=== PATIENT | female | born 1955 | race Caucasian/White ===

== ENCOUNTER 2020-07-11 10:33 | Emergency (ER) | payer MEDICARE, OTHER, SELFPAY ==
--- NOTE | ~2020-07-11 | XR_ITS ---
EXAMINATION: XR KNEE, LEFT CLINICAL INFORMATION: Pain COMPARISON: None TECHNIQUE: Four views of the left knee. FINDINGS: There is no acute fracture or subluxation. There is generalized osteopenia. There is a small peripherally corticated structure superimposing over the lateral femoral condyle. This may represent a small erosion. No significant joint fluid or opaque loose body. Trace proliferative changes. Extensive arterial calcification XR/XR knee LT 3V IMPRESSION: No acute fracture or subluxation. Minimal degenerative changes. No definite joint fluid
[2020-07-11 11:39] VITALS: BP 125/69; PULSE 61; RESP 18; TEMP 37.8; O2SAT 98; BMI 33.7
--- NOTE | 2020-07-11 13:31 | ED.LOWEXIN ---
HPI - Extremity Injury (Lower) General Chief Complaint: Extremity Injury, Lower Stated Complaint: knee pain Time Seen by Provider: 07/11/20 12:15 Source: patient Mode of arrival: ambulatory Limitations: no limitations History of Present Illness HPI Narrative: Left knee pain states was playing around grandson and and has pain to the medial aspect of the left knee. This occurred yesterday. No fall/ swelling or redness MD complaint: knee injury Onset (ago): day(s) Injury: Left: knee Place: home Severity: mild Relieving factors: immobilization Exacerbating factors: weight bearing Other symptoms: none Related Data Allergies Allergy/AdvReac Type Severity Reaction Status Date / Time No Known Allergies Allergy Verified 07/11/20 12:15 Review of Systems Review of Systems: Constitutional: No Weight loss, No Fever, No Chills, No Night Sweats, No Fatigue, No Malaise ENT/Mouth: No Hearing loss, No Ear Pain, No Nasal Congestion, No Sinus Pain, No Hoarseness, No sore throat, No Rhinorrhea, No Swallowing Difficulty Eyes: No Eye Pain, No Swelling, No Redness, No Foreign Body, No Discharge, No Vision Changes Cardiovascular: Negative Respiratory: Negative Gastrointestinal: Negative Genitourinary: Negative Musculoskeletal: No joint pain, No Myalgias, No Joint Swelling, knee pain as noted per HPI Skin: No Skin Lesions, No rash Neuro: No Weakness, No Numbness, No Paresthesias, No Loss of Consciousness, No Dizziness, No Headache Psych: No Anxiety/Panic, No Depression, No SI/HI/AH/VH, No Social Issues Heme/Lymph: Negative Endocrine: No Polyuria, No Polydipsia, No Temperature Intolerance Yes all other systems are reviewed and are negative [facility] Past Medical History Medical History Breast cancer Surgical History (Updated 07/11/20 @ 11:43 by Stacy Graves RN) H/O: hysterectomy Liver transplant recipient S/P hip replacement Social History Social History Advance Directives: No Advance Directives Information Provided: Yes Physical Exam Vital Signs: Vital Signs: Last Vital Signs Temp 100.0 F 07/11/20 11:39 Pulse 61 07/11/20 11:39 Resp 18 07/11/20 11:39 BP 125/69 07/11/20 11:39 Pulse Ox 98 07/11/20 11:39 Body Mass Index 33.7 Reviewed Initial attempt temporal overdressed Oral 98.5 Const: General: cooperative and healthy appearing; No acute distress or intoxicated appearing Nutritional Appearance: average body habitus Orientation/consciousness: patient oriented x3 HENMT: Head: Yes normal to inspection Ears: hearing grossly normal bilaterally Neck: Neck: Yes normal visual inspection, No positive Brudzinski's sign, No positive Kernig's sign and No tender Thyroid: Thyroid normal Resp: Effort & Inspection: normal respiratory effort Auscultation: clear to auscultation bilaterally Cardio: Jugular venous distension: no JVD Rhythm: regular rhythm Heart sounds: S1 normal heart sound present and S2 normal heart sound present : General: Yes no CVA tenderness Back/Spine/Pelvis: Back: no CVA tenderness Skin: General skin exam: no rashes or lesions noted Neuro: General: patient oriented x3 Extrem: General: Yes normal to inspection Upper/lower leg/hip images: 1. Of pain over the medial aspect of the knee with slight ecchymosis otherwise no evidence of effusion, erythema, swelling. Negative Homans. Neurovascular intact. Course Course Course Narrative: X-ray without acute findings, knee mobilizer and outpatient follow-up with orthopedics. MDM - Extremity Injury (Lower) Medical Records Attestation: I reviewed the patient's medical records. Lab Data Attestation: I reviewed the patient's lab results. Imaging Data Left knee x-ray: Radiologist's impression: [address] [id number] ReportSigned Patient: Praveena Douglass TMR#: [id number]: 5Acct:[id number]/Sex: 64 / FADM Date: 07/11/20Loc: HO.EDAttending Dr: Ordering Physician: Johann Champion NP Date of Service: 07/11/20 Procedure(s): XR knee LT 3V Accession Number(s): [id number] cc: Johann Champion SR VICE PRESIDENT~ EXAMINATION: XR KNEE, LEFT CLINICAL INFORMATION: Pain COMPARISON: None TECHNIQUE: Four views of the left knee. FINDINGS: There is no acute fracture or subluxation. There is generalized osteopenia. There is a small peripherally corticated structure superimposing over the lateral femoral condyle. This may represent a small erosion. No significant joint fluid or opaque loose body. Trace proliferative changes. Extensive arterial calcification XR/XR knee LT 3V IMPRESSION: No acute fracture or subluxation. Minimal degenerative changes. No definite joint fluid Dictated By:TANI CASAS MDSigned By:<Electronically signed by TANI CASAS MD in OV>07/11/20 1255 DD/ 1215TD/TT: Manager Graphic: Discharge Plan Discharge Clinical Impression: Knee sprain Qualifiers: Encounter type: initial encounter Involved ligament of knee: medial collateral ligament Laterality: left Qualified Code(s): S83.412A - Sprain of medial collateral ligament of left knee, initial encounter Patient Disposition: Home, Self-Care Instructions: Knee Immobilizer (ED), Knee Sprain (ED) Additional Instructions: Ice, elevate, compress Knee immobilizer for comfort Tylenol for pain discomfort Follow-up with orthopedics as needed Return if any concerns or symptoms Thank you Referrals: Brielle Jaimes MD [Physician] - 1 week
== END 2020-07-11 14:30 | disposition home or self-care (01) ==
PROVIDERS: Emergency Provider Emergency Medicine Emergency Medical Services; PCP Internal Medicine
DX: S83.412A Sprain of medial collateral ligament of left knee, initial encounter (principal); X50.1XXA Overexertion from prolonged static or awkward postures, initial encounter; Y93.83 Activity, rough housing and horseplay; Y92.019 Unspecified place in single-family (private) house as the place of occurrence of the external cause; Y99.9 Unspecified external cause status
CPT/HCPCS: 73562; 99283

== ENCOUNTER → 2021-10-25 12:57 | Outpatient (BNVA) | payer MEDICARE, OTHER, SELFPAY | PROVIDERS: PCP Internal Medicine; Visit Provider Physician Assistant | DX: K74.3 Primary biliary cirrhosis (principal); K52.9 Noninfective gastroenteritis and colitis, unspecified; K59.09 Other constipation | CPT/HCPCS: 99202 ==

== ENCOUNTER 2021-10-27 09:58 | Outpatient (REF) | payer MEDICARE, OTHER, SELFPAY ==
[2021-10-27 10:16] LABS: MANUAL DIFF FLAG NO
[2021-10-27 10:52] LABS: Basophils Percent Auto 0.7 % (0-2); Eosinophils Absolute Auto 0.1 X10*3/uL (0.0-0.4); Eosinophils Percent Auto 2.8 % (0-4); Hematocrit 39.8 % (37.0-47.0); Hemoglobin 12.9 g/dl (12.0-16.0); Imm Gran Abs Auto 0.02 X10*3/uL (0.00-0.03); Imm Gran Pct Auto 0.5 % (0.0-0.4); Lymphocytes Absolute Auto 0.9 X10*3/uL (1.2-4.9); Lymphocytes Percent Auto 19.9 % (20-40); Mean Corpuscular HGB Conc 32.4 g/dl (31.0-35.0); Mean Corpuscular Hemoglobin 29.4 pg (27.0-33.0); Mean Corpuscular Volume 90.7 fL (80.0-98.0); Mean Platelet Volume 10.2 fL (9.4-12.3); Monocytes Absolute Auto 0.4 X10*3/uL (0.1-1.2); Monocytes Percent Auto 9.5 % (2-11); Neutrophils Absolute Auto 2.9 x10*3/uL (2.0-8.3); Neutrophils Percent Auto 66.6 % (45-73); Platelet Count 129 X10*3/uL (160-400); Red Blood Count 4.39 X10*6/uL (4.20-5.50); Red Cell Distribution Width 14.2 % (11.0-16.0); White Blood Count 4.3 X10*3/uL (4.8-10.8)
[2021-10-27 11:29] LABS: Erythrocyte Sedimentation Rate 5 MM/HR (0-20)
[2021-10-27 11:38] LABS: Alanine Aminotransferase 21 U/L (0-31); Albumin Level 4.1 g/dL (3.5-5.0); Alkaline Phosphatase 146 U/L (39-117); Anion Gap 13 (12-20); Aspartate Amino Transferase 27 U/L (5-31); Bilirubin Total 1.3 mg/dL (0.0-1.0); Blood Urea Nitrogen 12 mg/dL (9-16); C Reactive Protein 2.99 mg/dL (< or = 0.50); Carbon Dioxide 24 mmol/L (22-29); Chloride 107 mmol/L (96-108); Estimated Glomerular Filt Rate > 60; Glucose Random 95 mg/dL (60-115); Potassium 4.2 mmol/L (3.3-5.1); Sodium 140 mmol/L (135-145)
[2021-10-27 11:48] LABS: Thyroid Stimulating Hormone 1.15 uIU/mL (0.32-4.0)
[2021-10-27 17:46] LABS: CDiff Gene PCR NEGATIVE (Negative)
[2021-11-01 07:32] LABS: Transglutaminase IgA <1.0 U/mL
[2021-11-03 14:32] LABS: Endomysial IgA Antibody Negative (Negative)
== END 2021-10-27 09:59 | disposition home or self-care (01) ==
LOC: HO.LAB 09:58
PROVIDERS: PCP Internal Medicine; Visit Provider Physician Assistant
DX: K59.09 Other constipation (principal); K52.9 Noninfective gastroenteritis and colitis, unspecified; K74.3 Primary biliary cirrhosis
CPT/HCPCS: 36415; 80053; 84443; 85025; 85652; 86140; 86231; 86364; 87493

== ENCOUNTER 2021-11-02 07:23 | Day surgery (SDC) | payer MEDICARE, OTHER, SELFPAY ==
--- NOTE | 2021-11-01 10:30 | P.CONAN_ITS ---
Documented by User: Shyann Griffin NP 11/01/21 10:34 HPI - Anesthesia Eval Consult details Narrative: 66yo F for Upper Endoscopy and Colonoscopy s/p liver transplant 2015 d/t primary biliary cirrhosis. ? recurrence based on biopsy PMFSH Active Problems Active Problems: All Active Problems (Updated 10/27/21 @ 13:27 by Melissa Ordaz PA-C) Chronic diarrhea (Acute) Primary biliary cholangitis (Acute) Past Medical History Medical History (Updated 11/01/21 @ 10:31 by Shyann Griffin NP) Breast cancer Primary biliary cholangitis Surgical History Surgical History H/O: hysterectomy Liver transplant recipient S/P hip replacement Social History Social History (Updated 10/27/21 @ 13:24 by Melissa Ordaz PA-C) Household Members: Spouse Household Members Other:: , children Alcohol intake: never Patient Tobacco Use Status: Former Tobacco user Use of substances other than those prescribed or required for medical reasons: No Advance Directives: No Advance Directives Information Provided: Yes Recently lost weight without trying: Yes How much weight loss: 14-23 pounds Eating poorly because of decreased appetite: Yes Nutrition screen score: 5 Current occupational status: retired Meds Allergies Allergy/AdvReac Type Severity Reaction Status Date / Time hydromorphone [From Dilaudid] Allergy Severe Hallucinati Verified 10/25/21 13:11 ons Sulfa (Sulfonamide AdvReac Severe Rash Verified 10/25/21 13:11 Antibiotics) Home Medications Medication Instructions Recorded Confirmed Last Taken Type cholecalciferol (vitamin D3) 1,250 1,250 mcg PO QWEEK 10/25/21 10/25/21 Unknown History mcg (50,000 unit) capsule citalopram 40 mg tablet (Celexa) 40 mg PO DAILY 10/25/21 10/25/21 11/02/21 History 40 mg gabapentin 300 mg tablet,extended 300 mg PO TID 10/25/21 10/25/21 Unknown History release 24 hr lisinopril 10 mg tablet 10 mg PO DAILY 10/25/21 10/25/21 11/02/21 History 10 mg tacrolimus 1 mg capsule, 1 mg PO Q12H 10/25/21 10/25/21 11/02/21 History immediate-release 1 mg ursodiol 300 mg capsule 300 mg PO TID 10/25/21 10/25/21 11/02/21 History 300 mg Exam Exam Date and Time: November 01, 2021 1030 Pertinent Lab Results Pertinent Lab Results: Laboratory Tests 10/27/21 10/27/21 10:14 10:14 WBC 4.3 L Hgb 12.9 Hct 39.8 Plt Count 129 L Sodium 140 Potassium 4.2 Chloride 107 Carbon Dioxide 24 BUN 12 Creatinine 0.81 Total Bilirubin 1.3 H AST 27 ALT 21 Alkaline Phosphatase 146 H C-Reactive Protein 2.99 H Total Protein 7.0 Albumin 4.1 TSH 1.15 INR 1.2 on 07/2021 Assessment and Plan Assessment Anesthesia Assessment: Chart Reviewed Documented by User: Kamar Domínguez MD 11/02/21 08:25 [facility] Past Medical History Medical History (Updated 11/01/21 @ 10:31 by Shyann Griffin NP) Breast cancer Primary biliary cholangitis Family History Family history of problems with anesthesia: No Surgical History Surgical History H/O: hysterectomy Liver transplant recipient S/P hip replacement History of Problems with Anesthesia: No Social History Social History (Updated 10/27/21 @ 13:24 by Melissa Ordaz PA-C) Household Members: Spouse Household Members Other:: , children Alcohol intake: never Patient Tobacco Use Status: Former Tobacco user Use of substances other than those prescribed or required for medical reasons: No Advance Directives: No Advance Directives Information Provided: Yes Recently lost weight without trying: Yes How much weight loss: 14-23 pounds Eating poorly because of decreased appetite: Yes Nutrition screen score: 5 Current occupational status: retired Meds Allergies Allergy/AdvReac Type Severity Reaction Status Date / Time hydromorphone [From Dilaudid] Allergy Severe Hallucinati Verified 10/25/21 13:11 ons Sulfa (Sulfonamide AdvReac Severe Rash Verified 10/25/21 13:11 Antibiotics) Home Medications Medication Instructions Recorded Confirmed Last Taken Type cholecalciferol (vitamin D3) 1,250 1,250 mcg PO QWEEK 10/25/21 10/25/21 Unknown History mcg (50,000 unit) capsule citalopram 40 mg tablet (Celexa) 40 mg PO DAILY 10/25/21 10/25/21 11/02/21 History 40 mg gabapentin 300 mg tablet,extended 300 mg PO TID 10/25/21 10/25/21 Unknown History release 24 hr lisinopril 10 mg tablet 10 mg PO DAILY 10/25/21 10/25/21 11/02/21 History 10 mg tacrolimus 1 mg capsule, 1 mg PO Q12H 10/25/21 10/25/21 11/02/21 History immediate-release 1 mg ursodiol 300 mg capsule 300 mg PO TID 10/25/21 10/25/21 11/02/21 History 300 mg Exam Airway Mallampati Class: II TM Dist: >3cm Neck ROM: Full Loose/Missing/Broken Teeth: No Heart: rrr+[id number] Lungs: cta b/l Assessment and Plan Assessment Anesthesia Assessment: Anesthesia Plan Discussed Final Anesthetic Review Family History of Problems with Anesthesia: No History of Problems with Anesthesia: No NPO: Yes ASA Class: III Final Preanesthetic Review: No Changes in Pt Med Stat, Meds/Allgs Chart Reviewed, Consent Obtained/Reviewed and Anes Risks/Benef Reviewed Patient Risk: Intermediate Procedure Risk: Low Assessment/Block/Sedation in SS: Assess/Block/Sedation-SS Anesthetic Plan Anesthetic Plan: MAC: and Agree w/ Assess. and Plan Disposition: Standard PACU
[2021-11-02] VITALS (7 sets, daily range): BP systolic 111–125; BP diastolic 61–79; PULSE 85–107; RESP 16–20; TEMP 36.6–36.8; O2SAT 91–98; BMI 29.2
--- NOTE | ~2021-11-02 | XR_ITS ---
EXAMINATION: XR CHEST CLINICAL INFORMATION: Shortness of breath and cough. Postoperative. COMPARISON: None TECHNIQUE: Frontal view of the chest was obtained. FINDINGS: The patient is slightly rotated into a left posterior oblique position. Lungs are adequately expanded and grossly clear. No evidence of airspace disease or pleural effusion. Cardiac silhouette has normal size and contour. Pulmonary vascular pattern is normal. Multilevel degenerative arthropathy of the spine and shoulders. Cholecystectomy clips in right upper quadrant of the abdomen. XR/XR chest 1V IMPRESSION: No evidence of pneumonia. No acute pulmonary findings.
[2021-11-02] MEDS: Lactated Ringers 1,000 ML 100 ML IVCONT (07:54)
--- NOTE | 2021-11-02 08:38 | MHC.SHP ---
Pre-Procedural Eval Section A Date of Service: 11/02/21 The patient is an INPATIENT: No The History & Physical has been completed within 30 days and I have reviewed it.: Yes Section B Chief Complaint: Noninfective gastroenteritis and colitis,cirrhosis Allergies: Allergies Allergy/AdvReac Type Severity Reaction Status Date / Time hydromorphone [From Dilaudid] Allergy Severe Hallucinati Verified 10/25/21 13:11 ons Sulfa (Sulfonamide AdvReac Severe Rash Verified 10/25/21 13:11 Antibiotics) Plan Diagnosis/Plan: Unchanged I have reviewed the history and physical and performed a pertinent physical examination on my patient. No changes have occurred unless specified.EGD and colonsocopy for eval for diarrhea
--- NOTE | 2021-11-02 08:38 | W.PM.OPN ---
Operative Note Operative Note Date of Service: 11/02/21 Narrative: Operative Information Procedure Description: EGD, Colonoscopy Indication: diarrhea Anesthesia: MAC FLEXIBLE TRANSORAL UPPER GASTROINTESTINAL ENDOSCOPY AND COLONOSCOPY PROCEDURE NOTE UPPER ENDOSCOPY Consent: Indications for the procedure and potential complications of bleeding, perforation, reaction to medications and missed diagnosis were discussed with the patient and informed consent was obtained. Instrument: Olympus GIF H 190 J mid size upper endoscope Monitoring: Vital signs and clinical assessment, continuous EKG monitoring, Pulse oximetry, Carbon Dioxide monitoring and blood pressure monitoring were done throughout the procedure. Procedure: The patient was placed in the left lateral decubitis position and pre-procedure medications were administered and a bite block was placed. The endoscope was inserted into the mouth and advanced under direct vision to the third part of duodenum. A careful inspection was made as the upper endoscope was withdrawn including a retroflexed examination of the proximal stomach; Findings and interventions are described below. Findings: Larynx:normal Esophagus: GE junction at 35 cm, diaphragm hiatus at 35 cm, bogginess and erythema at GEJ Stomach: Streaky gastritis and erythema at antrum with erosion noted. Biopsies were obtained. Grade 2 flap valve on retroflexed examination of the cardia. Duodenum: Normal bulb and descending duodenum, bx taken Intervention: Biopsies as noted above COLONOSCOPY Instrument: Olympus variable stiffness pediatric scope 190L Colonoscopy Monitoring: Vital signs and clinical assessment, continuous EKG monitoring, Pulse oximetry, Carbon Dioxide monitoring and blood pressure monitoring were done throughout the procedure. Colon withdrawal time was 10 minutes. Procedure: The patient was placed in the left lateral decubitis position and pre-procedure medications were administered. After a digital rectal examination of the ano-rectum, the video colonoscope was inserted into the rectum and advanced through the colon to the cecum/TI. The colonoscope was slowly withdrawn in a retrograde panoramic fashion and the colon mucosa was carefully examined including a retroflexed view of the rectum. Findings and interventions are described below. Procedure Difficulty: easy Findings: Terminal Ileum-normal, bx taken some bilious colored noted in colon random colon bx taken Cecum:normal Ascending Colon: normal Transverse Colon -normal Descending Colon:normal Sigmoid Colon: 8 mm sessile polyp removed with cold snare and then 1 clip applied for hemostasis Rectum: Retroflexion with small internal hemorrhoids, grade I Anorectum - normal Colon preparation: [place] Bowel Preparation Scale Right colon; 3 Transverse colon: 3 Left colon; 3 (0 = Unprepared colon segment with mucosa not seen due to solid stool that cannot be cleared. 1 = Portion of mucosa of the colon segment seen, but other areas of the colon segment not well seen due to staining, residual stool and/or opaque liquid. 2 = Minor amount of residual staining, small fragments of stool and/or opaque liquid, but mucosa of colon segment seen well. 3 = Entire mucosa of colon segment seen well with no residual staining, small fragments of stool or opaque liquid) Impression and Post Procedure Diagnosis: Endoscopy Findings: erosive gastritis esophagitis Colonoscopy Findings: polyp internal hemorrhoids Plan: Await Pathology results Repeat Colonoscopy in 5 years if adenomatous polyp, 10 yrs if hyperplastic or earlier if clinically indicated High fiber diet leaflet avoid straining at stool, epsom salts and sitz bath, anusol supps or cream if bx neg can consider trial of cholestyramine or welchol Above findings were reviewed with the patient and relevant handouts were provided if indicated.
--- NOTE | 2021-11-02 09:26 | PC.NURSE ---
patient awake coughing/ vomiting sao2 88% RA 3lt N/C applied patient c/o of left sided chest pain Dr. Galloway aware at bedside Dr. Domínguez notified.
[2021-11-02] MEDS: Albuterol/Iprat 2.5/0.5MG 3 ML AMPUL.NEB INHALE (09:39)
[2021-11-02] MEDS: Ampicillin Sodium/Sulbactam Na 1.5 GM in 0.9 % Sodium Chloride 100 ML IV (10:10)
== END 2021-11-02 09:20 | disposition home or self-care (01) ==
PROVIDERS: PCP Internal Medicine; Visit Provider Internal Medicine Gastroenterology
PROC: (CPT 45385; principal; 2021-11-02 08:30)
DX: K52.9 Noninfective gastroenteritis and colitis, unspecified (principal); D12.5 Benign neoplasm of sigmoid colon; K64.0 First degree hemorrhoids; K29.50 Unspecified chronic gastritis without bleeding; K20.80 Other esophagitis without bleeding; Z94.4 Liver transplant status; R06.02 Shortness of breath; R07.81 Pleurodynia; K44.9 Diaphragmatic hernia without obstruction or gangrene; Z79.899 Other long term (current) drug therapy; Z88.0 Allergy status to penicillin; Z88.8 Allergy status to other drugs, medicaments and biological substances
CPT/HCPCS: 45385; 45380; 43239; 71045; 88305; 88342; 94640; J0295

== ENCOUNTER 2021-11-02 10:16 | Inpatient (IN) | payer MEDICARE, OTHER, SELFPAY ==
--- NOTE | 2021-11-02 | ECG_ITS ---
Test Reason : sob Blood Pressure : / mmHG Vent. Rate : 089 BPM Atrial Rate : 089 BPM P-R Int : 148 ms QRS Dur : 074 ms QT Int : 378 ms P-R-T Axes : 041 -16 -22 degrees QTc Int : 459 ms Normal sinus rhythm Nonspecific ST and T wave abnormality Abnormal ECG No previous ECGs available Referred By: Generic ED Physician Electronically Signed By:JESSICA KEMP MD
--- NOTE | ~2021-11-02 | CT_ITS ---
EXAMINATION: CT ANGIOGRAM OF THE CHEST WITH AND WITHOUT CONTRAST (CT PULMONARY ANGIOGRAM FOR PE) CLINICAL INFORMATION: Reason for Exam hypoxia, left sided chest pain COMPARISON: None TECHNIQUE: Prior to contrast administration, noncontrast localization images were obtained. Subsequently, multidetector volumetric imaging was performed from the thoracic inlet to below the diaphragms following the administration of 80 mL Omnipaque 350 intravenous contrast. No contrast reaction reported Sagittal, coronal, and MIP oblique sagittal reformatted images were obtained on the CT workstation, uploaded to PACS, and reviewed. This CT examination was performed using dose optimization techniques as appropriate, variously including the following: *Automated exposure control *Adjustment of mA and/or kV according to patient size (this includes techniques or standardized protocols for targeted exams where dose is matched to indication/reason for exam; i.e. extremities or head) *Use of iterative reconstruction technique Total exam dose-length product 184 mGy-cm FINDINGS: QUALITY OF STUDY/CONTRAST BOLUS: Satisfactory. PULMONARY ARTERIES: No central or segmental pulmonary emboli. THORACIC AORTA: No aneurysm or dissection. LUNG: There is a patchy alveolar infiltrate, in the posterior left upper lung, left mid lung, extending down to the left mid to lower lung. This likely reflects pneumonia. Right lung grossly clear. PLEURA: No pleural effusion or pneumothorax. MEDIASTINUM: Normal heart size. No pericardial effusion. No hilar or mediastinal lymphadenopathy. No evidence of septal bowing or right heart strain. Coronary artery calcifications are observed. CHEST WALL/AXILLA: No axillary or internal mammary lymphadenopathy. OSSEOUS STRUCTURES: No acute or suspicious osseous abnormality. UPPER ABDOMEN: There is a moderate amount of perisplenic ascites. The spleen is prominent. Stomach is diffusely thick walled fluid-filled. There are surgical clips in the gallbladder fossa distention of the pancreatic duct. These findings can all be correlated with a follow-up CT of the abdomen and pelvis to be performed with oral and IV contrast. No reflux of contrast into the hepatic veins to suggest elevated right heart pressures. CT/CT angio chest PE protocol IMPRESSION: Splenomegaly. Perisplenic ascites. Left mid and lower lung pneumonia. No evidence for PE. VTE: negative
[2021-11-02 10:35] VITALS: BP 119/66; PULSE 88; RESP 18; TEMP 36.7; O2SAT 98; BMI 30.4
--- NOTE | 2021-11-02 10:36 | ED_ITS ---
HPI - Chest Pain General Chief Complaint: Dyspnea Stated Complaint: Chest pain Time Seen by Provider: 11/02/21 10:36 Source: patient, RN notes reviewed and old records reviewed Mode of arrival: ambulatory Limitations: no limitations History of Present Illness HPI narrative: 66 yo female with history of primary biliary cholangitis 6 years ago at [facility], chronic diarrhea, hx breast cancer in 2000 s/p lumpectomy and XRT, poor appetite with 30 lb weight loss since July who presents to the ER for evaluation of left sided chest pain, hypoxia, vomiting, shortness of breath while in recovery from a EGD/colonoscopy suite today. Patient reports waking up feeling at her baseline today. She did not eat or drink today. She went to for her EGD/colonoscopy for evaluation of poor appetite, chronic diarrhea and weight loss. She states when she woke up from anesthesia she vomited, was short of breath had left-sided chest pain. She reports the pain is in her uppr left chest, worse with deep breaths, movement and palpation. No radiation. She placed on supplemental O2 and brought to the ER for further evaluation. MD complaint: chest pain Onset (ago): minute(s) Timing of current episode: constant Prior episodes: No Onset: other Pain location: left chest Pain radiation: none Severity: moderate Pain scale (0-10): 7 Quality: aching and sharp Relieving factors: nothing Exacerbating factors: inspiration, palpation and movement Associated symptoms: nausea, vomiting, dyspnea and cough Risk Factors Coronary artery disease risk factors: none Thoracic aortic dissection risk factors: none Related Data Home Medications Medication Instructions Recorded Confirmed citalopram 40 mg tablet (Celexa) 40 mg PO DAILY 10/25/21 11/02/21 lisinopril 10 mg tablet 10 mg PO DAILY 10/25/21 11/02/21 acetaminophen 325 mg tablet 650 mg PO Q4H PRN Pain (Scale 11/02/21 11/02/21 Score 1-3) calcium carbonate 300 mg (750 mg) 300 mg PO QID PRN Indigestion 11/02/21 11/02/21 chewable tablet (Tums) cholecalciferol (vitamin D3) 25 25 mcg PO DAILY 11/02/21 11/02/21 mcg (1,000 unit) tablet (Vitamin D3) gabapentin 300 mg capsule 1 - 3 cap PO BEDTIME 11/02/21 11/02/21 tacrolimus 0.5 mg capsule, 1 cap PO BID 11/02/21 11/02/21 immediate-release ursodiol 500 mg tablet 1 tab PO BID 11/02/21 11/02/21 Previous Rx's Medication Instructions Recorded methylcellulose (laxative) 500 mg 500 mg PO BID #60 tabs 10/25/21 tablet (Citrucel) Allergies Allergy/AdvReac Type Severity Reaction Status Date / Time hydromorphone [From Dilaudid] Allergy Severe Hallucinati Verified 10/25/21 13:11 ons Sulfa (Sulfonamide AdvReac Severe Rash Verified 10/25/21 13:11 Antibiotics) Review of Systems Review of Systems: Constitutional: No Fever, No Chills, +weight loss ENT/Mouth: No sore throat, No Rhinorrhea, No Swallowing Difficulty Eyes: No Eye Pain, No Swelling, No Redness Cardiovascular: + Chest Pain, + SOB, + Orthopnea, No Edema Respiratory: + Cough, No Sputum, No Wheezing, +dyspnea Gastrointestinal: + Nausea, + Vomiting, + Diarrhea, No abdominal Pain, No Hematochezia, No Melena Genitourinary: No Dysuria, No Urinary Frequency, No Hematuria Musculoskeletal: No joint pain, No Myalgias Skin: No Skin Lesions, No rash Neuro: + Weakness, No Numbness, No Dizziness, No Headache Psych: No Anxiety/Panic, + Depression Heme/Lymph: No Bruising, No Lymphadenopathy Endocrine: No Polyuria, No Polydipsia PMFSH Past Medical History Medical History Breast cancer Primary biliary cholangitis Surgical History H/O: hysterectomy Liver transplant recipient S/P hip replacement Family History Family History Mother CAD (coronary artery disease) Sister Ovarian cancer Social History Social History Household Members: Spouse Household Members Other:: , children Alcohol intake: never Patient Tobacco Use Status: Former Tobacco user Use of substances other than those prescribed or required for medical reasons: No Advance Directives: No Current occupational status: retired Physical Exam Vital Signs: Vital Signs: Last Vital Signs Temp 99.6 F 11/02/21 16:00 Pulse 100 11/02/21 16:00 Resp 18 11/02/21 16:00 BP 139/78 11/02/21 16:00 Pulse Ox 96 11/02/21 16:00 O2 Del Method 11/02/21 16:00 O2 Flow Rate 2 11/02/21 16:00 BMI result Body Mass Index 30.4 Appearance: Alert. Oriented X3. No acute distress. Eyes: Pupils equal, round and reactive to light. ENT: Pharynx normal. Neck: Normal inspection. Neck supple. CVS: Normal heart rate and rhythm. Pulses normal. Tenderness of the chest wall on the upper left quadrant and extending into left axilla Respiratory: No respiratory distress. Breath sounds with coarse crackles at the left base. Abdomen: Well-healed surgical scar on the abdomen. Soft and nontender. +BS x4 Skin: Skin warm and dry. Normal skin color. Normal skin turgor. No rashes. Extremities: No lower extremity edema. Neuro: Oriented X 3. No motor deficit. No sensory deficit. Course Course Course Narrative: 66-year-old female with a history of primary biliary cholangitis status post liver transplant 6 years ago who presents to the ER for evaluation of left-sided chest pain, shortness of breath and vomiting after she had a routine and off the being colonoscopy in the GI suite today. Patient reportedly dropped her oxygen saturations into the 80s, with vomiting, very short of breath at the time. A chest x-ray was done in postop and patient was brought to the emergency department. On arrival to the ER patient reports left-sided chest pain, close to her left axillary area that is reproducible. Initial SpO2 98% on room air, however when patient was laid flat she desatted to 81%, was very short of breath and tachypneic. She also spiked a low-grade fever to 100.5. Suspect aspiration pneumonitis. Empiric IV Zosyn ordered. She did get a dose of IV Unasyn in the procedure suite. Case discussed with Dr. Galloway who is recommending CT angio to rule out PE given her breast cancer history, shortness of breath, chest pain. Reevaluation(s) Reevaluation #1: Labs show pancytopenia, her hemoglobin dropped point half in the last week. Will plan to heme check stools when she has a bowel movement. Platelets are also slightly lower at 93,000 from 129,000. Troponin is less than 3.5. Given her pain onset is less than 6 hours ago, will plan to repeat her troponin 3 hours. EKG without STEMI. Pain improved after morphine. Lab analyzer down, unable to get CTA of her chest until her chemistry is back. Reevaluation #2: CTA showing left middle and left lung pneumonia. Remains on O2. Will plan for admission. MDM - Chest Pain Medical Records Data Attestation: I reviewed the patient's medical records. Lab Data Attestation: I reviewed the patient's lab results. Result diagrams: 11/02/21 11:14 11/02/21 11:14 Labs: Lab Results 11/02/21 11/02/21 11/02/21 Range/Units 11:14 11:14 11:14 WBC 4.0 L (4.8-10.8) X10*3/uL RBC 3.85 L (4.20-5.50) X10*6/uL Hgb 11.4 L (12.0-16.0) g/dl Hct 34.9 L (37.0-47.0) % MCV 90.6 (80.0-98.0) fL MCH 29.6 (27.0-33.0) pg MCHC 32.7 (31.0-35.0) g/dl RDW 14.2 (11.0-16.0) % Plt Count 93 L D (160-400) X10*3/uL MPV 10.0 (9.4-12.3) fL Immature Gran % (Auto) 0.5 H (0.0-0.4) % Neut % (Auto) 78.6 H (45-73) % Lymph % (Auto) 11.8 L (20-40) % [place] % (Auto) 7.3 (2-11) % Eos % (Auto) 1.3 (0-4) % Baso % (Auto) 0.5 (0-2) % Lymph # (Auto) 0.5 L (1.2-4.9) X10*3/uL [place] # (Auto) 0.3 (0.1-1.2) X10*3/uL Eos # (Auto) 0.1 (0.0-0.4) X10*3/uL Baso # (Auto) 0.0 (0.0-0.2) X10*3/uL Abs Immat Gran (auto) 0.02 (0.00-0.03) X10*3/uL Absolute Neuts (auto) 3.1 (2.0-8.3) x10*3/uL Absolute Nucleated RBC 0.000 (0.0-0.012) X10*3/uL Nucleated RBC % (auto) 0.0 (0.0-0.2) /100WBC PT (10.0-13.1) SEC INR (0.9-1.1) Sodium 143 (135-145) mmol/L Potassium 3.9 (3.3-5.1) mmol/L Chloride 108 (96-108) mmol/L Carbon Dioxide 24 (22-29) mmol/L Anion Gap 15 (12-20) BUN 9 (9-16) mg/dL Creatinine 0.73 (0.5-1.4) mg/dL Estim Creat Clear Calc 62.9 Estimated GFR > 60 Random Glucose 106 (60-115) mg/dL Lactic Acid (0.5-2.0) mmol/L Calcium 8.6 (8.4-10.2) mg/dL Magnesium 1.6 (1.6-2.6) mg/dL Total Bilirubin 1.4 H (0.0-1.0) mg/dL Direct Bilirubin 0.9 H (0.0-0.5) mg/dL AST 21 (5-31) U/L ALT 13 (0-31) U/L Alkaline Phosphatase 132 H (39-117) U/L Troponin I High Sens < 3.5 (<3.5-17.0) ng/L B-Natriuretic Peptide 63 (<100) pg/mL Total Protein 6.0 L (6.5-8.0) g/dL Albumin 3.5 (3.5-5.0) g/dL COVID-19 (LINDSEY) (Negative) COVID-19 Clin Com 11/02/21 11/02/21 11/02/21 Range/Units 11:57 11:58 11:58 WBC (4.8-10.8) X10*3/uL RBC (4.20-5.50) X10*6/uL Hgb (12.0-16.0) g/dl Hct (37.0-47.0) % MCV (80.0-98.0) fL MCH (27.0-33.0) pg MCHC (31.0-35.0) g/dl RDW (11.0-16.0) % Plt Count (160-400) X10*3/uL MPV (9.4-12.3) fL Immature Gran % (Auto) (0.0-0.4) % Neut % (Auto) (45-73) % Lymph % (Auto) (20-40) % [place] % (Auto) (2-11) % Eos % (Auto) (0-4) % Baso % (Auto) (0-2) % Lymph # (Auto) (1.2-4.9) X10*3/uL [place] # (Auto) (0.1-1.2) X10*3/uL Eos # (Auto) (0.0-0.4) X10*3/uL Baso # (Auto) (0.0-0.2) X10*3/uL Abs Immat Gran (auto) (0.00-0.03) X10*3/uL Absolute Neuts (auto) (2.0-8.3) x10*3/uL Absolute Nucleated RBC (0.0-0.012) X10*3/uL Nucleated RBC % (auto) (0.0-0.2) /100WBC PT 14.6 H (10.0-13.1) SEC INR 1.3 H (0.9-1.1) Sodium (135-145) mmol/L Potassium (3.3-5.1) mmol/L Chloride (96-108) mmol/L Carbon Dioxide (22-29) mmol/L Anion Gap (12-20) BUN (9-16) mg/dL Creatinine (0.5-1.4) mg/dL Estim Creat Clear Calc Estimated GFR Random Glucose (60-115) mg/dL Lactic Acid 1.4 (0.5-2.0) mmol/L Calcium (8.4-10.2) mg/dL Magnesium (1.6-2.6) mg/dL Total Bilirubin (0.0-1.0) mg/dL Direct Bilirubin (0.0-0.5) mg/dL AST (5-31) U/L ALT (0-31) U/L Alkaline Phosphatase (39-117) U/L Troponin I High Sens (<3.5-17.0) ng/L B-Natriuretic Peptide (<100) pg/mL Total Protein (6.5-8.0) g/dL Albumin (3.5-5.0) g/dL COVID-19 (LINDSEY) Negative (Negative) COVID-19 Clin Com See Note ECG Data ECG #1: Attestation: I personally reviewed and interpreted this ECG as follows: ECG interpretation date: 11/02/21 ECG interpretation time: 15:28 Prior ECG tracings: not available for review Interpretation: Normal sinus rhythm, heart rate 89 beats per minute, normal IA interval, normal QTC, no ST segment elevations or depressions. Critical Care Time Critical Care Time Critical Care Time: Yes Total Critical Care Time: 38 Attestation: I have personally provided critical care time exclusive of time spent on separately billable procedures. Time includes review of lab data, radiology results, discussion with consultants, and monitoring for potential decompensation. Intervention performed as documented. Discharge Plan Discharge Clinical Impression: Aspiration pneumonitis, Acute respiratory failure with hypoxia Patient Disposition: Admitted As Inpatient
[2021-11-02 11:17] LABS: MANUAL DIFF FLAG NO
[2021-11-02 11:36] LABS: Basophils Percent Auto 0.5 % (0-2); Eosinophils Absolute Auto 0.1 X10*3/uL (0.0-0.4); Eosinophils Percent Auto 1.3 % (0-4); Hematocrit 34.9 % (37.0-47.0); Hemoglobin 11.4 g/dl (12.0-16.0); Imm Gran Abs Auto 0.02 X10*3/uL (0.00-0.03); Imm Gran Pct Auto 0.5 % (0.0-0.4); Lymphocytes Absolute Auto 0.5 X10*3/uL (1.2-4.9); Lymphocytes Percent Auto 11.8 % (20-40); Mean Corpuscular HGB Conc 32.7 g/dl (31.0-35.0); Mean Corpuscular Hemoglobin 29.6 pg (27.0-33.0); Mean Corpuscular Volume 90.6 fL (80.0-98.0); Monocytes Absolute Auto 0.3 X10*3/uL (0.1-1.2); Monocytes Percent Auto 7.3 % (2-11); Neutrophils Absolute Auto 3.1 x10*3/uL (2.0-8.3); Neutrophils Percent Auto 78.6 % (45-73); Red Blood Count 3.85 X10*6/uL (4.20-5.50); Red Cell Distribution Width 14.2 % (11.0-16.0)
[2021-11-02 11:37] LABS: Troponin-I High Sensitivity < 3.5 ng/L (<3.5-17.0)
[2021-11-02 11:43] LABS: Platelet Count 93 X10*3/uL (160-400)
[2021-11-02 12:00] VITALS: PULSE 110; RESP 22; TEMP 38.1; O2SAT 81
[2021-11-02 12:11] LABS: B Type Natriuretic Peptide 63 pg/mL (<100)
[2021-11-02] MEDS: ondansetron HCL 4 MG/2 ML VIAL IVPUSH (12:17)
[2021-11-02] MEDS: Morphine Sulfate 4 MG/ML CARTRIDGE IVPUSH (12:17)
[2021-11-02 12:26] LABS: COVID-19 Test Negative (Negative)
[2021-11-02] MEDS: Acetaminophen 325 MG TABLET 975 MG PO (12:28)
[2021-11-02 12:31] LABS: INTERNATIONAL NORM RATIO 1.3 (0.9-1.1); Prothrombin Time 14.6 SEC (10.0-13.1)
[2021-11-02 13:23] LABS: Lactic Acid 1.4 mmol/L (0.5-2.0)
[2021-11-02 13:42] LABS: Alanine Aminotransferase 13 U/L (0-31); Albumin Level 3.5 g/dL (3.5-5.0); Alkaline Phosphatase 132 U/L (39-117); Anion Gap 15 (12-20); Aspartate Amino Transferase 21 U/L (5-31); Bilirubin Direct 0.9 mg/dL (0.0-0.5); Bilirubin Total 1.4 mg/dL (0.0-1.0); Blood Urea Nitrogen 9 mg/dL (9-16); Calcium 8.6 mg/dL (8.4-10.2); Carbon Dioxide 24 mmol/L (22-29); Chloride 108 mmol/L (96-108); Creatinine Clr Calc Pharmacy 62.9; Estimated Glomerular Filt Rate > 60; Glucose Random 106 mg/dL (60-115); Magnesium 1.6 mg/dL (1.6-2.6); Potassium 3.9 mmol/L (3.3-5.1); Sodium 143 mmol/L (135-145)
--- NOTE | 2021-11-02 14:00 | PHA.MEDREC ---
Pharmacy Consult ? Medication Reconciliation Pharmacy has completed the medication reconciliation. Tacrolimus dose recently changed from 1 mg bid to 0.5 mg bid and ursodiol changed from 300 mg to 500 mg bid. Pt takes 1-3 capsules of gabapentin at bedtime. Spoke with family member and patient in the ED>
[2021-11-02] MEDS: iohexoL 350 MG/ML 100 ML INFUS..BTL IV (14:56)
[2021-11-02] MEDS: Piperacillin Sodium/Tazobactam 4.5 GM in 0.9 % Sodium Chloride 100 ML IV (15:58)
[2021-11-02 16:00] VITALS: BP 139/78; PULSE 100; RESP 18; TEMP 37.6; O2SAT 96
--- NOTE | 2021-11-02 16:38 | P.HPHOSP_ITS ---
History of Present Illness Date of Service: 11/02/21 Chief Complaint: emesis, sob, hypoxia 66F pmh of PBC s/p liver transplant, breast ca 2000 s/p lumpectomy and XRT, htn, has been having diarrhea and weight loss, so had elective EGD/colonoscopy which showed, erosive gastritis, esophogitis, polyp and internal hemorrhoids. after procedure patient had billous vomitting and aspirated some contents, she became dyspneic and hypoxic. was sent to ED, CTA showed: Splenomegaly. Perisplenic ascites. Left mid and lower lung pneumonia. No evidence for PE. pateint had low grade fever, was 81% on room air, 96% on 2L. sob improved. Review of Systems Review of Systems: Constitutional:weight loss Eyes: denies blurry vision ENT: denies sore throat CVS: denies chest pain Respiratory: dyspnea GI: abdominal pain : denies dysuria MSK: denies neck pain Skin: denies rash Neuro: denies specific motor weakness Psych: denies suicidal ideation Endocrine: denies heat/cold intolerance Hematologic: denies easy bleeding Allergy: denies hives [facility] Medical History Breast cancer Primary biliary cholangitis Family History Mother CAD (coronary artery disease) Sister Ovarian cancer Surgical History H/O: hysterectomy Liver transplant recipient S/P hip replacement Social History Household Members: Spouse Household Members Other:: , children Alcohol intake: never Patient Tobacco Use Status: Former Tobacco user Use of substances other than those prescribed or required for medical reasons: No Advance Directives: No Current occupational status: retired Meds Allergies Allergy/AdvReac Type Severity Reaction Status Date / Time hydromorphone [From Dilaudid] Allergy Severe Hallucinati Verified 10/25/21 13:11 ons Sulfa (Sulfonamide AdvReac Severe Rash Verified 10/25/21 13:11 Antibiotics) Active Medications: Current Medications Escitalopram Oxalate (Escitalopram Oxalate 20 Mg Tablet) 20 mg PO DAILY [facility]MAN Gabapentin (Gabapentin 300 Mg Capsule) 300 mg PO BEDTIME [facility]MAN Lisinopril (Lisinopril 10 Mg Tablet) 10 mg PO DAILY SHERMAN; Protocol Pharmacy Consult (Consult Rx Perform Med Rec) 1 each MISCELLANE ONCE PRN PRN Reason: Consult order Tacrolimus (Tacrolimus 0.5 Mg Capsule) 0.5 mg PO BID [facility] Ursodiol (Ursodiol 300 Mg Capsule) 600 mg PO BID [facility] Home Medications Medication Instructions Recorded Confirmed Last Taken Type citalopram 40 mg tablet (Celexa) 40 mg PO DAILY 10/25/21 11/02/21 11/02/21 History 40 mg lisinopril 10 mg tablet 10 mg PO DAILY 10/25/21 11/02/21 11/02/21 History 10 mg acetaminophen 325 mg tablet 650 mg PO Q4H PRN Pain (Scale 11/02/21 11/02/21 11/02/21 History Score 1-3) calcium carbonate 300 mg (750 mg) 300 mg PO QID PRN Indigestion 11/02/21 11/02/21 11/02/21 History chewable tablet (Tums) cholecalciferol (vitamin D3) 25 25 mcg PO DAILY 11/02/21 11/02/21 11/02/21 History mcg (1,000 unit) tablet (Vitamin D3) gabapentin 300 mg capsule 1 - 3 cap PO BEDTIME 11/02/21 11/02/21 11/02/21 History tacrolimus 0.5 mg capsule, 1 cap PO BID 11/02/21 11/02/21 11/02/21 History immediate-release ursodiol 500 mg tablet 1 tab PO BID 11/02/21 11/02/21 11/02/21 History Physical Exam Vital Signs and Narrative: Vital Signs: Last Vital Signs Temp 99.6 F 11/02/21 16:00 Pulse 100 11/02/21 16:00 Resp 18 11/02/21 16:00 BP 139/78 11/02/21 16:00 Pulse Ox 96 11/02/21 16:00 O2 Del Method 11/02/21 16:00 O2 Flow Rate 2 11/02/21 16:00 BMI result Body Mass Index 30.4 General: frail, ill appearing HEENT: atraumatic Neck: normal to visual inspection CVS: S1, S2, RRR Resp: Crackles bilateral Chest: non tender GI: soft, non tender, distended : no CVA tenderness Skin: no rashes Extremities: no edema Neuro: Oriented X3, grossly intact Psych: cooperative Results Labs CBC and Chem 7: 11/02/21 11:14 11/02/21 11:14 Labs: Laboratory Results - last 24 hr 11/02/21 11/02/21 11/02/21 11:14 11:14 11:14 MCV 90.6 MCH 29.6 MCHC 32.7 RDW 14.2 Plt Count 93 L D MPV 10.0 Immature Gran % (Auto) 0.5 H Neut % (Auto) 78.6 H Lymph % (Auto) 11.8 L [place] % (Auto) 7.3 Eos % (Auto) 1.3 Baso % (Auto) 0.5 Lymph # (Auto) 0.5 L [place] # (Auto) 0.3 Eos # (Auto) 0.1 Baso # (Auto) 0.0 Abs Immat Gran (auto) 0.02 Absolute Neuts (auto) 3.1 Absolute Nucleated RBC 0.000 Nucleated RBC % (auto) 0.0 PT INR Anion Gap 15 Estim Creat Clear Calc 62.9 Estimated GFR > 60 Random Glucose 106 Lactic Acid Calcium 8.6 Magnesium 1.6 Total Bilirubin 1.4 H Direct Bilirubin 0.9 H AST 21 ALT 13 Alkaline Phosphatase 132 H B-Natriuretic Peptide 63 Total Protein 6.0 L Albumin 3.5 COVID-19 ([facility]) COVID-19 Clin Com 11/02/21 11/02/21 11/02/21 11:57 11:58 11:58 MCV MCH MCHC RDW Plt Count MPV Immature Gran % (Auto) Neut % (Auto) Lymph % (Auto) [place] % (Auto) Eos % (Auto) Baso % (Auto) Lymph # (Auto) [place] # (Auto) Eos # (Auto) Baso # (Auto) Abs Immat Gran (auto) Absolute Neuts (auto) Absolute Nucleated RBC Nucleated RBC % (auto) PT 14.6 H INR 1.3 H Anion Gap Estim Creat Clear Calc Estimated GFR Random Glucose Lactic Acid 1.4 Calcium Magnesium Total Bilirubin Direct Bilirubin AST ALT Alkaline Phosphatase B-Natriuretic Peptide Total Protein Albumin COVID-19 ([facility]INDSEY) Negative COVID-19 Clin Com See Note Imaging Radiologist's Impressions: Impressions Chest CTA 11/02/21 14:54 IMPRESSION: Splenomegaly. Perisplenic ascites. Left mid and lower lung pneumonia. No evidence for PE. VTE: negative Assessment and Plan (1) Aspiration pneumonitis: Status: Acute Plan 66F with pbc s/p transplant, htn, presented s/p egd/colonsocpy with hypoxia sepsis and acute hypoxic respiratory failure due to aspiration pneuonia unasyn, follow up cultures, wean o2 as tolerated thrombocytopenia due to splenomegaly from pbc not severe sepsis PBC s/p transplant continue tacrolimus, ursodiol htn lisinopril mood disorder celexa dvt prophylaxis - lovenox full code pateint with sepsis and hypoxia with risk factors of PBC, frailty, immunosupres darin due to transplant status, therefore, will likely require atleast 2 midnights in hospital Quality Stroke Does the patient have a stroke diagnosis?: No VTE Prior VTE?: No VTE Risk Level:: Medical - moderate - high VTE Device Contraindication: Treatment Not Indicated VTE Drug Contraindication: N/A - Med Ordered
[2021-11-02 18:05] LABS: Troponin-I High Sensitivity 5.4 ng/L (<3.5-17.0)
--- NOTE | 2021-11-02 19:06 | PC.NURSE ---
Assumed care of this pt. at 1900 - report from Danielle Martin RN
[2021-11-02 20:31] VITALS: BP 93/48; PULSE 79; RESP 20; TEMP 36.8; O2SAT 97
[2021-11-02] MEDS: UrsodioL 300 MG CAPSULE 600 MG PO (21:18)
[2021-11-02] MEDS: Gabapentin 300 MG CAPSULE PO (21:18)
[2021-11-02] MEDS: Ampicillin Sodium/Sulbactam Na 3 GM in 0.9 % Sodium Chloride 100 ML IV (21:20)
--- NOTE | 2021-11-02 21:24 | MHC.CM.PN ---
IMM 11/02. Met with admitted patient with bed assignment pending. A&Ox4. HCP at home. HCP/ Jose Luis Douglass ([phone]). Pt had liver transplant 2015. Moderna x2/boosted x2. Also received antibodies, that she gets every 6 months. No DME/services. D/C plan: home without services. to provide transportation. CM to follow for d/c needs.
[2021-11-02] MEDS: Tacrolimus 0.5 MG CAPSULE PO (22:14)
[2021-11-02 23:49] VITALS: BP 120/70; PULSE 75; RESP 17; TEMP 37.2; O2SAT 97; BMI 30.2
[2021-11-02] MEDS: 0.9 % Sodium Chloride Flush 3 ML SYRINGE IVFLUSH (23:49)
[2021-11-03] MEDS: Acetaminophen 325 MG TABLET 650 MG PO (00:03)
[2021-11-03 03:16] VITALS: BP 107/62; PULSE 69; RESP 16; TEMP 36.7; O2SAT 96
[2021-11-03 06:00] LABS: Hematocrit 30.9 % (37.0-47.0); Hemoglobin 9.9 g/dl (12.0-16.0); Mean Corpuscular Hemoglobin 29.2 pg (27.0-33.0); Mean Corpuscular Volume 91.2 fL (80.0-98.0); Mean Platelet Volume 10.6 fL (9.4-12.3); Red Blood Count 3.39 X10*6/uL (4.20-5.50); Red Cell Distribution Width 14.2 % (11.0-16.0); White Blood Count 4.6 X10*3/uL (4.8-10.8)
[2021-11-03 06:06] LABS: Platelet Count 83 X10*3/uL (160-400)
[2021-11-03] MEDS: Omeprazole 40 MG CAPSULE.DR PO (06:08)
[2021-11-03] MEDS: Ampicillin Sodium/Sulbactam Na 3 GM in 0.9 % Sodium Chloride 100 ML IV (06:08)
[2021-11-03 06:16] LABS: Anion Gap 14 (12-20); Blood Urea Nitrogen 9 mg/dL (9-16); Carbon Dioxide 25 mmol/L (22-29); Chloride 105 mmol/L (96-108); Creatinine Clr Calc Pharmacy 61.8; Estimated Glomerular Filt Rate > 60; Glucose Fasting 91 mg/dL (60-99); Potassium 3.7 mmol/L (3.3-5.1); Sodium 140 mmol/L (135-145)
[2021-11-03 07:09] VITALS: BP 107/57; PULSE 68; RESP 18; TEMP 36.5; O2SAT 100
[2021-11-03] MEDS: UrsodioL 300 MG CAPSULE 600 MG PO (07:32)
[2021-11-03] MEDS: lisinopriL 10 MG TABLET PO (07:32)
[2021-11-03] MEDS: Enoxaparin Sodium 40 MG/0.4 ML SYRINGE SUBCUT (07:32)
[2021-11-03] MEDS: Escitalopram Oxalate 20 MG TABLET PO (07:33)
[2021-11-03] MEDS: 0.9 % Sodium Chloride Flush 3 ML SYRINGE IVFLUSH (07:33)
--- NOTE | 2021-11-03 08:37 | PM.DS ---
DS: Providers Provider Date of Service: 11/03/21 Date of admission: 11/02/21 16:35 Primary care physician: Taylor Zapata MD DS: Diagnosis Discharge Diagnosis (1) Aspiration pneumonitis: Status: Acute DS: Summary Hospital Course Hospital Course: Chief Complaint: emesis, sob, hypoxia 66F pmh of PBC s/p liver transplant, breast ca 2001 s/p lumpectomy and XRT, htn, has been having diarrhea and weight loss, so had elective EGD/colonoscopy which showed, erosive gastritis, esophogitis, polyp and internal hemorrhoids. after procedure patient had billous vomitting and aspirated some contents, she became dyspneic and hypoxic. was sent to ED, CTA showed: Splenomegaly. Perisplenic ascites. Left mid and lower lung pneumonia. No evidence for PE. pateint had low grade fever, was 81% on room air, 96% on 2L. sob improved. hospital course: Patient was admitted for sepsis and acute hypoxic respiratory failure secondary to aspiration pneumonia versus pneumonitis. She was treated with Unasyn and was able to be weaned off oxygen. Her symptoms improved quicker than expected and she was able to be discharged the next day. She will be given 7 days of p.o. Augmentin. 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 For hypertension she was continued on lisinopril. For her mood disorder she will continue Celexa. For her new diagnosis of soft itis and gastritis she was started on Prilosec. For ongoing weight loss she will follow-up with Gastroenterology. Time Spent with Patient Time attestation: Total time spent providing and/or coordinating discharge services: Discharge coordination time: Greater than 30 minutes Quality: Safe Use of Opioids Does Pt have an Active Cancer Diagnosis on the Problem List?: No Quality: Stroke Does the patient have a stroke diagnosis?: No Physical Exam Vital Signs: Vital Signs: Last Vital Signs Temp 97.7 F 11/03/21 07:09 Pulse 68 11/03/21 07:09 Resp 18 11/03/21 07:09 BP 107/57 L 11/03/21 07:09 Pulse Ox 100 11/03/21 07:09 O2 Del Method 11/03/21 07:09 O2 Flow Rate 0.2 11/03/21 07:09 BMI result Body Mass Index 30.2 General: AO X 3, no acute distress Resp: CTA bilateral, no accessory muscles used CVS: S1,S2,RRR GI: soft, non tender, distended Neuro: motor grossly intact, alert Psych: appropriate affect, appropriate insight DS: Data Data Completed and Pending Labs on day of discharge: Laboratory Results - last 24 hr 11/02/21 11/02/21 11/02/21 11:14 11:14 11:14 WBC 4.0 L RBC 3.85 L Hgb 11.4 L Hct 34.9 L MCV 90.6 MCH 29.6 MCHC 32.7 RDW 14.2 Plt Count 93 L D MPV 10.0 Immature Gran % (Auto) 0.5 H Neut % (Auto) 78.6 H Lymph % (Auto) 11.8 L Hood % (Auto) 7.3 Eos % (Auto) 1.3 Baso % (Auto) 0.5 Lymph # (Auto) 0.5 L Hood # (Auto) 0.3 Eos # (Auto) 0.1 Baso # (Auto) 0.0 Abs Immat Gran (auto) 0.02 Absolute Neuts (auto) 3.1 Absolute Nucleated RBC 0.000 Nucleated RBC % (auto) 0.0 PT INR Sodium 143 Potassium 3.9 Chloride 108 Carbon Dioxide 24 Anion Gap 15 BUN 9 Creatinine 0.73 Estim Creat Clear Calc 62.9 Estimated GFR > 60 Random Glucose 106 Fasting Glucose Lactic Acid Calcium 8.6 Magnesium 1.6 Total Bilirubin 1.4 H Direct Bilirubin 0.9 H AST 21 ALT 13 Alkaline Phosphatase 132 H Troponin I High Sens < 3.5 B-Natriuretic Peptide 63 Total Protein 6.0 L Albumin 3.5 COVID-19 ([facility]) COVID-19 Clin Com 11/02/21 11/02/21 11/02/21 11:57 11:58 11:58 WBC RBC Hgb Hct MCV MCH MCHC RDW Plt Count MPV Immature Gran % (Auto) Neut % (Auto) Lymph % (Auto) Hood % (Auto) Eos % (Auto) Baso % (Auto) Lymph # (Auto) Hood # (Auto) Eos # (Auto) Baso # (Auto) Abs Immat Gran (auto) Absolute Neuts (auto) Absolute Nucleated RBC Nucleated RBC % (auto) PT 14.6 H INR 1.3 H Sodium Potassium Chloride Carbon Dioxide Anion Gap BUN Creatinine Estim Creat Clear Calc Estimated GFR Random Glucose Fasting Glucose Lactic Acid 1.4 Calcium Magnesium Total Bilirubin Direct Bilirubin AST ALT Alkaline Phosphatase Troponin I High Sens B-Natriuretic Peptide Total Protein Albumin COVID-19 ([facility]) Negative COVID-19 Clin Com See Note 11/02/21 11/03/21 11/03/21 15:49 05:08 05:08 WBC 4.6 L RBC 3.39 L Hgb 9.9 L Hct 30.9 L MCV 91.2 MCH 29.2 MCHC 32.0 RDW 14.2 Plt Count 83 L MPV 10.6 Immature Gran % (Auto) Neut % (Auto) Lymph % (Auto) Hood % (Auto) Eos % (Auto) Baso % (Auto) Lymph # (Auto) Hood # (Auto) Eos # (Auto) Baso # (Auto) Abs Immat Gran (auto) Absolute Neuts (auto) Absolute Nucleated RBC 0.000 Nucleated RBC % (auto) 0.0 PT INR Sodium 140 Potassium 3.7 Chloride 105 Carbon Dioxide 25 Anion Gap 14 BUN 9 Creatinine 0.74 Estim Creat Clear Calc 61.8 Estimated GFR > 60 Random Glucose Fasting Glucose 91 Lactic Acid Calcium 8.0 L D Magnesium Total Bilirubin Direct Bilirubin AST ALT Alkaline Phosphatase Troponin I High Sens 5.4 D B-Natriuretic Peptide Total Protein Albumin COVID-19 ([facility]) COVID-19 Clin Com Discharge Plan Discharge Patient Disposition: Home, Self-Care Discharge Diagnosis: acute hypoxic resp failure, aspiration Referrals: Taylor Zapata MD [Primary Care Provider] - 1 Week Discharge Medications: New omeprazole 40 mg Capsule,Delayed Release(Dr/Ec) 40 mg PO DAILY@0630 Qty: 30 0RF amoxicillin-pot clavulanate 875-125 mg tablet 1 tab PO Q12H Qty: 14 0RF Continued acetaminophen 325 mg Tablet 650 mg PO Q4H PRN (Reason: Pain (Scale Score 1-3)) calcium carbonate [Tums] 300 mg (750 mg) Tablet,Chewable 300 mg PO QID PRN (Reason: Indigestion) gabapentin 300 mg capsule 1 - 3 cap PO BEDTIME tacrolimus 0.5 mg capsule 1 cap PO BID ursodiol 500 mg tablet 1 tab PO BID cholecalciferol (vitamin D3) [Vitamin D3] 25 mcg (1,000 unit) Tablet 25 mcg PO DAILY lisinopril 10 mg tablet 10 mg PO DAILY citalopram [Celexa] 40 mg tablet 40 mg PO DAILY Citrucel 500 mg tablet 500 mg PO BID Qty: 60 5RF Discharge Orders: Discharge Order (Routine); Ordered 11/03/21 Ordered By: Salazar Lora Diet: Advance to usual diet Activity on Discharge: As tolerated Stand Alone Forms: Patient Portal Discharge page Care Plan Goals: work up weight loss, manage aspiration Health Concerns: weght loss, aspiratoion Plan of Treatment: augmentin for 1 week, start ppi, follow up with GI Assessment: see above
--- NOTE | 2021-11-03 09:22 | MHC.CM.PN ---
ARABELLA MESSAGE DELIVERED 11/03/21, PT MEDICALLY CLEARED FOR D/C HOME NO SERVICES, PT'S OR SON TO TRANSPORT
[2021-11-03] MEDS: Tacrolimus 0.5 MG CAPSULE PO (09:36)
== END 2021-11-03 10:33 | disposition home or self-care (01) | DRG 205 ==
LOC: HO.ED 15:28 → HO.EDOVER 16:49 → HO.S3 22:47
PROVIDERS: Physician Assistant; Admitting Provider Internal Medicine; Emergency Provider Emergency Medicine Emergency Medical Services; PCP Internal Medicine; Visit Provider Internal Medicine
DX: J95.89 Other postprocedural complications and disorders of respiratory system, not elsewhere classified (principal); A41.9 Sepsis, unspecified organism; J69.0 Pneumonitis due to inhalation of food and vomit; J96.01 Acute respiratory failure with hypoxia; D84.821 Immunodeficiency due to drugs; Z94.4 Liver transplant status; D69.6 Thrombocytopenia, unspecified; Z85.3 Personal history of malignant neoplasm of breast; I10 Essential (primary) hypertension; Z20.822 Contact with and (suspected) exposure to COVID-19; Z88.2 Allergy status to sulfonamides; Z88.5 Allergy status to narcotic agent; Z79.899 Other long term (current) drug therapy
CPT/HCPCS: 36415; 71045; 71275; 80048; 80076; 83605; 83735; 83880; 84484; 85025; 85027; 85610; 87040; 87635; 88305; 88342; 93005; 94640; 96365; 96366; 96375; 99285; J0295; J1650; J2270; J2405; J2543; Q9967

== ENCOUNTER 2021-11-15 11:17 | Outpatient (REF) | payer MEDICARE, OTHER, SELFPAY ==
--- NOTE | ~2021-11-15 | XR_ITS ---
EXAMINATION: XR CHEST CLINICAL INFORMATION: Pneumonitis due to inhalation of fluid in vomit COMPARISON: Chest radiograph and CT chest dated 11/02/2021 TECHNIQUE: 2 views of the chest were obtained. FINDINGS: Patchy consolidation seen at the time of the prior CT and in retrospect at the time of the prior chest radiograph has cleared. The heart and pulmonary vessels appear normal. At this time, there are no infiltrates, effusions or lung masses. XR/XR chest 2V IMPRESSION: No acute intrathoracic disease. Clearing of left lung infiltrates.
== END 2021-11-15 11:18 | disposition home or self-care (01) ==
LOC: HO.HMGCX 11:17
PROVIDERS: PCP Internal Medicine; Visit Provider Internal Medicine
DX: J69.0 Pneumonitis due to inhalation of food and vomit (principal)
CPT/HCPCS: 71046

== ENCOUNTER → 2021-11-22 12:52 | Outpatient (BNVA) | payer MEDICARE, OTHER, SELFPAY | PROVIDERS: PCP Internal Medicine; Visit Provider Physician Assistant | DX: D12.5 Benign neoplasm of sigmoid colon (principal); K29.60 Other gastritis without bleeding; K20.90 Esophagitis, unspecified without bleeding; K64.8 Other hemorrhoids; K52.9 Noninfective gastroenteritis and colitis, unspecified; Z94.4 Liver transplant status; Z98.890 Other specified postprocedural states | CPT/HCPCS: 99212 ==

== ENCOUNTER 2021-11-29 12:50 | Outpatient (REF) | payer MEDICARE, OTHER, SELFPAY ==
[2021-11-29 14:25] LABS: CDiff Gene PCR NEGATIVE (Negative)
[2021-12-07 21:02] LABS: Pancreatic Elastase-1 >500 mcg/g
== END 2021-11-29 12:51 | disposition home or self-care (01) ==
LOC: HO.LNP 12:50
PROVIDERS: Visit Provider Physician Assistant
DX: K52.9 Noninfective gastroenteritis and colitis, unspecified (principal); Z94.89 Other transplanted organ and tissue status
CPT/HCPCS: 82656; 87493

== ENCOUNTER 2022-01-03 08:49 | Outpatient (REF) | payer MEDICARE, OTHER, SELFPAY | END 2022-01-03 08:50 | disposition home or self-care (01) | LOC: HO.MRI 08:49 | PROVIDERS: Visit Provider Physician Assistant | DX: K52.9 Noninfective gastroenteritis and colitis, unspecified (principal); Z94.89 Other transplanted organ and tissue status | CPT/HCPCS: 72197; 74183; A9585 ==

== ENCOUNTER 2022-01-17 09:51 | Emergency (ER) | payer OTHER, SELFPAY ==
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
[2022-01-17 10:02] VITALS: BP 112/92; BP 135/88; PULSE 101; PULSE 107; RESP 18; TEMP 36.9; O2SAT 94; O2SAT 95; BMI 28.5
[2022-01-17 10:35] LABS: MANUAL DIFF FLAG NO
[2022-01-17 10:37] LABS: Basophils Percent Auto 0.7 % (0-2); Eosinophils Absolute Auto 0.2 X10*3/uL (0.0-0.4); Eosinophils Percent Auto 3.6 % (0-4); Hematocrit 36.4 % (37.0-47.0); Hemoglobin 11.6 g/dl (12.0-16.0); Imm Gran Abs Auto 0.01 X10*3/uL (0.00-0.03); Imm Gran Pct Auto 0.2 % (0.0-0.4); Lymphocytes Absolute Auto 0.6 X10*3/uL (1.2-4.9); Lymphocytes Percent Auto 13.5 % (20-40); Mean Corpuscular HGB Conc 31.9 g/dl (31.0-35.0); Mean Corpuscular Hemoglobin 28.7 pg (27.0-33.0); Mean Corpuscular Volume 90.1 fL (80.0-98.0); Mean Platelet Volume 10.3 fL (9.4-12.3); Monocytes Absolute Auto 0.5 X10*3/uL (0.1-1.2); Monocytes Percent Auto 10.9 % (2-11); Neutrophils Percent Auto 71.1 % (45-73); Platelet Count 134 X10*3/uL (160-400); Red Blood Count 4.04 X10*6/uL (4.20-5.50); Red Cell Distribution Width 13.9 % (11.0-16.0); White Blood Count 4.2 X10*3/uL (4.8-10.8)
[2022-01-17 11:04] LABS: Alanine Aminotransferase 23 U/L (0-31); Albumin Level 3.5 g/dL (3.5-5.0); Alkaline Phosphatase 193 U/L (39-117); Anion Gap 16 (12-20); Aspartate Amino Transferase 39 U/L (5-31); Bilirubin Total 1.6 mg/dL (0.0-1.0); Blood Urea Nitrogen 10 mg/dL (9-16); Calcium 8.6 mg/dL (8.4-10.2); Carbon Dioxide 21 mmol/L (22-29); Chloride 104 mmol/L (96-108); Creatinine Clr Calc Pharmacy 65.2; Estimated Glomerular Filt Rate > 60; Glucose Random 121 mg/dL (60-115); Potassium 4.4 mmol/L (3.3-5.1); Sodium 137 mmol/L (135-145); Total Protein 6.8 g/dL (6.5-8.0)
[2022-01-17 11:07] LABS: HCG Quantitative 5 mIU/mL
[2022-01-17] MEDS: iohexoL 350 MG/ML 100 ML INFUS..BTL IV (11:09)
[2022-01-17 11:28] LABS: INTERNATIONAL NORM RATIO 1.2 (0.9-1.1); Prothrombin Time 14.2 SEC (10.0-13.1)
[2022-01-17] MEDS: oxyCODONE HCl Immed Release 5 MG TABLET PO (11:58)
[2022-01-17 12:34] LABS: Troponin-I High Sensitivity < 3.5 ng/L (<3.5-17.0)
--- NOTE | 2022-01-17 15:30 | ECG_ITS ---
Test Reason : trauma Blood Pressure : / mmHG Vent. Rate : 093 BPM Atrial Rate : 093 BPM P-R Int : 142 ms QRS Dur : 070 ms QT Int : 382 ms P-R-T Axes : 053 -13 022 degrees QTc Int : 474 ms Normal sinus rhythm Low voltage QRS Nonspecific T wave abnormality Anterior leads Abnormal ECG When compared with ECG of 02-NOV-2021 10:31, Nonspecific T wave abnormality, improved in Inferior leads Nonspecific T wave abnormality no longer evident in Lateral leads Referred By: Sundar Tilley Electronically Signed By:VINI DIXON MD
== END 2022-01-17 13:08 | disposition home or self-care (01) ==
PROVIDERS: Physician Assistant; Emergency Provider Emergency Medicine Emergency Medical Services
DX: S13.4XXA Sprain of ligaments of cervical spine, initial encounter (principal); S06.0X0A Concussion without loss of consciousness, initial encounter; M54.50 Low back pain, unspecified; R51.9 Headache, unspecified; M54.2 Cervicalgia; M54.6 Pain in thoracic spine; R10.9 Unspecified abdominal pain; V43.52XA Car driver injured in collision with other type car in traffic accident, initial encounter; Y93.9 Activity, unspecified; Y92.410 Unspecified street and highway as the place of occurrence of the external cause; Y99.9 Unspecified external cause status; Z79.899 Other long term (current) drug therapy
CPT/HCPCS: 36415; 70450; 71260; 72125; 74177; 80053; 84484; 84702; 85025; 85610; 93005; 99284; Q9967

== ENCOUNTER 2022-01-18 12:11 | Emergency (ER) | payer OTHER, SELFPAY ==
[2022-01-18 12:24] VITALS: BP 133/85; PULSE 99; RESP 16; TEMP 37.1; O2SAT 98; BMI 28.5
== END 2022-01-18 16:57 | disposition left against medical advice (07) ==
PROVIDERS: Emergency Provider Emergency Medicine; PCP Internal Medicine
DX: T78.40XA Allergy, unspecified, initial encounter (principal); X58.XXXA Exposure to other specified factors, initial encounter
CPT/HCPCS: 99281

== ENCOUNTER 2022-01-20 14:32 | Outpatient (REF) | payer MEDICARE, OTHER, SELFPAY ==
--- NOTE | ~2022-01-20 | XR_ITS ---
EXAMINATION: XR ABDOMEN KUB CLINICAL INDICATION: Liver transplant status COMPARISON: CT 01/17/2022 TECHNIQUE: AP view of the abdomen. FINDINGS: Nonobstructive bowel gas pattern. Right upper quadrant cholecystectomy clips. No suspicious soft tissue calcifications. Bilateral total hip arthroplasties without evidence of complication. XR/XR KUB IMPRESSION: Nonobstructive bowel gas pattern.
== END 2022-01-20 14:33 | disposition home or self-care (01) ==
LOC: HO.XRAY 14:32
PROVIDERS: PCP Internal Medicine; Visit Provider Internal Medicine Gastroenterology
DX: D61.818 Other pancytopenia (principal); R18.8 Other ascites; Z94.4 Liver transplant status
CPT/HCPCS: 74018

== ENCOUNTER 2022-01-27 07:21 | Day surgery (SDC) | payer MEDICARE, OTHER, SELFPAY ==
--- NOTE | ~2022-01-27 | XR_ITS ---
EXAMINATION: XR ABDOMEN KUB CLINICAL INDICATION: Noninfected gastroenteritis, colitis. COMPARISON: KUB dated 01/20/2022, ultrasound paracentesis dated 01/19/2022. TECHNIQUE: AP view of the abdomen. FINDINGS: There is a nonobstructive bowel gas pattern. Several gas-filled loops of small bowel are seen without significant dilatation. Mild gas and stool are seen within the colon distally to the rectum. Bilateral hip hardware is intact. Surgical clips overlie the right upper quadrant. XR/XR KUB IMPRESSION: Nonobstructive bowel gas pattern. Mild colonic stool burden.
--- NOTE | ~2022-01-27 | US_ITS ---
EXAMINATION: US GUIDED PARACENTESIS ABDOMEN WITH IMAGE CLINICAL INFORMATION: Ascites. COMPARISON: Previous CT of the abdomen and pelvis 01/17/2022. TECHNIQUE: Procedure and risks and benefits including bleeding, infection and low blood pressure were discussed with the patient and informed consent was obtained. The right lower quadrant was prepped and draped in the usual sterile fashion. The skin and soft tissues were anesthetized with 1% lidocaine plain. Using ultrasound guidance and a 4-Armenian Yueh needle, access to the ascitic fluid was obtained. 1.4 liters of clear yellow fluid was removed. Diagnostic specimen was sent as requested by the ordering physician. FINDINGS: There is a moderate amount of ascites. US/US paracentesis abd w/image IMPRESSION: Ultrasound-guided paracentesis.
[2022-01-27 08:02] VITALS: BMI 28.7
[2022-01-27 08:09] LABS: MANUAL DIFF FLAG NO
[2022-01-27 08:20] LABS: INTERNATIONAL NORM RATIO 1.2 (0.9-1.1); Prothrombin Time 13.3 SEC (10.0-13.1)
[2022-01-27 08:22] LABS: Basophils Percent Auto 0.6 % (0-2); Eosinophils Absolute Auto 0.2 X10*3/uL (0.0-0.4); Eosinophils Percent Auto 4.5 % (0-4); Hematocrit 38.7 % (37.0-47.0); Hemoglobin 12.1 g/dl (12.0-16.0); Imm Gran Abs Auto 0.01 X10*3/uL (0.00-0.03); Imm Gran Pct Auto 0.2 % (0.0-0.4); Lymphocytes Absolute Auto 0.9 X10*3/uL (1.2-4.9); Lymphocytes Percent Auto 17.3 % (20-40); Mean Corpuscular HGB Conc 31.3 g/dl (31.0-35.0); Mean Corpuscular Hemoglobin 28.5 pg (27.0-33.0); Mean Corpuscular Volume 91.1 fL (80.0-98.0); Mean Platelet Volume 9.7 fL (9.4-12.3); Monocytes Absolute Auto 0.7 X10*3/uL (0.1-1.2); Monocytes Percent Auto 14.5 % (2-11); Neutrophils Absolute Auto 3.1 x10*3/uL (2.0-8.3); Neutrophils Percent Auto 62.9 % (45-73); Platelet Count 119 X10*3/uL (160-400); Red Blood Count 4.25 X10*6/uL (4.20-5.50); Red Cell Distribution Width 14.6 % (11.0-16.0); White Blood Count 4.9 X10*3/uL (4.8-10.8)
[2022-01-27 08:23] LABS: Partial Thromboplastin Time 33.1 SEC (26.0-36.4)
--- NOTE | 2022-01-27 10:00 | HO.RADPN ---
RADIOLOGY Narrative Narrative: RLQ paracentesis performed using Yueh needle. L clear yellow fluid removed. Diagnostic specimen sent.
[2022-01-27 10:10] VITALS: BP 113/65; PULSE 97; RESP 16; TEMP 36.9; O2SAT 98
[2022-01-27 10:25] VITALS: BP 116/77; PULSE 90; RESP 16; O2SAT 99
[2022-01-27 10:39] VITALS: BP 118/75; PULSE 92; RESP 16; O2SAT 98
[2022-01-27] MEDS: Lidocaine HCl 1 % MPF 5 ML VIAL 10 ML SUBCUT (11:04)
[2022-01-27 11:05] VITALS: BP 126/76; PULSE 91; RESP 16; O2SAT 98
[2022-01-27 11:07] VITALS: TEMP 36.9
[2022-01-27 11:17] LABS: MN% 78.6 %; PMN% 21.4 %; WBC Peritoneal Fluid 0.908 X10*3/uL
[2022-01-27 11:20] LABS: RBC Peritoneal Fluid < 0.002 X10*6/uL
[2022-01-27 11:38] LABS: BF Shift QC OK YES; Lymphocyte Peritoneal Fl 26 %; Monocytes Peritoneal Fl 5 %; Neutrophils Peritoneal Fluid 33 %; Other Peritioneal Fl 36 %
[2022-01-27 20:10] LABS: pH Peritoneal Fluid 7.41
[2022-01-27 20:13] LABS: Albumin Peritoneal Fluid 1.7 GM/DL; Total Protein Peritoneal Fluid 2.7 GM/DL
== END 2022-01-27 11:10 | disposition home or self-care (01) ==
PROVIDERS: Internal Medicine Gastroenterology; PCP Internal Medicine; Visit Provider Radiology Diagnostic Radiology
DX: R18.8 Other ascites (principal); D61.818 Other pancytopenia; K52.9 Noninfective gastroenteritis and colitis, unspecified; I10 Essential (primary) hypertension; Z94.4 Liver transplant status; Z85.3 Personal history of malignant neoplasm of breast; Z79.899 Other long term (current) drug therapy; Z88.2 Allergy status to sulfonamides; Z88.8 Allergy status to other drugs, medicaments and biological substances
CPT/HCPCS: 36415; 49083; 74018; 82042; 83986; 84157; 85025; 85610; 85730; 87070; 87073; 87205; 88112; 89051

== ENCOUNTER 2022-01-30 11:10 | Outpatient (REF) | payer MEDICARE, OTHER, SELFPAY ==
[2022-01-30 11:28] LABS: MANUAL DIFF FLAG NO
[2022-01-30 12:08] LABS: Basophils Percent Auto 0.6 % (0-2); Eosinophils Absolute Auto 0.2 X10*3/uL (0.0-0.4); Eosinophils Percent Auto 3.4 % (0-4); Hematocrit 38.8 % (37.0-47.0); Hemoglobin 12.3 g/dl (12.0-16.0); Imm Gran Abs Auto 0.01 X10*3/uL (0.00-0.03); Imm Gran Pct Auto 0.2 % (0.0-0.4); Lymphocytes Absolute Auto 0.8 X10*3/uL (1.2-4.9); Mean Corpuscular HGB Conc 31.7 g/dl (31.0-35.0); Mean Corpuscular Hemoglobin 28.7 pg (27.0-33.0); Mean Corpuscular Volume 90.4 fL (80.0-98.0); Mean Platelet Volume 9.9 fL (9.4-12.3); Monocytes Absolute Auto 0.5 X10*3/uL (0.1-1.2); Monocytes Percent Auto 11.5 % (2-11); Neutrophils Absolute Auto 3.2 x10*3/uL (2.0-8.3); Neutrophils Percent Auto 68.3 % (45-73); Platelet Count 121 X10*3/uL (160-400); Red Blood Count 4.29 X10*6/uL (4.20-5.50); Red Cell Distribution Width 14.6 % (11.0-16.0); White Blood Count 4.7 X10*3/uL (4.8-10.8)
[2022-01-30 12:38] LABS: Alanine Aminotransferase 22 U/L (0-31); Albumin Level 3.7 g/dL (3.5-5.0); Alkaline Phosphatase 201 U/L (39-117); Anion Gap 15 (12-20); Aspartate Amino Transferase 33 U/L (5-31); Bilirubin Total 1.8 mg/dL (0.0-1.0); Blood Urea Nitrogen 13 mg/dL (9-16); C Reactive Protein 4.38 mg/dL (< or = 0.50); Calcium 8.8 mg/dL (8.4-10.2); Carbon Dioxide 22 mmol/L (22-29); Chloride 107 mmol/L (96-108); Estimated Glomerular Filt Rate > 60; Glucose Random 109 mg/dL (60-115); Sodium 140 mmol/L (135-145); Total Protein 6.7 g/dL (6.5-8.0)
[2022-02-01 03:27] LABS: Tacrolimus Prograf 4.2 mcg/L
== END 2022-01-30 11:11 | disposition home or self-care (01) ==
LOC: HO.LAB 11:10
PROVIDERS: PCP Internal Medicine; Visit Provider Internal Medicine Gastroenterology
DX: D61.818 Other pancytopenia (principal); K74.3 Primary biliary cirrhosis; R18.8 Other ascites; K75.81 Nonalcoholic steatohepatitis (NASH); Z94.4 Liver transplant status
CPT/HCPCS: 36415; 80053; 80197; 85025; 86140

== ENCOUNTER 2022-02-03 18:51 | Inpatient (IN) | payer MEDICARE, OTHER, SELFPAY ==
--- NOTE | ~2022-02-03 | XR_ITS ---
EXAMINATION: XR CHEST CLINICAL INFORMATION: Shortness of breath COMPARISON: Chest x-ray 11/15/2021 TECHNIQUE: Frontal portable view of the chest was obtained. 8:29 PM FINDINGS: Lungs are clear. No pulmonary vascular congestion. There is no pleural effusion. The heart size is normal. The cardiac and mediastinal contours are normal. There are calcifications of the thoracic aorta. No acute osseous abnormality. Surgical clips right upper quadrant of abdomen. XR/XR chest 1V IMPRESSION: Unremarkable examination.
--- NOTE | ~2022-02-03 | US_ITS ---
EXAMINATION: ULTRASOUND-GUIDED PARACENTESIS WITH IMAGING CLINICAL INFORMATION: SBP. Recheck cell count and cultures. COMPARISON: Previous CT of the abdomen and pelvis 02/03/2022 TECHNIQUE: Procedure and risks and benefits including bleeding and infection were discussed with the patient and informed consent was obtained. The right lower quadrant was prepped and draped in the usual sterile fashion. The skin and soft tissues were anesthetized with 1% lidocaine plain. Using ultrasound guidance and a 4 Romanian Yueh needle, access to the ascitic fluid was obtained. 60 mL of clear yellow serous fluid was removed. Specimen was sent as requested by the ordering physician. FINDINGS: There is a small amount of ascites in the right lower quadrant. US/US paracentesis abd w/image IMPRESSION: Ultrasound-guided paracentesis.
--- NOTE | ~2022-02-03 | CT_ITS ---
EXAMINATION: CT ENTEROGRAPHY ABDOMEN AND PELVIS WITH CONTRAST CLINICAL INFORMATION: History of abdominal pain. CT enterography examination ordered for ileitis. COMPARISON: 01/17/2022 and 02/03/2022 TECHNIQUE: Study performed with oral VoLumen (1350 mL) and water to distend the gastrointestinal tract. The patient was injected with 85 mL Omnipaque 350 intravenous contrast which was administered without adverse effect. Coronal and sagittal reformatted images were obtained at the technologist's workstation. This CT examination was performed using dose optimization techniques as appropriate, variously including the following: *Automated exposure control *Adjustment of mA and/or kV according to patient size (this includes techniques or standardized protocols for targeted exams where dose is matched to indication/reason for exam; i.e. extremities or head) *Use of iterative reconstruction technique DLP: 682 mGy-cm FINDINGS: LUNG BASES: [id number] right pleural effusion has increased in size compared to 02/03/2022 and is similar compared to chest radiograph from 02/05/2022. The heart size is normal. No pericardial effusion. There is atherosclerotic calcification of the left anterior descending coronary artery. LIVER: The cirrhotic liver has nodular surface contour. No acute findings within the liver. No liver mass or abscess. GALLBLADDER AND BILIARY TREE: Gallbladder is surgically absent. Common bile duct is 0.7 cm transverse diameter. The mild dilatation of central intrahepatic ducts is unchanged compared to 01/17/2022. PANCREAS: Normal. No edema, pancreatic ductal dilatation or mass. SPLEEN: Splenomegaly is present. The spleen measures up to 14.5 cm AP and 17.8 cm craniocaudal. ADRENAL GLANDS: Normal. KIDNEYS AND URETERS: The kidneys have normal size and cortical thickness. No perinephric edema or fluid collection. No urolithiasis or hydroureteronephrosis. BLADDER: Normal. No calculi or wall thickening. BOWEL AND PERITONEUM: Stomach is mildly distended with ingested fluid. There appears to be contraction of the pylorus on the images acquired through the upper abdomen. No pathologic sized bowel loops. The duodenum, jejunum and ileum are unremarkable. No evidence of mucosal hyperenhancement or mural stratification of the bowel campbell. There are no imaging findings of ileitis. There is fluid in the lumen of the nondilated colon and rectum. No colonic or rectal wall thickening. Small volume of free fluid is present in the abdomen and pelvis. No hemoperitoneum. ABDOMINAL WALL: There is edema of subcutaneous tissues of the abdominal wall, flanks, back and left thigh. VASCULATURE: Mild atherosclerosis of the abdominal aorta without aneurysm. Inferior vena cava is normal. The main portal vein measures up to 1.7 cm diameter and splenic vein is prominent; this could be a manifestation of pulmonary venous hypertension. No venous thrombosis. Mildly dilated venous collaterals are present within the abdomen. LYMPH NODES: No pathologic sized lymph nodes in the abdomen or pelvis. No inguinal lymphadenopathy. PELVIC VISCERA: Hysterectomy. No adnexal mass. SKELETAL: Streak artifact is produced by components of bilateral total hip arthroplasties. No acute findings in the degenerated spine. Moderate facet arthropathy of L4-L5 and 0.3 cm of grade 1 anterolisthesis of L4 on L5. Degenerative disc disease at L5-S1. CT/CT enterography IMPRESSION: * No evidence of enteritis or colitis. * Cirrhosis, splenomegaly and small volume ascites. * The right pleural effusion has increased in size compared to 02/03/2022. Anasarca with increased edema of subcutaneous tissues of the abdominal wall, flanks and back compared to 02/03/2022.
--- NOTE | ~2022-02-03 | CT_ITS ---
EXAMINATION: CT ABDOMEN AND PELVIS WITHOUT CONTRAST CLINICAL INFORMATION: Diffuse abdominal pain COMPARISON: CT abdomen pelvis 01/17/2022 TECHNIQUE: Multidetector volumetric imaging was performed from the superior aspect of the liver through the pubic symphysis. Sagittal and coronal reformatted images were obtained on the technologist's workstation. This CT examination was performed using dose optimization techniques as appropriate, variously including the following: *Automated exposure control *Adjustment of mA and/or kV according to patient size (this includes techniques or standardized protocols for targeted exams where dose is matched to indication/reason for exam; i.e. extremities or head) *Use of iterative reconstruction technique DLP: 637 mGy-cm FINDINGS: LUNG BASES: Persistent small right pleural effusion with mild minimal right basilar atelectasis. Coronary calcifications noted. LIVER, GALLBLADDER, AND BILIARY TREE: Normal hepatic attenuation. Cirrhotic liver morphology. No liver lesion identified. Status post cholecystectomy. Mild prominence of central intrahepatic bile ducts. No extrahepatic biliary ductal dilation. PANCREAS: Unremarkable. SPLEEN: Enlarged measuring 16.7 cm in craniocaudal extent, unchanged. No splenic lesion ADRENAL GLANDS: Unremarkable. KIDNEYS AND URETERS: The kidneys are normal in size, shape, and attenuation. No hydronephrosis, hydroureter, or calculi seen. No perinephric stranding. BLADDER: Incompletely distended and grossly unremarkable allowing for streak artifact from the patient's total hip arthroplasties. GASTROINTESTINAL TRACT: No dilated bowel loops. No bowel wall thickening. Appendix is not discretely visualized. No intra-abdominal free air. Moderate volume ascites, not significantly changed. ABDOMINAL WALL: No significant hernia is appreciated. LYMPH NODES: No lymphadenopathy. VASCULAR: Normal caliber abdominal aorta. Mild vascular calcifications. Small collateral veins in the ventral abdominal wall are seen on prior contrast enhanced study. PELVIC VISCERA: Uterus not seen, presumably post hysterectomy. OSSEOUS STRUCTURES: No acute fracture or suspicious osseous lesion. Multilevel degenerative disc disease most advanced at L5-S1. Status post bilateral total hip arthroplasties. CT/CT abdomen pelvis wo IV con IMPRESSION: 1. No acute intra-abdominal process identified. 2. Cirrhosis and evidence of portal hypertension with splenomegaly and moderate volume ascites, unchanged. 3. Persistent small right pleural effusion.
--- NOTE | ~2022-02-03 | XR_ITS ---
EXAMINATION: XR CHEST CLINICAL INFORMATION: Dyspnea. COMPARISON: None TECHNIQUE: 2 views of the chest were obtained. FINDINGS: The lungs are well-expanded and clear. The heart size and pulmonary vascularity is normal. There is elevated right hemidiaphragm. No gross bony abnormality seen. XR/XR chest 2V IMPRESSION: Unremarkable chest exam.
--- NOTE | 2022-02-03 09:13 | ECG_ITS ---
Test Reason : SEPSIS Blood Pressure : / mmHG Vent. Rate : 090 BPM Atrial Rate : 090 BPM P-R Int : 142 ms QRS Dur : 068 ms QT Int : 384 ms P-R-T Axes : 068 -03 027 degrees QTc Int : 469 ms Normal sinus rhythm Low voltage QRS Borderline ECG When compared with ECG of 17-JAN-2022 11:13, No significant change was found Referred By: Kristina Chin Electronically Signed By:VINI DIXON MD
[2022-02-03 19:43] VITALS: BP 149/84; PULSE 94; RESP 18; TEMP 37.1; O2SAT 94; BMI 28.6
--- NOTE | 2022-02-03 20:58 | ED.GENADULT ---
HPI - General Adult General Chief complaint: General Medical Stated complaint: sent down by for Iv and antibiotics Time Seen by Provider: 02/03/22 19:44 Source: patient and family (Daughter) Mode of arrival: ambulatory History of Present Illness HPI narrative: 66-year-old female with history PBC, underwent liver transplant, and has now had recurrence and is presenting for suspected SBP that is not responding to oral antibiotics and states she is having diffuse abdominal discomfort as well as chills and shortness of breath. Related Data Home Medications Medication Instructions Recorded Confirmed acetaminophen 325 mg tablet 650 mg PO Q4H PRN Pain (Scale 11/02/21 02/03/22 Score 1-3) calcium carbonate 300 mg (750 mg) 300 mg PO QID PRN Indigestion 11/02/21 02/03/22 chewable tablet (Tums) cholecalciferol (vitamin D3) 25 25 mcg PO DAILY 11/02/21 02/03/22 mcg (1,000 unit) tablet (Vitamin D3) tacrolimus 0.5 mg capsule, 1 cap PO BID 11/02/21 02/03/22 immediate-release ursodiol 500 mg tablet 1 tab PO BID 11/02/21 02/03/22 Previous Rx's Medication Instructions Recorded pantoprazole 40 mg tablet,delayed 40 mg PO DAILY #90 tabs 11/04/21 release gabapentin 300 mg capsule 300 mg PO BEDTIME #90 caps 11/09/21 rifaximin 550 mg tablet 550 mg PO TID 14 days #42 tabs 11/24/21 colesevelam 625 mg tablet 1,250 mg PO BID diarrhea #360 tabs 12/06/21 citalopram 40 mg tablet (Celexa) 40 mg PO DAILY #90 tabs 12/29/21 lidocaine 5 % topical patch 1 patch topical DAILY #30 ea 01/17/22 (Lidoderm) Allergies Allergy/AdvReac Type Severity Reaction Status Date / Time hydromorphone [From Dilaudid] Allergy Severe Hallucinati Verified 02/03/22 11:15 ons losartan Allergy Intermediate Facial Verified 02/03/22 11:55 Swelling Sulfa (Sulfonamide AdvReac Severe Rash Verified 02/03/22 11:15 Antibiotics) Review of Systems Review of Systems: Pertinent positives and negatives as stated in HPI 10 point review of systems is otherwise negative. [facility]LY [facility] Past Medical History Source: nursing notes reviewed Medical History Breast cancer Primary biliary cholangitis Surgical History H/O: hysterectomy Hx of colonoscopy Hx of esophagogastroduodenoscopy Liver transplant recipient S/P hip replacement Family History Family History Mother CAD (coronary artery disease) Sister Ovarian cancer Mental health disorder Social History Social History Household Members: Spouse Household Members Other:: , children Housing: House Do you presently have visiting nurse or other home services: No Alcohol intake: never Patient Tobacco Use Status: Never used Tobacco e-Cigarette/Vaping Use: Never Used Advance Directives: No Advance Directives Information Provided: No service: No Current occupational status: retired Cognitive needs: No Hearing needs: No Vision needs: Yes Physical Exam ED Vital Signs: Vital Signs - 24 hr 02/03/22 19:43 Temperature 98.8 F Pulse Rate 94 Respiratory Rate 18 Blood Pressure 149/84 H Pulse Oximetry 94 Oxygen Delivery Method Room Air BMI result Body Mass Index 28.6 VITAL SIGNS: Reviewed. GENERAL: Well developed, well nourished, in no acute distress. HEAD: Normocephalic/atraumatic EYES: PERRLA, EOMI EARS: Ext canals without abnormality OROPHARYNX: no oral lesions noted, posterior pharynx clear LUNGS: Normal breath sounds. No adventitious sounds or accessory muscle use. SpO2<94> CARDIOVASCULAR: Tachycardic rate and rhythm without noted murmurs, no JVD or lower extremity edema. ABDOMEN: Soft, diffusely tender without rebound, non-distended with bowel sounds, +fluid wave, Asterixis+ MUSCULOSKELETAL: No tenderness, deformities, or effusions noted on gross inspection. EXTREMITIES: No cyanosis, clubbing or edema. SKIN: Inspection of the skin reveals no rashes, no petechiae/purpura NEUROLOGIC: Alert and oriented x 3. Strength and sensation to light touch were grossly intact x 4. Course Course Course Narrative: 66-year-old female with history and clinical presentation consistent SBP and failed course of p.o. antibiotics in arrives with persistent ascites and abdominal discomfort. Started on IV antibiotics and tomorrow will undergo paracentesis for evaluation of possible fungal or TB etiology given immunocompromised state. She is also noted to be anemic without evidence of hematemesis/melena/hematochezia and this was discussed with Dr. Galloway. The case in its entirety has been discussed with Dr. Henderson son who recommends see above paracentesis as well as 1.5 grams/kilos 0 of albumin (to be divided into 3 doses throughout the day), and IV antibiotics. Patient remains hemodynamically stable, CT imaging is without acute findings other than unchanged moderate ascites. I discussed the case with the inpatient hospitalist who accepts admission. Medical Decision Making Lab Data Result diagrams: 02/03/22 20:48 02/03/22 20:48 Labs: Lab Results 02/03/22 02/03/22 02/03/22 Range/Units 20:48 20:48 20:48 WBC 3.9 L (4.8-10.8) X10*3/uL RBC 3.65 L (4.20-5.50) X10*6/uL Hgb 10.5 L (12.0-16.0) g/dl Hct 32.8 L (37.0-47.0) % MCV 89.9 (80.0-98.0) fL MCH 28.8 (27.0-33.0) pg MCHC 32.0 (31.0-35.0) g/dl RDW 14.6 (11.0-16.0) % Plt Count 96 L (160-400) X10*3/uL MPV 9.9 (9.4-12.3) fL Immature Gran % (Auto) 0.3 (0.0-0.4) % Neut % (Auto) 64.4 (45-73) % Lymph % (Auto) 17.8 L (20-40) % [place] % (Auto) 13.9 H (2-11) % Eos % (Auto) 3.1 (0-4) % Baso % (Auto) 0.5 (0-2) % Lymph # (Auto) 0.7 L (1.2-4.9) X10*3/uL [place] # (Auto) 0.5 (0.1-1.2) X10*3/uL Eos # (Auto) 0.1 (0.0-0.4) X10*3/uL Baso # (Auto) 0.0 (0.0-0.2) X10*3/uL Abs Immat Gran (auto) 0.01 (0.00-0.03) X10*3/uL Absolute Neuts (auto) 2.5 (2.0-8.3) x10*3/uL Absolute Nucleated RBC 0.000 (0.0-0.012) X10*3/uL Nucleated RBC % (auto) 0.0 (0.0-0.2) /100WBC Smear Tech's Comments VERIFIED PT (10.0-13.1) SEC INR (0.9-1.1) APTT 32.8 (26.0-36.4) SEC Sodium (135-145) mmol/L Potassium (3.3-5.1) mmol/L Chloride (96-108) mmol/L Carbon Dioxide (22-29) mmol/L Anion Gap (12-20) BUN (9-16) mg/dL Creatinine (0.5-1.4) mg/dL Estim Creat Clear Calc Estimated GFR Random Glucose (60-115) mg/dL Lactic Acid (0.5-2.0) mmol/L Calcium (8.4-10.2) mg/dL Total Bilirubin (0.0-1.0) mg/dL AST (5-31) U/L ALT (0-31) U/L Alkaline Phosphatase (39-117) U/L Ammonia 23 (13-55) umol/L C-Reactive Protein (< or = 0.50) mg/dL B-Natriuretic Peptide (<100) pg/mL Total Protein (6.5-8.0) g/dL Albumin (3.5-5.0) g/dL Influenza Type A (PCR) (Negative) Influenza Type B (PCR) (Negative) RSV RNA Qual (PCR) (Negative) SARS-CoV-2 RNA (RT-PCR) (Negative) 02/03/22 02/03/22 02/03/22 Range/Units 20:48 20:48 20:48 WBC (4.8-10.8) X10*3/uL RBC (4.20-5.50) X10*6/uL Hgb (12.0-16.0) g/dl Hct (37.0-47.0) % MCV (80.0-98.0) fL MCH (27.0-33.0) pg MCHC (31.0-35.0) g/dl RDW (11.0-16.0) % Plt Count (160-400) X10*3/uL MPV (9.4-12.3) fL Immature Gran % (Auto) (0.0-0.4) % Neut % (Auto) (45-73) % Lymph % (Auto) (20-40) % [place] % (Auto) (2-11) % Eos % (Auto) (0-4) % Baso % (Auto) (0-2) % Lymph # (Auto) (1.2-4.9) X10*3/uL [place] # (Auto) (0.1-1.2) X10*3/uL Eos # (Auto) (0.0-0.4) X10*3/uL Baso # (Auto) (0.0-0.2) X10*3/uL Abs Immat Gran (auto) (0.00-0.03) X10*3/uL Absolute Neuts (auto) (2.0-8.3) x10*3/uL Absolute Nucleated RBC (0.0-0.012) X10*3/uL Nucleated RBC % (auto) (0.0-0.2) /100WBC Smear Tech's Comments PT 14.3 H (10.0-13.1) SEC INR 1.2 H (0.9-1.1) APTT (26.0-36.4) SEC Sodium 140 (135-145) mmol/L Potassium 4.0 (3.3-5.1) mmol/L Chloride 106 (96-108) mmol/L Carbon Dioxide 23 (22-29) mmol/L Anion Gap 15 (12-20) BUN 15 (9-16) mg/dL Creatinine 0.82 (0.5-1.4) mg/dL Estim Creat Clear Calc 54.2 Estimated GFR > 60 Random Glucose 100 (60-115) mg/dL Lactic Acid 0.9 (0.5-2.0) mmol/L Calcium 8.7 (8.4-10.2) mg/dL Total Bilirubin 1.4 H (0.0-1.0) mg/dL AST 40 H (5-31) U/L ALT 27 (0-31) U/L Alkaline Phosphatase 187 H (39-117) U/L Ammonia (13-55) umol/L C-Reactive Protein 5.58 H (< or = 0.50) mg/dL B-Natriuretic Peptide (<100) pg/mL Total Protein 6.2 L (6.5-8.0) g/dL Albumin 3.4 L (3.5-5.0) g/dL Influenza Type A (PCR) (Negative) Influenza Type B (PCR) (Negative) RSV RNA Qual (PCR) (Negative) SARS-CoV-2 RNA (RT-PCR) (Negative) 02/03/22 02/03/22 Range/Units 20:48 20:48 WBC (4.8-10.8) X10*3/uL RBC (4.20-5.50) X10*6/uL Hgb (12.0-16.0) g/dl Hct (37.0-47.0) % MCV (80.0-98.0) fL MCH (27.0-33.0) pg MCHC (31.0-35.0) g/dl RDW (11.0-16.0) % Plt Count (160-400) X10*3/uL MPV (9.4-12.3) fL Immature Gran % (Auto) (0.0-0.4) % Neut % (Auto) (45-73) % Lymph % (Auto) (20-40) % [place] % (Auto) (2-11) % Eos % (Auto) (0-4) % Baso % (Auto) (0-2) % Lymph # (Auto) (1.2-4.9) X10*3/uL [place] # (Auto) (0.1-1.2) X10*3/uL Eos # (Auto) (0.0-0.4) X10*3/uL Baso # (Auto) (0.0-0.2) X10*3/uL Abs Immat Gran (auto) (0.00-0.03) X10*3/uL Absolute Neuts (auto) (2.0-8.3) x10*3/uL Absolute Nucleated RBC (0.0-0.012) X10*3/uL Nucleated RBC % (auto) (0.0-0.2) /100WBC Smear Tech's Comments PT (10.0-13.1) SEC INR (0.9-1.1) APTT (26.0-36.4) SEC Sodium (135-145) mmol/L Potassium (3.3-5.1) mmol/L Chloride (96-108) mmol/L Carbon Dioxide (22-29) mmol/L Anion Gap (12-20) BUN (9-16) mg/dL Creatinine (0.5-1.4) mg/dL Estim Creat Clear Calc Estimated GFR Random Glucose (60-115) mg/dL Lactic Acid (0.5-2.0) mmol/L Calcium (8.4-10.2) mg/dL Total Bilirubin (0.0-1.0) mg/dL AST (5-31) U/L ALT (0-31) U/L Alkaline Phosphatase (39-117) U/L Ammonia (13-55) umol/L C-Reactive Protein (< or = 0.50) mg/dL B-Natriuretic Peptide 18 (<100) pg/mL Total Protein (6.5-8.0) g/dL Albumin (3.5-5.0) g/dL Influenza Type A (PCR) NEGATIVE (Negative) Influenza Type B (PCR) NEGATIVE (Negative) RSV RNA Qual (PCR) NEGATIVE (Negative) SARS-CoV-2 RNA (RT-PCR) NEGATIVE (Negative) ECG Data Interpretation: NSR, HR-90, no STEMI, NV/QRS/QTC are within normal limits. Critical Care Time Critical Care Time Critical Care Time: Yes Total Critical Care Time: 30 Attestation: I personally attest to this time spent taking care of the patient. Discharge Plan Discharge Clinical Impression: Sepsis, Liver transplant recipient, Tremor, Ascites, CHF (congestive heart failure), SBP (spontaneous bacterial peritonitis), Anemia Patient Disposition: Admitted As Inpatient
[2022-02-03 20:59] LABS: Basophils Percent Auto 0.5 % (0-2); Mean Platelet Volume 9.9 fL (9.4-12.3); PLT CLUMP 1; Red Cell Distribution Width 14.6 % (11.0-16.0); SCAN SMEAR FLAG 1
[2022-02-03 21:01] LABS: Eosinophils Absolute Auto 0.1 X10*3/uL (0.0-0.4); Eosinophils Percent Auto 3.1 % (0-4); Hematocrit 32.8 % (37.0-47.0); Hemoglobin 10.5 g/dl (12.0-16.0); Imm Gran Abs Auto 0.01 X10*3/uL (0.00-0.03); Imm Gran Pct Auto 0.3 % (0.0-0.4); Lymphocytes Absolute Auto 0.7 X10*3/uL (1.2-4.9); Lymphocytes Percent Auto 17.8 % (20-40); MANUAL DIFF FLAG SCAN; Mean Corpuscular Hemoglobin 28.8 pg (27.0-33.0); Mean Corpuscular Volume 89.9 fL (80.0-98.0); Monocytes Absolute Auto 0.5 X10*3/uL (0.1-1.2); Monocytes Percent Auto 13.9 % (2-11); Neutrophils Absolute Auto 2.5 x10*3/uL (2.0-8.3); Neutrophils Percent Auto 64.4 % (45-73); Red Blood Count 3.65 X10*6/uL (4.20-5.50)
[2022-02-03 21:05] LABS: INTERNATIONAL NORM RATIO 1.2 (0.9-1.1); Prothrombin Time 14.3 SEC (10.0-13.1)
[2022-02-03 21:08] LABS: Ammonia 23 umol/L (13-55); Partial Thromboplastin Time 32.8 SEC (26.0-36.4)
[2022-02-03 21:10] LABS: White Blood Count 3.9 X10*3/uL (4.8-10.8)
[2022-02-03 21:11] LABS: Platelet Count 96 X10*3/uL (160-400)
[2022-02-03 21:12] LABS: Lactic Acid 0.9 mmol/L (0.5-2.0)
[2022-02-03 21:14] LABS: SLIDE REVIEW VERIFIED
[2022-02-03 21:16] LABS: Alanine Aminotransferase 27 U/L (0-31); Albumin Level 3.4 g/dL (3.5-5.0); Alkaline Phosphatase 187 U/L (39-117); Anion Gap 15 (12-20); Aspartate Amino Transferase 40 U/L (5-31); Bilirubin Total 1.4 mg/dL (0.0-1.0); Blood Urea Nitrogen 15 mg/dL (9-16); C Reactive Protein 5.58 mg/dL (< or = 0.50); Calcium 8.7 mg/dL (8.4-10.2); Carbon Dioxide 23 mmol/L (22-29); Chloride 106 mmol/L (96-108); Creatinine Clr Calc Pharmacy 54.2; Estimated Glomerular Filt Rate > 60; Glucose Random 100 mg/dL (60-115); Sodium 140 mmol/L (135-145); Total Protein 6.2 g/dL (6.5-8.0)
[2022-02-03] MEDS: cefTRIAXone sodium 2 GM in 0.9 % Sodium Chloride 50 ML IV (21:20)
[2022-02-03 21:22] LABS: B Type Natriuretic Peptide 18 pg/mL (<100)
[2022-02-03 21:45] LABS: Influenza A PCR NEGATIVE (Negative); Influenza B PCR NEGATIVE (Negative); Resp Syncy Virus RNA Qual PCR NEGATIVE (Negative); SARS COV2 PCR INHOUSE NEGATIVE (Negative)
--- NOTE | 2022-02-03 22:37 | P.HPHOSP_ITS ---
History of Present Illness Date of Service: 02/03/22 Chief Complaint: abd distention This 6-year-old female with past medical history of primary biliary cholangitis, status post liver transplant 2016, HTN, anxiety, history of breast cancer status post lumpectomy, presents to the hospital for management of SBP. She was sent to the hospital by environmental conservation officer Dr. Galloway for IV antibiotics. Per patient she has been 0 waited for abdominal distension and had abnormal labs, and paracentesis resolved about a week ago, patient was diagnosed with SBP, was treated with p.o. antibiotics, but due to worsening neutral failure on her labs patient was sent to the ED for treatment with IV antibiotics. Patient denies any fever, no chills. She reports diffuse abdominal pain worse in the lower quadrants, reports the pain has been there for months, worse in the past 7-8 months, reports chronic diarrhea, denies any urinary symptoms. On arrival to the ED patient hemodynamically stable no significant abnormal vitals Labs are significant for WBC count of 3.9, hemoglobin of 10.5, hematocrit of 32.8, INR of 1.2, CRP of 5.58, total bili of 1.4, AST of 40, alk-phos of 187, ALT of 27, albumin of 3.4. UA shows leukocyte Estrace Abdomen pelvic CT shows no acute intra-abdominal process, cirrhosis and evidence of portal hypertension with splenomegaly and moderate volume ascites, presents in small right pleural effusion Patient started on IV antibiotics, will be admitted for further management Review of Systems Review of Systems: Yes all other systems are reviewed and are negative [facility] Medical History Anxiety Breast cancer Chronic diarrhea HTN (hypertension) Pancytopenia Primary biliary cholangitis Family History Mother CAD (coronary artery disease) Sister Ovarian cancer Mental health disorder Surgical History H/O: hysterectomy Hx of colonoscopy Hx of esophagogastroduodenoscopy Liver transplant recipient S/P hip replacement Transplant recipient Social History Household Members: Spouse Household Members Other:: , children Housing: House Do you presently have visiting nurse or other home services: No Alcohol intake: never Patient Tobacco Use Status: Never used Tobacco e-Cigarette/Vaping Use: Never Used Advance Directives: No Advance Directives Information Provided: No service: No Current occupational status: retired Cognitive needs: No Hearing needs: No Vision needs: Yes Meds Allergies Allergy/AdvReac Type Severity Reaction Status Date / Time hydromorphone [From Dilaudid] Allergy Severe Hallucinati Verified 02/03/22 11:15 ons losartan Allergy Intermediate Facial Verified 02/03/22 11:55 Swelling Sulfa (Sulfonamide AdvReac Severe Rash Verified 02/03/22 11:15 Antibiotics) Active Medications: Current Medications Pharmacy Consult (Consult Rx Perform Med Rec) 1 each MISCELLANE ONCE PRN PRN Reason: Consult order Home Medications Medication Instructions Recorded Confirmed Last Taken Type acetaminophen 325 mg tablet 650 mg PO Q4H PRN Pain (Scale 11/02/21 02/03/22 0 11/02/21 History Score 1-3) calcium carbonate 300 mg (750 mg) 300 mg PO QID PRN Indigestion 11/02/21 02/03/22 11/02/21 History chewable tablet (Tums) cholecalciferol (vitamin D3) 25 25 mcg PO DAILY 11/02/21 02/03/22 11/02/21 History mcg (1,000 unit) tablet (Vitamin D3) tacrolimus 0.5 mg capsule, 1 cap PO BID 11/02/21 02/03/22 11/02/21 History immediate-release ursodiol 500 mg tablet 1 tab PO BID 11/02/21 02/03/22 11/02/21 History Physical Exam Vital Signs and Narrative: Vital Signs: Last Vital Signs Temp 98.8 F 02/03/22 19:43 Pulse 94 02/03/22 19:43 Resp 18 02/03/22 19:43 BP 149/84 H 02/03/22 19:43 Pulse Ox 94 02/03/22 19:43 O2 Del Method 02/03/22 19:43 BMI result Body Mass Index 28.6 Const: General: cooperative and no acute distress Orientation/consciousness: patient oriented x3 Eyes: General: appearance normal, both eyes and all related structures Resp: Effort & Inspection: normal respiratory effort Auscultation: clear to auscultation bilaterally Cardio: Rate: regular rate Rhythm: regular rhythm GI: Other: Abdomen is distended, tender to palpation, guarding, no rebound Palpation (GI): Soft to palpation Auscultation: normal bowel sounds Skin: General skin exam: no rashes or lesions noted Neuro: General: patient oriented x3 Cognition (Neuro): normal cognition Extrem: General: Yes normal to inspection and Yes no pedal edema Results Labs CBC and Chem 7: 02/03/22 20:48 02/03/22 20:48 Labs: Laboratory Results - last 24 hr 02/03/22 02/03/22 02/03/22 20:48 20:48 20:48 MCV 89.9 MCH 28.8 MCHC 32.0 RDW 14.6 Plt Count 96 L MPV 9.9 Immature Gran % (Auto) 0.3 Neut % (Auto) 64.4 Lymph % (Auto) 17.8 L [place] % (Auto) 13.9 H Eos % (Auto) 3.1 Baso % (Auto) 0.5 Lymph # (Auto) 0.7 L [place] # (Auto) 0.5 Eos # (Auto) 0.1 Baso # (Auto) 0.0 Abs Immat Gran (auto) 0.01 Absolute Neuts (auto) 2.5 Absolute Nucleated RBC 0.000 Nucleated RBC % (auto) 0.0 Smear Tech's Comments VERIFIED PT INR APTT 32.8 Anion Gap Estim Creat Clear Calc Estimated GFR Random Glucose Lactic Acid Calcium Total Bilirubin AST ALT Alkaline Phosphatase Ammonia 23 C-Reactive Protein B-Natriuretic Peptide Total Protein Albumin Influenza Type A (PCR) Influenza Type B (PCR) RSV RNA Qual (PCR) SARS-CoV-2 RNA (RT-PCR) 02/03/22 02/03/22 02/03/22 20:48 20:48 20:48 MCV MCH MCHC RDW Plt Count MPV Immature Gran % (Auto) Neut % (Auto) Lymph % (Auto) [place] % (Auto) Eos % (Auto) Baso % (Auto) Lymph # (Auto) [place] # (Auto) Eos # (Auto) Baso # (Auto) Abs Immat Gran (auto) Absolute Neuts (auto) Absolute Nucleated RBC Nucleated RBC % (auto) Smear Tech's Comments PT 14.3 H INR 1.2 H APTT Anion Gap 15 Estim Creat Clear Calc 54.2 Estimated GFR > 60 Random Glucose 100 Lactic Acid 0.9 Calcium 8.7 Total Bilirubin 1.4 H AST 40 H ALT 27 Alkaline Phosphatase 187 H Ammonia C-Reactive Protein 5.58 H B-Natriuretic Peptide Total Protein 6.2 L Albumin 3.4 L Influenza Type A (PCR) Influenza Type B (PCR) RSV RNA Qual (PCR) SARS-CoV-2 RNA (RT-PCR) 02/03/22 02/03/22 20:48 20:48 MCV MCH MCHC RDW Plt Count MPV Immature Gran % (Auto) Neut % (Auto) Lymph % (Auto) [place] % (Auto) Eos % (Auto) Baso % (Auto) Lymph # (Auto) [place] # (Auto) Eos # (Auto) Baso # (Auto) Abs Immat Gran (auto) Absolute Neuts (auto) Absolute Nucleated RBC Nucleated RBC % (auto) Smear Tech's Comments PT INR APTT Anion Gap Estim Creat Clear Calc Estimated GFR Random Glucose Lactic Acid Calcium Total Bilirubin AST ALT Alkaline Phosphatase Ammonia C-Reactive Protein B-Natriuretic Peptide 18 Total Protein Albumin Influenza Type A (PCR) NEGATIVE Influenza Type B (PCR) NEGATIVE RSV RNA Qual (PCR) NEGATIVE SARS-CoV-2 RNA (RT-PCR) NEGATIVE Imaging Radiologist's Impressions: Impressions Chest X-Ray 02/03/22 20:40 IMPRESSION: Unremarkable examination. Abdomen/Pelvis CT 02/03/22 21:14 IMPRESSION: 1. No acute intra-abdominal process identified. 2. Cirrhosis and evidence of portal hypertension with splenomegaly and moderate volume ascites, unchanged. 3. Persistent small right pleural effusion. Assessment and Plan (1) SBP (spontaneous bacterial peritonitis): Status: Acute Plan 66-year-old female with past medical history of primary biliary cholangitis status post liver transplant, presents to the hospital for management of SBP # SBP - acute - has abdominal distension, pain, afebrile, with leukopenia - sent to the hospital by her environmental conservation officer due to failed outpatient therapy - will treat with IV antibiotics - patient did not undergo paracentesis in the ED, will consult IR for paracentesis in a.m. - gastroenterology consulted - continue rifaximin # liver transplant - secondary to PBC - continue tacrolimus DVT prophylaxis: Heparin subQ Given need for IV antibiotics and further evaluation by GI patient will require minimum 2 night inpatient hospital stay Quality Stroke Does the patient have a stroke diagnosis?: No VTE Prior VTE?: No VTE Risk Level:: Medical - moderate - high VTE Device Contraindication: Treatment Not Indicated VTE Drug Contraindication: N/A - Med Ordered
[2022-02-03] MEDS: Heparin Sodium,Porcine 5,000 UNIT/ML VIAL 5000 UNIT SUBCUT (23:31)
[2022-02-04] VITALS (7 sets, daily range): BP systolic 136–175; BP diastolic 71–91; PULSE 87–100; RESP 17–20; TEMP 36–37; O2SAT 92–97; BMI 28.4
[2022-02-04] MEDS: 0.9 % Sodium Chloride Flush 3 ML SYRINGE IVFLUSH ×4 (01:09→15:29)
[2022-02-04 01:26] LABS: Appearance Urine Clear; Color Urine Dark Yellow; Glucose Urine UA Negative (Negative); Leukocyte Esterase Urine Trace (Negative); Nitrite Urine Negative (Negative); PH 5.5 (5.0-9.0); Specific Gravity - Urine >= 1.030 (1.005-1.025); UMIC TRIGGER UACC YES; Urine Blood Negative (Negative); Urine Ketones Trace mg/dL (Negative); Urine Protein Trace mg/dL (Neg-Trace)
[2022-02-04 01:32] LABS: Bacteria Urine None Seen (None Seen); Hyaline Casts Urine 0-2 /LPF (0-2); RBC Urine 0-2 /HPF (0-2); Squamous Epithelial Cell Urine 0-2 /HPF (0-2); WBC Urine 0-5 /HPF (0-5)
[2022-02-04] MEDS: Albumin Human 25 % 100 ML IV ×4 (04:22→22:05)
[2022-02-04 07:48] LABS: Basophils Percent Auto 0.4 % (0-2); Eosinophils Absolute Auto 0.1 X10*3/uL (0.0-0.4); Eosinophils Percent Auto 3.1 % (0-4); Hematocrit 29.2 % (37.0-47.0); Hemoglobin 9.3 g/dl (12.0-16.0); Lymphocytes Absolute Auto 0.6 X10*3/uL (1.2-4.9); Lymphocytes Percent Auto 27.8 % (20-40); MANUAL DIFF FLAG SCAN; Mean Corpuscular HGB Conc 31.8 g/dl (31.0-35.0); Mean Corpuscular Hemoglobin 28.4 pg (27.0-33.0); Mean Corpuscular Volume 89.3 fL (80.0-98.0); Mean Platelet Volume 10.4 fL (9.4-12.3); Monocytes Absolute Auto 0.3 X10*3/uL (0.1-1.2); Monocytes Percent Auto 13.9 % (2-11); Neutrophils Absolute Auto 1.2 x10*3/uL (2.0-8.3); Neutrophils Percent Auto 54.8 % (45-73); Red Blood Count 3.27 X10*6/uL (4.20-5.50); Red Cell Distribution Width 14.6 % (11.0-16.0); SCAN SMEAR FLAG 1
[2022-02-04 07:50] LABS: Platelet Count 71 X10*3/uL (160-400); White Blood Count 2.2 X10*3/uL (4.8-10.8)
--- NOTE | 2022-02-04 08:08 | MHC.CM.PN ---
CM met with Patient at bedside and addressed IMM with her, providing her with the original and placing a copy on the chart. 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 Home, self care is the goal and CM has initiated and will follow for dc planning. Patient has received Moderna/Covid vax X4 and her PCP is Dr. Taylor Zapata.
[2022-02-04 08:10] LABS: Anion Gap 15 (12-20); Blood Urea Nitrogen 12 mg/dL (9-16); Calcium 8.5 mg/dL (8.4-10.2); Carbon Dioxide 23 mmol/L (22-29); Chloride 108 mmol/L (96-108); Creatinine Clr Calc Pharmacy 65.1; Estimated Glomerular Filt Rate > 60; Glucose Random 84 mg/dL (60-115); Potassium 4.1 mmol/L (3.3-5.1); Sodium 142 mmol/L (135-145)
[2022-02-04 08:34] LABS: SLIDE REVIEW VERIFIED
--- NOTE | 2022-02-04 10:13 | PHA.MEDREC ---
Pharmacy Consult ? Medication Reconciliation Pharmacy has completed the medication reconciliation.
--- NOTE | 2022-02-04 10:55 | P.CNGI_ITS ---
History of Present Illness Data of Consult Service Date: 02/04/22 Requesting physician: Diandra Kam Primary Care Provider: Taylor Zapata MD HPI Reason for consult: SBP 66-year-old female with past medical history of primary biliary cholangitis, s/p liver transplant--on tacrolimus 2015 ([facility]) with recurrence (stage 2-3 per [facility] biopsy), HTN, anxiety, history of breast cancer status post lumpectomy, who I am seeing for assessment for SBP She had been seen In GI clinic for investigation of diarrhea with negative studies thus far including endoscopies and pathology, stool tests, lab work. CTe suggested focal ileitis but capsule endoscopy was negative. Meantime Karen had reduced tacrolimus dose and her diarrhea got much better. In the interim she was noted to have ascites and had been c/o LUQ pain for 1 year which was worse with food and position as well as breathing and coughing. Ascitic tap was arranged with 1.4 L removed. Studies revealed SAAG 1.8 and pos cell count for SBP with culture neg samples. She had no fever so she was given PO cipro but repeat labs revealed rising CRP and she had ongoing sx she was advised to come in for further treatment. Labs: WCC of 3.9, hemoglobin of 10.5, hematocrit of 32.8, INR of 1.2, CRP of 5.58, total bili of 1.4, AST of 40, alk-phos of 187, ALT of 27, albumin of 3.4.? UA shows leukocyte Estrace Abdomen pelvic CT: no acute intra-abdominal process, cirrhosis and evidence of portal hypertension with splenomegaly and moderate volume ascites, small right pleural effusion She has been given albumin and IV rocephin Review of Systems Review of Systems: Constitutional : No Weight loss, No Fever, No Chills ENT/Mouth : No sore throat, No Rhinorrhea Eyes: No Swelling, No Redness Cardiovascular : No Chest Pain, No SOB, No Edema Respiratory : No Cough, No Sputum, No Wheezing Gastrointestinal : see HPI Genitourinary : NO Dysuria, No Urinary Frequency, No Hematuria, No Urgency Musculoskeletal : No joint pain, No Myalgias, No Joint Swelling Skin : No Skin Lesions, No rash Neuro : No Weakness, No Numbness, No Dizziness, No Headache, variable memory Psych : No Anxiety/Panic, No Depression Heme/Lymph: No Bruising, No Lymphadenopathy Endocrine : No Polyuria, No Polydipsia All other systems reviewed and are negative. [facility] Past Medical History Medical History Anxiety Breast cancer Chronic diarrhea HTN (hypertension) Pancytopenia Primary biliary cholangitis Family History Family History Mother CAD (coronary artery disease) Sister Ovarian cancer Mental health disorder Surgical History Surgical History H/O: hysterectomy Hx of colonoscopy Hx of esophagogastroduodenoscopy Liver transplant recipient S/P hip replacement Transplant recipient Social History Social History Household Members: Spouse Household Members Other:: , children Housing: House Do you presently have visiting nurse or other home services: No Alcohol intake: never Patient Tobacco Use Status: Never used Tobacco e-Cigarette/Vaping Use: Never Used Use of substances other than those prescribed or required for medical reasons: No Currently Displaying Signs/Symptoms of Drug Intoxication Withdrawal: No Have you been hit, kicked, punched, or otherwise hurt by someone within the past year? If so, by whom?: No Do you feel safe in your current relationship?: Yes Is there a partner from a previous relationship who is making you feel unsafe now?: No Are you made to feel afraid or neglected: No Advance Directives: No Advance Directives Information Provided: No Do you have thoughts of harming others: None Do you have a plan to hurt others: No Plan Recently lost weight without trying: No How much weight loss: Not applicable Eating poorly because of decreased appetite: No Nutrition screen score: 0 Nutrition Risks: No Nutritional Risk Patient : No : No Poor oral hygiene: No service: No Current occupational status: retired Cognitive needs: No Hearing needs: No Vision needs: Yes Meds Allergies Allergy/AdvReac Type Severity Reaction Status Date / Time hydromorphone [From Dilaudid] Allergy Severe Hallucinati Verified 02/03/22 11:15 ons losartan Allergy Intermediate Facial Verified 02/03/22 11:55 Swelling Sulfa (Sulfonamide AdvReac Severe Rash Verified 02/03/22 11:15 Antibiotics) Active Medications: Current Medications Acetaminophen (Acetaminophen 325 Mg Tablet) 650 mg PO Q12H PRN PRN Reason: Pain, Mild (Pain Scale 1-3) Calcium Carbonate (Calcium Carbonate 750 Mg Tab.Chew) 750 mg PO QID PRN PRN Reason: Indigestion Docusate Sodium (Docusate Sodium 100 Mg Capsule) 100 mg PO DAILY PRN PRN Reason: Constipation Gabapentin (Gabapentin 300 Mg Capsule) 300 mg PO BEDTIME [facility] Heparin Sodium (Porcine) (Heparin Sodium,Porcine 5,000 Unit/Ml Vial) 5,000 unit SUBCUT Q12H [facility] Last Admin: 02/03/22 23:31 Dose: 5,000 unit Ceftriaxone Sodium 1 gm/ (Sodium Chloride) 50 mls @ 100 mls/hr IV Q24H [facility] Albumin Human (Kedbumin 25 %) 100 mls @ 100 mls/hr IV Q6H [facility] Stop: 02/04/22 23:59 Last Infusion: 02/04/22 05:24 Dose: Infused Albumin Human (Kedbumin 25 %) 100 mls @ 100 mls/hr IV Q6H [facility] Stop: 02/06/22 17:59 Morphine Sulfate (Morphine Sulfate 2 Mg/Ml Cartridge) 2 mg IVPUSH Q2H PRN; Protocol PRN Reason: qamar pain Non-Formulary Medication (Colesevelam) 1,250 mg PO BID [facility] Non-Formulary Medication (Lidocaine [Lidoderm]) 1 patch TOPICAL DAILY PRN PRN Reason: Pain Non-Formulary Medication (Pantoprazole) 40 mg PO DAILY@0630 [facility] Non-Formulary Medication (Citalopram [Celexa]) 40 mg PO DAILY [facility] Non-Formulary Medication (Ursodiol) 1 tab PO BID [facility] Ondansetron HCl (Ondansetron Hcl 4 Mg/2 Ml Vial) 4 mg IVPUSH Q8H PRN PRN Reason: Nausea and Vomiting Oxycodone HCl (Oxycodone Hcl Immed Release 5 Mg Tablet) 5 mg PO Q4H PRN PRN Reason: moderato pain Pharmacy Consult (Consult Rx Perform Med Rec) 1 each MISCELLANE ONCE PRN PRN Reason: Consult order Pharmacy Consult (Consult Rx Perform Med Rec) 1 each MISCELLANE STAT STA Stop: 02/04/22 08:46 Sodium Chloride (0.9 % Sodium Chloride Flush 3 Ml Syringe) 3 ml IVFLUSH QSHIFT [facility] Last Admin: 02/04/22 09:25 Dose: 3 ml Tacrolimus (Tacrolimus 0.5 Mg Capsule) 0.5 mg PO BID [facility] Vitamin D (Cholecalciferol (Vitamin D3) 25 Mcg Tablet) 25 mcg PO DAILY [facility] Home Medications Medication Instructions Recorded Confirmed Last Taken Type acetaminophen 325 mg tablet 650 mg PO Q4H PRN Pain (Scale 11/02/21 02/04/22 11/02/21 History Score 1-3) calcium carbonate 300 mg (750 mg) 300 mg PO QID PRN Indigestion 11/02/21 02/04/22 11/02/21 History chewable tablet (Tums) cholecalciferol (vitamin D3) 25 25 mcg PO DAILY 11/02/21 02/04/22 02/03/22 History mcg (1,000 unit) tablet (Vitamin D3) tacrolimus 0.5 mg capsule, 1 cap PO BID 11/02/21 02/04/22 02/03/22 History immediate-release ursodiol 500 mg tablet 1 tab PO BID 11/02/21 02/04/22 02/03/22 History lidocaine 5 % topical patch 1 patch topical DAILY PRN Pain 02/04/22 02/04/22 Unknown History (Lidoderm) pantoprazole 40 mg tablet,delayed 40 mg PO DAILY@0630 02/04/22 02/04/22 02/03/22 History release Physical Exam Vital Signs: Vital Signs: Last Vital Signs Temp 97.7 F 02/04/22 07:43 Pulse 94 02/04/22 07:43 Resp 18 02/04/22 07:43 BP 142/80 H 02/04/22 07:43 Pulse Ox 97 02/04/22 07:43 O2 Del Method 02/04/22 07:43 BMI result Body Mass Index 28.4 EXAM: GENERAL: The patient is well developed and nontoxic. VITAL SIGNS:see workflow HEENT: Nonicteric sclerae, PERRLA, EOMI. Oropharynx clear. Moist mucous membranes. Conjunctivae appear well perfused. No thyroid mass. CHEST: Chest wall is nontender. HEART: Regular rate and rhythm without murmurs. LUNGS: Clear to auscultation bilaterally. ABDOMEN: Soft, positive bowel sounds, tender epigastrium and LUQ, no organomegaly.no flank tenderness SKIN: No rash, no excessive bruising, petechiae, or purpura. NEUROLOGIC: Cranial nerves II-XII intact without motor/sensory deficit. Mild tremor. psych: normal affect MS: normal movement Const: General: cooperative and no acute distress Orientat ion/consciousness: patient oriented x3 Eyes: General: appearance normal, both eyes and all related structures Resp: Effort & Inspection: normal respiratory effort Auscultation: clear to auscultation bilaterally Cardio: Rate: regular rate Rhythm: regular rhythm GI: Other: Abdomen is distended, tender to palpation, guarding, no rebound Palpation (GI): Soft to palpation Auscultation: normal bowel sounds Skin: General skin exam: no rashes or lesions noted Neuro: General: patient oriented x3 Cognition (Neuro): normal cognition Extrem: General: Yes normal to inspection and Yes no pedal edema Results Labs CBC & Chem 7: 02/04/22 06:41 02/04/22 06:41 Labs: Short CBC 02/03/22 02/04/22 Range/Units 20:48 06:41 WBC 3.9 L 2.2 L (4.8-10.8) X10*3/uL Hgb 10.5 L 9.3 L (12.0-16.0) g/dl Hct 32.8 L 29.2 L (37.0-47.0) % Plt Count 96 L 71 L D (160-400) X10*3/uL BMP 02/03/22 02/04/22 20:48 06:41 Sodium 140 142 Potassium 4.0 4.1 Chloride 106 108 Carbon Dioxide 23 23 BUN 15 12 Creatinine 0.82 0.68 Calcium 8.7 8.5 Liver Function 02/03/22 Range/Units 20:48 Total Bilirubin 1.4 H (0.0-1.0) mg/dL AST 40 H (5-31) U/L ALT 27 (0-31) U/L Alkaline Phosphatase 187 H (39-117) U/L Albumin 3.4 L (3.5-5.0) g/dL Urine 02/04/22 Range/Units 01:11 Urine Color Dark Yellow Urine Appearance Clear Urine pH 5.5 (5.0-9.0) Ur Specific Otto >= 1.030 H (1.005-1.025) Urine Protein Trace (Neg-Trace) mg/dL Urine Glucose (UA) Negative (Negative) mg/dL Imaging CT scan - abdomen: Attestation: I personally reviewed and interpreted this imaging study as follows: (ascitic fluid noted with peritoneal stranding, splenomegaly ) Assessment and Plan (1) SBP (spontaneous bacterial peritonitis): Status: Acute Plan 1/ Neutrocytic ascites (ie culture neg ascites with pos cell count for SBP), unc ertain the chroncity of this given she is on tacrolimus which will have attenuated her immune response. May have been causing her abdominal pain. 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
--- NOTE | 2022-02-04 12:17 | PC.NURSE ---
Albumin administered IV. Credentialer [employer] Lot #[id number] expiration 06/01/2024
[2022-02-04 12:24] LABS: C Reactive Protein 4.47 mg/dL (< or = 0.50)
[2022-02-04] MEDS: Lidocaine HCl 1 % 20 ML VIAL SUBCUT (12:33)
[2022-02-04 13:35] LABS: MN% 55.9 %; PMN% 44.1 %; RBC Peritoneal Fluid 0.002 X10*6/uL; WBC Peritoneal Fluid 1.505 X10*3/uL
[2022-02-04] MEDS: Tacrolimus 0.5 MG CAPSULE PO ×2 (14:08→20:13)
[2022-02-04] MEDS: Heparin Sodium,Porcine 5,000 UNIT/ML VIAL 5000 UNIT SUBCUT ×2 (14:09→22:05)
--- NOTE | 2022-02-04 14:19 | P.PNIM_ITS ---
Subjective Subjective Date of Service: 02/04/22 Interval History: no fever abd distension/pain Review of Systems Review of Systems: Yes all other systems are reviewed and are negative Physical Exam Vital Signs: Vital Signs: Last Vital Signs Temp 98.4 F 02/04/22 12:32 Pulse 98 02/04/22 12:32 Resp 18 02/04/22 12:32 BP 175/81 H 02/04/22 12:32 Pulse Ox 97 02/04/22 11:41 O2 Del Method 02/04/22 11:41 BMI result Body Mass Index 28.4 Gen: in no acute distress HEENT: sclera anicteric, moist mucus membranes Neck: supple Lungs: clear to auscultation bilaterally Heart: regular rate and rhythm, no murmurs Abd: distended, fluid wave Ext: no edema Skin: warm/well-perfused Neuro: alert and oriented x3, no focal findings Psych: appropriate affect Objective Data Active Medications Acetaminophen (Acetaminophen 325 Mg Tablet) 650 mg PO Q12H PRN PRN Reason: Pain, Mild (Pain Scale 1-3) Calcium Carbonate (Calcium Carbonate 750 Mg Tab.Chew) 750 mg PO QID PRN PRN Reason: Indigestion Docusate Sodium (Docusate Sodium 100 Mg Capsule) 100 mg PO DAILY PRN PRN Reason: Constipation Escitalopram Oxalate (Escitalopram Oxalate 20 Mg Tablet) 20 mg PO DAILY [facility] Gabapentin (Gabapentin 300 Mg Capsule) 300 mg PO BEDTIME [facility] Heparin Sodium (Porcine) (Heparin Sodium,Porcine 5,000 Unit/Ml Vial) 5,000 unit SUBCUT Q12H [facility] Last Admin: 02/04/22 14:09 Dose: 5,000 unit Documented By: ELISABETH Ceftriaxone Sodium 1 gm/ (Sodium Chloride) 50 mls @ 100 mls/hr IV Q24H [facility] Albumin Human (Kedbumin 25 %) 100 mls @ 100 mls/hr IV Q6H [facility] Stop: 02/04/22 23:59 Last Infusion: 02/04/22 14:02 Dose: 0 mls/hr Documented By: ELISABETH Albumin Human (Kedbumin 25 %) 100 mls @ 100 mls/hr IV Q6H [facility] Stop: 02/06/22 17:59 Lidocaine (Lidocaine 4 % Patch Adh..Patch) 1 patch TRANSDERMA DAILY PRN PRN Reason: Pain Morphine Sulfate (Morphine Sulfate 2 Mg/Ml Cartridge) 2 mg IVPUSH Q2H PRN; Protocol PRN Reason: qamar pain Non-Formulary Medication (Colesevelam) 1,250 mg PO BID [facility] Non-Formulary Medication (Ursodiol) 1 tab PO BID [facility] Omeprazole (Omeprazole 20 Mg Capsule.Dr) 20 mg PO DAILY@0630 [facility] Ondansetron HCl (Ondansetron Hcl 4 Mg/2 Ml Vial) 4 mg IVPUSH Q8H PRN PRN Reason: Nausea and Vomiting Oxycodone HCl (Oxycodone Hcl Immed Release 5 Mg Tablet) 5 mg PO Q4H PRN PRN Reason: moderato pain Pharmacy Consult (Consult Rx Perform Med Rec) 1 each MISCELLANE ONCE PRN PRN Reason: Consult order Sodium Chloride (0.9 % Sodium Chloride Flush 3 Ml Syringe) 3 ml IVFLUSH QSHIFT [facility] Last Admin: 02/04/22 09:25 Dose: 3 ml Documented By: ELISABETH Tacrolimus (Tacrolimus 0.5 Mg Capsule) 0.5 mg PO BID [facility] Last Admin: 02/04/22 14:08 Dose: 0.5 mg Documented By: ELISABETH Vitamin D (Cholecalciferol (Vitamin D3) 25 Mcg Tablet) 25 mcg PO DAILY [facility] Labs CBC & Chem 7: 02/04/22 06:41 02/04/22 06:41 Labs: Laboratory Results - last 24 hr 02/03/22 02/03/22 02/03/22 20:48 20:48 20:48 MCV 89.9 MCH 28.8 MCHC 32.0 RDW 14.6 Plt Count 96 L MPV 9.9 Immature Gran % (Auto) 0.3 Neut % (Auto) 64.4 Lymph % (Auto) 17.8 L [place] % (Auto) 13.9 H Eos % (Auto) 3.1 Baso % (Auto) 0.5 Lymph # (Auto) 0.7 L [place] # (Auto) 0.5 Eos # (Auto) 0.1 Baso # (Auto) 0.0 Abs Immat Gran (auto) 0.01 Absolute Neuts (auto) 2.5 Absolute Nucleated RBC 0.000 Nucleated RBC % (auto) 0.0 Smear Tech's Comments VERIFIED PT INR APTT 32.8 Anion Gap Estim Creat Clear Calc Estimated GFR Random Glucose Lactic Acid Calcium Total Bilirubin AST ALT Alkaline Phosphatase Ammonia 23 C-Reactive Protein B-Natriuretic Peptide Total Protein Albumin Urine Color Urine Appearance Urine pH Ur Specific [place] Urine Protein Urine Glucose (UA) Urine Ketones Urine Blood Urine Nitrite Ur Leukocyte Esterase Urine RBC Urine WBC Ur Squamous Epith Cells Urine Bacteria Hyaline Casts Peritoneal WBC Peritoneal RBC Influenza Type A (PCR) Influenza Type B (PCR) RSV RNA Qual (PCR) SARS-CoV-2 RNA (RT-PCR) 02/03/22 02/03/22 02/03/22 20:48 20:48 20:48 MCV MCH MCHC RDW Plt Count MPV Immature Gran % (Auto) Neut % (Auto) Lymph % (Auto) Gilliam % (Auto) Eos % (Auto) Baso % (Auto) Lymph # (Auto) [place]illi[place] # (Auto) Eos # (Auto) Baso # (Auto) Abs Immat Gran (auto) Absolute Neuts (auto) Absolute Nucleated RBC Nucleated RBC % (auto) Smear Tech's Comments PT 14.3 H INR 1.2 H APTT Anion Gap 15 Estim Creat Clear Calc 54.2 Estimated GFR > 60 Random Glucose 100 Lactic Acid 0.9 Calcium 8.7 Total Bilirubin 1.4 H AST 40 H ALT 27 Alkaline Phosphatase 187 H Ammonia C-Reactive Protein 5.58 H B-Natriuretic Peptide Total Protein 6.2 L Albumin 3.4 L Urine Color Urine Appearance Urine pH Ur Specific [place] Urine Protein Urine Glucose (UA) Urine Ketones Urine Blood Urine Nitrite Ur Leukocyte Esterase Urine RBC Urine WBC Ur Squamous Epith Cells Urine Bacteria Hyaline Casts Peritoneal WBC Peritoneal RBC Influenza Type A (PCR) Influenza Type B (PCR) RSV RNA Qual (PCR) SARS-CoV-2 RNA (RT-PCR) 02/03/22 02/03/22 02/04/22 20:48 20:48 01:11 MCV MCH MCHC RDW Plt Count MPV Immature Gran % (Auto) Neut % (Auto) Lymph % (Auto) Gilliam % (Auto) Eos % (Auto) Baso % (Auto) Lymph # (Auto) Gilliam # (Auto) Eos # (Auto) Baso # (Auto) Abs Immat Gran (auto) Absolute Neuts (auto) Absolute Nucleated RBC Nucleated RBC % (auto) Smear Tech's Comments PT INR APTT Anion Gap Estim Creat Clear Calc Estimated GFR Random Glucose Lactic Acid Calcium Total Bilirubin AST ALT Alkaline Phosphatase Ammonia C-Reactive Protein B-Natriuretic Peptide 18 Total Protein Albumin Urine Color Dark Yellow Urine Appearance Clear Urine pH 5.5 Ur Specific [place] >= 1.030 H Urine Protein Trace Urine Glucose (UA) Negative Urine Ketones Trace Urine Blood Negative Urine Nitrite Negative Ur Leukocyte Esterase Trace H Urine RBC 0-2 Urine WBC 0-5 Ur Squamous Epith Cells 0-2 Urine Bacteria None Seen Hyaline Casts 0-2 Peritoneal WBC Peritoneal RBC Influenza Type A (PCR) NEGATIVE Influenza Type B (PCR) NEGATIVE RSV RNA Qual (PCR) NEGATIVE SARS-CoV-2 RNA (RT-PCR) NEGATIVE 02/04/22 02/04/22 02/04/22 06:41 06:41 12:59 MCV 89.3 MCH 28.4 MCHC 31.8 RDW 14.6 Plt Count 71 L D MPV 10.4 Immature Gran % (Auto) 0.0 Neut % (Auto) 54.8 Lymph % (Auto) 27.8 Gilliam % (Auto) 13.9 H Eos % (Auto) 3.1 Baso % (Auto) 0.4 Lymph # (Auto) 0.6 L Gilliam # (Auto) 0.3 Eos # (Auto) 0.1 Baso # (Auto) 0.0 Abs Immat Gran (auto) 0.00 Absolute Neuts (auto) 1.2 L Absolute Nucleated RBC 0.000 Nucleated RBC % (auto) 0.0 Smear Tech's Comments VERIFIED PT INR APTT Anion Gap 15 Estim Creat Clear Calc 65.1 Estimated GFR > 60 Random Glucose 84 Lactic Acid Calcium 8.5 Total Bilirubin AST ALT Alkaline Phosphatase Ammonia C-Reactive Protein 4.47 H B-Natriuretic Peptide Total Protein Albumin Urine Color Urine Appearance Urine pH Ur Specific [place] Urine Protein Urine Glucose (UA) Urine Ketones Urine Blood Urine Nitrite Ur Leukocyte Esterase Urine RBC Urine WBC Ur Squamous Epith Cells Urine Bacteria Hyaline Casts Peritoneal WBC 1.505 Peritoneal RBC 0.002 Influenza Type A (PCR) Influenza Type B (PCR) RSV RNA Qual (PCR) SARS-CoV-2 RNA (RT-PCR) Assessment and Plan (1) SBP (spontaneous bacterial peritonitis): Status: Acute Plan d#2 66yo F with PBC s/p liver transplant in 2016, sent in to hospital by her GI for management of SBP # SBP/CNNA - bedside paracentesis today; will send peritoneal fluid for cell count, chemistries, Gram stain/routine culture, fungal culture, AFB culture, ADA - continue ceftriaxone d#2 - albumin 1.5 g/kg today then 1 g/kg on 02/06 # liver transplant - continue tacrolimus # PBC - bring in ursodiol and colesevelam from home # mood disorder - continue escitalopram # VTE ppx: UFH In my clinical judgment, the patient requires continued inpatient hospitaliz ation for the following reasons: IV ABX + IV albumin Quality Stroke Does the patient have a stroke diagnosis?: No VTE Prior VTE?: No VTE Risk Level:: Medical - moderate - high VTE Device Contraindication: Treatment Not Indicated VTE Drug Contraindication: N/A - Med Ordered
[2022-02-04 14:20] LABS: Neutrophils Peritoneal Fluid 43 %
[2022-02-04 14:21] LABS: BF Shift QC OK YES; Lymphocyte Peritoneal Fl 17 %; Monocytes Peritoneal Fl 3 %; Other Peritioneal Fl 37 %
[2022-02-04 15:07] LABS: pH Peritoneal Fluid 7.44
--- NOTE | 2022-02-04 15:07 | PM.GIPN ---
Subjective Subjective Date of Service: 02/04/22 Critical Care Time (minutes): 0 Physical Exam Vital Signs: Vital Signs: Last Vital Signs Temp 98.4 F 02/04/22 12:32 Pulse 98 02/04/22 12:32 Resp 18 02/04/22 12:32 BP 175/81 H 02/04/22 12:32 Pulse Ox 97 02/04/22 11:41 O2 Del Method 02/04/22 11:41 BMI result Body Mass Index 28.4 Objective Data Labs CBC & Chem 7: 02/04/22 06:41 02/04/22 06:41 Labs: Laboratory Results - last 24 hr 02/03/22 02/03/22 02/03/22 20:48 20:48 20:48 WBC 3.9 L RBC 3.65 L Hgb 10.5 L Hct 32.8 L MCV 89.9 MCH 28.8 MCHC 32.0 RDW 14.6 Plt Count 96 L MPV 9.9 Immature Gran % (Auto) 0.3 Neut % (Auto) 64.4 Lymph % (Auto) 17.8 L [place] % (Auto) 13.9 H Eos % (Auto) 3.1 Baso % (Auto) 0.5 Lymph # (Auto) 0.7 L [place] # (Auto) 0.5 Eos # (Auto) 0.1 Baso # (Auto) 0.0 Abs Immat Gran (auto) 0.01 Absolute Neuts (auto) 2.5 Absolute Nucleated RBC 0.000 Nucleated RBC % (auto) 0.0 Smear Tech's Comments VERIFIED PT INR APTT 32.8 Sodium Potassium Chloride Carbon Dioxide Anion Gap BUN Creatinine Estim Creat Clear Calc Estimated GFR Random Glucose Lactic Acid Calcium Total Bilirubin AST ALT Alkaline Phosphatase Ammonia 23 C-Reactive Protein B-Natriuretic Peptide Total Protein Albumin Urine Color Urine Appearance Urine pH Ur Specific [place] Urine Protein Urine Glucose (UA) Urine Ketones Urine Blood Urine Nitrite Ur Leukocyte Esterase Urine RBC Urine WBC Ur Squamous Epith Cells Urine Bacteria Hyaline Casts Peritoneal WBC Peritoneal RBC Periton Neutrophils Periton Lymphocytes Peritoneal Monocytes Peritoneal Other Cells Influenza Type A (PCR) Influenza Type B (PCR) RSV RNA Qual (PCR) SARS-CoV-2 RNA (RT-PCR) 02/03/22 02/03/22 02/03/22 20:48 20:48 20:48 WBC RBC Hgb Hct MCV MCH MCHC RDW Plt Count MPV Immature Gran % (Auto) Neut % (Auto) Lymph % (Auto) [place] % (Auto) Eos % (Auto) Baso % (Auto) Lymph # (Auto) [place] # (Auto) Eos # (Auto) Baso # (Auto) Abs Immat Gran (auto) Absolute Neuts (auto) Absolute Nucleated RBC Nucleated RBC % (auto) Smear Tech's Comments PT 14.3 H INR 1.2 H APTT Sodium 140 Potassium 4.0 Chloride 106 Carbon Dioxide 23 Anion Gap 15 BUN 15 Creatinine 0.82 Estim Creat Clear Calc 54.2 Estimated GFR > 60 Random Glucose 100 Lactic Acid 0.9 Calcium 8.7 Total Bilirubin 1.4 H AST 40 H ALT 27 Alkaline Phosphatase 187 H Ammonia C-Reactive Protein 5.58 H B-Natriuretic Peptide Total Protein 6.2 L Albumin 3.4 L Urine Color Urine Appearance Urine pH Ur Specific [place] Urine Protein Urine Glucose (UA) Urine Ketones Urine Blood Urine Nitrite Ur Leukocyte Esterase Urine RBC Urine WBC Ur Squamous Epith Cells Urine Bacteria Hyaline Casts Peritoneal WBC Peritoneal RBC Periton Neutrophils Periton Lymphocytes Peritoneal Monocytes Peritoneal Other Cells Influenza Type A (PCR) Influenza Type B (PCR) RSV RNA Qual (PCR) SARS-CoV-2 RNA (RT-PCR) 02/03/22 02/03/22 02/04/22 20:48 20:48 01:11 WBC RBC Hgb Hct MCV MCH MCHC RDW Plt Count MPV Immature Gran % (Auto) Neut % (Auto) Lymph % (Auto) [place] % (Auto) Eos % (Auto) Baso % (Auto) Lymph # (Auto) [place] # (Auto) Eos # (Auto) Baso # (Auto) Abs Immat Gran (auto) Absolute Neuts (auto) Absolute Nucleated RBC Nucleated RBC % (auto) Smear Tech's Comments PT INR APTT Sodium Potassium Chloride Carbon Dioxide Anion Gap BUN Creatinine Estim Creat Clear Calc Estimated GFR Random Glucose Lactic Acid Calcium Total Bilirubin AST ALT Alkaline Phosphatase Ammonia C-Reactive Protein B-Natriuretic Peptide 18 Total Protein Albumin Urine Color Dark Yellow Urine Appearance Clear Urine pH 5.5 Ur Specific [place] >= 1.030 H Urine Protein Trace Urine Glucose (UA) Negative Urine Ketones Trace Urine Blood Negative Urine Nitrite Negative Ur Leukocyte Esterase Trace H Urine RBC 0-2 Urine WBC 0-5 Ur Squamous Epith Cells 0-2 Urine Bacteria None Seen Hyaline Casts 0-2 Peritoneal WBC Peritoneal RBC Periton Neutrophils Periton Lymphocytes Peritoneal Monocytes Peritoneal Other Cells Influenza Type A (PCR) NEGATIVE Influenza Type B (PCR) NEGATIVE RSV RNA Qual (PCR) NEGATIVE SARS-CoV-2 RNA (RT-PCR) NEGATIVE 02/04/22 02/04/22 02/04/22 06:41 06:41 12:59 WBC 2.2 L RBC 3.27 L Hgb 9.3 L Hct 29.2 L MCV 89.3 MCH 28.4 MCHC 31.8 RDW 14.6 Plt Count 71 L D MPV 10.4 Immature Gran % (Auto) 0.0 Neut % (Auto) 54.8 Lymph % (Auto) 27.8 [place] % (Auto) 13.9 H Eos % (Auto) 3.1 Baso % (Auto) 0.4 Lymph # (Auto) 0.6 L [place] # (Auto) 0.3 Eos # (Auto) 0.1 Baso # (Auto) 0.0 Abs Immat Gran (auto) 0.00 Absolute Neuts (auto) 1.2 L Absolute Nucleated RBC 0.000 Nucleated RBC % (auto) 0.0 Smear Tech's Comments VERIFIED PT INR APTT Sodium 142 Potassium 4.1 Chloride 108 Carbon Dioxide 23 Anion Gap 15 BUN 12 Creatinine 0.68 Estim Creat Clear Calc 65.1 Estimated GFR > 60 Random Glucose 84 Lactic Acid Calcium 8.5 Total Bilirubin AST ALT Alkaline Phosphatase Ammonia C-Reactive Protein 4.47 H B-Natriuretic Peptide Total Protein Albumin Urine Color Urine Appearance Urine pH Ur Specific [place] Urine Protein Urine Glucose (UA) Urine Ketones Urine Blood Urine Nitrite Ur Leukocyte Esterase Urine RBC Urine WBC Ur Squamous Epith Cells Urine Bacteria Hyaline Casts Peritoneal WBC 1.505 Peritoneal RBC 0.002 Periton Neutrophils 43 Periton Lymphocytes 17 Peritoneal Monocytes 3 Peritoneal Other Cells 37 Influenza Type A (PCR) Influenza Type B (PCR) RSV RNA Qual (PCR) SARS-CoV-2 RNA (RT-PCR) Procedures Date of Service Date of Service: 02/04/22 Paracentesis Paracentesis Comments: IR was not available today so I performed bedside US imaging w/ diagnostic paracentesis. Consent for Procedure: Elective - informed consent obtained Time out performed: Yes Indication: possible spontaneous bacterial peritonitis Procedure: diagnostic paracentesis Location: LLQ Local anesthetic used: lidocaine 1% Amount of anesthesia used (ml): 5 Bedside ultrasound used: yes, Ascites confirmed and location marked Preparation: sterile prep and drape Amount of fluid obtained (ml): 55 Fluid: clear and sent to lab for analysis (cell counts, cultures, ADA level) Post procedure exam: awake, alert Patient tolerated procedure: well Complications: none Progress Note: A&P Time Spent With Patient Time: Total time spent is greater than 50% in coordination of care (as documented) at patient's floor/unit and/or counseling patient: Quality Stroke Does the patient have a stroke diagnosis?: No VTE Prior VTE?: No VTE Risk Level:: Medical - moderate - high VTE Device Contraindication: Treatment Not Indicated VTE Drug Contraindication: N/A - Med Ordered
[2022-02-04] MEDS: Lidocaine 4 % Patch ADH..PATCH 1 PATCH TRANSDERMA (15:38)
[2022-02-04] MEDS: Morphine Sulfate 2 MG/ML CARTRIDGE IVPUSH (15:39)
[2022-02-04 16:14] LABS: Albumin Peritoneal Fluid 1.8 GM/DL; Glucose Peritoneal Fluid 97 MG/DL; LDH Peritoneal Fluid 87 U/L; Total Protein Peritoneal Fluid 2.7 GM/DL
[2022-02-04] MEDS: Gabapentin 300 MG CAPSULE PO (20:13)
[2022-02-04] MEDS: URSODIOL 500 MG 1 EACH PO (20:14)
[2022-02-04] MEDS: oxyCODONE HCl Immed Release 5 MG TABLET PO (20:19)
[2022-02-05] MEDS: 0.9 % Sodium Chloride Flush 3 ML SYRINGE IVFLUSH ×3 (00:02→16:00)
[2022-02-05 03:22] VITALS: BP 139/77; PULSE 100; RESP 20; TEMP 36.4; O2SAT 92
[2022-02-05 05:51] VITALS: BMI 28.3
[2022-02-05] MEDS: Omeprazole 20 MG CAPSULE.DR PO (06:05)
[2022-02-05 06:16] LABS: Hematocrit 30.2 % (37.0-47.0); Hemoglobin 9.7 g/dl (12.0-16.0); Mean Corpuscular HGB Conc 32.1 g/dl (31.0-35.0); Mean Corpuscular Volume 90.4 fL (80.0-98.0); Mean Platelet Volume 9.2 fL (9.4-12.3); Red Blood Count 3.34 X10*6/uL (4.20-5.50); Red Cell Distribution Width 14.3 % (11.0-16.0)
[2022-02-05 06:17] LABS: Platelet Count 65 X10*3/uL (160-400); White Blood Count 2.4 X10*3/uL (4.8-10.8)
[2022-02-05 06:24] LABS: INTERNATIONAL NORM RATIO 1.3 (0.9-1.1); Prothrombin Time 15.1 SEC (10.0-13.1)
[2022-02-05 06:28] LABS: Amylase Peritoneal Fluid 22
[2022-02-05 06:43] LABS: Alanine Aminotransferase 19 U/L (0-31); Alkaline Phosphatase 126 U/L (39-117); Anion Gap 16 (12-20); Aspartate Amino Transferase 30 U/L (5-31); Blood Urea Nitrogen 9 mg/dL (9-16); Calcium 8.9 mg/dL (8.4-10.2); Carbon Dioxide 22 mmol/L (22-29); Chloride 106 mmol/L (96-108); Creatinine Clr Calc Pharmacy 67.1; Estimated Glomerular Filt Rate > 60; Glucose Random 86 mg/dL (60-115); Magnesium 1.8 mg/dL (1.6-2.6); Potassium 4.2 mmol/L (3.3-5.1); Sodium 140 mmol/L (135-145)
[2022-02-05 07:44] VITALS: BP 150/74; PULSE 93; RESP 18; TEMP 36.8; O2SAT 95
[2022-02-05 07:47] LABS: C Reactive Protein 5.31 mg/dL (< or = 0.50)
[2022-02-05] MEDS: Tacrolimus 0.5 MG CAPSULE PO ×2 (07:54→20:41)
[2022-02-05] MEDS: Escitalopram Oxalate 20 MG TABLET PO (07:54)
[2022-02-05] MEDS: Cholecalciferol (Vitamin D3) 25 MCG TABLET PO (07:54)
[2022-02-05] MEDS: URSODIOL 500 MG 1 EACH PO ×2 (07:55→20:41)
--- NOTE | 2022-02-05 10:30 | P.PNIM_ITS ---
Subjective Subjective Date of Service: 02/05/22 Interval History: Diagnostic paracentesis yesterday C/o upper abd distension/pain C/o dyspnea No fever Poor appetite Review of Systems Review of Systems: Yes all other systems are reviewed and are negative Physical Exam Vital Signs: Vital Signs: Last Vital Signs Temp 98.3 F 02/05/22 07:44 Pulse 93 02/05/22 07:44 Resp 18 02/05/22 07:44 BP 150/74 H 02/05/22 07:44 Pulse Ox 95 02/05/22 07:44 O2 Del Method 02/05/22 07:44 BMI result Body Mass Index 28.3 Gen: in no acute distress HEENT: sclera anicteric, moist mucus membranes Neck: supple Lungs: diminished bilaterally Heart: regular rate and rhythm, no murmurs Abd: decreased distension from yesterday, fluid wave, paracentesis sites without bleeding Ext: no edema Skin: warm/well-perfused Neuro: alert and oriented x3, no focal findings Psych: appropriate affect Objective Data Active Medications Acetaminophen (Acetaminophen 325 Mg Tablet) 650 mg PO Q12H PRN PRN Reason: Pain, Mild (Pain Scale 1-3) Calcium Carbonate (Calcium Carbonate 750 Mg Tab.Chew) 750 mg PO QID PRN PRN Reason: Indigestion Docusate Sodium (Docusate Sodium 100 Mg Capsule) 100 mg PO DAILY PRN PRN Reason: Constipation Escitalopram Oxalate (Escitalopram Oxalate 20 Mg Tablet) 20 mg PO DAILY [facility] Last Admin: 02/05/22 07:54 Dose: 20 mg Documented By: LEONIDAS Gabapentin (Gabapentin 300 Mg Capsule) 300 mg PO BEDTIME [facility] [place] Last Admin: 02/04/22 20:13 Dose: 300 mg Documented By: REYNA Heparin Sodium (Porcine) (Heparin Sodium,Porcine 5,000 Unit/Ml Vial) 5,000 unit SUBCUT Q12H [facility] Last Admin: 02/04/22 22:05 Dose: 5,000 unit Documented By: REYNA Albumin Human (Kedbumin 25 %) 100 mls @ 100 mls/hr IV Q6H [facility] [place] Stop: 02/06/22 17:59 Meropenem 1 gm/ Sodium (Chloride) 100 mls @ 200 mls/hr IV Q8H [facility] [place] Last Infusion: 02/05/22 09:17 Dose: 200 mls/hr Documented By: LEONIDAS Lidocaine (Lidocaine 4 % Patch Adh..Patch) 1 patch TRANSDERMA DAILY PRN PRN Reason: Pain Last Admin: 02/04/22 15:38 Dose: 1 patch Documented By: REYNA Morphine Sulfate (Morphine Sulfate 2 Mg/Ml Cartridge) 2 mg IVPUSH Q2H PRN; Protocol PRN Reason: qamar pain Last Admin: 02/04/22 15:39 Dose: 2 mg Documented By: REYNA Pt Own (Colesevelam (625 Mg Tablet)) 1,250 mg PO BID [facility] [place] Last Admin: 02/05/22 07:55 Dose: 1,250 mg Documented By: LEONIDAS Pt Own (Ursodiol 500 (Mg Tablet)) 1 tab PO BID [facility] Last Admin: 02/05/22 07:55 Dose: 1 tab Documented By: LEONIDAS Omeprazole (Omeprazole 20 Mg Capsule.Dr) 20 mg PO DAILY@0630 [facility] Last Admin: 02/05/22 06:05 Dose: 20 mg Documented By: CHITO Ondansetron HCl (Ondansetron Hcl 4 Mg/2 Ml Vial) 4 mg IVPUSH Q8H PRN PRN Reason: Nausea and Vomiting Oxycodone HCl (Oxycodone Hcl Immed Release 5 Mg Tablet) 5 mg PO Q4H PRN PRN Reason: moderato pain Last Admin: 02/04/22 20:19 Dose: 5 mg Documented By: REYNA Pharmacy Consult (Consult Rx Perform Med Rec) 1 each MISCELLANE ONCE PRN PRN Reason: Consult order Sodium Chloride (0.9 % Sodium Chloride Flush 3 Ml Syringe) 3 ml IVFLUSH QSHIFT [facility] Last Admin: 02/05/22 07:56 Dose: 3 ml Documented By: LEONIDAS Tacrolimus (Tacrolimus 0.5 Mg Capsule) 0.5 mg PO BID [facility] Last Admin: 02/05/22 07:54 Dose: 0.5 mg Documented By: LEONIDAS Vitamin D (Cholecalciferol (Vitamin D3) 25 Mcg Tablet) 25 mcg PO DAILY [facility] Last Admin: 02/05/22 07:54 Dose: 25 mcg Documented By: LEONIDAS Labs CBC & Chem 7: 02/05/22 06:08 02/05/22 06:08 Labs: Laboratory Results - last 24 hr 11/05/22 11/05/22 11/05/22 06:41 12:59 12:59 MCV MCH MCHC RDW Plt Count MPV Absolute Nucleated RBC Nucleated RBC % (auto) PT INR Anion Gap Estim Creat Clear Calc Estimated GFR Random Glucose Calcium Magnesium Total Bilirubin AST ALT Alkaline Phosphatase C-Reactive Protein 4.47 H Total Protein Albumin Peritoneal pH Peritoneal WBC 1.505 Peritoneal RBC 0.002 Periton Neutrophils 43 Periton Lymphocytes 17 Peritoneal Monocytes 3 Peritoneal Other Cells 37 Peritoneal Tot Protein 2.7 Peritoneal Albumin 1.8 Peritoneal LDH 87 Peritoneal Glucose 97 Peritoneal Amylase 22 02/04/22 02/05/22 02/05/22 12:59 06:08 06:08 MCV 90.4 MCH 29.0 MCHC 32.1 RDW 14.3 Plt Count 65 L MPV 9.2 L Absolute Nucleated RBC 0.000 Nucleated RBC % (auto) 0.0 PT 15.1 H INR 1.3 H Anion Gap Estim Creat Clear Calc Estimated GFR Random Glucose Calcium Magnesium Total Bilirubin AST ALT Alkaline Phosphatase C-Reactive Protein Total Protein Albumin Peritoneal pH 7.44 Peritoneal WBC Peritoneal RBC Periton Neutrophils Periton Lymphocytes Peritoneal Monocytes Peritoneal Other Cells Peritoneal Tot Protein Peritoneal Albumin Peritoneal LDH Peritoneal Glucose Peritoneal Amylase 02/05/22 06:08 MCV MCH MCHC RDW Plt Count MPV Absolute Nucleated RBC Nucleated RBC % (auto) PT INR Anion Gap 16 Estim Creat Clear Calc 67.1 Estimated GFR > 60 Random Glucose 86 Calcium 8.9 Magnesium 1.8 Total Bilirubin 2.0 H AST 30 ALT 19 Alkaline Phosphatase 126 H D C-Reactive Protein 5.31 H Total Protein 6.0 L Albumin 4.0 Peritoneal pH Peritoneal WBC Peritoneal RBC Periton Neutrophils Periton Lymphocytes Peritoneal Monocytes Peritoneal Other Cells Peritoneal Tot Protein Peritoneal Albumin Peritoneal LDH Peritoneal Glucose Peritoneal Amylase Microbiology Microbiology Results: Microbiology 02/04/22 12:59 Gram Stain - Final Ascites Fluid Anaerobic Culture - Preliminary No growth to date. Body Fluid Culture - Preliminary No growth after 1 day 02/03/22 21:15 Blood Culture - Preliminary Blood - Venous No growth after 24 hours. 02/03/22 20:48 Blood Culture - Preliminary Blood - Venous No growth after 24 hours. Assessment and Plan (1) SBP (spontaneous bacterial peritonitis): Status: Acute Plan d#3 66yo F with PBC s/p liver transplant in 2016, sent in to hospital by her [facility] roenterologist for management of SBP # SBP/CNNA - bedside paracentesis done yesterday; PMNs increased from 300 to 645. was treated as outpt with ciprofloxacin. ABX broadened from ceftriaxone to cristal openem yesterday. follow fluid cultures [routine, fungal, AFB] + ADA + pathology - got albumin 1.5 g/kg yesterday then 1 g/kg tomorrow for prevention of HRS # cirrhosis - MELD 14, GI to discuss with her transplant team at [facility] # liver transplant - continue tacrolimus # PBC - continue ursodiol and colesevelam from home # mood disorder - continue escitalopram # VTE ppx: UFH In my clinical judgment, the patient requires continued inpatient hospitalization for the following reasons: IV ABX + IV albumin Quality Stroke Does the patient have a stroke diagnosis?: No VTE Prior VTE?: No VTE Risk Level:: Medical - moderate - high VTE Device Contraindication: Treatment Not Indicated VTE Drug Contraindication: N/A - Med Ordered
[2022-02-05 11:35] VITALS: BP 150/77; PULSE 96; RESP 20; TEMP 37.2; O2SAT 96
[2022-02-05] MEDS: Heparin Sodium,Porcine 5,000 UNIT/ML VIAL 5000 UNIT SUBCUT (12:03)
[2022-02-05 15:09] VITALS: BP 159/77; PULSE 100; RESP 17; TEMP 36; O2SAT 95
[2022-02-05 19:16] VITALS: BP 143/72; PULSE 100; RESP 17; TEMP 36; O2SAT 95
[2022-02-05] MEDS: Gabapentin 300 MG CAPSULE PO (20:40)
--- NOTE | 2022-02-05 22:52 | W.PM.IDCN ---
History of Present Illness Data of Consult Service Date: 02/04/22 Requesting physician: Diandra Kam Primary Care Provider: Taylor Zapata MD HPI Reason for consult: abdominal discomfort She presents with abdominal discomfort She has had no fever or chills. She has abdominal discomfort for day or two. Review of Systems Review of Systems: Yes all other systems are reviewed and are negative PMFSH Past Medical History Medical History Anxiety Breast cancer Chronic diarrhea HTN (hypertension) Pancytopenia Primary biliary cholangitis Family History Family History Mother CAD (coronary artery disease) Sister Ovarian cancer Mental health disorder Family history: reviewed and not pertinent Surgical History Surgical History H/O: hysterectomy Hx of colonoscopy Hx of esophagogastroduodenoscopy Liver transplant recipient S/P hip replacement Transplant recipient Social History Social History Household Members: Spouse Household Members Other:: , children Housing: House Do you presently have visiting nurse or other home services: No Alcohol intake: never Patient Tobacco Use Status: Never used Tobacco e-Cigarette/Vaping Use: Never Used Use of substances other than those prescribed or required for medical reasons: No Currently Displaying Signs/Symptoms of Drug Intoxication Withdrawal: No Have you been hit, kicked, punched, or otherwise hurt by someone within the past year? If so, by whom?: No Do you feel safe in your current relationship?: Yes Is there a partner from a previous relationship who is making you feel unsafe now?: No Are you made to feel afraid or neglected: No Advance Directives: No Advance Directives Information Provided: No Do you have thoughts of harming others: None Do you have a plan to hurt others: No Plan Recently lost weight without trying: No How much weight loss: Not applicable Eating poorly because of decreased appetite: No Nutrition screen score: 0 Nutrition Risks: No Nutritional Risk Patient : No : No Poor oral hygiene: No service: No Current occupational status: retired Cognitive needs: No Hearing needs: No Vision needs: Yes Meds Allergies Allergy/AdvReac Type Severity Reaction Status Date / Time hydromorphone [From Dilaudid] Allergy Severe Hallucinati Verified 02/03/22 11:15 ons losartan Allergy Intermediate Facial Verified 02/03/22 11:55 Swelling Sulfa (Sulfonamide AdvReac Severe Rash Verified 02/03/22 11:15 Antibiotics) Active Medications: Current Medications Acetaminophen (Acetaminophen 325 Mg Tablet) 650 mg PO Q12H PRN PRN Reason: Pain, Mild (Pain Scale 1-3) Calcium Carbonate (Calcium Carbonate 750 Mg Tab.Chew) 750 mg PO QID PRN PRN Reason: Indigestion Docusate Sodium (Docusate Sodium 100 Mg Capsule) 100 mg PO DAILY PRN PRN Reason: Constipation Escitalopram Oxalate (Escitalopram Oxalate 20 Mg Tablet) 20 mg PO DAILY COUNTS INCLUDE 234 BEDS AT THE [facility] Last Admin: 02/05/22 07:54 Dose: 20 mg Gabapentin (Gabapentin 300 Mg Capsule) 300 mg PO BEDTIME COUNTS INCLUDE 234 BEDS AT THE [facility] Last Admin: 02/05/22 20:40 Dose: 300 mg Heparin Sodium (Porcine) (Heparin Sodium,Porcine 5,000 Unit/Ml Vial) 5,000 unit SUBCUT Q12H COUNTS INCLUDE 234 BEDS AT THE [facility] Last Admin: 02/05/22 12:03 Dose: 5,000 unit Albumin Human (Kedbumin 25 %) 100 mls @ 100 mls/hr IV Q6H COUNTS INCLUDE 234 BEDS AT THE [facility] Stop: 02/06/22 17:59 Meropenem 1 gm/ Sodium (Chloride) 100 mls @ 200 mls/hr IV Q8H COUNTS INCLUDE 234 BEDS AT THE [facility] Last Infusion: 02/05/22 16:48 Dose: Infused Lidocaine (Lidocaine 4 % Patch Adh..Patch) 1 patch TRANSDERMA DAILY PRN PRN Reason: Pain Last Admin: 02/04/22 15:38 Dose: 1 patch Morphine Sulfate (Morphine Sulfate 2 Mg/Ml Cartridge) 2 mg IVPUSH Q2H PRN; Protocol PRN Reason: qamar pain Last Admin: 02/04/22 15:39 Dose: 2 mg Pt Own (Colesevelam (625 Mg Tablet)) 1,250 mg PO BID COUNTS INCLUDE 234 BEDS AT THE [facility] Last Admin: 02/05/22 20:41 Dose: 1,250 mg Pt Own (Ursodiol 500 (Mg Tablet)) 1 tab PO BID COUNTS INCLUDE 234 BEDS AT THE [facility] Last Admin: 02/05/22 20:41 Dose: 1 tab Omeprazole (Omeprazole 20 Mg Capsule.Dr) 20 mg PO DAILY@0630 COUNTS INCLUDE 234 BEDS AT THE [facility] Last Admin: 02/05/22 06:05 Dose: 20 mg Ondansetron HCl (Ondansetron Hcl 4 Mg/2 Ml Vial) 4 mg IVPUSH Q8H PRN PRN Reason: Nausea and Vomiting Oxycodone HCl (Oxycodone Hcl Immed Release 5 Mg Tablet) 5 mg PO Q4H PRN PRN Reason: moderato pain Last Admin: 02/04/22 20:19 Dose: 5 mg Pharmacy Consult (Consult Rx Perform Med Rec) 1 each MISCELLANE ONCE PRN PRN Reason: Consult order Sodium Chloride (0.9 % Sodium Chloride Flush 3 Ml Syringe) 3 ml IVFLUSH QSHIFT COUNTS INCLUDE 234 BEDS AT THE [facility] Last Admin: 02/05/22 16:00 Dose: 3 ml Tacrolimus (Tacrolimus 0.5 Mg Capsule) 0.5 mg PO BID COUNTS INCLUDE 234 BEDS AT THE [facility] Last Admin: 02/05/22 20:41 Dose: 0.5 mg Vitamin D (Cholecalciferol (Vitamin D3) 25 Mcg Tablet) 25 mcg PO DAILY COUNTS INCLUDE 234 BEDS AT THE [facility] Last Admin: 02/05/22 07:54 Dose: 25 mcg Home Medications Medication Instructions Recorded Confirmed Last Taken Type acetaminophen 325 mg tablet 650 mg PO Q4H PRN Pain (Scale 11/02/21 02/04/22 11/02/21 History Score 1-3) calcium carbonate 300 mg (750 mg) 300 mg PO QID PRN Indigestion 11/02/21 02/04/22 11/02/21 History chewable tablet (Tums) cholecalciferol (vitamin D3) 25 25 mcg PO DAILY 11/02/21 02/04/22 02/03/22 History mcg (1,000 unit) tablet (Vitamin D3) tacrolimus 0.5 mg capsule, 1 cap PO BID 11/02/21 02/04/22 02/03/22 History immediate-release ursodiol 500 mg tablet 1 tab PO BID 11/02/21 02/04/22 02/03/22 History lidocaine 5 % topical patch 1 patch topical DAILY PRN Pain 02/04/22 02/04/22 Unknown History (Lidoderm) pantoprazole 40 mg tablet,delayed 40 mg PO DAILY@0630 02/04/22 02/04/22 02/03/22 History release Physical Exam Vital Signs: Vital Signs: Last Vital Signs Temp 96.8 F 02/05/22 19:16 Pulse 100 02/05/22 19:16 Resp 17 02/05/22 19:16 BP 143/72 H 02/05/22 19:16 Pulse Ox 95 02/05/22 19:16 O2 Del Method 02/05/22 19:16 BMI result Body Mass Index 28.3 Const: General: cooperative HEENT: Head: Yes normal to inspection Face and sinus: Yes normal facial exam Mouth: Normal oral and palatal mucosa present Teeth and gingiva: dentition normal Eyes: General: appearance normal, both eyes and all related structures Pupils: Equal, round and reactive pupils present Resp: Effort & Inspection: normal respiratory effort Cardio: Rate: regular rate Rhythm: regular rhythm GI: Palpation (GI): Soft to palpation and nontender (discomfort abdomen swelling) : General: Yes no CVA tenderness Back/Spine/Pelvis: Back: no CVA tenderness Skin: General skin exam: no rashes or lesions noted Neuro: General: moves all extremities Cranial nerves: Yes Equal, round and reactive pupils present Extrem: General: Yes normal to inspection Psych: Appearance: grossly normal Results Labs CBC & Chem 7: 02/05/22 06:08 02/05/22 06:08 Labs: Short CBC 02/05/22 Range/Units 06:08 WBC 2.4 L (4.8-10.8) X10*3/uL Hgb 9.7 L (12.0-16.0) g/dl Hct 30.2 L (37.0-47.0) % Plt Count 65 L (160-400) X10*3/uL BMP 02/05/22 06:08 Sodium 140 Potassium 4.2 Chloride 106 Carbon Dioxide 22 BUN 9 Creatinine 0.66 Calcium 8.9 Liver Function 02/05/22 Range/Units 06:08 Total Bilirubin 2.0 H (0.0-1.0) mg/dL AST 30 (5-31) U/L ALT 19 (0-31) U/L Alkaline Phosphatase 126 H D (39-117) U/L Albumin 4.0 (3.5-5.0) g/dL Microbiology Microbiology Results: Microbiology 02/04/22 12:59 Ascites Fluid Gram Stain - Final 02/04/22 12:59 Ascites Fluid Anaerobic Culture - Preliminary No growth to date. 02/04/22 12:59 Ascites Fluid Body Fluid Culture - Preliminary No growth after 1 day 02/03/22 21:15 Blood - Venous Blood Culture - Preliminary No growth after 24 hours. 02/03/22 20:48 Blood - Venous Blood Culture - Preliminary No growth after 24 hours. Assessment and Plan (1) Sepsis: Status: Acute (2) SBP (spontaneous bacterial peritonitis): Status: Acute There is concern over SBP but no organisms found so far.She has no signs of urinary infection Plan Would give Ceftriaxone instead of Merem
[2022-02-05 23:20] VITALS: BP 133/78; PULSE 99; RESP 18; TEMP 36.6; O2SAT 96
[2022-02-06] MEDS: Heparin Sodium,Porcine 5,000 UNIT/ML VIAL 5000 UNIT SUBCUT ×2 (00:36→23:56)
[2022-02-06] MEDS: 0.9 % Sodium Chloride Flush 3 ML SYRINGE IVFLUSH ×3 (01:18→16:23)
[2022-02-06 04:00] VITALS: BP 124/72; PULSE 105; RESP 15; TEMP 36.5; O2SAT 99
[2022-02-06] MEDS: Omeprazole 20 MG CAPSULE.DR PO (05:53)
[2022-02-06] MEDS: Albumin Human 25 % 100 ML IV ×3 (05:57→17:42)
[2022-02-06 06:19] LABS: Hematocrit 33.2 % (37.0-47.0); Hemoglobin 10.7 g/dl (12.0-16.0); Mean Corpuscular HGB Conc 32.2 g/dl (31.0-35.0); Mean Corpuscular Hemoglobin 28.9 pg (27.0-33.0); Mean Corpuscular Volume 89.7 fL (80.0-98.0); Mean Platelet Volume 10.5 fL (9.4-12.3); Red Cell Distribution Width 14.3 % (11.0-16.0); White Blood Count 3.1 X10*3/uL (4.8-10.8)
[2022-02-06 06:20] LABS: Platelet Count 88 X10*3/uL (160-400)
[2022-02-06 06:36] LABS: Alanine Aminotransferase 22 U/L (0-31); Albumin Level 3.7 g/dL (3.5-5.0); Alkaline Phosphatase 136 U/L (39-117); Anion Gap 16 (12-20); Aspartate Amino Transferase 29 U/L (5-31); Bilirubin Total 2.1 mg/dL (0.0-1.0); Blood Urea Nitrogen 9 mg/dL (9-16); Calcium 8.7 mg/dL (8.4-10.2); Carbon Dioxide 22 mmol/L (22-29); Chloride 108 mmol/L (96-108); Creatinine Clr Calc Pharmacy 69.2; Estimated Glomerular Filt Rate > 60; Glucose Random 102 mg/dL (60-115); Potassium 4.1 mmol/L (3.3-5.1); Sodium 142 mmol/L (135-145); Total Protein 5.9 g/dL (6.5-8.0)
[2022-02-06 07:32] VITALS: BP 123/70; PULSE 97; RESP 17; TEMP 36.5; O2SAT 95
[2022-02-06 07:50] LABS: C Reactive Protein 7.62 mg/dL (< or = 0.50)
--- NOTE | 2022-02-06 08:14 | CA_ITS ---
Transthoracic Echocardiogram Patient (Last, First, Middle): Praveena Douglass T Gender: Female Date of : 1955 Age: 66 Procedure Date: 02/06/2022 Procedure Type: Transthoracic E[place] [facility] [place]: 149.86 cm Weight: 63.5 kg BSA: 1.58 m2 Heart Rate: bpm BP: 123 / 70 mmHg Slp Teacher: DIDIER Referring MD: Diandra Kam MD Symptoms: dyspnea Study Quality: Adequate Conclusions: - Normal left ventricular size and systolic function. There is mildly increased left ventricular wall thickness. The visually estimated ejection fraction is between 60-65%. - Normal right ventricular cavity size and systolic function. - Both atria are normal in size. - There is mild dilatation of the ascending aorta measuring 3.40 cm. Findings Left Ventricle Normal left ventricular size and systolic function. There is mildly increased left ventricular wall thickness. The visually estimated ejection fraction is between 60-65%. There is no evidence of regional wall motion abnormalities. Diastolic function is normal for age. Right Ventricle Normal right ventricular cavity size and systolic function. Atria Both atria are normal in size. Aortic Valve Normal aortic valve structure and function. There is no aortic valve stenosis. There is no aortic valve regurgitation. Mitral Valve Normal mitral valve structure and function. There is no mitral valve regurgitation. There is no mitral valve stenosis. Pulmonic Valve The pulmonic valve is likely normal. Tricuspid Valve Normal tricuspid valve structure. There is trace tricuspid valve regurgitation. Normal right atrial pressure. There is no evidence of pulmonary hypertension. Great Vessels There is mild dilatation of the ascending aorta measuring 3.40 cm. Venous The inferior vena cava is normal in size and collapses greater than 50% with inspiration. Pericardium/Pleural There is no evidence of pericardial effusion. Prior Study Comparison No prior study available for comparison. Measurements 2D Linear Measurements IVSd: 1.01 0.6-0.9/0.6-1.0 cm LVIDd: 4.23 3.9-5.3/4.2-5.9 cm LVIDd Index: 2.68 2.4-3.2/2.2-3.1 cm/m2 LVIDs: 2.53 2.0-3.6 cm LVPWd: 1.03 0.7-1.1 cm LA Diam: 2.60 2.7-3.8/3.0-4.0 cm LAIDs Index: 1.65 1.5-2.3 cm/m2 LV Mass: 177.64 67-162/88-224 g LV Mass Index: 112.43 43-95/49-115 g/m2 LVOT Diam: 2.00 3.0+(-)1.3 cm 2D Systolic Function EF 4C: 64.20 >55% EF 2C: 61.40 >55% EF BiP: 62.50 >55% Mitral Valve MV Pk E: 0.77 MV PK A: 0.94 MV Decel Time: 189.00 E/A: 0.80 E'Lateral: 14.70 E'Medial: 9.25 E/E' Med: 8.30 E/E' Lat: 5.20 PHT: 55.00 MVA PHT: 4.00 Decel [place]: 4.04 Aortic Valve AoV Pk Jitendra: 1.46 AoV Mn Jitendra: 1.04 AoV VTI: 0.31 AoV Pk Grad: 9.00 Aov Mn Grad: 5.00 VERONICA Cont.VTI: 2.42 LVOT LVOT Pk Jitendra: 1.16 LVOT Mn Jitendra: 0.81 LVOT VTI: 0.24 LVOT Pk Grad: 5.00 LVOT Mn Grad: 3.00 LVOT Diam: 2.00 LVOT Area: 3.14 Diastolic Function MV Pk E: 0.77 MV Pk A: 0.94 E/A: 0.80 E'Medial: 9.25 E/E' Med: 8.30 E' Laterial: 14.70 E/E' Lat: 5.20 Right Ventricle TAPSE (mm): 21.50 TVS' Jitendra: 16.00 Tricuspid Valve TR Pk Jitendra: 2.82 TR Pk Grad: 32.00 RA Press: 8.00 RVSP: 35.00 Great Vessels Aorta Sinus of Valsalva: 3.07 2.0-3.[address] [place]: 2.71 1.7-3.4 cm Ao Asc: 3.40 2.1-3.4 cm Updated in Other Vendor System with Status of Final Donell Sparks MD electronically signed on 02/07/2022 3:21:05 PM with status of Final
[2022-02-06] MEDS: URSODIOL 500 MG 1 EACH PO ×2 (08:16→21:05)
[2022-02-06] MEDS: Tacrolimus 0.5 MG CAPSULE PO ×2 (08:17→21:06)
[2022-02-06] MEDS: Morphine Sulfate 2 MG/ML CARTRIDGE IVPUSH (08:17)
[2022-02-06] MEDS: Cholecalciferol (Vitamin D3) 25 MCG TABLET PO (08:18)
[2022-02-06] MEDS: Escitalopram Oxalate 20 MG TABLET PO (08:18)
--- NOTE | 2022-02-06 08:33 | P.CDIC_ITS ---
CDI Concurrent Query Documentation Clarification: PHYSICIAN'S DOCUMENTATION REQUEST Date of Query: 02/06/22 0834 Patient Name: Praveena Douglass Admit Date: 02/03/22 Dear Doctor, A review of the medical record indicates additional documentation may be needed. Please review below and update the documentation accordingly. Clinical Indicators: The diagnosis of CHF was documented on 02/03/22 but is not consistently noted in subsequent documentation. Risk Factors/Clinical Indicators/Treatments BNP 18 no lower extremity edema per MD notes no diuretic therapy Please clarify the following: * CHF was present on admission and is now resolved * CHF was present on admission and is still being monitored, evaluated, or treated * CHF was ruled out * CHF is still a likely, suspected, probable diagnosis * Other (please specify) * Unable to determine Use of terms such as suspected, likely, concern for, or probable (associated with a specific diagnosis that is being evaluated, monitored, or treated as if it exists) are acceptable and can be coded in the inpatient setting, when documented at the time of discharge. Thank you, Catherine Caal RN Extension: [phone] Please use your independent medical judgment in providing your response. THIS QUERY IS PART OF THE PERMANENT MEDICAL RECORD Provider Response: Other Other Diagnosis: no CHF
--- NOTE | 2022-02-06 08:37 | P.CDIC_ITS ---
CDI Concurrent Query Documentation Clarification: PHYSICIAN'S DOCUMENTATION REQUEST Date of Query: 02/06/22 0838 Patient Name: Praveena Douglass Admit Date: 02/03/22 Dear Doctor, A review of the medical record indicates additional documentation may be needed. Please review below and update the documentation accordingly. Risk Factors/Clinical Indicators/Treatments Albumin on 02/03/22: 3.4 IV Albumin Q6H ordered Based on the above, could you clarify in the Progress Notes the appropriate diagnosis, if significant, that supports the above abnormalities and additional evaluation, monitoring, and/or treatment rendered: * Labs indicate a diagnosis of (please specify) * Other (please specify) * Unable to determine Use of terms such as suspected, likely, concern for, or probable (associated with a specific diagnosis that is being evaluated, monitored, or treated as if it exists) are acceptable and can be coded in the inpatient setting, when documented at the time of discharge. Thank you, Catherine Caal RN Extension: [phone] Please use your independent medical judgment in providing your response. THIS QUERY IS PART OF THE PERMANENT MEDICAL RECORD Provider Response: Other Other Diagnosis: SBP
--- NOTE | 2022-02-06 10:13 | PM.EVENT ---
Event Note Date of Service: 02/06/22 Event Note: I called [facility] to touch base about the patient. She has actually being seeing a PA there, not an MD so I asked to speak to an MD, they will call me back later. My main question would be about discontinuing the tacrolimus for short while.
--- NOTE | 2022-02-06 10:44 | HO.PM.IMPN ---
Subjective Subjective Date of Service: 02/06/22 Interval History: Abd pain + distension improved Dyspneic with ambulation Review of Systems Review of Systems: Yes all other systems are reviewed and are negative Physical Exam Vital Signs: Vital Signs: Last Vital Signs Temp 97.7 F 02/06/22 07:32 Pulse 97 02/06/22 07:32 Resp 17 02/06/22 07:32 BP 123/70 02/06/22 07:32 Pulse Ox 95 02/06/22 07:32 O2 Del Method 02/06/22 07:32 BMI result Body Mass Index 28.3 Gen: in no acute distress HEENT: sclera anicteric, moist mucus membranes Neck: supple Lungs: diminished bilaterally Heart: regular rate and rhythm, no murmurs Abd: decreased distension, bulging flanks, paracentesis sites without bleeding Ext: no edema Skin: warm/well-perfused Neuro: alert and oriented x3, no focal findings Psych: appropriate affect Objective Data Active Medications Acetaminophen (Acetaminophen 325 Mg Tablet) 650 mg PO Q12H PRN PRN Reason: Pain, Mild (Pain Scale 1-3) Calcium Carbonate (Calcium Carbonate 750 Mg Tab.Chew) 750 mg PO QID PRN PRN Reason: Indigestion Docusate Sodium (Docusate Sodium 100 Mg Capsule) 100 mg PO DAILY PRN PRN Reason: Constipation Escitalopram Oxalate (Escitalopram Oxalate 20 Mg Tablet) 20 mg PO DAILY [facility] Last Admin: 02/06/22 08:18 Dose: 20 mg Documented By: JERRY Gabapentin (Gabapentin 300 Mg Capsule) 300 mg PO BEDTIME [facility] Last Admin: 02/05/22 20:40 Dose: 300 mg Documented By: DARYL Heparin Sodium (Porcine) (Heparin Sodium,Porcine 5,000 Unit/Ml Vial) 5,000 unit SUBCUT Q12H [facility] Last Admin: 02/06/22 00:36 Dose: 5,000 unit Documented By: DARYL Albumin Human (Kedbumin 25 %) 100 mls @ 100 mls/hr IV Q6H [facility] Stop: 02/06/22 17:59 Last Infusion: 02/06/22 07:11 Dose: 0 mls/hr Documented By: JERRY Meropenem 1 gm/ Sodium (Chloride) 100 mls @ 200 mls/hr IV Q8H [facility] Last Infusion: 02/06/22 09:01 Dose: 0 mls/hr Documented By: JERRY Lidocaine (Lidocaine 4 % Patch Adh..Patch) 1 patch TRANSDERMA DAILY PRN PRN Reason: Pain Last Admin: 02/04/22 15:38 Dose: 1 patch Documented By: REYNA Morphine Sulfate (Morphine Sulfate 2 Mg/Ml Cartridge) 2 mg IVPUSH Q2H PRN; Protocol PRN Reason: qamar pain Last Admin: 02/06/22 08:17 Dose: 2 mg Documented By: JERRY Pt Own (Colesevelam (625 Mg Tablet)) 1,250 mg PO BID [facility] Last Admin: 02/06/22 08:16 Dose: 1,250 mg Documented By: JERRY Pt Own (Ursodiol 500 (Mg Tablet)) 1 tab PO BID [facility] Last Admin: 02/06/22 08:16 Dose: 1 tab Documented By: JERRY Omeprazole (Omeprazole 20 Mg Capsule.Dr) 20 mg PO DAILY@0630 [facility] Last Admin: 02/06/22 05:53 Dose: 20 mg Documented By: DARYL Ondansetron HCl (Ondansetron Hcl 4 Mg/2 Ml Vial) 4 mg IVPUSH Q8H PRN PRN Reason: Nausea and Vomiting Oxycodone HCl (Oxycodone Hcl Immed Release 5 Mg Tablet) 5 mg PO Q4H PRN PRN Reason: moderato pain Last Admin: 02/04/22 20:19 Dose: 5 mg Documented By: REYNA Pharmacy Consult (Consult Rx Perform Med Rec) 1 each MISCELLANE ONCE PRN PRN Reason: Consult order Sodium Chloride (0.9 % Sodium Chloride Flush 3 Ml Syringe) 3 ml IVFLUSH QSHIFT [facility] Last Admin: 02/06/22 08:15 Dose: 3 ml Documented By: JERRY Tacrolimus (Tacrolimus 0.5 Mg Capsule) 0.5 mg PO BID [facility] Last Admin: 02/06/22 08:17 Dose: 0.5 mg Documented By: JERRY Vitamin D (Cholecalciferol (Vitamin D3) 25 Mcg Tablet) 25 mcg PO DAILY [facility] Last Admin: 02/06/22 08:18 Dose: 25 mcg Documented By: JERRY Labs CBC & Chem 7: 02/06/22 06:00 02/06/22 06:00 Labs: Laboratory Results - last 24 hr 02/06/22 02/06/22 06:00 06:00 MCV 89.7 MCH 28.9 MCHC 32.2 RDW 14.3 Plt Count 88 L D MPV 10.5 Absolute Nucleated RBC 0.000 Nucleated RBC % (auto) 0.0 Anion Gap 16 Estim Creat Clear Calc 69.2 Estimated GFR > 60 Random Glucose 102 Calcium 8.7 Total Bilirubin 2.1 H AST 29 ALT 22 Alkaline Phosphatase 136 H C-Reactive Protein 7.62 H Total Protein 5.9 L Albumin 3.7 Microbiology Microbiology Results: Microbiology 02/04/22 12:59 Gram Stain - Final Ascites Fluid Anaerobic Culture - Preliminary No growth to date. Body Fluid Culture - Final No growth after 2 days 02/03/22 21:15 Blood Culture - Preliminary Blood - Venous No growth after 48 hours. 02/03/22 20:48 Blood Culture - Preliminary Blood - Venous No growth after 48 hours. Assessment and Plan (1) SBP (spontaneous bacterial peritonitis): Status: Acute Plan d#3 66yo F with PBC s/p liver transplant in 2015, sent in to hospital by her aml analyst for management of SBP # SBP/CNNA - bedside paracentesis done 02/04/22; PMNs increased from 300 on outpt tap to 645. was treated as outpt with ciprofloxacin. ABX broadened from ceftriaxone to meropenem 02/04/22. follow fluid cultures [routine, fungal, AFB] + ADA + pathology. per GI repeat tap today to see if PMN count has improved. - got albumin 1.5 g/kg on d#1 then 1 g/kg on d#3 for prevention of HRS; SCr normal # cirrhosis - MELD 14, GI to discuss with her transplant team at [facility] # dyspnea - CXR, TTE # liver transplant - continue tacrolimus # PBC - continue ursodiol and colesevelam from home # mood disorder - continue escitalopram # VTE ppx: UFH In my clinical judgment, the patient requires continued inpatient hospitalization for the following reasons: IV ABX + IV albumin Quality Stroke Does the patient have a stroke diagnosis?: No VTE Prior VTE?: No VTE Risk Level:: Medical - moderate - high VTE Device Contraindication: Treatment Not Indicated VTE Drug Contraindication: N/A - Med Ordered
[2022-02-06 11:24] VITALS: BP 117/57; PULSE 92; RESP 16; TEMP 37; O2SAT 95
[2022-02-06 15:32] VITALS: BP 128/72; PULSE 99; RESP 18; TEMP 36; O2SAT 95
--- NOTE | 2022-02-06 16:46 | PM.GIPN ---
Subjective Subjective Date of Service: 02/06/22 Interval History: ongoing abdominal pain upper abdo incl LUQ appetite is fair no fever denies diarrhea no blood in stools Critical Care Time (minutes): 0 Physical Exam Vital Signs: Vital Signs: Last Vital Signs Temp 96.8 F 02/06/22 15:32 Pulse 99 02/06/22 15:32 Resp 18 02/06/22 15:32 BP 128/72 02/06/22 15:32 Pulse Ox 95 02/06/22 15:32 O2 Del Method 02/06/22 15:32 BMI result Body Mass Index 28.3 EXAM: GENERAL: The patient is well developed and nontoxic. VITAL SIGNS:see workflow HEENT: Nonicteric sclerae, PERRLA, EOMI. Oropharynx clear. Moist mucous membranes. Conjunctivae appear well perfused. No thyroid mass. CHEST: Chest wall is nontender. HEART: Regular rate and rhythm without murmurs. LUNGS: Clear to auscultation bilaterally. ABDOMEN: Soft, positive bowel sounds, tender, no organomegaly.no flank tenderness--some distention noted SKIN: No rash, no excessive bruising, petechiae, or purpura. NEUROLOGIC: Cranial nerves II-XII intact without motor/sensory deficit. Objective Data Labs CBC & Chem 7: 02/06/22 06:00 02/06/22 06:00 Labs: Laboratory Results - last 24 hr 02/06/22 02/06/22 06:00 06:00 WBC 3.1 L RBC 3.70 L Hgb 10.7 L Hct 33.2 L MCV 89.7 MCH 28.9 MCHC 32.2 RDW 14.3 Plt Count 88 L D MPV 10.5 Absolute Nucleated RBC 0.000 Nucleated RBC % (auto) 0.0 Sodium 142 Potassium 4.1 Chloride 108 Carbon Dioxide 22 Anion Gap 16 BUN 9 Creatinine 0.64 Estim Creat Clear Calc 69.2 Estimated GFR > 60 Random Glucose 102 Calcium 8.7 Total Bilirubin 2.1 H AST 29 ALT 22 Alkaline Phosphatase 136 H C-Reactive Protein 7.62 H Total Protein 5.9 L Albumin 3.7 Microbiology Microbiology Results: Microbiology 02/04/22 12:59 Ascites Fluid Fungal Identification - Preliminary No growth to date. 02/04/22 12:59 Ascites Fluid Gram Stain - Final 02/04/22 12:59 Ascites Fluid Anaerobic Culture - Preliminary No growth to date. 02/04/22 12:59 Ascites Fluid Body Fluid Culture - Final No growth after 2 days 02/03/22 21:15 Blood - Venous Blood Culture - Preliminary No growth after 48 hours. 02/03/22 20:48 Blood - Venous Blood Culture - Preliminary No growth after 48 hours. Procedures Date of Service Date of Service: 02/06/22 Progress Note: A&P Assessment and plan (1) SBP (spontaneous bacterial peritonitis): Status: Acute (2) Primary biliary cholangitis: Status: Acute Plan 1/ Culture neg SPB pos by cell count x 2 occasions with no growth thus far, still has abdominal pain, with rising CRP. Capsule study did reveal mild enteritis in distal small bowel uncertain if this is playing a role in her symptoms and rising CRP. PLAN: 1/ Repeat tap with cell count, hopefully will see reduction in cell count. If count down but rising CRP then will consider CTe and maybe trial of budesonide or mesalamine--if cell count still elevated and cultures neg then may need to change antibiotic approach and discuss with ID (might still need CTe to make sure the raised ascitic cell count is not from enteritis due to contiguous inflammation) 2/ check fecal calprotectin. 3/ I called [facility] clinic and they recommend continuing tacrolimus. Time Spent With Patient Time: Total time spent is greater than 50% in coordination of care (as documented) at patient's floor/unit and/or counseling patient: Quality Stroke Does the patient have a stroke diagnosis?: No VTE Prior VTE?: No VTE Risk Level:: Medical - moderate - high VTE Device Contraindication: Treatment Not Indicated VTE Drug Contraindication: N/A - Med Ordered
[2022-02-06 17:44] LABS: CDiff Gene PCR NEGATIVE (Negative)
[2022-02-06 19:20] VITALS: BP 129/74; PULSE 98; RESP 16; TEMP 36.2; O2SAT 98
[2022-02-06] MEDS: Gabapentin 300 MG CAPSULE PO (21:06)
--- NOTE | 2022-02-06 23:13 | PM.IDPN ---
Subjective Subjective Date of Service: 02/06/22 Critical Care Time (minutes): 15 Comment: She has left abdominal discomfort today No organisms have grown from abdomen culture Objective Data Labs CBC & Chem 7: 02/06/22 06:00 02/06/22 06:00 Labs: Laboratory Results - last 24 hr 02/04/22 02/06/22 02/06/22 06:41 06:00 06:00 WBC 3.1 L RBC 3.70 L Hgb 10.7 L Hct 33.2 L MCV 89.7 MCH 28.9 MCHC 32.2 RDW 14.3 Plt Count 88 L D MPV 10.5 Absolute Nucleated RBC 0.000 Nucleated RBC % (auto) 0.0 Smear Path Review Sodium 142 Potassium 4.1 Chloride 108 Carbon Dioxide 22 Anion Gap 16 BUN 9 Creatinine 0.64 Estim Creat Clear Calc 69.2 Estimated GFR > 60 Random Glucose 102 Calcium 8.7 Total Bilirubin 2.1 H AST 29 ALT 22 Alkaline Phosphatase 136 H C-Reactive Protein 7.62 H Total Protein 5.9 L Albumin 3.7 C. difficile Tox B Gene 02/06/22 16:32 WBC RBC Hgb Hct MCV MCH MCHC RDW Plt Count MPV Absolute Nucleated RBC Nucleated RBC % (auto) Smear Path Review Sodium Potassium Chloride Carbon Dioxide Anion Gap BUN Creatinine Estim Creat Clear Calc Estimated GFR Random Glucose Calcium Total Bilirubin AST ALT Alkaline Phosphatase C-Reactive Protein Total Protein Albumin C. difficile Tox B Gene NEGATIVE Microbiology Microbiology Results: Microbiology 02/04/22 12:59 Ascites Fluid Fungal Identification - Preliminary No growth to date. 02/04/22 12:59 Ascites Fluid Gram Stain - Final 02/04/22 12:59 Ascites Fluid Anaerobic Culture - Preliminary No growth to date. 02/04/22 12:59 Ascites Fluid Body Fluid Culture - Final No growth after 2 days 02/03/22 21:15 Blood - Venous Blood Culture - Preliminary No growth after 48 hours. 02/03/22 20:48 Blood - Venous Blood Culture - Preliminary No growth after 48 hours. Physical Exam Vital Signs: Vital Signs: Last Vital Signs Temp 97.1 F 02/06/22 19:20 Pulse 98 02/06/22 19:20 Resp 16 02/06/22 19:20 BP 129/74 02/06/22 19:20 Pulse Ox 98 02/06/22 19:20 O2 Del Method 02/06/22 19:20 BMI result Body Mass Index 28.3 Const: General: cooperative Resp: Effort & Inspection: normal respiratory effort Cardio: Rate: regular rate Rhythm: regular rhythm GI: Other: abdomen slight hazy redness LLQ,no vesicles Assessment and Plan Assessment and plan (1) Liver transplant recipient: Problem details: Recurrent cirrhosis, follows [facility] but not lately There is some concern over herpes zoster abdominal wall although no vesicles Search for ascitic fluid SBP organisms hasnt turned up anything Status: Acute Assessment and Plan: would give po Valtrex Watch for any pain symptoms Merem max seven days cover possible organisms Time Spent With Patient Time: Total time spent is greater than 50% in coordination of care (as documented) at patient's floor/unit and/or counseling patient:
[2022-02-06] MEDS: valACYclovir HCL 1,000 MG TABLET 1000 MG PO (23:55)
[2022-02-07] VITALS (7 sets, daily range): BP systolic 125–160; BP diastolic 58–81; PULSE 78–103; RESP 16–20; TEMP 36.7–37.1; O2SAT 94–98; BMI 29.6
[2022-02-07] MEDS: 0.9 % Sodium Chloride Flush 3 ML SYRINGE IVFLUSH ×3 (00:06→14:01)
[2022-02-07] MEDS: Omeprazole 20 MG CAPSULE.DR PO (06:21)
[2022-02-07 07:34] LABS: Hematocrit 32.6 % (37.0-47.0); Hemoglobin 10.3 g/dl (12.0-16.0); Mean Corpuscular HGB Conc 31.6 g/dl (31.0-35.0); Mean Corpuscular Hemoglobin 28.5 pg (27.0-33.0); Mean Corpuscular Volume 90.3 fL (80.0-98.0); Mean Platelet Volume 10.1 fL (9.4-12.3); Platelet Count 100 X10*3/uL (160-400); Red Blood Count 3.61 X10*6/uL (4.20-5.50); Red Cell Distribution Width 13.9 % (11.0-16.0); White Blood Count 2.9 X10*3/uL (4.8-10.8)
[2022-02-07] MEDS: Cholecalciferol (Vitamin D3) 25 MCG TABLET PO (08:20)
[2022-02-07] MEDS: Tacrolimus 0.5 MG CAPSULE PO ×2 (08:21→20:36)
[2022-02-07] MEDS: URSODIOL 500 MG 1 EACH PO ×2 (08:21→20:35)
[2022-02-07] MEDS: Escitalopram Oxalate 20 MG TABLET PO (08:21)
[2022-02-07 09:03] LABS: Adenovirus F 40/41 Not Detected (Not Detect.); Astrovirus Not Detected (Not Detect.); Campylobacter Not Detected (Not Detect.); Cryptosporidium Not Detected (Not Detect.); Cyclospora cayetanensis Not Detected (Not Detect.); E. coli EAEC Not Detected (Not Detect.); E. coli EPEC Not Detected (Not Detect.); E. coli ETEC Not Detected (Not Detect.); E. coli STEC Not Detected (Not Detect.); Entamoeba histolytica Not Detected (Not Detect.); Giardia lamblia Not Detected (Not Detect.); Norovirus GI/GII Not Detected (Not Detect.); Plesiomonas shigelloides Not Detected (Not Detect.); Salmonella Not Detected (Not Detect.); Shigella sp./EIEC Not Detected (Not Detect.); Vibrio Not Detected (Not Detect.); Vibrio Cholerae Not Detected (Not Detect.); Yersinia enterocolitica Not Detected (Not Detect.)
[2022-02-07 09:04] LABS: Rotavirus A Not Detected (Not Detect.); Sapovirus Not Detected (Not Detect.)
[2022-02-07 10:24] LABS: Anion Gap 13 (12-20); Blood Urea Nitrogen 8 mg/dL (9-16); C Reactive Protein 8.01 mg/dL (< or = 0.50); Calcium 9.1 mg/dL (8.4-10.2); Carbon Dioxide 22 mmol/L (22-29); Chloride 107 mmol/L (96-108); Creatinine Clr Calc Pharmacy 75.4; Estimated Glomerular Filt Rate > 60; Glucose Random 92 mg/dL (60-115); Potassium 3.7 mmol/L (3.3-5.1); Sodium 138 mmol/L (135-145)
[2022-02-07] MEDS: Heparin Sodium,Porcine 5,000 UNIT/ML VIAL 5000 UNIT SUBCUT (13:02)
[2022-02-07] MEDS: valACYclovir HCL 1,000 MG TABLET 1000 MG PO (13:02)
--- NOTE | 2022-02-07 13:38 | HE.PHANOTE ---
RE: meropenem Nursing called around 1145 on 02/07/22 to note that IV access was lost, but was currently being infused for the 0800 dose at that time, re-timed next dose for 2000
--- NOTE | 2022-02-07 14:01 | PC.NURSE ---
patient left for paracentesis at this time via bed with transport aid.
[2022-02-07] MEDS: Lidocaine HCl 1 % MPF 5 ML VIAL SUBCUT (14:40)
[2022-02-07 15:13] LABS: RBC Peritoneal Fluid 0.002 X10*6/uL
[2022-02-07 15:31] LABS: BF Shift QC OK YES
[2022-02-07 15:35] LABS: Lymphocyte Peritoneal Fl 19 %; Monocytes Peritoneal Fl 31 %; Neutrophils Peritoneal Fluid 50 %; Other Peritioneal Fl 22 %
--- NOTE | 2022-02-07 15:52 | PM.IDPN ---
Subjective Subjective Date of Service: 02/07/22 Critical Care Time (minutes): 15 Comment: patient some diarrhea getting another tap Objective Data Labs CBC & Chem 7: 02/07/22 06:41 02/07/22 06:41 Labs: Laboratory Results - last 24 hr 02/04/22 02/06/22 02/06/22 06:41 16:32 16:32 WBC RBC Hgb Hct MCV MCH MCHC RDW Plt Count MPV Absolute Nucleated RBC Nucleated RBC % (auto) Smear Path Review Sodium Potassium Chloride Carbon Dioxide Anion Gap BUN Creatinine Estim Creat Clear Calc Estimated GFR Random Glucose Calcium C-Reactive Protein Peritoneal WBC Peritoneal RBC Periton Neutrophils Periton Lymphocytes Peritoneal Monocytes Peritoneal Other Cells Stl C. cayetanensis PCR Not Detected Stool Rotavirus A PCR Not Detected Stl Adenov F PCR Not Detected Stool Astrovirus (PCR) Not Detected Stool Campylobacter PCR Not Detected Stool Cryptosporidium PCR Not Detected Stl Sh Tox Pr E STEC PCR Not Detected Stool E coli O157 PCR Not applicable Stl Enterotoxigenic E PCR Not Detected Stool EPEC (PCR) Not Detected Stool EAEC (PCR) Not Detected Stl E. histolytica PCR Not Detected Stool Giardia Lamblia PCR Not Detected Stl P. shigelloides PCR Not Detected Stool Salmonella PCR Not Detected Stool Sapovirus (PCR) Not Detected Stl Shigella/EIEC PCR Not Detected St Y.enterocolitica PCR Not Detected Stool Vibrio (PCR) Not Detected Stl Vibrio cholerae PCR Not Detected Stl Norovirus GI/GII PCR Not Detected C. difficile Tox B Gene NEGATIVE 02/07/22 02/07/22 02/07/22 06:41 06:41 14:25 WBC 2.9 L RBC 3.61 L Hgb 10.3 L Hct 32.6 L MCV 90.3 MCH 28.5 MCHC 31.6 RDW 13.9 Plt Count 100 L MPV 10.1 Absolute Nucleated RBC 0.000 Nucleated RBC % (auto) 0.0 Smear Path Review Sodium 138 Potassium 3.7 Chloride 107 Carbon Dioxide 22 Anion Gap 13 BUN 8 L Creatinine 0.60 Estim Creat Clear Calc 75.4 Estimated GFR > 60 Random Glucose 92 Calcium 9.1 C-Reactive Protein 8.01 H Peritoneal WBC 3.650 Peritoneal RBC 0.002 Periton Neutrophils 50 Periton Lymphocytes 19 Peritoneal Monocytes 31 Peritoneal Other Cells 22 Stl C. cayetanensis PCR Stool Rotavirus A PCR Stl Adenov F PCR Stool Astrovirus (PCR) Stool Campylobacter PCR Stool Cryptosporidium PCR Stl Sh Tox Pr E STEC PCR Stool E coli O157 PCR Stl Enterotoxigenic E PCR Stool EPEC (PCR) Stool EAEC (PCR) Stl E. histolytica PCR Stool Giardia Lamblia PCR Stl P. shigelloides PCR Stool Salmonella PCR Stool Sapovirus (PCR) Stl Shigella/EIEC PCR St Y.enterocolitica PCR Stool Vibrio (PCR) Stl Vibrio cholerae PCR Stl Norovirus GI/GII PCR C. difficile Tox B Gene Microbiology Microbiology Results: Microbiology 02/07/22 14:25 Ascites Fluid Gram Stain - Final 02/04/22 12:59 Ascites Fluid Gram Stain - Final 02/04/22 12:59 Ascites Fluid Anaerobic Culture - Preliminary No growth to date. 02/04/22 12:59 Ascites Fluid Body Fluid Culture - Final No growth after 2 days 02/04/22 12:59 Ascites Fluid Fungal Identification - Preliminary No growth to date. 02/03/22 21:15 Blood - Venous Blood Culture - Preliminary No growth after 48 hours. 02/03/22 20:48 Blood - Venous Blood Culture - Preliminary No growth after 48 hours. Physical Exam Vital Signs: Vital Signs: Last Vital Signs Temp 98.4 F 02/07/22 11:11 Pulse 93 02/07/22 11:11 Resp 16 02/07/22 11:11 BP 137/71 02/07/22 11:11 Pulse Ox 96 02/07/22 11:11 O2 Del Method 02/07/22 11:11 BMI result Body Mass Index 29.6 Const: General: cooperative Resp: Effort & Inspection: normal respiratory effort Cardio: Rate: regular rate Rhythm: regular rhythm GI: Palpation (GI): nontender (left upper abdomen) Assessment and Plan Assessment and plan (1) Ascites: Problem details: No skin lesions forming Can stop Valtrex Follow with GI Status: Acute Time Spent With Patient Time: Total time spent is greater than 50% in coordination of care (as documented) at patient's floor/unit and/or counseling patient:
[2022-02-07] MEDS: iohexoL 350 MG/ML 100 ML INFUS..BTL IV (16:00)
--- NOTE | 2022-02-07 16:11 | P.PNIM_ITS ---
Subjective Subjective Date of Service: 02/08/22 Interval History: Patient complaining of abdominal pain and loose watery nonbloody diarrhea that started last evening and still persist, denies associated fever, chills, tolerating diet, no nausea, no vomiting, no other acute issues overnight. 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 Anicteric sclera Neck no JVD. CVS regular rate rhythm, Respiratory lungs clear to auscultation, no respiratory distress, no wheeze, no rhonchi. Gastrointestinal abdomen soft, distended, bowel sounds audible,mid abd. tender to palpation, no guarding , no rigidity. Extremities no edema. Neuro nonfocal Skin no rash Psych appropriate affect Objective Data Active Medications Acetaminophen (Acetaminophen 325 Mg Tablet) 650 mg PO Q12H PRN PRN Reason: Pain, Mild (Pain Scale 1-3) Calcium Carbonate (Calcium Carbonate 750 Mg Tab.Chew) 750 mg PO QID PRN PRN Reason: Indigestion Docusate Sodium (Docusate Sodium 100 Mg Capsule) 100 mg PO DAILY PRN PRN Reason: Constipation Escitalopram Oxalate (Escitalopram Oxalate 20 Mg Tablet) 20 mg PO DAILY [facility] Last Admin: 02/07/22 08:21 Dose: 20 mg Documented By: IKE Gabapentin (Gabapentin 300 Mg Capsule) 300 mg PO BEDTIME [facility] Last Admin: 02/06/22 21:06 Dose: 300 mg Documented By: DARYL Heparin Sodium (Porcine) (Heparin Sodium,Porcine 5,000 Unit/Ml Vial) 5,000 unit SUBCUT Q12H [facility] Last Admin: 02/07/22 13:02 Dose: 5,000 unit Documented By: BOBBY Meropenem 1 gm/ Sodium (Chloride) 100 mls @ 200 mls/hr IV Q8H [facility] Lidocaine (Lidocaine 4 % Patch Adh..Patch) 1 patch TRANSDERMA DAILY PRN PRN Reason: Pain Last Admin: 02/04/22 15:38 Dose: 1 patch Documented By: REYNA Morphine Sulfate (Morphine Sulfate 2 Mg/Ml Cartridge) 2 mg IVPUSH Q2H PRN; Protocol PRN Reason: qamar pain Last Admin: 02/06/22 08:17 Dose: 2 mg Documented By: JERRY Pt Own (Colesevelam (625 Mg Tablet)) 1,250 mg PO BID [facility] Last Admin: 02/07/22 08:20 Dose: 1,250 mg Documented By: IKE Pt Own (Ursodiol 500 (Mg Tablet)) 1 tab PO BID [facility] Last Admin: 02/07/22 08:21 Dose: 1 tab Documented By: IKE Omeprazole (Omeprazole 20 Mg Capsule.Dr) 20 mg PO DAILY@0630 [facility] Last Admin: 02/07/22 06:21 Dose: 20 mg Documented By: DARYL Ondansetron HCl (Ondansetron Hcl 4 Mg/2 Ml Vial) 4 mg IVPUSH Q8H PRN PRN Reason: Nausea and Vomiting Oxycodone HCl (Oxycodone Hcl Immed Release 5 Mg Tablet) 5 mg PO Q4H PRN PRN Reason: moderato pain Last Admin: 02/04/22 20:19 Dose: 5 mg Documented By: REYNA Pharmacy Consult (Consult Rx Perform Med Rec) 1 each MISCELLANE ONCE PRN PRN Reason: Consult order Sodium Chloride (0.9 % Sodium Chloride Flush 3 Ml Syringe) 3 ml IVFLUSH QSHIFT [facility] Last Admin: 02/07/22 14:01 Dose: 3 ml Documented By: BOBBY Tacrolimus (Tacrolimus 0.5 Mg Capsule) 0.5 mg PO BID [facility] Last Admin: 02/07/22 08:21 Dose: 0.5 mg Documented By: IKE Vitamin D (Cholecalciferol (Vitamin D3) 25 Mcg Tablet) 25 mcg PO DAILY [facility] Last Admin: 02/07/22 08:20 Dose: 25 mcg Documented By: IKE Labs CBC & Chem 7: 02/07/22 06:41 02/07/22 06:41 Labs: Laboratory Results - last 24 hr 02/04/22 02/06/22 02/06/22 06:41 16:32 16:32 MCV MCH MCHC RDW Plt Count MPV Absolute Nucleated RBC Nucleated RBC % (auto) Smear Path Review Anion Gap Estim Creat Clear Calc Estimated GFR Random Glucose Calcium C-Reactive Protein Peritoneal WBC Peritoneal RBC Periton Neutrophils Periton Lymphocytes Peritoneal Monocytes Peritoneal Other Cells Stl C. cayetanensis PCR Not Detected Stool Rotavirus A PCR Not Detected Stl Adenov F PCR Not Detected Stool Astrovirus (PCR) Not Detected Stool Campylobacter PCR Not Detected Stool Cryptosporidium PCR Not Detected Stl Sh Tox Pr E STEC PCR Not Detected Stool E coli O157 PCR Not applicable Stl Enterotoxigenic E PCR Not Detected Stool EPEC (PCR) Not Detected Stool EAEC (PCR) Not Detected Stl E. histolytica PCR Not Detected Stool Giardia Lamblia PCR Not Detected Stl P. shigelloides PCR Not Detected Stool Salmonella PCR Not Detected Stool Sapovirus (PCR) Not Detected Stl Shigella/EIEC PCR Not Detected St Y.enterocolitica PCR Not Detected Stool Vibrio (PCR) Not Detected Stl Vibrio cholerae PCR Not Detected Stl Norovirus GI/GII PCR Not Detected C. difficile Tox B Gene NEGATIVE 02/07/22 02/07/22 02/07/22 06:41 06:41 14:25 MCV 90.3 MCH 28.5 MCHC 31.6 RDW 13.9 Plt Count 100 L MPV 10.1 Absolute Nucleated RBC 0.000 Nucleated RBC % (auto) 0.0 Smear Path Review Anion Gap 13 Estim Creat Clear Calc 75.4 Estimated GFR > 60 Random Glucose 92 Calcium 9.1 C-Reactive Protein 8.01 H Peritoneal WBC 3.650 Peritoneal RBC 0.002 Periton Neutrophils 50 Periton Lymphocytes 19 Peritoneal Monocytes 31 Peritoneal Other Cells 22 Stl C. cayetanensis PCR Stool Rotavirus A PCR Stl Adenov F PCR Stool Astrovirus (PCR) Stool Campylobacter PCR Stool Cryptosporidium PCR Stl Sh Tox Pr E STEC PCR Stool E coli O157 PCR Stl Enterotoxigenic E PCR Stool EPEC (PCR) Stool EAEC (PCR) Stl E. histolytica PCR Stool Giardia Lamblia PCR Stl P. shigelloides PCR Stool Salmonella PCR Stool Sapovirus (PCR) Stl Shigella/EIEC PCR St Y.enterocolitica PCR Stool Vibrio (PCR) Stl Vibrio cholerae PCR Stl Norovirus GI/GII PCR C. difficile Tox B Gene Microbiology Microbiology Results: Microbiology 02/07/22 14:25 Gram Stain - Final Ascites Fluid 02/04/22 12:59 Gram Stain - Final Ascites Fluid Anaerobic Culture - Preliminary No growth to date. Body Fluid Culture - Final No growth after 2 days 02/04/22 12:59 Fungal Identification - Preliminary Ascites Fluid No growth to date. Assessment and Plan (1) SBP (spontaneous bacterial peritonitis): Status: Acute Plan d#3 66yo F with PBC s/p liver transplant in 2016, sent in to hospital by her ammonia operator for management of SBP # SBP/CNNA - bedside paracentesis done 02/04/22; wbc increased from outpt tap ,was treated as outpt with ciprofloxacin. ABX broadened from ceftriaxone to meropenem 02/04/22. fluid cultures [routine, fungal, AFB] pend / pathology from 01/31 showed no malignant cells. Underwent repeat tap today 02/07/22 , 60 mL of clear yellow serous fluid was removed noted to have worsening wbc /pmn got albumin 1.5 g/kg on d#1 then 1 g/kg on d#3 for prevention of HRS; SCr normal Noted to have worsening of CRP now 8.01 up from 4.[address] enterography ordered to rule out ileitis as per discussion with Dr. Pompa Since noted to have both elevated cell count and CRP will discuss with Infectious Disease regarding antibiotic coverage # diarrhea started with loose watery diarrhea since last night associated with abdominal pain, stool for C diff negative, Dr. Galloway recommend to start Flagyl # cirrhosis - MELD 14, Dr. Paul spoke with [facility] and they recommend to continue tacrolimis # dyspnea improved unremarkable chest x-ray and an echocardiogram showed EF 60- 65% both atria normal in size, no regional wall motion abnormality and normal diastolic function # liver transplant - continue tacrolimus # PBC - continue ursodiol and colesevelam from home # mood disorder - continue escitalopram # VTE ppx: UFH In my clinical judgment, the patient requires continued inpatient hospitalization for the following reasons: IV ABX + IV albumin Quality Stroke Does the patient have a stroke diagnosis?: No VTE Prior VTE?: No VTE Risk Level:: Medical - moderate - high VTE Device Contraindication: Treatment Not Indicated VTE Drug Contraindication: N/A - Med Ordered
[2022-02-07] MEDS: metroNIDAZOLE 500 MG TABLET PO (18:21)
[2022-02-07] MEDS: Gabapentin 300 MG CAPSULE PO (20:36)
[2022-02-08] MEDS: Heparin Sodium,Porcine 5,000 UNIT/ML VIAL 5000 UNIT SUBCUT ×3 (00:23→22:37)
[2022-02-08] MEDS: metroNIDAZOLE 500 MG TABLET PO ×2 (00:24→07:22)
[2022-02-08] MEDS: 0.9 % Sodium Chloride Flush 3 ML SYRINGE IVFLUSH ×4 (00:28→22:37)
[2022-02-08 03:37] VITALS: BP 128/61; PULSE 87; RESP 18; TEMP 37.3; O2SAT 97
[2022-02-08] MEDS: Omeprazole 20 MG CAPSULE.DR PO (05:01)
[2022-02-08 05:42] VITALS: BMI 29.9
[2022-02-08 07:18] VITALS: BP 120/64; PULSE 83; RESP 16; TEMP 36.1; O2SAT 96
[2022-02-08] MEDS: Cholecalciferol (Vitamin D3) 25 MCG TABLET PO (07:20)
[2022-02-08] MEDS: Escitalopram Oxalate 20 MG TABLET PO (07:20)
[2022-02-08] MEDS: URSODIOL 500 MG 1 EACH PO ×2 (07:21→19:55)
[2022-02-08] MEDS: Tacrolimus 0.5 MG CAPSULE PO ×2 (07:21→19:56)
[2022-02-08 11:09] VITALS: BP 124/81; PULSE 99; RESP 16; TEMP 36.3; O2SAT 97
--- NOTE | 2022-02-08 13:26 | HO.PM.IMPN ---
Subjective Subjective Date of Service: 02/09/22 Interval History: Overall feeling better diarrhea slowing down, non bloody brown liquidy , complaining of abdominal pain at site of paracentesis radiating from left mid abdomen towards right, tolerating diet with no nausea and vomiting, no fevers no chills. Review of Systems CVS no chest pain no palpitation [employer] no headache no dizziness Respiratory no shortness of breath Review of Systems: Yes all other systems are reviewed and are negative Physical Exam Vital Signs: Vital Signs: Last Vital Signs Temp 97.4 F 02/08/22 11:09 Pulse 99 02/08/22 11:09 Resp 16 02/08/22 11:09 BP 124/81 02/08/22 11:09 Pulse Ox 97 02/08/22 11:09 O2 Del Method 02/08/22 11:09 BMI result Body Mass Index 29.9 Const: Other: General awake aler t x3, resting comf ortably in no acut e distress, nontox ic-appearing.? Ani cteric sclera Neck ? no JVD. CVS? reg ular rate rhythm, Respiratory lungs clear to auscultat ion, no respirator y distress, no whe kimani, no rhonchi. G astrointestinal ab domen soft, bowel sounds audible,mil d mid abd. tender to palpation, no g uarding , no rigid ity. Extremities n o? edema. Neuro no nfocal Skin no alexandru h Psych appropriat e affect Objective Data Active Medications Acetaminophen (Acetaminophen 325 Mg Tablet) 650 mg PO Q12H PRN PRN Reason: Pain, Mild (Pain Scale 1-3) Calcium Carbonate (Calcium Carbonate 750 Mg Tab.Chew) 750 mg PO QID PRN PRN Reason: Indigestion Docusate Sodium (Docusate Sodium 100 Mg Capsule) 100 mg PO DAILY PRN PRN Reason: Constipation Escitalopram Oxalate (Escitalopram Oxalate 20 Mg Tablet) 20 mg PO DAILY [facility] Last Admin: 02/08/22 07:20 Dose: 20 mg Documented By: PAULY Gabapentin (Gabapentin 300 Mg Capsule) 300 mg PO BEDTIME [facility] Last Admin: 02/07/22 20:36 Dose: 300 mg Documented By: ANEGLIC Heparin Sodium (Porcine) (Heparin Sodium,Porcine 5,000 Unit/Ml Vial) 5,000 unit SUBCUT Q12H [facility] Last Admin: 02/08/22 12:54 Dose: 5,000 unit Documented By: PAULY Meropenem 1 gm/ Sodium (Chloride) 100 mls @ 200 mls/hr IV Q8H [facility] Last Admin: 02/08/22 12:54 Dose: 200 mls/hr Documented By: PAULY Lidocaine (Lidocaine 4 % Patch Adh..Patch) 1 patch TRANSDERMA DAILY PRN PRN Reason: Pain Last Admin: 02/04/22 15:38 Dose: 1 patch Documented By: REYNA Metronidazole (Metronidazole 500 Mg Tablet) 500 mg PO Q8H [facility] Last Admin: 02/08/22 07:22 Dose: 500 mg Documented By: PAULY Morphine Sulfate (Morphine Sulfate 2 Mg/Ml Cartridge) 2 mg IVPUSH Q2H PRN; Protocol PRN Reason: qamar pain Last Admin: 02/06/22 08:17 Dose: 2 mg Documented By: JERRY Pt Own (Colesevelam (625 Mg Tablet)) 1,250 mg PO BID [facility] Last Admin: 02/08/22 07:21 Dose: 1,250 mg Documented By: PAULY Pt Own (Ursodiol 500 (Mg Tablet)) 1 tab PO BID [facility] Last Admin: 02/08/22 07:21 Dose: 1 tab Documented By: PAULY Omeprazole (Omeprazole 20 Mg Capsule.Dr) 20 mg PO DAILY@0630 [facility] Last Admin: 02/08/22 05:01 Dose: 20 mg Documented By: VEENA Ondansetron HCl (Ondansetron Hcl 4 Mg/2 Ml Vial) 4 mg IVPUSH Q8H PRN PRN Reason: Nausea and Vomiting Oxycodone HCl (Oxycodone Hcl Immed Release 5 Mg Tablet) 5 mg PO Q4H PRN PRN Reason: moderato pain Last Admin: 02/04/22 20:19 Dose: 5 mg Documented By: REYNA Pharmacy Consult (Consult Rx Perform Med Rec) 1 each MISCELLANE ONCE PRN PRN Reason: Consult order Sodium Chloride (0.9 % Sodium Chloride Flush 3 Ml Syringe) 3 ml IVFLUSH QSHIFT [facility] Last Admin: 02/08/22 05:01 Dose: 3 ml Documented By: VEENA Tacrolimus (Tacrolimus 0.5 Mg Capsule) 0.5 mg PO BID [facility] Last Admin: 02/08/22 07:21 Dose: 0.5 mg Documented By: PAULY Vitamin D (Cholecalciferol (Vitamin D3) 25 Mcg Tablet) 25 mcg PO DAILY [facility] Last Admin: 02/08/22 07:20 Dose: 25 mcg Documented By: PAULY Labs CBC & Chem 7: 02/07/22 06:41 02/07/22 06:41 Labs: Laboratory Results - last 24 hr 02/07/22 14:25 Peritoneal WBC 3.650 Peritoneal RBC 0.002 Periton Neutrophils 50 Periton Lymphocytes 19 Peritoneal Monocytes 31 Peritoneal Other Cells 22 Microbiology Microbiology Results: Microbiology 02/07/22 14:25 Gram Stain - Final Ascites Fluid Anaerobic Culture - Preliminary No growth to date. Body Fluid Culture - Preliminary No growth to date. Assessment and Plan (1) SBP (spontaneous bacterial peritonitis): Status: Acute Plan d#3 66yo F with PBC s/p liver transplant in 2015, sent in to hospital by her payroll machine operator for management of SBP # SBP/CNNA - bedside paracentesis done 02/04/22; wbc increased from outpt tap ,was treated as outpt with ciprofloxacin. ABX broadened from ceftriaxone to meropenem 02/04/22. fluid cultures [routine, fungal preliminary no growth and acid-fast bacilli culture pending / pathology from 01/31 showed no malignant cells. Underwent repeat tap 02/07/22 , 60 mL of clear yellow serous fluid was removed noted to have worsening wbc /pmn got albumin 1.5 g/kg on d#1 then 1 g/kg on d#3 for prevention of HRS; SCr normal Noted to have worsening of CRP now 8.01 up from 4.[address] enterography done report pending to rule out ileitis Case discussed with ID Dr. Guerra she recommend to discontinue antibiotics both Flagyl and IV meropenem since cultures are negative Will discuss further treatment plan with Dr. Galloway # diarrhea slowing down C diff negative on by mouth Flagyl day 2 # cirrhosis - MELD 14, Dr. Paul spoke with [facility] and they recommend to continue tacrolimis # dyspnea improved unremarkable chest x-ray and an echocardiogram showed EF 60-65% both atria normal in size, no regional wall motion abnormality and normal diastolic function # liver transplant - continue tacrolimus # PBC - continue ursodiol and colesevelam from home # mood disorder - continue escitalopram # VTE ppx: UFH In my clinical judgment, the patient requires continued inpatient hospitalization for the following reasons: IV ABX Quality Stroke Does the patient have a stroke diagnosis?: No VTE Prior VTE?: No VTE Risk Level:: Medical - moderate - high VTE Device Contraindication: Treatment Not Indicated VTE Drug Contraindication: N/A - Med Ordered
[2022-02-08] MEDS: metroNIDAZOLE/NS 500 MG/100 ML PIGGYBACK 100 MG IV ×2 (14:31→22:37)
--- NOTE | 2022-02-08 14:31 | MHC.CM.PN ---
per rounds pt needs to be seen by id prior to dc plan remains home no servceis
[2022-02-08 15:15] VITALS: BP 127/69; PULSE 78; RESP 18; TEMP 36.8; O2SAT 97
[2022-02-08 19:56] VITALS: BP 144/81; PULSE 98; RESP 18; TEMP 37; O2SAT 94
[2022-02-08] MEDS: Gabapentin 300 MG CAPSULE PO (19:56)
--- NOTE | 2022-02-08 20:21 | PM.GIPN ---
Subjective Subjective Date of Service: 02/08/22 Interval History: stable some abdominal pain no fever diarrhea with prep for CTe no growth on cultures thus far, CRP keeps rising Critical Care Time (minutes): 0 Physical Exam Vital Signs: Vital Signs: Last Vital Signs Temp 98.6 F 02/08/22 19:56 Pulse 98 02/08/22 19:56 Resp 18 02/08/22 19:56 BP 144/81 H 02/08/22 19:56 Pulse Ox 94 02/08/22 19:56 O2 Del Method 02/08/22 19:56 BMI result Body Mass Index 29.9 EXAM: GENERAL: The patient is well developed and nontoxic. VITAL SIGNS:see workflow HEENT: Nonicteric sclerae, PERRLA, EOMI. Oropharynx clear. Moist mucous membranes. Conjunctivae appear well perfused. No thyroid mass. CHEST: Chest wall is nontender. HEART: Regular rate and rhythm without murmurs. LUNGS: Clear to auscultation bilaterally. ABDOMEN: Soft, positive bowel sounds, tender mid abdomen, no organomegaly.no flank tenderness-scars noted SKIN: No rash, no excessive bruising, petechiae, or purpura. NEUROLOGIC: Cranial nerves II-XII intact without motor/sensory deficit. Objective Data Labs CBC & Chem 7: 02/07/22 06:41 02/07/22 06:41 Microbiology Microbiology Results: Microbiology 02/04/22 12:59 Ascites Fluid Gram Stain - Final 02/04/22 12:59 Ascites Fluid Anaerobic Culture - Preliminary No growth to date. 02/04/22 12:59 Ascites Fluid Body Fluid Culture - Final No growth after 2 days 02/07/22 14:25 Ascites Fluid Gram Stain - Final 02/07/22 14:25 Ascites Fluid Anaerobic Culture - Preliminary No growth to date. 02/07/22 14:25 Ascites Fluid Body Fluid Culture - Preliminary No growth to date. 02/04/22 12:59 Ascites Fluid Fungal Identification - Preliminary No growth to date. 02/03/22 21:15 Blood - Venous Blood Culture - Preliminary No growth after 48 hours. 02/03/22 20:48 Blood - Venous Blood Culture - Preliminary No growth after 48 hours. Procedures Date of Service Date of Service: 02/08/22 Progress Note: A&P Assessment and plan (1) SBP (spontaneous bacterial peritonitis): Status: Acute (2) Ascites: Status: Acute Plan 1/ Persistent white cell count is ascitic fluid with rising CRP, inspite of ABX. growth on fluid for TB, fungus and bacteria has been negative. I suspect she may have crohsn disease with spill over of cells into the ascitic fluid given findings on prior CTe and capsule endoscopy. De nichelle IBD in post trnasplant patients tashia those on tacrolimus is well recognized (Ref: Freddy et al, A review of IBD in the setiing of liver transplant. Gastro and hep, Dec 2013) PLAN 1/ Await formal report from radiology, but consider treatment with short course of steroid and pentasa vs budesonide. Time Spent With Patient Time: Total time spent is greater than 50% in coordination of care (as documented) at patient's floor/unit and/or counseling patient: Quality Stroke Does the patient have a stroke diagnosis?: No VTE Prior VTE?: No VTE Risk Level:: Medical - moderate - high VTE Device Contraindication: Treatment Not Indicated VTE Drug Contraindication: N/A - Med Ordered
[2022-02-09 00:01] VITALS: BP 120/75; PULSE 91; RESP 14; TEMP 37.6; O2SAT 96
[2022-02-09 03:38] VITALS: BP 134/67; PULSE 98; RESP 14; TEMP 37.4; O2SAT 93
[2022-02-09] MEDS: ondansetron HCL 4 MG/2 ML VIAL IVPUSH (05:57)
[2022-02-09] MEDS: metroNIDAZOLE/NS 500 MG/100 ML PIGGYBACK 100 MG IV ×2 (05:58→14:07)
[2022-02-09] MEDS: Omeprazole 20 MG CAPSULE.DR PO (05:58)
[2022-02-09] MEDS: oxyCODONE HCl Immed Release 5 MG TABLET PO (05:58)
[2022-02-09 06:00] VITALS: BMI 29.3
[2022-02-09 07:13] VITALS: BP 113/59; PULSE 86; RESP 16; TEMP 36.5; O2SAT 95
[2022-02-09] MEDS: Heparin Sodium,Porcine 5,000 UNIT/ML VIAL 5000 UNIT SUBCUT (09:31)
[2022-02-09] MEDS: Cholecalciferol (Vitamin D3) 25 MCG TABLET PO (09:32)
[2022-02-09] MEDS: Escitalopram Oxalate 20 MG TABLET PO (09:32)
[2022-02-09] MEDS: Tacrolimus 0.5 MG CAPSULE PO (09:32)
[2022-02-09] MEDS: URSODIOL 500 MG 1 EACH PO (09:32)
[2022-02-09] MEDS: 0.9 % Sodium Chloride Flush 3 ML SYRINGE IVFLUSH (09:32)
[2022-02-09 10:59] VITALS: BP 114/62; PULSE 88; RESP 16; TEMP 37.1; O2SAT 94
--- NOTE | 2022-02-09 12:49 | P.PNGI_ITS ---
Subjective Subjective Date of Service: 02/09/22 Interval History: stool improved,more formed now pain is much improved feels hungry no melena or rectal bleeding CT enterogram done yesterday overall she feels about 20% improved as compared to before admission Critical Care Time (minutes): 0 Physical Exam Vital Signs: Vital Signs: Last Vital Signs Temp 98.7 F 02/09/22 10:59 Pulse 88 02/09/22 10:59 Resp 16 02/09/22 10:59 BP 114/62 02/09/22 10:59 Pulse Ox 94 02/09/22 10:59 O2 Del Method 02/09/22 10:59 BMI result Body Mass Index 29.3 EXAM: GENERAL: The patient is relaxed, good color VITAL SIGNS:see workflow HEENT: Nonicteric sclerae, PERRLA, EOMI. Oropharynx clear. Moist mucous membr anes. Conjunctivae appear well perfused. No thyroid mass. CHEST: Chest wall is nontender. HEART: Regular rate and rhythm without murmurs. LUNGS: Clear to auscultation bilaterally,some slightly reduced BS right lung ABDOMEN: Soft, positive bowel sounds, nontender, no organomegaly.no flank tenderness, scar noted SKIN: No rash, no excessive bruising, petechiae, or purpura. NEUROLOGIC: Cranial nerves II-XII intact without motor/sensory deficit. MS: normal movement Objective Data Labs CBC & Chem 7: 02/07/22 06:41 02/07/22 06:[address] scan - abdomen: Attestation: I personally reviewed and interpreted this imaging study as follows: (distended ascending colon, no focal enhancement of small bowel, small amount of abdominal fluid and small right pleural effusion ) Microbiology Microbiology Results: Microbiology 02/04/22 12:59 Ascites Fluid Gram Stain - Final 02/04/22 12:59 Ascites Fluid Anaerobic Culture - Final NO GROWTH AFTER 5 DAYS 02/04/22 12:59 Ascites Fluid Body Fluid Culture - Final No growth after 2 days 02/07/22 14:25 Ascites Fluid Gram Stain - Final 02/07/22 14:25 Ascites Fluid Anaerobic Culture - Preliminary No growth to date. 02/07/22 14:25 Ascites Fluid Body Fluid Culture - Final No growth after 2 days 02/03/22 21:15 Blood - Venous Blood Culture - Final No growth after 5 days. 02/03/22 20:48 Blood - Venous Blood Culture - Final No growth after 5 days. 02/04/22 12:59 Ascites Fluid Fungal Identification - Preliminary No growth to date. Echocardiogram Echocardiogram Results: normal EF, normal right heart Procedures Date of Service Date of Service: 02/10/22 Progress Note: A&P Assessment and plan (1) Ascites: Status: Acute Plan 1/Abdominal pain and diarrhea with elevated ascitic fluid counts and high CRP, had good course of meropenam with no real response in these numbers but improved clinically. Cte without any perforation, or gross inflammation. cultures for ascites and blood negative for TB, fungi and bacteria. fluid ADa pending as is calprotectin. Stool PCR and c diff tests were negative. PLAN: 1/allow home 2/ trial of budesonide given findings on capsule with patchy small bowel erythema, may repeat at future date 3/ recheck CRP and maybe ascitic fluid in few weeks 4/stop colvesalam for the moment 5/to come back if any fevers, worsening abdominal pain, confusion,etc also discussed with daughter 6/ one week of flagyl Time Spent With Patient Time: Total time spent is greater than 50% in coordination of care (as documented) at patient's floor/unit and/or counseling patient: Quality Stroke Does the patient have a stroke diagnosis?: No VTE Prior VTE?: No VTE Risk Level:: Medical - moderate - high VTE Device Contraindication: Treatment Not Indicated VTE Drug Contraindication: N/A - Med Ordered
--- NOTE | 2022-02-09 14:05 | MHC.CM.PN ---
IMM 02/09/22 Patient is discharged today self care. She has arranged for family transport home.
--- NOTE | 2022-02-09 14:26 | PM.DS ---
DS: Providers Provider Date of Service: 02/09/22 Date of admission: 02/03/22 22:19 Primary care physician: Taylor Zapata MD Consults: 02/04/22 05:22 Consult to Gastroenterology Routine Consulting Provider: Kathy Galloway Reason for consultation: SBP Has provider been notified: No 02/04/22 14:57 Consult to Infectious Diseases Routine Consulting Provider: Lizbeth Guerra Reason for consultation: sbp DS: Diagnosis Discharge Diagnosis (1) SBP (spontaneous bacterial peritonitis): Status: Acute DS: Summary Hospital Course Hospital Course: History of presenting illness Date of Service: 02/03/22 Chief Complaint: abd distention This 6-year-old female with past medical history of primary biliary cholangitis, status post liver transplant 2015, HTN, anxiety, history of breast cancer status post lumpectomy, presents to the hospital for management of SBP.? She was sent to the hospital by revenue cycle administrator Dr. Galloway for IV antibiotics.? Per patient she has been 0 waited for abdominal distension and had abnormal labs, and paracentesis resolved about a week ago, patient was diagnosed with SBP, was treated with p.o. antibiotics, but due to worsening neutral failure on her labs patient was sent to the ED for treatment with IV antibiotics.? Patient denies any fever, no chills.? She reports diffuse abdominal pain worse in the lower quadrants, reports the pain has been there for months, worse in the past 7-8 months, reports chronic diarrhea, denies any urinary symptoms. On arrival to the ED patient hemodynamically stable no significant abnormal vitals Labs are significant for WBC count of 3.9, hemoglobin of 10.5, hematocrit of 32.8, INR of 1.2, CRP of 5.58, total bili of 1.4, AST of 40, alk-phos of 187, ALT of 27, albumin of 3.4.? UA shows leukocyte Estrace Abdomen pelvic CT shows no acute intra-abdominal process, cirrhosis and evidence of portal hypertension with splenomegaly and moderate volume ascites, presents in small right pleural effusion Patient started on IV antibiotics, will be admitted for further management. Hospital course 66yo F with PBC s/p liver transplant in 2015, sent in to hospital by her revenue cycle administrator for management of SBP # abdominal pain and diarrhea diagnosed with spontaneous bacterial peritonitis, patient underwent paracentesis on 02/04/2022 noted to have elevated WBC more than recent outpatient tap, patient was treated in-house initially with IV ceftriaxone subsequently switched to meropenem on 02/04 ascitic fluid culture showed no growth, patient's symptoms of abdominal pain nausea, vomiting, improved she developed diarrhea, C diff came back negative, likely had antibiotic induced diarrhea that is improving, patient underwent repeat paracentesis on 02/07 for follow up on fluid cell count that showed worsening WBC count but since patient is clinically better case was discussed with ID Dr. Guerra, she recommend no further antibiotic treatment, patient had a CT enterography that showed no evidence of ileitis, since patient is clinically better she is being discharged home on by mouth Flagyl 500 mg t.i.d. patient was followed closely by Dr. Pompa from Gastroenterology he will treat patient with budesonide due to elevated CRP and increase WBC in ascitic fluid and giving findings of patchy small-bowel erythema on capsule study . # cirrhosis - MELD 14, Dr. Paul spoke with [facility] and they recommend to continue tacrolimis # Transient dyspnea improved, unremarkable chest x-ray and an echocardiogram showed EF 60-65% both atria normal in size, no regional wall motion abnormality and normal diastolic function # liver transplant - continue tacrolimus # PBC - continue ursodiol and colesevelam # mood disorder - continue escitalopram Time Spent with Patient Time attestation: Total time spent providing and/or coordinating discharge services: Discharge coordination time: Greater than 30 minutes Quality: Safe Use of Opioids Does Pt have an Active Cancer Diagnosis on the Problem List?: No Quality: Stroke Does the patient have a stroke diagnosis?: No Physical Exam Vital Signs: Vital Signs: Last Vital Signs Temp 98.7 F 02/09/22 10:59 Pulse 88 02/09/22 10:59 Resp 16 02/09/22 10:59 BP 114/62 02/09/22 10:59 Pulse Ox 94 02/09/22 10:59 O2 Del Method 02/09/22 10:59 BMI result Body Mass Index 29.3 Const: Other: General awake aler t x3, resting comf ortably in no acut e distress.? Anict walter sclera Neck? no JVD. CVS? regul ar rate rhythm, Re spiratory lungs cl ear to auscultatio n, no respiratory distress, no wheez e, no rhonchi. Gas trointestinal abdo men soft, bowel so unds audible,mid a bd. discomfort mid abdomen to palpat ion, no guarding , no rigidity. Extr emities no? edema. Neuro nonfocal Sk in no rash Psych a ppropriate affect DS: Data Data Completed and Pending Pending studies at discharge: Pending at discharge 02/04/22 11:26 Cytology [PTH] Stat Labs on day of discharge: Preliminary micro results at discharge 02/07/22 14:25 Anaerobic Culture - Preliminary Ascites Fluid No growth to date. 02/04/22 12:59 Fungal Identification - Preliminary Ascites Fluid No growth to date. Discharge Plan Discharge Anticipated Discharge Date/Time: 02/09/22 13:42 Patient Disposition: Home, Self-Care Discharge Diagnosis: spontaneous bacterial peritonitis Diarrhea Cirrhosis Referrals: Taylor Zapata MD [Primary Care Provider] - 1 Week Discharge Medications: New metronidazole 500 mg tablet 500 mg PO Q8H 7 Days Qty: 21 0RF Continued colesevelam 625 mg tablet 1,250 mg PO BID Qty: 360 1RF Rx Instructions: take 2 tabs in AM and 2 in PM citalopram [Celexa] 40 mg tablet 40 mg PO DAILY Qty: 90 1RF budesonide 3 mg capsule,delayed,extend.release 9 mg PO DAILY Qty: 90 2RF acetaminophen 325 mg Tablet 650 mg PO Q4H PRN (Reason: Pain (Scale Score 1-3)) calcium carbonate [Tums] 300 mg (750 mg) Tablet,Chewable 300 mg PO QID PRN (Reason: Indigestion) tacrolimus 0.5 mg capsule 1 cap PO BID ursodiol 500 mg tablet 1 tab PO BID cholecalciferol (vitamin D3) [Vitamin D3] 25 mcg (1,000 unit) Tablet 25 mcg PO DAILY pantoprazole 40 mg tablet,delayed release (DR/EC) 40 mg PO DAILY@0630 lidocaine [Lidoderm] 5 % adhesive patch,medicated 1 patch topical DAILY PRN (Reason: Pain) Rx Instructions: leave on most painful area for up to 12 hrs gabapentin 300 mg capsule 300 mg PO BEDTIME Qty: 90 3RF Discharge Orders: Discharge Order (Routine); Ordered 02/09/22 Ordered By: Marcelo Faith Diet: Advance to usual diet Activity on Discharge: As tolerated Stand Alone Forms: Patient Portal Discharge page Care Plan Goals: Take Flagyl 1 tablet 3 times a day for 1 week, if diarrhea persists avoid high-fiber, take yogurt , banana, toast, pudding and bland diet Return to check with worsening abdominal pain nausea vomiting diarrhea, Health Concerns: Take all home medications as before Plan of Treatment: Outpatient follow-up with Dr. Paul call for appointment in next 1-2 weeks Assessment: As above
--- NOTE | 2022-02-13 13:24 | P.CDIR_ITS ---
Documented by User: Catherine Caal RN 02/13/22 13:30 Retrospective Query PHYSICIAN'S DOCUMENTATION REQUEST Date of Query: 02/13/22 [id number] Patient Name: Praveena Douglass Admit Date: 02/03/22 Dear Doctor, A review of the medical record indicates additional documentation may be needed. Please review below and update the documentation accordingly. Clinical Indicators: The diagnosis of Sepsis was documented in the ED note, but is not consistently noted in subsequent documentation. Risk Factors/Clinical Indicators/Treatments WBC 3.9 HR 94 per ID note: concern over spontaneous bacterial peritonitis, but no organism found Ascites fluid showed no growth Please clarify the following: * Sepsis was present on admission and is now resolved * Sepsis was present on admission and is still being monitored, evaluated, or treated * Sepsis was ruled out * Sepsis is still a likely, suspected, probable diagnosis * Other (please specify) * Unable to determine Use of terms such as suspected, likely, concern for, or probable (associated with a specific diagnosis that is being evaluated, monitored, or treated as if it exists) are acceptable and can be coded in the inpatient setting, when documented at the time of discharge. Thank you, Catherine Caal RN Extension: [phone] Please use your independent medical judgment in providing your response. THIS QUERY IS PART OF THE PERMANENT MEDICAL RECORD Documented by User: Marcelo Faith MD 02/15/22 08:17 Retrospective Query Provider Response: Other (no sepsis present)
[2022-02-13 18:11] LABS: Calprotectin, Fecal 114 mcg/g
== END 2022-02-09 15:33 | disposition home or self-care (01) | DRG 372 ==
LOC: HO.ED 21:16 → HO.EDOVER 22:39 → HO.IMC 02-04 03:04
PROVIDERS: Family Medicine; Internal Medicine Gastroenterology; Admitting Provider Internal Medicine; Emergency Provider Student in an Organized Health Care Education/Training Program; PCP Internal Medicine; Visit Provider Hospitalist
DX: K65.2 Spontaneous bacterial peritonitis (principal); K50.90 Crohn's disease, unspecified, without complications; Z94.4 Liver transplant status; T86.42 Liver transplant failure; I10 Essential (primary) hypertension; F41.9 Anxiety disorder, unspecified; Z85.3 Personal history of malignant neoplasm of breast; K52.9 Noninfective gastroenteritis and colitis, unspecified; K74.3 Primary biliary cirrhosis; D64.9 Anemia, unspecified; K74.60 Unspecified cirrhosis of liver; Z20.822 Contact with and (suspected) exposure to COVID-19; B02.9 Zoster without complications; Z88.2 Allergy status to sulfonamides; Z88.5 Allergy status to narcotic agent; Z88.8 Allergy status to other drugs, medicaments and biological substances; Z79.621 Long term (current) use of calcineurin inhibitor; Z79.899 Other long term (current) drug therapy
CPT/HCPCS: 0241U; 36415; 49083; 71045; 71046; 74176; 74177; 80048; 80053; 81001; 82042; 82140; 82150; 82945; 83605; 83615; 83735; 83880; 83986; 83993; 84157; 85025; 85027; 85610; 85730; 86140; 87040; 87070; 87073; 87102; 87116; 87205; 87493; 87507; 88112; 89051; 93005; 93306; 99285; J0696; J2185; J2270; J2405; P9047; Q9967

== ENCOUNTER 2022-02-16 10:22 | Outpatient (REF) | payer MEDICARE, OTHER, SELFPAY | END 2022-02-16 10:23 | disposition home or self-care (01) | LOC: HO.LAB 10:22 | PROVIDERS: Physician Assistant; PCP Internal Medicine; Visit Provider Internal Medicine Gastroenterology | DX: D61.818 Other pancytopenia (principal); K52.9 Noninfective gastroenteritis and colitis, unspecified; Z94.4 Liver transplant status; Z79.899 Other long term (current) drug therapy | CPT/HCPCS: 36415; 80197 ==

== ENCOUNTER → 2022-02-17 11:19 | Outpatient (BNVA) | payer MEDICARE, OTHER, SELFPAY | PROVIDERS: PCP Internal Medicine; Visit Provider Internal Medicine Gastroenterology | DX: K65.2 Spontaneous bacterial peritonitis (principal); R18.8 Other ascites; Z79.2 Long term (current) use of antibiotics | CPT/HCPCS: Q3014 ==

== ENCOUNTER 2022-03-06 11:47 | Outpatient (REF) | payer MEDICARE, OTHER, SELFPAY ==
[2022-03-06 12:14] LABS: MANUAL DIFF FLAG NO
[2022-03-06 14:11] LABS: Basophils Percent Auto 0.1 % (0-2); Eosinophils Percent Auto 0.6 % (0-4); Hematocrit 38.1 % (37.0-47.0); Hemoglobin 12.3 g/dl (12.0-16.0); Imm Gran Abs Auto 0.03 X10*3/uL (0.00-0.03); Imm Gran Pct Auto 0.4 % (0.0-0.4); Lymphocytes Absolute Auto 0.4 X10*3/uL (1.2-4.9); Lymphocytes Percent Auto 6.2 % (20-40); Mean Corpuscular HGB Conc 32.3 g/dl (31.0-35.0); Mean Corpuscular Hemoglobin 28.9 pg (27.0-33.0); Mean Corpuscular Volume 89.4 fL (80.0-98.0); Mean Platelet Volume 10.9 fL (9.4-12.3); Monocytes Absolute Auto 0.5 X10*3/uL (0.1-1.2); Monocytes Percent Auto 7.8 % (2-11); Neutrophils Absolute Auto 5.8 x10*3/uL (2.0-8.3); Neutrophils Percent Auto 84.9 % (45-73); Platelet Count 102 X10*3/uL (160-400); Red Blood Count 4.26 X10*6/uL (4.20-5.50); Red Cell Distribution Width 17.7 % (11.0-16.0); White Blood Count 6.9 X10*3/uL (4.8-10.8)
[2022-03-06 14:39] LABS: Alanine Aminotransferase 83 U/L (0-31); Alkaline Phosphatase 170 U/L (39-117); Anion Gap 14 (12-20); Aspartate Amino Transferase 74 U/L (5-31); Bilirubin Direct 1.2 mg/dL (0.0-0.5); Bilirubin Total 2.1 mg/dL (0.0-1.0); Blood Urea Nitrogen 15 mg/dL (9-16); Calcium 9.2 mg/dL (8.4-10.2); Carbon Dioxide 23 mmol/L (22-29); Chloride 109 mmol/L (96-108); Estimated Glomerular Filt Rate > 60; Glucose Random 103 mg/dL (60-115); Magnesium 1.7 mg/dL (1.6-2.6); Potassium 3.6 mmol/L (3.3-5.1); Sodium 142 mmol/L (135-145); Total Protein 6.7 g/dL (6.5-8.0); Uric Acid 4.1 mg/dL (2.4-5.7)
== END 2022-03-06 11:48 | disposition home or self-care (01) ==
LOC: HO.LABR 11:47
PROVIDERS: PCP Internal Medicine; Referring Provider Internal Medicine Gastroenterology; Visit Provider Internal Medicine Gastroenterology
DX: Z94.4 Liver transplant status (principal); Z79.899 Other long term (current) drug therapy
CPT/HCPCS: 36415; 80048; 80076; 83735; 84550; 85025

== ENCOUNTER 2022-03-30 09:16 | Outpatient (REF) | payer MEDICARE, OTHER, SELFPAY ==
--- NOTE | ~2022-03-30 | XR_ITS ---
EXAMINATION: XR CHEST CLINICAL INFORMATION: Cough. COMPARISON: Chest 02/05/2022 TECHNIQUE: 2 views of the chest were obtained. FINDINGS: There is moderate right pleural effusion and underlying atelectatic changes. Rest of the lungs are clear and expanded. Heart size and pulmonary vascularity is normal. No gross bony abnormality seen. XR/XR chest 2V IMPRESSION: Moderate right pleural effusion with underlying atelectatic changes.
[2022-03-30 11:54] LABS: Influenza A PCR NEGATIVE (Negative); Influenza B PCR NEGATIVE (Negative); Resp Syncy Virus RNA Qual PCR NEGATIVE (Negative); SARS COV2 PCR INHOUSE NEGATIVE (Negative)
== END 2022-03-30 09:17 | disposition home or self-care (01) ==
LOC: HO.HMGCX 09:16
PROVIDERS: PCP Internal Medicine; Visit Provider Nurse Practitioner Family
DX: Z13.89 Encounter for screening for other disorder (principal)
CPT/HCPCS: 0241U; 71046

== ENCOUNTER 2022-03-30 11:35 | Inpatient (IN) | payer MEDICARE, OTHER, SELFPAY ==
--- NOTE | ~2022-03-30 | US_ITS ---
EXAMINATION: US VENOUS WITH DOPPLER UPPER EXTREMITY, LEFT CLINICAL INFORMATION: Swelling COMPARISON: None TECHNIQUE: Ultrasound of the upper extremity is performed using compression sonography and color and pulse Doppler flow with assessment of augmentation of flow. There is also imaging and Doppler assessment of the jugular and subclavian veins. Spectral analysis with color-flow imaging is performed. FINDINGS: Respiratory variation, normal compression, and augmented flow are noted throughout the upper extremity including the axillary, brachial, cubital, and radial and ulnar veins. There is normal flow in the internal jugular and subclavian veins. There is no visible deep or superficial thrombophlebitis. If the patient's symptoms progress, a followup ultrasound in 5 -7 days might be of value to exclude proximal propagation from a nonvisualized distal arm vein. Included in the images left cervical lymph nodes. US/US venous duplex UE LT IMPRESSION: No DVT demonstrated in the left arm Mildly prominent left cervical lymph node 1.9 x 1 cm.
--- NOTE | ~2022-03-30 | US_ITS ---
EXAMINATION: ULTRASOUND-GUIDED THORACENTESIS AND PARACENTESIS CLINICAL INFORMATION: Liver failure. Right pleural effusion and ascites. COMPARISON: Previous CT and chest x-ray from yesterday TECHNIQUE: Procedure and risks and benefits including bleeding, infection, pneumothorax and low blood pressure were discussed with the patient and informed consent was obtained. The right posterior lateral chest was prepped and draped in the usual sterile fashion. The skin and soft tissues were anesthetized with 1% lidocaine plain. Using ultrasound guidance and a 4 Czech catheter, access to the right pleural effusion was obtained. 300 mL of slightly cloudy yellow fluid was removed. Diagnostic specimen was sent. Fluid appeared gelatinous or solidified with time. The left lower quadrant was prepped and draped in the usual sterile fashion. The skin and soft tissues were anesthetized with 1% indicating plain. Using ultrasound guidance and a 5 Czech catheter, access to the ascitic fluid was obtained. 3.8 L of slightly cloudy yellow fluid was removed. Diagnostic specimen was sent. FINDINGS: There is a moderate right pleural effusion. There is a large amount of ascites. US/US paracentesis abd w/image IMPRESSION: Ultrasound-guided right thoracentesis and paracentesis.
--- NOTE | ~2022-03-30 | CT_ITS ---
EXAMINATION: CT CHEST, ABDOMEN AND PELVIS WITHOUT CONTRAST CLINICAL INFORMATION: Shortness of breath and abdominal pain COMPARISON: February 07, 2022 and February 03, 2022 TECHNIQUE: Multidetector volumetric imaging was performed from the thoracic inlet through the pubic without intravenous or oral contrast. Sagittal and coronal reformatted images were obtained on the technologist workstation. This CT examination was performed using dose optimization techniques as appropriate, variously including the following: *Automated exposure control *Adjustment of mA and/or kV according to patient size (this includes techniques or standardized protocols for targeted exams where dose is matched to indication/reason for exam; i.e. extremities or head) *Use of iterative reconstruction technique DLP: 772 mGy-cm. FINDINGS: CHEST: Lungs: There are scattered sub-4 mm densities present bilaterally. Central airways are patent. No significant bronchial wall thickening is seen. There is some passive atelectasis seen at the right base related to pleural effusion. No confluent pneumonia is present. There are some scattered calcified granulomas. Mediastinum: Heart normal size. Prominent coronary artery calcifications present. No pericardial effusion. No thoracic aortic aneurysm. There is some mild nonocclusive calcified plaque within the aortic arch. Visualized portions of the thyroid gland unremarkable. There is a prominent azygos vein which is seen communicating with a large right internal mammary vein with some chest wall collateral vessels present. No mediastinal or hilar lymphadenopathy is appreciated. Pleura: There is a stable moderate size right pleural effusion. Chest Wall/Axilla: No axillary lymphadenopathy is appreciated. Collateral veins about the right chest wall evident. ABDOMEN/PELVIS: Liver, Gallbladder, Biliary Tree: By history patient is status post hepatic transplant. No focal hepatic lesions are identified. No bile duct dilatation is appreciated. Status post cholecystectomy. Pancreas: Unremarkable. No mass or peripancreatic inflammatory change appreciated. Spleen: There is splenomegaly present with vertical span of 16 cm. Adrenal Glands: Unremarkable. Kidneys and Ureters: The kidneys are normal in size, shape, and attenuation. No hydronephrosis or hydroureter or calculi seen. No perinephric stranding. Bladder: Distended but with streak artifact limiting evaluation related to the bilateral total hip arthroplasties. Gastrointestinal Tract: No dilated loops of large or small bowel are evident. There is moderate to large amount of ascites present. No free air is identified. No colonic wall thickening is appreciated. No evidence of colitis or acute diverticulitis. Portions of the appendix which are visualized appear unremarkable. Abdominal Wall: No significant hernia is demonstrated. Lymph Nodes: No lymphadenopathy is identified. Vascular: There is mild aortoiliac plaque present without evidence of abdominal aortic aneurysm. Splenic artery calcifications are seen. Pelvic Viscera: Limited evaluation due to streak artifact from bilateral total hip arthroplasty. No significant abnormality appreciated. Osseous Structures: Bilateral total hip arthroplasties. No suspicious destructive bony lesions are appreciated. There are some healed right rib fractures. There is severe degenerative disc disease seen at the L5-S1 level with loss of disc space and marginal sclerosis and spurring. There is bilateral facet arthropathy L4-S1. CT/CT abdomen pelvis wo IV con IMPRESSION: Stable moderate right pleural effusion. Old granulomatous disease. Prominent azygos vein and chest wall varices. Splenomegaly. No evidence of bowel ileus or obstruction or obstructive uropathy. Large volume ascites.
--- NOTE | ~2022-03-30 | US_ITS ---
EXAMINATION: ULTRASOUND-GUIDED THORACENTESIS AND PARACENTESIS CLINICAL INFORMATION: Liver failure. Right pleural effusion and ascites. COMPARISON: Previous CT and chest x-ray from yesterday TECHNIQUE: Procedure and risks and benefits including bleeding, infection, pneumothorax and low blood pressure were discussed with the patient and informed consent was obtained. The right posterior lateral chest was prepped and draped in the usual sterile fashion. The skin and soft tissues were anesthetized with 1% lidocaine plain. Using ultrasound guidance and a 4 Vietnamese catheter, access to the right pleural effusion was obtained. 300 mL of slightly cloudy yellow fluid was removed. Diagnostic specimen was sent. Fluid appeared gelatinous or solidified with time. The left lower quadrant was prepped and draped in the usual sterile fashion. The skin and soft tissues were anesthetized with 1% indicating plain. Using ultrasound guidance and a 5 Vietnamese catheter, access to the ascitic fluid was obtained. 3.8 L of slightly cloudy yellow fluid was removed. Diagnostic specimen was sent. FINDINGS: There is a moderate right pleural effusion. There is a large amount of ascites. US/US thoracentesis IMPRESSION: Ultrasound-guided right thoracentesis and paracentesis.
--- NOTE | ~2022-03-30 | XR_ITS ---
EXAMINATION: XR CHEST CLINICAL INFORMATION: Post right thoracentesis COMPARISON: Previous chest x-ray from yesterday TECHNIQUE: Frontal view of the chest was obtained. FINDINGS: The cardiac and mediastinal contours are stable. There is interval decrease in the right pleural effusion post right thoracentesis. There may be a small amount of loculated fluid in the pleural fissure. The lungs are otherwise clear. No left pleural effusion. No pneumothorax. No acute bone abnormality. XR/XR chest 1V IMPRESSION: No pneumothorax post right thoracentesis.
[2022-03-30 11:53] VITALS: BP 184/94; PULSE 96; RESP 18; TEMP 36.6; O2SAT 97; BMI 26.2
--- NOTE | 2022-03-30 12:02 | ED_ITS ---
HPI - General Adult General Chief complaint: General Medical <Livia Alvarez NP - Last Filed: 03/30/22 12:07> Stated complaint: sent from urgent care. fluid in lungs <Livia Alvarez NP - Last Filed: 03/30/22 12:07> Time Seen by Provider: 03/30/22 14:21 <Livia Alvarez NP - Last Filed: 03/30/22 12:07> Source: patient and family (son) <EMELIA Haddad - Last Filed: 03/30/22 17:5 8> Mode of arrival: ambulatory <EMELIA Haddad - Last Filed: 03/30/22 17:58> Limitations: no limitations <EMELIA Haddad - Last Filed: 03/30/22 17:58> History of Present Illness HPI narrative: Patient is a 66 year old assigned female at with a history of liver transplant in 2016, pleural effusion requiring drainage, ascites requiring drainage, and current cirrhosis of the liver presenting to the emergency department today with shortness of breath and possible fluid on the lung. Patient states that she was seen at urgent care for shortness of breath and was told her XR showed fluid around her lungs. Patient states that her liver transp lant occurred in 2016 however, her new liver is already cirrhotic and she has ascites. Patient states that she is actively following with Dr. Desai at [facility] in [place], [place]. Patient denies any dizziness, lightheadedness, abdominal pain, nausea, vomiting, fever, chills, blurry vision, double vision, loss of vision, chest pain, back pain, night sweats, pain with urination, increased urinary frequency, increased urinary urgency, blood in [his/her/their] urine or stool, syncope or a near syncopal episode, recent trauma or falls, bowel incontinence, bladder incontinence, bowel retention, bladder retention, or any other complaints at this time. <EMELIA Haddad - Last Filed: 03/30/22 17:58> Onset (ago): day(s) <EMELIA Haddad - Last Filed: 03/30/22 17:58> Severity: mild <EMELIA Haddad Last Filed: 03/30/22 17:58> Severity scale (1-10): 4 <EMELIA Haddad - Last Filed: 03/30/22 17:58> Relieving factors: none <EMELIA Haddad - Last Filed: 03/30/22 17:58> Exacerbating factors: none <EMELIA Haddad - Last Filed: 03/30/22 17:58> Associated symptoms: shortness of breath <EMELIA Haddad - Last Filed: 03/30/22 17:58> Treatments prior to arrival: none <EMELIA Haddad - Last Filed: 03/30/22 17:58> Related Data Home medications: Home Medications Medication Instructions Recorded Confirmed acetaminophen 325 mg tablet 650 mg PO Q4H PRN Pain (Scale 11/02/21 02/04/22 Score 1-3) tacrolimus 0.5 mg capsule, 1 cap PO BID 11/02/21 02/04/22 immediate-release ursodiol 500 mg tablet 1 tab PO BID 11/02/21 02/04/22 lidocaine 5 % topical patch 1 patch topical DAILY PRN Pain 02/04/22 02/04/22 (Lidoderm) pantoprazole 40 mg tablet,delayed 40 mg PO DAILY@0630 02/04/22 02/04/22 release Previous Rx's Medication Instructions Recorded gabapentin 300 mg capsule 300 mg PO BEDTIME #90 caps 11/09/21 colesevelam 625 mg tablet 1,250 mg PO BID diarrhea #360 tabs 12/06/21 citalopram 40 mg tablet (Celexa) 40 mg PO DAILY #90 tabs 12/29/21 budesonide 3 mg 9 mg PO DAILY #90 ea 02/09/22 capsule,delayed,extended release spironolactone 50 mg tablet 50 mg PO DAILY #14 tabs 02/17/22 (Aldactone) furosemide 20 mg tablet 20 mg PO DAILY #90 tabs 03/08/22 <Livia Alvarez NP - Last Filed: 03/30/22 12:07> Allergies/adverse reactions: Allergies Allergy/AdvReac Type Severity Reaction Status Date / Time hydromorphone [From Dilaudid] Allergy Severe Hallucinati Verified 03/30/22 08:40 ons losartan Allergy Intermediate Facial Verified 03/30/22 08:40 Swelling Sulfa (Sulfonamide AdvReac Severe Rash Verified 03/30/22 08:40 Antibiotics) <Livia Alvarez NP - Last Filed: 03/30/22 12:07> Review of Systems Constitutional: Constitutional: Reports no additional constitutional complaints, Denies chills, Denies fever(s) and Denies night sweats <EMELIA Haddad - Last Filed: 03/30/22 17:58> Eyes: Eyes: Reports no additional eye complaints, Denies blurry vision, Denies change in vision, Denies diplopia, Denies eye discharge, Denies loss of vision and Denies eye pain <EMELIA Haddad - Last Filed: 03/30/22 17:58> ENT: Denies dizziness <EMELIA Haddad - Last Filed: 03/30/22 17:58> Cardiovascular: Cardiovascular: Reports no additional cardiovascular complaints, Denies chest pain, Denies lightheadedness, Denies Loss of Consciousness and Reports dyspnea <EMELIA Haddad - Last Filed: 03/30/22 17:58> Respiratory: Respiratory: Reports no additional respiratory complaints and Reports dyspnea <EMELIA Haddad - Last Filed: 03/30/22 17:58> Gastrointestinal: Gastrointestinal: Reports no additional gastrointestinal complaints, Denies abdominal pain, Denies melena, Denies hematochezia, Denies change in bowel habits and Denies change in stool character <EMELIA Haddad - Last Filed: 03/30/22 17:58> Genitourinary: Genitourinary: Denies hematuria, Denies urinary frequency, Denies dysuria, Denies urinary incontinence, Denies urinary hesitancy and Denies urinary urgency <EMELIA Haddad - Last Filed: 03/30/22 17:58> Musculoskeletal: Musculoskeletal: Reports no additional musculoskeletal complaints, Denies numbness and Denies tingling <EMELIA Haddad - Last Filed: 03/30/22 17:58> Neurologic: Denies dizziness, Denies loss of vision, Denies numbness and Denies tingling <EMELIA Haddad - Last Filed: 03/30/22 17:58> Psychiatric: Psychiatric: Reports no additional psychiatric complaints <EMELIA Haddad - Last Filed: 03/30/22 17:58> Endocrine: Endocrine: Reports no additional endocrine complaints <EMELIA Haddad - Last Filed: 03/30/22 17:58> Hematologic/Lymphatic: Hematologic/Lymphatic: Reports no additional hematologic/lymphatic complaints <EMELIA Haddad - Last Filed: 03/30/22 17:58> Allergic/Immunologic: Allergic/Immunologic: Reports no additional allergic/immunologic complaints <EMELIA Haddad - Last Filed: 03/30/22 17:58> PMFSH Past Medical History Attestation statement: The following information was validated with the patient. <EMELIA Haddad - Last Filed: 03/30/22 17:58> Source: old records reviewed and nursing notes reviewed <EMELIA Haddad - Last Filed: 03/30/22 17:58> Medical History: Medical History Anemia Anxiety Breast cancer CHF (congestive heart failure) Chronic diarrhea HTN (hypertension) Pancytopenia Primary biliary cholangitis Tremor <Livia Alvarez NP - Last Filed: 03/30/22 12:07> Surgical History: Surgical History H/O: hysterectomy Hx of colonoscopy Hx of esophagogastroduodenoscopy Liver transplant recipient S/P hip replacement Transplant recipient <Livia Alvarez NP - Last Filed: 03/30/22 12:07> Family History Family History: Family History Mother CAD (coronary artery disease) Sister Ovarian cancer Mental health disorder <Livia Alvarez NP - Last Filed: 03/30/22 12:07> Social History Social History: Social History Household Members: Spouse Household Members Other:: , children Housing: House Do you presently have visiting nurse or other home services: No Alcohol intake: never Patient Tobacco Use Status: Never used Tobacco e-Cigarette/Vaping Use: Never Used Advance Directives: No Advance Directives Information Provided: Yes service: No Current occupational status: retired Cognitive needs: No Hearing needs: No Vision needs: Yes <Livia Alvarez NP - Last Filed: 03/30/22 12:07> Physical Exam ED Vital Signs: Vital Signs - 24 hr 03/30/22 11:53 03/30/22 14:06 03/30/22 16:11 Temperature 98 F 98.0 F 98.4 F Pulse Rate 96 106 H 103 H Respiratory Rate 18 28 H 24 H Blood Pressure 184/94 H 207/10 H 147/90 H Pulse Oximetry 97 98 96 Oxygen Delivery Method Room Air Room Air Room Air BMI result Body Mass Index 26.2 <Livia Alvraez NP - Last Filed: 03/30/22 12:07> Vital Signs - 24 hr 03/30/22 11:53 03/30/22 14:06 03/30/22 16:11 Temperature 98 F 98.0 F 98.4 F Pulse Rate 96 106 H 103 H Respiratory Rate 18 28 H 24 H Blood Pressure 184/94 H 207/10 H 147/90 H Pulse Oximetry 97 98 96 Oxygen Delivery Method Room Air Room Air Room Air BMI result Body Mass Index 26.2 <EMELIA Haddad - Last Filed: 03/30/22 17:58> Const General: cooperative, no acute distress, alert and awake <EMELIA Haddad - Last Filed: 03/30/22 17:58> Nutritional Appearance: well nourished <EMELIA Haddad - Last Filed: 03/30/22 17:58> Orientation/consciousness: patient oriented x3 <EMELIA Haddad - Last Filed: 03/30/22 17:58> Limitations: no limitations <EMELIA Haddad - Last Filed: 03/30/22 17:58> HENMT Head: Yes normal to inspection and Yes atraumatic <EMELIA Haddad - Last Filed: 03/30/22 17:58> Ears: hearing grossly normal bilaterally and external ears normal <EMELIA Haddad - Last Filed: 03/30/22 17:58> General nose exam: Normal external nose present, no nasal discharge noted and no epistaxis <EMELIA Haddad - Last Filed: 03/30/22 17:58> Face and sinus: Yes normal facial exam, No abrasion and No laceration <EMELIA Haddad - Last Filed: 03/30/22 17:58> Mouth: Normal oral and palatal mucosa present, no drooling and no muffled voice <Mikaela Arciniega [place] - Last Filed: 03/30/22 17:58> Eyes General: appearance normal, both eyes and all related structures <Mikaela Arciniega [facility] Last Filed: 03/30/22 17:58> Periorbital: periorbital findings normal <Mikaela Arciniega [facility] Last Filed: 03/30/22 17:58> Eyelids: Yes eyelids normal <Mikaela Arciniega [place] - Last Filed: 03/30/22 17:58> Conjunctivae: conjunctivae normal <Mikaela Arciniega [facility] Last Filed: 03/30/22 17:58> Pupils: Equal, round and reactive pupils present <Mikaela Arciniega [facility] Last Filed: 03/30/22 17:58> EOM: EOMs intact bilaterally <Mikaela Arciniega [facility] Last Filed: 03/30/22 17:58> Neck Neck: Yes normal visual inspection, Yes full ROM and Yes no lymphadenopathy <Mikaela Arciniega [facility] Last Filed: 03/30/22 17:58> Chest Chest palpation & inspection: normal inspection of the chest <Mikaela Arciniega [facility] Last Filed: 03/30/22 17:58> Resp Effort & Inspection: able to speak in complete sentences and tachypneic <Mikaela Arciniega [facility] Last Filed: 03/30/22 17:58> Auscultation: diminished lung sounds on the right in the lower lung hugo <Mikaela Arciniega [facility] Last Filed: 03/30/22 17:58> GI Inspection: Yes distended <Mikaela Arciniega [facility] Last Filed: 03/30/22 17:58> Palpation (GI): Soft to palpation, not firm, nontender, no guarding and not rigid <Mikaela Lopezkaylyn [place] - Last Filed: 03/30/22 17:58> Percussion: Yes dullness to percussion <Mikaela Arciniega [facility] Last Filed: 03/30/22 17:58> Auscultation: normal bowel sounds <Mikaela Lopezkaylyn [place] - Last Filed: 03/30/22 17:58> Neuro General: patient oriented x3 and moves all extremities <Mikaela ArciniegaEMELIA - Last Filed: 03/30/22 17:58> Cranial nerves: Yes Equal, round and reactive pupils present <Mikaela ArciniegaEMELIA - Last Filed: 03/30/22 17:58> Cognition (Neuro): normal cognition <Mikaela ArciniegaEMELIA - Last Filed: 03/30/22 17:58> Motor exam (neuro): 5/5 motor strength present throughout <Mikaela ArciniegaEMELIA - Last Filed: 03/30/22 17:58> Sensory Exam: Normal double simultaneous stimulation for sensation <Mikaela Arciniega [place] - Last Filed: 03/30/22 17:58> Coordination: [id number] test normal <Mikaela LopezEMELIA patiño - Last Filed: 03/30/22 17:58> Extrem General: Yes normal to inspection, Yes full ROM and Yes capillary refill normal <Mikaela ArciniegaEMELIA - Last Filed: 03/30/22 17:58> Psych Appearance: grossly normal <Mikaela LopezEMELIA patiño - Last Filed: 03/30/22 17:58> Mental Status: mental status grossly normal <Mikaela ArciniegaEMELIA - Last Filed: 03/30/22 17:58> Affect: normal affect <Mikaela LopezEMELIA patiño - Last Filed: 03/30/22 17:58> Attitude: cooperative <Mikaela LopezEMELIA patiño - Last Filed: 03/30/22 17:58> Thought process: Normal thought process present <Mikaela LopezEMELIA patiño - Last Filed: 03/30/22 17:58> Thought content: Normal thought content present <Mikaela LopezEMELIA patiño - Last Filed: 03/30/22 17:58> Insight: Good insight present (Psych) <Mikaela LopezEMELIA patiño - Last Filed: 03/30/22 17:58> Course Course Course Narrative: This is a rapid medical exam. Deferred additional HPI, ROS, PE to primary provider. 66 yo female with history of liver transplant(ursodiol, tacrolimus) here with one week of URI symptoms, MONTOYA with outpatient CXR concerning for right pleural effusion. Patient with h/o thoracentesis 6 yrs ago. Seen at yesterday and prescribed azithromycin, cough suppressant. Seen again today with CXR concerning for effusion. Referred in here. Will check labs, viral testing. VSS. <Livia Alvarez NP - Last Filed: 03/30/22 12:07> Consultations Consultation #1: Called Dr. Desai's office. Awaiting call back. <EMELIA Haddad - Last Filed: 03/30/22 17:58> Time: 16:30 <EMELIA Haddad - Last Filed: 03/30/22 17:58> Consultation #2: Spoke to the provider covering Dr. Desai who recommended the patient be covered with ABX for SBP and have a thoracentesis + paracentesis for symptom control and SBP rule out. <EMELIA Haddad - Last Filed: 03/30/22 17:58> Time: 17:10 <EMELIA Haddad - Last Filed: 03/30/22 17:58> Medications Administered Discontinued Medications Generic Name Dose Route Start Last Admin Trade Name Freq PRN Reason Stop Dose Admin Ceftriaxone Sodium 2 gm/ 50 mls @ 100 mls/hr 03/30/22 17:02 03/30/22 17:23 Sodium Chloride IV 03/30/22 17:31 100 mls/hr ONCE ONE Administration <Livia Alvarez NP - Last Filed: 03/30/22 12:07> Medications Administered Discontinued Medications Generic Name Dose Route Start Last Admin Trade Name Freq PRN Reason Stop Dose Admin Ceftriaxone Sodium 2 gm/ 50 mls @ 100 mls/hr 03/30/22 17:02 03/30/22 17:23 Sodium Chloride IV 03/30/22 17:31 100 mls/hr ONCE ONE Administration <EMELIA Haddad - Last Filed: 03/30/22 17:58> Medical Decision Making Medical Decision Making MDM Narrative: Patient is a 66 year old assigned female at with a history of liver transplant presenting to the emergency department today with shortness of breath. Patient's physical exam showed tachypnea and decreased right sided lower lung sounds. Patient's blood work showed elevated LFTs with an AST of 44, ALT of 48, and ALK phos of 218. Patient's chest x-ray showed a moderate pleural effusion on the right side. Patient's chest and abdominal CT redemonstrated the right pleural effusion. I spoke to the patient's transplant team as documented in the course of this note. I spoke to the hospitalist team who accepted the patient for admission. Patient is not considered septic. Patient given IV Rocephin to cover for SBP. I explained my physical exam findings as well as all test results to the patient and the patient's son. I answered all questions asked by the patient and the patient's son. Patient and the patient's son verbalized agreement and understanding with this treatment plan and admission. <EMELIA Haddad - Last Filed: 03/30/22 17:58> Differential Diagnosis Differential Diagnoses: The differential diagnosis associated with the presentation includes <EMELIA Haddad - Last Filed: 03/30/22 17:58> SBP, pleural effusion <EMELIA Haddad - Last Filed: 03/30/22 17:58> Consult Healthcare Provider Management of the patient was discussed with: Hospitalist (agreed to admission) and Heel Brusher (spoke to transplant team - recommendations in the course of this note) <EMELIA Haddad - Last Filed: 03/30/22 17:58> Lab Data MDM Lab Attestation statement: I reviewed the patient's lab results. <EMELIA Haddad - Last Filed: 03/30/22 17:58> Result Diagrams: : 03/30/22 12:25 03/30/22 12:25 <Livia Alvarez NP - Last Filed: 03/30/22 12:07> Labs: Lab Results 03/30/22 03/30/22 03/30/22 Range/Units 12:25 12:25 12:25 WBC 6.8 (4.8-10.8) X10*3/uL RBC 4.14 L (4.20-5.50) X10*6/uL Hgb 12.1 (12.0-16.0) g/dl Hct 38.6 (37.0-47.0) % MCV 93.2 (80.0-98.0) fL MCH 29.2 (27.0-33.0) pg MCHC 31.3 (31.0-35.0) g/dl RDW 17.1 H (11.0-16.0) % Plt Count 118 L (160-400) X10*3/uL MPV 10.3 (9.4-12.3) fL Immature Gran % (Auto) 0.4 (0.0-0.4) % Neut % (Auto) 76.2 H (45-73) % Lymph % (Auto) 12.2 L (20-40) % Barren % (Auto) 9.7 (2-11) % Eos % (Auto) 1.2 (0-4) % Baso % (Auto) 0.3 (0-2) % Lymph # (Auto) 0.8 L (1.2-4.9) X10*3/uL Barren # (Auto) 0.7 (0.1-1.2) X10*3/uL Eos # (Auto) 0.1 (0.0-0.4) X10*3/uL Baso # (Auto) 0.0 (0.0-0.2) X10*3/uL Abs Immat Gran (auto) 0.03 (0.00-0.03) X10*3/uL Absolute Neuts (auto) 5.2 (2.0-8.3) x10*3/uL Absolute Nucleated RBC 0.000 (0.0-0.012) X10*3/uL Nucleated RBC % (auto) 0.0 (0.0-0.2) /100WBC PT 13.3 H (10.0-13.1) SEC INR 1.2 H (0.9-1.1) Sodium 142 (135-145) mmol/L Potassium 3.5 (3.3-5.1) mmol/L Chloride 109 H (96-108) mmol/L Carbon Dioxide 25 (22-29) mmol/L Anion Gap 12 (12-20) BUN 15 D (9-16) mg/dL Creatinine 0.67 (0.5-1.4) mg/dL Estim Creat Clear Calc 63.7 Estimated GFR > 60 Random Glucose 111 (60-115) mg/dL Lactic Acid (0.5-2.0) mmol/L Calcium 9.2 (8.4-10.2) mg/dL Total Bilirubin 2.0 H (0.0-1.0) mg/dL Direct Bilirubin 1.2 H (0.0-0.5) mg/dL AST 44 H D (5-31) U/L ALT 48 H (0-31) U/L Alkaline Phosphatase 218 H D (39-117) U/L Total Protein 6.6 (6.5-8.0) g/dL Albumin 3.7 (3.5-5.0) g/dL Influenza Type A (PCR) (Negative) Influenza Type B (PCR) (Negative) RSV RNA Qual (PCR) (Negative) SARS-CoV-2 RNA (RT-PCR) (Negative) 03/30/22 03/30/22 Range/Units 12:25 12:25 WBC (4.8-10.8) X10*3/uL RBC (4.20-5.50) X10*6/uL Hgb (12.0-16.0) g/dl Hct (37.0-47.0) % MCV (80.0-98.0) fL MCH (27.0-33.0) pg MCHC (31.0-35.0) g/dl RDW (11.0-16.0) % Plt Count (160-400) X10*3/uL MPV (9.4-12.3) fL Immature Gran % (Auto) (0.0-0.4) % Neut % (Auto) (45-73) % Lymph % (Auto) (20-40) % Barren % (Auto) (2-11) % Eos % (Auto) (0-4) % Baso % (Auto) (0-2) % Lymph # (Auto) (1.2-4.9) X10*3/uL Barren # (Auto) (0.1-1.2) X10*3/uL Eos # (Auto) (0.0-0.4) X10*3/uL Baso # (Auto) (0.0-0.2) X10*3/uL Abs Immat Gran (auto) (0.00-0.03) X10*3/uL Absolute Neuts (auto) (2.0-8.3) x10*3/uL Absolute Nucleated RBC (0.0-0.012) X10*3/uL Nucleated RBC % (auto) (0.0-0.2) /100WBC PT (10.0-13.1) SEC INR (0.9-1.1) Sodium (135-145) mmol/L Potassium (3.3-5.1) mmol/L Chloride (96-108) mmol/L Carbon Dioxide (22-29) mmol/L Anion Gap (12-20) BUN (9-16) mg/dL Creatinine (0.5-1.4) mg/dL Estim Creat Clear Calc Estimated GFR Random Glucose (60-115) mg/dL Lactic Acid 1.5 (0.5-2.0) mmol/L Calcium (8.4-10.2) mg/dL Total Bilirubin (0.0-1.0) mg/dL Direct Bilirubin (0.0-0.5) mg/dL AST (5-31) U/L ALT (0-31) U/L Alkaline Phosphatase (39-117) U/L Total Protein (6.5-8.0) g/dL Albumin (3.5-5.0) g/dL Influenza Type A (PCR) NEGATIVE (Negative) Influenza Type B (PCR) NEGATIVE (Negative) RSV RNA Qual (PCR) NEGATIVE (Negative) SARS-CoV-2 RNA (RT-PCR) NEGATIVE (Negative) <Livia Alvarez NP - Last Filed: 03/30/22 12:07> Lab Results 03/30/22 03/30/22 03/30/22 Range/Units 12:25 12:25 12:25 WBC 6.8 (4.8-10.8) X10*3/uL RBC 4.14 L (4.20-5.50) X10*6/uL Hgb 12.1 (12.0-16.0) g/dl Hct 38.6 (37.0-47.0) % MCV 93.2 (80.0-98.0) fL MCH 29.2 (27.0-33.0) pg MCHC 31.3 (31.0-35.0) g/dl RDW 17.1 H (11.0-16.0) % Plt Count 118 L (160-400) X10*3/uL MPV 10.3 (9.4-12.3) fL Immature Gran % (Auto) 0.4 (0.0-0.4) % Neut % (Auto) 76.2 H (45-73) % Lymph % (Auto) 12.2 L (20-40) % Barren % (Auto) 9.7 (2-11) % Eos % (Auto) 1.2 (0-4) % Baso % (Auto) 0.3 (0-2) % Lymph # (Auto) 0.8 L (1.2-4.9) X10*3/uL Barren # (Auto) 0.7 (0.1-1.2) X10*3/uL Eos # (Auto) 0.1 (0.0-0.4) X10*3/uL Baso # (Auto) 0.0 (0.0-0.2) X10*3/uL Abs Immat Gran (auto) 0.03 (0.00-0.03) X10*3/uL Absolute Neuts (auto) 5.2 (2.0-8.3) x10*3/uL Absolute Nucleated RBC 0.000 (0.0-0.012) X10*3/uL Nucleated RBC % (auto) 0.0 (0.0-0.2) /100WBC PT 13.3 H (10.0-13.1) SEC INR 1.2 H (0.9-1.1) Sodium 142 (135-145) mmol/L Potassium 3.5 (3.3-5.1) mmol/L Chloride 109 H (96-108) mmol/L Carbon Dioxide 25 (22-29) mmol/L Anion Gap 12 (12-20) BUN 15 D (9-16) mg/dL Creatinine 0.67 (0.5-1.4) mg/dL Estim Creat Clear Calc 63.7 Estimated GFR > 60 Random Glucose 111 (60-115) mg/dL Lactic Acid (0.5-2.0) mmol/L Calcium 9.2 (8.4-10.2) mg/dL Total Bilirubin 2.0 H (0.0-1.0) mg/dL Direct Bilirubin 1.2 H (0.0-0.5) mg/dL AST 44 H D (5-31) U/L ALT 48 H (0-31) U/L Alkaline Phosphatase 218 H D (39-117) U/L Total Protein 6.6 (6.5-8.0) g/dL Albumin 3.7 (3.5-5.0) g/dL Influenza Type A (PCR) (Negative) Influenza Type B (PCR) (Negative) RSV RNA Qual (PCR) (Negative) SARS-CoV-2 RNA (RT-PCR) (Negative) 03/30/22 03/30/22 Range/Units 12:25 12:25 WBC (4.8-10.8) X10*3/uL RBC (4.20-5.50) X10*6/uL Hgb (12.0-16.0) g/dl Hct (37.0-47.0) % MCV (80.0-98.0) fL MCH (27.0-33.0) pg MCHC (31.0-35.0) g/dl RDW (11.0-16.0) % Plt Count (160-400) X10*3/uL MPV (9.4-12.3) fL Immature Gran % (Auto) (0.0-0.4) % Neut % (Auto) (45-73) % Lymph % (Auto) (20-40) % Barren % (Auto) (2-11) % Eos % (Auto) (0-4) % Baso % (Auto) (0-2) % Lymph # (Auto) (1.2-4.9) X10*3/uL Barren # (Auto) (0.1-1.2) X10*3/uL Eos # (Auto) (0.0-0.4) X10*3/uL Baso # (Auto) (0.0-0.2) X10*3/uL Abs Immat Gran (auto) (0.00-0.03) X10*3/uL Absolute Neuts (auto) (2.0-8.3) x10*3/uL Absolute Nucleated RBC (0.0-0.012) X10*3/uL Nucleated RBC % (auto) (0.0-0.2) /100WBC PT (10.0-13.1) SEC INR (0.9-1.1) Sodium (135-145) mmol/L Potassium (3.3-5.1) mmol/L Chloride (96-108) mmol/L Carbon Dioxide (22-29) mmol/L Anion Gap (12-20) BUN (9-16) mg/dL Creatinine (0.5-1.4) mg/dL Estim Creat Clear Calc Estimated GFR Random Glucose (60-115) mg/dL Lactic Acid 1.5 (0.5-2.0) mmol/L Calcium (8.4-10.2) mg/dL Total Bilirubin (0.0-1.0) mg/dL Direct Bilirubin (0.0-0.5) mg/dL AST (5-31) U/L ALT (0-31) U/L Alkaline Phosphatase (39-117) U/L Total Protein (6.5-8.0) g/dL Albumin (3.5-5.0) g/dL Influenza Type A (PCR) NEGATIVE (Negative) Influenza Type B (PCR) NEGATIVE (Negative) RSV RNA Qual (PCR) NEGATIVE (Negative) SARS-CoV-2 RNA (RT-PCR) NEGATIVE (Negative) <EEMLIA Haddad - Last Filed: 03/30/22 17:58> Radiology Impression Discussion of test interpretation with radiology: I have reviewed the radiologist's reading. <EMELIA Haddad - Last Filed: 03/30/22 17:58> Radiologist Impression: My interpretation is in agreement with the radiologist's impression of these imaging studies. EXAMINATION: CT CHEST, ABDOMEN AND PELVIS WITHOUT CONTRAST CLINICAL INFORMATION: Shortness of breath and abdominal pain COMPARISON: February 07, 2022 and February 03, 2022 TECHNIQUE: Multidetector volumetric imaging was performed from the thoracic inlet through the pubic without intravenous or oral contrast. Sagittal and coronal reformatted images were obtained on the technologist workstation. This CT examination was performed using dose optimization techniques as appropriate, variously including the following: *Automated exposure control *Adjustment of mA and/or kV according to patient size (this includes techniques or standardized protocols for targeted exams where dose is matched to indication/reason for exam; i.e. extremities or head) *Use of iterative reconstruction technique DLP: 772 mGy-cm. FINDINGS: CHEST: Lungs: There are scattered sub-4 mm densities present bilaterally. Central airways are patent. No significant bronchial wall thickening is seen. There is some passive atelectasis seen at the right base related to pleural effusion. No confluent pneumonia is present. There are some scattered calcified granulomas. Mediastinum: Heart normal size. Prominent coronary artery calcifications present. No pericardial effusion. No thoracic aortic aneurysm. There is some mild nonocclusive calcified plaque within the aortic arch. Visualized portions of the thyroid gland unremarkable. There is a prominent azygos vein which is seen communicating with a large right internal mammary vein with some chest wall collateral vessels present. No mediastinal or hilar lymphadenopathy is appreciated. Pleura: There is a stable moderate size right pleural effusion. Chest Wall/Axilla: No axillary lymphadenopathy is appreciated. Collateral veins about the right chest wall evident. ABDOMEN/PELVIS: Liver, Gallbladder, Biliary Tree: By history patient is status post hepatic transplant. No focal hepatic lesions are identified. No bile duct dilatation is appreciated. Status post cholecystectomy. Pancreas: Unremarkable. No mass or peripancreatic inflammatory change appreciated. Spleen: There is splenomegaly present with vertical span of 16 cm. Adrenal Glands: Unremarkable. Kidneys and Ureters: The kidneys are normal in size, shape, and attenuation. No hydronephrosis or hydroureter or calculi seen. No perinephric stranding. Bladder: Distended but with streak artifact limiting evaluation related to the bilateral total hip arthroplasties. Gastrointestinal Tract: No dilated loops of large or small bowel are evident. There is moderate to large amount of ascites present. No free air is identified. No colonic wall thickening is appreciated. No evidence of colitis or acute diverticulitis. Portions of the appendix which are visualized appear unremarkable. Abdominal Wall: No significant hernia is demonstrated. ? Lymph Nodes: No lymphadenopathy is identified. Vascular: There is mild aortoiliac plaque present without evidence of abdominal aortic aneurysm. Splenic artery calcifications are seen. Pelvic Viscera: Limited evaluation due to streak artifact from bilateral total hip arthroplasty. No significant abnormality appreciated. Osseous Structures: Bilateral total hip arthroplasties. No suspicious destructive bony lesions are appreciated. There are some healed right rib fractures. There is severe degenerative disc disease seen at the L5-S1 level with loss of disc space and marginal sclerosis and spurring. There is bilateral facet arthropathy L4-S1. ? CT/CT chest wo IV con IMPRESSION: Stable moderate right pleural effusion. Old granulomatous disease. Prominent azygos vein and chest wall varices. ? Splenomegaly. No evidence of bowel ileus or obstruction or obstructive uropathy. Large volume ascites. Dictated By: Shiva Barros MD Signed By: Electronically signed by Shiva Barros MD 03/30/22 1745 EXAMINATION: XR CHEST CLINICAL INFORMATION: Cough. COMPARISON: Chest 02/05/2022 TECHNIQUE: 2 views of the chest were obtained. FINDINGS: There is moderate right pleural effusion and underlying atelectatic changes. Rest of the lungs are clear and expanded. Heart size and pulmonary vascularity is normal. No gross bony abnormality seen. XR/XR chest 2V IMPRESSION: Moderate right pleural effusion with underlying atelectatic changes. Dictated By: Atul Rowell MD Signed By: Electronically signed by Atul Rowell MD 03/30/22 0947 <EMELIA Haddad - Last Filed: 03/30/22 17:58> Independent Historian Clinical information obtained from an independent historian. History obtained from or confirmed by: Other (patient's son) <EMELIA Haddad - Last Filed: 03/30/22 17:58> Critical Care Time Critical Care Time Critical Care Time: Yes <EMELIA Haddad - Last Filed: 03/30/22 17:58> Total Critical Care Time: 45 <EMELIA Haddad - Last Filed: 03/30/22 17:58> Attestation: I spent 45 minutes of Critical Care Time with this patient. This does not include time spent on separately reported billable procedures. <EMELIA Haddad - Last Filed: 03/30/22 17:58> Discharge Plan Discharge Patient Disposition: Admitted As Inpatient <Livia Alvarez NP - Last Filed: 03/30/22 12:07> Prescriptions: No Action colesevelam 625 mg tablet 1,250 mg PO BID Qty: 360 1RF Rx Instructions: take 2 tabs in AM and 2 in PM citalopram [Celexa] 40 mg tablet 40 mg PO DAILY Qty: 90 1RF budesonide 3 mg capsule,delayed,extend.release 9 mg PO DAILY Qty: 90 2RF furosemide 20 mg tablet 20 mg PO DAILY Qty: 90 1RF acetaminophen 325 mg Tablet 650 mg PO Q4H PRN (Reason: Pain (Scale Score 1-3)) tacrolimus 0.5 mg capsule 1 cap PO BID ursodiol 500 mg tablet 1 tab PO BID pantoprazole 40 mg tablet,delayed release (DR/EC) 40 mg PO DAILY@0630 lidocaine [Lidoderm] 5 % adhesive patch,medicated 1 patch topical DAILY PRN (Reason: Pain) Rx Instructions: leave on most painful area for up to 12 hrs gabapentin 300 mg capsule 300 mg PO BEDTIME Qty: 90 3RF spironolactone [Aldactone] 50 mg tablet 50 mg PO DAILY Qty: 14 0RF <Livia Alvarez NP - Last Filed: 03/30/22 12:07>
[2022-03-30 12:32] LABS: MANUAL DIFF FLAG NO
[2022-03-30 12:36] LABS: Basophils Percent Auto 0.3 % (0-2); Eosinophils Absolute Auto 0.1 X10*3/uL (0.0-0.4); Eosinophils Percent Auto 1.2 % (0-4); Hematocrit 38.6 % (37.0-47.0); Hemoglobin 12.1 g/dl (12.0-16.0); Imm Gran Abs Auto 0.03 X10*3/uL (0.00-0.03); Imm Gran Pct Auto 0.4 % (0.0-0.4); Lymphocytes Absolute Auto 0.8 X10*3/uL (1.2-4.9); Lymphocytes Percent Auto 12.2 % (20-40); Mean Corpuscular HGB Conc 31.3 g/dl (31.0-35.0); Mean Corpuscular Hemoglobin 29.2 pg (27.0-33.0); Mean Corpuscular Volume 93.2 fL (80.0-98.0); Mean Platelet Volume 10.3 fL (9.4-12.3); Monocytes Absolute Auto 0.7 X10*3/uL (0.1-1.2); Monocytes Percent Auto 9.7 % (2-11); Neutrophils Absolute Auto 5.2 x10*3/uL (2.0-8.3); Neutrophils Percent Auto 76.2 % (45-73); Platelet Count 118 X10*3/uL (160-400); Red Blood Count 4.14 X10*6/uL (4.20-5.50); Red Cell Distribution Width 17.1 % (11.0-16.0); White Blood Count 6.8 X10*3/uL (4.8-10.8)
[2022-03-30 12:42] LABS: INTERNATIONAL NORM RATIO 1.2 (0.9-1.1); Prothrombin Time 13.3 SEC (10.0-13.1)
[2022-03-30 12:51] LABS: Lactic Acid 1.5 mmol/L (0.5-2.0)
[2022-03-30 12:55] LABS: Alanine Aminotransferase 48 U/L (0-31); Albumin Level 3.7 g/dL (3.5-5.0); Alkaline Phosphatase 218 U/L (39-117); Anion Gap 12 (12-20); Aspartate Amino Transferase 44 U/L (5-31); Bilirubin Direct 1.2 mg/dL (0.0-0.5); Blood Urea Nitrogen 15 mg/dL (9-16); Calcium 9.2 mg/dL (8.4-10.2); Carbon Dioxide 25 mmol/L (22-29); Chloride 109 mmol/L (96-108); Creatinine Clr Calc Pharmacy 63.7; Estimated Glomerular Filt Rate > 60; Glucose Random 111 mg/dL (60-115); Potassium 3.5 mmol/L (3.3-5.1); Sodium 142 mmol/L (135-145); Total Protein 6.6 g/dL (6.5-8.0)
[2022-03-30 13:33] LABS: Influenza A PCR NEGATIVE (Negative); Influenza B PCR NEGATIVE (Negative); Resp Syncy Virus RNA Qual PCR NEGATIVE (Negative); SARS COV2 PCR INHOUSE NEGATIVE (Negative)
[2022-03-30 14:06] VITALS: BP 207/10; PULSE 106; RESP 28; TEMP 36.7; O2SAT 98
[2022-03-30 16:11] VITALS: BP 147/90; PULSE 103; RESP 24; TEMP 36.9; O2SAT 96
[2022-03-30] MEDS: cefTRIAXone sodium 2 GM in 0.9 % Sodium Chloride 50 ML IV (17:23)
--- NOTE | 2022-03-30 18:03 | P.HPHOSP_ITS ---
History of Present Illness Date of Service: 03/30/22 Chief Complaint: SOB ?66 year old assigned female at with a history of liver transplant in 2016, pleural effusion requiring drainage, ascites requiring drainage, and current cirrhosis of the liver presenting to the emergency department today with shortness of breath and possible fluid on the lung. Patient states that she was seen at urgent care for shortness of breath and was told her XR showed fluid around her lungs. Patient states that her liver transplant occurred in 2016 however, her new liver is already cirrhotic and she has ascites. Patient states that she is actively following with Dr. Desai at [facility] in [place], [place]. Patient denies any dizziness, lightheadedness, abdominal pain, nausea, vomiting, fever, chills, blurry vision, double vision, loss of vision, chest pain, back pain, night sweats, pain with urination, increased urinary frequency, increased urinary urgency, blood in [his/her/their] urine or stool, syncope or a near syncopal episode, recent trauma or falls, bowel incontinence, bladder incontinence, bowel retention, bladder retention, or any other complaints at this time. Patient had similar presentation 02/03/2022 for which was treated for SBP status post tap. She states she felt better for short period of time but over the last week began to feel more short of breath with cough and increasing abdominal girth. CT chest/abdomen pelvis demonstrated stable moderate right pleural effusion and large volume ascites. She will be admitted for treatment workup of same Review of Systems Review of Systems: As per [facility] Medical History (Updated 03/30/22 @ 18:10 by Francisco Awad DO) Anemia Anxiety Breast cancer CHF (congestive heart failure) Chronic diarrhea HTN (hypertension) Pancytopenia Primary biliary cholangitis Tremor Family History Mother CAD (coronary artery disease) Sister Ovarian cancer Mental health disorder Surgical History H/O: hysterectomy Hx of colonoscopy Hx of esophagogastroduodenoscopy Liver transplant recipient S/P hip replacement Transplant recipient Social History Household Members: Spouse Household Members Other:: , children Housing: House Do you presently have visiting nurse or other home services: No Alcohol intake: never Patient Tobacco Use Status: Never used Tobacco e-Cigarette/Vaping Use: Never Used Advance Directives: No Advance Directives Information Provided: Yes service: No Current occupational status: retired Cognitive needs: No Hearing needs: No Vision needs: Yes Meds Allergies Allergy/AdvReac Type Severity Reaction Status Date / Time hydromorphone [From Dilaudid] Allergy Severe Hallucinati Verified 03/30/22 08:40 ons losartan Allergy Intermediate Facial Verified 03/30/22 08:40 Swelling Sulfa (Sulfonamide AdvReac Severe Rash Verified 03/30/22 08:40 Antibiotics) Active Medications: Current Medications Pharmacy Consult (Consult Rx Perform Med Rec) 1 each MISCELLANE ONCE PRN PRN Reason: Consult order Pharmacy Consult (Consult Rx Perform Med Rec) 1 each MISCELLANE ONCE PRN PRN Reason: Consult order Sodium Chloride (0.9 % Sodium Chloride Flush 3 Ml Syringe) 3 ml IVFLUSH [facility] Home Medications Medication Instructions Recorded Confirmed Last Taken Type acetaminophen 325 mg tablet 650 mg PO Q4H PRN Pain (Scale 11/02/21 02/04/22 11/02/21 History Score 1-3) tacrolimus 0.5 mg capsule, 1 cap PO BID 11/02/21 02/04/22 02/03/22 History immediate-release ursodiol 500 mg tablet 1 tab PO BID 11/02/21 02/04/22 02/03/22 History lidocaine 5 % topical patch 1 patch topical DAILY PRN Pain 02/04/22 02/04/22 Unknown History (Lidoderm) pantoprazole 40 mg tablet,delayed 40 mg PO DAILY@0630 02/04/22 02/04/22 02/03/22 History release Physical Exam Vital Signs and Narrative: Vital Signs: Last Vital Signs Temp 98.4 F 03/30/22 16:11 Pulse 103 H 03/30/22 16:11 Resp 24 H 03/30/22 16:11 BP 147/90 H 03/30/22 16:11 Pulse Ox 96 03/30/22 16:11 O2 Del Method 03/30/22 16:11 BMI result Body Mass Index 26.2 Const: Other: Awake alert no acute distress Resp: Other: Diminished at bases with rhonchi throughout the clear with cough. Dull to percussion right base Cardio: Other: No S4; positive S1-S2; no S3 murmurs rubs or gallops GI: Other: Soft nontender fluid wave noted; normoactive bowel sounds Extrem: Other: No edema bilaterally Results Labs CBC and Chem 7: 03/30/22 12:25 03/30/22 12:25 Labs: Laboratory Results - last 24 hr 03/30/22 03/30/22 03/30/22 12:25 12:25 12:25 MCV 93.2 MCH 29.2 MCHC 31.3 RDW 17.1 H Plt Count 118 L MPV 10.3 Immature Gran % (Auto) 0.4 Neut % (Auto) 76.2 H Lymph % (Auto) 12.2 L Kleberg % (Auto) 9.7 Eos % (Auto) 1.2 Baso % (Auto) 0.3 Lymph # (Auto) 0.8 L Kleberg # (Auto) 0.7 Eos # (Auto) 0.1 Baso # (Auto) 0.0 Abs Immat Gran (auto) 0.03 Absolute Neuts (auto) 5.2 Absolute Nucleated RBC 0.000 Nucleated RBC % (auto) 0.0 PT 13.3 H INR 1.2 H Anion Gap 12 Estim Creat Clear Calc 63.7 Estimated GFR > 60 Random Glucose 111 Lactic Acid Calcium 9.2 Total Bilirubin 2.0 H Direct Bilirubin 1.2 H AST 44 H D ALT 48 H Alkaline Phosphatase 218 H D Total Protein 6.6 Albumin 3.7 Influenza Type A (PCR) Influenza Type B (PCR) RSV RNA Qual (PCR) SARS-CoV-2 RNA (RT-PCR) 03/30/22 03/30/22 12:25 12:25 MCV MCH MCHC RDW Plt Count MPV Immature Gran % (Auto) Neut % (Auto) Lymph % (Auto) Kleberg % (Auto) Eos % (Auto) Baso % (Auto) Lymph # (Auto) Kleberg # (Auto) Eos # (Auto) Baso # (Auto) Abs Immat Gran (auto) Absolute Neuts (auto) Absolute Nucleated RBC Nucleated RBC % (auto) PT INR Anion Gap Estim Creat Clear Calc Estimated GFR Random Glucose Lactic Acid 1.5 Calcium Total Bilirubin Direct Bilirubin AST ALT Alkaline Phosphatase Total Protein Albumin Influenza Type A (PCR) NEGATIVE Influenza Type B (PCR) NEGATIVE RSV RNA Qual (PCR) NEGATIVE SARS-CoV-2 RNA (RT-PCR) NEGATIVE Imaging Radiologist's Impressions: Impressions Abdomen/Pelvis CT 03/30/22 15:20 IMPRESSION: Stable moderate right pleural effusion. Old granulomatous disease. Prominent azygos vein and chest wall varices. Splenomegaly. No evidence of bowel ileus or obstruction or obstructive uropathy. Large volume ascites. Chest CT 03/30/22 15:20 IMPRESSION: Stable moderate right pleural effusion. Old granulomatous disease. Prominent azygos vein and chest wall varices. Splenomegaly. No evidence of bowel ileus or obstruction or obstructive uropathy. Large volume ascites. Assessment and Plan (1) Ascites: Status: Acute (2) Primary biliary cholangitis: Status: Acute Plan 66-year-old female with past medical history of primary biliary cholangitis, s/p liver transplant--on tacrolimus 2015 ([facility]) with recurrence (stage 2-3 per Karen biopsy), HTN, anxiety, history of breast cancer status post lumpectomy, presents with shortness of breath to walk-in clinic. Subsequent chest x-ray demonstrated right pleural effusion and patient presented to emerge ncy room. CT scan abdomen and pelvis demonstrated a moderate but stable right pleural effusion with a large volume ascites. Call was placed to [facility] who advised workup be done at [facility] 1. Ascites/pleural effusion secondary to primary biliary cholangitis -admit to telemetry; schedule thoracentesis/paracentesis in a.m. -NPO after midnight -continue all outpatient therapies -consult GI -empirical ceftriaxone to cover SPEP pending tap Full code Sequentials Patient requires inpatient stay of 2 midnights going forward for IV antibiotic coverage for possible SBP and drainage of pleural effusion/ascites. This cannot be achieved a lesser acute setting Time Spent With Patient Time: Total time managing care of this patient today ____ minutes. Quality Stroke Does the patient have a stroke diagnosis?: No VTE Prior VTE?: No VTE Risk Level:: Medical - moderate - high VTE Device Contraindication: N/A - Device Ordered VTE Drug Contraindication: Treatment Not Indicated
[2022-03-30 18:20] LABS: INTERNATIONAL NORM RATIO 1.2 (0.9-1.1); Prothrombin Time 13.5 SEC (10.0-13.1)
[2022-03-30 18:35] LABS: Ammonia 44 umol/L (13-55)
--- NOTE | 2022-03-30 18:59 | PHA.MEDREC ---
Pharmacy Consult ? Medication Reconciliation Pharmacy has completed the medication reconciliation.
--- NOTE | 2022-03-30 19:26 | PC.NURSE ---
Took over care of the pt at 1900. Pt is A&Ox4 with daughter at the bedside. Pt had no complaints at time of interaction. Pt ambulated to the bathroom with steady gait and no signs of distress. Pt requested crackers and was given saltines with instructions to eat in small amounts. Pt waiting room assignment. No new orders at this time.
--- NOTE | 2022-03-30 21:16 | PC.NURSE ---
Report called to overflow, given to Ricky PYLE. Pt will be going to room 1
[2022-03-30 21:41] VITALS: BP 170/90; PULSE 115; RESP 19; TEMP 36.4; O2SAT 96
--- NOTE | 2022-03-30 21:42 | PC.NURSE ---
Pt resting quietly no needs expressed.
--- NOTE | 2022-03-30 22:04 | MHC.EDTECH ---
pt came from the ED, she is resting in bed with call jarquin and vitals were taken to be up to date, a pitcher of water was given
--- NOTE | 2022-03-30 22:30 | MHC.CM.PN ---
Pt sleeping soundly. Unable to complete CM assessment.
--- NOTE | 2022-03-30 23:10 | PC.NURSE ---
Pt ambulated to restroom, gait steady. No other needs expressed.
--- NOTE | 2022-03-31 02:17 | PC.NURSE ---
Pt sleeping respirations normal.
--- NOTE | 2022-03-31 02:34 | PC.NURSE ---
Pt ambulated to restroom, gait is steady.
[2022-03-31 02:37] VITALS: BP 175/82; PULSE 97; RESP 25; TEMP 36.4; O2SAT 96
--- NOTE | 2022-03-31 02:38 | MHC.EDTECH ---
pt ambulated to the BR and back to her , vitals were taken and entered she is resting again
--- NOTE | 2022-03-31 04:09 | PC.NURSE ---
Pt sleeping respirations regular.
--- NOTE | 2022-03-31 05:51 | PC.NURSE ---
Pt sleeping respirations regular. Pt in no apparent distress.
--- NOTE | 2022-03-31 06:00 | MHC.EDTECH ---
pt slept all night no issues she got up once throughout the night for the BR
[2022-03-31 07:19] LABS: MANUAL DIFF FLAG NO
[2022-03-31 07:20] VITALS: BP 156/88; PULSE 90; RESP 21; O2SAT 95
[2022-03-31 07:26] LABS: Basophils Percent Auto 0.2 % (0-2); Eosinophils Percent Auto 0.3 % (0-4); Hematocrit 35.9 % (37.0-47.0); Hemoglobin 11.6 g/dl (12.0-16.0); Imm Gran Abs Auto 0.03 X10*3/uL (0.00-0.03); Imm Gran Pct Auto 0.5 % (0.0-0.4); Lymphocytes Absolute Auto 0.6 X10*3/uL (1.2-4.9); Lymphocytes Percent Auto 9.6 % (20-40); Mean Corpuscular HGB Conc 32.3 g/dl (31.0-35.0); Mean Corpuscular Hemoglobin 29.7 pg (27.0-33.0); Mean Corpuscular Volume 92.1 fL (80.0-98.0); Monocytes Absolute Auto 0.5 X10*3/uL (0.1-1.2); Monocytes Percent Auto 8.4 % (2-11); Neutrophils Absolute Auto 4.7 x10*3/uL (2.0-8.3); Platelet Count 107 X10*3/uL (160-400); Red Cell Distribution Width 16.9 % (11.0-16.0); White Blood Count 5.9 X10*3/uL (4.8-10.8)
[2022-03-31 07:45] LABS: INTERNATIONAL NORM RATIO 1.2 (0.9-1.1); Prothrombin Time 13.5 SEC (10.0-13.1)
[2022-03-31 07:51] LABS: Alanine Aminotransferase 49 U/L (0-31); Albumin Level 3.4 g/dL (3.5-5.0); Alkaline Phosphatase 211 U/L (39-117); Anion Gap 11 (12-20); Aspartate Amino Transferase 47 U/L (5-31); Bilirubin Total 2.2 mg/dL (0.0-1.0); Blood Urea Nitrogen 10 mg/dL (9-16); Calcium 8.7 mg/dL (8.4-10.2); Carbon Dioxide 25 mmol/L (22-29); Chloride 107 mmol/L (96-108); Creatinine Clr Calc Pharmacy 74.8; Estimated Glomerular Filt Rate > 60; Glucose Fasting 112 mg/dL (60-99); Potassium 3.4 mmol/L (3.3-5.1); Sodium 140 mmol/L (135-145); Total Protein 6.2 g/dL (6.5-8.0)
--- NOTE | 2022-03-31 08:52 | P.CNGI_ITS ---
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 Patient had noted fever and chills for about 1 week then noted increased SOB so then sought medical help eventually coming to [place] ED. She also noted small amounts of yellowish sputum. Patient denies any dizziness, lightheadedness, abdominal pain, nausea, vomiting, blurry vision, double vision, loss of vision, chest pain, back pain, night sweats, pain with urination, There are no sick contacts. No recent travel. Imaging revealed right sided pleural effusion, and moderate ascites. Paracentesis revealed possible SBP with pos cell count 365 but this has actually improved from before. She has been taking budesonide as well for possible enteritis, as previous raised ascitic cell count thought to be due to possible enteritis. Review of Systems Review of Systems: As per HPI Constitutional: Constitutional: Reports no additional constitutional complaints, Denies chills, Denies fever(s) and Denies night sweats Eyes: Eyes: Reports no additional eye complaints, Denies blurry vision, Denies change in vision, Denies diplopia, Denies eye discharge, Denies loss of vision and Denies eye pain ENT: Denies dizziness Cardiovascular: Cardiovascular: Reports no additional cardiovascular complaints, Denies chest pain, Denies lightheadedness, Denies Loss of Con sciousness and Reports dyspnea Respiratory: Respiratory: Reports no additional respiratory complaints and Reports dyspnea Gastrointestinal: Gastrointestinal: Reports no additional gastrointestinal complaints, Denies abdominal pain, Denies melena, Denies hematochezia, Denies change in bowel habits and Denies change in stool character Genitourinary: Genitourinary: Reports no additional female genitourinary complaints Musculoskeletal: Musculoskeletal: Reports no additional musculoskeletal complaints, Denies numbness and Denies tingling Neurologic: Denies dizziness, Denies loss of vision, Denies numbness and Denies tingling Psychiatric: Psychiatric: Reports no additional psychiatric complaints Endocrine: Endocrine: Reports no additional endocrine complaints Hematologic/Lymphatic: Hematologic/Lymphatic: Reports no additional hematologic/lymphatic complaints Allergic/Immunologic: Allergic/Immunologic: Reports no additional allergi c/immunologic complaints [facility] Past Medical History Medical History (Updated 03/31/22 @ 15:52 by Kathy Galloway MD) Anemia Anxiety Breast cancer CHF (congestive heart failure) Chronic diarrhea HTN (hypertension) Pancytopenia Primary biliary cholangitis Tremor Family History Family History Mother CAD (coronary artery disease) Sister Ovarian cancer Mental health disorder Surgical History Surgical History H/O: hysterectomy Hx of colonoscopy Hx of esophagogastroduodenoscopy Liver transplant recipient S/P hip replacement Transplant recipient Social History Social History Household Members: Spouse Household Members Other:: , children Housing: House Do you presently have visiting nurse or other home services: No Alcohol intake: never Patient Tobacco Use Status: Never used Tobacco Smoked in Last 30 Days: No e-Cigarette/Vaping Use: Never Used Use of substances other than those prescribed or required for medical reasons: No Advance Directives: No Advance Directives Information Provided: Yes service: Yes Current occupational status: retired Cognitive needs: No Hearing needs: No Vision needs: Yes Meds Allergies Allergy/AdvReac Type Severity Reaction Status Date / Time hydromorphone [From Dilaudid] Allergy Severe Hallucinati Verified 03/30/22 08:40 ons losartan Allergy Intermediate Facial Verified 03/30/22 08:40 Swelling Sulfa (Sulfonamide AdvReac Severe Rash Verified 03/30/22 08:40 Antibiotics) Active Medications: Current Medications Cholestyramine Resin (Cholestyramine (With Sugar) 4 Gm Powd.Pack) 4 gm PO BEDTIME [facility] Escitalopram Oxalate (Escitalopram Oxalate 20 Mg Tablet) 20 mg PO DAILY [facility] Furosemide (Furosemide 20 Mg Tablet) 20 mg PO DAILY [facility]; Protocol Gabapentin (Gabapentin 300 Mg Capsule) 600 mg PO BEDTIME [facility] Ceftriaxone Sodium 1 gm/ (Sodium Chloride) 50 mls @ 100 mls/hr IV Q24H [facility] Doxycycline Hyclate 100 mg/ (Sodium Chloride) 250 mls @ 166.67 mls/hr IV Q12H [facility] Non-Formulary Medication (Budesonide) 9 mg PO DAILY [facility] Omeprazole (Omeprazole 20 Mg Capsule.) 20 mg PO DAILY@0630 [facility] Pharmacy Consult (Consult Rx Perform Med Rec) 1 each MISCELLANE ONCE PRN PRN Reason: Consult order Sodium Chloride (0.9 % Sodium Chloride Flush 3 Ml Syringe) 3 ml IVFLUSH QSHIFT [facility] Last Admin: 03/31/22 00:11 Dose: Not Given Tacrolimus (Tacrolimus 0.5 Mg Capsule) 0.5 mg PO BID [facility] Ursodiol (Ursodiol 300 Mg Capsule) 600 mg PO BID [facility] Physical Exam Vital Signs: Vital Signs: Last Vital Signs Temp 97.6 F 03/31/22 02:37 Pulse 90 03/31/22 07:20 Resp 21 H 03/31/22 07:20 BP 156/88 H 03/31/22 07:20 Pulse Ox 95 03/31/22 07:20 O2 Del Method 03/31/22 07:20 BMI result Body Mass Index 26.2 Const: Other: Awake alert no acute distress General: cooperative, no acute distress, alert and awake Nutritional Appearance: well nourished Orientation/consciousness: patient oriented x3 Limitations: no limitations HEENT: Head: Yes normal to inspection and Yes atraumatic Ears: hearing grossly normal bilaterally and external ears normal General nose exam: Normal external nose present, no nasal discharge noted and no epistaxis Face and sinus: Yes normal facial exam, No abrasion and No laceration Mouth: Normal oral and palatal mucosa present, no drooling and no muffled voice Eyes: Other: mild icterus General: appearance normal, both eyes and all related structures Periorbital: periorbital findings normal Eyelids: Yes eyelids normal Conjunctivae: conjunctivae normal Pupils: Equal, round and reactive pupils present EOM: EOMs intact bilaterally Neck: Neck: Yes normal visual inspection, Yes full ROM and Yes no lymphadenopathy Chest: Chest palpation & inspection: normal inspection of the chest Resp: Other: Diminished at bases with rhonchi throughout the clear with cough. Dull to percussion right base Effort & Inspection: able to speak in complete sentences and tachypneic Auscultation: diminished lung sounds on the right in the lower lung hugo Cardio: Other: No S4; positive S1-S2; no S3 murmurs rubs or gallops GI: Other: Soft nontender fluid wave noted; normoactive bowel sounds Inspection: Yes distended Palpation (GI): Soft to palpation, not firm, nontender, no guarding and not rigid Percussion: Yes dullness to percussion Auscultation: normal bowel sounds Neuro: General: patient oriented x3 and moves all extremities Cranial nerves: Yes Equal, round and reactive pupils present Cognition (Neuro): normal cognition Motor exam (neuro): 5/5 motor strength present throughout Sensory Exam: Normal double simultaneous stimulation for sensation Coordination: [id number] test normal Extrem: Other: No edema bilaterally General: Yes normal to inspection, Yes full ROM and Yes capillary refill normal Psych: Appearance: grossly normal Mental Status: mental status grossly normal Affect: normal affect Attitude: cooperative Thought process: Normal thought process present Thought content: Normal thought content present Insight: Good insight present (Psych) Results Labs CBC & Chem 7: 03/31/22 06:30 03/31/22 06:30 Labs: Short CBC 03/30/22 03/31/22 Range/Units 12:25 06:30 WBC 6.8 5.9 (4.8-10.8) X10*3/uL Hgb 12.1 11.6 L (12.0-16.0) g/dl Hct 38.6 35.9 L (37.0-47.0) % Plt Count 118 L 107 L (160-400) X10*3/uL BMP 03/30/22 03/31/22 12:25 06:30 Sodium 142 140 Potassium 3.5 3.4 Chloride 109 H 107 Carbon Dioxide 25 25 BUN 15 D 10 Creatinine 0.67 0.57 Calcium 9.2 8.7 Liver Function 03/30/22 03/31/22 Range/Units 12:25 06:30 Total Bilirubin 2.0 H 2.2 H (0.0-1.0) mg/dL Direct Bilirubin 1.2 H (0.0-0.5) mg/dL AST 44 H D 47 H (5-31) U/L ALT 48 H 49 H (0-31) U/L Alkaline Phosphatase 218 H D 211 H (39-117) U/L Albumin 3.7 3.4 L (3.5-5.0) g/dL Imaging CT scan - abdomen: My impression: right sided pleural effusion, ascitrs, cirrhotic appearing liver Assessment and Plan (1) Primary biliary cholangitis: Status: Acute (2) Ascites: Qualifiers: Ascites type: other type Qualified Code(s): R18.8 - Other ascites Status: Acute (3) Pleural effusion: Status: Acute Plan 1/ Increasing SOB with pleural effusion preceded by fevers, also with productive sputum, suspect para-pneumonic effusion as opposed to hepatic hydrothorax. ECHO from 01/2022 with good EF and cardiac function. Covid and flu, rsv neg 2/ Recurrent culture neg neutrocytic ascites, possibly related to enteritis PLAN: 1/ Await cultures if pos then treat accordingly 2/ can cont with budesonide and diuretic as doing 3/ cont with tacrolimus 4/ chest percussion and incentive spirometry, Time Spent With Patient Time: Total time managing care of this patient today ____ minutes. Procedures Date of Service Date of Service: 03/31/22
[2022-03-31] MEDS: 0.9 % Sodium Chloride Flush 3 ML SYRINGE IVFLUSH ×2 (09:25→20:54)
[2022-03-31] MEDS: Doxycycline Hyclate 100 MG in 0.9 % Sodium Chloride 250 ML 166.67 MG IV ×2 (09:26→20:54)
[2022-03-31] MEDS: Escitalopram Oxalate 20 MG TABLET PO (10:49)
[2022-03-31] MEDS: Furosemide 20 MG TABLET PO (10:49)
[2022-03-31] MEDS: LORazepam 1 MG TABLET PO (11:09)
[2022-03-31] MEDS: UrsodioL 300 MG CAPSULE 600 MG PO ×2 (11:09→20:54)
[2022-03-31] MEDS: Tacrolimus 0.5 MG CAPSULE PO ×2 (11:09→20:54)
--- NOTE | 2022-03-31 11:49 | PC.NURSE ---
Bedside US guided paracentesis. patient given one time dose of ativan to help with anxiety.
[2022-03-31] MEDS: Lidocaine HCl 1 % MPF 5 ML VIAL SUBCUT ×2 (12:10→12:29)
--- NOTE | 2022-03-31 12:19 | HO.RADPN ---
RADIOLOGY Narrative Narrative: US guided right thoracentesis and llQ paracentesis performed. 400 mL serosanguinous fluid removed from right chest and 3L clear yellow fluid removed from LLQ. Specimens sent as ordered from both samples.
--- NOTE | 2022-03-31 12:33 | MHC.CM.PN ---
pt lives with they are indepedent she is covid vacinated has a ride dcplan home no servceis
[2022-03-31 12:36] VITALS: BP 139/81; PULSE 103; RESP 17; O2SAT 97
[2022-03-31 13:08] LABS: MN% 91.5 %; PMN% 8.5 %; RBC Pleural Fluid 0.002 X10*3/uL; WBC Pleural Fluid 0.202 X10*3/uL
[2022-03-31 13:10] LABS: MN% 48.1 %; PMN% 51.9 %; WBC Peritoneal Fluid 0.565 X10*3/uL
[2022-03-31 13:11] LABS: RBC Peritoneal Fluid < 0.002 X10*6/uL
[2022-03-31 13:49] LABS: BF Shift QC OK YES; Basophils Pleural Fluid 0 %; Eosinophils Pleural Fluid 0 %; Lymphocytes Pleural Fluid 68 %; Monocytes Pleural Fluid 6 %; Neutrophils Pleural Fluid 9 %; Other Cells Plerual Fl 17 %
[2022-03-31 13:50] LABS: BF Shift QC OK YES; Basophils Peritoneal Fl 0 %; Eosinophils Peritoneal Fl 0 %; Lymphocyte Peritoneal Fl 8 %; Monocytes Peritoneal Fl 5 %; Neutrophils Peritoneal Fluid 71 %; Other Peritioneal Fl 16 %
--- NOTE | 2022-03-31 15:00 | HO.PM.IMPN ---
Subjective Subjective Date of Service: 03/31/22 Interval History: Feels better overall after tap Review of Systems As per HPI Physical Exam Vital Signs: Vital Signs: Last Vital Signs Temp 97.6 F 03/31/22 02:37 Pulse 103 H 03/31/22 12:36 Resp 17 03/31/22 12:36 BP 139/81 03/31/22 12:36 Pulse Ox 97 03/31/22 12:36 O2 Del Method 03/31/22 12:36 BMI result Body Mass Index 26.2 Const: Other: Awake alert no acute distress Resp: Other: Diminished at bases with rhonchi throughout the clear with cough. Dull to percussion right base Cardio: Other: No S4; positive S1-S2; no S3 murmurs rubs or gallops GI: Other: Soft nontender fluid wave noted; normoactive bowel sounds Extrem: Other: No edema bilaterally Objective Data Active Medications Cholestyramine Resin (Cholestyramine (With Sugar) 4 Gm Powd.Pack) 4 gm PO BEDTIME [facility] Escitalopram Oxalate (Escitalopram Oxalate 20 Mg Tablet) 20 mg PO DAILY [facility] Last Admin: 03/31/22 10:49 Dose: 20 mg Documented By: MARY Furosemide (Furosemide 20 Mg Tablet) 20 mg PO DAILY [facility]; Protocol Last Admin: 03/31/22 10:49 Dose: 20 mg Documented By: MARY Gabapentin (Gabapentin 300 Mg Capsule) 600 mg PO BEDTIME [facility] Ceftriaxone Sodium 1 gm/ (Sodium Chloride) 50 mls @ 100 mls/hr IV Q24H [facility] Doxycycline Hyclate 100 mg/ (Sodium Chloride) 250 mls @ 166.67 mls/hr IV Q12H [facility] Last Infusion: 03/31/22 11:18 Dose: 0 mls/hr Documented By: MARY Non-Formulary Medication (Budesonide) 9 mg PO DAILY [facility] Omeprazole (Omeprazole 20 Mg Capsule.) 20 mg PO DAILY@0630 [facility] Pharmacy Consult (Consult Rx Perform Med Rec) 1 each MISCELLANE ONCE PRN PRN Reason: Consult order Sodium Chloride (0.9 % Sodium Chloride Flush 3 Ml Syringe) 3 ml IVFLUSH QSHIFT [facility] Last Admin: 03/31/22 15:00 Dose: Not Given Documented By: MARY Non-Admin Reason: Previously Administered Tacrolimus (Tacrolimus 0.5 Mg Capsule) 0.5 mg PO BID [facility] Last Admin: 03/31/22 11:09 Dose: 0.5 mg Documented By: MARY Ursodiol (Ursodiol 300 Mg Capsule) 600 mg PO BID [facility] Last Admin: 03/31/22 11:09 Dose: 600 mg Documented By: MARY Labs CBC & Chem 7: 03/31/22 06:30 03/31/22 06:30 Labs: Laboratory Results - last 24 hr 03/30/22 03/30/22 03/31/22 18:09 18:22 06:30 MCV 92.1 MCH 29.7 MCHC 32.3 RDW 16.9 H Plt Count 107 L MPV 10.0 Immature Gran % (Auto) 0.5 H Neut % (Auto) 81.0 H Lymph % (Auto) 9.6 L [place] % (Auto) 8.4 Eos % (Auto) 0.3 Baso % (Auto) 0.2 Lymph # (Auto) 0.6 L [place] # (Auto) 0.5 Eos # (Auto) 0.0 Baso # (Auto) 0.0 Abs Immat Gran (auto) 0.03 Absolute Neuts (auto) 4.7 Absolute Nucleated RBC 0.000 Nucleated RBC % (auto) 0.0 PT 13.5 H INR 1.2 H Anion Gap Estim Creat Clear Calc Estimated GFR Fasting Glucose Calcium Total Bilirubin AST ALT Alkaline Phosphatase Ammonia 44 Total Protein Albumin Peritoneal WBC Peritoneal RBC Periton Neutrophils Periton Lymphocytes Peritoneal Monocytes Peritoneal Eosinophils Peritoneal Basophils Peritoneal Other Cells Pleural WBC Pleural RBC Pleural Neutrophils Pleural Lymphocytes Pleural Monocytes Pleural Eosinophils Pleural Basophils Pleural Other Cells 03/31/22 03/31/22 03/31/22 06:30 06:30 11:20 MCV MCH MCHC RDW Plt Count MPV Immature Gran % (Auto) Neut % (Auto) Lymph % (Auto) [place] % (Auto) Eos % (Auto) Baso % (Auto) Lymph # (Auto) [place] # (Auto) Eos # (Auto) Baso # (Auto) Abs Immat Gran (auto) Absolute Neuts (auto) Absolute Nucleated RBC Nucleated RBC % (auto) PT 13.5 H INR 1.2 H Anion Gap 11 L Estim Creat Clear Calc 74.8 Estimated GFR > 60 Fasting Glucose 112 H Calcium 8.7 Total Bilirubin 2.2 H AST 47 H ALT 49 H Alkaline Phosphatase 211 H Ammonia Total Protein 6.2 L Albumin 3.4 L Peritoneal WBC Peritoneal RBC Periton Neutrophils Periton Lymphocytes Peritoneal Monocytes Peritoneal Eosinophils Peritoneal Basophils Peritoneal Other Cells Pleural WBC 0.202 Pleural RBC 0.002 Pleural Neutrophils 9 Pleural Lymphocytes 68 Pleural Monocytes 6 Pleural Eosinophils 0 Pleural Basophils 0 Pleural Other Cells 17 03/31/22 11:30 MCV MCH MCHC RDW Plt Count MPV Immature Gran % (Auto) Neut % (Auto) Lymph % (Auto) [place] % (Auto) Eos % (Auto) Baso % (Auto) Lymph # (Auto) [place] # (Auto) Eos # (Auto) Baso # (Auto) Abs Immat Gran (auto) Absolute Neuts (auto) Absolute Nucleated RBC Nucleated RBC % (auto) PT INR Anion Gap Estim Creat Clear Calc Estimated GFR Fasting Glucose Calcium Total Bilirubin AST ALT Alkaline Phosphatase Ammonia Total Protein Albumin Peritoneal WBC 0.565 Peritoneal RBC < 0.002 Periton Neutrophils 71 Periton Lymphocytes 8 Peritoneal Monocytes 5 Peritoneal Eosinophils 0 Peritoneal Basophils 0 Peritoneal Other Cells 16 Pleural WBC Pleural RBC Pleural Neutrophils Pleural Lymphocytes Pleural Monocytes Pleural Eosinophils Pleural Basophils Pleural Other Cells Microbiology Microbiology Results: Microbiology 03/30/22 12:25 Blood Culture - Preliminary Blood - Venous No growth after 24 hours. Assessment and Plan (1) Primary biliary cholangitis: Status: Acute (2) Ascites: Status: Acute Plan 66-year-old female with past medical history of primary biliary cholangitis, s/p liver transplant--on tacrolimus 2015 ([facility]) with recurrence (stage 2-3 per [facility]), HTN, anxiety, history of breast cancer status post lumpectomy, presents with shortness of breath to walk-in clinic. Subsequent chest x-ray demonstrated right pleural effusion and patient presented to emergency room. CT scan abdomen and pelvis demonstrated a moderate but stable right pleural effusion with a large volume ascites. Call was placed to [facility] who advised workup be done at [facility]. Ascites/pleural effusion secondary to primary biliary cholangitis -improved after tap -empirical ceftriaxone to cover SPEP pending pending cell count Full code Sequentials Patient requires inpatient stay of 2 midnights going forward for IV antibiotic coverage for possible SBP and drainage of pleural effusion/ascites. This cannot be achieved a lesser acute setting Time Spent With Patient Time: Total time managing care of this patient today ____ minutes. Quality Stroke Does the patient have a stroke diagnosis?: No VTE Prior VTE?: No VTE Risk Level:: Medical - moderate - high VTE Device Contraindication: N/A - Device Ordered VTE Drug Contraindication: Treatment Not Indicated
[2022-03-31 16:00] VITALS: BP 132/79; PULSE 112; RESP 18; TEMP 36.9; O2SAT 96
[2022-03-31 17:18] VITALS: BMI 26.2
[2022-03-31] MEDS: cefTRIAXone sodium 1 GM in 0.9 % Sodium Chloride 50 ML IV (17:49)
[2022-03-31 19:24] VITALS: BP 114/69; PULSE 111; RESP 18; TEMP 37.6; O2SAT 95
[2022-03-31] MEDS: Cholestyramine (With Sugar) 4 GM POWD.PACK PO (20:54)
[2022-03-31] MEDS: Gabapentin 300 MG CAPSULE 600 MG PO (20:54)
[2022-03-31 23:15] VITALS: BP 157/88; PULSE 116; RESP 18; TEMP 37.6; O2SAT 91
[2022-03-31 23:44] LABS: Albumin Peritoneal Fluid 1.1 GM/DL; Glucose Peritoneal Fluid 116 MG/DL; Total Protein Peritoneal Fluid 2.1 GM/DL
[2022-04-01 03:07] VITALS: BP 123/71; PULSE 111; RESP 18; TEMP 36.7; O2SAT 93
[2022-04-01] MEDS: Omeprazole 20 MG CAPSULE.DR PO (06:21)
[2022-04-01 06:31] LABS: MANUAL DIFF FLAG NO
[2022-04-01 06:36] LABS: Basophils Percent Auto 0.3 % (0-2); Eosinophils Absolute Auto 0.1 X10*3/uL (0.0-0.4); Eosinophils Percent Auto 1.5 % (0-4); Hematocrit 38.5 % (37.0-47.0); Hemoglobin 12.3 g/dl (12.0-16.0); Imm Gran Abs Auto 0.04 X10*3/uL (0.00-0.03); Imm Gran Pct Auto 0.6 % (0.0-0.4); Lymphocytes Percent Auto 15.6 % (20-40); Mean Corpuscular HGB Conc 31.9 g/dl (31.0-35.0); Mean Corpuscular Hemoglobin 29.6 pg (27.0-33.0); Mean Corpuscular Volume 92.5 fL (80.0-98.0); Mean Platelet Volume 9.8 fL (9.4-12.3); Monocytes Absolute Auto 0.8 X10*3/uL (0.1-1.2); Neutrophils Absolute Auto 4.5 x10*3/uL (2.0-8.3); Platelet Count 117 X10*3/uL (160-400); Red Blood Count 4.16 X10*6/uL (4.20-5.50); Red Cell Distribution Width 16.9 % (11.0-16.0); White Blood Count 6.5 X10*3/uL (4.8-10.8)
[2022-04-01 06:40] LABS: INTERNATIONAL NORM RATIO 1.1 (0.9-1.1); Prothrombin Time 13.2 SEC (10.0-13.1)
[2022-04-01 06:57] LABS: Alanine Aminotransferase 45 U/L (0-31); Alkaline Phosphatase 226 U/L (39-117); Anion Gap 11 (12-20); Aspartate Amino Transferase 42 U/L (5-31); Bilirubin Total 1.5 mg/dL (0.0-1.0); Blood Urea Nitrogen 17 mg/dL (9-16); Calcium 8.9 mg/dL (8.4-10.2); Carbon Dioxide 26 mmol/L (22-29); Chloride 111 mmol/L (96-108); Creatinine Clr Calc Pharmacy 64.6; Estimated Glomerular Filt Rate > 60; Glucose Fasting 107 mg/dL (60-99); Potassium 3.4 mmol/L (3.3-5.1); Sodium 145 mmol/L (135-145); Total Protein 5.6 g/dL (6.5-8.0)
[2022-04-01 07:44] VITALS: BP 154/81; PULSE 98; RESP 20; TEMP 37.2; O2SAT 94
[2022-04-01] MEDS: Furosemide 20 MG TABLET PO (08:48)
[2022-04-01] MEDS: Tacrolimus 0.5 MG CAPSULE PO ×2 (08:48→22:17)
[2022-04-01] MEDS: Escitalopram Oxalate 20 MG TABLET PO (08:48)
[2022-04-01] MEDS: 0.9 % Sodium Chloride Flush 3 ML SYRINGE IVFLUSH ×3 (08:48→22:17)
[2022-04-01] MEDS: UrsodioL 300 MG CAPSULE 600 MG PO ×2 (08:48→22:17)
[2022-04-01] MEDS: Doxycycline Hyclate 100 MG in 0.9 % Sodium Chloride 250 ML 166.67 MG IV ×2 (08:48→22:47)
[2022-04-01 12:00] VITALS: BP 140/83; PULSE 112; RESP 18; TEMP 37.8; O2SAT 94
--- NOTE | 2022-04-01 15:14 | P.PNIM_ITS ---
Subjective Subjective Date of Service: 04/01/22 Interval History: Still with mild shortness of breath however abdomen feels better Review of Systems Denies chest pain Denies shortness of breath Denies nausea vomiting diarrhea Physical Exam Vital Signs: Vital Signs: Last Vital Signs Temp 100.0 F 04/01/22 12:00 Pulse 112 H 04/01/22 12:00 Resp 18 04/01/22 12:00 BP 140/83 H 04/01/22 12:00 Pulse Ox 94 04/01/22 12:00 O2 Del Method 04/01/22 12:00 BMI result Body Mass Index 26.2 Const: Other: Awake alert no acute distress Resp: Other: Diminished at bases with rhonchi throughout the clear with cough. Cardio: Other: No S4; positive S1-S2; no S3 murmurs rubs or gallops GI: Other: Soft nontender fluid wave noted; normoactive bowel sounds Extrem: Other: No edema bilaterally Objective Data Active Medications Cholestyramine Resin (Cholestyramine (With Sugar) 4 Gm Powd.Pack) 4 gm PO BED TIME [facility] Last Admin: 03/31/22 20:54 Dose: 4 gm Documented By: AJAY Escitalopram Oxalate (Escitalopram Oxalate 20 Mg Tablet) 20 mg PO DAILY [facility] Last Admin: 04/01/22 08:48 Dose: 20 mg Documented By: VEENA Furosemide (Furosemide 20 Mg Tablet) 20 mg PO DAILY [facility]; Protocol Last Admin: 04/01/22 08:48 Dose: 20 mg Documented By: VEENA Gabapentin (Gabapentin 300 Mg Capsule) 600 mg PO BEDTIME [facility] Last Admin: 03/31/22 20:54 Dose: 600 mg Documented By: AJAY Ceftriaxone Sodium 1 gm/ (Sodium Chloride) 50 mls @ 100 mls/hr IV Q24H [facility] Last Infusion: 03/31/22 19:35 Dose: 0 mls/hr Documented By: VEENA Doxycycline Hyclate 100 mg/ (Sodium Chloride) 250 mls @ 166.67 mls/hr IV Q12H [facility] Last Infusion: 04/01/22 11:34 Dose: 0 mls/hr Documented By: VEENA Non-Formulary Medication (Budesonide) 9 mg PO DAILY [facility] Omeprazole (Omeprazole 20 Mg Capsule.) 20 mg PO DAILY@0630 [facility] Last Admin: 12/31/22 06:21 Dose: 20 mg Documented By: AJAY Pharmacy Consult (Consult Rx Perform Med Rec) 1 each MISCELLANE ONCE PRN PRN Reason: Consult order Sodium Chloride (0.9 % Sodium Chloride Flush 3 Ml Syringe) 3 ml IVFLUSH QSHIFT [facility] Last Admin: 04/01/22 08:48 Dose: 3 ml Documented By: VEENA Tacrolimus (Tacrolimus 0.5 Mg Capsule) 0.5 mg PO BID [facility] Last Admin: 04/01/22 08:48 Dose: 0.5 mg Documented By: VEENA Ursodiol (Ursodiol 300 Mg Capsule) 600 mg PO BID [facility] Last Admin: 04/01/22 08:48 Dose: 600 mg Documented By: VEENA Labs CBC & Chem 7: 04/01/22 06:05 04/01/22 06:05 Labs: Laboratory Results - last 24 hr 03/31/22 03/31/22 04/01/22 11:20 11:30 06:05 MCV 92.5 MCH 29.6 MCHC 31.9 RDW 16.9 H Plt Count 117 L MPV 9.8 Immature Gran % (Auto) 0.6 H Neut % (Auto) 70.0 Lymph % (Auto) 15.6 L [place] % (Auto) 12.0 H Eos % (Auto) 1.5 Baso % (Auto) 0.3 Lymph # (Auto) 1.0 L [place] # (Auto) 0.8 Eos # (Auto) 0.1 Baso # (Auto) 0.0 Abs Immat Gran (auto) 0.04 H Absolute Neuts (auto) 4.5 Absolute Nucleated RBC 0.000 Nucleated RBC % (auto) 0.0 PT INR Anion Gap Estim Creat Clear Calc Estimated GFR Fasting Glucose Calcium Total Bilirubin AST ALT Alkaline Phosphatase Total Protein Albumin Peritoneal Tot Protein 2.1 Peritoneal Albumin 1.1 Peritoneal Glucose 116 Pleural Total Protein 4.0 04/01/22 04/01/22 06:05 06:05 MCV MCH MCHC RDW Plt Count MPV Immature Gran % (Auto) Neut % (Auto) Lymph % (Auto) [place] % (Auto) Eos % (Auto) Baso % (Auto) Lymph # (Auto) [place] # (Auto) Eos # (Auto) Baso # (Auto) Abs Immat Gran (auto) Absolute Neuts (auto) Absolute Nucleated RBC Nucleated RBC % (auto) PT 13.2 H INR 1.1 Anion Gap 11 L Estim Creat Clear Calc 64.6 Estimated GFR > 60 Fasting Glucose 107 H Calcium 8.9 Total Bilirubin 1.5 H AST 42 H ALT 45 H Alkaline Phosphatase 226 H Total Protein 5.6 L Albumin 3.0 L Peritoneal Tot Protein Peritoneal Albumin Peritoneal Glucose Pleural Total Protein Microbiology Microbiology Results: Microbiology 03/30/22 12:25 Blood Culture - Preliminary Blood - Venous No growth after 48 hours. 03/31/22 11:20 Gram Stain - Final Ascites Fluid Anaerobic Culture - Preliminary No growth to date. Body Fluid Culture - Preliminary No growth after 1 day 03/31/22 11:30 Gram Stain - Final Thoracentesis Fluid Anaerobic Culture - Preliminary No growth to date. Body Fluid Culture - Preliminary No growth after 1 day 03/30/22 14:27 Blood Culture - Preliminary Blood - Venous No growth after 24 hours. Assessment and Plan (1) Primary biliary cholangitis: Status: Acute (2) Ascites: Status: Acute Plan 66-year-old female with past medical history of primary biliary cholangitis, s/p liver transplant--on tacrolimus 2015 ([facility]) with recurrence (stage 2-3 per [facility]), HTN, anxiety, history of breast cancer status post lumpectomy, presents with shortness of breath to walk-in clinic. Subsequent chest x-ray demonstrated right pleural effusion and patient presented to emergency room. CT scan abdomen and pelvis demonstrated a moderate but stable right pleural effusion with a large volume ascites. Call was placed to [facility] who advised workup be done at [facility]. Ascites/pleural effusion secondary to primary biliary cholangitis -improved after tap -empirical ceftriaxone to cover SBP.. (chronic) -D/C on Ceftin in am Full code Sequentials Patient requires inpatient stay of 2 midnights going forward for IV antibiotic coverage for possible SBP and drainage of pleural effusion/ascites. This cannot be achieved a lesser acute setting Time Spent With Patient Time: Total time managing care of this patient today ____ minutes. Quality Stroke Does the patient have a stroke diagnosis?: No VTE Prior VTE?: No VTE Risk Level:: Medical - moderate - high VTE Device Contraindication: N/A - Device Ordered VTE Drug Contraindication: Treatment Not Indicated
[2022-04-01 15:35] VITALS: BP 106/77; PULSE 108; RESP 19; TEMP 36.3; O2SAT 92
[2022-04-01] MEDS: cefTRIAXone sodium 1 GM in 0.9 % Sodium Chloride 50 ML IV (17:06)
[2022-04-01 19:48] VITALS: BP 120/68; PULSE 115; RESP 19; TEMP 36.3; O2SAT 92
[2022-04-01 19:54] VITALS: BP 120/68; PULSE 115; RESP 19; TEMP 36.3; O2SAT 92
[2022-04-01] MEDS: Gabapentin 300 MG CAPSULE 600 MG PO (22:17)
[2022-04-01] MEDS: guaiFENesin 100 MG/5 ML LIQUID PO (22:52)
[2022-04-02] VITALS (7 sets, daily range): BP systolic 112–138; BP diastolic 64–82; PULSE 84–118; RESP 15–20; TEMP 36.7–37.2; O2SAT 92–97
[2022-04-02 06:14] LABS: Hemoglobin 12.4 g/dl (12.0-16.0); Mean Corpuscular Hemoglobin 29.7 pg (27.0-33.0); PLT CLUMP 1; Red Blood Count 4.18 X10*6/uL (4.20-5.50); SCAN SMEAR FLAG 1
[2022-04-02 06:16] LABS: Basophils Percent Auto 0.6 % (0-2); Eosinophils Absolute Auto 0.1 X10*3/uL (0.0-0.4); Eosinophils Percent Auto 1.7 % (0-4); Hematocrit 38.3 % (37.0-47.0); Imm Gran Abs Auto 0.06 X10*3/uL (0.00-0.03); Imm Gran Pct Auto 0.9 % (0.0-0.4); Lymphocytes Absolute Auto 1.1 X10*3/uL (1.2-4.9); Lymphocytes Percent Auto 17.8 % (20-40); MANUAL DIFF FLAG NO; Mean Corpuscular HGB Conc 32.4 g/dl (31.0-35.0); Mean Corpuscular Volume 91.6 fL (80.0-98.0); Mean Platelet Volume 10.3 fL (9.4-12.3); Monocytes Absolute Auto 0.8 X10*3/uL (0.1-1.2); Monocytes Percent Auto 12.8 % (2-11); Neutrophils Absolute Auto 4.2 x10*3/uL (2.0-8.3); Neutrophils Percent Auto 66.2 % (45-73); Platelet Count 109 X10*3/uL (160-400); Red Cell Distribution Width 16.9 % (11.0-16.0); White Blood Count 6.3 X10*3/uL (4.8-10.8)
[2022-04-02 06:18] LABS: INTERNATIONAL NORM RATIO 1.2 (0.9-1.1); Prothrombin Time 13.7 SEC (10.0-13.1)
[2022-04-02] MEDS: Omeprazole 20 MG CAPSULE.DR PO (06:37)
[2022-04-02 06:43] LABS: Alanine Aminotransferase 40 U/L (0-31); Albumin Level 2.8 g/dL (3.5-5.0); Alkaline Phosphatase 199 U/L (39-117); Anion Gap 10 (12-20); Aspartate Amino Transferase 37 U/L (5-31); Bilirubin Total 2.1 mg/dL (0.0-1.0); Blood Urea Nitrogen 17 mg/dL (9-16); Calcium 8.4 mg/dL (8.4-10.2); Carbon Dioxide 25 mmol/L (22-29); Chloride 110 mmol/L (96-108); Creatinine Clr Calc Pharmacy 63.7; Estimated Glomerular Filt Rate > 60; Glucose Fasting 98 mg/dL (60-99); Potassium 3.3 mmol/L (3.3-5.1); Sodium 142 mmol/L (135-145); Total Protein 5.4 g/dL (6.5-8.0)
[2022-04-02] MEDS: Escitalopram Oxalate 20 MG TABLET PO (08:38)
[2022-04-02] MEDS: Tacrolimus 0.5 MG CAPSULE PO ×2 (08:38→20:29)
[2022-04-02] MEDS: Furosemide 20 MG TABLET PO (08:38)
[2022-04-02] MEDS: UrsodioL 300 MG CAPSULE 600 MG PO ×2 (08:38→20:28)
[2022-04-02] MEDS: Doxycycline Hyclate 100 MG in 0.9 % Sodium Chloride 250 ML 166.67 MG IV ×2 (08:39→20:25)
[2022-04-02] MEDS: 0.9 % Sodium Chloride Flush 3 ML SYRINGE IVFLUSH ×3 (08:40→20:31)
[2022-04-02 08:45] LABS: C Reactive Protein 4.47 mg/dL (< or = 0.50)
[2022-04-02 09:08] LABS: Procalcitonin 0.12 ng/mL
[2022-04-02] MEDS: Benzonatate 100 MG CAPSULE 200 MG PO (11:37)
[2022-04-02] MEDS: Acetaminophen 325 MG TABLET PO ×2 (11:37→22:05)
--- NOTE | 2022-04-02 13:13 | HO.PM.IMPN ---
Subjective Subjective Date of Service: 04/02/22 Interval History: c/o cough + dyspnea abd less swollen no fever Review of Systems Review of Systems: Yes all other systems are reviewed and are negative Physical Exam Vital Signs: Vital Signs: Last Vital Signs Temp 98.0 F 04/02/22 10:59 Pulse 107 H 04/02/22 10:59 Resp 20 04/02/22 10:59 BP 137/82 04/02/22 10:59 Pulse Ox 97 04/02/22 10:59 O2 Del Method 04/02/22 10:59 BMI result Body Mass Index 26.2 Gen: in no acute distress HEENT: sclera anicteric, moist mucus membranes Neck: supple Lungs: scattered rhonchi Heart: regular rate and rhythm, no murmurs Abd: soft, non-tense ascites Ext: no edema Skin: warm/well-perfused Neuro: alert and oriented x3, no focal findings Psych: appropriate affect Objective Data Active Medications Acetaminophen (Acetaminophen 325 Mg Tablet) 325 mg PO Q4H PRN PRN Reason: mild-mod pain Last Admin: 04/02/22 11:37 Dose: 325 mg Documented By: MARY Benzonatate (Benzonatate 100 Mg Capsule) 200 mg PO TID PRN PRN Reason: cough Last Admin: 04/02/22 11:37 Dose: 200 mg Documented By: MARY Escitalopram Oxalate (Escitalopram Oxalate 20 Mg Tablet) 20 mg PO DAILY [facility] Last Admin: 04/02/22 08:38 Dose: 20 mg Documented By: MARY Furosemide (Furosemide 20 Mg Tablet) 20 mg PO DAILY [facility]; Protocol Last Admin: 04/02/22 08:38 Dose: 20 mg Documented By: MARY Gabapentin (Gabapentin 300 Mg Capsule) 600 mg PO BEDTIME [facility] Last Admin: 04/01/22 22:17 Dose: 600 mg Documented By: AJAY Guaifenesin (Guaifenesin 100 Mg/5 Ml Liquid) 5 ml PO Q4H PRN PRN Reason: cough Last Admin: 04/01/22 22:52 Dose: 5 ml Documented By: AJAY Ceftriaxone Sodium 1 gm/ (Sodium Chloride) 50 mls @ 100 mls/hr IV Q24H [facility] Last Infusion: 04/01/22 18:04 Dose: 0 mls/hr Documented By: VEENA Doxycycline Hyclate 100 mg/ (Sodium Chloride) 250 mls @ 166.67 mls/hr IV Q12H [facility] Last Infusion: 04/02/22 10:16 Dose: 0 mls/hr Documented By: MARY Non-Formulary Medication (Budesonide) 9 mg PO DAILY [facility] Pt Own (Colesevelam (625 Mg 1,250 Mg)) 1,250 mg PO BID [facility] Last Admin: 04/02/22 08:44 Dose: 1,250 mg Documented By: MARY Non-Formulary Medication (Colesevelam) 2 tab PO DAILY [facility] Omeprazole (Omeprazole 20 Mg Capsule.Dr) 20 mg PO DAILY@0630 [facility] Last Admin: 04/02/22 06:37 Dose: 20 mg Documented By: AJAY Pharmacy Consult (Consult Rx Perform Med Rec) 1 each MISCELLANE ONCE PRN PRN Reason: Consult order Sodium Chloride (0.9 % Sodium Chloride Flush 3 Ml Syringe) 3 ml IVFLUSH QSHIFT [facility] Last Admin: 04/02/22 08:40 Dose: 3 ml Documented By: MARY Tacrolimus (Tacrolimus 0.5 Mg Capsule) 0.5 mg PO BID [facility] Last Admin: 04/02/22 08:38 Dose: 0.5 mg Documented By: MARY Ursodiol (Ursodiol 300 Mg Capsule) 600 mg PO BID [facility] Last Admin: 04/02/22 08:38 Dose: 600 mg Documented By: MARY Labs CBC & Chem 7: 04/02/22 06:03 04/02/22 06:03 Labs: Laboratory Results - last 24 hr 04/02/22 04/02/22 04/02/22 06:03 06:03 06:03 MCV 91.6 MCH 29.7 MCHC 32.4 RDW 16.9 H Plt Count 109 L MPV 10.3 Immature Gran % (Auto) 0.9 H Neut % (Auto) 66.2 Lymph % (Auto) 17.8 L [place] % (Auto) 12.8 H Eos % (Auto) 1.7 Baso % (Auto) 0.6 Lymph # (Auto) 1.1 L [place] # (Auto) 0.8 Eos # (Auto) 0.1 Baso # (Auto) 0.0 Abs Immat Gran (auto) 0.06 H Absolute Neuts (auto) 4.2 Absolute Nucleated RBC 0.000 Nucleated RBC % (auto) 0.0 PT 13.7 H INR 1.2 H Anion Gap 10 L Estim Creat Clear Calc 63.7 Estimated GFR > 60 Fasting Glucose 98 Calcium 8.4 Total Bilirubin 2.1 H AST 37 H ALT 40 H Alkaline Phosphatase 199 H C-Reactive Protein 4.47 H Total Protein 5.4 L Albumin 2.8 L Procalcitonin 04/02/22 06:03 MCV MCH MCHC RDW Plt Count MPV Immature Gran % (Auto) Neut % (Auto) Lymph % (Auto) [place] % (Auto) Eos % (Auto) Baso % (Auto) Lymph # (Auto) [place] # (Auto) Eos # (Auto) Baso # (Auto) Abs Immat Gran (auto) Absolute Neuts (auto) Absolute Nucleated RBC Nucleated RBC % (auto) PT INR Anion Gap Estim Creat Clear Calc Estimated GFR Fasting Glucose Calcium Total Bilirubin AST ALT Alkaline Phosphatase C-Reactive Protein Total Protein Albumin Procalcitonin 0.12 Microbiology Microbiology Results: Microbiology 03/31/22 11:20 Gram Stain - Final Ascites Fluid Anaerobic Culture - Preliminary No growth to date. Body Fluid Culture - Final No growth after 2 days 03/31/22 11:30 Gram Stain - Final Thoracentesis Fluid Anaerobic Culture - Preliminary No growth to date. Body Fluid Culture - Final No growth after 2 days 03/30/22 14:27 Blood Culture - Preliminary Blood - Venous No growth after 48 hours. 03/30/22 12:25 Blood Culture - Preliminary Blood - Venous No growth after 48 hours. Assessment and Plan (1) Primary biliary cholangitis: Status: Acute (2) Ascites: Status: Acute Plan hospital d#4 66yo F with PBC s/p liver transplant, on tacrolimus, with recurrence of PBC, HTN, anxiety, hx breast CA s/p lumpectomy presented with dyspnea found to have pleural effusion and large-volume ascites [facility] contacted, no indication for transfer # [facility] - s/p paracentesis with removal 3L ascites on 03/31. ascites PMNs elevated though improved from previous. ceftriaxone d#4. eventual transition to cefuroxime upon discharge. Cultures negative. continue furosemide # pleural effusion - s/p thoracetensis with removal 400 mL pleural fluid on 03/31. per GI more likely parapneumonic effusion. antibiotics as below. cultures negative thus far. # pneumonia - ceftriaxone + doxycycline d#4 # SBP - continue colesevelam, ursodiol # enteritis - on budesonide per GI # liver transplant - continue tacrolimus # mood disorder - escitalopram # VTE ppx: SCDs # dispo: anticipate home in next 1-2d In my clinical judgment, the patient requires continued inpatient hospitalization for the following reasons: IV ABX Time Spent With Patient Time: Total time managing care of this patient today _30___ minutes. Quality Stroke Does the patient have a stroke diagnosis?: No VTE Prior VTE?: No VTE Risk Level:: Medical - moderate - high VTE Device Contraindication: N/A - Device Ordered VTE Drug Contraindication: Treatment Not Indicated
--- NOTE | 2022-04-02 16:37 | PC.NURSE ---
pt reports 10/10 radiating pain up her left arm. site is tender to touch, some redness. tylenol was given with no relief - notified at 12:44. US to r/o DVT ordered. will continue to monitor.
[2022-04-02] MEDS: cefTRIAXone sodium 1 GM in 0.9 % Sodium Chloride 50 ML IV (17:38)
[2022-04-02] MEDS: guaiFENesin 100 MG/5 ML LIQUID PO (17:41)
[2022-04-02] MEDS: Gabapentin 300 MG CAPSULE 600 MG PO (20:28)
[2022-04-03 03:31] VITALS: BP 122/77; PULSE 91; RESP 15; TEMP 36.6; O2SAT 95
[2022-04-03] MEDS: Omeprazole 20 MG CAPSULE.DR PO (06:04)
[2022-04-03 07:45] VITALS: BP 133/86; PULSE 100; RESP 20; TEMP 36.8; O2SAT 93
[2022-04-03] MEDS: 0.9 % Sodium Chloride Flush 3 ML SYRINGE IVFLUSH (09:18)
[2022-04-03] MEDS: Escitalopram Oxalate 20 MG TABLET PO (09:18)
[2022-04-03] MEDS: UrsodioL 300 MG CAPSULE 600 MG PO (09:18)
[2022-04-03] MEDS: Furosemide 20 MG TABLET PO (09:18)
[2022-04-03] MEDS: Tacrolimus 0.5 MG CAPSULE PO (09:19)
[2022-04-03] MEDS: Doxycycline Hyclate 100 MG in 0.9 % Sodium Chloride 250 ML 166.67 MG IV (09:20)
[2022-04-03] MEDS: guaiFENesin 100 MG/5 ML LIQUID PO (09:28)
--- NOTE | 2022-04-03 10:41 | P.DS_ITS ---
DS: Providers Provider Date of Service: 04/03/22 Date of admission: 03/30/22 17:52 Date of discharge: 04/03/22 Primary care physician: Taylor Zapata MD DS: Diagnosis Discharge Diagnosis (1) Primary biliary cholangitis: Status: Acute (2) Ascites: Status: Acute (3) Pneumonia: Status: Acute (4) Pleural effusion: Status: Acute DS: Summary Hospital Course Hospital Course: from admission H+P by hospitalist Francisco Awad DO, 03/30/22: 66 year old assigned female at with a history of liver transplant in 2016, pleural effusion requiring drainage, ascites requiring drainage, and current cirrhosis of the liver presenting to the emergency department today with shortness of breath and possible fluid on the lung. Patient states that she was seen at urgent care for shortness of breath and was told her XR showed fluid around her lungs. Patient states that her liver transplant occurred in 2015 however, her new liver is already cirrhotic and she has ascites. Patient states that she is actively following with Dr. Desai at [facility] in [place], [place]. Patient denies any dizziness, lightheadedness, abdominal pain, nausea, vomiting, fever, chills, blurry vision, double vision, loss of vision, chest pain, back pain, night sweats, pain with urination, increased urinary frequency, increased urinary urgency, blood in [his/her/their] urine or stool, syncope or a near syncopal episode, recent trauma or falls, bowel incontinence, bladder incontinence, bowel retention, bladder retention, or any other complaints at this time. Patient had similar presentation 02/03/2022 for which was treated for SBP status post tap.? She states she felt better for short period of time but over the last week began to feel more short of breath with cough and increasing abdominal girth.? CT chest/abdomen pelvis demonstrated stable moderate right pleural effusion and large volume ascites.? She will be admitted for treatment workup of same This 66yo F with PBC s/p liver transplant on tacrolimus with recurrence of PBC, enteritis on budesonide, HTN, anxiety, and hx breast CA s/p lumpectomy presented with dyspnea and was found to have pleural effusion and large-volume ascites along with pneumonia. [facility] contacted but there was no indication for transfer and [place] [facility] [place] [facility] [place] She underwent paracentesis with removal of 3L of ascites on 03/31/22. Ascitic neutrophils were elevated to 401, though improved from prior level of 1825 on 02/07/22. She was treated with ceftriaxone. Culture was negative. As for the pleural effusion, she underwent thoracetensis with removal 400 mL pleural fluid on 03/31. This was also culture-negative and was likely a parapneumonic effusion.? She was treated with ceftriaxone plus doxycycline for 5 days. She was discharged home with 2 more days of doxycycline and 5 days of cefuroxime. She should follow-up with her primary care doctor and her motor vehicle compliance analyst within 1-2 weeks. Time Spent with Patient Time attestation: Total time managing care of this patient today __43_ minutes. Discharge coordination time: Greater than 30 minutes Quality: Safe Use of Opioids Does Pt have an Active Cancer Diagnosis on the Problem List?: No Quality: Stroke Does the patient have a stroke diagnosis?: No Physical Exam 2 Vital Signs: Vital Signs: Last Vital Signs Temp 98.3 F 04/03/22 07:45 Pulse 100 04/03/22 07:45 Resp 20 04/03/22 07:45 BP 133/86 04/03/22 07:45 Pulse Ox 93 04/03/22 07:45 O2 Del Method 04/03/22 07:45 BMI result Body Mass Index 26.2 Gen: in no acute distress HEENT: sclera anicteric, moist mucus membranes Neck: supple Lungs: scattered rhonchi Heart: regular rate and rhythm, no murmurs Abd: soft, non-tense ascites Ext: no edema Skin: warm/well-perfused, bruising at sites of venipuncture LLE Neuro: alert and oriented x3, no focal findings Psych: appropriate affect DS: Data Data Completed and Pending Completed studies during hospitalization [Text1]: Laboratory Results WBC 6.3 X10*3/uL (4.8-10.8) 04/02/22 06:03 RBC 4.18 X10*6/uL (4.20-5.50) L 04/02/22 06:03 Hgb 12.4 g/dl (12.0-16.0) 04/02/22 06:03 Hct 38.3 % (37.0-47.0) 04/02/22 06:03 MCV 91.6 fL (80.0-98.0) 04/02/22 06:03 MCH 29.7 pg (27.0-33.0) 04/02/22 06:03 MCHC 32.4 g/dl (31.0-35.0) 04/02/22 06:03 RDW 16.9 % (11.0-16.0) H 04/02/22 06:03 Plt Count 109 X10*3/uL (160-400) L 04/02/22 06:03 MPV 10.3 fL (9.4-12.3) 04/02/22 06:03 Immature Gran % (Auto) 0.9 % (0.0-0.4) H 04/02/22 06:03 Neut % (Auto) 66.2 % (45-73) 04/02/22 06:03 Lymph % (Auto) 17.8 % (20-40) L 04/02/22 06:03 [place] % (Auto) 12.8 % (2-11) H 04/02/22 06:03 Eos % (Auto) 1.7 % (0-4) 04/02/22 06:03 Baso % (Auto) 0.6 % (0-2) 04/02/22 06:03 Lymph # (Auto) 1.1 X10*3/uL (1.2-4.9) L 04/02/22 06:03 [place] # (Auto) 0.8 X10*3/uL (0.1-1.2) 04/02/22 06:03 Eos # (Auto) 0.1 X10*3/uL (0.0-0.4) 04/02/22 06:03 Baso # (Auto) 0.0 X10*3/uL (0.0-0.2) 04/02/22 06:03 Abs Immat Gran (auto) 0.06 X10*3/uL (0.00-0.03) H 04/02/22 06:03 Absolute Neuts (auto) 4.2 x10*3/uL (2.0-8.3) 04/02/22 06:03 Absolute Nucleated RBC 0.000 X10*3/uL (0.0-0.012) 04/02/22 06:03 Nucleated RBC % (auto) 0.0 /100WBC (0.0-0.2) 04/02/22 06:03 PT 13.7 SEC (10.0-13.1) H 04/02/22 06:03 INR 1.2 (0.9-1.1) H 04/02/22 06:03 Sodium 142 mmol/L (135-145) 04/02/22 06:03 Potassium 3.3 mmol/L (3.3-5.1) 04/02/22 06:03 Chloride 110 mmol/L (96-108) H 04/02/22 06:03 Carbon Dioxide 25 mmol/L (22-29) 04/02/22 06:03 Anion Gap 10 (12-20) L 04/02/22 06:03 BUN 17 mg/dL (9-16) H 04/02/22 06:03 Creatinine 0.67 mg/dL (0.5-1.4) 04/02/22 06:03 Estim Creat Clear Calc 63.7 04/02/22 06:03 Estimated GFR > 60 04/02/22 06:03 Random Glucose 111 mg/dL (60-115) 03/30/22 12:25 Fasting Glucose 98 mg/dL (60-99) 04/02/22 06:03 Lactic Acid 1.5 mmol/L (0.5-2.0) 03/30/22 12:25 Calcium 8.4 mg/dL (8.4-10.2) 04/02/22 06:03 Total Bilirubin 2.1 mg/dL (0.0-1.0) H 04/02/22 06:03 Direct Bilirubin 1.2 mg/dL (0.0-0.5) H 03/30/22 12:25 AST 37 U/L (5-31) H 04/02/22 06:03 ALT 40 U/L (0-31) H 04/02/22 06:03 Alkaline Phosphatase 199 U/L (39-117) H 04/02/22 06:03 Ammonia 44 umol/L (13-55) 03/30/22 18:22 C-Reactive Protein 4.47 mg/dL (< or = 0.50) H 04/02/22 06:03 Total Protein 5.4 g/dL (6.5-8.0) L 04/02/22 06:03 Albumin 2.8 g/dL (3.5-5.0) L 04/02/22 06:03 Procalcitonin 0.12 ng/mL 04/02/22 06:03 Peritoneal WBC 0.565 X10*3/uL 03/31/22 11:30 Peritoneal RBC < 0.002 X10*6/uL 03/31/22 11:30 Periton Neutrophils 71 % 03/31/22 11:30 Periton Lymphocytes 8 % 03/31/22 11:30 Peritoneal Monocytes 5 % 03/31/22 11:30 Peritoneal Eosinophils 0 % 03/31/22 11:30 Peritoneal Basophils 0 % 03/31/22 11:30 Peritoneal Other Cells 16 % 03/31/22 11:30 Peritoneal Tot Protein 2.1 GM/DL 03/31/22 11:30 Peritoneal Albumin 1.1 GM/DL 03/31/22 11:30 Peritoneal Glucose 116 MG/DL 03/31/22 11:30 Pleural WBC 0.202 X10*3/uL 03/31/22 11:20 Pleural RBC 0.002 X10*3/uL 03/31/22 11:20 Pleural Neutrophils 9 % 03/31/22 11:20 Pleural Lymphocytes 68 % 03/31/22 11:20 Pleural Monocytes 6 % 03/31/22 11:20 Pleural Eosinophils 0 % 03/31/22 11:20 Pleural Basophils 0 % 03/31/22 11:20 Pleural Other Cells 17 % 03/31/22 11:20 Pleural Total Protein 4.0 GM/DL 03/31/22 11:20 Influenza Type A (PCR) NEGATIVE (Negative) 03/30/22 12:25 Influenza Type B (PCR) NEGATIVE (Negative) 03/30/22 12:25 RSV RNA Qual (PCR) NEGATIVE (Negative) 03/30/22 12:25 SARS-CoV-2 RNA (RT-PCR) NEGATIVE (Negative) 03/30/22 12:25 Impressions Abdomen/Pelvis CT 03/30/22 15:20 IMPRESSION: Stable moderate right pleural effusion. Old granulomatous disease. Prominent azygos vein and chest wall varices. Splenomegaly. No evidence of bowel ileus or obstruction or obstructive uropathy. Large volume ascites. Chest CT 03/30/22 15:20 IMPRESSION: Stable moderate right pleural effusion. Old granulomatous disease. Prominent azygos vein and chest wall varices. Splenomegaly. No evidence of bowel ileus or obstruction or obstructive uropathy. Large volume ascites. Thoracentesis Ultrasound 03/31/22 11:30 IMPRESSION: Ultrasound-guided right thoracentesis and paracentesis. Paracentesis Ultrasound 03/31/22 12:00 IMPRESSION: Ultrasound-guided right thoracentesis and paracentesis. Chest X-Ray 03/31/22 14:09 IMPRESSION: No pneumothorax post right thoracentesis. Venous Duplex 04/02/22 16:30 IMPRESSION: No DVT demonstrated in the left arm Mildly prominent left cervical lymph node 1.9 x 1 cm. Pending studies at discharge: Pending at discharge 03/31/22 11:30 Cytology [PTH] Stat Labs on day of discharge: Preliminary micro results at discharge 03/31/22 11:20 Anaerobic Culture - Preliminary Ascites Fluid No growth to date. 03/31/22 11:30 Anaerobic Culture - Preliminary Thoracentesis Fluid No growth to date. 03/30/22 14:27 Blood Culture - Preliminary Blood - Venous No growth after 48 hours. 03/30/22 12:25 Blood Culture - Preliminary Blood - Venous No growth after 48 hours. Discharge Plan Discharge Anticipated Discharge Date/Time: 04/03/22 10:36 Patient Disposition: Home, Self-Care Discharge Diagnosis: Pneumonia with pleural effusion, culture-negative neurocytic ascites Referrals: Taylor Zapata MD [Primary Care Provider] - 1 Week Kathy Galloway MD [Physician] - 1 Week Discharge Medications: New doxycycline monohydrate 100 mg Capsule 100 mg PO BID Qty: 4 0RF cefuroxime axetil 500 mg tablet 500 mg PO BID Qty: 14 0RF guaifenesin 100 mg/5 mL Liquid 5 ml PO Q4H PRN (Reason: cough) Qty: 120 0RF Continued citalopram [Celexa] 40 mg tablet 40 mg PO DAILY Qty: 90 1RF budesonide 3 mg capsule,delayed,extend.release 9 mg PO DAILY Qty: 90 2RF furosemide 20 mg tablet 20 mg PO DAILY Qty: 90 1RF acetaminophen 325 mg Tablet 650 mg PO Q4H PRN (Reason: Pain (Scale Score 1-3)) tacrolimus 0.5 mg capsule 1 cap PO BID ursodiol 500 mg tablet 1 tab PO BID pantoprazole 40 mg tablet,delayed release (DR/EC) 40 mg PO DAILY@0630 colesevelam 625 mg tablet 2 tab PO BEDTIME colesevelam 625 mg tablet 2 tab PO DAILY gabapentin 300 mg capsule 600 mg PO BEDTIME Discharge Orders: Discharge Order (Routine); Ordered 04/03/22 Ordered By: Diandra Kam Diet: Low salt diet Activity on Discharge: As tolerated Stand Alone Forms: Patient Portal Discharge page Care Plan Goals: recovery from pneumonia liver health Health Concerns: Pneumonia with pleural effusion, culture-negative neurocytic ascites Plan of Treatment: For ascites, take cefuroxime 500 mg twice daily for 7 days. Continue furosemide . Limit sodium to maximum 2000 mg/d. For pneumonia, take doxycycline 100 mg twice daily for 2 days and cefuroxime as above. Please follow up with your primary care doctor within 1 week. Return to the hospital if you experience recurrent or worsening symptoms. Please also follow up with Dr Galloway from Gastroenterology within 1-2 weeks. Assessment: See Discharge Summary.
--- NOTE | 2022-04-03 10:54 | MHC.CM.PN ---
DP: PT MEDICALLY CLEARED FOR DC HOME, NO SERVICES. RN AWARE. IMM DELIVERED. [facility] WILL TRANSPORT HOME.
[2022-04-03 11:28] VITALS: BP 111/81; PULSE 113; RESP 20; TEMP 36.7; O2SAT 95
== END 2022-04-03 12:42 | disposition home or self-care (01) | DRG 432 ==
LOC: HO.ED 14:39 → HO.EDOVER 17:57 → HO.IMC 03-31 16:16
PROVIDERS: Nurse Practitioner Family; Physician Assistant Medical; Radiology Diagnostic Radiology; Admitting Provider Hospitalist; Emergency Provider Student in an Organized Health Care Education/Training Program; PCP Internal Medicine; Visit Provider Family Medicine
PROC: 0W993ZZ Drainage of Right Pleural Cavity, Percutaneous Approach (ICD-10-PCS; principal; 2022-03-31 11:30)
PROC: 0W993ZZ Drainage of Right Pleural Cavity, Percutaneous Approach (ICD-10-PCS; 2022-03-31 11:30)
DX: K74.3 Primary biliary cirrhosis (principal); J18.9 Pneumonia, unspecified organism; D84.821 Immunodeficiency due to drugs; R18.8 Other ascites; T86.42 Liver transplant failure; J91.8 Pleural effusion in other conditions classified elsewhere; K52.9 Noninfective gastroenteritis and colitis, unspecified; F41.9 Anxiety disorder, unspecified; K74.60 Unspecified cirrhosis of liver; Z20.822 Contact with and (suspected) exposure to COVID-19; Z88.2 Allergy status to sulfonamides; Z88.5 Allergy status to narcotic agent; Z79.621 Long term (current) use of calcineurin inhibitor; Z79.899 Other long term (current) drug therapy
CPT/HCPCS: 0241U; 32555; 36415; 49083; 71045; 71046; 71250; 74176; 80048; 80053; 80076; 82042; 82140; 82945; 83605; 84145; 84157; 85025; 85610; 86140; 87040; 87070; 87073; 87205; 88112; 88305; 89051; 93971; 96365; 99285; J0696

== ENCOUNTER 2022-04-13 09:50 | Outpatient (REF) | payer MEDICARE, OTHER, SELFPAY ==
--- NOTE | ~2022-04-13 | US_ITS ---
EXAMINATION: US COMPLETE ABDOMEN WITH LIVER ELASTOGRAPHY CLINICAL INFORMATION: Reassess liver and ascites. Status post liver transplant 6 years ago. COMPARISON: None. TECHNIQUE: Real-time imaging of the abdominal viscera. Noninvasive ultrasound liver fibrosis assessment is performed using Melinda ElastPQ point quantification shear wave elastography (2D-SWE) with a C5-2 MHz transducer. Multiple elastography samples are obtained. FINDINGS: PANCREAS: The visualized pancreatic head and body are normal in appearance. The remainder of the pancreas is obscured from visualization by the overlying bowel gas. ABDOMINAL AORTA: The proximal and mid aortic segments are normal in caliber. The distal segment is not seen. INFERIOR VENA CAVA: Visualized portions are normal. LIVER: The liver demonstrates normal size, contour and mild increased echogenicity. No focal lesion or intrahepatic biliary duct dilatation. There is moderate ascites. The right lobe measures 14.1 cm in length. The left lobe measures 11.6 cm in length. Portal flow is hepatopedal. Shear wave liver elastography median stiffness is 1.85 m/s (reference: normal median stiffness is 1.3 m/s or less). IQR/median stiffness to assess sampling precision is 0.18 (reference: good quality data set is IQR/median stiffness of 0.15 or less). GALLBLADDER: The gallbladder has been surgically removed. COMMON BILE DUCT: Normal in caliber measuring 0.8 cm in diameter. RIGHT KIDNEY: Normal. No hydronephrosis. No renal calculi or focal parenchymal lesions. The kidney measures 8.9 cm in maximum dimension. LEFT KIDNEY: Normal. No hydronephrosis. No renal calculi or focal parenchymal lesions. The kidney measures 10.2 cm in maximum dimension. SPLEEN: Normal. The spleen measures 17.5 cm in maximum dimension. FREE FLUID: None. US/US abdomen comp w elastography IMPRESSION: 1. Mildly echogenic liver otherwise unremarkable. The gallbladder has been surgically removed. There is moderate ascites. 2. Liver elastography: Median liver stiffness measures 1.85 m/s corresponds to cACLD (suggestive). REFERENCE: Society of Radiologists in Ultrasound Liver Stiffness Thresholds (2019): LIVER STIFFNESS THRESHOLDS: *Liver Stiffness equal or less than 1.3 m/s: High probability of being normal. *Liver Stiffness less than 1.7 m/s: In the absence of other known clinical signs, rules out compensated advanced chronic liver disease. *Liver Stiffness 1.7-2.1 m/s: Suggestive of compensated advanced chronic liver disease but need further test for confirmation. *Liver Stiffness over 2.1 m/s: Rules in compensated advanced chronic liver disease. *Liver Stiffness over 2.4 m/s: Suggestive of clinically significant portal hypertension. QUALITY OF DATA SET: *IQR/Median value equal or less than 0.15 implies a quality data set. *IQR/Median value over 0.15 implies a poor quality data set. SIGNIFICANT CHANGE FROM PRIOR EXAM: Significant change if liver stiffness measurement is 10% or greater from prior exam. OTHER CONSIDERATIONS: The stage of liver fibrosis may be overestimated in the setting of acute hepatitis, liver inflammation, elevated liver function tests, hepatic vascular congestion, obstructive cholestasis, non-fasting state, and infiltrative diseases such as amyloidosis and lymphoma. In some patients with NAFLD, the liver stiffness thresholds for compensated advanced chronic liver disease may be lower. In causes other than viral hepatitis and NAFLD, liver stiffness thresholds are not well established.
== END 2022-04-13 09:51 | disposition home or self-care (01) ==
LOC: HO.US 09:50
PROVIDERS: PCP Internal Medicine; Visit Provider Internal Medicine Gastroenterology
DX: R18.8 Other ascites (principal)
CPT/HCPCS: 76705; 76981

== ENCOUNTER 2022-04-14 08:51 | Outpatient (REF) | payer MEDICARE, OTHER, SELFPAY ==
--- NOTE | ~2022-04-14 | XR_ITS ---
EXAMINATION: XR CHEST CLINICAL INFORMATION: Pleural effusion. COMPARISON: Portable chest dated 03/31/2022. TECHNIQUE: 2 views of the chest were obtained. FINDINGS: There is a small right pleural effusion. The right upper lung field and left lung are clear. The heart and mediastinal structures are unremarkable. XR/XR chest 2V IMPRESSION: Small right pleural effusion.
[2022-04-14 10:19] LABS: MANUAL DIFF FLAG NO
[2022-04-14 10:37] LABS: Basophils Percent Auto 0.3 % (0-2); Eosinophils Absolute Auto 0.1 X10*3/uL (0.0-0.4); Hematocrit 39.2 % (37.0-47.0); Hemoglobin 12.2 g/dl (12.0-16.0); Imm Gran Abs Auto 0.03 X10*3/uL (0.00-0.03); Imm Gran Pct Auto 0.5 % (0.0-0.4); Lymphocytes Absolute Auto 0.6 X10*3/uL (1.2-4.9); Lymphocytes Percent Auto 11.1 % (20-40); Mean Corpuscular HGB Conc 31.1 g/dl (31.0-35.0); Mean Corpuscular Hemoglobin 29.8 pg (27.0-33.0); Mean Corpuscular Volume 95.6 fL (80.0-98.0); Mean Platelet Volume 9.7 fL (9.4-12.3); Monocytes Absolute Auto 0.5 X10*3/uL (0.1-1.2); Monocytes Percent Auto 8.5 % (2-11); Neutrophils Absolute Auto 4.6 x10*3/uL (2.0-8.3); Neutrophils Percent Auto 78.6 % (45-73); Platelet Count 115 X10*3/uL (160-400); White Blood Count 5.8 X10*3/uL (4.8-10.8)
[2022-04-14 10:59] LABS: Appearance Urine Cloudy; Color Urine Dark Yellow; Glucose Urine UA Negative (Negative); Leukocyte Esterase Urine Small (1+) (Negative); Nitrite Urine Negative (Negative); Specific Gravity - Urine 1.025 (1.005-1.025); UMIC TRIGGER UACC YES; Urine Blood Negative (Negative); Urine Ketones Negative (Negative); Urine Protein 30 (1+) mg/dL (Neg-Trace)
[2022-04-14 11:19] LABS: Bacteria Urine None Seen (None Seen); Calcium Oxalate Crystals Urine Present; Hyaline Casts Urine 0-2 /LPF (0-2); UACC Culture Trigger YES; WBC Urine 0-5 /HPF (0-5)
[2022-04-14 11:59] LABS: Alanine Aminotransferase 42 U/L (0-31); Albumin Level 3.2 g/dL (3.5-5.0); Alkaline Phosphatase 205 U/L (39-117); Anion Gap 14 (12-20); Aspartate Amino Transferase 44 U/L (5-31); Bilirubin Total 1.9 mg/dL (0.0-1.0); Blood Urea Nitrogen 10 mg/dL (9-16); C Reactive Protein 2.45 mg/dL (< or = 0.50); Calcium 8.6 mg/dL (8.4-10.2); Carbon Dioxide 21 mmol/L (22-29); Chloride 111 mmol/L (96-108); Estimated Glomerular Filt Rate > 60; Glucose Random 99 mg/dL (60-115); Potassium 3.7 mmol/L (3.3-5.1); Sodium 142 mmol/L (135-145); Total Protein 6.3 g/dL (6.5-8.0)
[2022-04-14 12:09] LABS: Ferritin 158 ng/mL (10-250); Vitamin D 25-OH Total 28.7 ng/mL (>30)
[2022-04-14 12:23] LABS: Folate 5.7 ng/mL (> or = 4.0); Vitamin B12 242 pg/mL (200-900)
[2022-04-18 15:18] LABS: Zinc 49 mcg/dL (60-130)
[2022-04-18 20:52] LABS: Vitamin C 0.3 mg/dL (0.3-2.7)
[2022-04-19 18:33] LABS: Alpha-Tocopherol 8.6 mg/L (5.7-19.9)
[2022-04-19 20:33] LABS: Nicotinamide <20 ng/mL; Vit B3 - Nicotinic Acid <20 ng/mL; Vitamin B5 (Pantothenic Acid) 54 ng/mL (<275)
[2022-04-19 23:08] LABS: Vitamin K1 271 pg/mL (130-1500)
[2022-04-20 08:48] LABS: Vitamin A 21 mcg/dL (38-98)
[2022-04-20 11:39] LABS: Vitamin B6 <2.0 ng/mL (2.1-21.7)
[2022-04-21 12:59] LABS: Vitamin B1 8 nmol/L (8-30)
== END 2022-04-14 08:52 | disposition home or self-care (01) ==
LOC: HO.LAB 08:51
PROVIDERS: PCP Internal Medicine; Visit Provider Internal Medicine Gastroenterology
DX: K75.81 Nonalcoholic steatohepatitis (NASH) (principal); R14.0 Abdominal distension (gaseous); R19.7 Diarrhea, unspecified; R18.8 Other ascites; J90 Pleural effusion, not elsewhere classified; R30.0 Dysuria; I10 Essential (primary) hypertension; Z85.3 Personal history of malignant neoplasm of breast; Z94.4 Liver transplant status
CPT/HCPCS: 36415; 71046; 80053; 81001; 81003; 82180; 82306; 82607; 82728; 82746; 84207; 84425; 84446; 84590; 84591; 84597; 84630; 85025; 86140; 87086; 99212

== ENCOUNTER 2022-04-17 13:51 | Outpatient (REF) | payer MEDICARE, OTHER, SELFPAY ==
[2022-04-17 14:53] LABS: CDiff Gene PCR NEGATIVE (Negative)
[2022-04-17 16:08] LABS: Adenovirus F 40/41 Not Detected (Not Detect.); Astrovirus Not Detected (Not Detect.); Campylobacter Not Detected (Not Detect.); Cryptosporidium Not Detected (Not Detect.); Cyclospora cayetanensis Not Detected (Not Detect.); E. coli EAEC Not Detected (Not Detect.); E. coli EPEC Not Detected (Not Detect.); E. coli ETEC Not Detected (Not Detect.); E. coli STEC Not Detected (Not Detect.); Entamoeba histolytica Not Detected (Not Detect.); Giardia lamblia Not Detected (Not Detect.); Norovirus GI/GII Not Detected (Not Detect.); Plesiomonas shigelloides Not Detected (Not Detect.); Rotavirus A Not Detected (Not Detect.); Salmonella Not Detected (Not Detect.); Sapovirus Not Detected (Not Detect.); Shigella sp./EIEC Not Detected (Not Detect.); Vibrio Not Detected (Not Detect.); Vibrio Cholerae Not Detected (Not Detect.); Yersinia enterocolitica Not Detected (Not Detect.)
== END 2022-04-17 13:52 | disposition home or self-care (01) ==
LOC: HO.LNP 13:51
PROVIDERS: Visit Provider Internal Medicine Gastroenterology
DX: J90 Pleural effusion, not elsewhere classified (principal); R18.8 Other ascites; R19.7 Diarrhea, unspecified; K76.9 Liver disease, unspecified
CPT/HCPCS: 83631; 87493; 87507

== ENCOUNTER → 2022-04-25 14:56 | Outpatient (BNV) | payer MEDICARE, OTHER, SELFPAY | PROVIDERS: Visit Provider Internal Medicine | DX: D69.6 Thrombocytopenia, unspecified (principal) | CPT/HCPCS: 99204; 99215; G2211 ==

== ENCOUNTER 2022-04-28 06:52 | Day surgery (SDC) | payer MEDICARE, OTHER, SELFPAY ==
--- NOTE | ~2022-04-28 | US_ITS ---
PROCEDURE: ULTRASOUND-GUIDED PARACENTESIS CLINICAL INFORMATION: Ascites. COMPARISON: None TECHNIQUE: Following explaining ultrasound-guided paracentesis procedure, benefits and risk, a written consent was obtained. Patient was placed supine on ultrasound stretcher and preliminary ultrasound imaging was obtained. An optimal site was selected and marked with a marker in left lower quadrant. The marked area was cleaned and draped in the usual sterile manner. 1% lidocaine was injected at puncture site. Through a small skin incision a 5 German Goomeoeh catheter was advanced into the peritoneal space. After observing fluid return the stylet was withdrawn and catheter connected to vacuum bottle via connecting cannula. After obtaining all fluid and observing no more fluid return, catheter was withdrawn and complete hemostasis achieved at puncture site. Simple Band-Aid applied postprocedure. Patient tolerated procedure extremely well. FINDINGS: On preliminary ultrasound imaging there is moderate fluid seen in the abdomen. Approximately 3.4 L of cloudy yellowish fluid was drained from the left lower quadrant. Part of this fluid was sent to lab for further investigation. US/US paracentesis abd w/image IMPRESSION: Successful diagnostic and therapeutic paracentesis performed.
[2022-04-28 07:10] VITALS: BMI 26.2
[2022-04-28 07:29] LABS: MANUAL DIFF FLAG NO
[2022-04-28 07:31] LABS: Basophils Percent Auto 0.3 % (0-2); Eosinophils Absolute Auto 0.1 X10*3/uL (0.0-0.4); Eosinophils Percent Auto 1.2 % (0-4); Hematocrit 36.6 % (37.0-47.0); Hemoglobin 11.8 g/dl (12.0-16.0); Imm Gran Abs Auto 0.02 X10*3/uL (0.00-0.03); Imm Gran Pct Auto 0.3 % (0.0-0.4); Lymphocytes Absolute Auto 0.8 X10*3/uL (1.2-4.9); Lymphocytes Percent Auto 11.4 % (20-40); Mean Corpuscular HGB Conc 32.2 g/dl (31.0-35.0); Mean Corpuscular Hemoglobin 29.9 pg (27.0-33.0); Mean Corpuscular Volume 92.9 fL (80.0-98.0); Mean Platelet Volume 9.4 fL (9.4-12.3); Monocytes Absolute Auto 0.6 X10*3/uL (0.1-1.2); Monocytes Percent Auto 9.3 % (2-11); Neutrophils Absolute Auto 5.3 x10*3/uL (2.0-8.3); Neutrophils Percent Auto 77.5 % (45-73); Platelet Count 127 X10*3/uL (160-400); Red Blood Count 3.94 X10*6/uL (4.20-5.50); Red Cell Distribution Width 15.3 % (11.0-16.0); White Blood Count 6.9 X10*3/uL (4.8-10.8)
[2022-04-28 07:37] LABS: INTERNATIONAL NORM RATIO 1.2 (0.9-1.1); Prothrombin Time 13.9 SEC (10.0-13.1)
[2022-04-28 07:39] LABS: Partial Thromboplastin Time 34.2 SEC (26.0-36.4)
[2022-04-28 07:53] LABS: Anion Gap 13 (12-20); Blood Urea Nitrogen 12 mg/dL (9-16); Carbon Dioxide 25 mmol/L (22-29); Chloride 108 mmol/L (96-108); Creatinine Clr Calc Pharmacy 58.4; Estimated Glomerular Filt Rate > 60; Potassium 3.3 mmol/L (3.3-5.1); Sodium 143 mmol/L (135-145)
[2022-04-28 09:30] VITALS: BP 134/81; PULSE 86; RESP 20; TEMP 36.6; O2SAT 97
[2022-04-28] MEDS: Lidocaine HCl 1 % MPF 30 ML VIAL SUBCUT (09:35)
[2022-04-28 09:45] VITALS: BP 136/81; PULSE 94; RESP 20; O2SAT 97
[2022-04-28 10:00] VITALS: BP 144/85; PULSE 94; RESP 16; O2SAT 97
[2022-04-28 10:07] LABS: MN% 71.7 %; PMN% 28.3 %; WBC Peritoneal Fluid 0.672 X10*3/uL
[2022-04-28 10:13] LABS: RBC Peritoneal Fluid < 0.002 X10*6/uL
[2022-04-28 10:15] VITALS: BP 139/89; PULSE 90; RESP 16; O2SAT 97
[2022-04-28 10:29] VITALS: BP 132/76; PULSE 91; RESP 16; O2SAT 97
[2022-04-28 10:47] VITALS: BP 134/78; PULSE 92; RESP 16; TEMP 37.2; O2SAT 97
[2022-04-28 10:57] LABS: BF Shift QC OK YES; Lymphocyte Peritoneal Fl 17 %; Man Diluent Bkgrd OK YES; Monocytes Peritoneal Fl 1 %; Neutrophils Peritoneal Fluid 22 %; Other Peritioneal Fl 60 %
[2022-04-29 04:06] LABS: pH Pleural Fluid 7.43
[2022-04-29 04:54] LABS: Albumin Peritoneal Fluid 1.2 GM/DL; Total Protein Peritoneal Fluid 2.1 GM/DL
== END 2022-04-28 11:00 | disposition home or self-care (01) ==
PROVIDERS: Internal Medicine Gastroenterology; PCP Internal Medicine; Visit Provider Radiology Diagnostic Radiology
DX: R18.8 Other ascites (principal); K76.9 Liver disease, unspecified; K74.3 Primary biliary cirrhosis; Z94.4 Liver transplant status; I10 Essential (primary) hypertension
CPT/HCPCS: 36415; 49083; 80051; 82042; 82565; 83986; 84157; 84520; 85025; 85610; 85730; 88112; 88305; 89051

== ENCOUNTER 2022-05-02 11:00 | Outpatient (RCR) | payer MEDICARE, OTHER, SELFPAY ==
--- NOTE | 2022-03-13 13:28 | MHC.PT.EP ---
[facility] [place] Office [place] Office [place] Office [address] [phone] F: [phone] F: [phone] F: [phone] F: [phone] Physical Therapy Plan of Care Date of Evaluation: Date of Surgery: Diagnosis: cervicalgia Assessment: Patient is a 66 year old R handed female who presents with s/s consistent with cervicalgia, neck pain. She does not currently work and does have multiple medical issues she is working through right now. Patient past medical history includes liver transplant, breast cancer, ascites. Current impairments include pain, posture, ROM, strength, activity tolerance and functional mobility. Functional limitations include decreased ability to sleep, lift, carry, and turn head, read. Patient is motivated with good rehab potential. Skilled PT will address impairments and functional limitations in order to achieve goals. Frequency and Duration: The patient will be seen 2x/week for 5 weeks Short Term Goals: I with HEP - 2 weeks Able to sleep with improved quality and duration - 3 weeks AROM rotation to 40 b/l - 3 weeks Flex/ext 20 or better - 3 weeks Voucher Examiner Goals: Rotation AROM 55 - 5 weeks NPDI 20% or better - 5 weeks Able to sleep undisturbed by neck pain - 5 weeks Treatment Plan: Modalities to reduce pain, spasms and effusion. Manual therapy to restore motion and function. Therapeutic exercise to improve strength and flexibility. Neuromuscular re-education for posture and balance. Therapeutic activities to return to functional activities of daily living. Electronically signed by: Serge Nelson, PT Please sign and return to therapist. Thank you for your referral.
--- NOTE | 2022-06-09 08:36 | MHC.PT.DC ---
[facility] [place] Office [place] Office [place] Office [address] Sugey Pryor [address] [phone] F: [phone] F: [phone] F: [phone] F: [phone] Physical Therapy Discharge Report Diagnosis: cervicalgia Date of Surgery: Date of Evaluation: 03/13/22 Date of Discharge: 05/10/22 Treatments to Date: 10 Cancellations to Date: No Shows to Date: Discharge Status: Improved Function Independent with HEP Discharge Summary: 05/02/22: NPDI 12%. Pt has met all goals and appropriate for d/c to HEP at this time. 04/27/22: pt has been happy with progress and I with HEP. This was updated and issued today. Sleeping better. C-spine AROM rotation is improved. She is compliant with HEP and appropriate to d/c to HEP [place]. 04/25/22: pt is responding well to current program. we will consider appropriate time to taper to HEP over the next week. 04/20/22: pt progressing well symptomatically. improved postural awareness. reduced tissue tension . 04/18 Pt had relief after manual RX. Pt had reduced c/s mobility. 04/11/22: pt has been feeling better since getting out of hospital but overall little improvement due to other health contributions and inability to perform HEP. 03/21/22: good carryover. progressed HEP. no adverse reactions. reduced tissue tension. Pt responding well to skilled PT for reduced tissue tension, pain and improved posture. continue to progress as tolerated. Patient is a 66 year old R handed female who presents with s/s consistent with cervicalgia, neck pain. She does not currently work and does have multiple medical issues she is working through right now. Patient past medical history includes liver transplant, breast cancer, ascites. Current impairments include pain, posture, ROM, strength, activity tolerance and functional mobility. Functional limitations include decreased ability to sleep, lift, carry, and turn head, read. Patient is motivated with good rehab potential. Skilled PT will address impairments and functional limitations in order to achieve goals. Electronically signed by: Serge Nelson, PT Please sign and return to therapist. Thank you for your referral.
== END 2022-06-09 08:36 | disposition home or self-care (01) ==
LOC: HO.PTCHIC 11:00
PROVIDERS: PCP Internal Medicine; Visit Provider Internal Medicine
DX: M54.2 Cervicalgia (principal)
CPT/HCPCS: 97110; 97140; 97163

== ENCOUNTER → 2022-05-12 08:35 | Outpatient (BNVA) | payer MEDICARE, OTHER, SELFPAY | PROVIDERS: PCP Internal Medicine; Referring Provider Internal Medicine; Visit Provider Internal Medicine Gastroenterology | DX: K74.3 Primary biliary cirrhosis (principal); R19.7 Diarrhea, unspecified; K76.9 Liver disease, unspecified; K75.81 Nonalcoholic steatohepatitis (NASH); Z94.4 Liver transplant status; Z79.60 Long term (current) use of unspecified immunomodulators and immunosuppressants | CPT/HCPCS: 99212 ==

== ENCOUNTER 2022-05-19 11:11 | Outpatient (REF) | payer MEDICARE, OTHER, SELFPAY ==
[2022-05-19 11:54] LABS: MANUAL DIFF FLAG NO
[2022-05-19 12:29] LABS: Basophils Percent Auto 0.4 % (0-2); Eosinophils Absolute Auto 0.1 X10*3/uL (0.0-0.4); Eosinophils Percent Auto 1.7 % (0-4); Hematocrit 36.6 % (37.0-47.0); Hemoglobin 11.7 g/dl (12.0-16.0); Imm Gran Abs Auto 0.02 X10*3/uL (0.00-0.03); Imm Gran Pct Auto 0.4 % (0.0-0.4); Lymphocytes Absolute Auto 0.9 X10*3/uL (1.2-4.9); Lymphocytes Percent Auto 20.3 % (20-40); Mean Corpuscular Hemoglobin 30.4 pg (27.0-33.0); Mean Corpuscular Volume 95.1 fL (80.0-98.0); Monocytes Absolute Auto 0.6 X10*3/uL (0.1-1.2); Monocytes Percent Auto 13.1 % (2-11); Neutrophils Percent Auto 64.1 % (45-73); Platelet Count 151 X10*3/uL (160-400); Red Blood Count 3.85 X10*6/uL (4.20-5.50); Red Cell Distribution Width 14.9 % (11.0-16.0); White Blood Count 4.6 X10*3/uL (4.8-10.8)
[2022-05-19 13:04] LABS: Alanine Aminotransferase 41 U/L (0-31); Albumin Level 3.1 g/dL (3.5-5.0); Alkaline Phosphatase 175 U/L (39-117); Anion Gap 13 (12-20); Aspartate Amino Transferase 44 U/L (5-31); Blood Urea Nitrogen 11 mg/dL (9-16); C Reactive Protein 3.61 mg/dL (< or = 0.50); Calcium 8.5 mg/dL (8.4-10.2); Carbon Dioxide 26 mmol/L (22-29); Chloride 107 mmol/L (96-108); Estimated Glomerular Filt Rate > 60; Glucose Random 93 mg/dL (60-115); Potassium 2.9 mmol/L (3.3-5.1); Sodium 143 mmol/L (135-145); Total Protein 6.1 g/dL (6.5-8.0)
[2022-05-19 13:13] LABS: Erythrocyte Sedimentation Rate 14 MM/HR (0-20)
[2022-05-19 13:13] LABS: Appearance Urine Clear; Color Urine Dark Yellow; Glucose Urine UA Negative (Negative); Leukocyte Esterase Urine Small (1+) (Negative); Nitrite Urine Negative (Negative); PH 6.5 (5.0-9.0); Specific Gravity - Urine 1.025 (1.005-1.025); UMIC TRIGGER UACC YES; Urine Blood Negative (Negative); Urine Ketones Trace mg/dL (Negative); Urine Protein 30 (1+) mg/dL (Neg-Trace)
[2022-05-19 13:21] LABS: Bacteria Urine None Seen (None Seen); Hyaline Casts Urine 0-2 /LPF (0-2); RBC Urine 0-2 /HPF (0-2); UACC Culture Trigger YES; WBC Urine 0-5 /HPF (0-5)
[2022-05-19 13:28] LABS: Ferritin 138 ng/mL (10-250)
[2022-05-23 23:59] LABS: Zinc 54 mcg/dL (60-130)
== END 2022-05-19 11:12 | disposition home or self-care (01) ==
LOC: HO.LAB 11:11
PROVIDERS: PCP Internal Medicine; Visit Provider Internal Medicine Gastroenterology
DX: R19.7 Diarrhea, unspecified (principal); K75.81 Nonalcoholic steatohepatitis (NASH); K74.3 Primary biliary cirrhosis; R30.0 Dysuria
CPT/HCPCS: 36415; 80053; 81001; 81003; 82728; 84630; 85025; 85652; 86140; 87086

== ENCOUNTER 2022-05-23 11:55 | Outpatient (REF) | payer MEDICARE, OTHER, SELFPAY ==
[2022-05-27 19:03] LABS: Lactoferrin, Fecal, Quant. 19.44 mcg/mL (<7.25)
== END 2022-05-23 11:56 | disposition home or self-care (01) ==
LOC: HO.LNP 11:55
PROVIDERS: Visit Provider Internal Medicine Gastroenterology
DX: R19.7 Diarrhea, unspecified (principal); K74.3 Primary biliary cirrhosis
CPT/HCPCS: 83631

== ENCOUNTER 2022-05-29 13:01 | Emergency (ER) | payer MEDICARE, OTHER, SELFPAY ==
[2022-05-29 13:13] VITALS: BP 143/101; PULSE 111; RESP 16; TEMP 36.7; O2SAT 97; BMI 26.2
--- NOTE | 2022-05-29 13:14 | ED.NAVMDI ---
HPI - Nausea/Vomiting/Diarrhea General Chief complaint: Nausea/Vomiting/Diarrhea <EMELIA Ott - Last Filed: 05/29/22 13:18> Stated complaint: diarrhea <EMELIA Ott - Last Filed: 05/29/22 13:18> Time Seen by Provider: 05/29/22 18:57 <EMELIA Ott - Last Filed: 05/29/22 13:18> Source: patient <Rosalino Montiel MD - Last Filed: 05/29/22 21:26> Mode of arrival: ambulatory <Rosalino Montiel MD - Last Filed: 05/29/22 21:26> Limitations: no limitations <Rosalino Montiel MD - Last Filed: 05/29/22 21:26> History of Present Illness HPI Narrative: 66-year-old female with a history of primary biliary sclerosis, ascites presents with nausea, vomiting and diarrhea. Symptoms started 1 week ago. Patient describes symptoms as moderate to severe. Any time she drinks or eats anything, she vomits. The vomitus is yellow in color but not bilious or green. She has had no fevers or chills. She has had some recent antibiotic use but her most recent C diff was negative. Patient has abdominal pain and discomfort secondary to distention. She usually has a paracentesis monthly and is due to have 1 tomorrow. She denies any blood in her vomitus or diarrhea. Otherwise are no clear relieving or exacerbating features. Patient describes her pain as pressure-like in nature. This is similar to when she needs a paracentesis. Patient was noted to have hypokalemia recently. Patient does have a history of a liver transplant but her symptoms and diagnosis have returned. <Rosalino Montiel MD - Last Filed: 05/29/22 21:26> MD elicited complaint: nausea, vomiting and diarrhea <Rosalino Montiel MD - Last Filed: 05/29/22 21:26> Pertinent past history: other (PVC) <Rosalino Montiel MD - Last Filed: 05/29/22 21:26> Onset (ago): day(s) (7) <Rosalino Montiel MD - Last Filed: 05/29/22 21:26> Description of vomiting: watery <Rosalino Montiel MD - Last Filed: 05/29/22 21:26> Description of diarrhea: watery <Rosalino Montiel MD - Last Filed: 05/29/22 21:26> Associated nausea: Yes <Rosalino Montiel MD - Last Filed: 05/29/22 21:26> Associated abdominal pain: Yes <Rosalino Montiel MD - Last Filed: 05/29/22 21:26> Location of pain: diffuse <Rosalino Montiel MD - Last Filed: 05/29/22 21:26> Pain consistency: constant <Rosalino Montiel MD - Last Filed: 05/29/22 21:26> Severity: moderate <Rosalino Montiel MD - Last Filed: 05/29/22 21:26> Quality: other (Pressure) <Rosalino Montiel MD - Last Filed: 05/29/22 21:26> Related Data Home medications: Home Medications Medication Instructions Recorded Confirmed tacrolimus 0.5 mg capsule, 1 cap PO BID 11/02/21 04/28/22 immediate-release ursodiol 500 mg tablet 1 tab PO BID 11/02/21 04/28/22 budesonide 3 mg 6 mg PO DAILY 04/17/22 04/28/22 capsule,delayed,extended release colesevelam 625 mg tablet 3,125 mg PO .COMPLEX 04/17/22 04/28/22 azithromycin 250 mg tablet 250 mg PO DAILY PRN Allergic 04/25/22 04/28/22 Symptoms cholecalciferol (vitamin D3) 25 25 mcg PO DAILY 04/25/22 04/28/22 mcg (1,000 unit) capsule (Vitamin D3) Previous Rx's Medication Instructions Recorded citalopram 40 mg tablet (Celexa) 40 mg PO DAILY #90 tabs 12/29/21 alprazolam 0.5 mg tablet (Xanax) 0.5 mg PO DAILY #4 tabs 04/17/22 furosemide 40 mg tablet 40 mg PO DAILY #30 tabs 04/17/22 gabapentin 300 mg capsule 600 mg PO BEDTIME #90 caps 04/17/22 guaifenesin 200 mg/5 mL oral liquid 400 mg (10 mL) PO Q6H PRN cough 04/17/22 #473 mL pyridoxine (vitamin B6) 100 mg 100 mg PO BID #180 tabs 04/20/22 tablet cyanocobalamin (vitamin B-12) 1,000 mcg PO DAILY #90 tabs 04/25/22 1,000 mcg tablet (Vitamin B-12) furosemide 20 mg tablet 20 mg PO DAILY #30 tabs 05/12/22 zinc acetate 50 mg (zinc) capsule 50 mg PO DAILY #90 caps 05/12/22 (Galzin) nitrofurantoin 100 mg PO Q12H 7 days #14 caps 05/19/22 monohydrate/macrocrystals 100 mg capsule (Macrobid) potassium chloride 20 mEq 20 meq PO DAILY #4 tabs 05/19/22 tablet,extended release ondansetron 4 mg disintegrating 4 mg PO Q8H PRN nausea and 05/29/22 tablet vomiting #10 tabs <EMELIA Ott - Last Filed: 05/29/22 13:18> Allergies/Adverse reactions: Allergies Allergy/AdvReac Type Severity Reaction Status Date / Time hydromorphone [From Dilaudid] Allergy Severe Hallucinati Verified 05/12/22 08:52 ons losartan Allergy Intermediate Facial Verified 05/12/22 08:52 Swelling Sulfa (Sulfonamide AdvReac Severe Rash Verified 05/12/22 08:52 Antibiotics) <EMELIA Ott - Last Filed: 05/29/22 13:18> Review of Systems Review of Systems: CONSTITUTIONAL: Denies weight loss, fever and chills. HEENT: Denies changes in vision and hearing. RESPIRATORY: Denies SOB and cough. CV: Denies palpitations no CP. GI: Positive abdominal pain, nausea, vomiting and diarrhea. : Denies dysuria and urinary frequency. MSK: Denies myalgia and joint pain. SKIN: Denies rash and pruritus. NEUROLOGICAL: Denies headache and syncope. PSYCHIATRIC: Denies recent changes in mood. Denies anxiety and depression. All other ROS are negative unless in HPI <Rosalino Montiel MD - Last Filed: 05/29/22 21:26> Gastrointestinal: Gastrointestinal: Reports nausea <Rosalino Montiel MD - Last Filed: 05/29/22 21:26> PMFSH Past Medical History Medical History: Medical History Anemia Anxiety Ascites Breast cancer CHF (congestive heart failure) Chronic diarrhea HTN (hypertension) Pancytopenia Primary biliary cholangitis Tremor <EMELIA Ott - Last Filed: 05/29/22 13:18> Surgical History: Surgical History H/O: hysterectomy Hx of colonoscopy Hx of esophagogastroduodenoscopy Liver transplant recipient S/P hip replacement Transplant recipient <EMELIA Ott - Last Filed: 05/29/22 13:18> Family History Family History: Family History Mother CAD (coronary artery disease) Sister Ovarian cancer Mental health disorder <EMELIA Ott - Last Filed: 05/29/22 13:18> Social History Social History: Social History Household Members: Spouse Household Members Other:: , children Housing: House Do you presently have visiting nurse or other home services: No Alcohol intake: never Patient Tobacco Use Status: Never used Tobacco Smoked in Last 30 Days: No e-Cigarette/Vaping Use: Never Used Use of substances other than those prescribed or required for medical reasons: No Advance Directives: No Advance Directives Information Provided: Yes service: No Current occupational status: retired Cognitive needs: No Hearing needs: No Vision needs: Yes <EMELIA Ott - Last Filed: 05/29/22 13:18> Physical Exam Vital Signs: Vital Signs: Last Vital Signs Temp 98.6 F 05/29/22 21:14 Pulse 101 H 05/29/22 21:14 Resp 16 05/29/22 21:14 BP 117/73 05/29/22 21:14 Pulse Ox 94 05/29/22 21:14 O2 Del Method 05/29/22 21:14 BMI result Body Mass Index 26.2 <EMELIA Ott - Last Filed: 05/29/22 13:18> Vital Signs: Last Vital Signs Temp 98.6 F 05/29/22 21:14 Pulse 101 H 05/29/22 21:14 Resp 16 05/29/22 21:14 BP 117/73 05/29/22 21:14 Pulse Ox 94 05/29/22 21:14 O2 Del Method 05/29/22 21:14 BMI result Body Mass Index 26.2 <Rosalino Montiel MD - Last Filed: 05/29/22 21:26> GEN: Well developed, no acute distress, alert, oriented HEENT: Normocephalic, atraumatic, normal external ears, nose appears normal, no oropharyngeal edema or exudates Eyes: Normal to appearance Neck: Supple, no lymphadenopathy Respiratory: Talks in complete sentences, no respiratory distress, clear to auscultation bilaterally Cardiovascular: Regular rate and rhythm, no murmurs rubs or gallops Abdomen: Distended, mild tenderness, no rebound or guarding ascites Back: No CVA tenderness Extremities: No clubbing cyanosis or edema Neurologic: No focal neurologic deficits, cranial nerves 2-12 intact, strength is 5/5 bilaterally, tremulous, no asterixi Skin: No rash scattered ecchymoses <Rosalino Montiel MD - Last Filed: 05/29/22 21:26> Course Course Course Narrative: RME - 66 yo female with 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 Reports diffuse upper abd pain, bilious vomitus and diarrhea. Plan: labs, stool studies, coags - ?paracentesis in the ER today if indicated <EMELIA Ott - Last Filed: 05/29/22 13:18> Reevaluation(s) Reevaluation #1: 66-year-old female with history PBC, ascites, presents with nausea, vomiting and diarrhea. Her examination revealed a distended abdomen without rebound or guarding. Doubt SBP. She has been on recent antibiotics which could be associated with C diff colitis. Apparently patient has had AC diff sample sent 1 week ago but the results are not available. April results were negative. She also reportedly had low potassium levels which are normalized today. Patient is due for paracentesis tomorrow. Patient's abdomen does not reveal tense ascites. I believe patient will benefit more from an outpatient procedure rather than an emergent procedure. Although I do suspect her symptoms are contributed by her ascites, I do not believe this warrants emergent paracentesis. Patient is comfortable with this process at this time. Will treat the patient with Zofran and re-evaluate the patient to tolerate liquids. If she is unable to tolerate liquids, patient can decide whether she would like to be discharged to follow up for an outpatient procedure tomorrow or whether she would like to remain inpatient and attempt the procedure in the morning by Interventional Radiology. <Rosalino Montiel MD - Last Filed: 05/29/22 21:26> Time: 19: <Rosalino Montiel MD - Last Filed: 05/29/22 21:26> Reevaluation #2: Patient is tolerating oral intake well. She wishes to be discharged at this time. She can follow-up tomorrow with her paracentesis. <Rosalino Montiel MD - Last Filed: 05/29/22 21:26> Time: 21:25 <Rosalino Montiel MD - Last Filed: 05/29/22 21:26> Medications Administered Discontinued Medications Generic Name Dose Route Start Last Admin Trade Name Freq PRN Reason Stop Dose Admin Ondansetron HCl 4 mg 05/29/22 19:18 05/29/22 20:04 Ondansetron Odt 4 Mg Tab.Rapdis TRANSLINGU 05/29/22 19:19 4 mg ONCE ONE Administration <EMELIA Ott - Last Filed: 05/29/22 13:18> Medications Administered Discontinued Medications Generic Name Dose Route Start Last Admin Trade Name Freq PRN Reason Stop Dose Admin Ondansetron HCl 4 mg 05/29/22 19:18 05/29/22 20:04 Ondansetron Odt 4 Mg Tab.Rapdis TRANSLINGU 05/29/22 19:19 4 mg ONCE ONE Administration <Rosalino Montiel MD - Last Filed: 05/29/22 21:26> Medical Decision Making Medical Decision Making MDM Narrative: 66-year-old female with history of PBC, ascites, presents with nausea, vomiting and diarrhea. Patient's exam revealed a nontender distended abdomen consistent with ascites. A full workup will be undertaken. Will try to treat patient symptomatically. <Rosalino Montiel MD - Last Filed: 05/29/22 21:26> Differential Diagnosis Differential Diagnoses: The differential diagnosis associated with the presentation includes (Ascites, C diff colitis, IBS, IBD, or gastroenteritis, bowel wall edema, bacterial overgrowth) <Rosalino Montiel MD - Last Filed: 05/29/22 21:26> Ascites, nausea/vomiting/diarrhea <Rosalino Montiel MD - Last Filed: 05/29/22 21:26> Admission/Observation Consideration of admission/observation: Escalation of care including admission/observation considered <Rosalino Montiel MD - Last Filed: 05/29/22 21:26> Lab Data MDM Lab Attestation statement: I reviewed the patient's lab results. <Rosalino Montiel MD - Last Filed: 05/29/22 21:26> Result Diagrams: 05/29/22 14:03 05/29/22 14:03 <EMELIA Ott - Last Filed: 05/29/22 13:18> Labs: Lab Results 05/29/22 05/29/22 05/29/22 Range/Units 14:03 14:03 14:03 WBC 7.0 (4.8-10.8) X10*3/uL RBC 4.25 (4.20-5.50) X10*6/uL Hgb 12.6 (12.0-16.0) g/dl Hct 39.3 (37.0-47.0) % MCV 92.5 (80.0-98.0) fL MCH 29.6 (27.0-33.0) pg MCHC 32.1 (31.0-35.0) g/dl RDW 14.6 (11.0-16.0) % Plt Count 144 L (160-400) X10*3/uL MPV 9.4 (9.4-12.3) fL Immature Gran % (Auto) 0.3 (0.0-0.4) % Neut % (Auto) 83.3 H (45-73) % Lymph % (Auto) 7.4 L (20-40) % [place] % (Auto) 7.8 (2-11) % Eos % (Auto) 0.9 (0-4) % Baso % (Auto) 0.3 (0-2) % Lymph # (Auto) 0.5 L (1.2-4.9) X10*3/uL [place] # (Auto) 0.6 (0.1-1.2) X10*3/uL Eos # (Auto) 0.1 (0.0-0.4) X10*3/uL Baso # (Auto) 0.0 (0.0-0.2) X10*3/uL Abs Immat Gran (auto) 0.02 (0.00-0.03) X10*3/uL Absolute Neuts (auto) 5.8 (2.0-8.3) x10*3/uL Absolute Nucleated RBC 0.000 (0.0-0.012) X10*3/uL Nucleated RBC % (auto) 0.0 (0.0-0.2) /100WBC PT 14.1 H (10.0-13.1) SEC INR 1.2 H (0.9-1.1) APTT 33.1 (26.0-36.4) SEC Sodium 140 (135-145) mmol/L Potassium 3.7 D (3.3-5.1) mmol/L Chloride 107 (96-108) mmol/L Carbon Dioxide 24 (22-29) mmol/L Anion Gap 13 (12-20) BUN 14 (9-16) mg/dL Creatinine 0.71 (0.5-1.4) mg/dL Estim Creat Clear Calc 60.0 Estimated GFR > 60 Random Glucose 111 (60-115) mg/dL Calcium 8.4 (8.4-10.2) mg/dL Magnesium 1.6 (1.6-2.6) mg/dL Total Bilirubin 3.5 H (0.0-1.0) mg/dL Direct Bilirubin 1.9 H (0.0-0.5) mg/dL AST 46 H (5-31) U/L ALT 39 H (0-31) U/L Alkaline Phosphatase 169 H (39-117) U/L Total Protein 6.1 L (6.5-8.0) g/dL Albumin 3.2 L (3.5-5.0) g/dL Lipase 29 (8-78) U/L <EMELIA Ott - Last Filed: 05/29/22 13:18> Lab Results 05/29/22 05/29/22 05/29/22 Range/Units 14:03 14:03 14:03 WBC 7.0 (4.8-10.8) X10*3/uL RBC 4.25 (4.20-5.50) X10*6/uL Hgb 12.6 (12.0-16.0) g/dl Hct 39.3 (37.0-47.0) % MCV 92.5 (80.0-98.0) fL MCH 29.6 (27.0-33.0) pg MCHC 32.1 (31.0-35.0) g/dl RDW 14.6 (11.0-16.0) % Plt Count 144 L (160-400) X10*3/uL MPV 9.4 (9.4-12.3) fL Immature Gran % (Auto) 0.3 (0.0-0.4) % Neut % (Auto) 83.3 H (45-73) % Lymph % (Auto) 7.4 L (20-40) % [place] % (Auto) 7.8 (2-11) % Eos % (Auto) 0.9 (0-4) % Baso % (Auto) 0.3 (0-2) % Lymph # (Auto) 0.5 L (1.2-4.9) X10*3/uL [place] # (Auto) 0.6 (0.1-1.2) X10*3/uL Eos # (Auto) 0.1 (0.0-0.4) X10*3/uL Baso # (Auto) 0.0 (0.0-0.2) X10*3/uL Abs Immat Gran (auto) 0.02 (0.00-0.03) X10*3/uL Absolute Neuts (auto) 5.8 (2.0-8.3) x10*3/uL Absolute Nucleated RBC 0.000 (0.0-0.012) X10*3/uL Nucleated RBC % (auto) 0.0 (0.0-0.2) /100WBC PT 14.1 H (10.0-13.1) SEC INR 1.2 H (0.9-1.1) APTT 33.1 (26.0-36.4) SEC Sodium 140 (135-145) mmol/L Potassium 3.7 D (3.3-5.1) mmol/L Chloride 107 (96-108) mmol/L Carbon Dioxide 24 (22-29) mmol/L Anion Gap 13 (12-20) BUN 14 (9-16) mg/dL Creatinine 0.71 (0.5-1.4) mg/dL Estim Creat Clear Calc 60.0 Estimated GFR > 60 Random Glucose 111 (60-115) mg/dL Calcium 8.4 (8.4-10.2) mg/dL Magnesium 1.6 (1.6-2.6) mg/dL Total Bilirubin 3.5 H (0.0-1.0) mg/dL Direct Bilirubin 1.9 H (0.0-0.5) mg/dL AST 46 H (5-31) U/L ALT 39 H (0-31) U/L Alkaline Phosphatase 169 H (39-117) U/L Total Protein 6.1 L (6.5-8.0) g/dL Albumin 3.2 L (3.5-5.0) g/dL Lipase 29 (8-78) U/L <Rosalino Montiel MD - Last Filed: 05/29/22 21:26> Independent Historian Clinical information obtained from an independent historian. History obtained from or confirmed by: Other (Daughter) <Rosalino Montiel MD - Last Filed: 05/29/22 21:26> External Record Review External record reviewed: Office record (Gastroenterology, Dr. Galloway, May 12, 2022) <Rosalino Montiel MD - Last Filed: 05/29/22 21:26> Tests considered The following testing was considered but not selected: Ultrasound <Rosalino Montiel MD - Last Filed: 05/29/22 21:26> Prescription Management I considered prescription management with: Other (Antiemetics) <Rosalino Montiel MD - Last Filed: 05/29/22 21:26> Chronic Conditions Patient?s care impacted by: Other (Chronic liver disease) <Rosalino Montiel MD - Last Filed: 05/29/22 21:26> Discharge Plan Discharge Clinical Impression: Nausea, vomiting and diarrhea, Ascites <EMELIA Ott - Last Filed: 05/29/22 13:18> Patient Disposition: Home, Self-Care <EMELIA Ott - Last Filed: 05/29/22 13:18> Instructions: Acute Nausea and Vomiting (ED), Acute Diarrhea (ED), Acute Abdominal Pain (ED), Ascites (ED) <EMELIA Ott - Last Filed: 05/29/22 13:18> Prescriptions: New ondansetron 4 mg tablet,disintegrating 4 mg PO Q8H PRN (Reason: nausea and vomiting) Qty: 10 0RF No Action citalopram [Celexa] 40 mg tablet 40 mg PO DAILY Qty: 90 1RF furosemide 40 mg tablet 40 mg PO DAILY Qty: 30 1RF alprazolam [Xanax] 0.5 mg tablet 0.5 mg PO DAILY Qty: 4 0RF pyridoxine (vitamin B6) 100 mg tablet 100 mg PO BID Qty: 180 0RF nitrofurantoin monohyd/m-cryst [Macrobid] 100 mg capsule 100 mg PO Q12H 7 Days Qty: 14 0RF Rx Instructions: must administer with a meal/food potassium chloride 20 mEq tablet extended release 20 meq PO DAILY Qty: 4 0RF azithromycin 250 mg tablet 250 mg PO DAILY PRN (Reason: Allergic Symptoms) cholecalciferol (vitamin D3) [Vitamin D3] 25 mcg (1,000 unit) Capsule 25 mcg PO DAILY cyanocobalamin (vitamin B-12) [Vitamin B-12] 1,000 mcg Tablet 1,000 mcg PO DAILY Qty: 90 3RF tacrolimus 0.5 mg capsule 1 cap PO BID ursodiol 500 mg tablet 1 tab PO BID budesonide 3 mg capsule,delayed,extend.release 6 mg PO DAILY colesevelam 625 mg tablet 3,125 mg PO .COMPLEX Rx Instructions: 2 tabs in the morning, 3 tabs at night gabapentin 300 mg capsule 600 mg PO BEDTIME Qty: 90 0RF guaifenesin 200 mg/5 mL liquid 400 mg PO Q6H PRN (Reason: cough) Qty: 473 2RF Galzin 50 mg (zinc) capsule 50 mg PO DAILY Qty: 90 0RF furosemide 20 mg tablet 20 mg PO DAILY Qty: 30 0RF Rx Instructions: Take at 12 pm <EMELIA Ott - Last Filed: 05/29/22 13:18> Referrals: Kathy Galloway MD [Physician] - 2 days <EMELIA Ott - Last Filed: 05/29/22 13:18>
[2022-05-29 14:07] LABS: MANUAL DIFF FLAG NO
[2022-05-29 14:10] LABS: Basophils Percent Auto 0.3 % (0-2); Eosinophils Absolute Auto 0.1 X10*3/uL (0.0-0.4); Eosinophils Percent Auto 0.9 % (0-4); Hematocrit 39.3 % (37.0-47.0); Hemoglobin 12.6 g/dl (12.0-16.0); Imm Gran Abs Auto 0.02 X10*3/uL (0.00-0.03); Imm Gran Pct Auto 0.3 % (0.0-0.4); Lymphocytes Absolute Auto 0.5 X10*3/uL (1.2-4.9); Lymphocytes Percent Auto 7.4 % (20-40); Mean Corpuscular HGB Conc 32.1 g/dl (31.0-35.0); Mean Corpuscular Hemoglobin 29.6 pg (27.0-33.0); Mean Corpuscular Volume 92.5 fL (80.0-98.0); Mean Platelet Volume 9.4 fL (9.4-12.3); Monocytes Absolute Auto 0.6 X10*3/uL (0.1-1.2); Monocytes Percent Auto 7.8 % (2-11); Neutrophils Absolute Auto 5.8 x10*3/uL (2.0-8.3); Neutrophils Percent Auto 83.3 % (45-73); Platelet Count 144 X10*3/uL (160-400); Red Blood Count 4.25 X10*6/uL (4.20-5.50); Red Cell Distribution Width 14.6 % (11.0-16.0)
[2022-05-29 14:14] LABS: INTERNATIONAL NORM RATIO 1.2 (0.9-1.1); Prothrombin Time 14.1 SEC (10.0-13.1)
[2022-05-29 14:16] LABS: Partial Thromboplastin Time 33.1 SEC (26.0-36.4)
[2022-05-29 14:29] LABS: Alanine Aminotransferase 39 U/L (0-31); Albumin Level 3.2 g/dL (3.5-5.0); Alkaline Phosphatase 169 U/L (39-117); Anion Gap 13 (12-20); Aspartate Amino Transferase 46 U/L (5-31); Bilirubin Direct 1.9 mg/dL (0.0-0.5); Bilirubin Total 3.5 mg/dL (0.0-1.0); Blood Urea Nitrogen 14 mg/dL (9-16); Calcium 8.4 mg/dL (8.4-10.2); Carbon Dioxide 24 mmol/L (22-29); Chloride 107 mmol/L (96-108); Estimated Glomerular Filt Rate > 60; Glucose Random 111 mg/dL (60-115); Lipase 29 U/L (8-78); Magnesium 1.6 mg/dL (1.6-2.6); Potassium 3.7 mmol/L (3.3-5.1); Sodium 140 mmol/L (135-145); Total Protein 6.1 g/dL (6.5-8.0)
[2022-05-29 19:51] VITALS: BP 130/76; PULSE 105; RESP 16; TEMP 37.2; O2SAT 95
[2022-05-29] MEDS: Ondansetron ODT 4 MG TAB.RAPDIS TRANSLINGU (20:04)
--- NOTE | 2022-05-29 20:07 | PC.NURSE ---
pt a&o, denies any sob or chest pain, pt oob to bathroom with a steady gait. Pt medicated per May. Pt report abd tenderness. Will continue to monitor.
[2022-05-29 21:14] VITALS: BP 117/73; PULSE 101; RESP 16; TEMP 37; O2SAT 94
[2022-05-29 21:33] LABS: Appearance Urine Clear; Color Urine Yellow; Glucose Urine UA Negative (Negative); Leukocyte Esterase Urine Negative (Negative); Nitrite Urine Positive (Negative); Specific Gravity - Urine 1.025 (1.005-1.025); UMIC TRIGGER UACC YES; Urine Blood Negative (Negative); Urine Ketones Negative (Negative); Urine Protein 30 (1+) mg/dL (Neg-Trace)
[2022-05-29 21:58] LABS: Bacteria Urine 2+ (None Seen); Hyaline Casts Urine 0-2 /LPF (0-2); RBC Urine 0-2 /HPF (0-2); Squamous Epithelial Cell Urine 0-2 /HPF (0-2); UACC Culture Trigger YES; WBC Urine 0-5 /HPF (0-5)
== END 2022-05-29 21:41 | disposition home or self-care (01) ==
PROVIDERS: Physician Assistant; Emergency Provider Emergency Medicine; PCP Internal Medicine
DX: R11.2 Nausea with vomiting, unspecified (principal); R19.7 Diarrhea, unspecified; R18.8 Other ascites; R10.9 Unspecified abdominal pain; Z79.899 Other long term (current) drug therapy
CPT/HCPCS: 36415; 80048; 80076; 81001; 81003; 83690; 83735; 85025; 85610; 85730; 87086; 99283; 99284

== ENCOUNTER 2022-05-30 11:08 | Day surgery (SDC) | payer MEDICARE, OTHER, SELFPAY ==
--- NOTE | ~2022-05-30 | US_ITS ---
EXAMINATION: ULTRASOUND GUIDED PARACENTESIS. CLINICAL INFORMATION: Liver disease, ascites. COMPARISON: None TECHNIQUE: Following ultrasound-guided paracentesis procedure, benefits and risk, a written consent was obtained. Patient was placed supine and preliminary ultrasound imaging through the abdomen was performed. An optimal site was selected along the left lower quadrant, marked, cleaned and draped in usual sterile manner with 1% lidocaine was injected puncture site. Through a small skin incision a 5 [place] [employer] catheter was advanced into the peritoneal space. After observing fluid return, stylet was withdrawn and catheter connected to vacuum bottle via connecting cannula. After obtaining adequate amount of fluid and observing no more fluid return, catheter was withdrawn and complete hemostasis was achieved at puncture site. Simple Band-Aid applied postprocedure. Patient tolerated procedure extremely well. FINDINGS: Preliminary imaging there is small to moderate amount of free fluid in the peritoneum. Approximately 3.1 L of clear yellowish fluid was drained from left lower quadrant. None of this fluid was sent to lab. US/US paracentesis abd w/image IMPRESSION: Successful ultrasound-guided therapeutic paracentesis performed without immediate complications.
[2022-05-30] MEDS: Lidocaine HCl 1 % MPF 5 ML VIAL SUBCUT (13:53)
[2022-05-30 13:58] VITALS: BP 95/60; PULSE 96; RESP 16; TEMP 37.6; O2SAT 95
[2022-05-30 14:13] VITALS: BP 111/82; PULSE 97; RESP 16; O2SAT 97
[2022-05-30 14:43] VITALS: BP 114/68; PULSE 102; RESP 16; O2SAT 96
[2022-05-30 14:57] VITALS: BP 120/83; PULSE 98; RESP 16; TEMP 37.3; O2SAT 96
== END 2022-05-30 15:10 | disposition home or self-care (01) ==
PROVIDERS: Radiology Diagnostic Radiology; PCP Internal Medicine; Visit Provider Internal Medicine Gastroenterology
DX: K74.3 Primary biliary cirrhosis (principal); R18.8 Other ascites; Z94.4 Liver transplant status; K52.9 Noninfective gastroenteritis and colitis, unspecified; R53.81 Other malaise; D64.9 Anemia, unspecified; D61.818 Other pancytopenia; I11.0 Hypertensive heart disease with heart failure; I50.9 Heart failure, unspecified; F41.1 Generalized anxiety disorder; G93.40 Encephalopathy, unspecified; R25.1 Tremor, unspecified; Z79.899 Other long term (current) drug therapy; Z88.2 Allergy status to sulfonamides; Z88.8 Allergy status to other drugs, medicaments and biological substances; Z85.3 Personal history of malignant neoplasm of breast
CPT/HCPCS: 49083

== ENCOUNTER → 2022-06-23 09:52 | Outpatient (BNVA) | payer MEDICARE, OTHER, SELFPAY | PROVIDERS: PCP Internal Medicine; Visit Provider Internal Medicine Gastroenterology | DX: R19.7 Diarrhea, unspecified (principal); R18.8 Other ascites; G93.40 Encephalopathy, unspecified; E50.9 Vitamin A deficiency, unspecified; E53.1 Pyridoxine deficiency | CPT/HCPCS: 99212 ==

== ENCOUNTER 2022-06-28 09:28 | Day surgery (SDC) | payer MEDICARE, OTHER, SELFPAY ==
[2022-06-28] VITALS (8 sets, daily range): BP systolic 115–125; BP diastolic 42–80; PULSE 85–97; RESP 13–19; TEMP 36.3–36.6; O2SAT 95–99; BMI 26.2
--- NOTE | ~2022-06-28 | US_ITS ---
PROCEDURE: ULTRASOUND PARACENTESIS CLINICAL INDICATION: Diffuse ascites. COMPARISON: Ultrasound-guided paracentesis 05/30/2022. TECHNIQUE: Following explaining ultrasound-guided paracentesis procedure, benefits and risk, a written consent was obtained. Patient was placed supine and preliminary ultrasound imaging was obtained through the abdomen. An optimal site was selected, marked, cleaned and draped in the usual sterile manner. 1% lidocaine was injected at puncture site. Through a small skin incision a 5 [place] [employer] catheter was advanced into the left lower quadrant. After observing fluid return, stylet was withdrawn and catheter connected to vacuum bottle via connecting cannula. After obtaining all fluid and observing no more fluid return, catheter was withdrawn and complete hemostasis achieved at puncture site. Patient tolerated procedure extremely well. Sterile Band-Aid applied postprocedure. FINDINGS: On preliminary imaging there is a large amount of fluid seen within the peritoneal compartment. Approximately 3.3 L of cloudy yellowish fluid was drained from the left lower quadrant for therapeutic purposes. US/US paracentesis abd w/image IMPRESSION: Successful ultrasound-guided therapeutic paracentesis performed.
[2022-06-28 10:22] LABS: MANUAL DIFF FLAG NO
[2022-06-28 10:24] LABS: Basophils Percent Auto 0.6 % (0-2); Eosinophils Absolute Auto 0.1 X10*3/uL (0.0-0.4); Eosinophils Percent Auto 2.4 % (0-4); Hematocrit 38.1 % (37.0-47.0); Hemoglobin 11.9 g/dl (12.0-16.0); Imm Gran Abs Auto 0.02 X10*3/uL (0.00-0.03); Imm Gran Pct Auto 0.6 % (0.0-0.4); Lymphocytes Absolute Auto 0.6 X10*3/uL (1.2-4.9); Lymphocytes Percent Auto 18.8 % (20-40); Mean Corpuscular HGB Conc 31.2 g/dl (31.0-35.0); Mean Corpuscular Hemoglobin 29.8 pg (27.0-33.0); Mean Corpuscular Volume 95.5 fL (80.0-98.0); Mean Platelet Volume 10.3 fL (9.4-12.3); Monocytes Absolute Auto 0.5 X10*3/uL (0.1-1.2); Neutrophils Absolute Auto 2.1 x10*3/uL (2.0-8.3); Neutrophils Percent Auto 62.6 % (45-73); Platelet Count 118 X10*3/uL (160-400); Red Blood Count 3.99 X10*6/uL (4.20-5.50); Red Cell Distribution Width 14.7 % (11.0-16.0); White Blood Count 3.4 X10*3/uL (4.8-10.8)
[2022-06-28 10:34] LABS: INTERNATIONAL NORM RATIO 1.2 (0.9-1.1); Prothrombin Time 14.3 SEC (10.0-13.1)
[2022-06-28 10:39] LABS: Anion Gap 12 (12-20); Carbon Dioxide 27 mmol/L (22-29); Chloride 108 mmol/L (96-108); Creatinine Clr Calc Pharmacy 57.6; Estimated Glomerular Filt Rate > 60; Sodium 143 mmol/L (135-145)
[2022-06-28] MEDS: Lidocaine HCl 1 % MPF 5 ML VIAL SUBCUT (11:56)
== END 2022-06-28 13:44 | disposition home or self-care (01) ==
PROVIDERS: Radiology Diagnostic Radiology; PCP Internal Medicine; Visit Provider Internal Medicine Gastroenterology
DX: R18.8 Other ascites (principal); K74.3 Primary biliary cirrhosis; Z94.4 Liver transplant status; K52.9 Noninfective gastroenteritis and colitis, unspecified; K76.6 Portal hypertension; R16.1 Splenomegaly, not elsewhere classified; I11.0 Hypertensive heart disease with heart failure; I50.9 Heart failure, unspecified; D64.9 Anemia, unspecified; R25.1 Tremor, unspecified; Z79.899 Other long term (current) drug therapy; Z88.8 Allergy status to other drugs, medicaments and biological substances; Z88.2 Allergy status to sulfonamides
CPT/HCPCS: 36415; 49083; 80051; 82565; 85025; 85610; 85730

== ENCOUNTER 2022-07-13 12:01 | Outpatient (REF) | payer MEDICARE, OTHER, SELFPAY ==
[2022-07-13 12:20] LABS: MANUAL DIFF FLAG NO
[2022-07-13 12:29] LABS: Basophils Percent Auto 0.6 % (0-2); Eosinophils Absolute Auto 0.1 X10*3/uL (0.0-0.4); Eosinophils Percent Auto 1.9 % (0-4); Hematocrit 37.1 % (37.0-47.0); Hemoglobin 12.2 g/dl (12.0-16.0); Imm Gran Abs Auto 0.01 X10*3/uL (0.00-0.03); Imm Gran Pct Auto 0.2 % (0.0-0.4); Lymphocytes Absolute Auto 0.8 X10*3/uL (1.2-4.9); Lymphocytes Percent Auto 15.9 % (20-40); Mean Corpuscular HGB Conc 32.9 g/dl (31.0-35.0); Mean Corpuscular Volume 91.2 fL (80.0-98.0); Mean Platelet Volume 10.1 fL (9.4-12.3); Monocytes Absolute Auto 0.5 X10*3/uL (0.1-1.2); Monocytes Percent Auto 9.7 % (2-11); Neutrophils Absolute Auto 3.5 x10*3/uL (2.0-8.3); Neutrophils Percent Auto 71.7 % (45-73); Platelet Count 154 X10*3/uL (160-400); Red Blood Count 4.07 X10*6/uL (4.20-5.50); Red Cell Distribution Width 14.9 % (11.0-16.0); White Blood Count 4.8 X10*3/uL (4.8-10.8)
[2022-07-13 12:49] LABS: Alanine Aminotransferase 26 U/L (0-31); Alkaline Phosphatase 202 U/L (39-117); Anion Gap 11 (12-20); Aspartate Amino Transferase 35 U/L (5-31); Bilirubin Total 2.1 mg/dL (0.0-1.0); Blood Urea Nitrogen 9 mg/dL (9-16); C Reactive Protein 3.33 mg/dL (< or = 0.50); Calcium 8.3 mg/dL (8.4-10.2); Carbon Dioxide 25 mmol/L (22-29); Chloride 109 mmol/L (96-108); Estimated Glomerular Filt Rate > 60; Glucose Random 116 mg/dL (60-115); Potassium 3.4 mmol/L (3.3-5.1); Sodium 142 mmol/L (135-145); Total Protein 5.8 g/dL (6.5-8.0)
[2022-07-14 08:13] LABS: HBS Num1 120.79 mIU/mL (0-7.99); HBc Num1 0.43 S/CO (0.00-0.79); Hepatitis A Antibody IgM 0.28 Index (0-0.79); Hepatitis B Core Antibody Nonreactive (Nonreactive); Hepatitis B Surface Antigen Negative (Negative); ~HepC Num1 0.24 S/CO (0.00-0.79); ~Hepatitis A Antibody IgM Nonreactive (Nonreactive); ~Hepatitis B Surface Antibody REACTIVE (Nonreactive); ~Hepatitis C Antibody Nonreactive (Nonreactive)
[2022-07-15 16:58] LABS: TS Negative Control Passed; TS Panel A 0; TS Panel B 0; TS Positive Control Passed; TSpotTB Negative (Negative)
[2022-07-19 01:18] LABS: Zinc 93 mcg/dL (60-130)
[2022-07-20 02:23] LABS: Vitamin A 18 mcg/dL (38-98)
[2022-07-20 17:23] LABS: Vitamin C 0.6 mg/dL (0.3-2.7)
[2022-07-21 05:59] LABS: Vitamin B1 8 nmol/L (8-30)
[2022-07-21 16:34] LABS: Vitamin B6 5.1 ng/mL (2.1-21.7)
== END 2022-07-13 12:02 | disposition home or self-care (01) ==
LOC: HO.LAB 12:01
PROVIDERS: PCP Internal Medicine; Visit Provider Internal Medicine Gastroenterology
DX: K74.3 Primary biliary cirrhosis (principal); K50.10 Crohn's disease of large intestine without complications; E46 Unspecified protein-calorie malnutrition; K75.81 Nonalcoholic steatohepatitis (NASH); Z11.59 Encounter for screening for other viral diseases; Z72.89 Other problems related to lifestyle
CPT/HCPCS: 36415; 80053; 82180; 84207; 84425; 84590; 84630; 85025; 86140; 86481; 86704; 86706; 86709; 86803; 87340

== ENCOUNTER → 2022-08-07 10:09 | Outpatient (BNVA) | payer MEDICARE, OTHER, SELFPAY | PROVIDERS: PCP Internal Medicine; Visit Provider Internal Medicine Gastroenterology | DX: R19.7 Diarrhea, unspecified (principal); R18.8 Other ascites | CPT/HCPCS: 99212 ==

== ENCOUNTER 2022-08-08 11:23 | Day surgery (SDC) | payer MEDICARE, OTHER, SELFPAY ==
--- NOTE | ~2022-08-08 | US_ITS ---
EXAMINATION: US ULTRASOUND-GUIDED PARACENTESIS CLINICAL INDICATIONS: Ascites. TECHNIQUE: Following explaining ultrasound-guided paracentesis procedure, benefits and risks, a written consent was obtained. Patient was placed supine on fluoroscopy table and preliminary ultrasound imaging was obtained through the abdomen. An optimal site was selected along the right lower quadrant and the site was marked on the skin. The marked site was cleaned and draped in usual sterile manner with 2% chlorhexidine solution. 1% lidocaine was inserted at puncture site. Through a small skin incision a 5 [place] [employer] catheter was advanced into the peritoneal space. After observing fluid return, stylet was withdrawn and catheter connected to vacuum bottle via connecting cannula. After draining all fluid and observing no more fluid return, catheter was withdrawn and complete hemostasis achieved at puncture site. Sterile dressing applied postprocedure. Patient tolerated procedure extremely well. During the procedure patient was monitored by IR nursing and radiologist. FINDINGS: There is moderate free fluid seen on preliminary ultrasound. No focal lesion. Approximately 3.4 L of cloudy gia color fluid was drained from the right lower quadrant for therapeutic reasons. US/US paracentesis abd w/image IMPRESSION: Successful ultrasound-guided therapeutic paracentesis performed without immediate complications. Fluid collected was sent to lab as per referring physician's orders.
[2022-08-08 11:35] VITALS: BMI 26.3
[2022-08-08 12:23] LABS: MANUAL DIFF FLAG NO
[2022-08-08 12:25] LABS: Basophils Percent Auto 1.1 % (0-2); Eosinophils Absolute Auto 0.1 X10*3/uL (0.0-0.4); Eosinophils Percent Auto 2.8 % (0-4); Hematocrit 33.5 % (37.0-47.0); Hemoglobin 10.7 g/dl (12.0-16.0); Imm Gran Abs Auto 0.01 X10*3/uL (0.00-0.03); Imm Gran Pct Auto 0.4 % (0.0-0.4); Lymphocytes Absolute Auto 0.5 X10*3/uL (1.2-4.9); Lymphocytes Percent Auto 17.3 % (20-40); Mean Corpuscular HGB Conc 31.9 g/dl (31.0-35.0); Mean Corpuscular Hemoglobin 29.5 pg (27.0-33.0); Mean Corpuscular Volume 92.3 fL (80.0-98.0); Mean Platelet Volume 9.8 fL (9.4-12.3); Monocytes Absolute Auto 0.4 X10*3/uL (0.1-1.2); Monocytes Percent Auto 15.1 % (2-11); Neutrophils Absolute Auto 1.8 x10*3/uL (2.0-8.3); Neutrophils Percent Auto 63.3 % (45-73); Platelet Count 100 X10*3/uL (160-400); Red Blood Count 3.63 X10*6/uL (4.20-5.50); Red Cell Distribution Width 14.8 % (11.0-16.0); White Blood Count 2.8 X10*3/uL (4.8-10.8)
[2022-08-08 12:32] LABS: INTERNATIONAL NORM RATIO 1.3 (0.9-1.1); Prothrombin Time 14.9 SEC (10.0-13.1)
[2022-08-08 12:35] LABS: Partial Thromboplastin Time 34.9 SEC (26.0-36.4)
[2022-08-08] MEDS: Lidocaine HCl 1 % MPF 5 ML VIAL SUBCUT (14:09)
[2022-08-08 14:10] VITALS: BP 112/70; PULSE 95; RESP 17; TEMP 36.6; O2SAT 99
[2022-08-08 14:25] VITALS: BP 121/76; PULSE 86; RESP 14; O2SAT 98
[2022-08-08 14:40] VITALS: BP 122/63; PULSE 86; RESP 19; O2SAT 98
[2022-08-08 14:55] VITALS: BP 123/65; PULSE 88; RESP 17; O2SAT 98
== END 2022-08-08 15:07 | disposition home or self-care (01) ==
PROVIDERS: Radiology Diagnostic Radiology; PCP Internal Medicine; Visit Provider Radiology Diagnostic Radiology
DX: K74.3 Primary biliary cirrhosis (principal); R18.8 Other ascites; I11.0 Hypertensive heart disease with heart failure; I50.9 Heart failure, unspecified; D64.9 Anemia, unspecified; Z88.8 Allergy status to other drugs, medicaments and biological substances; R25.1 Tremor, unspecified; D61.818 Other pancytopenia; Z94.4 Liver transplant status; Z79.899 Other long term (current) drug therapy; Z88.2 Allergy status to sulfonamides
CPT/HCPCS: 36415; 49083; 85025; 85610; 85730

== ENCOUNTER 2022-08-17 10:16 | Outpatient (REF) | payer MEDICARE, OTHER, SELFPAY ==
--- NOTE | ~2022-08-17 | US_ITS ---
EXAMINATION: US ABDOMEN LIMITED WITH LIVER ELASTOGRAPHY CLINICAL INFORMATION: Nonalcoholic steatohepatitis. COMPARISON: None available. TECHNIQUE: Real-time imaging of the abdominal viscera. Noninvasive ultrasound liver fibrosis assessment is performed using Melinda ElastPQ point quantification shear wave elastography (2D-SWE) with a C5-2 MHz transducer. Multiple elastography samples are obtained. FINDINGS: PANCREAS: Limited. The visualized pancreatic head and body are normal in appearance. The remainder of the pancreas is obscured from visualization by the overlying bowel gas. LIVER: The liver demonstrates normal size, contour and generally increased echogenicity. No focal lesion or intrahepatic biliary duct dilatation. The right lobe measures 11.8 cm in length. The left lobe measures 12.8 cm in length. Portal flow is towards the liver (hepatopetal). Shear wave liver elastography median stiffness is 1.79 m/s (reference: normal median stiffness is 1.3 m/s or less). IQR/median stiffness to assess sampling precision is 0.09 (reference: good quality data set is IQR/median stiffness of 0.15 or less). GALLBLADDER: Normal. The gallbladder is physiologically distended without evidence of stones, sludge, polyps, wall thickening or pericholecystic fluid. COMMON BILE DUCT: Normal in caliber measuring 0.8 cm in diameter. RIGHT KIDNEY: At the interpolar aspect, a 2 mm nonobstructing calculus is seen, with twinkle artifact. No hydronephrosis. No focal parenchymal lesions. The kidney measures 7.9 cm in maximum dimension. FREE FLUID: Moderate. US/US abdomen wolfe w elastography IMPRESSION: 1. There is generalized increase in hepatic echotexture, consistent with fatty infiltration or hepatocellular disease. Please correlate clinically. No focal hepatic mass or intrahepatic biliary dilatation is seen. 2. Liver elastography: Measurements are suggestive of compensated advanced chronic liver disease but need further test for confirmation. 3. There is moderate ascites. 4. A 2 mm nonobstructing right renal calculus is seen. No hydronephrosis is noted. 5. Technically limited ultrasound examination of the pancreas. REFERENCE: Society of Radiologists in Ultrasound Liver Stiffness Thresholds (2020): LIVER STIFFNESS THRESHOLDS: *Liver Stiffness equal or less than 1.3 m/s: High probability of being normal. *Liver Stiffness less than 1.7 m/s: In the absence of other known clinical signs, rules out compensated advanced chronic liver disease. *Liver Stiffness 1.7-2.1 m/s: Suggestive of compensated advanced chronic liver disease but need further test for confirmation. *Liver Stiffness over 2.1 m/s: Rules in compensated advanced chronic liver disease. *Liver Stiffness over 2.4 m/s: Suggestive of clinically significant portal hypertension. QUALITY OF DATA SET: *IQR/Median value equal or less than 0.15 implies a quality data set. *IQR/Median value over 0.15 implies a poor quality data set. SIGNIFICANT CHANGE FROM PRIOR EXAM: Significant change if liver stiffness measurement is 10% or greater from prior exam. OTHER CONSIDERATIONS: The stage of liver fibrosis may be overestimated in the setting of acute hepatitis, liver inflammation, elevated liver function tests, hepatic vascular congestion, obstructive cholestasis, non-fasting state, and infiltrative diseases such as amyloidosis and lymphoma. In some patients with NAFLD, the liver stiffness thresholds for compensated advanced chronic liver disease may be lower. In causes other than viral hepatitis and NAFLD, liver stiffness thresholds are not well established.
== END 2022-08-17 10:17 | disposition home or self-care (01) ==
LOC: HO.US 10:16
PROVIDERS: PCP Internal Medicine; Visit Provider Internal Medicine Gastroenterology
DX: K75.81 Nonalcoholic steatohepatitis (NASH) (principal); K74.60 Unspecified cirrhosis of liver
CPT/HCPCS: 76705; 76981

== ENCOUNTER 2022-08-24 11:28 | Day surgery (SDC) | payer MEDICARE, OTHER, SELFPAY ==
--- NOTE | ~2022-08-24 | US_ITS ---
EXAMINATION: ULTRASOUND-GUIDED PARACENTESIS CLINICAL INFORMATION: Hepatic disease with ascites COMPARISON: August 17, 2022 and August 08, 2022 TECHNIQUE: Ultrasound-guided paracentesis FINDINGS: Informed consent was obtained from the patient prior to the procedure. During this process, the procedure and potential alternatives were explained, along with the intended outcome and benefits. The risks of the procedure, as well as the risk of not doing the procedure, were discussed. The patient was given the opportunity to ask questions regarding the procedure and appeared competent to make medical decisions. A signed consent form which documents this discussion was placed in the medical record. Using sterile technique and ultrasound guidance a 5 Mauritanian needle sheath was directed into the right lower quadrant. A total of 3.3 L of gia fluid was removed. Patient tolerated procedure without difficulty. US/US paracentesis abd w/image IMPRESSION: Paracentesis with removal of 3.3 L of clear yellow fluid.
[2022-08-24 11:43] VITALS: BMI 26.3
[2022-08-24 14:22] VITALS: BP 117/65; PULSE 93; RESP 20; TEMP 36.9; O2SAT 96
[2022-08-24] MEDS: Lidocaine HCl 1 % 20 ML VIAL 10 ML SUBCUT (14:24)
[2022-08-24 14:37] VITALS: BP 111/70; PULSE 96; RESP 18; O2SAT 94
[2022-08-24 14:52] VITALS: BP 106/76; PULSE 99; RESP 16; O2SAT 94
[2022-08-24 15:22] VITALS: BP 116/69; PULSE 100; RESP 20; O2SAT 99
[2022-08-24 15:52] VITALS: BP 125/73; PULSE 99; RESP 18; O2SAT 98
[2022-08-24 16:22] VITALS: BP 123/81; PULSE 97; RESP 16; TEMP 36.9; O2SAT 99
== END 2022-08-24 16:35 | disposition home or self-care (01) ==
PROVIDERS: Radiology Diagnostic Radiology; PCP Internal Medicine; Visit Provider Internal Medicine Gastroenterology
DX: R18.8 Other ascites (principal); K76.9 Liver disease, unspecified; Z94.4 Liver transplant status; K74.3 Primary biliary cirrhosis; K52.9 Noninfective gastroenteritis and colitis, unspecified; I11.0 Hypertensive heart disease with heart failure; I50.9 Heart failure, unspecified; D61.818 Other pancytopenia; D64.9 Anemia, unspecified; R25.1 Tremor, unspecified; Z85.3 Personal history of malignant neoplasm of breast; Z88.2 Allergy status to sulfonamides; Z88.8 Allergy status to other drugs, medicaments and biological substances
CPT/HCPCS: 49083

== ENCOUNTER 2022-09-04 11:25 | Day surgery (SDC) | payer MEDICARE, OTHER, SELFPAY ==
--- NOTE | ~2022-09-04 | US_ITS ---
EXAMINATION: Ultrasound-guided paracentesis CLINICAL INFORMATION: Ascites COMPARISON: Previous exam most recent 08/24/2022 TECHNIQUE: Procedure and risks and benefits including bleeding, infection and low blood pressure were discussed with the patient and informed consent was obtained. The right lower quadrant was prepped and draped in the usual sterile fashion. The skin and soft tissues were anesthetized with 1% lidocaine plain. Using ultrasound guidance and a 5 Sammarinese one-step system, access to the ascitic fluid was obtained. 2.9 L of clear gia-colored fluid was removed. No diagnostic specimen was sent. FINDINGS: There is a large amount of ascites. US/US paracentesis abd w/image IMPRESSION: Ultrasound-guided paracentesis.
[2022-09-04 12:22] VITALS: BMI 26.3
[2022-09-04 14:15] VITALS: BP 107/68; PULSE 86; RESP 18; TEMP 36.6; O2SAT 98
[2022-09-04] MEDS: Lidocaine HCl 1 % MPF 5 ML VIAL SUBCUT (14:20)
[2022-09-04 14:30] VITALS: BP 109/61; PULSE 93; RESP 18; O2SAT 95
[2022-09-04 15:00] VITALS: BP 124/57; PULSE 94; RESP 20; TEMP 36.5; O2SAT 99
== END 2022-09-04 15:16 | disposition home or self-care (01) ==
LOC: HO.SSS 11:25
PROVIDERS: PCP Internal Medicine; Visit Provider Radiology Diagnostic Radiology
DX: K76.9 Liver disease, unspecified (principal); R18.8 Other ascites; Z94.4 Liver transplant status; K74.3 Primary biliary cirrhosis; I11.0 Hypertensive heart disease with heart failure; I50.9 Heart failure, unspecified; D64.9 Anemia, unspecified; R25.1 Tremor, unspecified; D61.818 Other pancytopenia; Z88.2 Allergy status to sulfonamides; Z88.8 Allergy status to other drugs, medicaments and biological substances
CPT/HCPCS: 36415; 49083; 85730

== ENCOUNTER 2022-09-19 09:42 | Day surgery (SDC) | payer MEDICARE, OTHER, SELFPAY ==
--- NOTE | ~2022-09-19 | US_ITS ---
EXAMINATION: Ultrasound-guided paracentesis CLINICAL INFORMATION: Liver disease. Ascites. COMPARISON: Previous exam most recent 09/04/2022 TECHNIQUE: Procedure and risks and benefits including bleeding, infection and low blood pressure were discussed with the patient and informed consent was obtained. The left lower quadrant was prepped and draped in the usual sterile fashion. The skin and soft tissues were anesthetized with 1% lidocaine plain. Using ultrasound guidance and a 5 Romanian one stick system, access to the ascitic fluid was obtained. 5 L of clear gia-colored fluid was removed. No diagnostic specimen was sent. FINDINGS: There is a moderate amount of ascites. US/US paracentesis abd w/image IMPRESSION: Ultrasound-guided paracentesis.
[2022-09-19 10:02] VITALS: BMI 25.6
[2022-09-19 10:17] LABS: MANUAL DIFF FLAG NO
[2022-09-19 10:24] VITALS: BP 122/77; PULSE 86; RESP 18; TEMP 36.8; O2SAT 97
[2022-09-19 10:26] LABS: Basophils Percent Auto 0.5 % (0-2); Eosinophils Absolute Auto 0.2 X10*3/uL (0.0-0.4); Eosinophils Percent Auto 4.5 % (0-4); Hemoglobin 11.6 g/dl (12.0-16.0); Imm Gran Abs Auto 0.01 X10*3/uL (0.00-0.03); Imm Gran Pct Auto 0.3 % (0.0-0.4); Lymphocytes Absolute Auto 0.7 X10*3/uL (1.2-4.9); Lymphocytes Percent Auto 19.1 % (20-40); Mean Corpuscular HGB Conc 31.4 g/dl (31.0-35.0); Mean Corpuscular Hemoglobin 28.6 pg (27.0-33.0); Mean Corpuscular Volume 91.1 fL (80.0-98.0); Mean Platelet Volume 9.4 fL (9.4-12.3); Monocytes Absolute Auto 0.5 X10*3/uL (0.1-1.2); Neutrophils Absolute Auto 2.4 x10*3/uL (2.0-8.3); Neutrophils Percent Auto 62.6 % (45-73); Platelet Count 142 X10*3/uL (160-400); Red Blood Count 4.06 X10*6/uL (4.20-5.50); Red Cell Distribution Width 14.9 % (11.0-16.0); White Blood Count 3.8 X10*3/uL (4.8-10.8)
[2022-09-19 10:31] LABS: INTERNATIONAL NORM RATIO 1.2 (0.9-1.1)
[2022-09-19 10:34] LABS: Partial Thromboplastin Time 35.8 SEC (26.0-36.4)
[2022-09-19 10:42] LABS: Anion Gap 11 (12-20); Blood Urea Nitrogen 9 mg/dL (9-16); Carbon Dioxide 27 mmol/L (22-29); Chloride 106 mmol/L (96-108); Creatinine Clr Calc Pharmacy 61.2; Estimated Glomerular Filt Rate > 60; Potassium 3.9 mmol/L (3.3-5.1); Sodium 140 mmol/L (135-145)
[2022-09-19 12:00] VITALS: BP 120/68; PULSE 86; RESP 16; TEMP 36.8; O2SAT 97
[2022-09-19] MEDS: Lidocaine HCl 1 % MPF 5 ML VIAL SUBCUT (12:03)
[2022-09-19 12:15] VITALS: BP 113/71; PULSE 95; RESP 17; O2SAT 98
[2022-09-19 12:30] VITALS: BP 112/79; PULSE 87; RESP 16; TEMP 36.8; O2SAT 99
== END 2022-09-19 12:35 | disposition home or self-care (01) ==
PROVIDERS: PCP Internal Medicine; Visit Provider Radiology Diagnostic Radiology
DX: R18.8 Other ascites (principal); R11.0 Nausea; R14.0 Abdominal distension (gaseous); D64.9 Anemia, unspecified; I11.0 Hypertensive heart disease with heart failure; I50.9 Heart failure, unspecified; D61.818 Other pancytopenia; R25.1 Tremor, unspecified; Z94.4 Liver transplant status; Z79.899 Other long term (current) drug therapy; Z88.2 Allergy status to sulfonamides; Z88.8 Allergy status to other drugs, medicaments and biological substances; Z85.3 Personal history of malignant neoplasm of breast
CPT/HCPCS: 36415; 49083; 80051; 82565; 84520; 85025; 85610; 85730

== ENCOUNTER 2022-10-09 | Outpatient (REF) | payer MEDICARE, OTHER, SELFPAY ==
[2022-10-10 15:04] LABS: CDiff Gene PCR NEGATIVE (Negative)
[2022-10-11 09:18] LABS: Campylobacter Not Detected (Not Detect.); E. coli EAEC Not Detected (Not Detect.); E. coli EPEC Detected (Not Detect.); E. coli ETEC Not Detected (Not Detect.); Plesiomonas shigelloides Not Detected (Not Detect.); Salmonella Not Detected (Not Detect.); Vibrio Not Detected (Not Detect.); Vibrio Cholerae Not Detected (Not Detect.); Yersinia enterocolitica Not Detected (Not Detect.)
[2022-10-11 09:19] LABS: Adenovirus F 40/41 Not Detected (Not Detect.); Astrovirus Not Detected (Not Detect.); Cryptosporidium Not Detected (Not Detect.); Cyclospora cayetanensis Not Detected (Not Detect.); E. coli STEC Not Detected (Not Detect.); Entamoeba histolytica Not Detected (Not Detect.); Giardia lamblia Not Detected (Not Detect.); Norovirus GI/GII Not Detected (Not Detect.); Rotavirus A Not Detected (Not Detect.); Sapovirus Not Detected (Not Detect.); Shigella sp./EIEC Not Detected (Not Detect.)
== END 2022-10-09 00:01 | disposition home or self-care (01) ==
LOC: HO.LNP
PROVIDERS: Visit Provider Internal Medicine Gastroenterology
DX: R19.7 Diarrhea, unspecified (principal); K51.50 Left sided colitis without complications; E53.1 Pyridoxine deficiency; K74.3 Primary biliary cirrhosis
CPT/HCPCS: 83631; 87493; 87507

== ENCOUNTER 2022-10-09 09:57 | Outpatient (AMB) | payer MEDICARE, OTHER, SELFPAY ==
--- NOTE | 2022-09-15 11:11 | ...WebTmpl.AM.PHNO ---
Nursing Note patient has ongoing need for paracentesis, needs freqent taps, has decompensated cirrhosis.
--- NOTE | 2022-10-09 10:38 | MHC.OFFVIS ---
Intake Vital Signs 10/09/22 10:39 Height 4 ft 11 in Blood Pressure Location Lt brachial Position Sitting Intake Visit Reasons: 2 mnth follow up Allergies hydromorphone [From Dilaudid] Allergy (Severe, Verified 10/09/22 10:39) Hallucinations losartan Allergy (Intermediate, Verified 10/09/22 10:39) Facial Swelling Sulfa (Sulfonamide Antibiotics) Adverse Reaction (Severe, Verified 10/09/22 10:39) Rash Medication List - Last Reconciled 10/09/22 by Kathy Galloway MD alprazolam 1 mg PO DAILY PRN cholecalciferol (vitamin D3) (Vitamin D3) 25 mcg PO DAILY citalopram (Celexa) 40 mg PO DAILY colesevelam 2 tabs in the morning, 3 tabs at night cyanocobalamin (vitamin B-12) (Vitamin B-12) 1,000 mcg PO DAILY furosemide 40 mg PO DAILY gabapentin 600 mg (2 x 300 mg) PO BEDTIME guaifenesin 400 mg (10 mL) PO Q6H PRN ondansetron 4 mg PO Q8H PRN ondansetron 4 mg PO Q8H pantoprazole 40 mg PO QAM pyridoxine (vitamin B6) 100 mg PO BID simethicone (Gas Relief (simethicone)) 125 mg PO BID-QID PRN tacrolimus 0.5 mg PO Q12H ursodiol 1 tab PO BID vedolizumab (Entyvio) 300 mg IV ONCE vitamin A 10,000 units PO DAILY vitamin A palmitate 3,000 mcg PO DAILY zinc acetate (Galzin) 50 mg PO DAILY HPI 2 mnth follow up HPI Details 67 yr old f here for f/u RECAP: She had been seen In GI clinic for investigation of diarrhea with negative studies,including endoscopies and pathology, stool tests, lab work. CTe suggested focal ileitis but capsule endoscopy was negative. Meantime Karen had reduced tacrolimus dose and I gave her colvesalam which helped her diarrhea a lot In the interim she was noted to have ascites and had been c/o LUQ pain for 1 year which was worse with food and position as well as breathing and coughing. Ascitic tap was arranged with 1.4 L removed. Studies revealed SAAG 1.8 and pos cell count for SBP with culture neg samples. She had no fever so she was given PO cipro but repeat labs revealed rising CRP and she had ongoing sx she was advised to come in for further treatment. Labs: WCC of 3.9, hemoglobin of 10.5, hematocrit of 32.8, INR of 1.2, CRP of 5.58, total bili of 1.4, AST of 40, alk-phos of 187, ALT of 27, albumin of 3.4.? UA shows leukocyte Estrace Abdomen pelvic CT: no acute intra-abdominal process, cirrhosis and evidence of portal hypertension with splenomegaly and moderate volume ascites, small right pleural effusion She has been given albumin and IV rocephin Repeat labs with increasing CRP and increasing WCC in ascitic fluid despite meropenam use. cultures for bacteria, fungi and TB were negative, ID recommended stopping antibiotics. I suspected maybe she had worsening ileitis which may have been causing the ascitic fluid findings and high CRP, so she had CTe which was unrevealing. [facility] d/c'ed on budesonide Stool PCR GI panel and c diff were? negative he was admitted recently with cough and sputum 03/2022 Imaging revealed right sided pleural effusion, and moderate ascites. Paracentesis revealed possible SBP with pos cell count 365 but this has actually improved from before. She has been taking budesonide as well for possible enteritis, as previous raised ascitic cell count thought to be due to possible enteritis. Pleural fluid was neg for infection. I applied for entyvio and she is getting this INTERIM: She has been getting entyvio she has been having nausea on and off she has noted worsening diarrhea, and nausea for 3 d she has diffuse abdominal pain and some SOB and cough she is getting paracentesis q 2 weeks she is taking vit b6 and multivitamin still taking 40 mg lasix she has gas issues ? EXAM: GENERAL: The patient is relaxed VITAL SIGNS:see workflow HEENT: Nonicteric sclerae, PERRLA, EOMI. Oropharynx clear. Moist mucous membranes. Conjunctivae appear well perfused. No thyroid mass. CHEST: Chest wall is nontender. HEART: Regular rate and rhythm without murmurs. LUNGS: Clear to auscultation bilaterally. ABDOMEN: Soft, positive bowel sounds, mildly tender epigastrium, no organomegaly.no flank tenderness- bloated, shifting dullness --scar noted from transplant SKIN: No rash, no excessive bruising, petechiae, or purpura. NEUROLOGIC: Cranial nerves II-XII intact without motor/sensory deficit. tremor A/P: 1/? Had been doing better with entyvio, regressed last few days,? infectious gastroenteritis, vs early clearance of entyvio 2/ recurrent ascites, with high SAAG supportive of portal HTN, maybe causing her poor appetite, maybe worse due to 1/ above 3/ mild encephalopathy with tremor 4/ nutrition defcn, tashia severe Vit a and b6 defc PLAN: 1/ cont lasix 40 mg 2/ cont with entyvio--might check level 3/ cont with zinc and other supplements, recheck now 4/ she saw Dr Desai in [place] and told to hold on statin, as well as rifaximin for the meantime--has f/u next month 5/ scheduled paracentesis q 2 weeks--with xanax due to anxiety--upcoming 6/ q 6 months 7/ trial of cipro posisbly, check GI panel and fecal lactoferrin PFSH Medical History Anemia Anxiety Ascites Breast cancer CHF (congestive heart failure) Chronic diarrhea HTN (hypertension) Pancytopenia Primary biliary cholangitis Tremor Surgical History H/O: hysterectomy Hx of colonoscopy Hx of esophagogastroduodenoscopy Liver transplant recipient S/P hip replacement Transplant recipient Family History Mother CAD (coronary artery disease) Sister Ovarian cancer Mental health disorder Social History Household Members: Spouse Household Members Other:: , children Housing: House Do you presently have visiting nurse or other home services: No Alcohol intake: never Patient Tobacco Use Status: Never used Tobacco e-Cigarette/Vaping Use: Never Used service: No Current occupational status: retired Cognitive needs: No Hearing needs: No Vision needs: Yes Assessment & Plan Assessment & Plan (1) Diarrhea: Code(s): R19.7 - Diarrhea, unspecified (2) Vitamin B6 deficiency: Code(s): E53.1 - Pyridoxine deficiency (3) Crohn's colitis: Code(s): K50.10 - Crohn's disease of large intestine without complications (4) Primary biliary cholangitis: Comment: A very pleasant 66-year-old woman known to me from [facility] with history of liver transplant 2015- -PBC Recent liver biopsy shows recurrent PBC Code(s): K74.3 - Primary biliary cirrhosis Orders: Orders Vitamin B6 Today E53.1 - Pyridoxine deficiency, R19.7 - Diarrhea, unspecified GI Panel Today R19.7 - Diarrhea, unspecified Lactoferrin, Fecal, Quant. Today K51.50 - Left sided colitis without complications Medications: New ondansetron 4 mg PO Q8H PRN 90 tabs 1RF nausea and vomiting colesevelam (5 x 625 mg) 2 tabs in the morning, 3 tabs at night 240 tabs 1RF Changed From ondansetron 4 mg PO Q8H PRN 10 tabs 0RF nausea and vomiting To ondansetron 4 mg PO Q8H nausea and vomiting Discontinued alprazolam 1 mg PO DAILY 14 days 14 tabs 0RF Coding Level of Care Code Est Pt Level 4 (65922) Diagnoses Diarrhea R19.7 Vitamin B6 deficiency E53.1 Crohn's colitis K50.10 Primary biliary cholangitis K74.3
== END 2022-10-09 11:01 | disposition home or self-care (01) ==
PROVIDERS: PCP Internal Medicine; Visit Provider Internal Medicine Gastroenterology
DX: R19.7 Diarrhea, unspecified (principal); E53.1 Pyridoxine deficiency; K50.10 Crohn's disease of large intestine without complications; K74.3 Primary biliary cirrhosis
CPT/HCPCS: 99214

== ENCOUNTER → 2022-10-09 10:22 | Outpatient (BNVA) | payer MEDICARE, OTHER, SELFPAY | PROVIDERS: PCP Internal Medicine; Visit Provider Internal Medicine Gastroenterology | DX: R19.7 Diarrhea, unspecified (principal); E53.1 Pyridoxine deficiency; K50.10 Crohn's disease of large intestine without complications; K74.3 Primary biliary cirrhosis | CPT/HCPCS: 99212 ==

== ENCOUNTER 2022-10-10 10:30 | Day surgery (SDC) | payer MEDICARE, OTHER, SELFPAY ==
--- NOTE | ~2022-10-10 | US_ITS ---
EXAMINATION: Ultrasound-guided paracentesis CLINICAL INFORMATION: Liver disease. Ascites. COMPARISON: Previous exam most recent 09/19/2022 TECHNIQUE: Procedure and risks and benefits including bleeding, infection and low blood pressure were discussed with the patient and informed consent was obtained. The left lower quadrant was prepped and draped in the usual sterile fashion. The skin and soft tissues were anesthetized with 1% lidocaine plain. Using ultrasound guidance and a 5 Gibraltarian one stick system, access to the ascitic fluid was obtained. 5 L of clear gia-colored fluid was removed. No diagnostic specimen was sent. FINDINGS: There is a moderate amount of ascites. US/US paracentesis abd w/image IMPRESSION: Ultrasound-guided paracentesis.
[2022-10-10 12:11] LABS: MANUAL DIFF FLAG NO
[2022-10-10 12:31] LABS: Alanine Aminotransferase 17 U/L (0-31); Alkaline Phosphatase 208 U/L (39-117); Anion Gap 13 (12-20); Aspartate Amino Transferase 31 U/L (5-31); Bilirubin Total 2.3 mg/dL (0.0-1.0); Blood Urea Nitrogen 8 mg/dL (9-16); C Reactive Protein 4.64 mg/dL (< or = 0.50); Calcium 9.2 mg/dL (8.4-10.2); Carbon Dioxide 26 mmol/L (22-29); Chloride 108 mmol/L (96-108); Estimated Glomerular Filt Rate > 60; Glucose Random 91 mg/dL (60-115); Potassium 3.9 mmol/L (3.3-5.1); Sodium 143 mmol/L (135-145); Total Protein 6.2 g/dL (6.5-8.0)
[2022-10-10 12:36] VITALS: BMI 25.9
[2022-10-10 12:56] LABS: Basophils Percent Auto 0.9 % (0-2); Eosinophils Absolute Auto 0.1 X10*3/uL (0.0-0.4); Eosinophils Percent Auto 2.8 % (0-4); Hematocrit 37.4 % (37.0-47.0); Hemoglobin 11.7 g/dl (12.0-16.0); Imm Gran Abs Auto 0.01 X10*3/uL (0.00-0.03); Imm Gran Pct Auto 0.3 % (0.0-0.4); Lymphocytes Absolute Auto 0.5 X10*3/uL (1.2-4.9); Lymphocytes Percent Auto 15.1 % (20-40); Mean Corpuscular HGB Conc 31.3 g/dl (31.0-35.0); Mean Corpuscular Volume 92.6 fL (80.0-98.0); Monocytes Absolute Auto 0.4 X10*3/uL (0.1-1.2); Monocytes Percent Auto 12.5 % (2-11); Neutrophils Absolute Auto 2.4 x10*3/uL (2.0-8.3); Neutrophils Percent Auto 68.4 % (45-73); Platelet Count 141 X10*3/uL (160-400); Red Blood Count 4.04 X10*6/uL (4.20-5.50); White Blood Count 3.5 X10*3/uL (4.8-10.8)
[2022-10-10 13:20] LABS: Erythrocyte Sedimentation Rate 10 MM/HR (0-20)
[2022-10-10] MEDS: Lidocaine HCl 1 % MPF 5 ML VIAL SUBCUT (13:56)
[2022-10-10 14:55] VITALS: BP 108/67; PULSE 92; RESP 20; TEMP 37.4; O2SAT 91
[2022-10-10 15:10] VITALS: BP 147/82; PULSE 91; RESP 20; O2SAT 96
[2022-10-10 15:25] VITALS: BP 109/69; PULSE 88; RESP 20; O2SAT 97
[2022-10-10 15:40] VITALS: BP 107/67; PULSE 98; RESP 20; O2SAT 98
[2022-10-10 15:55] VITALS: BP 134/84; PULSE 93; RESP 18; TEMP 37.4; O2SAT 97
[2022-10-14 02:53] LABS: Zinc 64 mcg/dL (60-130)
[2022-10-14 20:38] LABS: Vitamin A 15 mcg/dL (38-98)
[2022-10-15 14:18] LABS: Vitamin B6 19.3 ng/mL (2.1-21.7)
== END 2022-10-10 16:09 | disposition home or self-care (01) ==
LOC: HO.SSS 10:30
PROVIDERS: Radiology Diagnostic Radiology; PCP Internal Medicine; Visit Provider Internal Medicine Gastroenterology
DX: R18.8 Other ascites (principal); K74.3 Primary biliary cirrhosis
CPT/HCPCS: 36415; 49083; 80053; 84207; 84590; 84630; 85025; 85652; 86140

== ENCOUNTER → 2022-10-10 13:30 | Outpatient (BNV) | payer MEDICARE, OTHER, SELFPAY | PROVIDERS: PCP Internal Medicine; Visit Provider Student in an Organized Health Care Education/Training Program | DX: R18.8 Other ascites (principal) | CPT/HCPCS: 49083 ==

== ENCOUNTER 2022-10-24 11:46 | Day surgery (SDC) | payer MEDICARE, OTHER, SELFPAY ==
--- NOTE | ~2022-10-24 | US_ITS ---
EXAMINATION: Ultrasound-guided paracentesis CLINICAL INFORMATION: Liver disease. Ascites. COMPARISON: Previous exam most recent 10/10/2022 TECHNIQUE: Procedure and risks and benefits including bleeding, infection and low blood pressure were discussed with the patient and informed consent was obtained. The left lower quadrant was prepped and draped in the usual sterile fashion. The skin and soft tissues were anesthetized with 1% lidocaine plain. Using ultrasound guidance and a 5 Beninese one stick system, access to the ascitic fluid was obtained. 5.1 L of clear gia-colored fluid was removed. No diagnostic specimen was sent. FINDINGS: There is a moderate amount of ascites. US/US paracentesis abd w/image IMPRESSION: Ultrasound-guided paracentesis.
[2022-10-24] MEDS: Lidocaine HCl 1 % MPF 5 ML VIAL SUBCUT (14:35)
[2022-10-24 14:40] VITALS: BP 108/62; PULSE 85; RESP 18; TEMP 37.2; O2SAT 95
[2022-10-24 14:55] VITALS: BP 117/53; PULSE 88; RESP 16; O2SAT 96
[2022-10-24 15:10] VITALS: BP 105/67; PULSE 86; RESP 16; O2SAT 97
[2022-10-24 15:25] VITALS: BP 130/74; PULSE 87; RESP 16; TEMP 37.2; O2SAT 98
== END 2022-10-24 15:36 | disposition home or self-care (01) ==
PROVIDERS: Radiology Diagnostic Radiology; PCP Internal Medicine; Visit Provider Internal Medicine Gastroenterology
DX: K76.9 Liver disease, unspecified (principal); R18.8 Other ascites; Z94.4 Liver transplant status; I11.0 Hypertensive heart disease with heart failure; I50.9 Heart failure, unspecified; D64.9 Anemia, unspecified; F41.1 Generalized anxiety disorder; Z79.899 Other long term (current) drug therapy; Z88.2 Allergy status to sulfonamides; Z88.8 Allergy status to other drugs, medicaments and biological substances
CPT/HCPCS: 49083

== ENCOUNTER → 2022-10-24 13:30 | Outpatient (BNV) | payer MEDICARE, OTHER, SELFPAY | PROVIDERS: PCP Internal Medicine; Visit Provider Student in an Organized Health Care Education/Training Program | DX: K74.3 Primary biliary cirrhosis (principal); R18.8 Other ascites | CPT/HCPCS: 49083 ==

== ENCOUNTER 2022-11-07 11:47 | Day surgery (SDC) | payer MEDICARE, OTHER, SELFPAY ==
--- NOTE | ~2022-11-07 | US_ITS ---
Paracentesis INDICATIONS: Recurrent ascites After informed written consent was obtained an official timeout was performed immediately prior to the procedure. PROCEDURE: Initial ultrasound surveillance of the abdomen was performed. There is diffuse ascites noted throughout the abdomen. Under ultrasound guidance a 5 Lao Yueh catheter was then placed into the right lower quadrant. 5.3 L of clear yellow fluid was drained. US/US paracentesis abd w/image IMPRESSION: Paracentesis with 5.3 L of fluid drained
[2022-11-07 12:08] LABS: MANUAL DIFF FLAG NO
[2022-11-07 12:11] VITALS: BMI 26.3
[2022-11-07 12:11] LABS: Basophils Percent Auto 0.5 % (0-2); Eosinophils Absolute Auto 0.1 X10*3/uL (0.0-0.4); Hemoglobin 11.4 g/dl (12.0-16.0); Imm Gran Abs Auto 0.01 X10*3/uL (0.00-0.03); Imm Gran Pct Auto 0.3 % (0.0-0.4); Lymphocytes Absolute Auto 0.6 X10*3/uL (1.2-4.9); Lymphocytes Percent Auto 17.4 % (20-40); Mean Corpuscular HGB Conc 31.7 g/dl (31.0-35.0); Mean Corpuscular Hemoglobin 29.3 pg (27.0-33.0); Mean Corpuscular Volume 92.5 fL (80.0-98.0); Mean Platelet Volume 10.1 fL (9.4-12.3); Monocytes Absolute Auto 0.5 X10*3/uL (0.1-1.2); Neutrophils Absolute Auto 2.4 x10*3/uL (2.0-8.3); Neutrophils Percent Auto 65.8 % (45-73); Platelet Count 125 X10*3/uL (160-400); Red Blood Count 3.89 X10*6/uL (4.20-5.50); Red Cell Distribution Width 15.9 % (11.0-16.0); White Blood Count 3.7 X10*3/uL (4.8-10.8)
[2022-11-07 12:18] LABS: INTERNATIONAL NORM RATIO 1.2 (0.9-1.1); Prothrombin Time 14.1 SEC (11.1-13.3)
[2022-11-07 12:21] LABS: Partial Thromboplastin Time 34.9 SEC (26.0-36.4)
[2022-11-07 14:05] VITALS: BP 109/59; PULSE 88; RESP 14; TEMP 36.6; O2SAT 98
[2022-11-07 14:20] VITALS: BP 112/63; PULSE 85; RESP 16; O2SAT 98
[2022-11-07] MEDS: Lidocaine HCl 1 % MPF 5 ML VIAL SUBCUT (14:31)
[2022-11-07 14:35] VITALS: BP 113/65; PULSE 87; RESP 14; O2SAT 99
[2022-11-07 14:50] VITALS: BP 119/73; PULSE 89; RESP 16; O2SAT 98
[2022-11-07 15:05] VITALS: BP 114/69; PULSE 86; RESP 14; TEMP 36.7; O2SAT 99
== END 2022-11-07 15:10 | disposition home or self-care (01) ==
PROVIDERS: Radiology Diagnostic Radiology; PCP Internal Medicine; Visit Provider Internal Medicine Gastroenterology
DX: R18.8 Other ascites (principal); R10.12 Left upper quadrant pain; K76.9 Liver disease, unspecified; K74.3 Primary biliary cirrhosis; R79.82 Elevated C-reactive protein (CRP); I11.0 Hypertensive heart disease with heart failure; I50.9 Heart failure, unspecified; D64.9 Anemia, unspecified; K50.10 Crohn's disease of large intestine without complications; Z79.899 Other long term (current) drug therapy; Z94.4 Liver transplant status
CPT/HCPCS: 36415; 49083; 85025; 85610; 85730

== ENCOUNTER → 2022-11-07 12:40 | Outpatient (BNV) | payer MEDICARE, OTHER, SELFPAY | PROVIDERS: PCP Internal Medicine; Visit Provider Radiology Vascular & Interventional Radiology | DX: R18.8 Other ascites (principal) | CPT/HCPCS: 49083 ==

== ENCOUNTER 2022-11-21 11:57 | Day surgery (SDC) | payer MEDICARE, OTHER, SELFPAY ==
--- NOTE | ~2022-11-21 | US_ITS ---
Paracentesis INDICATIONS: Recurrent ascites After informed and written consent was obtained an official timeout was performed immediately prior to the procedure. PROCEDURE: Initial ultrasound surveillance demonstrates a moderate amount of fluid throughout the abdomen. Under ultrasound guidance the skin was prepped and draped in usual fashion in the right lower quadrant. 1% Xylocaine was used for local anesthetic. A 5 Lebanese Yueh catheter was placed into the right lower quadrant under ultrasound guidance. 3.3 L of clear fluid was drained. US/US paracentesis abd w/image IMPRESSION: Paracentesis with 3.3 L of fluid drained
[2022-11-21] MEDS: Lidocaine HCl 1 % MPF 5 ML VIAL SUBCUT (14:17)
[2022-11-21 14:20] VITALS: BP 114/75; PULSE 85; RESP 20; TEMP 37.3; O2SAT 99
[2022-11-21 14:35] VITALS: BP 130/67; PULSE 85; RESP 20; O2SAT 98
[2022-11-21 14:50] VITALS: BP 127/77; PULSE 84; RESP 20; O2SAT 98
[2022-11-21 15:16] VITALS: BP 136/84; PULSE 84; RESP 20; TEMP 36.3; O2SAT 99
== END 2022-11-21 15:42 | disposition home or self-care (01) ==
PROVIDERS: Radiology Diagnostic Radiology; PCP Internal Medicine; Visit Provider Internal Medicine Gastroenterology
DX: R18.8 Other ascites (principal); K76.9 Liver disease, unspecified
CPT/HCPCS: 49083

== ENCOUNTER → 2022-11-21 13:30 | Outpatient (BNV) | payer MEDICARE, OTHER, SELFPAY | PROVIDERS: PCP Internal Medicine; Visit Provider Radiology Vascular & Interventional Radiology | DX: K76.9 Liver disease, unspecified (principal); R18.8 Other ascites | CPT/HCPCS: 49083 ==

== ENCOUNTER 2022-12-08 12:40 | Day surgery (SDC) | payer MEDICARE, OTHER, SELFPAY ==
--- NOTE | ~2022-12-08 | US_ITS ---
EXAMINATION: Ultrasound-guided paracentesis CLINICAL INFORMATION: Ascites COMPARISON: None. TECHNIQUE: Procedure and risks and benefits including bleeding, infection and low blood pressure were discussed with the patient and informed consent was obtained. The left lower quadrant was prepped and draped in the usual sterile fashion. The skin and soft tissues were anesthetized with 1% lidocaine plain. Using ultrasound guidance and a 5 [place] Islander one stick system, access to the ascitic fluid was obtained. 5.5 L of clear yellow fluid was removed. No diagnostic specimen was sent. FINDINGS: There is a large amount of ascites. US/US paracentesis abd w/image IMPRESSION: Ultrasound-guided paracentesis.
[2022-12-08 13:18] VITALS: BMI 26.3
[2022-12-08] MEDS: Lidocaine HCl 1 % MPF 5 ML VIAL SUBCUT (15:39)
[2022-12-08 15:40] VITALS: BP 131/48; PULSE 83; RESP 20; TEMP 36.6; O2SAT 99
[2022-12-08 15:58] VITALS: BP 130/71; PULSE 90; RESP 20; O2SAT 98
[2022-12-08 16:13] VITALS: BP 131/72; PULSE 92; RESP 20; O2SAT 98
== END 2022-12-08 17:00 | disposition home or self-care (01) ==
PROVIDERS: Radiology Diagnostic Radiology; PCP Internal Medicine; Visit Provider Internal Medicine Gastroenterology
DX: K74.3 Primary biliary cirrhosis (principal); R19.7 Diarrhea, unspecified; K50.10 Crohn's disease of large intestine without complications; E53.1 Pyridoxine deficiency; I11.0 Hypertensive heart disease with heart failure; Z94.4 Liver transplant status; I50.9 Heart failure, unspecified; D64.9 Anemia, unspecified; F41.1 Generalized anxiety disorder; Z85.3 Personal history of malignant neoplasm of breast; Z79.899 Other long term (current) drug therapy; Z88.2 Allergy status to sulfonamides; Z88.8 Allergy status to other drugs, medicaments and biological substances
CPT/HCPCS: 49083

== ENCOUNTER → 2022-12-08 14:55 | Outpatient (BNV) | payer MEDICARE, OTHER, SELFPAY | PROVIDERS: PCP Internal Medicine; Visit Provider Radiology Diagnostic Radiology | DX: K76.9 Liver disease, unspecified (principal); R18.8 Other ascites | CPT/HCPCS: 49083 ==

== ENCOUNTER 2022-12-12 09:02 | Outpatient (REF) | payer MEDICARE, OTHER, SELFPAY ==
--- NOTE | ~2022-12-12 | MM_ITS ---
EXAMINATION: BONE DENSITOMETRY CLINICAL INDICATION: Asymptomatic menopausal state. COMPARISON: This is the patient's baseline examination. TECHNIQUE: Using a [employer] DXA System (software version: 13.1) manufactured by [employer] dual-energy x-ray absorptiometry was performed of the lumbar spine and the right forearm radius 33%. The patient has had bilateral hip replacements.. The images are of good technical quality. Summary results are attached. FINDINGS: AP SPINE L1-L4: BMD 0.869 g/cm2, Z-score -0.8, T-score -2.6, osteoporosis. RIGHT FOREARM RADIUS 33%: BMD 0.623 g/cm2, Z-score -1.2, T-score -2.9, osteoporosis. IDENTIFIED RISK FACTORS: History of adult fracture. Recurrent falls. Height loss. Secondary osteoporosis (chronic liver disease, early menopause). Hysterectomy. Bilateral oophorectomy. HISTORY OF FRACTURE: Wrist. MEDICATIONS: Calcium supplement and/or multivitamin. Vitamin D. MM/XR DEXA axial skeleton IMPRESSION: 1. DIAGNOSIS: Severe osteoporosis based on the lowest T-score value of -2.9 in the right forearm radius 33% and the prior history of fracture applying World Health Organization criteria. 2. 10-YEAR FRACTURE RISK PREDICTION, FRAX: According to the guidelines, FRAX calculation should only be performed on patients in the osteopenia bone density category.?Therefore, FRAX was not performed on this patient.? 3. Treatment Recommendations: NOF guidelines recommend consideration for treatment in postmenopausal women and men age 50 and older presenting with the following: -A hip or vertebral (clinical or morphometric) fracture. -T-score less than or equal to -2.5 at the femoral neck or spine after appropriate evaluation to exclude secondary causes. -Low bone mass at the hip or spine and a 10-year fracture probability by FRAX of greater than or equal to 3% for hip fracture or greater than or equal to 20% for major osteoporotic fracture based on the [place] adapted WHO algorithm. 4. Other Recommendations: All treatment decisions require clinical judgment and consideration of individual patient factors, including patient preferences, comorbidities, previous drug use, risk factors not captured in the FRAX model (e.g. frailty, falls, vitamin D deficiency, increased bone turnover, interval significant decline in bone density) and possible under or overestimation of fracture risk by FRAX. Additional medical evaluation for secondary cause of low bone mineral density may be appropriate. FUTURE SCAN RECOMMENDATION: People with diagnosed cases of osteoporosis or at high risk for fracture should have regular bone mineral density tests. For patients eligible for Medicare, routine testing is allowed once every 2 years. The testing frequency can be increased to one year for patients who have rapidly progressing disease, those who are receiving or discontinuing medical therapy to restore bone mass, or have additional risk factors.
== END 2022-12-12 09:03 | disposition home or self-care (01) ==
LOC: HO.MAMMO 09:02
PROVIDERS: PCP Internal Medicine; Visit Provider Internal Medicine
DX: Z13.820 Encounter for screening for osteoporosis (principal); Z78.0 Asymptomatic menopausal state
CPT/HCPCS: 77080

== ENCOUNTER → 2022-12-12 09:15 | Outpatient (BNV) | payer MEDICARE, OTHER, SELFPAY | PROVIDERS: PCP Internal Medicine; Visit Provider Radiology Diagnostic Radiology | DX: M81.0 Age-related osteoporosis without current pathological fracture (principal) | CPT/HCPCS: 77080; 77081 ==

== ENCOUNTER 2022-12-15 10:08 | Outpatient (AMB) | payer MEDICARE, OTHER, SELFPAY ==
--- NOTE | 2022-12-15 10:09 | A.OFFVIS_ITS ---
Intake Vital Signs 12/15/22 10:11 Height 4 ft 11.5 in Weight 127 lb 13.89 oz BMI 25.4 Blood Pressure Location Lt brachial Position Sitting Intake Visit Reasons: Follow up Intake Note: Praveena presents in the office as a follow up. CC: States that she has not been feeling well - sick to her stomach and she feels it going into her throat. She has the worst taste in her mouth and she has never had this before. She states that she also has been dizzy - she has fell a couple times. Allergies hydromorphone [From Dilaudid] Allergy (Severe, Verified 12/15/22 10:12) Hallucinations losartan Allergy (Intermediate, Verified 12/15/22 10:12) Facial Swelling Sulfa (Sulfonamide Antibiotics) Adverse Reaction (Severe, Verified 12/15/22 10:12) Rash HPI Follow up HPI Details 67 yr old f here for follow up RECAP: She had been seen In GI clinic for investigation of diarrhea with negative studies,including endoscopies and pathology, stool tests, lab work. CTe suggested focal ileitis but capsule endoscopy was negative. Meantime Karen had reduced tacrolimus dose and I gave her colvesalam which helped her diarrhea a lo t In the interim she was noted to have ascites and had been c/o LUQ pain for 1 year which was worse with food and position as well as breathing and coughing. Ascitic tap was arranged with 1.4 L removed. Studies revealed SAAG 1.8 and pos cell count for SBP with culture neg samples. She had no fever so she was given PO cipro but repeat labs revealed rising CRP and she had ongoing sx she was advised to come in for further treatment. Labs: WCC of 3.9, hemoglobin of 10.5, hematocrit of 32.8, INR of 1.2, CRP of 5.58, total bili of 1.4, AST of 40, alk-phos of 187, ALT of 27, albumin of 3.4.? UA shows leukocyte Estrace Abdomen pelvic CT: no acute intra-abdominal process, cirrhosis and evidence of portal hypertension with splenomegaly and moderate volume ascites, small right pleural effusion She has been given albumin and IV rocephin Repeat labs with increasing CRP and increasing WCC in ascitic fluid despite meropenam use. cultures for bacteria, fungi and TB were negative, ID recommended stopping antibiotics. I suspected maybe she had worsening ileitis which may have been causing the ascitic fluid findings and high CRP, so she had CTe which was unrevealing. changed to [facility] anf d/c'ed on budesonide Stool PCR GI panel and c diff were? negative she was admitted with cough and sputum 03/2022 Imaging revealed right sided pleural effusion, and moderate ascites. Paracentesis revealed possible SBP with pos cell count 365 but this has actually improved from before. She has been taking budesonide as well for possible enteritis, as previous raised ascitic cell count thought to be due to possible enteritis. Pleural fluid was neg for infection. I applied for entyvio and she is getting this INTERIM: she has been back to [facility] work up for possble listing she has microscopic hematuria she has been having more syncopal episodes recently speech has been altered, more slurred, more confusion, nausea more falls, but denies she hit her head she has continued to get entyvio diarrhea is better, been taking colesevlam, stool is more formed, usu in the morning she is having mid abdominal pain, getting paracentesis q 2 weeks she is taking vit b6 and multivitamin she has no lactulose at home, not been on for long time she has noted ? EXAM: GENERAL: The patient is tremulous, speech slurred at times, nauseated VITAL SIGNS:see workflow HEENT: Nonicteric sclerae, PERRLA, EOMI. Oropharynx clear. Moist mucous membranes. Conjunctivae appear well perfused. No thyroid mass. CHEST: Chest wall is nontender. HEART: Regular rate and rhythm without murmurs. LUNGS: Clear to auscultation bilaterally. ABDOMEN: Soft, positive bowel sounds, mildly tender epigastrium, no organomegaly.no flank tenderness- bloated, shifting dullness --scar noted from transplant SKIN: No rash, + bruising, petechiae, or purpura. NEUROLOGIC: Cranial nerves II-XII intact without motor/sensory deficit. tremor, nystagums BP L and standing with 20 mmHG drop A/P: 1/? fraility, decompensation related to her liver disease 2/ recurrent ascites, with high SAAG sup portive of portal HTN, maybe causing her poor appetite, maybe worse due to 1/ above 3/ encephalopathy with tremor, slurred s peech, blurred, vision 4/ nutrition defcn, tashia severe Vit a and b6 defc PLAN: 1/ cont lasix 40 mg 2/ cont with entyvio--might check level 3/ cont with zinc and other supplements, recheck now 4/ she saw Dr Desai in [place] and told t o hold on statin, as well as rifaximin for the meantime--has f/u next month 5/ scheduled paracentesis q 2 weeks--wit h xanax due to anxiety--upcoming 6/ US q 6 months 7/ send to ED today for assessment r/o s ubdural, lyte deficiencies, UTI, other infection, re tap of ascites, might need admisison for observation and PT, tacrolimus level, MAg level --would commence rifaximin in case of hepatic encephalopathy [facility] Medical History (Updated 12/05/22 @ 15:41 by Taylor Zapata MD) Ascites Anemia CHF (congestive heart failure) Pancytopenia Anxiety HTN (hypertension) Tremor Chronic diarrhea Primary biliary cholangitis Breast cancer Surgical History Transplant recipient Hx of colonoscopy Hx of esophagogastroduodenoscopy H/O: hysterectomy S/P hip replacement Liver transplant recipient Family History Mother CAD (coronary artery disease) Sister Ovarian cancer Mental health disorder Social History Household Members: Spouse Household Members Other:: , children Housing: House Do you presently have visiting nurse or other home services: No Alcohol intake: never Patient Tobacco Use Status: Never used Tobacco e-Cigarette/Vaping Use: Never Used service: No Current occupational status: retired Cognitive needs: No Hearing needs: No Vision needs: Yes Physical Exam Vital Signs: BMI result Body Mass Index 25.4 Assessment & Plan Assessment & Plan (1) Ascites: Code(s): R18.8 - Other ascites (2) Crohn's colitis: Code(s): K50.10 - Crohn's disease of large intestine without complications (3) Primary biliary cholangitis: Comment: A very pleasant 66-year-old woman known to me from [facility] with history of liver transplant -PBC Recent liver biopsy shows recurrent PBC Code(s): K74.3 - Primary biliary cirrhosis Coding Level of Care Code Est Pt Level 4 (75742) Diagnoses Ascites R18.8 Crohn's colitis K50.10 Primary biliary cholangitis K74.3
[2022-12-15 10:11] VITALS: BMI 25.4
== END 2022-12-15 11:14 | disposition home or self-care (01) ==
PROVIDERS: PCP Internal Medicine; Visit Provider Internal Medicine Gastroenterology
DX: R18.8 Other ascites (principal); K50.10 Crohn's disease of large intestine without complications; K74.3 Primary biliary cirrhosis
CPT/HCPCS: 99214

== ENCOUNTER → 2022-12-15 10:08 | Outpatient (BNVA) | payer MEDICARE, OTHER, SELFPAY | PROVIDERS: PCP Internal Medicine; Visit Provider Internal Medicine Gastroenterology ==

== ENCOUNTER 2022-12-15 10:47 | Observation (INO) | payer MEDICARE, OTHER, SELFPAY ==
[2022-12-15] VITALS (14 sets, daily range): BP systolic 118–169; BP diastolic 73–97; PULSE 84–102; RESP 16–20; TEMP 36.5–36.9; O2SAT 97–99; BMI 24.2; BMI 24.0
--- NOTE | ~2022-12-15 | US_ITS ---
EXAMINATION: Ultrasound-guided paracentesis CLINICAL INFORMATION: Ascites. Mental status change. COMPARISON: Previous exam most recent 12/08/2022 TECHNIQUE: Procedure and risks and benefits including bleeding, infection and low blood pressure were discussed with the patient and informed consent was obtained. The right lower quadrant was prepped and draped in the usual sterile fashion. The skin and soft tissues were anesthetized with 1% lidocaine plain. Using ultrasound guidance and a 5 Czech Yueh needle, access to the ascitic fluid was obtained. 4.2 L of clear dark orange fluid was removed. Diagnostic specimen was sent. FINDINGS: There is a large amount of ascites. US/US paracentesis abd w/image IMPRESSION: Ultrasound-guided paracentesis.
--- NOTE | ~2022-12-15 | CT_ITS ---
EXAMINATION: CT HEAD WITHOUT CONTRAST CLINICAL INFORMATION: Multiple falls. Altered mental status. COMPARISON: CT head from 01/17/2022. TECHNIQUE: Contiguous axial imaging was performed from the skull base to vertex without intravenous administration of contrast. This CT examination was performed using dose optimization techniques as appropriate, variously including the following: *Automated exposure control. *Adjustment of mA and/or kV according to patient size (this includes techniques or standardized protocols for targeted exams where dose is matched to indication/reason for exam; i.e. extremities or head). *Use of iterative reconstruction technique. DLP: 570 mGy-cm FINDINGS: There is a small region of loss monreal-white matter differentiation within the right parietal lobe that is new compared to 2021 but otherwise appears subacute to chronic in nature with a degree of volume loss. No evidence of acute intracranial hemorrhage. Scattered and partially confluent hypoattenuation in the periventricular and deep white matter are consistent with moderate microangiopathy. Proportional prominence of the ventricles and sulcal spaces without evidence of obstructive hydrocephalus. No abnormal mass effect or midline shift. No extra-axial fluid collections. No acute soft tissue or osseous abnormalities. Mild mucosal thickening of the paranasal sinuses. The mastoid air cells and middle ear cavities are clear. Moderate right-sided and mild left-sided temporomandibular joint arthropathy. Bilateral lens extractions. CT/CT head/brain wo IV con IMPRESSION: 1. No evidence of acute intracranial hemorrhage. 2. There is a small region of encephalomalacia within the right parietal lobe that is new compared to 2021 but otherwise appears subacute to chronic in nature. 3. Moderate underlying microangiopathy and generalized cerebral volume loss.
--- NOTE | 2022-12-15 11:03 | ECG_ITS ---
Test Reason : ams Blood Pressure : / mmHG Vent. Rate : 093 BPM Atrial Rate : 093 BPM P-R Int : 154 ms QRS Dur : 078 ms QT Int : 374 ms P-R-T Axes : 025 -16 011 degrees QTc Int : 465 ms Normal sinus rhythm Low voltage QRS Nonspecific T wave abnormality Septal infarct , age undetermined Abnormal ECG When compared with ECG of 03-FEB-2022 20:28, Nonspecific T wave abnormality is now Present Referred By: Generic ED Physician Electronically Signed By:TERESA RODRIGUEZ
--- NOTE | 2022-12-15 11:21 | ED_ITS ---
HPI - General Adult General Chief complaint: General Medical Stated complaint: AMS Time Seen by Provider: 12/15/22 13:56 Source: patient, RN notes reviewed and old records reviewed Mode of arrival: ambulatory History of Present Illness HPI narrative: 67-year-old female with a past medical history of liver transplant currently on transplant list, anemia, CHF, pancytopenia, anxiety, hypertension, chronic diarrhea, ascites with bi-weekly paracentesis (last paracentesis 12/08) presenting to ED sent in from be GI office due to increased shakiness, confusion, frequent falls, & generalized fatigue /weakness worsening over the past month. Last fall ?few weeks ago, patient denies hitting head during falls, states falls due to generalized weakness and lightheadedness. Also reports abdominal distension. Denies abdominal pain at present, fever, nausea/ vomiting, diarrhea, room spinning dizziness, CP/SOB Related Data Home Medications Medication Instructions Recorded Confirmed ursodiol 500 mg tablet 1 tab PO BID 11/02/21 11/07/22 cholecalciferol (vitamin D3) 25 25 mcg PO DAILY 04/25/22 11/07/22 mcg (1,000 unit) capsule (Vitamin D3) tacrolimus 0.5 mg capsule, 0.5 mg PO Q12H 08/22/22 11/07/22 immediate-release alprazolam 1 mg tablet 1 mg PO DAILY PRN Anxiety 09/04/22 11/07/22 pyridoxine (vitamin B6) 100 mg 100 mg PO BID 09/04/22 11/07/22 tablet vitamin A 10,000 unit tablet 10,000 unit PO DAILY 09/04/22 11/07/22 simethicone 125 mg capsule (Gas 125 mg PO BID-QID PRN flatus 10/09/22 11/07/22 Relief (simethicone)) magnesium glycinate 100 mg PO DAILY 11/07/22 11/07/22 bupropion HCl 75 mg tablet 75 mg PO DAILY 11/21/22 11/21/22 Previous Rx's Medication Instructions Recorded cyanocobalamin (vitamin B-12) 1,000 mcg PO DAILY #90 tabs 04/25/22 1,000 mcg tablet (Vitamin B-12) citalopram 40 mg tablet (Celexa) 40 mg PO DAILY #90 tabs 06/05/22 vedolizumab 300 mg intravenous 300 mg IV ONCE #1 ea 07/08/22 solution (Entyvio) pantoprazole 40 mg tablet,delayed 40 mg PO QAM #30 tabs 08/02/22 release gabapentin 300 mg capsule 600 mg (2 x 300 mg) PO BEDTIME 09/21/22 #180 caps colesevelam 625 mg tablet 3,125 mg (5 x 625 mg) PO .COMPLEX 10/09/22 #240 tabs ondansetron 4 mg disintegrating 4 mg PO Q8H PRN nausea and 10/09/22 tablet vomiting #90 tabs furosemide 40 mg tablet 40 mg PO DAILY #90 tabs 11/07/22 zinc acetate 50 mg (zinc) capsule 50 mg PO DAILY #90 caps 11/29/22 (Galzin) Allergies Allergy/AdvReac Type Severity Reaction Status Date / Time hydromorphone [From Dilaudid] Allergy Severe Hallucinati Verified 12/15/22 10:12 ons losartan Allergy Intermediate Facial Verified 12/15/22 10:12 Swelling Sulfa (Sulfonamide AdvReac Severe Rash Verified 12/15/22 10:12 Antibiotics) Review of Systems 2 Review of Systems: Constitutional: No Fever, + Chills, + Fatigue, + Malaise ENT/Mouth: No Ear Pain, No Nasal Congestion, No sore throat, No Rhinorrhea, No Swallowing Difficulty Eyes: No Eye Pain, No Swelling, No Redness, No Vision Changes Cardiovascular: No Chest Pain, No SOB, No Edema, No Palpitations Respiratory: No Cough, No Sputum, No Dyspnea Gastrointestinal: No Nausea, No Vomiting, No Diarrhea, No Constipation, No Abdominal pain, + abdominal distension Genitourinary: No Dysuria, No Urinary Frequency, No Hematuria, No Urinary Incontinence/retention, No Flank Pain Musculoskeletal: No joint pain, No Myalgias, No Joint Swelling Skin: No Skin Lesions, No rash Neuro: + Weakness, No Numbness, No Paresthesias, No Loss of Consciousness, + lightheaded, No Headache Yes all other systems are reviewed and are negative Constitutional: Constitutional: Reports as per HPI Neurologic: Denies Abnormal speech present [facility] Past Medical History Attestation statement: The following information was validated with the patient. Source: old records reviewed Medical History Ascites Anemia CHF (congestive heart failure) Pancytopenia Anxiety HTN (hypertension) Tremor Chronic diarrhea Primary biliary cholangitis Breast cancer Surgical History Transplant recipient Hx of colonoscopy Hx of esophagogastroduodenoscopy H/O: hysterectomy S/P hip replacement Liver transplant recipient Family History Family History Mother CAD (coronary artery disease) Sister Ovarian cancer Mental health disorder Social History Social History Household Members: Spouse Household Members Other:: , children Housing: House Do you presently have visiting nurse or other home services: No Alcohol intake: never Patient Tobacco Use Status: Never used Tobacco Smoked in Last 30 Days: No e-Cigarette/Vaping Use: Never Used Use of substances other than those prescribed or required for medical reasons: No Advance Directives: Yes Advance Directives Information Provided: Yes Advance Directives on File: No service: No Current occupational status: retired Cognitive needs: No Hearing needs: No Vision needs: Yes Physical Exam ED Vital Signs: Vital Signs - 24 hr 12/15/22 10:51 12/15/22 13:46 12/15/22 15:48 Temperature 97.7 F 98.4 F Pulse Rate 95 85 84 Respiratory Rate 16 17 Blood Pressure 154/94 H 140/93 H 169/90 H Pulse Oximetry 97 99 Oxygen Delivery Method Room Air Room Air 12/15/22 15:49 12/15/22 15:50 12/15/22 16:22 Temperature Pulse Rate 89 102 H 94 Respiratory Rate 20 Blood Pressure 136/89 118/77 142/91 H Pulse Oximetry Oxygen Delivery Method 12/15/22 16:25 12/15/22 16:30 12/15/22 16:35 Temperature Pulse Rate 92 86 85 Respiratory Rate 20 18 18 Blood Pressure 150/97 H 146/84 H 149/82 H Pulse Oximetry Oxygen Delivery Method BMI result Body Mass Index 24.2 Const General: cooperative, healthy appearing, no acute distress, alert and awake Orientation/consciousness: patient oriented x3 Limitations: no limitations HENMT Head: Yes normal to inspection and Yes atraumatic Ears: hearing grossly normal bilaterally General nose exam: Normal external nose present Face and sinus: Yes normal facial exam Throat: Yes posterior oropharynx normal and Yes uvula midline Eyes General: appearance normal, both eyes and all related structures Pupils: Equal, round and reactive pupils present EOM: EOMs intact bilaterally Neck Neck: Yes normal visual inspection and Yes no meningeal signs Resp Effort & Inspection: normal respiratory effort and no respiratory distress Auscultation: clear to auscultation bilaterally Cardio Rate: regular rate Heart sounds: S1 normal heart sound present and S2 normal heart sound present GI Inspection: Yes normal to inspection and Yes distended (+ascites) Palpation (GI): Soft to palpation, nontender, no guarding and not rigid Skin Rashes: no rashes Wounds: no wounds Neuro General: patient oriented x3, tone normal, moves all extremities, no meningeal signs, no focal motor deficits and CN's II-XI intact bilaterally Cranial nerves: Yes CN's II-XII intact bilaterally and Yes Equal, round and reactive pupils present Cognition (Neuro): normal cognition Speech: No Abnormal speech present Motor exam (neuro): 5/5 motor strength present throughout and no tremor noted Extrem General: Yes normal to inspection and Yes no pedal edema Course Course Course Narrative: This is a rapid medical exam: Additional HPI, ROS, PE not included below will be deferred to primary provider. Patient is a 67-year-old female with history of liver transplant approx 5 years ago presenting to the emergency department with months of shakiness, speech changes, difficulty with comprehension, balance issues, and falls. She states that Dr. Galloway wants her to be admitted. Most recent labs around 1 month ago at [facility]. Paracentesis every 2 weeks, last was last Sunday. Reports abdominal distention r/t ascites. Plan: labs, UA -1536-- chronic leukopenia. Chronic transaminitis from liver failure. -Ammonia WNL CT head/brain wo IV con IMPRESSION: 1. No evidence of acute intracranial hemorrhage. 2. There is a small region of encephalomalacia within the right parietal lobe that is new compared to 2021 but otherwise appears subacute to chronic in nature. 3. Moderate underlying microangiopathy and generalized cerebral volume loss. > ?subacute CVA -1616-- IR at bedside performing paracentesis >> will send fluid studies. Plan to admit for further management. Case discussed with hospitalist Medical Decision Making Medical Decision Making MDM Narrative: 67-year-old female with a past medical history of liver transplant currently on transplant list, anemia, CHF, pancytopenia, anxiety, hypertension, chronic diarrhea, ascites with bi-weekly paracentesis (last paracentesis 12/08) presenting to ED sent in from be GI office due to increased shakiness, confusion, frequent falls, & generalized fatigue /weakness worsening over the past month. On exam vital signs stable, NAD, A&O x3, abdominal distention/ ascites noted, abdomen is soft and nontender. Lungs CTA. Concern for metabolic encephalopathy vs progressive cirrhosis vs metabolic/infectious etiologies including electrolyte abnormalities. Low suspicion for SBP at this time with nontender abdomen. Plan: EKG, labs, UA, CXR, head CT, viral testing, therapeutic paracentesis, anticipate admission Please refer to course for remaining clinical decision making, interpretation of labs/imaging results, and discussions with consultants and/or family members. Differential Diagnosis Differential Diagnoses: The differential diagnosis associated with the presentation includes As above Admission/Observation Consideration of admission/observation: Escalation of care including admission/observation considered Consult Healthcare Provider Management of the patient was discussed with: Hospitalist Lab Data MDM Lab Attestation statement: I reviewed the patient's lab results. 12/15/22 11:15 12/15/22 11:15 Labs: Lab Results 12/15/22 12/15/22 Range/Units 11:15 14:31 WBC 4.4 L (4.8-10.8) X10*3/uL RBC 4.26 (4.20-5.50) X10*6/uL Hgb 12.6 (12.0-16.0) g/dl Hct 39.7 (37.0-47.0) % MCV 93.2 (80.0-98.0) fL MCH 29.6 (27.0-33.0) pg MCHC 31.7 (31.0-35.0) g/dl RDW 15.8 (11.0-16.0) % Plt Count 144 L (160-400) X10*3/uL MPV 9.9 (9.4-12.3) fL Immature Gran % (Auto) 0.5 H (0.0-0.4) % Neut % (Auto) 72.1 (45-73) % Lymph % (Auto) 12.2 L (20-40) % Hardy % (Auto) 11.1 H (2-11) % Eos % (Auto) 3.4 (0-4) % Baso % (Auto) 0.7 (0-2) % Lymph # (Auto) 0.5 L (1.2-4.9) X10*3/uL Hardy # (Auto) 0.5 (0.1-1.2) X10*3/uL Eos # (Auto) 0.2 (0.0-0.4) X10*3/uL Baso # (Auto) 0.0 (0.0-0.2) X10*3/uL Abs Immat Gran (auto) 0.02 (0.00-0.03) X10*3/uL Absolute Neuts (auto) 3.2 (2.0-8.3) x10*3/uL Absolute Nucleated RBC 0.000 (0.0-0.012) X10*3/uL Nucleated RBC % (auto) 0.0 (0.0-0.2) /100WBC PT 13.3 (11.1-13.3) SEC INR 1.1 (0.9-1.1) APTT 35.2 (26.0-36.4) SEC Sodium 141 (135-145) mmol/L Potassium 3.6 (3.3-5.1) mmol/L Chloride 108 (96-108) mmol/L Carbon Dioxide 26 (22-29) mmol/L Anion Gap 11 L (12-20) BUN 11 (9-16) mg/dL Creatinine 0.73 (0.5-1.4) mg/dL Estim Creat Clear Calc 55.5 Estimated GFR > 60 Random Glucose 97 (60-115) mg/dL Calcium 8.4 D (8.4-10.2) mg/dL Magnesium 1.8 (1.6-2.6) mg/dL Total Bilirubin 1.4 H (0.0-1.0) mg/dL Direct Bilirubin 0.9 H (0.0-0.5) mg/dL AST 36 H (5-31) U/L ALT 24 (0-31) U/L Alkaline Phosphatase 194 H (39-117) U/L Ammonia 29 (13-55) umol/L Total Protein 6.4 L (6.5-8.0) g/dL Albumin 3.1 L (3.5-5.0) g/dL Lipase 42 (8-78) U/L COVID-19 (LINDSEY) Negative (Negative) COVID-19 Clin Com See Note Independent Interpretation I performed an independent interpretation of an: EKG ( EKG normal sinus rhythm at a rate of 93. QRS 78. QTC 465. Nonspecific T-wave abnormality now present when compared to prior. No STEMI) Radiology Impression Discussion of test interpretation with radiology: I have reviewed the radiologist's reading. Independent Historian Clinical information obtained from an independent historian. History obtained from or confirmed by: EMS and Other (daughter) External Record Review External record reviewed: Inpatient record, Office record, Outpatient record, Prior outpatient labs, Prior outpatient radiology, Primary care record and Outside ED record Tests considered The following testing was considered but not selected: As above Chronic Conditions Patient?s care impacted by: Other ( liver transplant) Critical Care Time Critical Care Time Critical Care Time: Yes Total Critical Care Time: 45 Attestation: I have personally provided critical care time exclusive of time spent on separately billable procedures. Time includes review of lab data, radiology results, discussion with consultants, and monitoring for potential decompensation. Intervention performed as documented. Discharge Plan Discharge Clinical Impression: Confusion, Abdominal ascites, Frequent falls, Shakes, Encephalomalacia on imaging study Patient Disposition: Admitted As Inpatient
[2022-12-15 11:25] LABS: MANUAL DIFF FLAG NO
[2022-12-15 11:26] LABS: Basophils Percent Auto 0.7 % (0-2); Eosinophils Absolute Auto 0.2 X10*3/uL (0.0-0.4); Eosinophils Percent Auto 3.4 % (0-4); Hematocrit 39.7 % (37.0-47.0); Hemoglobin 12.6 g/dl (12.0-16.0); Imm Gran Abs Auto 0.02 X10*3/uL (0.00-0.03); Imm Gran Pct Auto 0.5 % (0.0-0.4); Lymphocytes Absolute Auto 0.5 X10*3/uL (1.2-4.9); Lymphocytes Percent Auto 12.2 % (20-40); Mean Corpuscular HGB Conc 31.7 g/dl (31.0-35.0); Mean Corpuscular Hemoglobin 29.6 pg (27.0-33.0); Mean Corpuscular Volume 93.2 fL (80.0-98.0); Mean Platelet Volume 9.9 fL (9.4-12.3); Monocytes Absolute Auto 0.5 X10*3/uL (0.1-1.2); Monocytes Percent Auto 11.1 % (2-11); Neutrophils Absolute Auto 3.2 x10*3/uL (2.0-8.3); Neutrophils Percent Auto 72.1 % (45-73); Platelet Count 144 X10*3/uL (160-400); Red Blood Count 4.26 X10*6/uL (4.20-5.50); Red Cell Distribution Width 15.8 % (11.0-16.0); White Blood Count 4.4 X10*3/uL (4.8-10.8)
[2022-12-15 11:38] LABS: Ammonia 29 umol/L (13-55)
[2022-12-15 11:47] LABS: Alanine Aminotransferase 24 U/L (0-31); Albumin Level 3.1 g/dL (3.5-5.0); Alkaline Phosphatase 194 U/L (39-117); Anion Gap 11 (12-20); Aspartate Amino Transferase 36 U/L (5-31); Bilirubin Direct 0.9 mg/dL (0.0-0.5); Bilirubin Total 1.4 mg/dL (0.0-1.0); Blood Urea Nitrogen 11 mg/dL (9-16); Calcium 8.4 mg/dL (8.4-10.2); Carbon Dioxide 26 mmol/L (22-29); Chloride 108 mmol/L (96-108); Creatinine Clr Calc Pharmacy 55.5; Estimated Glomerular Filt Rate > 60; Glucose Random 97 mg/dL (60-115); Potassium 3.6 mmol/L (3.3-5.1); Sodium 141 mmol/L (135-145); Total Protein 6.4 g/dL (6.5-8.0)
[2022-12-15 14:34] LABS: Lipase 42 U/L (8-78); Magnesium 1.8 mg/dL (1.6-2.6)
--- NOTE | 2022-12-15 14:34 | PC.NURSE ---
iv established, labs drawn and sent. pt resting comfortably in room watching tv, call jarquin within reach
[2022-12-15 14:56] LABS: INTERNATIONAL NORM RATIO 1.1 (0.9-1.1); Prothrombin Time 13.3 SEC (11.1-13.3)
[2022-12-15 14:57] LABS: COVID-19 Test Negative (Negative); IDNOW Serial# 08D9AD1C
[2022-12-15 14:59] LABS: Partial Thromboplastin Time 35.2 SEC (26.0-36.4)
--- NOTE | 2022-12-15 16:05 | PC.NURSE ---
pt is alert and oriented, skin pwd, respirations even and unlabored, pt presents with a distended but soft abd, denies pain/n/v/. pt reports she gets paracenthesis every two weeks, normal sinus on the monitor and vs stable
--- NOTE | 2022-12-15 16:21 | PC.NURSE ---
at bedside with IR to perform paracenthesis ns on the monitor
--- NOTE | 2022-12-15 16:46 | PC.NURSE ---
pt tolerated the paracentesis procedure well, had 4,200ml of fluid taken of, vs stable
--- NOTE | 2022-12-15 16:54 | P.HPHOSP_ITS ---
History of Present Illness Date of Service: 12/15/22 Chief Complaint: Confusion 67-year-old female with a past medical history of primary biliary cholangitis, status post liver transplant in 2016 and on liver transplant list again for recurrent ascietes, HTN, anxiety, history of breast cancer status post lumpectomy, anemia, chronic diastolic CHF, pancytopenia, anxiety, hypertension, chronic diarrhea, recurrent ascites with bi-weekly paracentesis (last paracentesis 12/08) was seen by Dr. Galloway in follow up in GI clinic and with increased shakiness, ED note stays that she is confused, but she lucid (alert oriented x 3), generalized weakness with associated falls but no bodily injury. Head CT show no acute finding, ammonia within normal, no fever, she is getting paracentesis Review of Systems 2 Review of Systems: Gen: no fever Resp: no sob, no cough CV: no chest, no MONTOYA, no leg edema GI: No n/v, no abd pain Neuro: + confusion Yes all other systems are reviewed and are negative FOR[facility]LY [facility], [facility] Medical History Ascites Anemia CHF (congestive heart failure) Pancytopenia Anxiety HTN (hypertension) Tremor Chronic diarrhea Primary biliary cholangitis Breast cancer Family History Mother CAD (coronary artery disease) Sister Ovarian cancer Mental health disorder Surgical History Transplant recipient Hx of colonoscopy Hx of esophagogastroduodenoscopy H/O: hysterectomy S/P hip replacement Liver transplant recipient Social History Household Members: Spouse Household Members Other:: , children Housing: House Do you presently have visiting nurse or other home services: No Alcohol intake: never Patient Tobacco Use Status: Never used Tobacco Smoked in Last 30 Days: No e-Cigarette/Vaping Use: Never Used Use of substances other than those prescribed or required for medical reasons: No Advance Directives: Yes Advance Directives Information Provided: Yes Advance Directives on File: No Advance Directives Date on File: 12/15/22 service: No Current occupational status: retired Cognitive needs: No Hearing needs: No Vision needs: Yes Meds Allergies Allergy/AdvReac Type Severity Reaction Status Date / Time hydromorphone [From Dilaudid] Allergy Severe Hallucinati Verified 12/15/22 10:12 ons losartan Allergy Intermediate Facial Verified 12/15/22 10:12 Swelling Sulfa (Sulfonamide AdvReac Severe Rash Verified 12/15/22 10:12 Antibiotics) Home Medications Medication Instructions Recorded Confirmed Last Taken Type ursodiol 500 mg tablet 1 tab PO BID 11/02/21 12/15/22 11/21/22 History cholecalciferol (vitamin D3) 25 25 mcg PO DAILY 04/25/22 12/15/22 11/21/22 History mcg (1,000 unit) capsule (Vitamin D3) tacrolimus 0.5 mg capsule, 0.5 mg PO Q12H 08/22/22 12/15/22 11/21/22 History immediate-release alprazolam 1 mg tablet 1 mg PO DAILY PRN Anxiety 09/04/22 12/15/22 Unknown History pyridoxine (vitamin B6) 100 mg 100 mg PO BID 09/04/22 12/15/22 11/21/22 History tablet vitamin A 10,000 unit tablet 10,000 unit PO DAILY 09/04/22 12/15/22 Unknown History magnesium glycinate 100 mg PO DAILY 11/07/22 12/15/22 11/21/22 History bupropion HCl 75 mg tablet 300 mg PO DAILY 12/15/22 12/15/22 Unknown History colesevelam 625 mg tablet 1,875 mg PO BID 12/15/22 12/15/22 Unknown History Physical Exam 2 Vital Signs and Narrative: Vital Signs: Last Vital Signs Temp 98.4 F 12/15/22 13:46 Pulse 89 12/15/22 16:50 Resp 18 12/15/22 16:50 BP 154/81 H 12/15/22 16:50 Pulse Ox 99 12/15/22 13:46 O2 Del Method Room Air 12/15/22 13:46 BMI result Body Mass Index 24.2 Const: Other: Constitutional: Alert, in no distress, Mental Status: Oriented to person, place and time. Eyes: Pupils are equal, round and reactive to light. Ear, Nose and Throat: Oropharynx clear, mucous membranes moist. Ears and nose without eformities. Respiratory: Clear to auscultation. No wheezing, rales or rhonchi. Cardiovascular: S1 S2 regular. No murmurs, rubs or gallops. Gastrointestinal: Abdomen soft, non-tender, non-distended. Normal bowel sounds.? Neurologic: Cranial nerves II-XII grossly intact. No focal neurological deficits. Moves all extremities spontaneously.? Skin: No rashes or lesions.? Musculoskeletal: No cyanosis or clubbing. Psychiatric: Normal mood and affect? Results Labs 12/15/22 11:15 12/15/22 11:15 Labs: Laboratory Results - last 24 hr 12/15/22 12/15/22 11:15 14:31 MCV 93.2 MCH 29.6 MCHC 31.7 RDW 15.8 Plt Count 144 L MPV 9.9 Immature Gran % (Auto) 0.5 H Neut % (Auto) 72.1 Lymph % (Auto) 12.2 L [place] % (Auto) 11.1 H Eos % (Auto) 3.4 Baso % (Auto) 0.7 Lymph # (Auto) 0.5 L [place] # (Auto) 0.5 Eos # (Auto) 0.2 Baso # (Auto) 0.0 Abs Immat Gran (auto) 0.02 Absolute Neuts (auto) 3.2 Absolute Nucleated RBC 0.000 Nucleated RBC % (auto) 0.0 PT 13.3 INR 1.1 APTT 35.2 Anion Gap 11 L Estim Creat Clear Calc 55.5 Estimated GFR > 60 Random Glucose 97 Calcium 8.4 D Magnesium 1.8 Total Bilirubin 1.4 H Direct Bilirubin 0.9 H AST 36 H ALT 24 Alkaline Phosphatase 194 H Ammonia 29 Total Protein 6.4 L Albumin 3.1 L Lipase 42 COVID-19 ([facility]INDSEY) Negative COVID-19 Clin Com See Note Imaging Radiologist's Impressions: Impressions Head CT 12/15/22 14:59 IMPRESSION: 1. No evidence of acute intracranial hemorrhage. 2. There is a small region of encephalomalacia within the right parietal lobe that is new compared to 2021 but otherwise appears subacute to chronic in nature. 3. Moderate underlying microangiopathy and generalized cerebral volume loss. Assessment and Plan (1) Encephalomalacia on imaging study: Status: Acute Plan #recurent ascietes s/p paracentesis in ED with removal of at least 3L, no SBP #Patient is not confused to me and normal ammonia so no encephalopathy, CT show encephalomalacia that is old, neuro consult vs MRI #Gen weakness fall, PT eval # liver transplant - continue tacrolimus # mood disorder - escitalopram # VTE ppx: SCDs # dispo: anticipate home in next 1-2d In my clinical judgment, the patient requires continued inpatient hospitalization for the following reasons: IV ABX Time Spent With Patient Time: Total time managing care of this patient today ____ minutes. Quality Stroke Does the patient have a stroke diagnosis?: No VTE Prior VTE?: No VTE Risk Level:: Medical - moderate - high VTE Device Contraindication: Treatment Not Indicated VTE Drug Contraindication: N/A - Med Ordered
[2022-12-15] MEDS: Lidocaine HCl 1 % MPF 5 ML VIAL SUBCUT (16:57)
[2022-12-15 17:40] LABS: MN% 82.1 %; PMN% 17.9 %; RBC Peritoneal Fluid 0.002 X10*6/uL; WBC Peritoneal Fluid 0.256 X10*3/uL
--- NOTE | 2022-12-15 17:49 | PHA.MEDREC ---
Pharmacy Consult ? Medication Reconciliation Pharmacy has completed the medication reconciliation. sPOKE TO PT AND DAUGHTER. PT IS NO LONGER ON CITALOPRAM AND NOW ON BUPROPION DUE TO BEING ON A DONOT LIST. PT TAKES WELCHOL 2 BID DIFFERENT THAN PRESCRIBED LA
--- NOTE | 2022-12-15 18:26 | PC.NURSE ---
report given to director of social media marketing
--- NOTE | 2022-12-15 18:37 | MHC.EDTECH ---
Patient brought in dinner
[2022-12-15 19:43] LABS: Lymphocyte Peritoneal Fl 25 %; Monocytes Peritoneal Fl 57 %; Neutrophils Peritoneal Fluid 18 %
[2022-12-15 19:44] LABS: BF Shift QC OK YES; Man Diluent Bkgrd OK YES
[2022-12-15] MEDS: 0.9 % Sodium Chloride Flush 3 ML SYRINGE IVFLUSH (20:07)
[2022-12-16] VITALS: BP 115/69; PULSE 85; RESP 16; TEMP 36.4; O2SAT 98
[2022-12-16 03:21] VITALS: BP 129/73; PULSE 83; RESP 16; TEMP 36.5; O2SAT 95
--- NOTE | 2022-12-16 08:37 | P.PNIM_ITS ---
Subjective Subjective Date of Service: 12/16/22 Interval History: no new issues, not confused, feels less weak Physical Exam 2 Vital Signs: Vital Signs: Last Vital Signs Temp 97.7 F 12/16/22 03:21 Pulse 83 12/16/22 03:21 Resp 16 12/16/22 03:21 BP 129/73 12/16/22 03:21 Pulse Ox 95 12/16/22 03:21 O2 Del Method Room Air 12/16/22 03:21 BMI result Body Mass Index 24.0 Const: Other: General: AO X 3, no acute distress Resp: CTA bilateral CVS: S1,S2,RRR GI: +BS, NT, no distention Skin: No rash Neuro: motor grossly intact Psych: appropriate affect Objective Data Active Medications Alprazolam (Alprazolam 0.5 Mg Tablet) 1 mg PO DAILY PRN PRN Reason: Anxiety Bupropion HCl (Bupropion Hcl 100 Mg Tablet) 300 mg PO DAILY [facility] Cholestyramine Resin (Cholestyramine (With Sugar) 4 Gm Powd.Pack) 4 gm PO TID [facility] Cyanocobalamin (Cyanocobalamin (Vitamin B-12) 1,000 Mcg Tablet) 1,000 mcg PO DAILY [facility] Furosemide (Furosemide 40 Mg Tablet) 40 mg PO DAILY [facility]ERMAN; Protocol Gabapentin (Gabapentin 300 Mg Capsule) 600 mg PO BEDTIME [facility] Melatonin (Melatonin 3 Mg Tablet) 3 mg PO BEDTIME PRN PRN Reason: Insomnia Non-Formulary Medication (Ursodiol) 1 tab PO BID [facility] Omeprazole (Omeprazole 20 Mg Capsule.Dr) 20 mg PO DAILY@0630 [facility] Ondansetron HCl (Ondansetron Odt 4 Mg Tab.Rapdis) 4 mg TRANSLINGU Q8H PRN PRN Reason: nausea and vomiting Pyridoxine HCl (Pyridoxine Hcl (Vitamin B6) 50 Mg Tablet) 100 mg PO BID [facility] Sodium Chloride (0.9 % Sodium Chloride Flush 3 Ml Syringe) 3 ml IVFLUSH QSHIFT [facility] Last Admin: 12/15/22 20:07 Dose: 3 ml Documented By: AYAZ Tacrolimus (Tacrolimus 0.5 Mg Capsule) 0.5 mg PO BID [facility] Vitamin D (Cholecalciferol (Vitamin D3) 25 Mcg Tablet) 25 mcg PO DAILY [facility] Zinc Sulfate (Zinc Sulfate 220 Mg Capsule) 220 mg PO DAILY [facility] Labs 12/15/22 11:15 12/15/22 11:15 Labs: Laboratory Results - last 24 hr 12/15/22 12/15/22 12/15/22 11:15 14:31 17:15 MCV 93.2 MCH 29.6 MCHC 31.7 RDW 15.8 Plt Count 144 L MPV 9.9 Immature Gran % (Auto) 0.5 H Neut % (Auto) 72.1 Lymph % (Auto) 12.2 L [place] % (Auto) 11.1 H Eos % (Auto) 3.4 Baso % (Auto) 0.7 Lymph # (Auto) 0.5 L [place] # (Auto) 0.5 Eos # (Auto) 0.2 Baso # (Auto) 0.0 Abs Immat Gran (auto) 0.02 Absolute Neuts (auto) 3.2 Absolute Nucleated RBC 0.000 Nucleated RBC % (auto) 0.0 PT 13.3 INR 1.1 APTT 35.2 Anion Gap 11 L Estim Creat Clear Calc 55.5 Estimated GFR > 60 Random Glucose 97 Calcium 8.4 D Magnesium 1.8 Total Bilirubin 1.4 H Direct Bilirubin 0.9 H AST 36 H ALT 24 Alkaline Phosphatase 194 H Ammonia 29 Total Protein 6.4 L Albumin 3.1 L Lipase 42 Peritoneal WBC 0.256 Peritoneal RBC 0.002 Periton Neutrophils 18 Periton Lymphocytes 25 Peritoneal Monocytes 57 COVID-19 ([facility]) Negative COVID-19 Clin Com See Note Assessment and Plan (1) Encephalomalacia on imaging study: Status: Acute Plan #recurent ascietes s/p paracentesis in ED with removal of at least 3L, no SBP #Patient is not confused to me and normal ammonia so no encephalopathy, CT show encephalomalacia that is old, neuro to determine if MRI is warrantd #Gen weakness fall, PT eval # liver transplant - continue tacrolimus # mood disorder - escitalopram obs pt Time Spent With Patient Time: Total time managing care of this patient today ____ minutes. Quality Stroke Does the patient have a stroke diagnosis?: No VTE Prior VTE?: No VTE Risk Level:: Medical - moderate - high VTE Device Contraindication: Treatment Not Indicated VTE Drug Contraindication: N/A - Med Ordered
[2022-12-16] MEDS: Cholestyramine (With Sugar) 4 GM POWD.PACK PO (08:53)
[2022-12-16] MEDS: Cyanocobalamin (Vitamin B-12) 1,000 MCG TABLET 1000 MCG PO (08:54)
[2022-12-16] MEDS: Pyridoxine HCl (Vitamin B6) 50 MG TABLET 100 MG PO (08:54)
[2022-12-16] MEDS: buPROPion HCL 100 MG TABLET 300 MG PO (08:54)
[2022-12-16] MEDS: Furosemide 40 MG TABLET PO (08:54)
[2022-12-16] MEDS: Cholecalciferol (Vitamin D3) 25 MCG TABLET PO (08:54)
[2022-12-16] MEDS: Zinc Sulfate 220 MG CAPSULE PO (08:54)
[2022-12-16] MEDS: 0.9 % Sodium Chloride Flush 3 ML SYRINGE IVFLUSH (08:57)
[2022-12-16 11:03] VITALS: BP 136/78; PULSE 90; RESP 16; TEMP 36.8; O2SAT 95
[2022-12-16 11:56] VITALS: BP 136/78; PULSE 90; O2SAT 95
[2022-12-16] MEDS: Tacrolimus 0.5 MG CAPSULE PO (12:02)
--- NOTE | 2022-12-16 12:54 | P.DS_ITS ---
DS: Providers Provider Date of Service: 12/16/22 Date of admission: 12/15/22 17:31 Primary care physician: Taylor Zapata MD Consults: 12/16/22 07:53 Consult to Neurology Routine Consulting Provider: [facility] Reason for consultation: falls, encephalomalacia on ct DS: Diagnosis Discharge Diagnosis (1) Encephalomalacia on imaging study: Status: Acute DS: Summary Hospital Course Hospital Course: Chief Complaint: Confusion 67-year-old female with a past medical history of primary biliary cholangitis, status post liver transplant in 2016 and on liver transplant list again for recurrent ascietes, HTN, anxiety, history of breast cancer status post lumpectomy, anemia, chronic diastolic CHF, pancytopenia, anxiety, hypertension, chronic diarrhea, recurrent ascites with bi-weekly paracentesis (last paracentesis 12/08) was seen by Dr. Galloway in follow up in GI clinic and with increased shakiness, ED note stays that she is confused, but she lucid (alert oriented x 3), generalized weakness with associated falls but no bodily injury. Head CT show no acute finding, ammonia within normal, no fever, she is getting paracentesis Hospital course: Patient had paracentesisis in ED with fluid analysis not consistent with SBP, patient was never confused during my evaluation and remained lucid throughout hospitalization. Encephalomalacia seen on CT is old and unlikely cause of her frequent falls which could be related to neuropathy. ammonia level was normal. PT saw her and recommend returning home with family support and use of W/W, additionally didn't want to go to rehab. Will arrange for MRI on outpatient basis given that her presentation is not acute, this was discussed neurologist over the phone. Time Spent with Patient Time attestation: Total time managing care of this patient today ____ minutes. Discharge coordination time: Greater than 30 minutes Quality: Safe Use of Opioids Does Pt have an Active Cancer Diagnosis on the Problem List?: No Quality: Stroke Does the patient have a stroke diagnosis?: No Physical Exam Vital Signs: Vital Signs: Last Vital Signs Temp 98.2 F 12/16/22 11:03 Pulse 90 12/16/22 11:56 Resp 16 12/16/22 11:03 BP 136/78 12/16/22 11:56 Pulse Ox 95 12/16/22 11:56 O2 Del Method Room Air 12/16/22 11:03 BMI result Body Mass Index 24.0 DS: Data Data Completed and Pending Completed studies during hospitalization [Text1]: Procedures Drainage of Peritoneal Cavity, Percutaneous Approach (03/30/22) Drainage of Right Pleural Cavity, Percutaneous Approach (03/30/22) Labs on day of discharge: Laboratory Results - last 24 hr 12/15/22 12/15/22 12/15/22 11:15 14:31 17:15 PT 13.3 INR 1.1 APTT 35.2 Magnesium 1.8 Lipase 42 Peritoneal WBC 0.256 Peritoneal RBC 0.002 Periton Neutrophils 18 Periton Lymphocytes 25 Peritoneal Monocytes 57 Tacrolimus 7.0 COVID-19 ([facility]Y) Negative COVID-19 Clin Com See Note Preliminary micro results at discharge 12/15/22 17:15 Routine Culture - Preliminary Abdominal Fluid No growth to date. Anaerobic Culture - Preliminary No growth to date. Discharge Plan Discharge Anticipated Discharge Date/Time: 12/16/22 12:29 Patient Disposition: Home, Self-Care Discharge Diagnosis: Ascietes, encephalomalacia Referrals: Taylor Zapata MD [Primary Care Provider] - 1 Week Discharge Medications: New (DME) Ultra-Light Rollator Misc See Rx Instructions .Route Qty: 1 0RF Rx Instructions: As directed Continued Entyvio 300 mg recon soln 300 mg IV ONCE Qty: 1 0RF Rx Instructions: administer over 30 mins pantoprazole 40 mg tablet,delayed release (DR/EC) 40 mg PO QAM Qty: 30 11RF furosemide 40 mg tablet 40 mg PO DAILY Qty: 90 3RF Galzin 50 mg (zinc) capsule 50 mg PO DAILY Qty: 90 3RF cholecalciferol (vitamin D3) [Vitamin D3] 25 mcg (1,000 unit) Capsule 25 mcg PO DAILY cyanocobalamin (vitamin B-12) [Vitamin B-12] 1,000 mcg Tablet 1,000 mcg PO DAILY Qty: 90 3RF ursodiol 500 mg tablet 1 tab PO BID pyridoxine (vitamin B6) 100 mg tablet 100 mg PO BID vitamin A 10,000 unit Tablet 10,000 unit PO DAILY alprazolam 1 mg tablet 1 mg PO DAILY PRN (Reason: Anxiety) Rx Instructions: PRIOR TO PARACENTESIS magnesium glycinate 100 mg magnesium Capsule 100 mg PO DAILY bupropion HCl 75 mg tablet 300 mg PO DAILY colesevelam 625 mg tablet 1,875 mg PO BID gabapentin 300 mg capsule 600 mg PO BEDTIME Qty: 180 2RF tacrolimus 0.5 mg capsule 0.5 mg PO Q12H ondansetron 4 mg tablet,disintegrating 4 mg PO Q8H PRN (Reason: nausea and vomiting) Qty: 90 1RF Discharge Orders: Discharge Order (Routine); Ordered 12/16/22 Ordered By: Douglas Marsh Diet: Advance to usual diet Activity on Discharge: As tolerated Stand Alone Forms: Patient Portal Discharge page Other Ambulatory Orders: MR head/brain wo con (Routine) Timeframe: 1 Week Facility: [facility] - Location: MRI Ordered By: Douglas Dunn Care Plan Goals: fall prevention Health Concerns: encephalomalacia on ct Plan of Treatment: continue your medications as usal mri of the head as outpatient Assessment: as above
--- NOTE | 2022-12-16 13:04 | MHC.CM.PN ---
PT REPORTS SHE LIVES WITH HER AND IS INDEPENDENT WITH CARE SHE HAS NO DME AND NO HOME SERVICES PT REPORTS SHE HAS A HCP, COPY REQUESTED PCP: GABBIE BRYSON AN [facility], [place] RIGHTS DELIVERED PT WILL DC HOME TODAY WITH NO SERVICES VIA FAMILY TRANSPORT
[2022-12-19 07:24] LABS: Glucose Peritoneal Fluid 108 MG/DL
== END 2022-12-16 13:59 | disposition home or self-care (01) ==
LOC: HO.ED 16:18 → HO.EDOVER 17:40 → HO.S3 18:09
PROVIDERS: Physician Assistant; Admitting Provider Internal Medicine; Emergency Provider Emergency Medicine Emergency Medical Services; PCP Internal Medicine; Visit Provider Internal Medicine
DX: G93.89 Other specified disorders of brain (principal); R29.6 Repeated falls; R18.8 Other ascites; R41.82 Altered mental status, unspecified; I11.0 Hypertensive heart disease with heart failure; I50.9 Heart failure, unspecified; Z20.822 Contact with and (suspected) exposure to COVID-19; R94.31 Abnormal electrocardiogram [ECG] [EKG]; Z79.899 Other long term (current) drug therapy; Z94.4 Liver transplant status
CPT/HCPCS: 36415; 49083; 70450; 80048; 80076; 80197; 82140; 82945; 83690; 83735; 85025; 85610; 85730; 87070; 87073; 87205; 87635; 89051; 93005; 97161; 99212; 99221; 99285

== ENCOUNTER → 2022-12-15 14:11 | Outpatient (BNV) | payer MEDICARE, OTHER, SELFPAY | PROVIDERS: Admitting Provider Internal Medicine; Emergency Provider Emergency Medicine Emergency Medical Services; PCP Internal Medicine; Visit Provider Radiology Diagnostic Radiology | DX: R18.8 Other ascites (principal) | CPT/HCPCS: 49083 ==

== ENCOUNTER → 2022-12-15 17:31 | Outpatient (BNV) | payer MEDICARE, OTHER, SELFPAY | PROVIDERS: Admitting Provider Internal Medicine; Emergency Provider Emergency Medicine Emergency Medical Services; PCP Internal Medicine; Visit Provider Internal Medicine | DX: G93.89 Other specified disorders of brain (principal) | CPT/HCPCS: 99222; 99232; 99239 ==

== ENCOUNTER 2022-12-19 10:27 | Outpatient (AMB) | payer MEDICARE, OTHER, SELFPAY ==
--- NOTE | 2022-12-19 10:29 | A.OFFPC_ITS ---
Vital Signs 12/19/22 10:30 Height 4 ft 11 in Weight 118 lb BMI 23.8 BP 118/76 Blood Pressure Location Lt brachial Position Sitting Pulse 112 H Pulse Source Pulse Oximeter Pulse Oximetry (%) 99 Oxygen Delivery Method Room Air Intake Visit Reasons: TCM Intake Note: Pt is here today for TCM visit. Allergies hydromorphone [From Dilaudid] Allergy (Severe, Verified 12/19/22 10:32) Hallucinations losartan Allergy (Intermediate, Verified 12/19/22 10:32) Facial Swelling Sulfa (Sulfonamide Antibiotics) Adverse Reaction (Severe, Verified 12/19/22 10:32) Rash Tobacco use date assessed: 12/19/22 HPI TCM HPI Details Pt presents for f/u [facility] hospitalization for worsening ascites s/p paracentesis. Pt f/u at [facility] for possible liver transplant. Pt c/o lightheadness and dizziness and will have brain MRI ordered by neurology. Pt denies any weakness/numbeness in extremities, diplopia, PIZANO. TCM TCM Information Date of Discharge 12/16/22 Discharged From [facility] Interactive Contact Date (Reference documentation from this date) 12/18/22 [facility] Medical History Ascites Anemia CHF (congestive heart failure) Pancytopenia Anxiety HTN (hypertension) Tremor Chronic diarrhea Primary biliary cholangitis Breast cancer Surgical History Transplant recipient Hx of colonoscopy Hx of esophagogastroduodenoscopy H/O: hysterectomy S/P hip replacement Liver transplant recipient Family History Mother CAD (coronary artery disease) Sister Ovarian cancer Mental health disorder Social History Household Members: Spouse Household Members Other:: , children Housing: House Do you presently have visiting nurse or other home services: No Alcohol intake: never Patient Tobacco Use Status: Never used Tobacco e-Cigarette/Vaping Use: Never Used Advance Directives Date on File: 12/15/22 service: No Current occupational status: retired Cognitive needs: No Hearing needs: No Vision needs: Yes Questionnaire Thrive Questionnaire Date Thrive assessed: 09/16/23 VICENTA-7 AMB Questionnaire VICENTA-7 Date VICENTA - 7 assessed: 11/09/21 Source: Developed by DrsEssence Dillon, Shobha Casas, Armando Gaspar and colleagues, with an educational aleah from [employer]. Review of Systems Const All systems reviewed & are unremarkable except as noted in HPI and below Reports no additional complaints Eyes Reports no additional complaints ENT Reports no additional complaints Card Reports no additional complaints Resp Reports no additional complaints GI Reports no additional complaints Reports no additional complaints Physical exam (Primary Care) Vital Signs: Last Vital Signs Pulse 112 H 12/19/22 10:30 BP 118/76 12/19/22 10:30 Pulse Ox 99 12/19/22 10:30 Oxygen Delivery Method Room Air 12/19/22 10:30 BMI result Body Mass Index 23.8 Tobacco/Smoking Status: Tobacco use Status Tobacco use date assessed 12/19/22 12/19/22 10:36 Patient Tobacco Use Status Never used Tobacco 12/19/22 10:36 e-Cigarette/Vaping Use Never Used 12/19/22 10:30 Thrive Assessment: Date of Thrive Assessment Date Thrive assessed 12/16/22 12/19/22 10:30 Const General: no acute distress Eyes General: appearance normal, both eyes and all related structures Neck Neck: Yes supple Resp Effort & Inspection: normal respiratory effort Auscultation: clear to auscultation bilaterally Cardio Rhythm: regular rhythm Heart sounds: S1 normal heart sound present and S2 normal heart sound present GI Other: Dense ascites, nontender Assessment and Plan Assessment & Plan (1) Abdominal ascites: Comment: Due to liver failure, status post liver transplant failure for primary biliary choleangitis Code(s): R18.8 - Other ascites Plan: Follow-up with the GI and liver transplant team at [facility] (2) Encephalomalacia on imaging study: Code(s): G93.89 - Other specified disorders of brain Plan: Follow-up with neurology Coding Level of Care Code Est Pt Level 4 (22798) Diagnoses Abdominal ascites R18.8 Encephalomalacia on imaging study G93.89
[2022-12-19 10:30] VITALS: BP 118/76; PULSE 112; O2SAT 99; BMI 23.8
== END 2022-12-19 11:36 | disposition home or self-care (01) ==
PROVIDERS: PCP Internal Medicine; Visit Provider Internal Medicine
DX: R18.8 Other ascites (principal); G93.89 Other specified disorders of brain
CPT/HCPCS: 99214

== ENCOUNTER 2022-12-22 11:45 | Day surgery (SDC) | payer MEDICARE, OTHER, SELFPAY ==
[2022-12-22] VITALS (8 sets, daily range): BP systolic 120–151; BP diastolic 58–93; PULSE 94–101; RESP 14–20; TEMP 36.1–36.4; O2SAT 97–100; BMI 23.2
--- NOTE | ~2022-12-22 | US_ITS ---
EXAMINATION: US ULTRASOUND-GUIDED PARACENTESIS. CLINICAL INDICATION: Ascites. COMPARISON: Ultrasound-guided paracentesis 12/15/2022. TECHNIQUE: Following explaining ultrasound-guided paracentesis procedure, benefits and risks, informed consent was obtained. Patient was placed supine on ultrasound table and preliminary ultrasound imaging was obtained through the abdomen. Images were obtained for documentation. An optimal site was selected along the left lower quadrant and marked. The marked site was cleaned and draped in usual sterile manner. 1% lidocaine was injected at puncture site. Through a small skin incision a 5 [employer] catheter was advanced into the peritoneal space. After observing fluid return, stylet was withdrawn and catheter connected to vacuum bottle via connecting cannula. After obtaining all fluid and observing no more fluid return, catheter was withdrawn and complete hemostasis achieved at puncture site. Sterile dressing applied postprocedure. Patient tolerated procedure extremely well. FINDINGS: On limited ultrasound imaging of left abdomen, there is a moderate amount of fluid seen in the abdomen. Approximately 4.1 L of clear, gia-colored fluid was drained from the left lower quadrant. None of this fluid was sent to lab. US/US paracentesis abd w/image IMPRESSION: Successful ultrasound-guided therapeutic paracentesis performed without immediate complications.
[2022-12-22] MEDS: Lidocaine HCl 1 % MPF 5 ML VIAL SUBCUT (14:17)
== END 2022-12-22 15:58 | disposition home or self-care (01) ==
PROVIDERS: Radiology Diagnostic Radiology; PCP Internal Medicine; Visit Provider Internal Medicine Gastroenterology
DX: R18.8 Other ascites (principal); K74.3 Primary biliary cirrhosis; Z94.4 Liver transplant status; D61.818 Other pancytopenia; I11.0 Hypertensive heart disease with heart failure; I50.9 Heart failure, unspecified; K50.10 Crohn's disease of large intestine without complications; Z85.3 Personal history of malignant neoplasm of breast; R25.1 Tremor, unspecified; Z88.8 Allergy status to other drugs, medicaments and biological substances; Z88.2 Allergy status to sulfonamides
CPT/HCPCS: 49083

== ENCOUNTER → 2022-12-22 13:33 | Outpatient (BNV) | payer MEDICARE, OTHER, SELFPAY | PROVIDERS: PCP Internal Medicine; Visit Provider Radiology Diagnostic Radiology | DX: R18.8 Other ascites (principal); K76.9 Liver disease, unspecified | CPT/HCPCS: 49083 ==

== ENCOUNTER 2022-12-25 08:57 | Emergency (ER) | payer MEDICARE, OTHER, SELFPAY ==
--- NOTE | ~2022-12-25 | XR_ITS ---
EXAMINATION: XR FOOT, RIGHT CLINICAL INFORMATION: Right anterior foot injury COMPARISON: None available. TECHNIQUE: AP, lateral, and oblique views of the right foot. FINDINGS: The bones are diffusely osteopenic. There is dorsal soft tissue swelling. There is a mildly displaced angulated comminuted fracture of the distal shaft of the fourth metatarsal. There is also a nondisplaced fracture of the proximal fifth metatarsal. There is mild degenerative change of the first metatarsophalangeal joint. Moderate sized posterior plantar calcaneal spur is seen. Small Achilles enthesophyte. Arterial vascular calcification is noted within the distal leg and proximal foot. XR/XR foot RT 2V IMPRESSION: Fractures of the distal shaft of the fourth metatarsal and proximal fifth metatarsal.
[2022-12-25 09:41] VITALS: BP 137/83; PULSE 99; RESP 17; TEMP 36.9; O2SAT 98; BMI 24.2
--- NOTE | 2022-12-25 10:55 | ED_ITS ---
HPI - General Adult General Chief complaint: Extremity Injury, Lower Stated complaint: r foot inj Time Seen by Provider: 12/25/22 10:35 Source: patient Mode of arrival: ambulatory Limitations: no limitations History of Present Illness HPI narrative: 67-year-old female presents to ED for right foot pain. Patient states while trying to get off the couch she stepped onto her right foot hard and turning felt pain immediately. Patient did not fall to the ground. Patient states since then having trouble putting weight on foot. Patient denies any other trauma. Related Data Home Medications Medication Instructions Recorded Confirmed ursodiol 500 mg tablet 1 tab PO BID 11/02/21 12/15/22 cholecalciferol (vitamin D3) 25 25 mcg PO DAILY 04/25/22 12/15/22 mcg (1,000 unit) capsule (Vitamin D3) tacrolimus 0.5 mg capsule, 0.5 mg PO Q12H 08/22/22 12/15/22 immediate-release alprazolam 1 mg tablet 1 mg PO DAILY PRN Anxiety 09/04/22 12/15/22 pyridoxine (vitamin B6) 100 mg 100 mg PO BID 09/04/22 12/15/22 tablet vitamin A 10,000 unit tablet 10,000 unit PO DAILY 09/04/22 12/15/22 magnesium glycinate 100 mg PO DAILY 11/07/22 12/15/22 bupropion HCl 75 mg tablet 300 mg PO DAILY 12/15/22 12/15/22 colesevelam 625 mg tablet 1,875 mg PO BID 12/15/22 12/15/22 Previous Rx's Medication Instructions Recorded cyanocobalamin (vitamin B-12) 1,000 mcg PO DAILY #90 tabs 04/25/22 1,000 mcg tablet (Vitamin B-12) vedolizumab 300 mg intravenous 300 mg IV ONCE #1 ea 07/08/22 solution (Entyvio) pantoprazole 40 mg tablet,delayed 40 mg PO QAM #30 tabs 08/02/22 release gabapentin 300 mg capsule 600 mg (2 x 300 mg) PO BEDTIME 09/21/22 #180 caps ondansetron 4 mg disintegrating 4 mg PO Q8H PRN nausea and 10/09/22 tablet vomiting #90 tabs furosemide 40 mg tablet 40 mg PO DAILY #90 tabs 08/08/23 zinc acetate 50 mg (zinc) capsule 50 mg PO DAILY #90 caps 11/29/22 (Galzin) walker (Ultra-Light Rollator misc) #1 ea 12/16/22 oxycodone 5 mg capsule 5 mg PO Q8H PRN pain 3 days #9 caps 12/25/22 Allergies Allergy/AdvReac Type Severity Reaction Status Date / Time hydromorphone [From Dilaudid] Allergy Severe Hallucinati Verified 12/19/22 10:32 ons losartan Allergy Intermediate Facial Verified 12/19/22 10:32 Swelling Sulfa (Sulfonamide AdvReac Severe Rash Verified 12/19/22 10:32 Antibiotics) Review of Systems 2 Review of Systems: Right foot pain Yes all other systems are reviewed and are negative [facility] Past Medical History Medical History Ascites Anemia CHF (congestive heart failure) Pancytopenia Anxiety HTN (hypertension) Tremor Chronic diarrhea Primary biliary cholangitis Breast cancer Surgical History Transplant recipient Hx of colonoscopy Hx of esophagogastroduodenoscopy H/O: hysterectomy S/P hip replacement Liver transplant recipient Family History Family History Mother CAD (coronary artery disease) Sister Ovarian cancer Mental health disorder Social History Social History Household Members: Spouse Household Members Other:: , children Housing: House Do you presently have visiting nurse or other home services: No Alcohol intake: never Patient Tobacco Use Status: Never used Tobacco e-Cigarette/Vaping Use: Never Used Advance Directives Date on File: 12/15/22 service: No Current occupational status: retired Cognitive needs: No Hearing needs: No Vision needs: Yes Physical Exam ED Vital Signs: Vital Signs - 24 hr 12/25/22 09:41 Temperature 98.4 F Pulse Rate 99 Respiratory Rate 17 Blood Pressure 137/83 Pulse Oximetry 98 Oxygen Delivery Method Room Air BMI result Body Mass Index 24.2 Const General: cooperative, healthy appearing, comfortable, no acute distress, well developed, alert, awake and Physically active Orientation/consciousness: oriented to person, oriented to place, oriented to time and patient oriented x3 HENMT Head: Yes normal to inspection, Yes No palpable skull fracture present, Yes normocephalic, Yes atraumatic and No abrasion Eyes General: appearance normal, both eyes and all related structures Neck Neck: Yes normal visual inspection, Yes full ROM, Yes no lymphadenopathy, Yes no meningeal signs, Yes trachea midline, Yes supple, No anterior neck swelling and No tender Chest Chest palpation & inspection: normal inspection of the chest and normal palpation of entire chest wall Resp Effort & Inspection: normal respiratory effort and able to speak in complete sentences Auscultation: clear to auscultation bilaterally Cardio Jugular venous distension: no JVD Heart sounds: S1 normal heart sound present and S2 normal heart sound present GI Inspection: Yes normal to inspection and No abdominal wall ecchymosis Palpation (GI): Soft to palpation, not firm, nontender, no guarding and not rigid General: No CVA tenderness and Yes no CVA tenderness Back/Spine/Pelvis Back: no CVA tenderness, No CVA tenderness and No back tenderness Skin General skin exam: no rashes or lesions noted, elasticity normal and turgor normal Neuro General: oriented to person, oriented to place, oriented to time, patient oriented x3, gait normal, tone normal, moves all extremities, Normal light touch and pain sensation, no meningeal signs, no focal motor deficits, CN's II-XI intact bilaterally and normal sensation to monofilament Extrem General: Yes normal to inspection and Yes full ROM Ankle/foot/toe images: 2 1. positive for tenderness on palpation. Negative for crepitus, swelling, deformity, or ecchymosis. Motor exam intact but limited due to pain. Neuro /vascular exam intact 2. positive for tenderness on palpation. Negative for crepitus, swelling, deformity, or ecchymosis. Motor exam intact but limited due to pain. Neuro /vascular exam intact Psych Appearance: grossly normal, well kempt and not disheveled Medications Administered Discontinued Medications Generic Name Dose Route Start Last Admin Trade Name Freq PRN Reason Stop Dose Admin Oxycodone HCl 5 mg 12/25/22 10:44 12/25/22 11:05 Oxycodone Hcl Immed Release 5 Mg Tablet PO 12/25/22 10:45 5 mg ONCE ONE Administration Medical Decision Making Medical Decision Making [facility] Narrative: 67-year-old with right foot pain after turning foot hard when trending of the couch. Patient denies any blunt trauma or fall to the ground. Patient is not able to bear weight. X-ray ordered and shows 4th and 5th foot fracture. 12:06pm: Patient placed in posterior splint. Patient given oxycodone. Neurovascular exam after splint intact. Differential Diagnosis Differential Diagnoses: The differential diagnosis associated with the presentation includes (foot fracture, dislcoations, cellutlis, sprain) Admission/Observation Consideration of admission/observation: Escalation of care including admission/observation considered Independent Interpretation I performed an independent interpretation of an: Plain X-Ray Radiology Impression Discussion of test interpretation with radiology: I have reviewed the radiologist's reading. Independent Historian Clinical information obtained from an independent historian. History obtained from or confirmed by: Spouse External Record Review External record reviewed: Other (Prior ED visit) Prescription Management I considered prescription management with: Pain Medication Discharge Plan Discharge Clinical Impression: Foot fracture, right Patient Disposition: Home, Self-Care Instructions: Foot Fracture in Adults (ED) Additional Instructions: You have 2 fractures in your foot. You were placed in a posterior splint. Please follow-up with orthopedics for re-evaluation. Return to ED for worsening pain, bluish black discoloration of toes, numbness /tingling, calf pain, chest pain, shortness of breath, fever or chills. Prescriptions: New oxycodone 5 mg capsule 5 mg PO Q8H PRN (Reason: pain) 3 Days Qty: 9 0RF Rx Instructions: Partial Fill upon patient request. No Action Entyvio 300 mg recon soln 300 mg IV ONCE Qty: 1 0RF Rx Instructions: administer over 30 mins pantoprazole 40 mg tablet,delayed release (DR/EC) 40 mg PO QAM Qty: 30 11RF furosemide 40 mg tablet 40 mg PO DAILY Qty: 90 3RF Galzin 50 mg (zinc) capsule 50 mg PO DAILY Qty: 90 3RF cholecalciferol (vitamin D3) [Vitamin D3] 25 mcg (1,000 unit) Capsule 25 mcg PO DAILY cyanocobalamin (vitamin B-12) [Vitamin B-12] 1,000 mcg Tablet 1,000 mcg PO DAILY Qty: 90 3RF ursodiol 500 mg tablet 1 tab PO BID pyridoxine (vitamin B6) 100 mg tablet 100 mg PO BID vitamin A 10,000 unit Tablet 10,000 unit PO DAILY alprazolam 1 mg tablet 1 mg PO DAILY PRN (Reason: Anxiety) Rx Instructions: PRIOR TO PARACENTESIS magnesium glycinate 100 mg magnesium Capsule 100 mg PO DAILY bupropion HCl 75 mg tablet 300 mg PO DAILY colesevelam 625 mg tablet 1,875 mg PO BID (DME) Ultra-Light Rollator Misc See Rx Instructions .Route Qty: 1 0RF Rx Instructions: As directed gabapentin 300 mg capsule 600 mg PO BEDTIME Qty: 180 2RF tacrolimus 0.5 mg capsule 0.5 mg PO Q12H ondansetron 4 mg tablet,disintegrating 4 mg PO Q8H PRN (Reason: nausea and vomiting) Qty: 90 1RF Referrals: [facility] Orthopedic Surgeons [Provider Group] ( right foot fracture) Stand Alone Forms: Work/School Release Interventions: ED Discharge Assessment Last Done: 12/25/22 13:22 Discharge Date/Time: 12/25/22 13:22 Print Language: Thai
[2022-12-25] MEDS: oxyCODONE HCl Immed Release 5 MG TABLET PO (11:05)
== END 2022-12-25 13:22 | disposition home or self-care (01) ==
PROVIDERS: Emergency Provider Emergency Medicine; PCP Internal Medicine
DX: S92.341A Displaced fracture of fourth metatarsal bone, right foot, initial encounter for closed fracture (principal); S92.354A Nondisplaced fracture of fifth metatarsal bone, right foot, initial encounter for closed fracture; X58.XXXA Exposure to other specified factors, initial encounter; Y93.89 Activity, other specified; Y92.018 Other place in single-family (private) house as the place of occurrence of the external cause; Y99.9 Unspecified external cause status
CPT/HCPCS: 29515; 73620; 99284

== ENCOUNTER 2023-01-03 12:50 | Day surgery (SDC) | payer MEDICARE, OTHER, SELFPAY ==
--- NOTE | ~2023-01-03 | US_ITS ---
EXAMINATION: Ultrasound-guided paracentesis CLINICAL INFORMATION: Ascites COMPARISON: Previous exams most recent 12/22/2021 TECHNIQUE: Procedure and risks and benefits including bleeding, infection and low blood pressure were discussed with the patient and informed consent was obtained. The left lower quadrant was prepped and draped in the usual sterile fashion. The skin and soft tissues were anesthetized with 1% lidocaine plain. Using ultrasound guidance 5 Haitian Yueh needle, access to the ascitic fluid was obtained. 4 L of slightly cloudy gia-colored fluid was removed. No diagnostic specimen was sent. FINDINGS: There is a large amount of ascites. US/US paracentesis abd w/image IMPRESSION: Ultrasound-guided paracentesis.
--- OUTSIDE RECORDS SUMMARY | 2023-01-03 12:52 | XMS_ITS | Continuity of Care Document ---
Author Name Unknown Organization [facility] Address [address] [place] [id number]- Care Team Providers Care Chief Contract Officer Name Role Phone Taylor Zapata MD Primary Care Physician Encounter [facility] Date(s): 01/27/22 - 05/27/22 [facility] [address] [place] [id number]- Attending Physician: Oswaldo Mendez MD Admitting Physician: Oswaldo Mendez MD Referring Physician: Luciano Mccoy MD Allergies, Adverse Reactions, Alerts Substance Reaction Severity Status sulfADIAZINE Active Dilaudid Active Immunizations Given and Recorded Vaccine Date Status Refusal Reason SARS-CoV-2 (COVID-19) mRNA-1273 vaccine 05/24/20 R ecorded SARS-CoV-2 (COVID-19) mRNA-1273 vaccine 04/26/20 R ecorded Influenza Virus Vaccine (oldterm) 01/15/20 Recorde d influenza virus vaccine, inactivated 01/02/20 Melvin rded influenza virus vaccine, inactivated 1 12/20/18 Gi darryn influenza virus vaccine, inactivated 12/09/17 Melvin rded influenza virus vaccine, inactivated 02/01/17 Melvin rded influenza virus vaccine, inactivated 01/24/16 Melvin rded influenza virus vaccine, inactivated 01/24/15 Melvin rded influenza virus vaccine, inactivated 04/05/13 Melvin rded influenza virus vaccine, inactivated 12/30/11 Melvin rded influenza virus vaccine, inactivated 02/28/11 Melvin rded influenza virus vaccine, inactivated 01/13/10 Melvin rded Zoster Vaccine Live 06/03/15 Recorded pneumococcal 23-valent vaccine 03/12/15 Given Flu Vaccine 12/14/13 Recorded tetanus/diphtheria/pertussis, acel(Tdap) 06/02/11 Recorded 1Result Comment: [facility] [id number] Medications Alprazolam By Mouth, Refills 0, Maintenance, 04/20/22 8:18:00 EST, Partial fill upon patient request if the prescription is for a schedule II opioid drug. Start Date: 04/20/22 Status: Ordered Budesonide Refills 0, Maintenance, 04/20/22 8:17:00 EST Start Date: 04/20/22 Status: Ordered citalopram 40 mg oral tablet 1 tablet, By Mouth, Daily, # 90 tablet, 1 Refills, [facility], 152, cm, 02/11/2110:56:00 EST, Height Start Date: 04/06/21 Status: Ordered Colesevelam By Mouth, 0 Refills, Maintenance, 04/20/22 8:17:00 EST, Partial fill upon patient request if the prescription is for a schedule II opioid drug. Start Date: 04/20/22 Status: Ordered dicyclomine 10 mg oral capsule 1 capsule = 10 mg, By Mouth, 2 times a day, PRN Abdominal pain, # 90 capsule, 0 Refills, Maintenance, 02/11/21 22:49:00 EST, [facility], Partial fill upon patient request if the prescription is for a schedule II opioid drug., 152, c... Start Date: 02/11/21 Status: Ordered Furosemide Daily, 0 Refills, Maintenance, 04/20/22 8:17:00 EST, Partial fill upon patient request if the prescription is for a schedule II opioid drug. Start Date: 04/20/22 Status: Ordered gabapentin 300 mg oral capsule 900 mg, 3, capsule, By Mouth, Daily, # 270 capsule, Refills 3, Tot. Refills 3, Maintenance, 08/11/20 10:13:00 EDT, Route to Pharmacy Electronically, [facility], 152, cm, 04/29/20 13:50:00 EST, Height Start Date: 08/11/20 Stop Date: 08/06/21 Status: Ordered lisinopril 10 mg oral tablet 1, tablet, By Mouth, Daily, # 90 tablet, Refills 1, Route to Pharmacy Electronically, [facility], 152, cm, 02/11/21 10:56:00 EST, Height Start Date: 05/19/21 Status: Ordered Prograf 1 mg oral capsule 1 capsule = 1 mg, By Mouth, Every 12 hours, # 180 capsule, 0 Refills, Maintenance, 11/25/18 11:29:40 EDT, Capsule Start Date: 11/25/18 Status: Ordered Simvastatin By Mouth, 0 Refills, Maintenance, 04/20/22 8:18:00 EST, Partial fill upon patient request if the prescription is for a schedule II opioid drug. Start Date: 04/20/22 Status: Ordered Tylenol Caplet = 325 mg, By Mouth, 4 times a day, PRN as needed for pain, 0 Refills, Maintenance, 03/10/16 11:16:24 Start Date: 03/10/16 Status: Ordered Ursodiol By Mouth, 0 Refills, Maintenance, 04/20/22 8:17:00 EST, Partial fill upon patient request if the prescription is for a schedule II opioid drug. Start Date: 04/20/22 Status: Ordered Vitamin B12 0 Refills, Maintenance, 05/09/22 15:41:00 EST, Partial fill upon patient request if the prescription is for a schedule II opioid drug. Start Date: 05/09/22 Status: Ordered Vitamin B6 Daily, 0 Refills, Maintenance, 05/09/22 15:41:00 EST, Partial fill upon patient request if the prescription is for a schedule II opioid drug. Start Date: 05/09/22 Status: Ordered Vitamin D3 1000 intl units oral tablet 1 tablet = 1,000 International_Units, By Mouth, Daily, # 30 tablet, 3 Refills, Maintenance, 05/24/15 8:30:19, 1 tablet By Mouth Daily,x30 days Start Date: 05/24/15 Stop Date: 09/21/15 Status: Ordered Problem List Condition Confirmation Course Effective Dates Status Health [facility] Informant History of breast cancer Confirmed Active HTN (hypertension) Confirmed Active Primary biliary cirrhosis Confirmed Active Major depression, recurrent Confirmed Active Social History Social History Type Response Smoking Status Former smoker entered on: 12/02/14 Sex Patient Care team information Care Team Personnel Name: Praveena Ladd RN Position: [facility] RN Member Role: Primary Care Nurse Name: Lyric Adames RN Position: [facility] RN Member Role: Primary Care Nurse Name: Taylor Zapata MD Position: [facility] Physician (General Medicine) Member Role: PCP Address: Address: [address] [place] [address]- [place] Name: Jacy PYLE, Lesvia Position: [facility] RN Member Role: Primary Care Nurse Care Team Related Persons Name: QUINTON KELLEY Address: [address] [place] [address] Name: SALINA KELLEY Address: [address] [place] [address]
--- OUTSIDE RECORDS SUMMARY | 2023-01-03 12:52 | XMS_ITS | Continuity of Care Document ---
Author Name Unknown Organization [facility] Address [address] [place] [address]- Care Team Providers Care Fiber Glass Worker Name Role Phone Luciano Mccoy MD Primary Care Physician Encounter [facility] Date(s): 07/20/21 - 08/19/21 [facility] [address] [place] [id number]- [place] Allergies, Adverse Reactions, Alerts Substance Reaction Severity [...] Recorded tetanus/diphtheria/pertussis, acel(Tdap) 06/02/11 Recorded 1Result Comment: [facility] [id number] Medications citalopram 40 mg oral tablet 1 tablet, By Mouth, Daily, # 90 tablet, 1 Refills, [facility], 152, cm, 02/11/2110:56:00 EST, Height Start Date: 04/06/21 Status: Ordered dicyclomine 10 mg oral capsule 1 capsule = 10 mg, By Mouth, 2 times a day, PRN Abdominal pain, # 90 capsule, 0 Refills, Maintenance, 02/11/21 22:49:00 EST, [facility], Partial fill upon patient request if the prescription is for a schedule II opioid drug., 152, c... Start Date: 02/11/21 Status: Ordered gabapentin 300 mg oral capsule 900 mg, 3, capsule, By Mouth, Daily, # 270 capsule, Refills 3, Tot. Refills 3, Maintenance, 08/11/20 10:13:00 EDT, Route to Pharmacy Electronically, [facility], 152, cm, 04/29/20 13:50:00 EST, Height Start Date: 08/11/20 Stop Date: 08/06/21 Status: Ordered lisinopril 10 mg oral tablet 1, tablet, By Mouth, Daily, # 90 tablet, Refills 1, Route to Pharmacy Electronically, [facility], 152, cm, 02/11/21 10:56:00 EST, Height Start Date: 05/19/21 Status: Ordered Prograf 1 mg oral capsule 1 capsule = 1 mg, By Mouth, Every 12 hours, # 180 capsule, 0 Refills, Maintenance, 11/25/18 11:29:40 EDT, Capsule Start Date: 11/25/18 Status: Ordered Tylenol Caplet = 325 mg, By Mouth, 4 times a day, PRN as needed for pain, 0 Refills, Maintenance, 03/10/16 11:16:24 Start Date: 03/10/16 Status: Ordered Vitamin D3 1000 intl units oral tablet 1 tablet = 1,000 International_Units, By Mouth, Daily, # 30 tablet, 3 Refills, Maintenance, 05/24/15 8:30:19, 1 tablet By Mouth Daily,x30 days Start Date: 05/24/15 Stop Date: 09/21/15 Status: Ordered Problem List Condition Effective Dates Status Health Status Inform ant History of breast cancer(Confirmed) Active HTN (hypertension)(Confirmed) Active Primary biliary cirrhosis(Confirmed) Active Major depression, recurrent(Confirmed) Active Social History Social History Type Response Smoking Status Former smoker entered on: 12/02/14 Sex
--- OUTSIDE RECORDS SUMMARY | 2023-01-03 12:52 | XMS_ITS | Continuity of Care Document ---
Author Name Unknown Organization [facility] Address [address] [place] [address]- Care Team Providers Care Clay Puddler Name Role Phone Darius LOZANO, Luciano Primary Care Physician Encounter [facility] Date(s): 03/20/19 - 03/30/19 [facility] [address] [place] [address]- [facility] Attending Physician: Kaylah Vasquez Admitting Physician: Kaylah Vasquez Referring Physician: AdmtrKaylah Allergies, Adverse Reactions, Alerts Substance Reaction Severity Status sulfADIAZINE Active Dilaudid Active Immunizations Given and Recorded Vaccine Date Status Refusal Reason influenza virus vaccine, inactivated 1 12/20/18 Gi darryn pneumococcal 23-valent vaccine 03/12/15 Given 1Result Comment: [facility] [id number] Medications bupropion extended release = 150 mg, By Mouth, Daily, 0 Refills, Maintenance Start Date: 01/06/10 Status: Ordered citalopram 10 mg oral tablet 10 mg, 1, tablet, By Mouth, Daily, # 90 tablet, Refills 3, Tot. Refills 3, Maintenance, 11/20/18 10:08:59 EDT, Route to Pharmacy Electronically, [id number], [facility] Start Date: 11/20/18 Status: Ordered docusate sodium 100 mg oral capsule 1 capsule = 100 mg, By Mouth, 2 times a day, # 60 capsule, 3 Refills, Maintenance, 05/24/15 8:29:50, Capsule, 1 capsule By Mouth 2 times a day,x30 days Start Date: 05/24/15 Stop Date: 09/21/15 Status: Ordered gabapentin 300 mg oral capsule 900 mg, 3, capsule, By Mouth, Daily, # 270 capsule, Refills 0, Tot. Refills 0, Maintenance, 02/28/19 16:03:34 EST, Route to Pharmacy Electronically, [id number], [facility] Start Date: 02/28/19 Status: Ordered metoprolol 50 mg oral tablet 50 mg, 1, tablet, By Mouth, 2 times a day, # 180 tablet, Refills 3, Tot. Refills 3, Maintenance, 11/20/18 9:50:39 EDT, Route to Pharmacy Electronically, [id number], [facility] Start Date: 11/20/18 Status: Ordered oxyCODONE 5 mg oral capsule See Instructions, PRN Pain, 1-2 tablest every 4-6 hours for pain do not drink or drive with this, #10 capsule, 0 Refills, Maintenance, 03/25/19 18:01:00 EST, Capsule, [id number], Partial fill upon patient request, 140, cm, 02/20/19 10:15:00 E... Start Date: 03/25/19 Status: Ordered Prograf 0.5 mg oral capsule 1 capsule = 0.5 mg, By Mouth, Every 12 hours, 0 Refills, Maintenance, 03/10/16 11:14:25 Start Date: 03/10/16 Status: Ordered Prograf 1 mg oral capsule [...] Effective Dates Status Health Status Inform ant CA - breast, malignant, Righ t, pT1b pN0, (i) negative (SN). ER positive, 2001(Confirmed) 1, 2 04/05/00 Active Primary biliary cirrhosis(Confirmed) Active 1Right breast cancer treated with lumpectomy, radiation and 5 years tamoxifen 2PT1b,PN0(i-) (sn) Social History Social History Type Response Smoking Status Former smoker entered on: 12/02/14 Sex
--- OUTSIDE RECORDS SUMMARY | 2023-01-03 12:52 | XMS_ITS | Continuity of Care Document ---
Author Name Unknown Organization [facility] Adult Address [address] [place] [address]- Care Team Providers Care Court Operations Clerk Name Role Phone Darius LOZANO, Luciano Primary Care Physician Encounter [facility] [place] Date(s): 08/16/20 - 08/23/20 [facility] [address] [place] [address]- Encounter Diagnosis Medicare annual wellness visit, subsequent(Discharge Diagnosis) - 08/16/20 HTN (hypertension)(Discharge Diagnosis) - 08/16/20 Major depression, recurrent(Discharge Diagnosis) - 08/16/20 Primary biliary cirrhosis(Discharge Diagnosis) - 08/16/20 Chronic headaches(Discharge Diagnosis) - 08/16/20 Attending Physician: Luciano Mccoy MD Allergies, Adverse Reactions, Alerts Substance Reaction Severity Status sulfADIAZINE Active Dilaudid Active Immunizations Given and Recorded Vaccine Date Status Refusal Reason Influenza Virus Vaccine (oldterm) 01/15/20 Recorde d influenza virus vaccine, inactivated 1 12/20/18 Gi darryn pneumococcal 23-valent vaccine 03/12/15 Given 1Result Comment: [facility] [id number] Medications citalopram 40 mg oral tablet 40 mg, 1, tablet, By Mouth, Daily, # 90 tablet, Refills 3, Tot. Refills 3, Maintenance, 04/29/20 16:13:00 EST, Route to Pharmacy Electronically, [facility], Partial fill upon patient request if the prescription is for a schedule II... Start Date: 04/29/20 Status: Ordered gabapentin 300 mg oral capsule 900 mg, 3, capsule, By Mouth, Daily, # 270 capsule, Refills 3, Tot. Refills 3, Maintenance, 08/11/20 10:13:00 EDT, Route to Pharmacy Electronically, [facility], 152, cm, 04/29/20 13:50:00 EST, Height Start Date: 08/11/20 Stop Date: 08/06/21 Status: Ordered lisinopril 10 mg oral tablet 10 mg, 1, tablet, By Mouth, Daily, # 90 tablet, Refills 3, Tot. Refills 3, Maintenance, 12/14/19 9:01:00 EDT, Route to Pharmacy Electronically, [facility], 152, cm, 12/12/19 12:23:00 EDT, Height, 68.4, kg, 03/15/18 9:47:00 EST, Dry... Start Date: 12/14/19 Status: Ordered metoprolol 50 mg oral tablet 50 mg, 1, tablet, By Mouth, 2 times a day, # 180 tablet, Refills 3, Tot. Refills 3, Maintenance, 03/04/20 17:00:00 EST, Route to Pharmacy Electronically, [facility], 152, cm, 12/19/19 12:06:00 EDT, Height, 68.4, kg, 03/15/18 9:47:00... Start Date: 03/04/20 Status: Ordered Prograf 1 mg oral capsule [...] biliary cirrhosis(Confirmed) Active Major depression, recurrent(Confirmed) Active Diagnosis Diagnosis Type Effective Dates Health Status Clinical Service Informant Medicare annual wellness visit, subsequent Discharge Diagnosis 08/16/20 HTN (hypertension) Discharge Diagnosis 08/16/20 Major depression, recurrent Discharge Diagnosis 08/16/20 Primary biliary cirrhosis Discharge Diagnosis 08/16/20 Chronic headaches Discharge Diagnosis 08/16/20 Vital Signs Most recent to oldest [Reference Range]: 1 2 Height 152 cm (08/16/20 1:56 PM) 152 cm (08/16/20 1:11 PM) Weight 77.9 kg (08/16/20 1:11 PM) Oxygen Saturation [94-100 %] 99 % (08/16/20 1:56 PM) 64 % *L* (08/16/20 1:11 PM) Pulse Rate [55-90 bpm] 64 bpm (08/16/20 1:56 PM) 99 bpm *H* (08/16/20 1:11 PM) Body Mass Index [18.5-24.99] 33.72 *>HHI* (08/16/20 1:11 PM) Blood Pressure [90-138/55-84 mm Hg] 110/ 60mm Hg (08/16/20 1:11 PM) Mode of Delivery (Oxygen) Room air (08/16/20 1:11 PM) Blood pressure sites Arm, right (08/16/20 1:11 PM) Weight Obtained Via Standing scale (08/16/20 1:11 PM) Social History Social History Type Response Smoking Status Former smoker entered on: 12/02/14 Sex
--- OUTSIDE RECORDS SUMMARY | 2023-01-03 12:52 | XMS_ITS | Continuity of Care Document ---
Author Name Unknown Organization [facility] Adult Address [address] [place] [address]- Care Team Providers Care Black Topper Name Role Phone Luciano Mccoy MD Primary Care Physician [phone] Encounter [facility] Date(s): 10/09/19 - 11/08/19 [facility] Adult [address] [place] [address]- [facility] Allergies, Adverse Reactions, Alerts Substance Reaction Severity Status sulfADIAZINE Active Dilaudid Active Immunizations Given and Recorded Vaccine Date Status Refusal Reason influenza virus vaccine, inactivated 1 12/20/18 Gi darryn pneumococcal 23-valent vaccine 03/12/15 Given 1Result Comment: [facility] [id number] Medications bupropion extended release = 150 mg, By Mouth, Daily, 0 Refills, Maintenance Start Date: 01/06/10 Status: Ordered citalopram 10 mg oral tablet 10 mg, 1, tablet, By Mouth, Daily, # 90 tablet, Refills 0, Tot. Refills 0, Maintenance, 10/13/19 10:54:00 EDT, Route to Pharmacy Electronically, [facility], 140, cm, 05/22/19 10:42:00 EST, Height, 68.4, kg, 03/15/18 9:47:00 EST, Dry... Start Date: 10/13/19 Status: Ordered docusate sodium 100 mg oral [...] capsule, Refills 3, Tot. Refills 3, Maintenance, 09/22/19 14:37:00 EDT, Route to Pharmacy Electronically, [facility], 140, cm, 05/22/19 10:42:00 EST, Height, 68.4, kg, 03/15/18 9:47:00 EST,... Start Date: 09/22/19 Stop Date: 09/16/20 Status: Ordered metoprolol 50 mg oral tablet 50 mg, 1, tablet, By Mouth, 2 times a day, # 180 tablet, Refills 0, Tot. Refills 0, Maintenance, 09/22/19 12:12:00 EDT, Route to Pharmacy Electronically, [facility], 140, cm, 05/22/19 10:42:00 EST, Height, 68.4, kg, 03/15/18 9:47:00... Start Date: 09/22/19 Status: Ordered oxyCODONE 5 mg oral capsule See Instructions, PRN Pain, 1-2 tablest every 4-6 hours for pain do not drink or drive with this, #10 capsule, 0 Refills, Maintenance, 03/25/19 18:01:00 EST, Capsule, [facility]/pharmacy #[id number], Partial fill upon patient request, 140, [...]
--- OUTSIDE RECORDS SUMMARY | 2023-01-03 12:52 | XMS_ITS | Continuity of Care Document ---
Author Name Unknown Organization [facility] Adult Address [address] [place] [address]- Care Team Providers Care Coater Name Role Phone Darius LOZANO, Luciano Primary Care Physician [phone] Encounter [facility] [place] Date(s): 11/26/20 - 12/26/20 [facility] Adult [address] [place] [id number] Attending Physician: Kaylah Vasquez Admitting Physician: AdmtrKaylah Referring Physician: Admtr, Ar8 Allergies, Adverse Reactions, Alerts Substance Reaction Severity [...] Recorded tetanus/diphtheria/pertussis, acel(Tdap) 06/02/11 Recorded 1Result Comment: [facility] 50940-519-31 Medications citalopram 40 mg oral tablet 40 [...] Electronically, [facility], 152, cm, 08/16/20 13:56:00 EDT, Height Start Date: 11/21/20 Status: Ordered Prograf 1 mg oral capsule [...]
--- OUTSIDE RECORDS SUMMARY | 2023-01-03 12:53 | XMS_ITS | Continuity of Care Document ---
Author Name Unknown Organization [facility] Adult Address [address] [place] [address]- Care Team Providers Care Mattress Spring Encaser Name Role Phone Luciano Mccoy MD Primary Care Physician En[place] [facility] [place] Date(s): 04/20/20 - 05/20/20 [facility] Adult [address] [place] [address]- Allergies, Adverse Reactions, Alerts Substance Reaction Severity Status sulfADIAZINE Active Dilaudid Active Immunizations Given and Recorded Vaccine Date Status Refusal Reason Influenza Virus Vaccine (oldterm) 01/15/20 Recorde d influenza virus vaccine, inactivated 1 12/20/18 Gi darryn pneumococcal 23-valent vaccine 03/12/15 Given 1Result Comment: [facility] 21326-367-50 Medications citalopram 40 mg oral tablet 40 mg, 1, tablet, By Mouth, Daily, # 90 tablet, Refills 3, Tot. Refills 3, Maintenance, 04/29/20 16:13:00 EST, Route to Pharmacy Electronically, [facility], Partial fill upon patient request [...] Date: 09/22/19 Stop Date: 09/16/20 Status: Ordered lisinopril 10 mg oral tablet 10 mg, 1, tablet, By Mouth, Daily, # 90 tablet, Refills 3, Tot. Refills 3, Maintenance, 12/14/19 9:01:00 EDT, Route to Pharmacy Electronically, [facility], 152, cm, 12/12/19 12:23:00 EDT, Height, 68.4, kg, 03/15/18 9:47:00 EST, Dry... Start Date: 12/14/19 Status: Ordered metoprolol 50 mg oral tablet 50 mg, 1, tablet, By Mouth, 2 times a day, # 180 tablet, Refills 3, Tot. Refills 3, Maintenance, 03/04/20 17:00:00 EST, Route to Pharmacy Electronically, [facility], 152, cm, 12/19/19 12:06:00 EDT, [...]
--- OUTSIDE RECORDS SUMMARY | 2023-01-03 12:53 | XMS_ITS | Continuity of Care Document ---
Author Name Unknown Organization [facility] Address [address] [place] [address]- Care Team Providers Care Marine Steamfitter Name Role Phone Taylor Zapata MD Primary Care Physician [place] [facility] [place] Date(s[place] 09/25/22 - 10/25/22 [facility] [address] [place] [address]- Attending Physician: Kaylah Vasquez Admitting Physician: AdmKaylah castillo Referring Physician: AdmtrKaylah Allergies, Adverse Reactions, Alerts [...] 06/02/11 Recorded 1Result Comment: [facility] [id number] Medications Alprazolam By Mouth, Refills 0, Maintenance, [...] 152, c... Start Date: 02/11/21 Status: Ordered Entyvio = 300 mg, IV Infusion, Every 6 weeks, 0 Refills, Maintenance, 09/25/22 10:57:00 EDT, Partial fill upon patient request if the prescription is for a schedule II opioid drug. Start Date: 09/25/22 Status: Ordered Furosemide Daily, 0 Refills, Maintenance, [...] drug. Start Date: 04/20/22 Status: Ordered Vitamin A = 50,000 International_Units, Intramuscular, Daily, 0 Refills, Maintenance, 09/25/22 10:56:00 EDT, Partial fill upon patient request if the prescription is for a schedule II opioid drug. Start Date: 09/25/22 Status: Ordered Vitamin B12 0 Refills, Maintenance, 05/09/22 15:41:00 EST, Partial fill upon patient request if the prescription is for a schedule II opioid drug. Start Date: 05/09/22 Status: Ordered Vitamin B6 Daily, 0 Refills, Maintenance, 05/09/22 15:41:00 EST, Partial fill upon patient request if the prescription is for a schedule II opioid drug. Start Date: 05/09/22 Status: Ordered Vitamin C By Mouth, Daily, 0 Refills, Maintenance, 09/25/22 10:57:00 EDT, Partial fill upon patient request if the prescription is for a schedule II opioid drug. Start Date: 09/25/22 Status: Ordered Vitamin D3 1000 intl units [...] Team Personnel Name: Praveena Ladd RN Position: [facility] RN Member Role: Primary Care Nurse Name: Lyric Adames RN Position: [facility] SN RN Member Role: Primary Care Nurse Name: Taylor Zapata MD Position: [facility] Physician - Primary Care Member Role: PCP Address: Address: [address] Name: Lesvia Louie RN Position: [facility] OB RN Member Role: Primary Care Nurse Care Team Related Persons Name: QUINTON KELLEY Address: home [address] [place] [address] Name: SALINA KELLEY Address: [address] [place] [address]
--- OUTSIDE RECORDS SUMMARY | 2023-01-03 12:53 | XMS_ITS | Continuity of Care Document ---
Author Name Unknown Organization [facility] Address [address] [place] [address]- Care Team Providers Care Tier Lift Truck Operator Name Role Phone Luciano Mccoy MD Primary Care Physician Encounter [facility] [place] Date(s): 02/03/20 - 05/23/20 [facility] [address] [place] [address]- Attending Physician: Oswadlo Mendez MD Admitting Physician: Oswaldo Mendez MD Referring Physician: Luciano Mccoy MD Allergies, Adverse Reactions, Alerts Substance Reaction Severity Status sulfADIAZINE Active Dilaudid Active Immunizations Given and Recorded Vaccine Date Status Refusal Reason Influenza Virus Vaccine (oldterm) 01/15/20 Recorde d influenza virus vaccine, inactivated 1 12/20/18 Gi darryn pneumococcal 23-valent vaccine 03/12/15 Given 1Result Comment: [facility] [id number] Medications citalopram 40 mg oral tablet 40 [...]
--- OUTSIDE RECORDS SUMMARY | 2023-01-03 12:53 | XMS_ITS | Continuity of Care Document ---
Author Name Unknown Organization [facility] Adult Address [address] [place] [address]- Care Team Providers Care Kennel Manager Name Role Phone Luciano Mccoy MD Primary Care Physician [place] [facility] [place] 12/04/19 - 01/03/20 [facility] Adult [address] [place] [address] [facility] Allergies, Adverse Reactions, Alerts Substance Reaction Severity Status sulfADIAZINE Active Dilaudid Active Immunizations Given and Recorded Vaccine Date Status Refusal Reason influenza virus vaccine, inactivated 1 12/20/18 Gi darryn pneumococcal 23-valent vaccine 03/12/15 Given 1Result Comment: [facility] 33930-872-67 Medications citalopram 10 mg oral tablet 30 mg, 3, tablet, By Mouth, Daily, # 90 tablet, Refills 0, Tot. Refills 0, Maintenance, 12/09/19 16:40:00 EDT, Route to Pharmacy Electronically, [facility], 140, cm, 05/22/19 10:42:00 EST, Height, 68.4, kg, 03/15/18 9:47:00 EST, Dry... Start Date: 12/09/19 Status: Ordered gabapentin 300 mg oral capsule 900 mg, 3, capsule, By Mouth, Daily, # 270 capsule, Refills 3, Tot. Refills 3, Maintenance, 09/22/19 14:37:00 EDT, Route to Pharmacy Electronically, [facility], 140, cm, 05/22/19 10:42:00 EST, [...] tablet, Refills 0, Tot. Refills 0, Maintenance, 12/04/19 9:48:00 EDT, Route to Pharmacy Electronically, [facility], 140, cm, 05/22/19 10:42:00 EST, Height, 68.4, kg, 03/15/18 9:47:00... Start Date: 12/04/19 Status: Ordered Prograf 1 mg oral capsule [...] HTN (hypertension)(Confirmed) Active Primary biliary cirrhosis(Confirmed) Active Social History Social History Type Response Smoking Status Former smoker entered on: 12/02/14 Sex
--- OUTSIDE RECORDS SUMMARY | 2023-01-03 12:53 | XMS_ITS | Continuity of Care Document ---
Author Name Unknown Organization [facility] [place] Adult Address [address] [place] [address]- Care Team Providers Care Bid Manager Name Role Phone Luciano Mccoy MD Primary Care Physician Encounter [facility] Date(s): 10/22/19 - 11/21/19 [facility] [place] Adult [address] [place] [address]- [facility] Allergies, Adverse Reactions, Alerts Substance Reaction Severity Status sulfADIAZINE Active Dilaudid Active Immunizations Given and Recorded Vaccine Date Status Refusal Reason influenza virus vaccine, inactivated 1 12/20/18 Gi darryn pneumococcal 23-valent vaccine 03/12/15 Given 1Result Comment: [facility] [id number] Medications bupropion extended release = 150 mg, [...] 0 Refills, Maintenance, 03/25/19 18:01:00 EST, Capsule, [facility]/pharmacy #[id number], Partial fill upon patient request, [...]
--- OUTSIDE RECORDS SUMMARY | 2023-01-03 12:53 | XMS_ITS | Continuity of Care Document ---
Author Name Unknown Organization [facility] Address [address] [place] [address]- Care Team Providers Care General Assignment Reporter Name Role Phone Luciano Mccoy MD Primary Care Physician Encounter [facility] [place] Date(s): 12/28/20 - 01/27/21 [facility] [address] [place] [address] [place] Allergies, Adverse Reactions, Alerts Substance Reaction [...] Recorded tetanus/diphtheria/pertussis, acel(Tdap) 06/02/11 Recorded 1Result Comment: [facility] 64605-421-89 Medications citalopram 40 mg oral tablet 40 [...]
--- OUTSIDE RECORDS SUMMARY | 2023-01-03 12:53 | XMS_ITS | Continuity of Care Document ---
Author Name Unknown Organization [facility] Address [address] [place] [address]- Care Team Providers Care Broadcast Meteorologist Name Role Phone Not on Staff, PCP Primary Care Physician Unavail able Encounter [facility] [place] Date(s): 11/04/21 - 03/04/22 [facility] [address] [place] [address]- Attending Physician: Oswaldo Mendez MD Admitting Physician: Oswaldo Mendez MD Referring Physician: Oswaldo Mendez MD Allergies, Adverse Reactions, Alerts Substance Reaction [...] Recorded tetanus/diphtheria/pertussis, acel(Tdap) 06/02/11 Recorded 1Result Comment: [facility] 75995-431-23 Medications citalopram 40 mg oral tablet 1 [...] Team Personnel Name: Praveena Ladd RN Position: [facility] RN Member Role: Primary Care Nurse Name: Lyric Adames RN Position: [facility] SN RN Member Role: Primary Care Nurse Name: Lesvia Louie RN Position: [facility] OB RN Member Role: Primary Care Nurse Name: Not on Staff, PCP Position: [facility] Physician (General Medicine) Member Role: PCP Care Team Related Persons Name: WARRENQUINTON Address: home [address] [place] [address] Name: SALINA KELLEY Address: home [address] [place] [address]
--- OUTSIDE RECORDS SUMMARY | 2023-01-03 12:53 | XMS_ITS | Continuity of Care Document ---
Author Name Unknown Organization [facility] Adult Address [address] [place] [address]- Care Team Providers Care Biochemical Engineer Name Role Phone Luciano Mccoy MD Primary Care Physician [phone] En[place] [facility] [place] Date(s): 04/29/20 - 05/06/20 [facility] [address] [place] [address]- Encounter Diagnosis Major depression, recurrent(Discharge Diagnosis) - 04/29/20 HTN (hypertension)(Discharge Diagnosis) - 04/29/20 Primary biliary cirrhosis(Discharge Diagnosis) - 04/29/20 Attending Physician: uLciano Mccoy MD Allergies, Adverse Reactions, Alerts Substance Reaction Severity Status sulfADIAZINE Active Dilaudid Active Immunizations Given and Recorded Vaccine Date Status Refusal Reason Influenza Virus Vaccine (oldterm) 01/15/20 Recorde d influenza virus vaccine, inactivated 1 12/20/18 Gi darryn pneumococcal 23-valent vaccine 03/12/15 Given 1Result Comment: [facility] 83122-642-41 Medications citalopram 40 mg oral tablet 40 [...] Diagnosis Diagnosis Type Effective Dates Health Status Cl inical Service Informant Major depression, recurrent Discharge Diagnosis 04/29/20 HTN (hypertension) Discharge Diagnosis 04/29/20 Primary biliary cirrhosis Discharge Diagnosis 04/29/20 Vital Signs Most recent to oldest [Reference Range]: 1 Height 152 cm (04/29/20 1:50 PM) Weight 75.9 kg (04/29/20 1:50 PM) Body Mass Index [18.5-24.99] 32.85 *>HHI* (04/29/20 1:50 PM) Weight Obtained Via Patient/family state d (04/29/20 1:50 PM) Social History Social History Type Response Smoking Status Former smoker entered on: 12/02/14 Sex
--- OUTSIDE RECORDS SUMMARY | 2023-01-03 12:53 | XMS_ITS | Continuity of Care Document ---
Author Name Unknown Organization [facility] Adult Address [address] [place] [address]- Care Team Providers Care Special Effects Makeup Artist Name Role Phone Luciano Mccoy MD Primary Care Physician [place] [facility] [place] 02[place]15[place]20 - 03/16/20 [facility] Adult [address] [place] [address]- Allergies, Adverse Reactions, Alerts Substance Reaction Severity Status sulfADIAZINE Active Dilaudid Active Immunizations Given and Recorded Vaccine Date Status Refusal Reason influenza virus vaccine, inactivated 1 12/20/18 Gi darryn pneumococcal 23-valent vaccine 03/12/15 Given 1Result Comment: [facility] [id number] Medications citalopram 10 mg oral tablet 30 mg, 3, tablet, By Mouth, Daily, # 90 tablet, Refills 0, Tot. Refills 0, Maintenance, 12/09/19 16:40:00 EDT, [facility] to [facility], [facility] [...] 17:00:00 EST, Route to Pharmacy Electronically, [facility], 152, cm, 12/19/19 12:06:00 EDT, [...]
--- OUTSIDE RECORDS SUMMARY | 2023-01-03 12:53 | XMS_ITS | Continuity of Care Document ---
Author Name Unknown Organization [facility] Adult Address [address] [place] [address]- Care Team Providers Care Belt Repairer Name Role Phone Darius LOZANO, Luciano Primary Care Physician [phone] Encounter [facility] [place] Date(s): 05/22/19 - 06/01/19 [facility] Adult [address] [place] [address] [facility] Attending Physician: Kaylah Vasquez Admitting Physician: Kaylah Vasquez Referring Physician: AdmtrKaylah Allergies, Adverse Reactions, Alerts Substance Reaction Severity Status sulfADIAZINE Active Dilaudid Active Immunizations Given and Recorded Vaccine Date Status Refusal Reason influenza virus vaccine, inactivated 1 12/20/18 Gi darryn pneumococcal 23-valent vaccine 03/12/15 Given 1Result Comment: [facility] 52178-663-72 Medications bupropion extended release = 150 mg, By Mouth, Daily, 0 Refills, Maintenance Start Date: 01/06/10 Status: Ordered citalopram 10 mg oral tablet 10 mg, 1, tablet, By Mouth, Daily, # 90 tablet, Refills 3, Tot. Refills 3, Maintenance, 11/20/18 10:08:59 EDT, Route to Pharmacy Electronically, [id number], [facility] Start Date: 11/20/18 Status: Ordered docusate sodium 100 mg oral capsule 1 capsule = 100 mg, By Mouth, 2 times a day, # 60 capsule, 3 Refills, Maintenance, 05/24/15 8:29:50, Capsule, 1 capsule By Mouth 2 times a day,x30 days Start Date: 05/24/15 Stop Date: 09/21/15 Status: Ordered gabapentin 300 mg oral capsule 900 mg, 3, capsule, By Mouth, Daily, # 21 capsule, Refills 0, Tot. Refills 0, Maintenance, 04/14/2011:45:00 EST, Route to Pharmacy Electronically, [facility], 140, cm, 02/20/19 10:15:00 EST, Height, 68.4, kg, 03/15/18 9:47:00 E... Start Date: 04/14/19 Stop Date: 04/21/19 Status: Ordered metoprolol 50 mg oral tablet 50 mg, 1, tablet, By Mouth, 2 times a day, # 180 tablet, Refills 3, Tot. Refills 3, Maintenance, 11/20/18 9:50:39 EDT, Route to Pharmacy Electronically, [id number], [facility] Start Date: 11/20/18 Status: Ordered oxyCODONE 5 mg oral capsule See Instructions, PRN Pain, 1-2 tablest every 4-6 hours for pain do not drink or drive with this, #10 capsule, 0 Refills, Maintenance, 03/25/19 18:01:00 EST, Capsule, [facility]/pharmacy #[id number], Partial fill upon patient request, 140, [...]
--- OUTSIDE RECORDS SUMMARY | 2023-01-03 12:53 | XMS_ITS | Continuity of Care Document ---
Author Name Unknown Organization [facility] Address [address] [place] [address]- Care Team Providers Care Speedometer Inspector Name Role Phone Luciano Mccoy MD Primary Care Physician [phone] Encounter [facility] [place] Date(s): 06/01/21 - 09/29/21 [facility] [address] [place] [address]- Attending Physician: Luciano Mccoy MD Allergies, Adverse [...] Recorded tetanus/diphtheria/pertussis, acel(Tdap) 06/02/11 Recorded 1Result Comment: [facility] [id number] Medications citalopram 40 mg oral tablet 1 [...]
--- OUTSIDE RECORDS SUMMARY | 2023-01-03 12:53 | XMS_ITS | Continuity of Care Document ---
Author Name Unknown Organization [facility] Adult Address [address] [place] [address]- Care Team Providers Care Workplace Rehabilitation Officer Name Role Phone Luciano Mccoy MD Primary Care Physician [phone] Encounter [facility] Date(s): 09/30/19 - 10/30/19 [facility] Adult [address] [place] [address]- [facility] Allergies, Adverse Reactions, Alerts Substance Reaction Severity Status sulfADIAZINE Active Dilaudid Active Immunizations Given and Recorded Vaccine Date Status Refusal Reason influenza virus vaccine, inactivated 1 12/20/18 Gi darryn pneumococcal 23-valent vaccine 03/12/15 Given 1Result Comment: [facility] 18858-589-79 Medications bupropion extended release = 150 mg, [...] 0 Refills, Maintenance, 03/25/19 18:01:00 EST, Capsule, [facility]/pharmacy #[id number], Partial fill upon patient request, 140, [...]
--- OUTSIDE RECORDS SUMMARY | 2023-01-03 12:53 | XMS_ITS | Continuity of Care Document ---
Author Name Unknown Organization [facility] Address [address] [facility], [address] [place] [address]- Care Team Providers Care Cardiology Coordinator Name Role Phone Darius LOZANO, Luciano Primary Care Physician Encounter 04/15/21 - 04/22/21 [facility] [address], [facility] [address] [place] [address]- Attending Physician: Magda LOZANO, Zhane Arnold Admitting Physician: Magda LOZANO, Zhane Arnold Referring Physician: Zhane Man MD Allergies, Adverse Reactions, Alerts Substance Reaction [...] Recorded tetanus/diphtheria/pertussis, acel(Tdap) 06/02/11 Recorded 1Result Comment: [facility] 69498-132-04 Medications citalopram 40 mg oral tablet 1 [...]
--- OUTSIDE RECORDS SUMMARY | 2023-01-03 12:53 | XMS_ITS | Continuity of Care Document ---
Author Name Unknown Organization [facility] Adult Address [address] [place] [address]- Care Team Providers Care Lost Charge Card Clerk Name Role Phone Luciano Mccoy MD Primary Care Physician [phone] Encounter [facility] Date(s): 10/23/19 - 11/22/19 [facility] Adult [address] [place] [address]- [facility] Allergies, Adverse Reactions, Alerts Substance Reaction Severity Status sulfADIAZINE Active Dilaudid Active Immunizations Given and Recorded Vaccine Date Status Refusal Reason influenza virus vaccine, inactivated 1 12/20/18 Gi darryn pneumococcal 23-valent vaccine 03/12/15 Given 1Result Comment: [facility] 90409-803-33 Medications bupropion extended release = 150 mg, [...] 0 Refills, Maintenance, 03/25/19 18:01:00 EST, Capsule, [facility]/pharmacy #[id number], Partial fill upon patient request, 140, [...]
--- OUTSIDE RECORDS SUMMARY | 2023-01-03 12:53 | XMS_ITS | Continuity of Care Document ---
Author Name Unknown Organization [facility] Address [address] [facility], [address] [place] [address]- Care Team Providers Care Map Clerk Name Role Phone Luciano Mccoy MD Primary Care Physician Encounter 09/07/20 - 09/14/20 [facility] [address], [facility] [address] [place] [address]- Attending Physician: Luciano Mccoy MD Admitting Physician: Luciano Mccoy MD Referring Physician: Luciano Mccoy MD Allergies, Adverse Reactions, Alerts Substance Reaction Severity Status sulfADIAZINE Active Dilaudid Active Immunizations Given and Recorded Vaccine Date Status Refusal Reason Influenza Virus Vaccine (oldterm) 01/15/20 Recorde d influenza virus vaccine, inactivated 1 12/20/18 Gi darryn pneumococcal 23-valent vaccine 03/12/15 Given 1Result Comment: [facility] 11022-451-46 Medications citalopram 40 mg oral tablet 40 [...] 9:01:00 EDT, Route to Pharmacy Electronically, [facility], 152, cm, 12/12/19 12:23:00 EDT, Height, 68.4, kg, 03/15/18 9:47:00 EST, Dry... Start Date: 12/14/19 Status: Ordered metoprolol 50 mg oral tablet 50 mg, 1, tablet, By Mouth, 2 times a day, # 180 tablet, Refills 3, Tot. Refills 3, Maintenance, 03/04/20 17:00:00 EST, Route to Pharmacy Electronically, [facility], 152, cm, 12/19/19 12:06:00 EDT, [...]
--- OUTSIDE RECORDS SUMMARY | 2023-01-03 12:53 | XMS_ITS | Continuity of Care Document ---
Author Name Unknown Organization [facility] Address [address] [facility] [address] [place] [address]- Care Team Providers Care After School Program Teacher Name Role Phone Taylor Zapata MD Primary Care Physician Encounter 09/28/22 - 10/05/22 [facility] [address], [address] [place] [address]- Attending Physician: Jacquie Rodgers Admitting Physician: Jacquie Rodgers Referring Physician: Jacquie Rodgers Allergies, Adverse Reactions, Alerts Substance Reaction Severity [...] Recorded tetanus/diphtheria/pertussis, acel(Tdap) 06/02/11 Recorded 1Result Comment: [facility] 47281-949-63 Medications Alprazolam By Mouth, Refills 0, Maintenance, [...] Confirmed Active Major depression, recurrent Confirmed Active Results Radiology Reports * Exam Date Time Procedure Performing Provider Status 09/28/22 9:10 AM MM Digital Screen Ma mmo Unilat Left Zhane Parks; Auth (Verified) Notes: (MM Digital Screen Mammo Unilat Left) Reason For Exam: Screening RESULT: MM Digital Screen Mammo Unilat Left PROCEDURE: MM Digital Screen Mammo Unilat Left INDICATION: Screening for breast cancer. No known palpable abnormalities. COMPARISON: Multiple prior studies dating back to 04/15/2020. TECHNIQUE: Full-field digital CC and MLO 3D tomosynthesis images of the left breast were acquired. Computer-aided detection (CAD) was utilized in the interpretation of this study. DENSITY: The breast tissue contains scattered areas of fibroglandular density. FINDINGS: Increasing calcifications in the outer left breast at mid depth. Recommend further evaluation with CC and ML magnification views. IMPRESSION: Additional imaging recommended. We will recall the patient. RECOMMENDATION: Left diagnostic mammogram BI-RADS: 0 Incomplete - Need Additional Imaging Evaluation. Lay letter mailed to patient WSN: [id number] Ordering Physician: Jacquie Davis Dictated By: Misha Velasco MD Dictated Date/Time: 09/28/22 12:11 pm Reviewed By: Misha Velasco MD Signed By: Misha Velasco MD Signed Date/Time: 09/28/22 12:11 pm Transcribed By: GUERA Practice Nurse Date/Time: 09/28/22 12:09 pm Birads: Social History Social History Type Response Smoking Status Former smoker entered on: 12/02/14 Sex Patient Care team information Care Team Personnel Name: Praveena Ladd RN Position: [facility] RN Member Role: Primary Care Nurse Name: Lyric Adames RN Position: [facility] RN Member Role: Primary Care Nurse Name: Taylor Zapata MD Position: [facility] Physician - Primary Care Member Role: PCP Address: Address: [address] [place] [address]- [place] Name: Jacy RN, Lesvia Position: [facility] RN Member Role: Primary Care Nurse Care Team Related Persons Name: QUINTON KELLEY Address: home [address] [place] [address] Name: SALINA KELLEY Address: [address] [place] [address]
--- OUTSIDE RECORDS SUMMARY | 2023-01-03 12:53 | XMS_ITS | Continuity of Care Document ---
Author Name Unknown Organization [facility] Adult Address [address] [place] [address]- Care Team Providers Care Registration Scheduling Specialist Name Role Phone Darius LOZANO, Luciano Primary Care Physician Encounter [facility] Date(s): 11/26/20 - 12/03/20 [facility] Adult [address] [place] [address]- Encounter Diagnosis Preop examination(Discharge Diagnosis) - 11/26/20 HTN (hypertension)(Discharge Diagnosis) - 11/26/20 History of breast cancer(Discharge Diagnosis) - 11/26/20 Major depression, recurrent(Discharge Diagnosis) - 11/26/20 Primary biliary cirrhosis(Discharge Diagnosis) - 11/26/20 Attending Physician: Shyann Roldan NP Referring Physician: Sp Canchola MD Allergies, Adverse Reactions, Alerts Substance Reaction Severity Status sulfADIAZINE Active Dilaudid Active Immunizations Given and Recorded Vaccine Date Status Refusal Reason SARS-CoV-2 (COVID-19) mRNA-1273 vaccine 05/24/20 R ecorded SARS-CoV-2 (COVID-19) mRNA-1273 vaccine 04/26/20 R ecorded Influenza Virus Vaccine (oldterm) 01/15/20 Recorde d influenza virus vaccine, inactivated 01/02/20 Melvin rded influenza virus vaccine, inactivated 1 12/20/18 Gi draryn influenza virus vaccine, inactivated 12/09/17 Melvin rded influenza virus vaccine, inactivated 02/01/17 Mlevin rded influenza virus vaccine, inactivated 01/24/16 Melvin rded influenza virus vaccine, inactivated 01/24/15 Melvin rded influenza virus vaccine, inactivated 04/05/13 Melvin rded influenza virus vaccine, inactivated 12/30/11 Melvin rded influenza virus vaccine, inactivated 02/28/11 Melvin rded influenza virus vaccine, inactivated 01/13/10 Melvin rded Zoster Vaccine Live 06/03/15 Recorded pneumococcal 23-valent vaccine 03/12/15 Given Flu Vaccine 12/14/13 Recorded tetanus/diphtheria/pertussis, acel(Tdap) 06/02/11 Recorded 1Result Comment: [facility] 15828-174-94 Medications citalopram 40 mg oral tablet 40 mg, 1, tablet, By Mouth, Daily, # 90 tablet, Refills 3, Tot. Refills 3, Maintenance, 04/29/20 16:13:00 EST, Route to Pharmacy Electronically, [facility], Partial fill upon patient request if the prescription is for a schedule II... Start Date: 04/29/20 Status: Ordered gabapentin 300 mg oral capsule 900 mg, 3, capsule, By Mouth, Daily, # 270 capsule, Refills 3, Tot. Refills 3, Maintenance, 08/11/20 10:13:00 EDT, Route to Pharmacy Electronically, [facility], 152, cm, 04/29/20 13:50:00 EST, Height Start Date: 08/11/20 Stop Date: 08/06/21 Status: Ordered lisinopril 10 mg oral tablet 1, tablet, By Mouth, Daily, # 90 tablet, Refills 1, Route to Pharmacy Electronically, [facility], 152, cm, 08/16/20 13:56:00 EDT, [...] Effective Dates Health Status Clinical Service Informant Preop examination Discharge Diagnosis 11/26/20 HTN (hypertension) Discharge Diagnosis 11/26/20 History of breast cancer Discharge Diagnosis 11/26/20 Major depression, recurrent Discharge Diagnosis 11/26/20 Primary biliary cirrhosis Discharge Diagnosis 11/26/20 Vital Signs Most recent to oldest [Reference Range]: 1 2 Height 152 cm (11/26/20 9:56 AM) 152 cm (11/26/20 9:06 AM) Weight 77.5 kg (11/26/20 9:06 AM) Oxygen Saturation [94-100 %] 97 % (11/26/20 9:06 AM) Pulse Rate [55-90 bpm] 80 bpm (11/26/20 9:06 AM) Body Mass Index [18.5-24.99] 33.54 *>HHI* (11/26/20 9:06 AM) Blood Pressure [90-138/55-84 mm Hg] 108/ 76mm Hg (11/26/20 9:56 AM) 133/85mm Hg (11/26/20 9:06 AM) Mode of Delivery (Oxygen) Room air (11/26/20 9:06 AM) Blood pressure sites Arm, left (11/26/20 9:56 AM) Arm, left (11/26/20 9:06 AM) Weight Obtained Via Standing scale (11/26/20 9:06 AM) Social History Social History Type Response Smoking Status Former smoker entered on: 12/02/14 Sex
--- OUTSIDE RECORDS SUMMARY | 2023-01-03 12:53 | XMS_ITS | Continuity of Care Document ---
Author Name Unknown Organization [facility] Adult Address [address] [place] [address]- Care Team Providers Care Client Service Professional Name Role Phone Luciano Mccoy MD Primary Care Physician [phone] En[place] [facility] Date(s): 08/23/20 - 09/22/20 [facility] Adult [address] [place] [address]- Allergies, Adverse Reactions, Alerts Substance Reaction Severity Status sulfADIAZINE Active Dilaudid Active Immunizations Given and Recorded Vaccine Date Status Refusal Reason Influenza Virus Vaccine (oldterm) 01/15/20 Recorde d influenza virus vaccine, inactivated 1 12/20/18 Gi darryn pneumococcal 23-valent vaccine 03/12/15 Given 1Result Comment: [facility] 28805-269-27 Medications citalopram 40 mg oral tablet 40 mg, 1, tablet, By Mouth, Daily, # 90 tablet, Refills 3, Tot. Refills 3, Maintenance, 04/29/20 16:13:00 EST, Route to Pharmacy Electronically, [facility], Partial fill upon patient request [...]
--- OUTSIDE RECORDS SUMMARY | 2023-01-03 12:53 | XMS_ITS | Continuity of Care Document ---
Author Name Unknown Organization [facility] Adult Address [address] [place] [address]- Care Team Providers Care Barge Loader Name Role Phone Luciano Mccoy MD Primary Care Physician [phone] Encounter [facility] Date(s): 09/07/20 - 10/07/20 [facility] Adult [address] [place] [address]- Allergies, Adverse Reactions, Alerts Substance Reaction Severity Status sulfADIAZINE Active Dilaudid Active Immunizations Given and Recorded Vaccine Date Status Refusal Reason Influenza Virus Vaccine (oldterm) 01/15/20 Recorde d influenza virus vaccine, inactivated 1 12/20/18 Gi darryn pneumococcal 23-valent vaccine 03/12/15 Given 1Result Comment: [facility] 46709-120-13 Medications citalopram 40 mg oral tablet 40 mg, 1, tablet, By Mouth, Daily, # 90 tablet, Refills 3, Tot. Refills 3, Maintenance, 04/29/20 16:13:00 EST, Route to Pharmacy Electronically, [facility], Partial fill upon patient request [...]
--- OUTSIDE RECORDS SUMMARY | 2023-01-03 12:53 | XMS_ITS | Continuity of Care Document ---
Author Name Unknown Organization [facility] Adult Address [address] [place] [address]- Care Team Providers Care Well Puller Name Role Phone Luciano Mccoy MD Primary Care Physician Encounter [facility] Date(s): 12/23/19 - 01/22/20 [facility] Adult [address] [place] [address]- [facility] Allergies, Adverse Reactions, Alerts Substance Reaction Severity Status sulfADIAZINE Active Dilaudid Active Immunizations Given and Recorded Vaccine Date Status Refusal Reason influenza virus vaccine, inactivated 1 12/20/18 Gi darryn pneumococcal 23-valent vaccine 03/12/15 Given 1Result Comment: [facility] 36019-477-29 Medications citalopram 10 mg oral tablet 30 [...] 14:37:00 EDT, Route to Pharmacy Electronically, [facility], 140, cm, 05/22/19 10:42:00 EST, [...] 9:48:00 EDT, Route to Pharmacy Electronically, [facility], 140, cm, 05/22/19 10:42:00 EST, [...]
--- OUTSIDE RECORDS SUMMARY | 2023-01-03 12:54 | XMS_ITS | Continuity of Care Document ---
Author Name Unknown Organization [facility] Adult Address [address] [place] [address]- Care Team Providers Care Casino Shift Manager Name Role Phone Luciano Mccoy MD Primary Care Physician [phone] En[place] [facility] Date(s[place] 12/12/19 - 12/19/19 [facility] Adult [address] [place] [address]- [facility] Encounter Diagnosis Well adult exam(Discharge Diagnosis) - 12/12/19 Fatigue(Discharge Diagnosis) - 12/14/19 HTN (hypertension)(Discharge Diagnosis) - 12/14/19 Bilateral leg pain(Discharge Diagnosis) - 12/14/19 Primary biliary cirrhosis(Discharge Diagnosis) - 12/14/19 History of breast cancer(Discharge Diagnosis) - 12/14/19 Attending Physician: Luciano Mccoy MD Allergies, Adverse Reactions, Alerts Substance Reaction Severity Status sulfADIAZINE Active Dilaudid Active Immunizations Given and Recorded Vaccine Date Status Refusal Reason influenza virus vaccine, inactivated 1 12/20/18 Gi darryn pneumococcal 23-valent vaccine 03/12/15 Given 1Result Comment: [facility] 90869-217-50 Medications citalopram 10 mg oral tablet 30 mg, 3, tablet, By Mouth, Daily, # 90 tablet, Refills 0, Tot. Refills 0, Maintenance, 12/09/19 16:40:00 EDT, Route to Pharmacy Electronically, [facility], 140, cm, 05/22/19 10:42:00 EST, Height, 68.4, kg, 03/15/18 9:47:00 EST, Dry... Start Date: 12/09/19 Status: Ordered docusate sodium 100 mg oral [...] 14:37:00 EDT, Route to Pharmacy Electronically, [facility], 140, cm, 05/22/19 10:42:00 EST, Height, 68.4, kg, 03/15/18 9:47:00 EST,... Start Date: 09/22/19 Stop Date: 09/16/20 Status: Ordered lisinopril 10 mg oral tablet 10 mg, 1, tablet, By Mouth, Daily, # 90 tablet, Refills 3, Tot. Refills 3, Maintenance, 12/14/19 9:01:00 EDT, Route to Pharmacy Electronically, [facility], 152, cm, 12/12/19 12:23:00 EDT, Height, 68.4, kg, 03/15/18 9:47:00 EST, Dry... Start Date: 12/14/19 Status: Ordered metoprolol 50 mg oral tablet 50 mg, 1, tablet, By Mouth, 2 times a day, # 180 tablet, Refills 0, Tot. Refills 0, Maintenance, 12/04/19 9:48:00 EDT, Route to Pharmacy Electronically, [facility], 140, cm, 05/22/19 10:42:00 EST, Height, 68.4, kg, 03/15/18 9:47:00... Start Date: 12/04/19 Status: Ordered oxyCODONE 5 mg oral capsule See Instructions, PRN Pain, 1-2 tablest every 4-6 hours for pain do not drink or drive with this, #10 capsule, 0 Refills, Maintenance, 03/25/19 18:01:00 EST, Capsule, [id number], Partial fill upon patient request, 140, cm, 02/20/19 10:15:00 E... Start Date: 03/25/19 Status: Ordered Prograf 1 mg oral capsule [...] HTN (hypertension)(Confirmed) Active Primary biliary cirrhosis(Confirmed) Active Diagnosis Diagnosis Type Effective Dates Health Status Cl inical Service Informant Well adult exam Discharge Diagnosis 12/12/19 Fatigue Discharge Diagnosis 12/14/19 HTN (hypertension) Discharge Diagnosis 12/14/19 Bilateral leg pain Discharge Diagnosis 12/14/19 Primary biliary cirrhosis Discharge Diagnosis 12/14/19 History of breast cancer Discharge Diagnosis 12/14/19 Vital Signs Most recent to oldest [Reference Range]: 1 Height 152 cm (12/12/19 12:23 PM) Weight 79.1 kg (12/12/19 12:23 PM) Oxygen Saturation [94-100 %] 96 % (12/12/19 12:23 PM) Pulse Rate [55-90 bpm] 76 bpm (12/12/19 12:23 PM) Body Mass Index [18.5-24.99] 34.24 *>HHI* (12/12/19 12:23 PM) Blood Pressure [90-138/55-84 mm Hg] 136/ 72mm Hg (12/12/19 12:23 PM) Temperature [96.8-100.4 DegF] 98.5 DegF (12/12/19 12:23 PM) Mode of Delivery (Oxygen) Room air (12/12/19 12:23 PM) Blood pressure sites Arm, left (12/12/19 12:23 PM) Temperature Route Oral (12/12/19 12:23 PM) Weight Obtained Via Standing scale (12/12/19 12:23 PM) Social History Social History Type Response Smoking Status Former smoker entered on: 12/02/14 Sex
--- OUTSIDE RECORDS SUMMARY | 2023-01-03 12:54 | XMS_ITS | Continuity of Care Document ---
Author Name Unknown Organization [facility] Address [address] [place] [address]- Care Team Providers Care Midlevel Provider Name Role Phone Luciano Mccoy MD Primary Care Physician [phone] [place] [facility] [place] 04/23/20 - 05/23/20 [facility] [address] [place] [address]- Attending Physician: Admtr, Ar8 Allergies, Adverse Reactions, Alerts Substance Reaction Severity Status sulfADIAZINE Active Dilaudid Active Immunizations Given and Recorded Vaccine Date Status Refusal Reason Influenza Virus Vaccine (oldterm) 01/15/20 Recorde d influenza virus vaccine, inactivated 1 12/20/18 Gi darryn pneumococcal 23-valent vaccine 03/12/15 Given 1Result Comment: [facility] 03011-289-85 Medications citalopram 40 mg oral tablet 40 [...]
--- OUTSIDE RECORDS SUMMARY | 2023-01-03 12:54 | XMS_ITS | Continuity of Care Document ---
Author Name Unknown Organization [facility] Address [address] [place] [address]- Care Team Providers Care Injury Prevention Coordinator Name Role Phone Jodi LOZANO, Taylor Primary Care Physician [phone] Encounter [facility] Date(s): 04/19/22 - 05/19/22 [facility] [address] [place] [address]- Allergies, Adverse Reactions, Alerts Substance Reaction Severity [...] tetanus/diphtheria/pertussis, acel(Tdap) 06/02/11 Recorded 1Result Comment: [facility] 74782-502-45 Medications Alprazolam By Mouth, Refills 0, Maintenance, [...] List Condition Confirmation Course Effective Dates Status [facility] Informant History of breast cancer Confirmed Active HTN (hypertension) Confirmed Active Primary biliary cirrhosis Confirmed Active Major depression, recurrent Confirmed Active Social History Social History Type Response Smoking Status Former smoker entered on: 12/02/14 Sex Patient Care team information Care Team Personnel Name: Praveena Ladd RN Position: [facility] RN Member Role: Primary Care Nurse Name: Lyric Adames RN Position: [facility] RN Member Role: Primary Care Nurse Name: Taylor Zapata MD Position: [facility] Physician (General Medicine) Member Role: PCP Address: Address: [address] [place], [place] [address] Name: Lesvia Louie RN Position: [facility] OB RN Member Role: Primary Care Nurse Care Team Related Persons Name: QUINTON KELLEY Address: [address] [place] [address] Name: SALINA KELLEY Address: [address] [place] [address]
--- OUTSIDE RECORDS SUMMARY | 2023-01-03 12:54 | XMS_ITS | Continuity of Care Document ---
Author Name Unknown Organization [facility] Address [address] [place] [address]- Care Team Providers Care Epoxy Coatings Installer Name Role Phone Luciano Mccoy MD Primary Care Physician [phone] [place] [facility] [place] Date(s): 03/04/21 - 04/03/21 [facility] [address] [place] [address]- [place] Allergies, Adverse Reactions, Alerts Substance Reaction [...] Recorded tetanus/diphtheria/pertussis, acel(Tdap) 06/02/11 Recorded 1Result Comment: [facility] 12108-710-43 Medications citalopram 40 mg oral tablet 40 mg, 1, tablet, By Mouth, Daily, # 90 tablet, Refills 3, Tot. Refills 3, Maintenance, 04/29/20 16:13:00 EST, Route to Pharmacy Electronically, [facility], Partial fill upon patient request if the prescription is for a schedule II... Start Date: 04/29/20 Status: Ordered dicyclomine 10 mg oral capsule [...]
--- OUTSIDE RECORDS SUMMARY | 2023-01-03 12:54 | XMS_ITS | Continuity of Care Document ---
Author Name Unknown Organization [facility] Address [address] [address]- Care Team Providers Care Display Designer Name Role Phone Luciano Mccoy MD Primary Care Physician Encounter [facility] [place] Date(s): 12/19/19 - 01/18/20 [facility] [address] [address]- [facility] Attending Physician: Kaylah Vasquez Admitting Physician: AdmtrKaylah Referring Physician: Admtr, Ar8 Allergies, Adverse Reactions, Alerts Substance Reaction Severity Status sulfADIAZINE Active Dilaudid Active Immunizations Given and Recorded Vaccine Date Status Refusal Reason influenza virus vaccine, inactivated 1 12/20/18 Gi darryn pneumococcal 23-valent vaccine 03/12/15 Given 1Result Comment: [facility] [id number] Medications citalopram 10 mg oral tablet 30 [...] 9:01:00 EDT, Route to Pharmacy Electronically, [facility], 152, cm, 12/12/19 12:23:00 EDT, Height, 68.4, kg, 03/15/18 9:47:00 EST, Dry... Start Date: 12/14/19 Status: Ordered metoprolol 50 mg oral tablet 50 mg, 1, tablet, By Mouth, 2 times a day, # 180 tablet, Refills 0, Tot. Refills 0, Maintenance, 12/04/19 9:48:00 EDT, Route to Pharmacy Electronically, [facility], 140, cm, 05/22/19 10:42:00 EST, [...]
--- OUTSIDE RECORDS SUMMARY | 2023-01-03 12:54 | XMS_ITS | Continuity of Care Document ---
Author Name Unknown Organization [facility] ter Address [address] [place] [address]- Care Team Providers Care Fagot Heater Name Role Phone Darius LOZANO, Luciano Primary Care Physician [phone] Encounter [facility] [place] Date(s): 03/25/19 - 03/25/[address] [address]- [facility] Discharge Disposition: A-D/C Home Attending Physician: Fanny Enriquez MD Admitting Physician: Fanny Enriquez MD Referring Physician: Not on Staff, Referring MD Allergies, Adverse Reactions, Alerts Substance Reaction Severity Status sulfADIAZINE Active Dilaudid Active Immunizations Given and Recorded Vaccine Date Status Refusal Reason influenza virus vaccine, inactivated 1 12/20/18 Gi darryn pneumococcal 23-valent vaccine 03/12/15 Given 1Result Comment: [facility] [id number] Medications bupropion extended release = 150 mg, By Mouth, Daily, 0 Refills, Maintenance Start Date: 01/06/10 Status: Ordered citalopram 10 mg oral tablet 10 mg, 1, tablet, By Mouth, Daily, # 90 tablet, Refills 3, Tot. Refills 3, Maintenance, 11/20/18 10:08:59 EDT, Route to Pharmacy Electronically, [id number], [facility] Start Date: 11/20/18 Status: [...] 02/28/19 16:03:34 EST, Route to Pharmacy Electronically, [id number], [facility] [place] Start Date: 02/28/19 Status: Ordered metoprolol 50 mg oral tablet 50 mg, 1, tablet, By Mouth, 2 times a day, # 180 tablet, Refills 3, Tot. Refills 3, Maintenance, 11/20/18 9:50:39 EDT, Route to Pharmacy Electronically, [id number], [facility] Start Date: 11/20/18 Status: Ordered oxyCODONE 5 mg oral capsule See Instructions, PRN Pain, 1-2 tablest every 4-6 hours for pain do not drink or drive with this, #10 capsule, 0 Refills, Maintenance, 03/25/19 18:01:00 EST, Capsule, [facility]/pharmacy #[id number], Partial fill upon patient request, 140, [...] radiation and 5 years tamoxifen 2PT1b,PN0(i-) (sn) Vital Signs Most recent to oldest [Reference Range]: 1 2 3 Oxygen Saturation [94-100 %] 100 % (03/25/19 6:30 PM) 100 % (03/25/19 4:41 PM) 100 % (03/25/19 1:36 PM) Pulse Rate [55-90 bpm] 76 bpm (03/25/19 6:30 PM) 61 bpm (03/25/19 4:41 PM) 65 bpm (03/25/19 1:36 PM) Blood Pressure [90-138/55-84 mm Hg] 161/89mm Hg *H* (03/25/19 6:30 PM) 153/91mm Hg *H* (03/25/19 4:41 PM) 174/89mm Hg *H* (03/25/19 1:36 PM) Respiratory Rate [16-30 br/min] 16 br/min (03/25/19 6:30 PM) 16 br/min (03/25/19 4:41 PM) 20 br/min (03/25/19 1:36 PM) Temperature [96.8-100.4 DegF] 98.1 DegF (03/25/19 4:41 PM) 98.3 DegF (03/25/19 1:36 PM) Mode of Delivery (Oxygen) Room air (03/25/19 6:30 PM) Room air (03/25/19 4:41 PM) Room air (03/25/19 1:36 PM) Blood pressure sites Arm, left (03/25/19 6:30 PM) Arm, left (03/25/19 4:41 PM) Arm, left (03/25/19 1:36 PM) Temperature Route Oral (03/25/19 4:41 PM) Oral (03/25/19 1:36 PM) Social History Social History Type Response Smoking Status Former smoker entered on: 12/02/14 Sex
--- OUTSIDE RECORDS SUMMARY | 2023-01-03 12:54 | XMS_ITS | Continuity of Care Document ---
Author Name Unknown Organization [facility] Address [address] [place] [address]- Care Team Providers Care Psych Tech Name Role Phone Luciano Mccoy MD Primary Care Physician [phone] [place] [facility] [place] 09/28/21 - 10/28/21 [facility] [address] [place] [address] [place] Allergies, Adverse Reactions, Alerts Substance Reaction [...] tetanus/diphtheria/pertussis, acel(Tdap) 06/02/11 Recorded 1Result Comment: [facility] [id number] Medications citalopram 40 mg oral tablet 1 tablet, By Mouth, Daily, # 90 tablet, 1 Refills, [facility], 152, cm, 02/11/2110:56:00 EST, Height Start Date: 04/06/21 Status: Ordered dicyclomine 10 mg oral capsule 1 capsule = 10 mg, By Mouth, 2 times a day, PRN Abdominal pain, # 90 capsule, 0 Refills, Maintenance, 02/11/21 22:49:00 EST, [facility], Partial fill upon patient request if the prescription is for a schedule II opioid drug., 152, c... Start Date: 02/11/21 Status: Ordered gabapentin 300 mg oral capsule 900 mg, 3, capsule, By Mouth, Daily, # 270 capsule, Refills 3, Tot. Refills 3, Maintenance, 08/11/20 10:13:00 EDT, Route to Pharmacy Electronically, [facility], 152, cm, 04/29/20 13:50:00 EST, Height Start Date: 08/11/20 Stop Date: 08/06/21 Status: Ordered lisinopril 10 mg oral tablet 1, tablet, By Mouth, Daily, # 90 tablet, Refills 1, Route to Pharmacy Electronically, [facility], 152, cm, 02/11/21 10:56:00 EST, [...]
--- OUTSIDE RECORDS SUMMARY | 2023-01-03 12:54 | XMS_ITS | Continuity of Care Document ---
Author Name Unknown Organization [facility] Address [address] [place] [address]- Care Team Providers Care Manufacturing Accountant Name Role Phone Luciano Mccoy MD Primary Care Physician [phone] Encounter [facility] [place] Date(s): 12/23/19 - 01/22/20 [facility] [address] [place] [address]- [facility] Allergies, Adverse Reactions, Alerts Substance Reaction Severity Status sulfADIAZINE Active Dilaudid Active Immunizations Given and Recorded Vaccine Date Status Refusal Reason influenza virus vaccine, inactivated 1 12/20/18 Gi darryn pneumococcal 23-valent vaccine 03/12/15 Given 1Result Comment: [facility] 60894-800-49 Medications citalopram 10 mg oral tablet 30 mg, 3, tablet, By Mouth, Daily, # 90 tablet, Refills 0, Tot. Refills 0, Maintenance, 12/09/19 16:40:00 EDT, Route to Pharmacy Electronically, [facility], 140, cm, 05/22/19 10:42:00 EST, Height, 68.4, kg, 03/15/18 9:47:00 EST, Dry... Start Date: 12/09/19 Status: Ordered gabapentin 300 mg oral capsule 900 mg, 3, capsule, By Mouth, Daily, # 270 capsule, Refills 3, Tot. Refills 3, Maintenance, 09/22/19 14:37:00 EDT, Route to Pharmacy Electronically, [facility], 140, cm, 05/22/19 10:42:00 EST, [...]
--- OUTSIDE RECORDS SUMMARY | 2023-01-03 12:54 | XMS_ITS | Continuity of Care Document ---
Author Name Unknown Organization [facility] Adult Address [address] [place] [address]- Care Team Providers Care Coiler Operator Name Role Phone Darius LOZANO, Luciano Primary Care Physician [phone] Encounter [facility] Date(s): 12/22/20 - 01/21/21 [facility] Adult [address] [place] [id number] Allergies, Adverse Reactions, Alerts Substance Reaction Severity [...] [facility] [id number] Medications citalopram 40 mg oral tablet 40 mg, 1, tablet, By Mouth, Daily, # 90 tablet, Refills 3, Tot. Refills 3, Maintenance, 04/29/20 16:13:00 EST, Route to Pharmacy Electronically, [facility], Partial fill upon patient request if the prescription is for a schedule II... Start Date: 04/29/20 Status: Ordered gabapentin 300 mg oral capsule 900 mg, 3, capsule, By Mouth, Daily, # 270 capsule, Refills 3, Tot. Refills 3, Maintenance, 08/11/20 10:13:00 EDT, Route to Pharmacy Electronically, [facility], 152, cm, 04/29/20 13:50:00 EST, Height Start Date: 08/11/20 Stop Date: 08/06/21 Status: Ordered lisinopril 10 mg oral tablet 1, tablet, By Mouth, Daily, # 90 tablet, Refills 1, Route to Pharmacy Electronically, [facility], 152, cm, 08/16/20 13:56:00 EDT, [...]
--- OUTSIDE RECORDS SUMMARY | 2023-01-03 12:54 | XMS_ITS | Continuity of Care Document ---
Author Name Unknown Organization [facility] Address [address] [place] [address]- Care Team Providers Care Head Men'S Golf Coach Name Role Phone Darius LOZANO, Luciano Primary Care Physician En[place] [facility] [place] Date(s): 12/20/18 - 04/19/19 [facility] [address] [place] [address]- [facility] Attending Physician: Aisha Douglass NP Admitting Physician: Aisha Douglass NP Referring Physician: Everett Vargas MD Allergies, Adverse Reactions, Alerts Substance Reaction Severity Status sulfADIAZINE Active Dilaudid Active Immunizations Given and Recorded Vaccine Date Status Refusal Reason influenza virus vaccine, inactivated 1 12/20/18 Gi darryn pneumococcal 23-valent vaccine 03/12/15 Given 1Result Comment: [facility] 31966-446-16 Medications bupropion extended release = 150 mg, By Mouth, Daily, 0 Refills, Maintenance Start Date: 01/06/10 Status: Ordered citalopram 10 mg oral tablet 10 mg, 1, tablet, By Mouth, Daily, # 90 tablet, Refills 3, Tot. Refills 3, Maintenance, 11/20/18 10:08:59 EDT, Route to Pharmacy Electronically, [id number], [facility] Start Date: 11/20/18 Status: [...] Maintenance, 04/14/2011:45:00 EST, Route to Pharmacy Electronically, [facility], 140, cm, 02/20/19 10:15:00 EST, Height, 68.4, kg, 03/15/18 9:47:00 E... Start Date: 04/14/19 Stop Date: 04/21/19 Status: Ordered metoprolol 50 mg oral tablet 50 mg, 1, tablet, By Mouth, 2 times a day, # 180 tablet, Refills 3, Tot. Refills 3, Maintenance, 11/20/18 9:50:39 EDT, Route to Pharmacy Electronically, [id number], [facility] [place] Start Date: 11/20/18 Status: Ordered oxyCODONE 5 mg oral capsule See Instructions, PRN Pain, 1-2 tablest every 4-6 hours for pain do not drink or drive with this, #10 capsule, 0 Refills, Maintenance, 03/25/19 18:01:00 EST, Capsule, [facility]/pharmacy #[id number], Partial fill upon patient [...]
--- OUTSIDE RECORDS SUMMARY | 2023-01-03 12:54 | XMS_ITS | Continuity of Care Document ---
Author Name Unknown Organization [facility] Address [address] [place] [address]- Care Team Providers Care Devops Engineer Name Role Phone Darius LOZANO, Luciano Primary Care Physician [id number] Date(s): 05/22/19 - 05/29/19 [facility] [address] [place] [address]- [facility] Encounter Diagnosis Right leg pain(Discharge Diagnosis) - 05/24/19 Attending Physician: Luciano Mccoy MD Allergies, Adverse Reactions, Alerts Substance Reaction Severity Status sulfADIAZINE Active Dilaudid Active Immunizations Given and Recorded Vaccine Date Status Refusal Reason influenza virus vaccine, inactivated 1 12/20/18 Gi darryn pneumococcal 23-valent vaccine 03/12/15 Given 1Result Comment: [facility] 95174-908-87 Medications bupropion extended release = 150 mg, By Mouth, Daily, 0 Refills, Maintenance Start Date: 01/06/10 Status: Ordered citalopram 10 mg oral tablet 10 mg, 1, tablet, By Mouth, Daily, # 90 tablet, Refills 3, Tot. Refills 3, Maintenance, 11/20/18 10:08:59 EDT, Route to Pharmacy Electronically, [id number], [facility] Start Date: 11/20/18 Status: [...] Maintenance, 04/14/2011:45:00 EST, Route to Pharmacy Electronically, [facility], 140, cm, 02/20/19 10:15:00 EST, Height, 68.4, kg, 03/15/18 9:47:00 E... Start Date: 04/14/19 Stop Date: 04/21/19 Status: Ordered metoprolol 50 mg oral tablet 50 mg, 1, tablet, By Mouth, 2 times a day, # 180 tablet, Refills 3, Tot. Refills 3, Maintenance, 11/20/18 9:50:39 EDT, Route to Pharmacy Electronically, [id number], [facility] Start Date: 11/20/18 Status: Ordered oxyCODONE 5 mg oral capsule See Instructions, PRN Pain, 1-2 tablest every 4-6 hours for pain do not drink or drive with this, #10 capsule, 0 Refills, Maintenance, 03/25/19 18:01:00 EST, Capsule, [facility]/pharmacy #[id number], Partial fill upon patient request, [...] radiation and 5 years tamoxifen 2PT1b,PN0(i-) (sn) Diagnosis Diagnosis Type Effective Dates Health Status Cl inical Service Informant Right leg pain Discharge Diagnosis 05/24/19 Vital Signs Most recent to oldest [Reference Range]: 1 2 Height 140 cm (05/22/19 10:42 AM) 140 cm (05/22/19 10:33 AM) Weight 74.6 kg (05/22/19 10:33 AM) Oxygen Saturation [94-100 %] 93 % *L* (05/22/19 10:33 AM) Pulse Rate [55-90 bpm] 70 bpm (05/22/19 10:33 AM) Body Mass Index [18.5-24.99] 38.06 *>HHI* (05/22/19 10:33 AM) Blood Pressure [90-138/55-84 mm Hg] 122/ 72mm Hg (05/22/19 10:42 AM) 144/80mm Hg *H* (05/22/19 10:33 AM) Temperature [96.8-100.4 DegF] 97.7 DegF (05/22/19 10:33 AM) Mode of Delivery (Oxygen) Room air (05/22/19 10:33 AM) Blood pressure sites Arm, right (05/22/19 10:42 AM) Arm, left (05/22/19 10:33 AM) Temperature Route Oral (05/22/19 10:33 AM) Weight Obtained Via Standing scale (05/22/19 10:33 AM) Social History Social History Type Response Smoking Status Former smoker entered on: 12/02/14 Sex
--- OUTSIDE RECORDS SUMMARY | 2023-01-03 12:54 | XMS_ITS | Continuity of Care Document ---
Author Name Unknown Organization [facility] ter Address [address] [place] [address]- Care Team Providers Care Mill Labor Supervisor Name Role Phone Luciano Mccoy MD Primary Care Physician Encounter [facility] [place] Date(s): 04/04/19 - 04/04/[address] [address]- [facility] Attending Physician: Not on Staff, Attending MD Allergies, Adverse Reactions, Alerts Substance Reaction Severity Status sulfADIAZINE Active Dilaudid Active Immunizations Given and Recorded Vaccine Date Status Refusal Reason influenza virus vaccine, inactivated 1 12/20/18 Gi darryn pneumococcal 23-valent vaccine 03/12/15 Given 1Result Comment: [facility] 51374-138-71 Medications bupropion extended release = 150 mg, By Mouth, Daily, 0 Refills, Maintenance Start Date: 01/06/10 Status: Ordered citalopram 10 mg oral tablet 10 mg, 1, tablet, By Mouth, Daily, # 90 tablet, Refills 3, Tot. Refills 3, Maintenance, 11/20/18 10:08:59 EDT, Route to Pharmacy Electronically, [id number], [facility] Start Date: 11/20/18 Status: [...] 02/28/19 16:03:34 EST, Route to Pharmacy Electronically, [id number], [facility] Start Date: 02/28/19 Status: Ordered metoprolol 50 mg oral tablet 50 mg, 1, tablet, By Mouth, 2 times a day, # 180 tablet, Refills 3, Tot. Refills 3, Maintenance, 11/20/18 9:50:39 EDT, Route to Pharmacy Electronically, [id number], [facility] Start Date: 11/20/18 Status: Ordered oxyCODONE 5 mg oral capsule See Instructions, PRN Pain, 1-2 tablest every 4-6 hours for pain do not drink or drive with this, #10 capsule, 0 Refills, Maintenance, 03/25/19 18:01:00 EST, Capsule, [facility]/pharmacy #[id number], Partial fill upon patient request, [...]
--- OUTSIDE RECORDS SUMMARY | 2023-01-03 12:54 | XMS_ITS | Continuity of Care Document ---
Author Name Unknown Organization [facility] Address [address] [place] [address]- Care Team Providers Care Oil Heater Operator Name Role Phone Darius LOZANO, Luciano Primary Care Physician [place] [facility] [place] Date(s): 11/22/18 - 03/22/19 [facility] [address] [place] [address] Attending Physician: Oswaldo Mendez MD Admitting Physician: Oswaldo Mendez MD Referring Physician: Everett Vargas MD Allergies, Adverse Reactions, Alerts Substance Reaction Severity Status sulfADIAZINE Active Dilaudid Active Immunizations Given and Recorded Vaccine Date Status Refusal Reason influenza virus vaccine, inactivated 1 12/20/18 Gi darryn pneumococcal 23-valent vaccine 03/12/15 Given 1Result Comment: [facility] 55632-891-74 Medications bupropion extended release = 150 mg, By Mouth, Daily, 0 Refills, Maintenance Start Date: 01/06/10 Status: Ordered citalopram 10 mg oral tablet 10 mg, 1, tablet, By Mouth, Daily, # 90 tablet, Refills 3, Tot. Refills 3, Maintenance, 11/20/18 10:08:59 EDT, Route to Pharmacy Electronically, [id number], [facility] Start Date: 11/20/18 Status: [...] 02/28/19 16:03:34 EST, Route to Pharmacy Electronically, [id number], [facility] Start Date: 02/28/19 Status: Ordered metoprolol 50 mg oral tablet 50 mg, 1, tablet, By Mouth, 2 times a day, # 180 tablet, Refills 3, Tot. Refills 3, Maintenance, 11/20/18 9:50:39 EDT, Route to Pharmacy Electronically, [id number], [facility] Start Date: 11/20/18 Status: Ordered Prograf 0.5 mg oral capsule [...]
--- OUTSIDE RECORDS SUMMARY | 2023-01-03 12:54 | XMS_ITS | Continuity of Care Document ---
Author Name Unknown Organization [facility] Address [address] [address]- Care Team Providers Care Generator Mechanic Name Role Phone Luciano Mccoy MD Primary Care Physician [phone] [place] [facility] [place] [place] [id number] Date(s): 12/19/19 - 12/26/19 [facility] [address] [address] [facility] Attending Physician: Lesvia Vega MD Admitting Physician: Lesvia Vega MD Referring Physician: Luciano Mccoy MD Allergies, Adverse Reactions, Alerts Substance Reaction Severity Status sulfADIAZINE Active Dilaudid Active Immunizations Given and Recorded Vaccine Date Status Refusal Reason influenza virus vaccine, inactivated 1 12/20/18 Gi darryn pneumococcal 23-valent vaccine 03/12/15 Given 1Result Comment: [facility] 85295-346-50 Medications citalopram 10 mg oral tablet 30 [...] 9:48:00 EDT, Route to Pharmacy Electronically, [facility], 140, cm, 05/22/19 10:42:00 EST, [...] HTN (hypertension)(Confirmed) Active Primary biliary cirrhosis(Confirmed) Active Vital Signs Most recent to oldest [Reference Range]: 1 Height 152 cm (12/19/19 12:06 PM) Weight 78 kg (12/19/19 12:06 PM) Oxygen Saturation [94-100 %] 94 % (9/18/20 12:06 PM) Pulse Rate [55-90 bpm] 64 bpm (12/19/19 12:06 PM) Body Mass Index [18.5-24.99] 33.76 *>HHI* (12/19/19 12:06 PM) Blood Pressure [90-138/55-84 mm Hg] 122/ 82mm Hg (12/19/19 12:06 PM) Mode of Delivery (Oxygen) Room air (12/19/19 12:06 PM) Blood pressure sites Arm, left (12/19/19 12:06 PM) Weight Obtained Via Standing scale (12/19/19 12:06 PM) Social History Social History Type Response Smoking Status Former smoker entered on: 12/02/14 Sex
--- OUTSIDE RECORDS SUMMARY | 2023-01-03 12:54 | XMS_ITS | Continuity of Care Document ---
Author Name Unknown Organization [facility] Address [address] [place] [address]- Care Team Providers Care Sas Developer Analyst Name Role Phone Luciano Mccoy MD Primary Care Physician [phone] En[place] [facility] [place] Date(s): 10/23/19 - 11/22/19 [facility] [address] [place] [address]- [facility] Allergies, Adverse Reactions, Alerts Substance Reaction Severity Status sulfADIAZINE Active Dilaudid Active Immunizations Given and Recorded Vaccine Date Status Refusal Reason influenza virus vaccine, inactivated 1 12/20/18 Gi darryn pneumococcal 23-valent vaccine 03/12/15 Given 1Result Comment: [facility] 27551-697-15 Medications bupropion extended release = 150 mg, [...] 0 Refills, Maintenance, 03/25/19 18:01:00 EST, Capsule, [facility]/pharmacy #[id number], Partial fill upon patient request, [...]
--- OUTSIDE RECORDS SUMMARY | 2023-01-03 12:54 | XMS_ITS | Continuity of Care Document ---
Author Name Unknown Organization [facility] Address [address] [place] [address]- Care Team Providers Care Bar Hostess Name Role Phone Darius LOZANO, Luciano Primary Care Physician Encounter [facility] Date(s): 12/27/20 - 01/26/21 [facility] [address] [place] [email or web address] Allergies, Adverse Reactions, Alerts Substance Reaction Severity [...] Melvin rded influenza virus vaccine, inactivated 01/13/10 Melivn rded Zoster Vaccine Live 06/03/15 Recorded pneumococcal 23-valent vaccine 03/12/15 Given Flu Vaccine 12/14/13 Recorded tetanus/diphtheria/pertussis, acel(Tdap) 06/02/11 Recorded 1Result Comment: [facility] 51330-370-34 Medications citalopram 40 mg oral tablet 40 mg, 1, tablet, By Mouth, Daily, # 90 tablet, Refills 3, Tot. Refills 3, Maintenance, 04/29/20 16:13:00 EST, Route to Pharmacy Electronically, [facility], Partial fill upon patient request if the prescription is for a schedule II... Start Date: 04/29/20 Status: Ordered gabapentin 300 mg oral capsule 900 mg, 3, capsule, By Mouth, Daily, # 270 capsule, Refills 3, Tot. Refills 3, Maintenance, 08/11/20 10:13:00 EDT, Route to Pharmacy Electronically, [facility], 152, cm, 04/29/20 13:50:00 EST, Height Start Date: 08/11/20 Stop Date: 08/06/21 Status: Ordered lisinopril 10 mg oral tablet 1, tablet, By Mouth, Daily, # 90 tablet, Refills 1, Route to Pharmacy Electronically, [facility], 152, cm, 08/16/20 13:56:00 EDT, [...]
--- OUTSIDE RECORDS SUMMARY | 2023-01-03 12:54 | XMS_ITS | Continuity of Care Document ---
Author Name Unknown Organization [facility] Address [address] [place] [address]- Care Team Providers Care Physician [facility] Name Role Phone Darius LOZANO, Luciano Primary Care Physician [phone] Encounter [facility] Date(s): 01/28/21 - 02/27/21 [facility] [address] [place] [id number] Allergies, Adverse Reactions, Alerts Substance [...] Recorded tetanus/diphtheria/pertussis, acel(Tdap) 06/02/11 Recorded 1Result Comment: [facility] 09072-881-40 Medications citalopram 40 mg oral tablet 40 [...]
--- OUTSIDE RECORDS SUMMARY | 2023-01-03 12:54 | XMS_ITS | Continuity of Care Document ---
Author Name Unknown Organization [facility] Address [address] [place] [address]- Care Team Providers Care Cosmetic Consultant Name Role Phone Taylor Zapata MD Primary Care Physician Encounter [facility] Date(s): 04/27/22 - 05/27/22 [facility] [address] [place] [address]- Attending Physician: Kaylah Vasquez Referring Physician: Zhane Man MD Allergies, Adverse [...] Recorded tetanus/diphtheria/pertussis, acel(Tdap) 06/02/11 Recorded 1Result Comment: [facility] 25340-540-02 Medications Alprazolam By Mouth, Refills 0, Maintenance, [...] List Condition Confirmation Course Effective Dates Status [facility] History of breast cancer Confirmed Active HTN (hypertension) Confirmed Active Primary biliary cirrhosis Confirmed Active Major depression, recurrent Confirmed Active Social History Social History Type Response Smoking Status Former smoker entered on: 12/02/14 Sex Note * Event Display: Non BH Lab Results Authored Date: * Event Display: Non Radiology Results Authored Date: * Riky Merida: PERFORM, SIGN, VERIFY Event Display: Patient Education/Instruction Authored Date: [id number] [facility] Clinical Summary Person Information Name PRAVEENA KELLEY Age 55 Years 1955 12:00 AM PCP [facility] Edwards [id number] Reason for Visit: Allergy Info: NKA Vital Signs Height Weight BMI Blood Pressure / Temperature Pulse Rate Respiratory Rate 02 Sat Mode of Delivery / Medication Information Ascorbic Acid (ascorbic acid 500 mg oral tablet) , Oral, Tomorrow, Refills: 0 BuPROpion (bupropion extended release) , Oral, Tomorrow, Refills: 0 Calcium Carbonate (calcium carbonate 500 mg oral tablet, chewable) 1 tablet, Chew, twice a day, Refills: 0 Cholecalciferol (Vitamin D3 1000 intl units oral tablet) 1 tablet, Oral, Tomorrow, Refills: 0 Citalopram (citalopram 20 mg oral tablet) 1 tablet, Oral, Tomorrow, Refills: 0 Docusate (docusate sodium 100 mg oral capsule) 1 capsule, Oral, twice a day, Refills: 0 Gabapentin (gabapentin 100 mg oral capsule) , Oral, 3 times a day, Refills: 0 Hydromorphone (hydromorphone 2 mg oral tablet) , Oral, every 4 hours, As Needed, Pain , Moderate, Refills: 0 Levofloxacin (Levaquin 500 mg oral tablet) 1 tablet, Oral, every 24 hours, Refills: 0 Omeprazole (omeprazole 20 mg oral enteric coated capsule) 1 capsule, Oral, Tomorrow, Refills: 0 Omeprazole (omeprazole 20 mg oral enteric coated tablet) 1 tablet, Oral, Tomorrow, Refills: 3 Oxycodone / Acetaminophen (Percocet-5/325 325 mg-5 mg oral tablet) 2 tablet, Oral, every 6 hours, As Needed, Pain, Refills: 0 Polyethylene Glycol 3350 (polyethylene glycol 3350 oral powder for reconstitution) , Refills: 0 Ramipril (ramipril 5 mg oral capsule) 1 capsule, Oral, Tomorrow, Refills: 0 Senna (senna 187 mg oral tablet) 1 tablet, Oral, Daily at Bedtime, Refills: 0 Sulfamethoxazole/Trimethoprim (Bactrim DS Tablet) , Oral, twice a day Ursodiol (ursodiol 300 mg oral capsule) 1 capsule, Oral, twice a day, Refills: 0 Warfarin (warfarin 4 mg oral tablet) , Oral, once, Refills: 0 Problem List Date Problem 02/09/11 Primary biliary cirrhosis If the following labs have been performed in the last year, the most recent result is displayed below. Diagnostic Results Lab Result Value Date Lead Hemoglobin A1C LDL HDL Triglycerides Total Cholesterol Disclaimer: The information provided is of a general nature and is intended to be used in conjunction with the recommendations and advice of your health care practitioner. Every effort has been made to ensure that the information provided is accurate and complete at the time it is provided to you however, as your needs change, or, as new information becomes available, different or additional instructions may be required. If you have questions, please consult with your primary care provider or pharmacist, as appropriate. This information is not intended to serve as substitution for assessment and evaluation by a qualified health care provider. If you do not have a primary care provider, you may find a [facility] provider by calling [facility] at [phone]. Patient Education Information Follow-up Details: With: Address: When: Melissa KAPOOR [address] [place] [address] [facility] () Comments: follow up booked for 08/17 at 11:05am with Melissa on a day Dr Hearn is in the office With: Address: When: Melissa KAPOOR [address] [place] [address] Comments: ultrasound booked for 08/07 at 9am at [address] per Melissa Patient Education Material: * Corrine Oneil: PERFORM Event Display: Radiology Results Scanned Authored Date: [id number] Patient Care team information Care Team Personnel Name: Praveena Ladd RN Position: [facility] RN Member Role: Primary Care Nurse Name: Lyric Adames RN Position: [facility] SN RN Member Role: Primary Care Nurse Name: Taylor Zapata MD Position: [facility] Physician (General Medicine) Member Role: PCP Address: Address: [address] [place], [place] [address] Name: Lesvia Louie RN Position: [facility] OB RN Member Role: Primary Care Nurse Care Team Related Persons Name: QUINTON KELLEY Address: [place] [address] Name: SALINA KELLEY Address: home [address] [place] [address]
--- OUTSIDE RECORDS SUMMARY | 2023-01-03 12:54 | XMS_ITS | Continuity of Care Document ---
Author Name Unknown Organization [facility] Address [address] [place] [address]- Care Team Providers Care Learning Designer Name Role Phone Luciano Mccoy MD Primary Care Physician Encounter [facility] Date(s): 08/30/21 - 09/29/21 [facility] [address] [place] [address]- Attending Physician: Admjonathan, [id number] Admitting Physician: Admtr, Ar8 Referring Physician: Admtr, Ar8 Allergies, Adverse Reactions, [...] 06/02/11 Recorded 1Result Comment: [facility] [id number] Medications citalopram 40 mg oral tablet 1 [...]
--- OUTSIDE RECORDS SUMMARY | 2023-01-03 12:54 | XMS_ITS | Continuity of Care Document ---
Author Name Unknown Organization [facility] Address [address] [place] [address]- Care Team Providers Care Podiatrist Orthopedic Name Role Phone Darius LOZANO, Luciano Primary Care Physician Encounter [facility] Date(s): 02/11/21 - 02/18/21 [facility] [address] [place] [address]- Encounter Diagnosis Preop examination(Discharge Diagnosis) - 02/11/21 IBS (irritable bowel syndrome)(Discharge Diagnosis) - 02/11/21 Attending Physician: Luciano Mccoy MD Referring Physician: Evan LOZANO Madeline Allergies, Adverse Reactions, Alerts Substance Reaction Severity [...] Recorded tetanus/diphtheria/pertussis, acel(Tdap) 06/02/11 Recorded 1Result Comment: [facility] [id number] Medications citalopram 40 mg oral tablet 40 [...] 10:13:00 EDT, Route to Pharmacy Electronically, [facility], 152, cm, 04/29/20 13:50:00 EST, Height Start Date: 08/11/20 Stop Date: 08/06/21 Status: Ordered lisinopril 10 mg oral tablet 1, tablet, By Mouth, Daily, # 90 tablet, Refills 1, Route to Pharmacy Electronically, [facility], 152, cm, 08/16/20 13:56:00 EDT, [...] Clinical Service Informant Preop examination Discharge Diagnosis 02/11/21 IBS (irritable bowel syndrome) Discharge Diagnosis 02/11/21 Vital Signs Most recent to oldest [Reference Range]: 1 Height 152 cm (02/11/21 10:56 AM) Weight 75.7 kg (02/11/21 10:56 AM) Oxygen Saturation [94-100 %] 96 % (02/11/21 10:56 AM) Pulse Rate [55-90 bpm] 84 bpm (02/11/21 10:56 AM) Body Mass Index [18.5-24.99] 32.76 *>HHI* (02/11/21 10:56 AM) Blood Pressure [90-138/55-84 mm Hg] 134/ 80mm Hg (02/11/21 10:56 AM) Mode of Delivery (Oxygen) Room air (02/11/21 10:56 AM) Blood pressure sites Arm, left (02/11/21 10:56 AM) Weight Obtained Via Standing scale (02/11/21 10:56 AM) Social History Social History Type Response Smoking Status Former smoker entered on: 12/02/14 Sex
--- OUTSIDE RECORDS SUMMARY | 2023-01-03 12:54 | XMS_ITS | Continuity of Care Document ---
Author Name Unknown Organization [facility] Address [address] [place] [address]- Care Team Providers Care Veterans' Counselor Name Role Phone Darius LOZANO, Luciano Primary Care Physician En[facility] Date(s): 04/20/20 - 05/20/20 [facility] [address] [place] [address]- Allergies, Adverse Reactions, Alerts Substance Reaction Severity Status sulfADIAZINE Active Dilaudid Active Immunizations Given and Recorded Vaccine Date Status Refusal Reason Influenza Virus Vaccine (oldterm) 01/15/20 Recorde d influenza virus vaccine, inactivated 1 12/20/18 Gi darryn pneumococcal 23-valent vaccine 03/12/15 Given 1Result Comment: [facility] [id number] Medications citalopram 40 mg oral tablet 40 mg, 1, tablet, By Mouth, Daily, # 90 tablet, Refills 3, Tot. Refills 3, Maintenance, 04/29/20 16:13:00 EST, Route to Pharmacy Electronically, [facility], Partial fill upon patient request [...]
--- OUTSIDE RECORDS SUMMARY | 2023-01-03 12:54 | XMS_ITS | Continuity of Care Document ---
Author Name Unknown Organization [facility] Address [address] [facility] [address] [place] [address]- Care Team Providers Care Budget Director Name Role Phone Jodi LOZANO, Taylor Primary Care Physician Encounter 10/02/22 - 10/09/22 [facility] [address], [facility] [address] [place] [address]- Attending Physician: Jacquie Rodgers Admitting Physician: Jacquie [...] Recorded tetanus/diphtheria/pertussis, acel(Tdap) 06/02/11 Recorded 1Result Comment: [facility] [id number] Medications Alprazolam By Mouth, Refills 0, Maintenance, [...] Exam Date Time Procedure Performing Provider Status 10/02/22 1:01 PM MM Digital Mammo Unilat Left Zhane Parks; Ibeth (Verified) Notes: (MM Digital Mammo Unilat Left) Reason For Exam: LT ABNORMAL MAMMO RESULT: MM Digital Mammo Unilat Left PROCEDURE: MM Digital Mammo Unilat Left INDICATION: Diagnostic mammography of the left breast based on recent screening recommendation. Personal history of right breast cancer lumpectomy and radiation in 2000. Patient is status post liver transplant, now with recurrent ascites which needs to be drained every2 weeks. COMPARISON: 09/28/2022, MRI of the breasts 05/23/2022 TECHNIQUE: Digital diagnostic mammogram consisting of magnification views of the left breast FINDINGS: There is diffuse skin thickening of the left breast, presumably relating to liver disease/ascites. In the left upper outer breast mid/posterior depth, there is a group of dense calcifications with apattern suggesting vascular etiology. These have increased from the 04/15/2021 exam. Would recommend6 month follow-up diagnostic mammography to confirm stability. IMPRESSION: Probably benign/vascular calcifications in the left upper outer breast mid/posterior depth. Would recommend 6 month follow-up diagnostic mammography to confirm stability. Diffuse skin thickening of the left breast presumably relates to liver disease. I had a discussion with the patient. RECOMMENDATION: Follow-up left diagnostic mammogram in 6 months BI-RADS: 3 (Probably Benign) Lay letter mailed to patient WSN: [id number] Ordering Physician: Jacquie Davis Dictated By: Selena Vitale MD Dictated Date/Time: 10/02/22 1:24 pm Reviewed By: Selena Vitale MD Signed By: Selena Vitale MD Signed Date/Time: 10/02/22 1:24 pm Transcribed By: GUERA Content Administrator Date/Time: 10/02/22 1:02 pm Birads: Social History Social History Type Response Smoking Status Former smoker entered on: 12/02/14 Sex Patient Care team information Care Team Personnel Name: Praveena Ladd RN Position: S RN Member Role: Primary Care Nurse Name: Lyric Adames RN Position: [facility] SN RN Member Role: Primary Care Nurse Name: Taylor Zapata MD Position: [facility] Physician - Primary Care Member Role: PCP Address: Address: [address] Name: Lesvia Louie RN Position: [facility] OB RN Member Role: Primary Care Nurse Care Team Related Persons Name: WARRENQUINTON Address: home [address] [place] [address] Name: SALINA KELLEY Address: [address] [place] [address]
[2023-01-03 13:19] VITALS: BMI 24.2
[2023-01-03 13:20] VITALS: BP 131/84; PULSE 99; RESP 20; TEMP 37.2; O2SAT 98
--- NOTE | 2023-01-03 13:30 | PC.NURSE ---
patient has fx right foot
[2023-01-03] MEDS: Lidocaine HCl 1 % MPF 5 ML VIAL SUBCUT (15:50)
[2023-01-03 15:54] VITALS: BP 126/74; PULSE 99; RESP 16; TEMP 36.6; O2SAT 98
[2023-01-03 16:00] VITALS: BP 133/79; PULSE 97; RESP 16; O2SAT 98
[2023-01-03 16:15] VITALS: BP 126/72; PULSE 99; RESP 16; O2SAT 98
[2023-01-03 16:30] VITALS: BP 118/70; PULSE 98; RESP 16; TEMP 36.8; O2SAT 98
== END 2023-01-03 16:50 | disposition home or self-care (01) ==
PROVIDERS: Radiology Diagnostic Radiology; PCP Internal Medicine; Visit Provider Internal Medicine Gastroenterology
DX: R18.8 Other ascites (principal); K76.9 Liver disease, unspecified; K50.10 Crohn's disease of large intestine without complications; K74.3 Primary biliary cirrhosis; K52.9 Noninfective gastroenteritis and colitis, unspecified; D64.9 Anemia, unspecified; I11.0 Hypertensive heart disease with heart failure; I50.9 Heart failure, unspecified; Z85.3 Personal history of malignant neoplasm of breast; Z90.710 Acquired absence of both cervix and uterus
CPT/HCPCS: 49083

== ENCOUNTER → 2023-01-03 15:10 | Outpatient (BNV) | payer MEDICARE, OTHER, SELFPAY | PROVIDERS: PCP Internal Medicine; Visit Provider Radiology Diagnostic Radiology | DX: R18.8 Other ascites (principal) | CPT/HCPCS: 49083 ==

== ENCOUNTER 2023-01-05 07:00 | Outpatient (REF) | payer MEDICARE, OTHER, SELFPAY ==
--- NOTE | ~2023-01-05 | XR_ITS ---
EXAMINATION: XR FOOT, RIGHT CLINICAL INFORMATION: Pain. COMPARISON: Prior radiographs, most recently 12/25/2022. TECHNIQUE: AP, lateral, and oblique views of the right foot. FINDINGS: A mildly displaced oblique fracture is redemonstrated of the mid to distal fourth metatarsal shaft. There is a comminuted transverse fracture noted of the proximal metaphysis of the fifth metatarsal. No significant new callus formation is seen. There is no dislocation or right ankle joint effusion. Boehler's angle is normal. There are small plantar and very small posterior calcaneal spurs. No focal soft tissue swelling, gas or foreign body is seen. There are atherosclerotic calcifications. XR/XR foot RT min 3V IMPRESSION: There is stable alignment of right fourth and fifth metatarsal fractures, without significant new callus formation noted.
== END 2023-01-05 07:01 | disposition home or self-care (01) ==
LOC: HO.HOSX 07:00
PROVIDERS: Visit Provider Physician Assistant
DX: M79.641 Pain in right hand (principal)
CPT/HCPCS: 73630

== ENCOUNTER 2023-01-05 08:18 | Outpatient (AMB) | payer MEDICARE, OTHER, SELFPAY ==
--- NOTE | 2023-01-05 08:29 | MHC.OFFVIS ---
Intake Intake Visit Reasons: Fc- Foot fracture, right Intake Note: Praveena is a 67 year old female who presents today for a evaluation for her right foot fx, DOI 12/25/22. Patient states while she was trying to get off the couch she stepped onto her right foot hard and her foot rolled leading to feel pain immediately. She states her ankle feels tight. Denies numbness and tingling. Allergies hydromorphone [From Dilaudid] Allergy (Severe, Verified 01/05/23 08:29) Hallucinations losartan Allergy (Intermediate, Verified 01/05/23 08:29) Facial Swelling Sulfa (Sulfonamide Antibiotics) Adverse Reaction (Severe, Verified 01/05/23 08:29) Rash HPI Fc- Foot fracture, right HPI Details 67-year-old female who presents in the office today, as a new patient, for an evaluation of right foot pain. The patient presented to the ED on 12/25/2022 status post getting off the couch and stepping down on her right foot causing it to roll. She denied falling to the ground. X-rays of the right foot were obtained. She was placed in a posterior splint, prescribed oxycodone 5 mg PO Q8H PRN, and referred to Orthopedics. While in the office today she states the ankle feels tight. She denies numbness or tingling. PFSH Medical History Ascites Anemia CHF (congestive heart failure) Pancytopenia Anxiety HTN (hypertension) Tremor Chronic diarrhea Primary biliary cholangitis Breast cancer Surgical History Transplant recipient Hx of colonoscopy Hx of esophagogastroduodenoscopy H/O: hysterectomy S/P hip replacement Liver transplant recipient Family History Mother CAD (coronary artery disease) Sister Ovarian cancer Mental health disorder Social History Household Members: Spouse Household Members Other:: , children Housing: House Do you presently have visiting nurse or other home services: No Alcohol intake: never Patient Tobacco Use Status: Never used Tobacco e-Cigarette/Vaping Use: Never Used Advance Directives Date on File: 12/15/22 service: No Current occupational status: retired Cognitive needs: No Hearing needs: No Vision needs: Yes Review of Systems Const All systems reviewed & are unremarkable except as noted in HPI and below Physical Exam Const General: cooperative and no acute distress Orientation/consciousness: patient oriented x3 Resp Effort & Inspection: normal respiratory effort and able to speak in complete sentences Cardio Rate: regular rate Peripheral pulses: Peripheral pulses 2+ throughout GI Palpation (GI): Soft to palpation Skin General skin exam: no rashes or lesions noted Lesions: no lesions Rashes: no rashes Neuro General: patient oriented x3 Extrem Other: Right foot: Ecchymosis at the base of all digits and extending to the great toe. Mild edema dorsal aspect of the right foot. Tenderness to palpation over the 4th metatarsal and base of the 5th at the fracture site. Able to dorsiflex and plantarflex. Sensation intact. Pedal pulse intact. Office Procedures Fracture Care Fracture Billing Code: Fracture Billing Code Assessment & Plan Assessment & Plan (1) Fracture of fourth metatarsal bone of right foot: Code(s): S92.341A - Displaced fracture of fourth metatarsal bone, right foot, initial encounter for closed fracture Qualifiers: Encounter type: initial encounter Fracture alignment: nondisplaced Fracture type: closed Qualified Code(s): S92.344A - Nondisplaced fracture of fourth metatarsal bone, right foot, initial encounter for closed fracture (2) Fracture of fifth metatarsal bone of right foot: Code(s): S92.351A - Displaced fracture of fifth metatarsal bone, right foot, initial encounter for closed fracture Qualifiers: Encounter type: initial encounter Fracture alignment: nondisplaced Fracture type: closed Qualified Code(s): S92.354A - Nondisplaced fracture of fifth metatarsal bone, right foot, initial encounter for closed fracture Plan Ms. Douglass is a 67-year-old female who presents in the office today, as a new patient, for an evaluation of right foot pain. The patient presented to the ED on 12/25/2022 status post getting off the couch and stepping down on her right foot causing it to roll. She denied falling to the ground. X-rays of the right foot were obtained. She was placed in a posterior splint, prescribed oxycodone 5 mg PO Q8H PRN, and referred to Orthopedics. While in the office today she states the ankle feels tight. She denies numbness or tingling. The patient was placed in a short walking boot, off the shelf, while in the office today. She may weight bear as tolerated. I educated the patient the importance of icing and elevation. She can take tylenol for pain, which she confirmed she was cleared per her provider at [facility]. Follow up will be in 4 weeks with repeat x-rays, or sooner if needed. X-rays of the right foot, obtained while in the office today and reviewed by me, Sabiha Hilton PA-C, redemonstrated a 4th metatarsal shaft fracture and a 5th metatarsal fracture. X-rays of the right foot, obtained on 12/25/2022, revealed: Fractures of the distal shaft of the fourth metatarsal and proximal fifth metatarsal. Orders: Orders XR foot RT min 3V Today M79.673 - Pain in unspecified foot Patient Instructions: Scribed for Sabiha Hilton PA-C by Lesvia [employer] medical device, on 01/05/2023 at 8:23 am, EST. Coding Level of Care Code New Pt Level 4 (71664) Diagnoses Closed nondisplaced fracture of fourth metatarsal bone of right foot, initial encounter S92.344A Encounter type: initial encounter Fracture alignment: nondisplaced Fracture type: closed Closed nondisplaced fracture of fifth metatarsal bone of right foot, initial encounter S92.354A Encounter type: initial encounter Fracture alignment: nondisplaced Fracture type: closed CPT Codes Fracture Care - Fracture Billing Code: Fracture Billing Code ([id number])
== END 2023-01-05 09:23 | disposition home or self-care (01) ==
PROVIDERS: PCP Internal Medicine; Visit Provider Physician Assistant
DX: S92.344A Nondisplaced fracture of fourth metatarsal bone, right foot, initial encounter for closed fracture (principal); S92.354A Nondisplaced fracture of fifth metatarsal bone, right foot, initial encounter for closed fracture
CPT/HCPCS: 99203; 99213

== ENCOUNTER 2023-01-17 11:43 | Day surgery (SDC) | payer MEDICARE, OTHER, SELFPAY ==
--- NOTE | ~2023-01-17 | US_ITS ---
Ultrasound paracentesis History: Ascites. Risks and benefits and possible complications were discussed with the patient and consent form was signed. A safe pocket of ascitic fluid was identified using ultrasound guidance, and the overlying skin was marked. The abdomen prepped and draped in sterile fashion. 1% lidocaine was used as a local anesthetic. Using ultrasound guidance, a 5 fr catheter was placed into the ascitic pocket. 4.4 liters of yellow fluid was removed passively. The catheter was then removed. A few factory representative images from before and after the examination were obtained. The procedure was performed by Gabriel Tai PA-C and supervised by Dr. Barros. US/US paracentesis abd w/image Impression: Ultrasound-guided paracentesis as described above. No immediate complications
[2023-01-17 12:10] VITALS: BMI 24.2
[2023-01-17 12:23] LABS: MANUAL DIFF FLAG NO
[2023-01-17 12:25] LABS: Basophils Percent Auto 0.5 % (0-2); Eosinophils Absolute Auto 0.1 X10*3/uL (0.0-0.4); Eosinophils Percent Auto 3.4 % (0-4); Hematocrit 35.1 % (37.0-47.0); Hemoglobin 11.3 g/dl (12.0-16.0); Imm Gran Abs Auto 0.02 X10*3/uL (0.00-0.03); Imm Gran Pct Auto 0.5 % (0.0-0.4); Lymphocytes Absolute Auto 0.7 X10*3/uL (1.2-4.9); Lymphocytes Percent Auto 15.6 % (20-40); Mean Corpuscular HGB Conc 32.2 g/dl (31.0-35.0); Mean Corpuscular Hemoglobin 30.2 pg (27.0-33.0); Mean Corpuscular Volume 93.9 fL (80.0-98.0); Mean Platelet Volume 9.6 fL (9.4-12.3); Monocytes Absolute Auto 0.5 X10*3/uL (0.1-1.2); Neutrophils Absolute Auto 2.8 x10*3/uL (2.0-8.3); Platelet Count 150 X10*3/uL (160-400); Red Blood Count 3.74 X10*6/uL (4.20-5.50); Red Cell Distribution Width 15.9 % (11.0-16.0); White Blood Count 4.2 X10*3/uL (4.8-10.8)
[2023-01-17 12:36] LABS: Anion Gap 13 (12-20); Blood Urea Nitrogen 9 mg/dL (9-16); Carbon Dioxide 23 mmol/L (22-29); Chloride 107 mmol/L (96-108); Sodium 140 mmol/L (135-145)
[2023-01-17 12:40] LABS: INTERNATIONAL NORM RATIO 1.2 (0.9-1.1); Prothrombin Time 14.5 SEC (11.1-13.3)
[2023-01-17 12:43] LABS: Partial Thromboplastin Time 36.8 SEC (26.0-36.4)
[2023-01-17] MEDS: Lidocaine HCl 1 % MPF 5 ML VIAL SUBCUT (14:07)
[2023-01-17 14:15] VITALS: BP 117/63; PULSE 91; RESP 14; TEMP 36.4; O2SAT 99
[2023-01-17 14:30] VITALS: BP 128/77; PULSE 89; RESP 16; TEMP 36.6; O2SAT 98
[2023-01-17 14:33] LABS: MN% 85.9 %; PMN% 14.1 %; RBC Peritoneal Fluid 0.002 X10*6/uL; WBC Peritoneal Fluid 0.397 X10*3/uL
[2023-01-17 14:45] VITALS: BP 132/75; PULSE 88; RESP 14; TEMP 36.3; O2SAT 99
[2023-01-17 16:14] LABS: Lymphocyte Peritoneal Fl 40 %; Monocytes Peritoneal Fl 35 %; Other Peritioneal Fl 6 %
[2023-01-17 16:15] LABS: BF Shift QC OK YES; Man Diluent Bkgrd OK YES; Neutrophils Peritoneal Fluid 19 %
== END 2023-01-17 14:53 | disposition home or self-care (01) ==
PROVIDERS: Physician Assistant Surgical; Radiology Diagnostic Radiology; PCP Internal Medicine; Visit Provider Internal Medicine Gastroenterology
DX: K76.9 Liver disease, unspecified (principal); R18.8 Other ascites; Z94.4 Liver transplant status; I11.0 Hypertensive heart disease with heart failure; I50.9 Heart failure, unspecified; Z79.899 Other long term (current) drug therapy; Z88.2 Allergy status to sulfonamides; Z88.8 Allergy status to other drugs, medicaments and biological substances
CPT/HCPCS: 36415; 49083; 80051; 84520; 85025; 85610; 85730; 89051

== ENCOUNTER → 2023-01-17 13:30 | Outpatient (BNV) | payer MEDICARE, OTHER, SELFPAY | PROVIDERS: PCP Internal Medicine; Visit Provider Radiology Diagnostic Radiology | DX: R18.8 Other ascites (principal) | CPT/HCPCS: 49083 ==

== ENCOUNTER 2023-01-22 09:18 | Outpatient (REF) | payer MEDICARE, OTHER, SELFPAY ==
[2023-01-22 10:54] LABS: INTERNATIONAL NORM RATIO 1.2 (0.9-1.1); Prothrombin Time 14.6 SEC (11.1-13.3)
[2023-01-22 11:26] LABS: Alanine Aminotransferase 34 U/L (0-31); Albumin Level 2.8 g/dL (3.5-5.0); Alkaline Phosphatase 249 U/L (39-117); Anion Gap 12 (12-20); Aspartate Amino Transferase 45 U/L (5-31); Bilirubin Direct 1.5 mg/dL (0.0-0.5); Blood Urea Nitrogen 12 mg/dL (9-16); Carbon Dioxide 24 mmol/L (22-29); Chloride 109 mmol/L (96-108); Estimated Glomerular Filt Rate > 60; Glucose Random 94 mg/dL (60-115); Potassium 3.6 mmol/L (3.3-5.1); Sodium 141 mmol/L (135-145); Total Protein 6.4 g/dL (6.5-8.0)
== END 2023-01-22 09:19 | disposition home or self-care (01) ==
LOC: HO.LABR 09:18
PROVIDERS: Internal Medicine Gastroenterology; PCP Internal Medicine; Visit Provider Internal Medicine Gastroenterology
DX: R94.5 Abnormal results of liver function studies (principal)
CPT/HCPCS: 36415; 80048; 80076; 85610

== ENCOUNTER 2023-02-01 07:02 | Day surgery (SDC) | payer MEDICARE, OTHER, SELFPAY ==
[2023-01-30 15:57] VITALS: BMI 25.4
--- NOTE | 2023-01-31 12:17 | HO.ANESPROP2 ---
Documented by User: Shyann Griffin NP 01/31/23 12:22 HPI - Anesthesia Eval Consult details Narrative: 67yo F for Upper Endoscopy s/p liver transplant 2015 d/t primary biliary cirrhosis s/p Paracentesis 01/17/23 with 4.4L removed PMFSH Active Problems Active Problems: All Active Problems (Updated 01/05/23 @ 09:23 by Lesvia Espinal) Fracture of fifth metatarsal bone of right foot (Acute) Fracture of fourth metatarsal bone of right foot (Acute) Encephalomalacia on imaging study (Acute) Abdominal ascites (Acute) Postmenopausal (Acute) Aspiration pneumonitis (Acute) Acute respiratory failure with hypoxia (Acute) Allergic reaction caused by a drug (Acute) Neck pain (Acute) Pneumonia (Acute) Pleural effusion (Acute) Ascites (Acute) Diarrhea (Acute) Swollen breast (Acute) Thrombocytopenia (Chronic) Crohn's colitis (Acute) Malnutrition (Acute) Contusion of left elbow (Acute) Annual physical exam (Acute) Vitamin B6 deficiency (Acute) Primary biliary cholangitis (Acute) Past Medical History Medical History Shakes Frequent falls Ascites Anemia CHF (congestive heart failure) Pancytopenia Anxiety HTN (hypertension) Tremor Chronic diarrhea Primary biliary cholangitis Breast cancer Family History Family History Mother CAD (coronary artery disease) Sister Ovarian cancer Mental health disorder Family history of problems with anesthesia: No Surgical History Surgical History H/O wrist surgery Transplant recipient Hx of colonoscopy Hx of esophagogastroduodenoscopy H/O: hysterectomy S/P hip replacement Liver transplant recipient History of Problems with Anesthesia: No Social History Social History Household Members: Spouse Household Members Other:: , children Housing: House Do you presently have visiting nurse or other home services: No Alcohol intake: never Patient Tobacco Use Status: Former Tobacco user Tobacco use type: Cigarette e-Cigarette/Vaping Use: Never Used Use of substances other than those prescribed or required for medical reasons: No Are you DNR?: No Advance Directives: No Advance Directives Information Provided: Yes Advance Directives Date on File: 12/15/22 service: No Current occupational status: retired Cognitive needs: No Hearing needs: No Vision needs: Yes Meds Allergies Allergy/AdvReac Type Severity Reaction Status Date / Time hydromorphone [From Dilaudid] Allergy Severe Hallucinati Verified 02/01/23 07:12 ons losartan Allergy Intermediate Facial Verified 02/01/23 07:12 Swelling Sulfa (Sulfonamide AdvReac Severe Rash Verified 02/01/23 07:12 Antibiotics) Home Medications Medication Instructions Recorded Confirmed Last Taken Type ursodiol 500 mg tablet 1 tab PO BID 11/02/21 02/01/23 02/01/23 History cholecalciferol (vitamin D3) 25 25 mcg PO DAILY 04/25/22 02/01/23 01/16/23 History mcg (1,000 unit) capsule (Vitamin D3) tacrolimus 0.5 mg capsule, 0.5 mg PO Q12H 08/22/22 02/01/23 02/01/23 History immediate-release alprazolam 1 mg tablet 1 mg PO DAILY PRN Anxiety 09/04/22 02/01/23 01/17/23 History pyridoxine (vitamin B6) 100 mg 100 mg PO BID 09/04/22 02/01/23 11/21/22 History tablet vitamin A 10,000 unit tablet 10,000 unit PO DAILY 09/04/22 02/01/23 01/16/23 History magnesium glycinate 100 mg PO DAILY 11/07/22 02/01/23 01/16/23 History bupropion HCl 75 mg tablet 300 mg PO DAILY 12/15/22 02/01/23 01/17/23 History colesevelam 625 mg tablet 1,875 mg PO BID 12/15/22 02/01/23 01/17/23 History vedolizumab 300 mg intravenous 300 mg IV Q8W 02/01/23 02/01/23 Unknown History solution (Entyvio) Exam Exam Date and Time: January 31, 2023 1217 Height,Weight and Vital Signs: Height 4 ft 11.5 in Weight 57.975 kg Pertinent Lab Results Pertinent Lab Results: Laboratory Tests 01/17/23 01/22/23 12:17 09:41 WBC 4.2 L Hgb 11.3 L Hct 35.1 L Plt Count 150 L Sodium 141 Potassium 3.6 Chloride 109 H Carbon Dioxide 24 BUN 12 Creatinine 0.72 Narrative Narrative: EKG 12/2022 Vent. Rate : 093 BPM Atrial Rate : 093 BPM P-R Int : 154 ms QRS Dur : 078 ms QT Int : 374 ms P-R-T Axes : 025 -16 011 degrees QTc Int : 465 ms Normal sinus rhythm Low voltage QRS Nonspecific T wave abnormality Septal infarct , age undetermined Abnormal ECG When compared with ECG of 03-FEB-2022 20:28, Nonspecific T wave abnormality is now Present ECHO 01/2022 Conclusions: - Normal left ventricular size and systolic function. There is mildly increased left ventricular wall thickness. The visually estimated ejection fraction is between 60-65%. - Normal right ventricular cavity size and systolic function. - Both atria are normal in size. - There is mild dilatation of the ascending aorta measuring 3.40 cm. Assessment and Plan Assessment Anesthesia Assessment: Chart Reviewed Final Anesthetic Review Family History of Problems with Anesthesia: No History of Problems with Anesthesia: No Documented by User: Kristina Kwok MD 02/01/23 07:38 PMFSH Past Medical History Medical History Shakes Frequent falls Ascites Anemia CHF (congestive heart failure) Pancytopenia Anxiety HTN (hypertension) Tremor Chronic diarrhea Primary biliary cholangitis Breast cancer Family History Family History Mother CAD (coronary artery disease) Sister Ovarian cancer Mental health disorder Surgical History Surgical History H/O wrist surgery Transplant recipient Hx of colonoscopy Hx of esophagogastroduodenoscopy H/O: hysterectomy S/P hip replacement Liver transplant recipient Social History Social History Household Members: Spouse Household Members Other:: , children Housing: House Do you presently have visiting nurse or other home services: No Alcohol intake: never Patient Tobacco Use Status: Former Tobacco user Tobacco use type: Cigarette e-Cigarette/Vaping Use: Never Used Use of substances other than those prescribed or required for medical reasons: No Are you DNR?: No Advance Directives: No Advance Directives Information Provided: Yes Advance Directives Date on File: 12/15/22 service: No Current occupational status: retired Cognitive needs: No Hearing needs: No Vision needs: Yes Meds Allergies Allergy/AdvReac Type Severity Reaction Status Date / Time hydromorphone [From Dilaudid] Allergy Severe Hallucinati Verified 02/01/23 07:12 ons losartan Allergy Intermediate Facial Verified 02/01/23 07:12 Swelling Sulfa (Sulfonamide AdvReac Severe Rash Verified 02/01/23 07:12 Antibiotics) Home Medications Medication Instructions Recorded Confirmed Last Taken Type ursodiol 500 mg tablet 1 tab PO BID 11/02/21 02/01/23 02/01/23 History cholecalciferol (vitamin D3) 25 25 mcg PO DAILY 04/25/22 02/01/23 01/16/23 History mcg (1,000 unit) capsule (Vitamin D3) tacrolimus 0.5 mg capsule, 0.5 mg PO Q12H 08/22/22 02/01/23 02/01/23 History immediate-release alprazolam 1 mg tablet 1 mg PO DAILY PRN Anxiety 09/04/22 02/01/23 01/17/23 History pyridoxine (vitamin B6) 100 mg 100 mg PO BID 09/04/22 02/01/23 11/21/22 History tablet vitamin A 10,000 unit tablet 10,000 unit PO DAILY 09/04/22 02/01/23 01/16/23 History magnesium glycinate 100 mg PO DAILY 11/07/22 02/01/23 01/16/23 History bupropion HCl 75 mg tablet 300 mg PO DAILY 12/15/22 02/01/23 01/17/23 History colesevelam 625 mg tablet 1,875 mg PO BID 12/15/22 02/01/23 01/17/23 History vedolizumab 300 mg intravenous 300 mg IV Q8W 02/01/23 02/01/23 Unknown History solution (Entyvio) Exam Airway Mallampati Class: II TM Dist: >3cm Neck ROM: Full Loose/Missing/Broken Teeth: No Heart: RRR Lungs: CTA Assessment and Plan Assessment Anesthesia Assessment: Anesthesia Plan Discussed Final Anesthetic Review NPO: Yes ASA Class: IV Final Preanesthetic Review: Meds/Allgs Chart Reviewed, Consent Obtained/Reviewed and Anes Risks/Benef Reviewed Patient Risk: High Procedure Risk: Intermediate Anesthetic Plan Anesthetic Plan: MAC: Disposition: Standard PACU
[2023-02-01 07:16] VITALS: BMI 23.8
[2023-02-01 07:23] VITALS: BP 134/84; PULSE 95; RESP 16; TEMP 37.1; O2SAT 99
[2023-02-01] MEDS: Lactated Ringers 1,000 ML 50 ML IVCONT (07:40)
--- NOTE | 2023-02-01 08:52 | MHC.SHP ---
Pre-Procedural Eval Section A Date of Service: 02/01/23 Section B Chief Complaint: Esophageal varices without bleeding Details of Present Illness: also c/o worsening diarrhea, on entyvio, no blood Relevant Family History (Specify if Yes): No Relevant Social History: None Present Medications: see Short Stay Collaborative assessment Medical History: Significant History (Ascites Anemia CHF (congestive heart failure) Pancytopenia Anxiety HTN (hypertension) Tremor Chronic diarrhea Primary biliary cholangitis Breast cancer) History of Previous Operations: Relevant previous surgery/procedure and date(s) (liver transplant) Allergies: Allergies Allergy/AdvReac Type Severity Reaction Status Date / Time hydromorphone [From Dilaudid] Allergy Severe Hallucinati Verified 02/01/23 07:12 ons losartan Allergy Intermediate Facial Verified 02/01/23 07:12 Swelling Sulfa (Sulfonamide AdvReac Severe Rash Verified 02/01/23 07:12 Antibiotics) Review of Systems Sugical H&P ROS: Negative: Constitution, Cardiovascular, Respiratory, Neurological, Psychiatric, Hem-Onc, Allergic/Immunologic, Gastrointestinal, Genitourinary, Musculoskeletal, Integumentary, Endocrine and Eyes/Ears/Nose/Throat Exam Surgical H&P Exam: Normal: HEENT, Normal: Heart, Normal: Lungs, Normal: Extremities, Normal: Abdomen, Normal: Skin and Normal: Neurological Plan Diagnosis/Plan: Unchanged I have reviewed the history and physical and performed a pertinent physical examination on my patient. No changes have occurred unless specified. adding sigmodioscopy for evaluation of diarrhea, bx and stool samples Time Spent With Patient Time: Total time managing care of this patient today ____ minutes.
--- NOTE | 2023-02-01 08:54 | W.PM.OPN ---
Operative Note Operative Note Date of Service: 02/01/23 Narrative: Operative Information Procedure Description: EGD, sigmoidoscopy Indication: variceal screening, diarrhea Anesthesia: MAC FLEXIBLE TRANSORAL UPPER GASTROINTESTINAL ENDOSCOPY AND Sigmoidoscopy UPPER ENDOSCOPY Consent: Indications for the procedure and potential complications of bleeding, perforation, reaction to medications and missed diagnosis were discussed with the patient and informed consent was obtained. Instrument: Olympus GIF H 190 J mid size upper endoscope Monitoring: Vital signs and clinical assessment, continuous EKG monitoring, Pulse oximetry, Carbon Dioxide monitoring and blood pressure monitoring were done throughout the procedure. Procedure: The patient was placed in the left lateral decubitis position and pre-procedure medications were administered and a bite block was placed. The endoscope was inserted into the mouth and advanced under direct vision to the third part of duodenum. A careful inspection was made as the upper endoscope was withdrawn including a retroflexed examination of the proximal stomach; Findings and interventions are described below. Findings: Larynx:normal Esophagus: GE junction at 35 cm, diaphragm hiatus at 35 cm, small grade I varices x 2 cords noted which collapsed with air insufflation Stomach: mosaic pattern consistent with portal hypertensive gastropathy. Biopsies were obtained. Grade 2 flap valve on retroflexed examination of the cardia. Duodenum: Normal bulb and descending duodenum, bx taken Intervention: Biopsies as noted above Sigmoidoscopy: Procedure: The patient was placed in the left lateral decubitis position and pre-procedure medications were administered. After a digital rectal examination of the ano-rectum, the video scope was inserted into the rectum and advanced through the descending colon. The colonoscope was slowly withdrawn in a retrograde panoramic fashion and the colon mucosa was carefully examined including a retroflexed view of the rectum. Findings and interventions are described below. Procedure Difficulty:easy Findings: small pebble like solids stools seen Descending Colon:normal Sigmoid Colon: normal, bx taken, Rectum: Retroflexion with small internal hemorrhoids, grade I Anorectum - normal Colon preparation: adequate Impression and Post Procedure Diagnosis: Endoscopy Findings: portal hypertensive gastropathy small varices Sigmoidoscopy Findings: Internal hemorrhoids Plan: Await Pathology results Repeat EGD in 1 yr or earlier if clinically indicated High fiber diet leaflet avoid straining at stool, epsom salts and sitz bath, anusol supps or cream solid stools go against c diff, or infectious, inflammatory process, plus mucosa looks normal Above findings were reviewed with the patient and relevant handouts were provided if indicated.
[2023-02-01 09:25] VITALS: BP 97/61; PULSE 97; RESP 18; TEMP 36.2; O2SAT 100
[2023-02-01 09:39] VITALS: BP 120/75; PULSE 96; RESP 16; TEMP 36.2; O2SAT 98
[2023-02-01 09:54] VITALS: RESP 16; TEMP 36.2
== END 2023-02-01 10:24 | disposition home or self-care (01) ==
PROVIDERS: PCP Internal Medicine; Visit Provider Internal Medicine Gastroenterology
PROC: 0DJ08ZZ Inspection of Upper Intestinal Tract, Via Natural or Artificial Opening Endoscopic (ICD-10-PCS; CPT 43235; principal; 2023-02-01 09:20)
DX: K76.6 Portal hypertension (principal); K31.89 Other diseases of stomach and duodenum; I85.00 Esophageal varices without bleeding; K64.0 First degree hemorrhoids; R19.7 Diarrhea, unspecified; K74.3 Primary biliary cirrhosis; I11.0 Hypertensive heart disease with heart failure; I50.9 Heart failure, unspecified; D64.9 Anemia, unspecified; J96.01 Acute respiratory failure with hypoxia; Z90.710 Acquired absence of both cervix and uterus; Z87.891 Personal history of nicotine dependence; Z79.899 Other long term (current) drug therapy
CPT/HCPCS: 43239; 45331; 83631; 88305; 88342

== ENCOUNTER → 2023-02-01 07:02 | Outpatient (BNV) | payer MEDICARE, OTHER, SELFPAY | PROVIDERS: PCP Internal Medicine; Visit Provider Internal Medicine Gastroenterology | DX: I85.00 Esophageal varices without bleeding (principal); K31.89 Other diseases of stomach and duodenum; R19.7 Diarrhea, unspecified; K64.0 First degree hemorrhoids | CPT/HCPCS: 43239; 45380 ==

== ENCOUNTER 2023-02-02 09:44 | Outpatient (AMB) | payer MEDICARE, OTHER, SELFPAY ==
--- NOTE | 2023-02-02 09:48 | A.OFFVIS_ITS ---
Intake Intake Visit Reasons: OV-Foot fracture, right-F/U Intake Note: Praveena is a 67 year old female who presents today for a evaluation for her right foot fx, DOI 12/25/22. Patient states she is doing well with occasional discomfort. She reports when she is over walking she feels a little bit on pain in her foot. Denies numbness and tingling. Allergies hydromorphone [From Dilaudid] Allergy (Severe, Verified 02/02/23 10:00) Hallucinations losartan Allergy (Intermediate, Verified 02/02/23 10:00) Facial Swelling Sulfa (Sulfonamide Antibiotics) Adverse Reaction (Severe, Verified 02/02/23 10:00) Rash HPI OV-Foot fracture, right-F/U HPI Details 67-year-old female who presents in the o ffice today for a follow up of a 4th and 5th metatarsal fracture, which occurred on 12/25/2022 status post getting off the couch and stepping down on her right foot causing it to roll. While in the office today she states she is doing well with occasional discomfort. She reports pain with over use of the foot. She denies numbness or tingling. She reports she is currently on a waiting list for a new liver. [facility] Medical History Shakes Frequent falls Ascites Anemia CHF (congestive heart failure) Pancytopenia Anxiety HTN (hypertension) Tremor Chronic diarrhea Primary biliary cholangitis Breast cancer Surgical History H/O wrist surgery Transplant recipient Hx of colonoscopy Hx of esophagogastroduodenoscopy H/O: hysterectomy S/P hip replacement Liver transplant recipient Family History Mother CAD (coronary artery disease) Sister Ovarian cancer Mental health disorder Social History Household Members: Spouse Household Members Other:: , children Housing: House Do you presently have visiting nurse or other home services: No Alcohol intake: never Patient Tobacco Use Status: Former Tobacco user Tobacco use type: Cigarette e-Cigarette/Vaping Use: Never Used Advance Directives Date on File: 12/15/22 service: No Current occupational status: retired Cognitive needs: No Hearing needs: No Vision needs: Yes Review of Systems Const All systems reviewed & are unremarkable except as noted in HPI and below Physical Exam Const General: cooperative, healthy appearing and no acute distress Resp Effort & Inspection: normal respiratory effort and able to speak in complete sentences Cardio Rate: regular rate Peripheral pulses: Peripheral pulses 2+ throughout GI Palpation (GI): Soft to palpation Skin Lesions: no lesions Rashes: no rashes Extrem Other: Right foot: Ecchymosis at the base of all digits and extending to the great toe. Mild edema dorsal aspect of the right foot. Tenderness to palpation over the 4th metatarsal and base of the 5th at the fracture site. Able to dorsiflex and plantarflex. Sensation intact. Pedal pulse intact. Assessment & Plan Assessment & Plan (1) Fracture of fourth metatarsal bone of right foot: Code(s): S92.341A - Displaced fracture of fourth metatarsal bone, right foot, initial encounter for closed fracture Qualifiers: Encounter type: initial encounter Fracture alignment: nondisplaced Fracture type: closed Qualified Code(s): S92.344A - Nondisplaced fracture of fourth metatarsal bone, right foot, initial encounter for closed fracture (2) Fracture of fifth metatarsal bone of right foot: Code(s): S92.351A - Displaced fracture of fifth metatarsal bone, right foot, initial encounter for closed fracture Qualifiers: Encounter type: initial encounter Fracture alignment: nondisplaced Fracture type: closed Qualified Code(s): S92.354A - Nondisplaced fracture of fifth metatarsal bone, right foot, initial encounter for closed fracture Plan Ms. Douglass is a 67-year-old female who presents in the office today for a follow up of a 4th and 5th metatarsal fracture, which occurred on 12/25/2022 status post getting off the couch and stepping down on her right foot causing it to roll. While in the office today she states she is doing well with occasional discomfort. She reports pain with over use of the foot. She denies numbness or tingling. She reports she is currently on a waiting list for a new liver. I discussed with the patient that bone takes 6-8 weeks to heal. She may continue to weight bear as tolerated. She can wear the boot for another week and then begin to wean out of the boot while at home. If it is bad weather or out at the store she is able to wear the boot for protection. She can continue to ice the foot to aid with edema. She is able to take anti-inflammatory. I offered the patient physical therapy while in the office today but due to her being on the transplant waiting list and how quickly she could be called away she would like to defer at this time. Follow up will be in 4 weeks for a final x-ray, or sooner if needed. X-rays of the right foot which were obtained while in the office today and were reviewed by me, Sabiha Hilton PA-C, revealed routine healing of a 4th and 5th metatarsal fracture. Orders: Orders XR foot RT min 3V Today M79.673 - Pain in unspecified foot Patient Instructions: Scribed for Sabiha Hilton PA-C by Lesvia Espinal biomedical engineering technician, on 02/02/2023 at 9:45 am, EST. Coding Level of Care Code Global (79769) Diagnoses Closed nondisplaced fracture of fourth metatarsal bone of right foot, initial encounter S92.344A Encounter type: initial encounter Fracture alignment: nondisplaced Fracture type: closed Closed nondisplaced fracture of fifth metatarsal bone of right foot, initial encounter S92.354A Encounter type: initial encounter Fracture alignment: nondisplaced Fracture type: closed
== END 2023-02-02 10:31 | disposition home or self-care (01) ==
PROVIDERS: PCP Internal Medicine; Visit Provider Physician Assistant
DX: S92.344A Nondisplaced fracture of fourth metatarsal bone, right foot, initial encounter for closed fracture (principal); S92.354A Nondisplaced fracture of fifth metatarsal bone, right foot, initial encounter for closed fracture
CPT/HCPCS: 99213

== ENCOUNTER 2023-02-02 12:47 | Outpatient (REF) | payer MEDICARE, OTHER, SELFPAY ==
--- NOTE | ~2023-02-02 | XR_ITS ---
EXAMINATION: XR FOOT, RIGHT CLINICAL INFORMATION: Right foot pain COMPARISON: Right foot x-rays on 01/05/2023 TECHNIQUE: AP, lateral, and oblique views of the right foot. FINDINGS: BONES: Persistent oblique vertical fracture distal right fourth metatarsal shaft is seen with mild medial displacement. Transverse nondisplaced fracture base of right fifth metatarsal tuberosity is seen. Prominent plantar and tiny dorsal calcaneal spurs are present. JOINTS: Alignment of joints is normal. SOFT TISSUE: Soft tissue is normal. No radiopaque foreign body or abnormal air collection is seen. XR/XR foot RT min 3V IMPRESSION: 1. Unchanged oblique vertical fracture distal shaft of right fourth metatarsal with mild medial displacement, without signs of bony union. 2. Unchanged nondisplaced fracture base of right fifth metatarsal tuberosity without signs of bony union. 3. Unchanged dorsal and plantar calcaneal spurs.
== END 2023-02-02 12:48 | disposition home or self-care (01) ==
LOC: HO.HOSX 12:47
PROVIDERS: Visit Provider Physician Assistant
DX: S92.344A Nondisplaced fracture of fourth metatarsal bone, right foot, initial encounter for closed fracture (principal); S92.354A Nondisplaced fracture of fifth metatarsal bone, right foot, initial encounter for closed fracture
CPT/HCPCS: 73630; 99212

== ENCOUNTER 2023-02-06 08:50 | Day surgery (SDC) | payer MEDICARE, OTHER, SELFPAY ==
--- NOTE | ~2023-02-06 | US_ITS ---
ULTRASOUND PARACENTESIS HISTORY: Ascites. Risks and benefits and possible complications were discussed with the patient and consent form was signed. A safe pocket of ascitic fluid was identified using ultrasound guidance, and the overlying skin marked, prepped and draped in sterile fashion. 1% lidocaine was used anesthetize the skin, subcutaneous tissues, and peritoneal lining. Using ultrasound guidance, a 5 fr catheter was placed into the ascitic pocket. 4.4 liters of yellow fluid was removed passively. The catheter was then removed. A few collections representative images from before and after the examination were obtained. The procedure was performed by Gabriel Tai PA-C and supervised by Dr. Agarwal. US/US paracentesis abd w/image IMPRESSION: Ultrasound-guided paracentesis as described above. 4.4 L of yellowish fluid drained passively from the left lower quadrant. No immediate complications
[2023-02-06 08:56] VITALS: BP 157/86; PULSE 100; RESP 18; TEMP 37; O2SAT 98
[2023-02-06 09:15] VITALS: BMI 25.2
[2023-02-06 11:30] VITALS: BP 122/74; PULSE 101; RESP 20; TEMP 36.6; O2SAT 99
[2023-02-06] MEDS: Lidocaine HCl 1 % MPF 5 ML VIAL SUBCUT (11:37)
[2023-02-06 11:45] VITALS: BP 132/78; PULSE 97; RESP 20; O2SAT 99
[2023-02-06 12:00] VITALS: BP 130/68; PULSE 98; RESP 20; TEMP 36.6; O2SAT 99
== END 2023-02-06 12:07 | disposition home or self-care (01) ==
LOC: HO.SSS 08:50
PROVIDERS: PCP Internal Medicine; Visit Provider Radiology Vascular & Interventional Radiology
DX: R18.8 Other ascites (principal); K74.3 Primary biliary cirrhosis; Z94.4 Liver transplant status; I11.0 Hypertensive heart disease with heart failure; I50.9 Heart failure, unspecified; K50.10 Crohn's disease of large intestine without complications; D64.9 Anemia, unspecified; Z85.3 Personal history of malignant neoplasm of breast; Z87.891 Personal history of nicotine dependence; Z88.2 Allergy status to sulfonamides; Z88.8 Allergy status to other drugs, medicaments and biological substances
CPT/HCPCS: 49083

== ENCOUNTER → 2023-02-06 10:30 | Outpatient (BNV) | payer MEDICARE, OTHER, SELFPAY | PROVIDERS: PCP Internal Medicine; Visit Provider Radiology Diagnostic Radiology | DX: R18.8 Other ascites (principal) | CPT/HCPCS: 49083 ==

== ENCOUNTER 2023-02-19 09:01 | Day surgery (SDC) | payer MEDICARE, OTHER, SELFPAY ==
--- NOTE | ~2023-02-19 | US_ITS ---
ULTRASOUND GUIDED PARACENTESIS HISTORY: Ascites. Risks and benefits and possible complications were discussed with the patient and consent form was signed. A safe pocket of ascitic fluid was identified using ultrasound guidance, and the overlying skin was marked, prepped and draped in sterile fashion. 1% lidocaine was used as a local anesthetic for the skin, subcutaneous tissues, and parietal peritoneum. Using ultrasound guidance, a 5 fr catheter was placed into the ascitic pocket. 5.0 liters of yellow fluid was removed passively. The catheter was then removed. A few branch sales and service representative images from before and after the examination were obtained. The procedure was performed by Gabriel Tai PA-C and supervised by Dr. Agarwal. US/US paracentesis abd w/image IMPRESSION: Ultrasound-guided paracentesis as described above. No immediate complications
[2023-02-19 09:32] VITALS: BMI 25.6
[2023-02-19 09:34] VITALS: BP 136/90; PULSE 104; RESP 18; TEMP 36.7; O2SAT 98
--- NOTE | 2023-02-19 09:37 | PC.NURSE ---
Author spoke with Gabriel KAPOOR and updated him that patient arrived c/o congestion, yellow sputum with coughing, and a sore throat that resolved over the weekend. afebrile and lcta in sss. productive cough noted often. Gabriel stated that patient could have procedure as long as afebrile, no hypo/hypertension. Radiology department updated that patient will have procedure today.
[2023-02-19 11:20] VITALS: BP 114/67; PULSE 96; RESP 18; TEMP 37.6; O2SAT 99
[2023-02-19 11:35] VITALS: BP 136/91; PULSE 95; RESP 18; O2SAT 99
[2023-02-19] MEDS: Lidocaine HCl 1 % MPF 5 ML VIAL 15 ML SUBCUT (11:35)
[2023-02-19 11:50] VITALS: BP 111/72; PULSE 93; RESP 18; TEMP 36.9; O2SAT 99
== END 2023-02-19 11:56 | disposition home or self-care (01) ==
LOC: HO.SSS 09:02
PROVIDERS: PCP Internal Medicine; Visit Provider Radiology Vascular & Interventional Radiology
DX: R18.8 Other ascites (principal); K74.3 Primary biliary cirrhosis; D64.9 Anemia, unspecified; I11.0 Hypertensive heart disease with heart failure; I50.9 Heart failure, unspecified; K50.10 Crohn's disease of large intestine without complications; Z94.4 Liver transplant status; Z88.5 Allergy status to narcotic agent; Z88.8 Allergy status to other drugs, medicaments and biological substances; Z88.2 Allergy status to sulfonamides
CPT/HCPCS: 49083

== ENCOUNTER → 2023-02-19 10:30 | Outpatient (BNV) | payer MEDICARE, OTHER, SELFPAY | PROVIDERS: PCP Internal Medicine; Visit Provider Radiology Diagnostic Radiology | DX: R18.8 Other ascites (principal) | CPT/HCPCS: 49083 ==

== ENCOUNTER 2023-02-22 11:14 | Emergency (ER) | payer MEDICARE, OTHER, SELFPAY ==
--- NOTE | ~2023-02-22 | XR_ITS ---
EXAMINATION: XR CHEST CLINICAL INFORMATION: Productive cough COMPARISON: Chest x-ray 6 04/14/2022 TECHNIQUE: 2 views of the chest were obtained. FINDINGS: The lungs are somewhat expanded with bandlike atelectasis right middle lobe with loss of right lung volume and elevated right hemidiaphragm. No acute pneumonic consolidation seen. The left lung is clear. There is mild blunting of right CP angle question pleural effusion versus thickening. The heart size and pulmonary vascularity is normal. No gross bony abnormality seen. XR/XR chest 2V IMPRESSION: Right middle lobe atelectasis with loss of right lung volume and probable small right pleural effusion/thickening. There is no suggestion for acute consolidation.
[2023-02-22 11:17] VITALS: BP 113/76; PULSE 104; RESP 18; TEMP 37; O2SAT 98; BMI 23.4
--- NOTE | 2023-02-22 11:20 | ED_ITS ---
HPI - General Adult General Chief complaint: Upper Respiratory Symptoms Stated complaint: Cough/Ear pain Time Seen by Provider: 02/22/23 11:48 Source: patient Mode of arrival: ambulatory Limitations: no limitations History of Present Illness HPI narrative: 67 yold female with pmh of CHF, Pneumonia, Primary biliary CHolangitis, Ascites, awaiting Liver transplant presents to the ED for coughing with yellow phleghm, bilateral ear pain, head cold, and bodyaches for one week. patient denies any chest pain, shortness of breath, leg swelling, recent long travel, calf pain, pleurisy, or recent surgery. patient is due for a new liver transplant. Patient denies any abdominal pain. Related Data Home Medications Medication Instructions Recorded Confirmed ursodiol 500 mg tablet 1 tab PO BID 11/02/21 02/19/23 cholecalciferol (vitamin D3) 25 25 mcg PO DAILY 04/25/22 02/01/23 mcg (1,000 unit) capsule (Vitamin D3) tacrolimus 0.5 mg capsule, 0.5 mg PO Q12H 08/22/22 02/19/23 immediate-release alprazolam 1 mg tablet 1 mg PO DAILY PRN Anxiety 09/04/22 02/01/23 pyridoxine (vitamin B6) 100 mg 100 mg PO BID 09/04/22 02/01/23 tablet vitamin A 10,000 unit tablet 10,000 unit PO DAILY 09/04/22 02/01/23 magnesium glycinate 100 mg PO DAILY 11/07/22 02/01/23 bupropion HCl 75 mg tablet 300 mg PO DAILY 12/15/22 02/19/23 colesevelam 625 mg tablet 1,875 mg PO BID 12/15/22 02/01/23 vedolizumab 300 mg intravenous 300 mg IV Q8W 02/01/23 02/01/23 solution (Entyvio) Previous Rx's Medication Instructions Recorded cyanocobalamin (vitamin B-12) 1,000 mcg PO DAILY #90 tabs 04/25/22 1,000 mcg tablet (Vitamin B-12) pantoprazole 40 mg tablet,delayed 40 mg PO QAM #30 tabs 08/02/22 release gabapentin 300 mg capsule 600 mg (2 x 300 mg) PO BEDTIME 09/21/22 #180 caps ondansetron 4 mg disintegrating 4 mg PO Q8H PRN nausea and 10/09/22 tablet vomiting #90 tabs furosemide 40 mg tablet 40 mg PO DAILY #90 tabs 11/07/22 zinc acetate 50 mg (zinc) capsule 50 mg PO DAILY #90 caps 11/29/22 (Galzin) asim (Ultra-Light Rollator misc) #1 ea 12/16/22 alendronate 70 mg tablet (Fosamax) 70 mg PO QWEEK #14 tabs 02/08/23 albuterol sulfate 90 mcg/actuation 2 puff inhalation Q4-6H PRN 02/22/23 aerosol inhaler shortness of breath or wheezing #8.5 grams amoxicillin 875 mg-potassium 1 tab PO Q12H 7 days #14 tabs 02/22/23 clavulanate 125 mg tablet benzonatate 200 mg capsule 200 mg PO BID PRN cough 5 days #15 02/22/23 caps levofloxacin 750 mg tablet 750 mg PO DAILY 5 days #5 tabs 02/22/23 Allergies Allergy/AdvReac Type Severity Reaction Status Date / Time hydromorphone [From Dilaudid] Allergy Severe Hallucinati Verified 02/22/23 11:24 ons losartan Allergy Intermediate Facial Verified 02/22/23 11:24 Swelling Sulfa (Sulfonamide AdvReac Severe Rash Verified 02/22/23 11:24 Antibiotics) Review of Systems Review of Systems: Coughing with yellow phelghm, hoarseness, clogged ears, and bodyaches. Yes all other systems are reviewed and are negative PMFSH Past Medical History Medical History Shakes Frequent falls Ascites Anemia CHF (congestive heart failure) Pancytopenia Anxiety HTN (hypertension) Tremor Chronic diarrhea Primary biliary cholangitis Breast cancer Surgical History H/O wrist surgery Transplant recipient Hx of colonoscopy Hx of esophagogastroduodenoscopy H/O: hysterectomy S/P hip replacement Liver transplant recipient Family History Family History Mother CAD (coronary artery disease) Sister Ovarian cancer Mental health disorder Social History Household Members: Spouse Household Members Other:: , children Housing: House Do you presently have visiting nurse or other home services: No Alcohol intake: never Patient Tobacco Use Status: Former Tobacco user Tobacco use type: Cigarette Smoked in Last 30 Days: No e-Cigarette/Vaping Use: Never Used Use of substances other than those prescribed or required for medical reasons: No Advance Directives: Yes Advance Directives on File: Yes Advance Directives Date on File: 12/15/22 service: No Current occupational status: retired Cognitive needs: No Hearing needs: No Vision needs: Yes Physical Exam ED Vital Signs: Vital Signs - 24 hr 02/22/23 11:17 02/22/23 13:47 Temperature 98.6 F 98.1 F Pulse Rate 104 H 104 H Respiratory Rate 18 16 Blood Pressure 113/76 122/76 Pulse Oximetry 98 98 Oxygen Delivery Method Room Air Room Air BMI result Body Mass Index 23.4 Const General: cooperative, healthy appearing, comfortable, no acute distress, well developed, alert, awake and Physically active Orientation/consciousness: oriented to person, oriented to place, oriented to time and patient oriented x3 HENMT Head: Yes normal to inspection, Yes No palpable skull fracture present, Yes normocephalic and Yes atraumatic Ears: hearing grossly normal bilaterally, external ears normal, TM normal on the right, EAC's normal, mastoids normal, no periauricular adenopathy and TM abnormal erythematous on the left Throat: Yes posterior oropharynx normal, Yes tonsils normal and Yes uvula midline Eyes Other: icterus General: appearance normal, both eyes and all related structures Neck Neck: Yes normal visual inspection, Yes full ROM, Yes no lymphadenopathy, Yes no meningeal signs, Yes trachea midline, Yes supple, No anterior neck swelling and No tender Chest Chest palpation & inspection: normal inspection of the chest and normal palp ation of entire chest wall Resp Effort & Inspection: normal respiratory effort and able to speak in complete sentences Auscultation: wheezes expiratory wheezes (mild) Cardio Jugular venous distension: no JVD Heart sounds: S1 normal heart sound present and S2 normal heart sound present GI Inspection: Yes normal to inspection, No abdominal wall ecchymosis and Yes distended (patient states abdomen is significantly smaller. recent paracentesis.) Palpation (GI): Soft to palpation, not firm, nontender, no guarding and not rigid General: No CVA tenderness and Yes no CVA tenderness Back/Spine/Pelvis Back: no CVA tenderness, No CVA tenderness and No back tenderness Skin Other: yellow. Neuro General: oriented to person, oriented to place, oriented to time, patient oriented x3, gait normal, tone normal, moves all extremities, Normal light touch and pain sensation, no meningeal signs, no focal motor deficits, CN's II-XI intact bilaterally and normal sensation to monofilament Extrem Other: bilateral lower extremities negative for calf pain, swelling, or pitting edema. Negative for any swelling General: Yes normal to inspection and Yes full ROM Psych Appearance: grossly normal, well kempt and not disheveled Course Course Course Narrative: This is a rapid medical exam: Additional HPI, ROS, PE not included below will be deferred to primary provider. Patient is a 67-year-old female presenting to the emergency department with complaint of cough productive of yellow sputum for the past week as well as ears feeling blocked and hoarse voice. She denies fevers or sore throat. She has used saline spray, guaifenisen, and Tylenol for her symptoms. Plan: swab for flu/Covid/RSV, CXR Medical Decision Making Medical Decision Making MDM Narrative: 67 yold female with pmh of CHF, Liver transplant, Primary BIliary Cholangiist, Ascites, Pneumonia, Ascites, to the ED for coughing up yellow phelghm for the past week, bilateral ear pain, hoarsness, and bodyaches. Patient's had similiar symptoms first. Patient deneis any chest pain, shortness of breath, leg swelling, calf pain, weakness, dizziness, coughing up blood, abdominal pain, flank pain, increase size of abdomen or any symptoms. SARS came back ne gative. Left ear shows otitis medial. LUngs mild wheezing. Chest xray negative for obvious pneumonia, but does show right atelectasis and small right pleural effussion versus thicekning. Chest xray negative for signs of fluid overloard or cardiomegaly. CHest xray on 04/24/22 shows also small right pleural effusion. Patient has paracentesis this past sunday as per Patient and daughter xRAY READINGS EXpected DUE TO PMH OF chf, ASCITES, AND CIRROHOSIS.. Not suspecting fluid OVERLOAD, sbp, CHF EXACERBATION, Sbp, hypoxia, respriatory distress, OR MYOCARDIAL INFARCTION. PATIENT VITAL SIGNS PHYSICAL EXAM AND CHEST X-RAY DOES NOT INDICATE FLUID OVERLOAD. PATIENT STABLE AND WELL APPEARING. NO NEED FOR LAB WORK OR EKG. PATIENT PRESENTED AND URI SYMPTOMS. WILL TREAT BRONCHITIS early pneumonia AND GIVEN ANTIBIOTICS DUE TO PATIENT IMMUNOCOMPROMISED STATES OF WAITING FOR LIVER TRANSPLANT. PATIENT HISTORY OF PNEUMONIA WILL TREAT bONCHITIS AND DISCHARGE WITH ANTIBIOTICS.. ANTI OF PNEUMONIA CAN TAKE UP TO 2 WEEKS BEFORE SHOWS ON X-RAY. WILL BE GIVEN ALBUTEROL INHALER PRESCRIPTION. PATIENT DAUGHTER WAS INFORMED AND EDUCATED WORRISOME SIGNS INCLUDING SIGNS OF MYOCARDIAL INFARCTION, FLUID OVERLOAD, SPONTANEOUS BACTERIAL PERITONITIS, AND CHF EXACERBATION AND OTHER DISEASE AND TOLD TO RETURN TO ED IMMEDIATELY IF SHE HAS THEM. PATIENT'S PHYSICAL EXAM DOES NOT INDICATE ANASARCA. DAUGHTER AND PATIENT INFORMED OF BEING COMPLIANT WITH HER HOME MEDS TO TREAT HER CHF AND ASCITES AND OTHER MEDICAL ETIOLOGIES. Patient not in fluid overload from ascites. patient stable. patient treated as bronchitis or early pneumonia due to immunocompromised state of needing liver transplant. Differential Diagnosis Differential Diagnoses: The differential diagnosis associated with the presentation includes ( PNEUMONIA, COVID, RSV, INFLUENZA, BRONCHITIS,) Admission/Observation Consideration of admission/observation: Escalation of care including admission/observation considered Lab Data Labs: Lab Results 02/22/23 Range/Units 11:36 Influenza Type A (PCR) NEGATIVE (Negative) Influenza Type B (PCR) NEGATIVE (Negative) RSV RNA Qual (PCR) NEGATIVE (Negative) SARS-CoV-2 RNA (RT-PCR) NEGATIVE (Negative) Independent Interpretation I performed an independent interpretation of an: Plain X-Ray Radiology Impression Discussion of test interpretation with radiology: I have reviewed the radiologist's reading. Independent Historian Clinical information obtained from an independent historian. History obtained from or confirmed by: Other (dAUGHTER) External Record Review External record reviewed: Other (pRIOR ed VISITS) Prescription Management I considered prescription management with: Antibiotic and Other (ALBUTEROL INHALER WITH SPACEER) Discharge Plan Discharge Clinical Impression: Bronchitis, Otitis media Patient Disposition: Home, Self-Care Instructions: How to Use a Metered-Dose Inhaler (ED), Ear Infection (ED), Acute Bronchitis (ED) Additional Instructions: Yes swab such as COVID influenza RSV came back negative. x-ray does not show signs of fluid overload and no obvious pneumonia, but you will be treated as bronchitis and prescribed albuterol inhaler and antibiotics. Please follow-up with your primary care provider. Return to the ED immediately for any swelling of lower extremities, chest pain, shortness of breath, coughing up blood, weakness, dizziness, abdominal pain, increase swelling of abdominal pain, worsesning ear pain or any other concerning symptoms. Prescriptions: New albuterol sulfate 90 mcg/actuation HFA aerosol inhaler 2 puff inhalation Q4-6H PRN (Reason: shortness of breath or wheezing) Qty: 8.5 0RF amoxicillin-pot clavulanate 875-125 mg tablet 1 tab PO Q12H 7 Days Qty: 14 0RF levofloxacin 750 mg tablet 750 mg PO DAILY 5 Days Qty: 5 0RF benzonatate 200 mg capsule 200 mg PO BID PRN (Reason: cough) 5 Days Qty: 15 0RF No Action pantoprazole 40 mg tablet,delayed release (DR/EC) 40 mg PO QAM Qty: 30 11RF furosemide 40 mg tablet 40 mg PO DAILY Qty: 90 3RF Galzin 50 mg (zinc) capsule 50 mg PO DAILY Qty: 90 3RF alendronate [Fosamax] 70 mg tablet 70 mg PO QWEEK Qty: 14 4RF cholecalciferol (vitamin D3) [Vitamin D3] 25 mcg (1,000 unit) Capsule 25 mcg PO DAILY cyanocobalamin (vitamin B-12) [Vitamin B-12] 1,000 mcg Tablet 1,000 mcg PO DAILY Qty: 90 3RF ursodiol 500 mg tablet 1 tab PO BID pyridoxine (vitamin B6) 100 mg tablet 100 mg PO BID vitamin A 10,000 unit Tablet 10,000 unit PO DAILY alprazolam 1 mg tablet 1 mg PO DAILY PRN (Reason: Anxiety) Rx Instructions: PRIOR TO PARACENTESIS magnesium glycinate 100 mg magnesium Capsule 100 mg PO DAILY bupropion HCl 75 mg tablet 300 mg PO DAILY colesevelam 625 mg tablet 1,875 mg PO BID (DME) Ultra-Light Rollator Misc See Rx Instructions .Route Qty: 1 0RF Rx Instructions: As directed Entyvio 300 mg recon soln 300 mg IV Q8W Rx Instructions: administer over 30 mins gabapentin 300 mg capsule 600 mg PO BEDTIME Qty: 180 2RF tacrolimus 0.5 mg capsule 0.5 mg PO Q12H ondansetron 4 mg tablet,disintegrating 4 mg PO Q8H PRN (Reason: nausea and vomiting) Qty: 90 1RF Discharge Date/Time: 02/22/23 14:04 Print Language: Citizen Of [place]
[2023-02-22 12:28] LABS: Influenza A PCR NEGATIVE (Negative); Influenza B PCR NEGATIVE (Negative); Resp Syncy Virus RNA Qual PCR NEGATIVE (Negative); SARS COV2 PCR INHOUSE NEGATIVE (Negative)
[2023-02-22 13:47] VITALS: BP 122/76; PULSE 104; RESP 16; TEMP 36.7; O2SAT 98
--- NOTE | 2023-02-22 14:03 | PC.NURSE ---
PT WAS EVALUATED AND DISCHARGED BY PROVIDER
== END 2023-02-22 14:04 | disposition home or self-care (01) ==
PROVIDERS: Registered Nurse Emergency; Emergency Provider Emergency Medicine; PCP Internal Medicine
DX: J40 Bronchitis, not specified as acute or chronic (principal); H66.92 Otitis media, unspecified, left ear; Z20.822 Contact with and (suspected) exposure to COVID-19; Z20.828 Contact with and (suspected) exposure to other viral communicable diseases; Z87.891 Personal history of nicotine dependence
CPT/HCPCS: 0241U; 71046; 99283; 99284

== ENCOUNTER 2023-02-28 05:21 | Inpatient (IN) | payer MEDICARE, OTHER, SELFPAY ==
[2023-02-28] VITALS (14 sets, daily range): BP systolic 104–136; BP diastolic 64–89; PULSE 92–104; RESP 15–25; TEMP 36.4–36.9; O2SAT 95–100; BMI 26.0
--- NOTE | ~2023-02-28 | XR_ITS ---
EXAMINATION: XR CHEST CLINICAL INFORMATION: Dyspnea COMPARISON: 02/22/2023 TECHNIQUE: Frontal view of the chest was obtained. FINDINGS: Lung volumes are symmetric. No focal consolidation is seen. No evidence of pneumothorax. Small right pleural effusion. No overt pulmonary edema. Cardiac size is within normal limits. An approximately 2 cm nodular density in the right hilar region may reflect sequelae of atelectasis in the right middle lobe, somewhat more conspicuous than on the prior exam. Calcification is present at the aortic arch. No acute osseous findings are seen. XR/XR chest 1V IMPRESSION: Approximately 2 cm nodular density in the right hilar region may reflect sequelae of atelectasis/volume loss in the right middle lobe, somewhat more conspicuous than on the prior exam. Short-term radiographic follow-up is recommended. Small right pleural effusion.
--- NOTE | ~2023-02-28 | XR_ITS ---
EXAMINATION: XR CHEST CLINICAL INFORMATION: Post right thoracentesis COMPARISON: Previous chest x-ray from earlier the same day TECHNIQUE: Frontal view of the chest was obtained. FINDINGS: The cardiac and mediastinal contours are stable. There is subsegmental atelectasis of the right lung base. The lungs are otherwise clear. No pneumothorax. No significant residual effusion. XR/XR chest 1V IMPRESSION: No pneumothorax post right thoracentesis
--- NOTE | ~2023-02-28 | US_ITS ---
ULTRASOUND RIGHT THORACENTESIS History: Cirrhosis. Right hepatic hydrothorax. Risks and benefits and possible complications were discussed with the patient and consent form was signed. A limited preprocedure ultrasound demonstrated a moderate right pleural effusion. Images were saved to PACS. A safe intercostal space was identified using ultrasound guidance, and the overlying skin was marked. The right back prepped and draped in sterile fashion. 1% lidocaine was used as a local anesthetic. Using ultrasound guidance, a 5 fr catheter was placed into the right pleural space. 500 ml of yellow fluid was removed passively. The catheter was then removed. There were no immediate complications. A post procedure chest x-ray be performed and dictated separately. The procedure was performed by Gabriel Tai PA-C and supervised by Dr. Agarwal. US/US thoracentesis IMPRESSION: Ultrasound-guided right thoracentesis No immediate complications
--- NOTE | ~2023-02-28 | CT_ITS ---
EXAMINATION: CT ANGIOGRAM OF THE CHEST WITH AND WITHOUT CONTRAST (CT PULMONARY ANGIOGRAM FOR PE) CLINICAL INFORMATION: Reason for Exam SOB, worsening consolidation, no anti-coags COMPARISON: 03/30/2022. TECHNIQUE: Prior to contrast administration, noncontrast localization images were obtained. Subsequently, multidetector volumetric imaging was performed from the thoracic inlet to below the diaphragms following the administration of 60 mL Omnipaque 350 intravenous contrast. No contrast reaction reported Sagittal, coronal, and MIP oblique sagittal reformatted images were obtained on the CT workstation, uploaded to PACS, and reviewed. This CT examination was performed using dose optimization techniques as appropriate, variously including the following: *Automated exposure control *Adjustment of mA and/or kV according to patient size (this includes techniques or standardized protocols for targeted exams where dose is matched to indication/reason for exam; i.e. extremities or head) *Use of iterative reconstruction technique Total exam dose-length product 132 mGy-cm Limited evaluation secondary to motion artifact during the examination. FINDINGS: QUALITY OF STUDY/CONTRAST BOLUS: Satisfactory. PULMONARY ARTERIES: No pulmonary emboli. THORACIC AORTA: No aneurysm. LUNG: Curvilinear consolidation along the superior aspect of the minor fissure and the junction with the right major fissure suggestive of atelectasis or infiltrate. Compressive atelectatic change of the right lower lobe. Small atelectasis or infiltrate linear of the medial right upper lobe near the apex. Atelectatic change along the anterolateral left lower lobe.Small atelectatic change along the posterolateral and basilar aspect of the left lower lobe. PLEURA: Right pleural effusion, larger since the previous evaluation. MEDIASTINUM: No new suspicious mediastinal or hilar adenopathy. No evidence of septal bowing or right heart strain. CORONARY ARTERY CALCIFICATION: Present. CHEST WALL/AXILLA: No new suspicious axillary adenopathy. Collateral vessels along the lateral left chest wall and the posterior upper chest wall. OSSEOUS STRUCTURES: Small spondylitic changes. No acute compression fractures. UPPER ABDOMEN: Ascites. Contrast material in the in the IVC suggestive of tricuspid regurgitation. CT/CT angio chest PE protocol IMPRESSION: No CTA evidence for pulmonary embolus. Larger right pleural effusion since the previous evaluation with right lower lobe compressive atelectatic change. Curvilinear consolidation along the superior aspect of the minor fissure and near the junction with the right major fissure suggestive of atelectasis or infiltrate. Small atelectasis or infiltrate at the medial right upper lobe near the apex. Intra-abdominal ascites. Other incidental findings as noted above.
--- NOTE | ~2023-02-28 | XR_ITS ---
EXAMINATION: XR FOOT, RIGHT CLINICAL INFORMATION: Right foot fracture. COMPARISON: February 02, 2023 and January 05, 2023. TECHNIQUE: AP, lateral, and oblique views of the right foot. FINDINGS: There is no significant change in the appearance of healing oblique fracture of the fourth metacarpal shaft. There is a nondisplaced healing fracture at the base of the fifth metatarsal. There is some sclerosis with periosteal new bone formation seen about the medial aspect of the fracture of the fifth metatarsal which may be related to some degree of bony union. Vascular calcifications are present. Plantar and Achilles calcaneal spurs again seen. XR/XR foot RT min 3V IMPRESSION: No significant change in the appearance of healing fractures of the right fourth and fifth metatarsals.
--- NOTE | 2023-02-28 06:22 | PC.NURSE ---
Pt A&Ox3, TONTO AP[place]HE, reports 11/09 ear pain, increase SOB since last Sunday, was seen here 02/23 and discharge with ABX. Pt speaking in full sentences, VSS, lung sounds clear to left side, diminished to right side.
--- NOTE | 2023-02-28 06:47 | ED_ITS ---
HPI - General Adult General Chief complaint: General Medical Stated complaint: trouble breathing Time Seen by Provider: 02/28/23 06:43 Source: patient and family (patient's ) Mode of arrival: ambulatory Limitations: no limitations History of Present Illness HPI narrative: Patient is a 67 year old assigned female at with a history of liver transplant for which she follows with [facility] presenting to the emergency department today with persistent cough and bilateral ear pain. Patient states that she is on the list for a new transplant because her current liver continually produces ascites. Patient states that she gets symptomatic paracentesis bi-weekly with her last being last Sunday. Patient states that she has had a cough and persistent ear fullness for the last week. Patient states that she was seen on 02/24/2023 and given multiple medications including a cough suppressant and 2 antibiotics. Patient states that her cough continues and her felt as thought she was breathing differently in her sleep. Patient denies any dizziness, lightheadedness, abdominal pain, nausea, vomiting, fever, chills, blurry vision, double vision, loss of vision, chest pain, back pain, night sweats, pain with urination, increased urinary frequency, increased urinary urgency, blood in her urine or stool, syncope or a near syncopal episode, recent trauma or falls, bowel incontinence, bladder incontinence, bowel retention, bladder retention, or any other complaints at this time. Onset (ago): week(s) (1) Severity: mild Severity scale (1-10): 3 Relieving factors: none Exacerbating factors: none Associated symptoms: cough Treatments prior to arrival: other (2 antibiotics and a cough suppressant) Related Data Home Medications Medication Instructions Recorded Confirmed ursodiol 500 mg tablet 1 tab PO BID 11/02/21 02/19/23 cholecalciferol (vitamin D3) 25 25 mcg PO DAILY 04/25/22 02/01/23 mcg (1,000 unit) capsule (Vitamin D3) tacrolimus 0.5 mg capsule, 0.5 mg PO Q12H 08/22/22 02/28/23 immediate-release alprazolam 1 mg tablet 1 mg PO DAILY PRN Anxiety 09/04/22 02/01/23 pyridoxine (vitamin B6) 100 mg 100 mg PO BID 09/04/22 02/01/23 tablet bupropion HCl 75 mg tablet 300 mg PO DAILY 12/15/22 02/19/23 colesevelam 625 mg tablet 1,875 mg PO BID 12/15/22 02/01/23 vedolizumab 300 mg intravenous 300 mg IV Q8W 02/01/23 02/01/23 solution (Entyvio) bupropion HCl 300 mg 24 hr tablet, 300 mg PO DAILY 02/28/23 extended release pantoprazole 40 mg tablet,delayed 40 mg PO DAILY 02/28/23 02/28/23 release Previous Rx's Medication Instructions Recorded cyanocobalamin (vitamin B-12) 1,000 mcg PO DAILY #90 tabs 04/25/22 1,000 mcg tablet (Vitamin B-12) gabapentin 300 mg capsule 600 mg (2 x 300 mg) PO BEDTIME 09/21/22 #180 caps ondansetron 4 mg disintegrating 4 mg PO Q8H PRN nausea and 10/09/22 tablet vomiting #90 tabs furosemide 40 mg tablet 40 mg PO DAILY #90 tabs 11/07/22 walker (Ultra-Light Rollator misc) #1 ea 12/16/22 alendronate 70 mg tablet (Fosamax) 70 mg PO QWEEK #14 tabs 02/08/23 albuterol sulfate 90 mcg/actuation 2 puff inhalation Q4-6H PRN 02/22/23 aerosol inhaler shortness of breath or wheezing #8.5 grams amoxicillin 875 mg-potassium 1 tab PO Q12H 7 days #14 tabs 02/22/23 clavulanate 125 mg tablet benzonatate 200 mg capsule 200 mg PO BID PRN cough 5 days #15 02/22/23 caps levofloxacin 750 mg tablet 750 mg PO DAILY 5 days #5 tabs 02/22/23 Allergies Allergy/AdvReac Type Severity Reaction Status Date / Time hydromorphone [From Dilaudid] Allergy Severe Hallucinati Verified 02/28/23 05:43 ons losartan Allergy Intermediate Facial Verified 02/28/23 05:43 Swelling Sulfa (Sulfonamide AdvReac Severe Rash Verified 02/28/23 05:43 Antibiotics) Review of Systems 2 Constitutional: Constitutional: Reports no additional constitutional complaints, Denies chills, Denies fever(s) and Denies night sweats Eyes: Eyes: Reports no additional eye complaints, Denies blurry vision, Denies change in vision, Denies diplopia, Denies eye discharge, Denies loss of vision and Denies eye pain ENT: Denies dizziness and Reports sinus pressure Comments: bilateral ear fullness Cardiovascular: Cardiovascular: Reports no additional cardiovascular complaints, Denies chest pain, Denies lightheadedness and Denies Loss of Consciousness Respiratory: Respiratory: Reports no additional respiratory complaints and Reports cough Gastrointestinal: Gastrointestinal: Reports no additional gastrointestinal complaints, Denies abdominal pain, Denies melena, Denies hematochezia, Denies change in bowel habits and Denies change in stool character Genitourinary: Genitourinary: Denies hematuria, Denies urinary frequency, Denies dysuria, Denies urinary incontinence, Denies urinary hesitancy and Denies urinary urgency Musculoskeletal: Musculoskeletal: Reports no additional musculoskeletal complaints, Denies numbness and Denies tingling Neurologic: Denies dizziness, Denies loss of vision, Denies numbness and Denies tingling Psychiatric: Psychiatric: Reports no additional psychiatric complaints Endocrine: Endocrine: Reports no additional endocrine complaints Hematologic/Lymphatic: Hematologic/Lymphatic: Reports no additional hematologic/lymphatic complaints Allergic/Immunologic: Allergic/Immunologic: Reports no additional allergic/immunologic complaints PENDING SALE TO [facility] Past Medical History Attestation statement: The following information was validated with the patient. (all information validated with the patient's ) Source: old records reviewed, obtained from family (patient's provided additional history and confirmed the history provided by the patient.) and nursing notes reviewed Medical History Shakes Frequent falls Ascites Anemia CHF (congestive heart failure) Pancytopenia Anxiety HTN (hypertension) Tremor Chronic diarrhea Primary biliary cholangitis Breast cancer Surgical History H/O wrist surgery Transplant recipient Hx of colonoscopy Hx of esophagogastroduodenoscopy H/O: hysterectomy S/P hip replacement Liver transplant recipient Family History Family History Mother CAD (coronary artery disease) Sister Ovarian cancer Mental health disorder Social History Social History Household Members: Spouse Household Members Other:: , children Housing: House Do you presently have visiting nurse or other home services: No Alcohol intake: never Patient Tobacco Use Status: Former Tobacco user Tobacco use type: Cigarette Smoked in Last 30 Days: No e-Cigarette/Vaping Use: Never Used Use of substances other than those prescribed or required for medical reasons: No Advance Directives: Yes Advance Directives on File: Yes Advance Directives Date on File: 12/15/22 service: No Current occupational status: retired Cognitive needs: No Hearing needs: No Vision needs: Yes Physical Exam ED Vital Signs: Vital Signs - 24 hr 02/28/23 05:44 02/28/23 06:57 02/28/23 07:57 Temperature 98.3 F 98.4 F Pulse Rate 95 94 94 Respiratory Rate 17 15 18 Blood Pressure 125/84 120/72 Pulse Oximetry 98 99 Oxygen Delivery Method Room Air Room Air 02/28/23 09:22 02/28/23 10:00 02/28/23 11:05 Temperature 98.2 F 98 F 98 F Pulse Rate 92 92 92 Respiratory Rate 25 H 16 18 Blood Pressure 129/79 123/76 111/79 Pulse Oximetry 99 96 95 Oxygen Delivery Method Room Air Room Air Room Air BMI result Body Mass Index 26.0 Const General: cooperative, no acute distress, alert and awake Nutritional Appearance: well nourished Orientation/consciousness: patient oriented x3 Limitations: no limitations HENMT Head: Yes normal to inspection and Yes atraumatic Ears: hearing grossly normal bilaterally and external ears normal General nose exam: Normal external nose present, no nasal discharge noted and no epistaxis Face and sinus: Yes normal facial exam, No abrasion and No laceration Mouth: Normal oral and palatal mucosa present, no drooling and no muffled voice Eyes General: appearance normal, both eyes and all related structures Periorbital: periorbital findings normal Eyelids: Yes eyelids normal Conjunctivae: conjunctivae normal Pupils: Equal, round and reactive pupils present EOM: EOMs intact bilaterally Neck Neck: Yes normal visual inspection, Yes full ROM and Yes no lymphadenopathy Chest Chest palpation & inspection: normal inspection of the chest Resp Effort & Inspection: normal respiratory effort and able to speak in complete sentences Auscultation: clear to auscultation bilaterally Cardio Rate: regular rate Rhythm: regular rhythm GI Inspection: Yes distended Palpation (GI): Soft to palpation, not firm, nontender, no guarding and not rigid Neuro General: patient oriented x3 and moves all extremities Cranial nerves: Yes Equal, round and reactive pupils present Cognition (Neuro): normal cognition Motor exam (neuro): 5/5 motor strength present throughout Sensory Exam: Normal double simultaneous stimulation for sensation Coordination: [id number] test normal Extrem General: Yes normal to inspection, Yes full ROM and Yes capillary refill normal Psych Appearance: grossly normal Mental Status: mental status grossly normal Affect: normal affect Attitude: cooperative Thought process: Normal thought process present Thought content: Normal thought content present Insight: Good insight present (Psych) Course Consultations Consultation #1: Spoke with Dr. aGrcia from [facility] Liver transplant team. He recommends admitting the patient to medicine here, continue getting IV antibiotics, and having a thoracentesis performed. States that if the patient doesn't improve in 24 hours or worsens, Karen should be contacted again for possible transfer. They can be reached at [phone]. Time: 10:12 Consultation #2: Spoke to the thoracic surgeon Dr. Streeter who requested that I request IR place a chest tube. Time: 10:37 Medications Administered Discontinued Medications Generic Name Dose Route Start Last Admin Trade Name Yevgeniyq PRN Reason Stop Dose Admin Albuterol Sulfate 2 puff 02/28/23 07:50 02/28/23 07:53 Albuterol Sulfate 90 Mcg 8 Gm Inhaler INHALE 02/28/23 07:51 2 puff ONCE ONE Administration Cefepime HCl 1 gm/ Sodium 50 mls @ 100 mls/hr 02/28/23 10:13 02/28/23 10:58 Chloride IV 02/28/23 10:42 100 mls/hr ONCE ONE Administration Iohexol 60 ml 02/28/23 08:27 02/28/23 08:28 Iohexol 350 Mg/Ml 100 Ml Infus..Btl IV 02/28/23 08:28 60 ml ONCE ONE Administration Medical Decision Making Medical Decision Making MDM Narrative: Patient is a 67 year old assigned female at with a history of liver transplant for which she follows at [facility] presenting to the emergency department today with worsening cough. Patient's physical exam was as noted in the physical exam portion of this note. Patient's blood work was consistent with a liver transplant patient and unremarkable. Patient's chest x-ray showed an approximately 2cm nodular density in the right hilar region which may reflect sequealae of atelectasis / volume loss in the right middle lobe that is some what more conspicuous than on the x-ray from . Patient's Chest CTA showed a larger right pleural effusion than the 02/22 exam and evidence of infiltrates in the right middle and upper lobes. Patient's clinical presentation is not consistent with sepsis (@1020). I spoke with Dr. Garcia from [facility] who recommended the patient be admitted to medicine for IV antibiotics and a thoracentesis. States that if the patient does not improve or worsens in 24 hours, to call [phone] and discuss potential transfer. I spoke to the hospitalist who agreed to admission. I spoke to the thoracic surgeon who requested that I speak to IR for a chest tube to placed. I put in the order to IR and spoke to the lead IR tech. I explained my physical exam findings as well as all test results to the patient and the patient's . I answered all questions asked by the patient and the patient's . Patient and the patient's verbalized agreement and understanding with this treatment plan and admission. Differential Diagnosis Differential Diagnoses: The differential diagnosis associated with the presentation includes Pneumonia Pleural effusion Viral illness Cough Admission/Observation Consideration of admission/observation: Escalation of care including admission/observation considered Patient admitted. Consult Healthcare Provider Management of the patient was discussed with: Hospitalist (Agreed to admission.) and Nutritional Health Coach (Spoke to Dr. Garcia and the thoracic surgeon as noted in the MDM Rationale portion of this note.) Lab Data [facility] Lab Attestation statement: I reviewed the patient's lab results. My interpretation of these results are in the MDM Rationale portion of this note. 02/28/23 07:38 02/28/23 07:38 Labs: Lab Results 02/28/23 Range/Units 07:38 WBC 4.2 L (4.8-10.8) X10*3/uL RBC 3.51 L (4.20-5.50) X10*6/uL Hgb 10.6 L (12.0-16.0) g/dl Hct 32.9 L (37.0-47.0) % MCV 93.7 (80.0-98.0) fL MCH 30.2 (27.0-33.0) pg MCHC 32.2 (31.0-35.0) g/dl RDW 15.9 (11.0-16.0) % Plt Count 128 L (160-400) X10*3/uL MPV 10.1 (9.4-12.3) fL Immature Gran % (Auto) 0.2 (0.0-0.4) % Neut % (Auto) 66.0 (45-73) % Lymph % (Auto) 17.8 L (20-40) % [place] % (Auto) 12.4 H (2-11) % Eos % (Auto) 2.9 (0-4) % Baso % (Auto) 0.7 (0-2) % Lymph # (Auto) 0.8 L (1.2-4.9) X10*3/uL [place] # (Auto) 0.5 (0.1-1.2) X10*3/uL Eos # (Auto) 0.1 (0.0-0.4) X10*3/uL Baso # (Auto) 0.0 (0.0-0.2) X10*3/uL Abs Immat Gran (auto) 0.01 (0.00-0.03) X10*3/uL Absolute Neuts (auto) 2.8 (2.0-8.3) x10*3/uL Absolute Nucleated RBC 0.000 (0.0-0.012) X10*3/uL Nucleated RBC % (auto) 0.0 (0.0-0.2) /100WBC Sodium 140 (135-145) mmol/L Potassium 3.3 (3.3-5.1) mmol/L Chloride 110 H (96-108) mmol/L Carbon Dioxide 24 (22-29) mmol/L Anion Gap 9 L (12-20) BUN 11 (9-16) mg/dL Creatinine 0.72 (0.5-1.4) mg/dL Estim Creat Clear Calc 58.1 Estimated GFR > 60 Random Glucose 96 (60-115) mg/dL Calcium 8.0 L D (8.4-10.2) mg/dL Magnesium 1.7 (1.6-2.6) mg/dL Total Bilirubin 1.7 H (0.0-1.0) mg/dL AST 44 H (5-31) U/L ALT 25 (0-31) U/L Alkaline Phosphatase 218 H (39-117) U/L Total Protein 6.0 L (6.5-8.0) g/dL Albumin 2.5 L (3.5-5.0) g/dL Lipase 45 (8-78) U/L Independent Interpretation I performed an independent interpretation of an: Plain X-Ray and CT Scan Interpretation: My interpretation is in agreement with the radiologist's impression of these imaging studies. - EXAMINATION: XR CHEST CLINICAL INFORMATION: Dyspnea COMPARISON: 02/22/2023 TECHNIQUE: Frontal view of the chest was obtained. FINDINGS: Lung volumes are symmetric. No focal consolidation is seen. No evidence of pneumothorax. Small right pleural effusion. No overt pulmonary edema. Cardiac size is within normal limits. An approximately 2 cm nodular density in the right hilar region may reflect sequelae of atelectasis in the right middle lobe, somewhat more conspicuous than on the prior exam. Calcification is present at the aortic arch. No acute osseous findings are seen. XR/XR chest 1V IMPRESSION: Approximately 2 cm nodular density in the right hilar region may reflect sequelae of atelectasis/volume loss in the right middle lobe, somewhat more conspicuous than on the prior exam. Short-term radiographic follow-up is recommended. Small right pleural effusion. Dictated By: Francisco Hunter MD Signed By: Electronically signed by Francisco Hunter MD 02/28/23 0608 - EXAMINATION: CT ANGIOGRAM OF THE CHEST WITH AND WITHOUT CONTRAST (CT PULMONARY ANGIOGRAM FOR PE) CLINICAL INFORMATION: Reason for Exam SOB, worsening consolidation, no anti-coags COMPARISON: 03/30/2022. TECHNIQUE: Prior to contrast administration, noncontrast localization images were obtained. Subsequently, multidetector volumetric imaging was performed from the thoracic inlet to below the diaphragms following the administration of 60 mL Omnipaque 350 intravenous contrast. No contrast reaction reported Sagittal, coronal, and MIP oblique sagittal reformatted images were obtained on the CT workstation, uploaded to PACS, and reviewed. This CT examination was performed using dose optimization techniques as appropriate, variously including the following: *Automated exposure control *Adjustment of mA and/or kV according to patient size (this includes techniques or standardized protocols for targeted exams where dose is matched to indication/reason for exam; i.e. extremities or head) *Use of iterative reconstruction technique Total exam dose-length product 132 mGy-cm Limited evaluation secondary to motion artifact during the examination. FINDINGS: QUALITY OF STUDY/CONTRAST BOLUS: Satisfactory. PULMONARY ARTERIES: No pulmonary emboli. THORACIC AORTA: No aneurysm. LUNG: Curvilinear consolidation along the superior aspect of the minor fissure and the junction with the right major fissure suggestive of atelectasis or infiltrate. Compressive atelectatic change of the right lower lobe. Small atelectasis or infiltrate linear of the medial right upper lobe near the apex. Atelectatic change along the anterolateral left lower lobe.Small atelectatic change along the posterolateral and basilar aspect of the left lower lobe. PLEURA: Right pleural effusion, larger since the previous evaluation. MEDIASTINUM: No new suspicious mediastinal or hilar adenopathy. No evidence of septal bowing or right heart strain. CORONARY ARTERY CALCIFICATION: Present. CHEST WALL/AXILLA: No new suspicious axillary adenopathy. Collateral vessels along the lateral left chest wall and the posterior upper chest wall. OSSEOUS STRUCTURES: Small spondylitic changes. No acute compression fractures. UPPER ABDOMEN: Ascites. Contrast material in the in the IVC suggestive of tricuspid regurgitation. CT/CT angio chest PE protocol IMPRESSION: No CTA evidence for pulmonary embolus. Larger right pleural effusion since the previous evaluation with right lower lobe compressive atelectatic change. Curvilinear consolidation along the superior aspect of the minor fissure and near the junction with the right major fissure suggestive of atelectasis or infiltrate. Small atelectasis or infiltrate at the medial right upper lobe near the apex. Intra-abdominal ascites. Other incidental findings as noted above. Dictated By: Ascencion Gallo Signed By: Electronically signed by Ascencion Gallo 02/28/23 0929 Radiology Impression Discussion of test interpretation with radiology: I have reviewed the radiologist's reading. Independent Historian Clinical information obtained from an independent historian. History obtained from or confirmed by: Spouse (patient's provided additional history and confirmed the history provided by the patient.) Chronic Conditions Patient?s care impacted by: Other (liver transplant) Critical Care Time Critical Care Time Critical Care Time: Yes Total Critical Care Time: 65 Attestation: I spent 65 minutes of Critical Care Time with this patient. This does not include time spent on separately reported billable procedures. Discharge Plan Discharge Clinical Impression: Pneumonia, Pleural effusion Patient Disposition: Admitted As Inpatient Prescriptions: No Action pantoprazole 40 mg tablet,delayed release (DR/EC) 40 mg PO QAM Qty: 30 11RF furosemide 40 mg tablet 40 mg PO DAILY Qty: 90 3RF Galzin 50 mg (zinc) capsule 50 mg PO DAILY Qty: 90 3RF alendronate [Fosamax] 70 mg tablet 70 mg PO QWEEK Qty: 14 4RF cholecalciferol (vitamin D3) [Vitamin D3] 25 mcg (1,000 unit) Capsule 25 mcg PO DAILY cyanocobalamin (vitamin B-12) [Vitamin B-12] 1,000 mcg Tablet 1,000 mcg PO DAILY Qty: 90 3RF ursodiol 500 mg tablet 1 tab PO BID pyridoxine (vitamin B6) 100 mg tablet 100 mg PO BID vitamin A 10,000 unit Tablet 10,000 unit PO DAILY alprazolam 1 mg tablet 1 mg PO DAILY PRN (Reason: Anxiety) Rx Instructions: PRIOR TO PARACENTESIS magnesium glycinate 100 mg magnesium Capsule 100 mg PO DAILY bupropion HCl 75 mg tablet 300 mg PO DAILY colesevelam 625 mg tablet 1,875 mg PO BID (DME) Ultra-Light Rollator Misc See Rx Instructions .Route Qty: 1 0RF Rx Instructions: As directed albuterol sulfate 90 mcg/actuation HFA aerosol inhaler 2 puff inhalation Q4-6H PRN (Reason: shortness of breath or wheezing) Qty: 8.5 0RF amoxicillin-pot clavulanate 875-125 mg tablet 1 tab PO Q12H 7 Days Qty: 14 0RF levofloxacin 750 mg tablet 750 mg PO DAILY 5 Days Qty: 5 0RF benzonatate 200 mg capsule 200 mg PO BID PRN (Reason: cough) 5 Days Qty: 15 0RF Entyvio 300 mg recon soln 300 mg IV Q8W Rx Instructions: administer over 30 mins gabapentin 300 mg capsule 600 mg PO BEDTIME Qty: 180 2RF tacrolimus 0.5 mg capsule 0.5 mg PO Q12H ondansetron 4 mg tablet,disintegrating 4 mg PO Q8H PRN (Reason: nausea and vomiting) Qty: 90 1RF
[2023-02-28 07:44] LABS: Basophils Percent Auto 0.7 % (0-2); Eosinophils Absolute Auto 0.1 X10*3/uL (0.0-0.4); Eosinophils Percent Auto 2.9 % (0-4); Hematocrit 32.9 % (37.0-47.0); Hemoglobin 10.6 g/dl (12.0-16.0); Imm Gran Abs Auto 0.01 X10*3/uL (0.00-0.03); Imm Gran Pct Auto 0.2 % (0.0-0.4); Lymphocytes Absolute Auto 0.8 X10*3/uL (1.2-4.9); Lymphocytes Percent Auto 17.8 % (20-40); MANUAL DIFF FLAG NO; Mean Corpuscular HGB Conc 32.2 g/dl (31.0-35.0); Mean Corpuscular Hemoglobin 30.2 pg (27.0-33.0); Mean Corpuscular Volume 93.7 fL (80.0-98.0); Mean Platelet Volume 10.1 fL (9.4-12.3); Monocytes Absolute Auto 0.5 X10*3/uL (0.1-1.2); Monocytes Percent Auto 12.4 % (2-11); Neutrophils Absolute Auto 2.8 x10*3/uL (2.0-8.3); Platelet Count 128 X10*3/uL (160-400); Red Blood Count 3.51 X10*6/uL (4.20-5.50); Red Cell Distribution Width 15.9 % (11.0-16.0); White Blood Count 4.2 X10*3/uL (4.8-10.8)
--- NOTE | 2023-02-28 07:44 | PC.NURSE ---
PT IS A/O X 4. C/O SOB SINCE LAST SUNDAY. LUNGS CTA IN ALL BURROWS L SIDE. LUNGS DIMINISHED IN ALL BURROWS ON R SIDE. HEART SOUNDS -REGULAR. ABD SOFT/DISTENDED BS + X 4 QUADS. NO EDEMA IN YENNIFER LEGS NOTED. PT'S IS AT BEDSIDE. HEPLOCK #20 TO L FOREARM. LABS OBTAINED. PT/ AWARE OF PLAN OF CARE.
[2023-02-28] MEDS: Albuterol Sulfate 90 MCG 8 GM INHALER 2 PUFF INHALE (07:53)
[2023-02-28 08:02] LABS: Alanine Aminotransferase 25 U/L (0-31); Albumin Level 2.5 g/dL (3.5-5.0); Alkaline Phosphatase 218 U/L (39-117); Anion Gap 9 (12-20); Aspartate Amino Transferase 44 U/L (5-31); Bilirubin Total 1.7 mg/dL (0.0-1.0); Blood Urea Nitrogen 11 mg/dL (9-16); Carbon Dioxide 24 mmol/L (22-29); Chloride 110 mmol/L (96-108); Creatinine Clr Calc Pharmacy 58.1; Estimated Glomerular Filt Rate > 60; Glucose Random 96 mg/dL (60-115); Lipase 45 U/L (8-78); Magnesium 1.7 mg/dL (1.6-2.6); Potassium 3.3 mmol/L (3.3-5.1); Sodium 140 mmol/L (135-145)
[2023-02-28] MEDS: iohexoL 350 MG/ML 100 ML INFUS..BTL 60 ML IV (08:28)
--- NOTE | 2023-02-28 09:30 | PC.NURSE ---
breathing well, talking w/o SOB or difficulty. +o2 sat on RA. regular depth of breathing. reports improved breathing/cough after breathing tx. occasional cough.
[2023-02-28] MEDS: cefEPime HCl 1 GM in 0.9 % Sodium Chloride 50 ML IV (10:58)
--- NOTE | 2023-02-28 11:38 | PC.NURSE ---
gave report for patient to IR. spoke dayanara pleitez to notify pt pending procedure.
--- NOTE | 2023-02-28 11:46 | PC.NURSE ---
resp panel sent
--- NOTE | 2023-02-28 11:53 | P.HPHOSP_ITS ---
History of Present Illness Date of Service: 02/28/23 Attending physician on admission: Irineo aGllagher Chief Complaint: Worsening cough, SOB Pt is a 67-year-old female with a PMH significant for liver transplant in 2016 followed by [facility], primary biliary cholangitis, breast cancer,?who presents to the ED with?increased shortness of breath and productive cough over the past week. Patient initially presented to the ED 6 days prior on 02/22/2023 for similar symptoms. CXR at that time did not show signs of fluid overload or obvious pneumonia. Patient was diagnosed with bronchitis and prescribed albuterol inhaler, levofloxacin, and Augmentin. Pt states she took her medications as prescribed but symptoms worsened. Last night noted pt was having wheezing and having difficulty breathing while sleeping, which prompted coming back to the ED for further evaluation. Patient states symptoms have now been ongoing for over 2 weeks. Has been feeling generally unwell, has had bouts of uncontrollable coughing productive of yellowish sputum. Has also been having bilateral ear fullness and difficulty hearing, especially in right ear. Has had some pleuritic inspiratory chest pain and abdominal pain associated with coughing. Denies fever, chills, nausea, vomiting. No diarrhea. Of note, pt has recurrent ascites and receives biweekly paracenteses, with last being last Sunday. Patient has been placed back on transplant list for a new liver d/t recurrent ascites. In the ED pt was afebrile with slightly elevated pulse up to 95, tachypneic up to 25, and satting at 95% on RA. Labs were significant for pancytopenia with WBC 4.2, H&H 10.6/32.9, and platelets 128, as well as bilirubin 1.7, AST 44, alk-phos 218, and albumin 2.5. Respiratory panel pending. CXR showed approximately 2 cm nodular density and right hilar region that may reflect atelectasis/volume loss in the right middle lobe and small right pleural effusion. CTA of chest found no evidence for pulmonary embolus, but did show large right pleural effusion since previous with right lower lobe compressive atelectatic change. Also found consolidations suggestive of atelectasis or infiltrates in multiple areas of right lung. The ED spoke with Dr. Garcia from [facility] team, who recommended admitting the patient to medicine here, continue getting IV antibiotics, and having a thoracentesis performed. States that if the patient doesn't improve in 24 hours or worsens, [facility] should be contacted again for possible transfer. They can be reached at [phone]. P t was treated with cefepime, albuterol, and Ativan. Pt will be admitted to the hospital for treatment and further evaluation of right pleural effusion and pneumonia that failed outpatient therapy. Review of Systems 2 Review of Systems: Increasing shortness of breath, productive cough Wheeziness/difficulty breathing while sleeping Fatigue, generally feeling unwell Bilateral ear fullness Inspiratory pleuritic chest pain Abdominal pain associated with cough PMFSH Medical History Shakes Frequent falls Ascites Anemia CHF (congestive heart failure) Pancytopenia Anxiety HTN (hypertension) Tremor Chronic diarrhea Primary biliary cholangitis Breast cancer Family History Mother CAD (coronary artery disease) Sister Ovarian cancer Mental health disorder Surgical History H/O wrist surgery Transplant recipient Hx of colonoscopy Hx of esophagogastroduodenoscopy H/O: hysterectomy S/P hip replacement Liver transplant recipient Social History Household Members: Spouse Household Members Other:: , children Housing: House Do you presently have visiting nurse or other home services: No Alcohol intake: never Patient Tobacco Use Status: Former Tobacco user Tobacco use type: Cigarette e-Cigarette/Vaping Use: Never Used Advance Directives Date on File: 12/15/22 service: No Current occupational status: retired Cognitive needs: No Hearing needs: No Vision needs: Yes Meds Allergies Allergy/AdvReac Type Severity Reaction Status Date / Time hydromorphone [From Dilaudid] Allergy Severe Hallucinati Verified 02/28/23 05:43 ons losartan Allergy Intermediate Facial Verified 02/28/23 05:43 Swelling Sulfa (Sulfonamide AdvReac Severe Rash Verified 02/28/23 05:43 Antibiotics) Home Medications Medication Instructions Recorded Confirmed Last Taken Type ursodiol 500 mg tablet 1 tab PO BID 11/02/21 02/28/23 02/27/23 History cholecalciferol (vitamin D3) 25 25 mcg PO DAILY 04/25/22 02/28/23 02/27/23 History mcg (1,000 unit) capsule (Vitamin D3) tacrolimus 0.5 mg capsule, 0.5 mg PO Q12H 08/22/22 02/28/23 02/27/23 History immediate-release alprazolam 1 mg tablet 1 mg PO DAILY PRN Anxiety 09/04/22 02/28/23 02/27/23 History pyridoxine (vitamin B6) 100 mg 100 mg PO BID 09/04/22 02/28/23 02/27/23 History tablet colesevelam 625 mg tablet 1,875 mg PO BID 12/15/22 02/28/23 02/27/23 History vedolizumab 300 mg intravenous 300 mg IV Q8W 02/01/23 02/28/23 Unknown History solution (Entyvio) bupropion HCl 300 mg 24 hr tablet, 300 mg PO DAILY 02/28/23 02/28/23 02/27/23 History extended release furosemide 40 mg tablet 80 mg PO DAILY 02/28/23 02/28/23 02/27/23 History pantoprazole 40 mg tablet,delayed 40 mg PO DAILY 02/28/23 02/28/23 02/27/23 History release Physical Exam 2 Vital Signs and Narrative: Vital Signs: Last Vital Signs Temp 98 F 02/28/23 11:05 Pulse 92 02/28/23 11:05 Resp 18 02/28/23 11:05 BP 111/79 02/28/23 11:05 Pulse Ox 95 02/28/23 11:05 O2 Del Method Room Air 02/28/23 11:05 BMI result Body Mass Index 26.0 Constitutional: Alert, in no acute distress. Mental Status: Oriented to person, place and time. Eyes: Pupils are equal, round, and reactive to light. Ear, Nose, and Throat: Oropharynx clear, mucous membranes moist. Ears and nose without deformities. Trachea midline. Respiratory: Slight end-expiratory wheezing bilaterally. Cardiovascular: S1, S2, tachy. No murmurs, rubs, or gallops. Gastrointestinal: Abdomen firm, moderately distended, non-tender, non-distended. Neurologic: Cranial nerves II-XII are grossly intact bilaterally. No focal neurological deficits. Moves all extremities spontaneously. Skin: Warm, dry. Musculoskeletal: No cyanosis or clubbing. Extremities: No edema. Psychiatric: Normal mood and affect. Results Labs 02/28/23 07:38 02/28/23 07:38 Labs: Laboratory Results - last 24 hr 02/28/23 07:38 MCV 93.7 MCH 30.2 MCHC 32.2 RDW 15.9 Plt Count 128 L MPV 10.1 Immature Gran % (Auto) 0.2 Neut % (Auto) 66.0 Lymph % (Auto) 17.8 L [place] % (Auto) 12.4 H Eos % (Auto) 2.9 Baso % (Auto) 0.7 Lymph # (Auto) 0.8 L [place] # (Auto) 0.5 Eos # (Auto) 0.1 Baso # (Auto) 0.0 Abs Immat Gran (auto) 0.01 Absolute Neuts (auto) 2.8 Absolute Nucleated RBC 0.000 Nucleated RBC % (auto) 0.0 Anion Gap 9 L Estim Creat Clear Calc 58.1 Estimated GFR > 60 Random Glucose 96 Calcium 8.0 L D Magnesium 1.7 Total Bilirubin 1.7 H AST 44 H ALT 25 Alkaline Phosphatase 218 H Total Protein 6.0 L Albumin 2.5 L Lipase 45 Imaging Radiologist's Impressions: Impressions Chest X-Ray 02/28/23 06:00 IMPRESSION: Approximately 2 cm nodular density in the right hilar region may reflect sequelae of atelectasis/volume loss in the right middle lobe, somewhat more conspicuous than on the prior exam. Short-term radiographic follow-up is recommended. Small right pleural effusion. Chest CTA 02/28/23 08:22 IMPRESSION: No CTA evidence for pulmonary embolus. Larger right pleural effusion since the previous evaluation with right lower lobe compressive atelectatic change. Curvilinear consolidation along the superior aspect of the minor fissure and near the junction with the right major fissure suggestive of atelectasis or infiltrate. Small atelectasis or infiltrate at the medial right upper lobe near the apex. Intra-abdominal ascites. Other incidental findings as noted above. Assessment and Plan (1) Pleural effusion: Status: Acute (2) Pneumonia: Qualifiers: Pneumonia type: due to unspecified organism Laterality: right Lung location: upper lobe of lung Qualified Code(s): J18.9 - Pneumonia, unspecified organism Status: Acute Plan Pt is a 67-year-old female with a PMH significant for liver transplant in 2016 followed by [facility], primary biliary cholangitis, breast cancer,?who presents to the ED with?increased shortness of breath and productive cough over the past week. Pt will be admitted to the hospital for treatment and further evaluation of right pleural effusion and pneumonia that failed outpatient therapy. Pneumonia Patient with increasing shortness of breath, productive cough, general malaise/feeling unwell, CTA with evidence of multiple infiltrates in right lung Failed outpatient therapy on doxy and levofloxacin Patient meets sepsis criteria: Tachycardia, tachypnea; lactic acid WNL at 0.7 Patient started on broad spectrum antibiotics in ED Will treat with ceftriaxone and doxycycline, started 02/28/2023 Patient not hypoxic, not requiring supplemental O2 Will give duonebs, guaifenesin for cough, Sudafed for ear fullness Follow cultures Pleural effusion CTA showed larger right pleural effusion since previous Thoracic surgery consulted, pt underwent thoracocentesis with 500 ml of serious fluid removed Follow fluid cultures Liver transplant Pt on transplant list, followed by [facility] team Receives therapeutic paracenteses bi-weekly, last on last Sunday If pt does not improve in 24 hours or worsens, [facility] should be contacted at [phone] for possible transfer Continue tacrolimus, furosemide Mood disorder Continue alprazolam, bupropion HLD Continuye colesevelam Full Code Attending:?Dr. Gallagher DVT Prophylaxis: Lovenox Pt will require a hospitalization of at least two nights for treatment of?right pleural effusion with thoracentesis and pneumonia that failed outpatient therapy with IV antibiotics. Quality Stroke Does the patient have a stroke diagnosis?: No VTE Prior VTE?: No VTE Risk Level:: Medical - moderate - high VTE Device Contraindication: Treatment Not Indicated VTE Drug Contraindication: N/A - Med Ordered
--- NOTE | 2023-02-28 11:57 | PC.NURSE ---
per IR US staff messaged summer transporter to come get pt for procedure. vss. no distress.
--- NOTE | 2023-02-28 12:06 | PHA.MEDREC ---
Pharmacy Consult ? Medication Reconciliation Pharmacy has completed the medication reconciliation. Patient knew meds with help of list on phone
[2023-02-28] MEDS: LORazepam 2 MG/ML VIAL 0.5 MG IVPUSH (12:11)
--- NOTE | 2023-02-28 12:14 | PC.NURSE ---
pt heading to us for IR thoracentesis on monitor. vss. given ativan for anxiety pre-procedure- pt states normally takes before IR procedures
[2023-02-28] MEDS: Lidocaine HCl 1 % MPF 5 ML VIAL SUBCUT (12:45)
--- NOTE | 2023-02-28 12:58 | HO.RADPN ---
RADIOLOGY Narrative Narrative: Procedure Note: Right thoracentesis Indications; SOB, right hepatic hydrothorax 500 ml serous fluid removed and sent for analysis Post procedure CXR shows no pneumothorax Gabriel KAPOOR Interventional Radiology
--- NOTE | 2023-02-28 12:58 | PC.NURSE ---
pt remains in IR- pa syed donohue aware pt had ABX earlier. states draw cultures/lactic when pt returns
[2023-02-28 13:56] LABS: Lactic Acid 0.7 mmol/L (0.5-2.0)
--- NOTE | 2023-02-28 14:41 | PC.NURSE ---
messaged wilner donohue to notify pt family will bring in 2 home meds after she spoke w [facility] pharmacist re: home meds. also wilner lynch made aware pt requesting albuterol- increased cough. +o2 sat on RA. RT at bedside eval'ing per bronch protocol. talks full sentences
[2023-02-28] MEDS: Albuterol Sulfate 2.5 MG, Albuterol/Iprat 2.5/0.5MG 3 ML 3 ML INHALE (14:59)
[2023-02-28 15:03] LABS: pH Pleural Fluid 7.52
[2023-02-28 15:14] LABS: LDH Pleural Fluid 109 U/L; Total Protein Pleural Fluid 3.2 GM/DL
[2023-02-28] MEDS: Enoxaparin Sodium 40 MG/0.4 ML SYRINGE SUBCUT (17:00)
[2023-02-28] MEDS: Doxycycline Hyclate 100 MG in 0.9 % Sodium Chloride 250 ML 166.67 MG IV (17:00)
[2023-02-28] MEDS: 0.9 % Sodium Chloride Flush 3 ML SYRINGE IVFLUSH (17:09)
[2023-02-28] MEDS: cefTRIAXone sodium 1 GM in 0.9 % Sodium Chloride 50 ML IV (20:18)
--- NOTE | 2023-02-28 20:33 | MHC.EDTECH ---
This pct assumed care of pt at 1900 ,vitals taken ,Pt had a few olga cracker and some water for snack ,Pt comfortable no apparent distress noted ,Call jarquin within Pt reach ,will continue to monitor .
[2023-02-28] MEDS: UrsodioL 300 MG CAPSULE PO (21:43)
[2023-02-28] MEDS: Pyridoxine HCl (Vitamin B6) 50 MG TABLET 100 MG PO (21:43)
[2023-02-28] MEDS: Tacrolimus 0.5 MG CAPSULE PO (21:43)
[2023-02-28] MEDS: Gabapentin 300 MG CAPSULE 600 MG PO (21:43)
[2023-02-28] MEDS: Melatonin 3 MG TABLET 6 MG PO (21:44)
[2023-03-01] MEDS: 0.9 % Sodium Chloride Flush 3 ML SYRINGE IVFLUSH ×3 (00:03→16:43)
--- NOTE | 2023-03-01 00:16 | PC.NURSE ---
pt assessed, oob to the bathroom w/o any difficulties. denies any pain, medicated per MAR
[2023-03-01] MEDS: Doxycycline Hyclate 100 MG in 0.9 % Sodium Chloride 250 ML 166.67 MG IV ×2 (04:09→16:35)
[2023-03-01] MEDS: Albuterol Sulfate 90 MCG 8 GM INHALER 2 PUFF INHALE (04:55)
--- NOTE | 2023-03-01 04:56 | PC.NURSE ---
Addendum entered by Kassandra Khanna RN 03/01/23 05:07: pt medicated per MAY Original Note: resp therapist in with pt, pt ambulated to bathroom without any assistance, returned sob and coughing
[2023-03-01] MEDS: ALPRAZolam 0.5 MG TABLET 1 MG PO (04:59)
[2023-03-01] MEDS: guaiFENesin DM 100/10/5 ML 5 ML SYRUP PO (04:59)
[2023-03-01 05:00] VITALS: PULSE 95; RESP 16; O2SAT 97
[2023-03-01 05:30] VITALS: BP 126/77; PULSE 100; RESP 16; TEMP 36.2; O2SAT 97
[2023-03-01 05:40] LABS: Hemoglobin 10.4 g/dl (12.0-16.0); PLT CLUMP 1; Red Cell Distribution Width 16.1 % (11.0-16.0)
[2023-03-01 05:41] LABS: Hematocrit 32.4 % (37.0-47.0); Mean Corpuscular HGB Conc 32.1 g/dl (31.0-35.0); Mean Corpuscular Hemoglobin 30.1 pg (27.0-33.0); Mean Corpuscular Volume 93.9 fL (80.0-98.0); Mean Platelet Volume 10.1 fL (9.4-12.3); Red Blood Count 3.45 X10*6/uL (4.20-5.50)
[2023-03-01 05:44] LABS: Platelet Count 125 X10*3/uL (160-400); White Blood Count 4.5 X10*3/uL (4.8-10.8)
[2023-03-01] MEDS: Omeprazole 20 MG CAPSULE.DR PO (06:15)
[2023-03-01 08:08] LABS: Anion Gap 9 (12-20); Blood Urea Nitrogen 9 mg/dL (9-16); Calcium 7.6 mg/dL (8.4-10.2); Carbon Dioxide 23 mmol/L (22-29); Chloride 113 mmol/L (96-108); Estimated Glomerular Filt Rate > 60; Glucose Random 105 mg/dL (60-115); Potassium 3.1 mmol/L (3.3-5.1); Sodium 142 mmol/L (135-145)
[2023-03-01] MEDS: Cholecalciferol (Vitamin D3) 25 MCG TABLET PO (08:56)
[2023-03-01] MEDS: Furosemide 40 MG TABLET 80 MG PO (08:56)
[2023-03-01] MEDS: Cyanocobalamin (Vitamin B-12) 1,000 MCG TABLET 1000 MCG PO (08:56)
[2023-03-01] MEDS: UrsodioL 300 MG CAPSULE PO ×2 (08:56→21:22)
[2023-03-01] MEDS: Tacrolimus 0.5 MG CAPSULE PO ×2 (08:56→21:22)
[2023-03-01] MEDS: buPROPion HCl XL 300 MG TAB.ER.24H PO (08:56)
[2023-03-01] MEDS: Pyridoxine HCl (Vitamin B6) 50 MG TABLET 100 MG PO ×2 (08:56→21:22)
--- NOTE | 2023-03-01 09:16 | HO.THORCONS ---
History of Present Illness Consult details Consult date: 02/28/23 Narrative: patient is an unfortunate 59-year-old female status post liver transplant who has a plethora of medical problems. One of these include limited transplant function and the patient requires very frequent paracentesis. She also will occasion require a right thoracentesis because of a sympathetic pleural effusions/right hydro thorax, highly likely related to her profound ascites. Patient presents with a similar such complaint today. Patient was worked up in the emergency department and part of that included a right thoracentesis, or approximately 500 cc of right pleural fluid was drained and patient had a moderate improvement of her respiratory status. Chart was reviewed , along with x-rays and CT scans, and patient evaluated. [facility] Past Medical History Medical History Shakes Frequent falls Ascites Anemia CHF (congestive heart failure) Pancytopenia Anxiety HTN (hypertension) Tremor Chronic diarrhea Primary biliary cholangitis Breast cancer Family History Family History Mother CAD (coronary artery disease) Sister Ovarian cancer Mental health disorder Surgical History Surgical History H/O wrist surgery Transplant recipient Hx of colonoscopy Hx of esophagogastroduodenoscopy H/O: hysterectomy S/P hip replacement Liver transplant recipient Social History Social History Household Members: Spouse Household Members Other:: , children Housing: House Do you presently have visiting nurse or other home services: No Alcohol intake: never Patient Tobacco Use Status: Former Tobacco user Tobacco use type: Cigarette Smoked in Last 30 Days: No e-Cigarette/Vaping Use: Never Used Use of substances other than those prescribed or required for medical reasons: No Advance Directives: Yes Advance Directives on File: Yes Advance Directives Date on File: 12/15/22 service: No Current occupational status: retired Cognitive needs: No Hearing needs: No Vision needs: Yes Meds Allergies Allergy/AdvReac Type Severity Reaction Status Date / Time hydromorphone [From Dilaudid] Allergy Severe Hallucinati Verified 02/28/23 05:43 ons losartan Allergy Intermediate Facial Verified 02/28/23 05:43 Swelling Sulfa (Sulfonamide AdvReac Severe Rash Verified 02/28/23 05:43 Antibiotics) Active Medications: Current Medications Acetaminophen (Acetaminophen 325 Mg Tablet) 650 mg PO Q6H PRN PRN Reason: Pain, Mild (Pain Scale 1-3) Albuterol Sulfate (Albuterol Sulfate 90 Mcg 8 Gm Inhaler) 2 puff INHALE Q4H PRN PRN Reason: shortness of breath or wheezing Last Admin: 03/01/23 04:55 Dose: 2 puff Albuterol/Ipratropium (Albuterol/Iprat 2.5/0.5mg 3 Ml Ampul.Neb) 3 ml INHALE RQ4H WHILE AWAKE [facility] Last Admin: 03/01/23 07:35 Dose: Not Given Alprazolam (Alprazolam 0.5 Mg Tablet) 1 mg PO DAILY PRN PRN Reason: Anxiety Last Admin: 03/01/23 04:59 Dose: 1 mg Bupropion HCl (Bupropion Hcl Xl 300 Mg Tab.Er.24h) 300 mg PO DAILY [facility] Last Admin: 03/01/23 08:56 Dose: 300 mg Cholestyramine Resin (Cholestyramine (With Sugar) 4 Gm Powd.Pack) 4 gm PO TID [facility] Last Admin: 03/01/23 08:59 Dose: Not Given Cyanocobalamin (Cyanocobalamin (Vitamin B-12) 1,000 Mcg Tablet) 1,000 mcg PO DAILY [facility] Docusate Sodium (Docusate Sodium 100 Mg Capsule) 100 mg PO DAILY PRN PRN Reason: Constipation Enoxaparin Sodium (Enoxaparin Sodium 40 Mg/0.4 Ml Syringe) 40 mg SUBCUT Q24H [facility] Last Admin: 02/28/23 17:00 Dose: 40 mg Furosemide (Furosemide 40 Mg Tablet) 80 mg PO DAILY [facility]; Protocol Last Admin: 03/01/23 08:56 Dose: 80 mg Gabapentin (Gabapentin 300 Mg Capsule) 600 mg PO BEDTIME [facility] Last Admin: 02/28/23 21:43 Dose: 600 mg Guaifenesin/Dextromethorphan (Guaifenesin Dm 100/10/5 Ml 5 Ml Syrup) 5 ml PO Q6H PRN PRN Reason: cough Last Admin: 03/01/23 04:59 Dose: 5 ml Ceftriaxone Sodium 1 gm/ (Sodium Chloride) 50 mls @ 100 mls/hr IV Q24H [facility] Last Infusion: 02/28/23 21:09 Dose: Infused Doxycycline Hyclate 100 mg/ (Sodium Chloride) 250 mls @ 166.67 mls/hr IV Q12H [facility] Last Infusion: 03/01/23 06:03 Dose: Infused Melatonin (Melatonin 3 Mg Tablet) 6 mg PO BEDTIME PRN PRN Reason: Insomnia Last Admin: 02/28/23 21:44 Dose: 6 mg Omeprazole (Omeprazole 20 Mg Capsule.Dr) 20 mg PO DAILY@0630 [facility] Last Admin: 03/01/23 06:15 Dose: 20 mg Ondansetron HCl (Ondansetron Hcl 4 Mg/2 Ml Vial) 4 mg IVPUSH Q8H PRN PRN Reason: Nausea and Vomiting Pseudoephedrine HCl (Pseudoephedrine Hcl 30 Mg Tablet) 30 mg PO Q6H PRN PRN Reason: Ear fullness/congestion Pyridoxine HCl (Pyridoxine Hcl (Vitamin B6) 50 Mg Tablet) 100 mg PO BID [facility] Last Admin: 03/01/23 08:56 Dose: 100 mg Sodium Chloride (0.9 % Sodium Chloride Flush 3 Ml Syringe) 3 ml IVFLUSH QSHIFT [facility] Last Admin: 03/01/23 08:56 Dose: 3 ml Tacrolimus (Tacrolimus 0.5 Mg Capsule) 0.5 mg PO BID [facility] Last Admin: 03/01/23 08:56 Dose: 0.5 mg Ursodiol (Ursodiol 300 Mg Capsule) 300 mg PO BID [facility] Last Admin: 03/01/23 08:56 Dose: 300 mg Vitamin D (Cholecalciferol (Vitamin D3) 25 Mcg Tablet) 25 mcg PO DAILY [facility] Last Admin: 03/01/23 08:56 Dose: 25 mcg Home Medications Medication Instructions Recorded Confirmed Last Taken Type ursodiol 500 mg tablet 1 tab PO BID 11/02/21 02/28/23 02/27/23 History cholecalciferol (vitamin D3) 25 25 mcg PO DAILY 04/25/22 02/28/23 02/27/23 History mcg (1,000 unit) capsule (Vitamin D3) tacrolimus 0.5 mg capsule, 0.5 mg PO Q12H 08/22/22 02/28/23 02/27/23 History immediate-release alprazolam 1 mg tablet 1 mg PO DAILY PRN Anxiety 06/08/2202/28/23 02/27/23 History pyridoxine (vitamin B6) 100 mg 100 mg PO BID 09/04/22 02/28/23 02/27/23 History tablet colesevelam 625 mg tablet 1,875 mg PO BID 12/15/22 02/28/23 02/27/23 History vedolizumab 300 mg intravenous 300 mg IV Q8W 02/01/23 02/28/23 Unknown History solution (Entyvio) bupropion HCl 300 mg 24 hr tablet, 300 mg PO DAILY 02/28/23 02/28/23 02/27/23 History extended release furosemide 40 mg tablet 80 mg PO DAILY 02/28/23 02/28/23 02/27/23 History pantoprazole 40 mg tablet,delayed 40 mg PO DAILY 02/28/23 02/28/23 02/27/23 History release Physical Exam Vital Signs: Vital Signs: Last Vital Signs Temp 97.1 F 03/01/23 05:30 Pulse 100 03/01/23 05:30 Resp 16 03/01/23 05:30 BP 126/77 03/01/23 05:30 Pulse Ox 97 03/01/23 05:30 O2 Del Method Room Air 03/01/23 05:30 BMI result Body Mass Index 26.0 Const: Other: thin, ill-appearing but stable appearance. Chest: Other: Chest breath sounds bilaterally. GI: Other: Moderate distended, soft, nontender Results Labs 03/01/23 05:20 03/01/23 05:20 Labs: Abnormal lab results 03/01/23 Range/Units 05:20 WBC 4.5 L (4.8-10.8) X10*3/uL RBC 3.45 L (4.20-5.50) X10*6/uL Hgb 10.4 L (12.0-16.0) g/dl Hct 32.4 L (37.0-47.0) % RDW 16.1 H (11.0-16.0) % Plt Count 125 L (160-400) X10*3/uL Potassium 3.1 L (3.3-5.1) mmol/L Chloride 113 H (96-108) mmol/L Anion Gap 9 L (12-20) Calcium 7.6 L (8.4-10.2) mg/dL Short CBC 03/01/23 Range/Units 05:20 WBC 4.5 L (4.8-10.8) X10*3/uL Hgb 10.4 L (12.0-16.0) g/dl Hct 32.4 L (37.0-47.0) % Plt Count 125 L (160-400) X10*3/uL BMP 03/01/23 05:20 Sodium 142 Potassium 3.1 L Chloride 113 H Carbon Dioxide 23 BUN 9 Creatinine 0.71 Calcium 7.6 L All other labs normal. Assessment and Plan (1) Pleural effusion: Status: Acute Plan the present time, no acute thoracic surgical issues. Patient is being followed by the [facility] regarding her liver status and potential for new liver transplantation. Continue restorative measures. According to ER consult no, if patient's status deteriorates, patient should be transferred back to [facility] per their recommendation. Will follow-up p.r.n.. Procedures Date of Service Date of Service: 03/01/23
[2023-03-01] MEDS: Albuterol/Iprat 2.5/0.5MG 3 ML AMPUL.NEB INHALE ×2 (11:28→15:43)
[2023-03-01 11:29] VITALS: PULSE 94; RESP 16; O2SAT 99
--- NOTE | 2023-03-01 11:43 | PC.NURSE ---
Patient alert and oriented, x3. Sleepy, but easily arousable. Denies pain, increased SOB. Lung sounds clear, diminished in bases. Abdomen distended, +bowel sounds. Ambulated to bathroom independently. New IV placed, 20 R lower arm. All needs met at this time.
[2023-03-01 12:06] LABS: MN% 90.1 %; PMN% 9.9 %; RBC Pleural Fluid 0.002 X10*6/uL; WBC Pleural Fluid 1.007 X10*3/uL
[2023-03-01] MEDS: Potassium Chloride Packet 20 MEQ PACKET 40 MEQ PO (12:46)
[2023-03-01 13:41] LABS: BF Shift QC OK YES; Lymphocytes Pleural Fluid 35 %; Monocytes Pleural Fluid 6 %; Neutrophils Pleural Fluid 11 %; Other Cells Plerual Fl 48 %
[2023-03-01 13:51] VITALS: BP 100/64; PULSE 96; RESP 18; TEMP 36.3; O2SAT 98
[2023-03-01 15:45] VITALS: PULSE 100; RESP 18; O2SAT 97
[2023-03-01] MEDS: Enoxaparin Sodium 40 MG/0.4 ML SYRINGE SUBCUT (16:41)
--- NOTE | 2023-03-01 16:54 | P.PNIM_ITS ---
Subjective Subjective Date of Service: 03/01/23 Interval History: seen and examined this morning follow up for pneumonia still having cough, but overall feeling better Review of Systems Review of Systems: Yes all other systems are reviewed and are negative Constitutional Constitutional: Denies chills and Denies fever(s) Cardiovascular Cardiovascular: Denies chest pain and Denies palpitations Respiratory Respiratory: Reports cough Gastrointestinal Gastrointestinal: Denies abdominal pain Endocrine Endocrine: Denies palpitations Physical Exam 2 Vital Signs: Vital Signs: Last Vital Signs Temp 97.4 F 03/01/23 13:51 Pulse 100 03/01/23 15:45 Resp 18 03/01/23 15:45 BP 100/64 03/01/23 13:51 Pulse Ox 98 03/01/23 13:51 O2 Del Method Room Air 03/01/23 13:51 BMI result Body Mass Index 26.0 Const: General: cooperative, comfortable, no acute distress, alert and awake Nutritional Appearance: average body habitus Orientation/consciousness: p atient oriented x3 Resp: Effort & Inspection: normal respiratory effort, able to speak in complete sentences, no respiratory distress and no use of accessory muscles Cardio: Rate: regular rate GI: Other: softly distended; non-tender Neuro: General: patient oriented x3, moves all extremities and CN's II-XI intact bilaterally Objective Data Active Medications Acetaminophen (Acetaminophen 325 Mg Tablet) 650 mg PO Q6H PRN PRN Reason: Pain, Mild (Pain Scale 1-3) Albuterol Sulfate (Albuterol Sulfate 90 Mcg 8 Gm Inhaler) 2 puff INHALE Q4H PRN PRN Reason: shortness of breath or wheezing Last Admin: 03/01/23 04:55 Dose: 2 puff Documented By: LIZBETH Albuterol/Ipratropium (Albuterol/Iprat 2.5/0.5mg 3 Ml Ampul.Neb) 3 ml INHALE RQ4H WHILE AWAKE [facility] Last Admin: 03/01/23 15:43 Dose: 3 ml Documented By: CHRISTINA Alprazolam (Alprazolam 0.5 Mg Tablet) 1 mg PO DAILY PRN PRN Reason: Anxiety Last Admin: 03/01/23 04:59 Dose: 1 mg Documented By: LUIS FELIPE Bupropion HCl (Bupropion Hcl Xl 300 Mg Tab.Er.24h) 300 mg PO DAILY [facility] Last Admin: 03/01/23 08:56 Dose: 300 mg Documented By: NICKOLAS Cyanocobalamin (Cyanocobalamin (Vitamin B-12) 1,000 Mcg Tablet) 1,000 mcg PO DAILY [facility] Last Admin: 03/01/23 08:56 Dose: 1,000 mcg Documented By: NICKOLAS Comments: barcode discarded on administration Docusate Sodium (Docusate Sodium 100 Mg Capsule) 100 mg PO DAILY PRN PRN Reason: Constipation Enoxaparin Sodium (Enoxaparin Sodium 40 Mg/0.4 Ml Syringe) 40 mg SUBCUT Q24H [facility] Last Admin: 03/01/23 16:41 Dose: 40 mg Documented By: CHINO Furosemide (Furosemide 40 Mg Tablet) 80 mg PO DAILY [facility]; Protocol Last Admin: 03/01/23 08:56 Dose: 80 mg Documented By: NICKOLAS Gabapentin (Gabapentin 300 Mg Capsule) 600 mg PO BEDTIME [facility] Last Admin: 02/28/23 21:43 Dose: 600 mg Documented By: LUIS FELIPE Guaifenesin/Dextromethorphan (Guaifenesin Dm 100/10/5 Ml 5 Ml Syrup) 5 ml PO Q6H PRN PRN Reason: cough Last Admin: 03/01/23 04:59 Dose: 5 ml Documented By: LUIS FELIPE Ceftriaxone Sodium 1 gm/ (Sodium Chloride) 50 mls @ 100 mls/hr IV Q24H [facility] Last Infusion: 02/28/23 21:09 Dose: Infused Documented By: LUIS FELIPE Doxycycline Hyclate 100 mg/ (Sodium Chloride) 250 mls @ 166.67 mls/hr IV Q12H [facility] Last Admin: 03/01/23 16:35 Dose: 166.67 mls/hr Documented By: CHINO Melatonin (Melatonin 3 Mg Tablet) 6 mg PO BEDTIME PRN PRN Reason: Insomnia Last Admin: 02/28/23 21:44 Dose: 6 mg Documented By: LUIS FELIPE Pt Own Medication ( Colesevelam 625 Mg Tablet) 1,250 mg PO BID [facility] Omeprazole (Omeprazole 20 Mg Capsule.) 20 mg PO DAILY@0630 [facility] Last Admin: 03/01/23 06:15 Dose: 20 mg Documented By: LUIS FELIPE Ondansetron HCl (Ondansetron Hcl 4 Mg/2 Ml Vial) 4 mg IVPUSH Q8H PRN PRN Reason: Nausea and Vomiting Pseudoephedrine HCl (Pseudoephedrine Hcl 30 Mg Tablet) 30 mg PO Q6H PRN PRN Reason: Ear fullness/congestion Pyridoxine HCl (Pyridoxine Hcl (Vitamin B6) 50 Mg Tablet) 100 mg PO BID [facility] Last Admin: 03/01/23 08:56 Dose: 100 mg Documented By: NICKOLAS Sodium Chloride (0.9 % Sodium Chloride Flush 3 Ml Syringe) 3 ml IVFLUSH QSHIFT [facility] Last Admin: 03/01/23 16:43 Dose: 3 ml Documented By: FOGBHASKAR Tacrolimus (Tacrolimus 0.5 Mg Capsule) 0.5 mg PO BID [facility] Last Admin: 03/01/23 08:56 Dose: 0.5 mg Documented By: NICKOLAS Ursodiol (Ursodiol 300 Mg Capsule) 300 mg PO BID [facility] Last Admin: 03/01/23 08:56 Dose: 300 mg Documented By: NICKOLAS Vitamin D (Cholecalciferol (Vitamin D3) 25 Mcg Tablet) 25 mcg PO DAILY [facility] Last Admin: 03/01/23 08:56 Dose: 25 mcg Documented By: NICKOLAS Labs 03/01/23 05:20 03/01/23 05:20 Labs: Laboratory Results - last 24 hr 02/28/23 03/01/23 12:28 05:20 MCV 93.9 MCH 30.1 MCHC 32.1 RDW 16.1 H Plt Count 125 L MPV 10.1 Absolute Nucleated RBC 0.000 Nucleated RBC % (auto) 0.0 Anion Gap 9 L Estim Creat Clear Calc 59.0 Estimated GFR > 60 Random Glucose 105 Calcium 7.6 L Pleural WBC 1.007 Pleural RBC 0.002 Pleural Neutrophils 11 Pleural Lymphocytes 35 Pleural Monocytes 6 Pleural Other Cells 48 Microbiology Microbiology Results: Microbiology 02/28/23 13:49 Blood Culture - Preliminary Blood - Venous No growth after 24 hours. 02/28/23 13:28 Blood Culture - Preliminary Blood - Venous No growth after 24 hours. 02/28/23 12:28 Gram Stain - Final Thoracentesis Fluid Anaerobic Culture - Preliminary No growth to date. Body Fluid Culture - Preliminary No growth to date. Assessment and Plan (1) Pneumonia: Status: Acute (2) Pleural effusion: Status: Acute Plan Pt is a 67-year-old female with a PMH significant for liver transplant in 2016 followed by [facility], primary biliary cholangitis, breast cancer,?who presents to the ED with?increased shortness of breath and productive cough over the past week. Pt will be admitted to the hospital for treatment and further evaluation of right pleural effusion and pneumonia that failed outpatient therapy. CAP Patient with increasing shortness of breath, productive cough, general malaise/feeling unwell, CTA with evidence of multiple infiltrates in right lung Failed outpatient therapy on doxy and levofloxacin met sepsis criteria with Tachycardia, tachypnea; lactic acid WNL at 0.7 Patient started on broad spectrum antibiotics in ED continue IV ceftriaxone and doxycycline, started 02/28/2023 Patient not hypoxic, not requiring supplemental O2 Will give duonebs, guaifenesin for cough, Sudafed for ear fullness blood cultures negative to date Pleural effusion CTA showed larger right pleural effusion since previous. likely due to underlying liver dz pt underwent thoracocentesis 02/28 with 500 ml of serious fluid removed seen by thoracic surgery - no further work up required at this time Follow fluid cultures, no growth to date hypokalemia replace and follow Liver transplant Pt on transplant list, followed by [facility] Liver transplant team Receives therapeutic paracenteses bi-weekly, last 02/20 If pt does not improve in 24 hours or worsens, [facility] should be contacted at [phone] for possible transfer Continue tacrolimus, furosemide thrombocytopenia chronic, r/t liver dz Mood disorder Continue alprazolam, bupropion HLD Continue colesevelam Full Code Attending:?Dr. Gallagher DVT Prophylaxis: Lovenox Pt will require a hospitalization of at least two nights for treatment of?right pleural effusion with thoracentesis and pneumonia that failed outpatient therapy with IV antibiotics. Quality Stroke Does the patient have a stroke diagnosis?: No VTE Prior VTE?: No VTE Risk Level:: Medical - moderate - high VTE Device Contraindication: Treatment Not Indicated VTE Drug Contraindication: N/A - Med Ordered
--- NOTE | 2023-03-01 17:16 | PC.NURSE ---
assumed care of pt at 1500, offering no complaints. medical referral coordinator per MAY.
[2023-03-01 17:38] LABS: Lactate Dehydrogenase 176 U/L (122-220)
--- NOTE | 2023-03-01 19:34 | PC.NURSE ---
Assumed care of the pt at 1900. Pt is sleeping in bed at this time. IV antibiotics taken down and IV flushed. Pt waiting for admit bed.
[2023-03-01] MEDS: cefTRIAXone sodium 1 GM in 0.9 % Sodium Chloride 50 ML IV (21:04)
[2023-03-01] MEDS: Gabapentin 300 MG CAPSULE 600 MG PO (21:21)
[2023-03-01 21:36] VITALS: BP 96/52; PULSE 97; RESP 16; TEMP 36.6; O2SAT 96
[2023-03-02] VITALS (8 sets, daily range): BP systolic 104–140; BP diastolic 68–91; PULSE 77–117; RESP 18–22; TEMP 36.5–37.2; O2SAT 96–100; BMI 24.6
--- NOTE | 2023-03-02 | ECG_ITS ---
Test Reason : TACHYCARDIA Blood Pressure : / mmHG Vent. Rate : 110 BPM Atrial Rate : 110 BPM P-R Int : 132 ms QRS Dur : 064 ms QT Int : 346 ms P-R-T Axes : 000 -10 001 degrees QTc Int : 468 ms Sinus tachycardia Low voltage QRS Inferior infarct , age undetermined Cannot rule out Anteroseptal infarct (cited on or before 15-DEC-2022) Abnormal ECG When compared with ECG of 15-DEC-2022 11:09, Questionable change in initial forces of Anterior leads Referred By: Sydnie Ng Electronically Signed By:JESSICA KEMP MD
[2023-03-02] MEDS: 0.9 % Sodium Chloride Flush 3 ML SYRINGE IVFLUSH ×2 (02:50→08:10)
[2023-03-02] MEDS: Doxycycline Hyclate 100 MG in 0.9 % Sodium Chloride 250 ML 166.67 MG IV (04:21)
[2023-03-02] MEDS: Omeprazole 20 MG CAPSULE.DR PO (05:46)
--- NOTE | 2023-03-02 06:04 | PC.NURSE ---
Pt resting comfortably in bed at this time. Took pills whole. No complaints at this time. Pt waiting bed assignment.
[2023-03-02 06:58] LABS: Alanine Aminotransferase 22 U/L (0-31); Albumin Level 2.3 g/dL (3.5-5.0); Alkaline Phosphatase 201 U/L (39-117); Anion Gap 10 (12-20); Aspartate Amino Transferase 37 U/L (5-31); Bilirubin Direct 1.2 mg/dL (0.0-0.5); Bilirubin Total 1.6 mg/dL (0.0-1.0); Blood Urea Nitrogen 10 mg/dL (9-16); Calcium 7.4 mg/dL (8.4-10.2); Carbon Dioxide 23 mmol/L (22-29); Chloride 113 mmol/L (96-108); Estimated Glomerular Filt Rate > 60; Glucose Random 95 mg/dL (60-115); Potassium 3.2 mmol/L (3.3-5.1); Sodium 143 mmol/L (135-145); Total Protein 5.4 g/dL (6.5-8.0)
--- NOTE | 2023-03-02 07:44 | PC.NURSE ---
Ortho consult down to see pt
--- NOTE | 2023-03-02 07:51 | PM.CNOR ---
History of Present Illness HPI Consult date: 03/02/23 Chief complaint: Pneumonia,pleural effusion Narrative: 67 yo female who was admitted to the hospital for pneumonia. She has been followed in our office for right 5th base of the metatarsal fracture. She has been wbat without the boot and states she only has occassional discomfort, doing well otherwise. Review of Systems Review of Systems: per hpi [facility] Past Medical History Medical History Shakes Frequent falls Ascites Anemia CHF (congestive heart failure) Pancytopenia Anxiety HTN (hypertension) Tremor Chronic diarrhea Primary biliary cholangitis Breast cancer Family History Family History Mother CAD (coronary artery disease) Sister Ovarian cancer Mental health disorder Surgical History Surgical History H/O wrist surgery Transplant recipient Hx of colonoscopy Hx of esophagogastroduodenoscopy H/O: hysterectomy S/P hip replacement Liver transplant recipient Social History Social History Household Members: Spouse Household Members Other:: , children Housing: House Do you presently have visiting nurse or other home services: No Alcohol intake: never Patient Tobacco Use Status: Former Tobacco user Tobacco use type: Cigarette Smoked in Last 30 Days: No e-Cigarette/Vaping Use: Never Used Use of substances other than those prescribed or required for medical reasons: No Advance Directives: Yes Advance Directives on File: Yes Advance Directives Date on File: 12/15/22 service: No Current occupational status: retired Cognitive needs: No Hearing needs: No Vision needs: Yes Meds Allergies Allergy/AdvReac Type Severity Reaction Status Date / Time hydromorphone [From Dilaudid] Allergy Severe Hallucinati Verified 02/28/23 05:43 ons losartan Allergy Intermediate Facial Verified 02/28/23 05:43 Swelling Sulfa (Sulfonamide AdvReac Severe Rash Verified 02/28/23 05:43 Antibiotics) Active Medications: Current Medications Acetaminophen (Acetaminophen 325 Mg Tablet) 650 mg PO Q6H PRN PRN Reason: Pain, Mild (Pain Scale 1-3) Albuterol Sulfate (Albuterol Sulfate 90 Mcg 8 Gm Inhaler) 2 puff INHALE Q4H PRN PRN Reason: shortness of breath or wheezing Last Admin: 03/01/23 04:55 Dose: 2 puff Albuterol/Ipratropium (Albuterol/Iprat 2.5/0.5mg 3 Ml Ampul.Neb) 3 ml INHALE RQ4H WHILE AWAKE SHERMAN Last Admin: 03/01/23 20:23 Dose: Not Given Alprazolam (Alprazolam 0.5 Mg Tablet) 1 mg PO DAILY PRN PRN Reason: Anxiety Last Admin: 03/01/23 04:59 Dose: 1 mg Bupropion HCl (Bupropion Hcl Xl 300 Mg Tab.Er.24h) 300 mg PO DAILY SHERMAN Last Admin: 03/01/23 08:56 Dose: 300 mg Cyanocobalamin (Cyanocobalamin (Vitamin B-12) 1,000 Mcg Tablet) 1,000 mcg PO DAILY SHERMAN Last Admin: 03/01/23 08:56 Dose: 1,000 mcg Docusate Sodium (Docusate Sodium 100 Mg Capsule) 100 mg PO DAILY PRN PRN Reason: Constipation Enoxaparin Sodium (Enoxaparin Sodium 40 Mg/0.4 Ml Syringe) 40 mg SUBCUT Q24H SHERMAN Last Admin: 03/01/23 16:41 Dose: 40 mg Furosemide (Furosemide 40 Mg Tablet) 80 mg PO DAILY [facility]; Protocol Last Admin: 03/01/23 08:56 Dose: 80 mg Gabapentin (Gabapentin 300 Mg Capsule) 600 mg PO BEDTIME SHERMAN Last Admin: 03/01/23 21:21 Dose: 600 mg Guaifenesin/Dextromethorphan (Guaifenesin Dm 100/10/5 Ml 5 Ml Syrup) 5 ml PO Q6H PRN PRN Reason: cough Last Admin: 03/01/23 04:59 Dose: 5 ml Ceftriaxone Sodium 1 gm/ (Sodium Chloride) 50 mls @ 100 mls/hr IV Q24H SHERMAN Last Infusion: 03/01/23 21:38 Dose: Infused Doxycycline Hyclate 100 mg/ (Sodium Chloride) 250 mls @ 166.67 mls/hr IV Q12H SHERMAN Last Infusion: 03/02/23 06:21 Dose: Infused Melatonin (Melatonin 3 Mg Tablet) 6 mg PO BEDTIME PRN PRN Reason: Insomnia Last Admin: 02/28/23 21:44 Dose: 6 mg Pt Own Medication ( Colesevelam 625 Mg Tablet) 1,250 mg PO BID [facility] Last Admin: 03/01/23 21:22 Dose: 1,250 mg Omeprazole (Omeprazole 20 Mg Capsule.Dr) 20 mg PO DAILY@0630 [facility] Last Admin: 03/02/23 05:46 Dose: 20 mg Ondansetron HCl (Ondansetron Hcl 4 Mg/2 Ml Vial) 4 mg IVPUSH Q8H PRN PRN Reason: Nausea and Vomiting Pseudoephedrine HCl (Pseudoephedrine Hcl 30 Mg Tablet) 30 mg PO Q6H PRN PRN Reason: Ear fullness/congestion Pyridoxine HCl (Pyridoxine Hcl (Vitamin B6) 50 Mg Tablet) 100 mg PO BID [facility] Last Admin: 03/01/23 21:22 Dose: 100 mg Sodium Chloride (0.9 % Sodium Chloride Flush 3 Ml Syringe) 3 ml IVFLUSH QSHIFT [facility] Last Admin: 03/02/23 02:50 Dose: 3 ml Tacrolimus (Tacrolimus 0.5 Mg Capsule) 0.5 mg PO BID [facility] Last Admin: 03/01/23 21:22 Dose: 0.5 mg Ursodiol (Ursodiol 300 Mg Capsule) 300 mg PO BID [facility] Last Admin: 03/01/23 21:22 Dose: 300 mg Vitamin D (Cholecalciferol (Vitamin D3) 25 Mcg Tablet) 25 mcg PO DAILY [facility] Last Admin: 03/01/23 08:56 Dose: 25 mcg Home Medications Medication Instructions Recorded Confirmed Last Taken Type ursodiol 500 mg tablet 1 tab PO BID 11/02/21 02/28/23 02/27/23 History cholecalciferol (vitamin D3) 25 25 mcg PO DAILY 04/25/22 02/28/23 02/27/23 History mcg (1,000 unit) capsule (Vitamin D3) tacrolimus 0.5 mg capsule, 0.5 mg PO Q12H 08/22/22 02/28/23 02/27/23 History immediate-release alprazolam 1 mg tablet 1 mg PO DAILY PRN Anxiety 09/04/22 02/28/23 02/27/23 History pyridoxine (vitamin B6) 100 mg 100 mg PO BID 09/04/22 02/28/23 02/27/23 History tablet vedolizumab 300 mg intravenous 300 mg IV Q8W 02/01/23 02/28/23 Unknown History solution (Entyvio) bupropion HCl 300 mg 24 hr tablet, 300 mg PO DAILY 02/28/23 02/28/23 02/27/23 History extended release furosemide 40 mg tablet 80 mg PO DAILY 02/28/23 02/28/23 02/27/23 History pantoprazole 40 mg tablet,delayed 40 mg PO DAILY 02/28/23 02/28/23 02/27/23 History release colesevelam 625 mg tablet 1,250 mg PO BID 03/01/23 03/01/23 Unknown History Physical Exam Vital Signs: Vital Signs: Last Vital Signs Temp 97.9 F 03/01/23 21:36 Pulse 97 03/01/23 21:36 Resp 16 03/01/23 21:36 BP 96/52 L 03/01/23 21:36 Pulse Ox 96 03/01/23 21:36 O2 Del Method Room Air 03/01/23 21:36 BMI result Body Mass Index 26.0 Extrem: Other: Right foot normal to inspection. No swelling or bruising. No tenderness over the 5th metatarsal. NVI. xrays of the right foot obtained on 03/01/23 show healing base of the 5th metatarsal fx Results Labs 03/01/23 05:20 03/02/23 05:56 Labs: Abnormal lab results 03/01/23 03/02/23 Range/Units 05:20 05:56 Potassium 3.1 L 3.2 L (3.3-5.1) mmol/L Chloride 113 H 113 H (96-108) mmol/L Anion Gap 9 L 10 L (12-20) Calcium 7.6 L 7.4 L (8.4-10.2) mg/dL Total Bilirubin 1.6 H (0.0-1.0) mg/dL Direct Bilirubin 1.2 H (0.0-0.5) mg/dL AST 37 H (5-31) U/L Alkaline Phosphatase 201 H (39-117) U/L Total Protein 5.4 L (6.5-8.0) g/dL Albumin 2.3 L (3.5-5.0) g/dL H & H 02/28/23 03/01/23 Range/Units 07:38 05:20 Hgb 10.6 L 10.4 L (12.0-16.0) g/dl Hct 32.9 L 32.4 L (37.0-47.0) % All other labs normal. Assessment and Plan (1) Fracture of fifth metatarsal bone of right foot: Qualifiers: Encounter type: initial encounter Fracture type: closed Fracture alignment: nondisplaced Qualified Code(s): S92.354A - Nondisplaced fracture of fifth metatarsal bone, right foot, initial encounter for closed fracture Status: Acute Plan Continue wbat with regular shoe as tolerated avoid impact activities for another 6 weeks rest and NSAID use prn for flare ups f/u with orthopedics if questions or concerns arise. Procedures Date of Service Date of Service: 03/02/23
[2023-03-02] MEDS: Cyanocobalamin (Vitamin B-12) 1,000 MCG TABLET 1000 MCG PO (08:10)
[2023-03-02] MEDS: buPROPion HCl XL 300 MG TAB.ER.24H PO (08:10)
[2023-03-02] MEDS: Furosemide 40 MG TABLET 80 MG PO (08:10)
[2023-03-02] MEDS: Cholecalciferol (Vitamin D3) 25 MCG TABLET PO (08:10)
[2023-03-02] MEDS: Albuterol/Iprat 2.5/0.5MG 3 ML AMPUL.NEB INHALE ×2 (08:12→12:38)
[2023-03-02 08:52] LABS: Basophils Percent Auto 0.7 % (0-2); Eosinophils Absolute Auto 0.2 X10*3/uL (0.0-0.4); Eosinophils Percent Auto 3.6 % (0-4); Hematocrit 32.2 % (37.0-47.0); Hemoglobin 10.2 g/dl (12.0-16.0); Imm Gran Abs Auto 0.01 X10*3/uL (0.00-0.03); Imm Gran Pct Auto 0.2 % (0.0-0.4); Lymphocytes Absolute Auto 0.9 X10*3/uL (1.2-4.9); Lymphocytes Percent Auto 19.8 % (20-40); Mean Corpuscular HGB Conc 31.7 g/dl (31.0-35.0); Mean Corpuscular Hemoglobin 30.4 pg (27.0-33.0); Mean Corpuscular Volume 96.1 fL (80.0-98.0); Mean Platelet Volume 11.1 fL (9.4-12.3); Monocytes Absolute Auto 0.6 X10*3/uL (0.1-1.2); Monocytes Percent Auto 12.9 % (2-11); Neutrophils Absolute Auto 2.8 x10*3/uL (2.0-8.3); Neutrophils Percent Auto 62.8 % (45-73); Platelet Count 129 X10*3/uL (160-400); Red Blood Count 3.35 X10*6/uL (4.20-5.50); Red Cell Distribution Width 16.2 % (11.0-16.0); White Blood Count 4.5 X10*3/uL (4.8-10.8)
[2023-03-02] MEDS: Pyridoxine HCl (Vitamin B6) 50 MG TABLET 100 MG PO ×2 (10:01→20:01)
[2023-03-02] MEDS: Potassium Chloride Packet 20 MEQ PACKET 40 MEQ PO (10:01)
[2023-03-02] MEDS: UrsodioL 300 MG CAPSULE PO ×2 (10:01→20:01)
[2023-03-02] MEDS: Tacrolimus 0.5 MG CAPSULE PO ×2 (10:02→20:01)
--- NOTE | 2023-03-02 13:45 | PC.NURSE ---
pt speaking w/ admitting provider at this time.
--- NOTE | 2023-03-02 13:49 | P.DS_ITS ---
DS: Providers Provider Date of Service: 03/03/23 Date of admission: 02/28/23 15:40 Date of discharge: 03/03/23 Primary care physician: Taylor Zapata MD Consults: 02/28/23 10:12 Consult to Thoracic Surgery Stat Consulting Provider: Rohan Streeter Reason for consultation: large pleural effusion, Dr. Garcia at [facility] recommending thoracentesis Attending physician on discharge: Elza Medina Discharging clinician: Sydnie Ng DS: Diagnosis Discharge Diagnosis (1) Pleural effusion: Status: Acute (2) Pneumonia: Status: Acute (3) Abdominal ascites: Status: Acute DS: Summary Hospital Course Hospital Course: From H&P on day of admission Pt is a 67-year-old female with a PMH significant for liver transplant in 2016 followed by [facility], primary biliary cholangitis, breast cancer,?who presents to the ED with?increased shortness of breath and productive cough over the past week. Patient initially presented to the ED 6 days prior on 02/22/2023 for similar symptoms. CXR at that time did not show signs of fluid overload or obvious pneumonia. Patient was diagnosed with bronchitis and prescribed albuterol inhaler, levofloxacin, and Augmentin. Pt states she took her medications as prescribed but symptoms worsened. Last night noted pt was having wheezing and having difficulty breathing while sleeping, which prompted coming back to the ED for further evaluation. Patient states symptoms have now been ongoing for over 2 weeks. Has been feeling generally unwell, has had bouts of uncontrollable coughing productive of yellowish sputum. Has also been having bilateral ear fullness and difficulty hearing, especially in right ear. Has had some pleuritic inspiratory chest pain and abdominal pain associated with coughing. Denies fever, chills, nausea, vomiting. No diarrhea. Of note, pt has recurrent ascites and receives biweekly paracenteses, with last being last Sunday. Patient has been placed back on transplant list for a new liver d/t recurrent ascites. In the ED pt was afebrile with slightly elevated pulse up to 95, tachypneic up to 25, and satting at 95% on RA. Labs were significant for pancytopenia with WBC 4.2, H&H 10.6/32.9, and platelets 128, as well as bilirubin 1.7, AST 44, alk-phos 218, and albumin 2.5. Respiratory panel pending. CXR showed approximately 2 cm nodular density and right hilar region that may reflect atelectasis/volume loss in the right middle lobe and small right pleural effusion. CTA of chest found no evidence for pulmonary embolus, but did show large right pleural effusion since previous with right lower lobe compressive atelectatic change. Also found consolidations suggestive of atelectasis or infiltrates in multiple areas of right lung. The ED spoke with Dr. Garcia from [facility] Liver transplant team, who recommended admitting the patient to medicine here, continue getting IV antibiotics, and having a thoracentesis performed. States that if the patient doesn't improve in 24 hours or worsens, [facility] should be contacted again for possible transfer. They can be reached at [phone]. Pt was treated with cefepime, albuterol, and Ativan. Pt will be admitted to the hospital for treatment and further evaluation of right pleural effusion and pneumonia that failed outpatient therapy. CAP Failed outpatient therapy on doxy and levofloxacin. met sepsis criteria with Tachycardia, tachypnea on admission; lactic acid WNL at 0.7. Heart rate has improved, intermittent tachycardia post nebulizer treatment. Admitted and treated with IV ceftriaxone and doxycycline. respiratory status has improved, not hypoxic. blood cultures have remained negative to date. Pleural effusion CTA showed larger right pleural effusion since previous. likely due to underlying pneumonia. pt underwent thoracocentesis 02/28 with 500 ml of serious fluid removed. seen by thoracic surgery - no further work up required at this time. fluid cultures, no growth to date. recommend repeat cxr in a few weeks to ensure resolution. hypokalemia improved with replacement. recommend repeat chemistry early next week. lasix was recently increased, may need to consider potassium replacement vs decrease in dose of lasix if hypokalemia persists. Liver transplant Pt on transplant list, followed by [facility] Liver transplant team. No change. thrombocytopenia chronic, r/t liver dz planned to discharge on 03/02 but noted to have tachycardia. kept overnight on telemetry, HR improved. No adverse events on monitor. Likely due to breathing treatments. No change in baseline anemia, afebrile, no hypoxia. TSH 6.76, free t4 pending normal. recommend outpatient follow up labs Time Attestation Discharge coordination time: Greater than 30 minutes Quality: Safe Use of Opioids Does Pt have an Active Cancer Diagnosis on the Problem List?: No Quality: Stroke Does the patient have a stroke diagnosis?: No Physical Exam Vital Signs: Vital Signs: Last Vital Signs Temp 98.1 F 03/02/23 08:08 Pulse 113 H 03/02/23 12:38 Resp 20 03/02/23 12:38 BP 140/91 H 03/02/23 08:08 Pulse Ox 96 03/02/23 08:08 O2 Del Method Room Air 03/02/23 08:08 BMI result Body Mass Index 26.0 Const: General: cooperative, comfortable, no acute distress, alert and awake Nutritional Appearance: average body habitus Orientation/consciousness: patient oriented x3 Resp: Effort & Inspection: normal respiratory effort, able to speak in complete sentences, no respiratory distress and no use of accessory muscles Cardio: Rate: regular rate GI: Other: softly distended; non-tender Neuro: General: patient oriented x3, moves all extremities and CN's II-XI intact bilaterally DS: Data Data Completed and Pending Completed studies during hospitalization [Text1]: Procedures Drainage of Peritoneal Cavity, Percutaneous Approach (03/30/22) Drainage of Right Pleural Cavity, Percutaneous Approach (03/30/22) Pending studies at discharge: Pending at discharge 02/28/23 12:36 Cytology [PTH] Stat Labs on day of discharge: Laboratory Results - last 24 hr 03/01/23 03/02/23 05:20 05:56 WBC 4.5 L RBC 3.35 L Hgb 10.2 L Hct 32.2 L MCV 96.1 MCH 30.4 MCHC 31.7 RDW 16.2 H Plt Count 129 L MPV 11.1 Immature Gran % (Auto) 0.2 Neut % (Auto) 62.8 Lymph % (Auto) 19.8 L [place] % (Auto) 12.9 H Eos % (Auto) 3.6 Baso % (Auto) 0.7 Lymph # (Auto) 0.9 L [place] # (Auto) 0.6 Eos # (Auto) 0.2 Baso # (Auto) 0.0 Abs Immat Gran (auto) 0.01 Absolute Neuts (auto) 2.8 Absolute Nucleated RBC 0.000 Nucleated RBC % (auto) 0.0 Hold Purple Top SEE NOTE Sodium 143 Potassium 3.2 L Chloride 113 H Carbon Dioxide 23 Anion Gap 10 L BUN 10 Creatinine 0.71 Estim Creat Clear Calc 59.0 Estimated GFR > 60 Random Glucose 95 Calcium 7.4 L Total Bilirubin 1.6 H Direct Bilirubin 1.2 H AST 37 H ALT 22 Alkaline Phosphatase 201 H Lactate Dehydrogenase 176 Total Protein 5.4 L Albumin 2.3 L Preliminary micro results at discharge 02/28/23 12:28 Anaerobic Culture - Preliminary Thoracentesis Fluid No growth to date. 02/28/23 13:49 Blood Culture - Preliminary Blood - Venous No growth after 24 hours. 02/28/23 13:28 Blood Culture - Preliminary Blood - Venous No growth after 24 hours. Discharge Plan Discharge Anticipated Discharge Date/Time: 03/03/23 10:56 Patient Disposition: Home, Self-Care Discharge Diagnosis: pneumonia pleural effusion hypokalemia Referrals: Taylor Zapata MD [Primary Care Provider] - 1 Week Discharge Medications: New doxycycline hyclate 100 mg tablet 100 mg PO BID 12 Days Qty: 24 0RF cefuroxime axetil 500 mg tablet 500 mg PO BID 12 Days Qty: 24 0RF Continued alendronate [Fosamax] 70 mg tablet 70 mg PO QWEEK Qty: 14 4RF cholecalciferol (vitamin D3) [Vitamin D3] 25 mcg (1,000 unit) Capsule 25 mcg PO DAILY cyanocobalamin (vitamin B-12) [Vitamin B-12] 1,000 mcg Tablet 1,000 mcg PO DAILY Qty: 90 3RF ursodiol 500 mg tablet 1 tab PO BID pyridoxine (vitamin B6) 100 mg tablet 100 mg PO BID alprazolam 1 mg tablet 1 mg PO DAILY PRN (Reason: Anxiety) Rx Instructions: PRIOR TO PARACENTESIS albuterol sulfate 90 mcg/actuation HFA aerosol inhaler 2 puff inhalation Q4-6H PRN (Reason: shortness of breath or wheezing) Qty: 8.5 0RF benzonatate 200 mg capsule 200 mg PO BID PRN (Reason: cough) 5 Days Qty: 15 0RF Entyvio 300 mg recon soln 300 mg IV Q8W Rx Instructions: administer over 30 mins bupropion HCl 300 mg tablet extended release 24 hr 300 mg PO DAILY pantoprazole 40 mg tablet,delayed release (DR/EC) 40 mg PO DAILY furosemide 40 mg tablet 80 mg PO DAILY colesevelam 625 mg tablet 1,250 mg PO BID gabapentin 300 mg capsule 600 mg PO BEDTIME Qty: 180 2RF tacrolimus 0.5 mg capsule 0.5 mg PO Q12H ondansetron 4 mg tablet,disintegrating 4 mg PO Q8H PRN (Reason: nausea and vomiting) Qty: 90 1RF Discontinued amoxicillin-pot clavulanate 875-125 mg tablet 1 tab PO Q12H 7 Days Qty: 14 0RF levofloxacin 750 mg tablet 750 mg PO DAILY 5 Days Qty: 5 0RF No Action (DME) Ultra-Light Rollator Misc See Rx Instructions .Route Qty: 1 0RF Rx Instructions: As directed Discharge Orders: Discharge Order (Routine); Ordered 03/03/23 Ordered By: Sydnie Ng Activity on Discharge: As tolerated Stand Alone Forms: Patient Portal Discharge page Other Ambulatory Orders: Basic Metabolic Panel (Routine) Timeframe: 20230306 Facility: [facility] - Location: Laboratory Ordered By: Sydnie Ng Magnesium (Routine) Timeframe: 20230306 Facility: [facility] - Location: Laboratory Ordered By: Sydnie Ng Care Plan Goals: see below Health Concerns: pneumonia pleural effusion low potassium low magnesium Plan of Treatment: complete course of antibiotics repeat chemistry to assess potassium/magnesium levels 03/06 call to schedule follow up appointment with PCP - will need follow up on potassium levels and repeat chest xray in the next few weeks can continue flonase, nasal saline for ear fullness. discuss with PCP if no i mprovement resume magnesium supplementation continue current dose of lasix, if repeat potassium level low, consider decrease dose back to 40mg Assessment: see discharge summary
--- NOTE | 2023-03-02 14:00 | P.CDIM_ITS ---
PROVIDER RESPONSE TEXT: To clarify, the appropriate diagnosis supported by the clinical indicators: Sepsis: likely due to pneumonia QUERY TEXT: PHYSICIAN'S DOCUMENTATION REQUEST Date of Query: 03/02/2023 08:37 AM EST Patient Name: Praveena Douglass Admit Date: 02/28/2023 Dear Sydnie Ng, A review of the medical record indicates additional documentation may be needed. Please review below and update the documentation accordingly. Clinical indicators: ED: Narrative - Patient's clinical presentation is not consistent with sepsis. [facility] recommends admit and IV antibiotics. H&P: Pneumonia - patient meets sepsis criteria: Tachycardia, tachypnea; lactic acid WNL at 0.7 HR 104 RR 23 Temp 98.3 Sepsis Systemic manifestations of infection, with 2 or more SIRS criteria which include: Fever > 100.4?F or hypothermia < 96.8?F Leukocytosis - WBC > 12,000 or leukopenia, WBC < 4,000, or > 10% bands Tachycardia- > 90 beats/minute Tachypnea- RR > 20 breaths/minute or PaCO2 < 32mmHg Sepsis suspected, probable, possible, treating, not treating etc. Other Other (explain) Clinically unable to determine (explain) Thank you, Lashawn Julio, CCS, CDIS Use of terms such as suspected, likely, concern for, or probable (associated with a specific diagnosi s that is being evaluated, monitored, or treated as if it exists) are acceptable and can be coded in the inpatient se tting, when documented at the time of discharge. Please use your independent medical judgment in providing your response. THIS QUERY IS PART OF THE PERMANENT MEDICAL RECORD
--- NOTE | 2023-03-02 14:05 | MHC.EDTECH ---
patient was provided with hygiene care and stated she can do it her self help was offered.
--- NOTE | 2023-03-02 14:19 | PC.NURSE ---
provider aware of pt's updated vitals at this time. pt resting comfortably bedside in no apparent distress. family bedside. respirations even and unlabored. call jarquin placed within reach.
--- NOTE | 2023-03-02 14:23 | MHC.CM.PN ---
Addendum entered by Sofia Wise 03/02/23 15:01: PT REPORTS SHE LIVES WITH HER AND IS FULLY INDEPENDENT AT BL SHE HAS NO DME AND NO HOME SERVICES COPY OF HCP REQUESTED PCP: GABBIE BRYSON AND ARABELLA GREGG DELIVERED DCP: HOME NO SERVICES VIA SELF-ARRANGED TRANSPORT Original Note: pt dcd home no servies
--- NOTE | 2023-03-02 17:01 | HO.PM.IMPN ---
Subjective Subjective Date of Service: 03/02/23 Interval History: seen and examined this morning follow up for pneumonia, pleural effusion feeling better, planned to d/c but then ntoed to be tachycardic pt denies palpitations Review of Systems Review of Systems: Yes all other systems are reviewed and are negative Constitutional Constitutional: Denies chills and Denies fever(s) Cardiovascular Cardiovascular: Denies chest pain, Denies palpitations and Denies dyspnea Respiratory Respiratory: Reports cough and Denies dyspnea Gastrointestinal Gastrointestinal: Denies abdominal pain Endocrine Endocrine: Denies palpitations Physical Exam Vital Signs: Vital Signs: Last Vital Signs Temp 99.0 F 03/02/23 14:02 Pulse 117 H 03/02/23 14:02 Resp 22 H 03/02/23 14:02 BP 117/71 03/02/23 14:02 Pulse Ox 96 03/02/23 14:02 O2 Del Method Room Air 03/02/23 14:02 BMI result Body Mass Index 26.0 Const: General: cooperative, comfortable, no acute distress, alert and awake Nutritional Appearance: average body habitus Orientation/consciousness: patient oriented x3 Resp: Effort & Inspection: normal respiratory effort, able to speak in complete sentences, no respiratory distress and no use of accessory muscles Cardio: Rate: regular rate GI: Other: softly distended; non-tender Neuro: General: patient oriented x3, moves all extremities and CN's II-XI intact bilaterally Objective Data Active Medications Acetaminophen (Acetaminophen 325 Mg Tablet) 650 mg PO Q6H PRN PRN Reason: Pain, Mild (Pain Scale 1-3) Albuterol Sulfate (Albuterol Sulfate 90 Mcg 8 Gm Inhaler) 2 puff INHALE Q4H PRN PRN Reason: shortness of breath or wheezing Last Admin: 03/01/23 04:55 Dose: 2 puff Documented By: LIZBETH Albuterol/Ipratropium (Albuterol/Iprat 2.5/0.5mg 3 Ml Ampul.Neb) 3 ml INHALE RQ4H WHILE AWAKE SHERMAN Last Admin: 03/02/23 12:38 Dose: 3 ml Documented By: TATY Alprazolam (Alprazolam 0.5 Mg Tablet) 1 mg PO DAILY PRN PRN Reason: Anxiety Last Admin: 03/01/23 04:59 Dose: 1 mg Documented By: LUIS FELIPE Bupropion HCl (Bupropion Hcl Xl 300 Mg Tab.Er.24h) 300 mg PO DAILY [facility] Last Admin: 03/02/23 08:10 Dose: 300 mg Documented By: GARETH Cyanocobalamin (Cyanocobalamin (Vitamin B-12) 1,000 Mcg Tablet) 1,000 mcg PO DAILY [facility] Last Admin: 03/02/23 08:10 Dose: 1,000 mcg Documented By: GARETH Docusate Sodium (Docusate Sodium 100 Mg Capsule) 100 mg PO DAILY PRN PRN Reason: Constipation Enoxaparin Sodium (Enoxaparin Sodium 40 Mg/0.4 Ml Syringe) 40 mg SUBCUT Q24H [facility] Last Admin: 03/01/23 16:41 Dose: 40 mg Documented By: CHINO Furosemide (Furosemide 40 Mg Tablet) 80 mg PO DAILY [facility]; Protocol Last Admin: 03/02/23 08:10 Dose: 80 mg Documented By: GARETH Gabapentin (Gabapentin 300 Mg Capsule) 600 mg PO BEDTIME [facility] Last Admin: 03/01/23 21:21 Dose: 600 mg Documented By: CHELSEA Guaifenesin/Dextromethorphan (Guaifenesin Dm 100/10/5 Ml 5 Ml Syrup) 5 ml PO Q6H PRN PRN Reason: cough Last Admin: 03/01/23 04:59 Dose: 5 ml Documented By: LUIS FELIPE Ceftriaxone Sodium 1 gm/ (Sodium Chloride) 50 mls @ 100 mls/hr IV Q24H [facility] Last Infusion: 03/01/23 21:38 Dose: Infused Documented By: CHELSEA Doxycycline Hyclate 100 mg/ (Sodium Chloride) 250 mls @ 166.67 mls/hr IV Q12H [facility] Last Infusion: 03/02/23 06:21 Dose: Infused Documented By: CHELSEA Melatonin (Melatonin 3 Mg Tablet) 6 mg PO BEDTIME PRN PRN Reason: Insomnia Last Admin: 02/28/23 21:44 Dose: 6 mg Documented By: LUIS FELIPE Pt Own Medication ( Colesevelam 625 Mg Tablet) 1,250 mg PO BID [facility] Last Admin: 03/02/23 10:01 Dose: 1,250 mg Documented By: GARETH Omeprazole (Omeprazole 20 Mg Capsule.Dr) 20 mg PO DAILY@0630 [facility] Last Admin: 03/02/23 05:46 Dose: 20 mg Documented By: CHELSEA Ondansetron HCl (Ondansetron Hcl 4 Mg/2 Ml Vial) 4 mg IVPUSH Q8H PRN PRN Reason: Nausea and Vomiting Pyridoxine HCl (Pyridoxine Hcl (Vitamin B6) 50 Mg Tablet) 100 mg PO BID [facility] Last Admin: 03/02/23 10:01 Dose: 100 mg Documented By: GARETH Sodium Chloride (0.9 % Sodium Chloride Flush 3 Ml Syringe) 3 ml IVFLUSH QSHIFT [facility] Last Admin: 03/02/23 08:10 Dose: 3 ml Documented By: GARETH Tacrolimus (Tacrolimus 0.5 Mg Capsule) 0.5 mg PO BID [facility] Last Admin: 03/02/23 10:02 Dose: 0.5 mg Documented By: GARETH Ursodiol (Ursodiol 300 Mg Capsule) 300 mg PO BID [facility] Last Admin: 03/02/23 10:01 Dose: 300 mg Documented By: GARETH Vitamin D (Cholecalciferol (Vitamin D3) 25 Mcg Tablet) 25 mcg PO DAILY [facility] Last Admin: 03/02/23 08:10 Dose: 25 mcg Documented By: GARETH Labs 03/02/23 05:56 03/02/23 05:56 Labs: Laboratory Results - last 24 hr 03/01/23 03/02/23 05:20 05:56 MCV 96.1 MCH 30.4 MCHC 31.7 RDW 16.2 H Plt Count 129 L MPV 11.1 Immature Gran % (Auto) 0.2 Neut % (Auto) 62.8 Lymph % (Auto) 19.8 L [place] % (Auto) 12.9 H Eos % (Auto) 3.6 Baso % (Auto) 0.7 Lymph # (Auto) 0.9 L [place] # (Auto) 0.6 Eos # (Auto) 0.2 Baso # (Auto) 0.0 Abs Immat Gran (auto) 0.01 Absolute Neuts (auto) 2.8 Absolute Nucleated RBC 0.000 Nucleated RBC % (auto) 0.0 Hold Purple Top SEE NOTE Anion Gap 10 L Estim Creat Clear Calc 59.0 Estimated GFR > 60 Random Glucose 95 Calcium 7.4 L Total Bilirubin 1.6 H Direct Bilirubin 1.2 H AST 37 H ALT 22 Alkaline Phosphatase 201 H Lactate Dehydrogenase 176 Total Protein 5.4 L Albumin 2.3 L Microbiology Microbiology Results: Microbiology 02/28/23 13:49 Blood Culture - Preliminary Blood - Venous No growth after 48 hours. 02/28/23 13:28 Blood Culture - Preliminary Blood - Venous No growth after 48 hours. 02/28/23 12:28 Gram Stain - Final Thoracentesis Fluid Anaerobic Culture - Preliminary No growth to date. Body Fluid Culture - Final No growth after 2 days Assessment and Plan (1) Pleural effusion: Status: Acute (2) Pneumonia: Status: Acute Plan Pt is a 67-year-old female with a PMH significant for liver transplant in 2016 followed by Karen, primary biliary cholangitis, breast cancer,?who presents to the ED with?increased shortness of breath and productive cough over the past week. Pt will be admitted to the hospital for treatment and further evaluation of right pleural effusion and pneumonia that failed outpatient therapy. CAP Patient with increasing shortness of breath, productive cough, general malaise/feeling unwell, CTA with evidence of multiple infiltrates in right lung Failed outpatient therapy on doxy and levofloxacin met sepsis criteria with Tachycardia, tachypnea; lactic acid WNL at 0.7 Patient started on broad spectrum antibiotics in ED continue IV ceftriaxone and doxycycline, started 02/28/2023 Patient not hypoxic, not requiring supplemental O2 Will give duonebs, guaifenesin for cough, Sudafed for ear fullness blood cultures negative to date Pleural effusion CTA showed larger right pleural effusion since previous. likely due to underlying liver dz pt underwent thoracocentesis 02/28 with 500 ml of serious fluid removed seen by thoracic surgery - no further work up required at this time Follow fluid cultures, no growth to date tachycardia likely r/t breathing treatments - will d/c no anemia, afebrile check ekg check thyroid function in am hypokalemia replace and follow Liver transplant Pt on transplant list, followed by Karen Liver transplant team Receives therapeutic paracenteses bi-weekly, last 02/20 If pt does not improve in 24 hours or worsens, Karen should be contacted at [phone] for possible transfer Continue tacrolimus, furosemide thrombocytopenia chronic, r/t liver dz Mood disorder Continue alprazolam, bupropion HLD Continue colesevelam Full Code Attending:?Dr. Gallagher DVT Prophylaxis: Lovenox Pt will require a hospitalization of at least two nights for treatment of?right pleural effusion with thoracentesis and pneumonia that failed outpatient therapy with IV antibiotics. Quality Stroke Does the patient have a stroke diagnosis?: No VTE Prior VTE?: No VTE Risk Level:: Medical - moderate - high VTE Device Contraindication: Treatment Not Indicated VTE Drug Contraindication: N/A - Med Ordered
--- NOTE | 2023-03-02 18:05 | PC.NURSE ---
late entry 1500- plan to d/c pt.. went over discharge paperwork, IV line removed. Berenice KAPOOR requested recheck of pts HR as it had been elevated post albutorl updraft. recheck on HR showed 117 - plan to kkeep pt 1-2 more hrs and monirot HR for it to come down following updraft for safe admit. 1355 HR 112 1451 HR 117. Berenice KAPOOR requests to keep pt until tomorrow to monitor HR. chnage of pt status to [facility]/tele admit. Tele pts not compatible in overflow unit. request for C bed made to [facility]. plan for pt to get bed. informed Berenice of IV remal at 1500 and either order to re-insert IV or change doxy abx to PO. meds were chagned to PO. Albuterol d/c at this time to monitor HR. plan to admit pt to [facility]MC, no IV placement, PO Doxy and on tele
[2023-03-02] MEDS: Enoxaparin Sodium 40 MG/0.4 ML SYRINGE SUBCUT (18:18)
[2023-03-02] MEDS: Doxycycline Monohydrate 100 MG CAPSULE PO (18:18)
[2023-03-02] MEDS: Gabapentin 300 MG CAPSULE 600 MG PO (20:01)
[2023-03-02] MEDS: cefuroxime axetiL 500 MG TABLET PO (20:01)
[2023-03-03 03:30] VITALS: BP 102/64; PULSE 97; RESP 20; TEMP 36.5; O2SAT 98
[2023-03-03] MEDS: Omeprazole 20 MG CAPSULE.DR PO (05:26)
[2023-03-03] MEDS: Doxycycline Monohydrate 100 MG CAPSULE PO (05:26)
[2023-03-03 07:26] VITALS: BP 129/73; PULSE 99; RESP 20; TEMP 36.4; O2SAT 97
[2023-03-03 07:47] LABS: Anion Gap 10 (12-20); Blood Urea Nitrogen 13 mg/dL (9-16); Calcium 7.8 mg/dL (8.4-10.2); Carbon Dioxide 24 mmol/L (22-29); Chloride 112 mmol/L (96-108); Creatinine Clr Calc Pharmacy 55.9; Estimated Glomerular Filt Rate > 60; Glucose Random 97 mg/dL (60-115); Magnesium 1.4 mg/dL (1.6-2.6); Potassium 3.2 mmol/L (3.3-5.1); Sodium 143 mmol/L (135-145)
[2023-03-03 07:55] LABS: TSH reflex Free T4 6.76 uIU/mL (0.32-4.0)
[2023-03-03] MEDS: Magnesium Sulfate/H2O 2 GM/50 ML PIGGYBACK IV (10:22)
[2023-03-03] MEDS: buPROPion HCl XL 300 MG TAB.ER.24H PO (10:23)
[2023-03-03] MEDS: Potassium Chloride Packet 20 MEQ PACKET 40 MEQ PO (10:23)
[2023-03-03] MEDS: Tacrolimus 0.5 MG CAPSULE PO (10:23)
[2023-03-03] MEDS: Cholecalciferol (Vitamin D3) 25 MCG TABLET PO (10:24)
[2023-03-03] MEDS: Pyridoxine HCl (Vitamin B6) 50 MG TABLET 100 MG PO (10:24)
[2023-03-03] MEDS: cefuroxime axetiL 500 MG TABLET PO (10:24)
[2023-03-03] MEDS: Furosemide 40 MG TABLET PO (10:24)
[2023-03-03] MEDS: Cyanocobalamin (Vitamin B-12) 1,000 MCG TABLET 1000 MCG PO (10:24)
[2023-03-03] MEDS: 0.9 % Sodium Chloride Flush 3 ML SYRINGE IVFLUSH (10:25)
[2023-03-03] MEDS: UrsodioL 300 MG CAPSULE PO (10:29)
[2023-03-03 11:23] LABS: Free T4 (Free Thyroxine) 0.88 ng/dL (0.71-1.85)
[2023-03-03 11:32] VITALS: BP 126/73; PULSE 96; RESP 20; TEMP 36.7; O2SAT 99
--- NOTE | 2023-03-03 12:51 | MHC.CM.PN ---
Patient has been medically cleared for dc to home today, self care.
== END 2023-03-03 12:55 | disposition home or self-care (01) | DRG 871 ==
LOC: HO.ED 11:23 → HO.EDOVER 15:51 → HO.IMC 03-02 18:04
PROVIDERS: Physician Assistant Medical; Physician Assistant Surgical; Admitting Provider Student in an Organized Health Care Education/Training Program; Emergency Provider Emergency Medicine; PCP Internal Medicine; Visit Provider Physician Assistant Medical
DX: A41.9 Sepsis, unspecified organism (principal); J18.9 Pneumonia, unspecified organism; J91.8 Pleural effusion in other conditions classified elsewhere; T86.49 Other complications of liver transplant; Z76.82 Awaiting organ transplant status; S92.354D Nondisplaced fracture of fifth metatarsal bone, right foot, subsequent encounter for fracture with routine healing; X58.XXXD Exposure to other specified factors, subsequent encounter; E87.6 Hypokalemia; E78.5 Hyperlipidemia, unspecified; F39 Unspecified mood [affective] disorder; Z79.621 Long term (current) use of calcineurin inhibitor; Z79.899 Other long term (current) drug therapy
CPT/HCPCS: 32555; 36415; 71045; 71275; 73630; 80048; 80053; 80076; 83605; 83615; 83690; 83735; 83986; 84157; 84439; 84443; 85025; 85027; 87040; 87070; 87073; 87205; 87633; 88112; 88305; 89051; 93005; 94640; 99285; J0692; J0696; J1650; J2060; J3475; Q9967

== ENCOUNTER → 2023-02-28 12:22 | Outpatient (BNV) | payer MEDICARE, OTHER, SELFPAY | PROVIDERS: Emergency Provider Emergency Medicine; PCP Internal Medicine; Visit Provider Radiology Diagnostic Radiology | DX: J90 Pleural effusion, not elsewhere classified (principal) | CPT/HCPCS: 32555 ==

== ENCOUNTER 2023-02-28 15:40 | Outpatient (BNV) | payer MEDICARE, OTHER, SELFPAY | END 2023-03-02 17:52 | PROVIDERS: Admitting Provider Student in an Organized Health Care Education/Training Program; Emergency Provider Emergency Medicine; PCP Internal Medicine; Visit Provider Internal Medicine Cardiovascular Disease | DX: R00.0 Tachycardia, unspecified (principal); R94.31 Abnormal electrocardiogram [ECG] [EKG] | CPT/HCPCS: 93010 ==

== ENCOUNTER → 2023-02-28 15:40 | Outpatient (BNV) | payer MEDICARE, OTHER, SELFPAY | PROVIDERS: Admitting Provider Student in an Organized Health Care Education/Training Program; Emergency Provider Emergency Medicine; PCP Internal Medicine; Visit Provider Surgery | DX: J90 Pleural effusion, not elsewhere classified (principal) | CPT/HCPCS: 99222 ==

== ENCOUNTER → 2023-02-28 15:40 | Outpatient (BNV) | payer MEDICARE, OTHER, SELFPAY | PROVIDERS: Admitting Provider Student in an Organized Health Care Education/Training Program; Emergency Provider Emergency Medicine; PCP Internal Medicine; Visit Provider Student in an Organized Health Care Education/Training Program | DX: J90 Pleural effusion, not elsewhere classified (principal); J18.9 Pneumonia, unspecified organism | CPT/HCPCS: 99223; 99232; 99239 ==

== ENCOUNTER → 2023-02-28 15:40 | Outpatient (BNV) | payer MEDICARE, OTHER, SELFPAY | PROVIDERS: Admitting Provider Student in an Organized Health Care Education/Training Program; Emergency Provider Emergency Medicine; PCP Internal Medicine; Visit Provider Physician Assistant | DX: S92.354A Nondisplaced fracture of fifth metatarsal bone, right foot, initial encounter for closed fracture (principal) | CPT/HCPCS: 99231 ==

== ENCOUNTER 2023-03-02 12:34 | Outpatient (REF) | payer MEDICARE, OTHER, SELFPAY | END 2023-03-02 12:35 | disposition home or self-care (01) | LOC: HO.HOSX 12:34 | PROVIDERS: Visit Provider Physician Assistant | DX: Z13.89 Encounter for screening for other disorder (principal) ==

== ENCOUNTER 2023-03-06 06:49 | Outpatient (REF) | payer MEDICARE, OTHER, SELFPAY ==
[2023-03-06 07:44] LABS: Anion Gap 11 (12-20); Blood Urea Nitrogen 14 mg/dL (9-16); Calcium 8.9 mg/dL (8.4-10.2); Carbon Dioxide 25 mmol/L (22-29); Chloride 108 mmol/L (96-108); Estimated Glomerular Filt Rate > 60; Glucose Random 93 mg/dL (60-115); Magnesium 1.7 mg/dL (1.6-2.6); Potassium 3.8 mmol/L (3.3-5.1); Sodium 140 mmol/L (135-145)
== END 2023-03-06 06:50 | disposition home or self-care (01) ==
LOC: HO.LAB 06:49
PROVIDERS: Visit Provider Physician Assistant Medical
DX: Z13.89 Encounter for screening for other disorder (principal)
CPT/HCPCS: 36415; 80048; 83735

== ENCOUNTER 2023-03-06 07:10 | Day surgery (SDC) | payer MEDICARE, OTHER, SELFPAY ==
--- NOTE | ~2023-03-06 | US_ITS ---
ULTRASOUND PARACENTESIS HISTORY: Ascites. Risks and benefits and possible complications were discussed with the patient and consent form was signed. A safe pocket of ascitic fluid was identified using ultrasound guidance, was in the left lower quadrant, and the overlying skin was marked, and draped in usual sterile fashion. 1% lidocaine was used as a local anesthetic. Using ultrasound guidance, a 5 fr catheter was placed into the ascitic pocket. 3.9 liters of yellow cloudy fluid was removed passively. The catheter was then removed. A few loan servicing representative images from before and after the examination were obtained. The procedure was performed by Gabriel Tai PA-C and supervised by Dr. Agarwal. US/US paracentesis abd w/image IMPRESSION: Ultrasound-guided paracentesis as described above. Drainage of 3.9 L of yellow cloudy ascitic fluid. No immediate complications
[2023-03-06 08:02] VITALS: BMI 25.4
[2023-03-06 09:45] VITALS: BP 116/69; PULSE 87; RESP 19; TEMP 37.1; O2SAT 100
[2023-03-06] MEDS: Lidocaine HCl 1 % MPF 5 ML VIAL SUBCUT (09:49)
[2023-03-06 10:00] VITALS: BP 119/69; PULSE 90; RESP 17; O2SAT 98
[2023-03-06 10:17] VITALS: BP 117/69; PULSE 93; RESP 18; TEMP 36.6; O2SAT 98
== END 2023-03-06 10:19 | disposition home or self-care (01) ==
PROVIDERS: Student in an Organized Health Care Education/Training Program; PCP Internal Medicine; Visit Provider Internal Medicine Gastroenterology
DX: R18.8 Other ascites (principal); K76.9 Liver disease, unspecified; Z94.4 Liver transplant status; Z79.899 Other long term (current) drug therapy
CPT/HCPCS: 36415; 49083; 80048; 83735

== ENCOUNTER → 2023-03-06 09:03 | Outpatient (BNV) | payer MEDICARE, OTHER, SELFPAY | PROVIDERS: PCP Internal Medicine; Visit Provider Radiology Diagnostic Radiology | DX: R18.8 Other ascites (principal); K76.9 Liver disease, unspecified | CPT/HCPCS: 49083 ==

== ENCOUNTER 2023-03-07 13:01 | Emergency (ER) | payer MEDICARE, OTHER, SELFPAY ==
[2023-03-07 14:01] VITALS: BP 126/75; PULSE 88; RESP 16; TEMP 36.8; O2SAT 98; BMI 25.3
[2023-03-07 16:33] LABS: MANUAL DIFF FLAG NO
[2023-03-07 16:35] LABS: Basophils Percent Auto 0.5 % (0-2); Eosinophils Absolute Auto 0.2 X10*3/uL (0.0-0.4); Eosinophils Percent Auto 3.6 % (0-4); Hematocrit 37.1 % (37.0-47.0); Hemoglobin 11.8 g/dl (12.0-16.0); Imm Gran Abs Auto 0.02 X10*3/uL (0.00-0.03); Imm Gran Pct Auto 0.4 % (0.0-0.4); Lymphocytes Absolute Auto 0.8 X10*3/uL (1.2-4.9); Lymphocytes Percent Auto 13.9 % (20-40); Mean Corpuscular HGB Conc 31.8 g/dl (31.0-35.0); Mean Corpuscular Hemoglobin 30.2 pg (27.0-33.0); Mean Corpuscular Volume 94.9 fL (80.0-98.0); Mean Platelet Volume 10.3 fL (9.4-12.3); Monocytes Absolute Auto 0.5 X10*3/uL (0.1-1.2); Monocytes Percent Auto 8.9 % (2-11); Neutrophils Absolute Auto 4.1 x10*3/uL (2.0-8.3); Neutrophils Percent Auto 72.7 % (45-73); Platelet Count 146 X10*3/uL (160-400); Red Blood Count 3.91 X10*6/uL (4.20-5.50); Red Cell Distribution Width 15.8 % (11.0-16.0); White Blood Count 5.6 X10*3/uL (4.8-10.8)
[2023-03-07 16:42] LABS: INTERNATIONAL NORM RATIO 1.2 (0.9-1.1); Prothrombin Time 14.9 SEC (11.1-13.3)
[2023-03-07 16:44] LABS: Partial Thromboplastin Time 33.5 SEC (26.0-36.4)
[2023-03-07 16:48] LABS: Alanine Aminotransferase 29 U/L (0-31); Albumin Level 2.6 g/dL (3.5-5.0); Alkaline Phosphatase 219 U/L (39-117); Anion Gap 11 (12-20); Aspartate Amino Transferase 47 U/L (5-31); Bilirubin Direct 1.3 mg/dL (0.0-0.5); Bilirubin Total 1.8 mg/dL (0.0-1.0); Blood Urea Nitrogen 13 mg/dL (9-16); Calcium 8.1 mg/dL (8.4-10.2); Carbon Dioxide 25 mmol/L (22-29); Chloride 107 mmol/L (96-108); Creatinine Clr Calc Pharmacy 57.5; Estimated Glomerular Filt Rate > 60; Glucose Random 95 mg/dL (60-115); Potassium 3.5 mmol/L (3.3-5.1); Sodium 139 mmol/L (135-145); Total Protein 6.2 g/dL (6.5-8.0)
--- NOTE | 2023-03-07 17:04 | ED_ITS ---
HPI - General Adult General Chief complaint: Abdominal Pain Stated complaint: Wound Site Leaking from Paracentesis Related Data Home Medications Medication Instructions Recorded Confirmed ursodiol 500 mg tablet 1 tab PO BID 11/02/21 03/08/23 cholecalciferol (vitamin D3) 25 25 mcg PO DAILY 04/25/22 03/08/23 mcg (1,000 unit) capsule (Vitamin D3) tacrolimus 0.5 mg capsule, 0.5 mg PO Q12H 08/22/22 03/08/23 immediate-release alprazolam 1 mg tablet 1 mg PO DAILY PRN Anxiety 09/04/22 03/08/23 pyridoxine (vitamin B6) 100 mg 100 mg PO BID 09/04/22 03/08/23 tablet vedolizumab 300 mg intravenous 300 mg IV Q8W 02/01/23 03/08/23 solution (Entyvio) bupropion HCl 300 mg 24 hr tablet, 300 mg PO DAILY 02/28/23 03/08/23 extended release pantoprazole 40 mg tablet,delayed 40 mg PO DAILY 02/28/23 03/08/23 release colesevelam 625 mg tablet 1,250 mg PO BID 03/01/23 03/08/23 colesevelam 625 mg tablet 1,250 mg PO BID 03/08/23 03/08/23 furosemide 40 mg tablet 40 mg PO DAILY 03/08/23 03/08/23 guaifenesin 100 mg/5 mL oral liquid 200 mg PO Q4H PRN 03/08/23 03/08/23 zinc acetate 50 mg (zinc) capsule 50 mg PO DAILY 03/08/23 03/08/23 (Galzin) Previous Rx's Medication Instructions Recorded cyanocobalamin (vitamin B-12) 1,000 mcg PO DAILY #90 tabs 04/25/22 1,000 mcg tablet (Vitamin B-12) gabapentin 300 mg capsule 600 mg (2 x 300 mg) PO BEDTIME 09/21/22 #180 caps ondansetron 4 mg disintegrating 4 mg PO Q8H PRN nausea and 10/09/22 tablet vomiting #90 tabs walker (Ultra-Light Rollator misc) #1 ea 12/16/22 alendronate 70 mg tablet (Fosamax) 70 mg PO QWEEK #14 tabs 02/08/23 albuterol sulfate 90 mcg/actuation 2 puff inhalation Q4-6H PRN 02/22/23 aerosol inhaler shortness of breath or wheezing #8.5 grams benzonatate 200 mg capsule 200 mg PO BID PRN cough 5 days #15 02/22/23 caps cefuroxime axetil 500 mg tablet 500 mg PO BID 12 days #24 tabs 03/02/23 doxycycline hyclate 100 mg tablet 100 mg PO BID 12 days #24 tabs 03/02/23 Allergies Allergy/AdvReac Type Severity Reaction Status Date / Time hydromorphone [From Dilaudid] Allergy Severe Hallucinati Verified 03/08/23 11:57 ons losartan Allergy Intermediate Facial Verified 03/08/23 11:57 Swelling Sulfa (Sulfonamide AdvReac Severe Rash Verified 03/08/23 11:57 Antibiotics) [facility] Past Medical History Medical History Shakes Frequent falls Ascites Anemia CHF (congestive heart failure) Pancytopenia Anxiety HTN (hypertension) Tremor Chronic diarrhea Primary biliary cholangitis Breast cancer Surgical History H/O wrist surgery Transplant recipient Hx of colonoscopy Hx of esophagogastroduodenoscopy H/O: hysterectomy S/P hip replacement Liver transplant recipient Family History Family History Mother CAD (coronary artery disease) Sister Ovarian cancer Mental health disorder Social History Social History Household Members: Spouse Household Members Other:: , children Housing: House Do you presently have visiting nurse or other home services: No Alcohol intake: never Patient Tobacco Use Status: Never used Tobacco Tobacco use type: Cigarette e-Cigarette/Vaping Use: Never Used Second Hand Smoke Exposure: No Advance Directives Date on File: 12/15/22 service: No Current occupational status: retired Cognitive needs: No Hearing needs: No Vision needs: Yes Physical Exam ED Vital Signs: Vital Signs - 24 hr 03/07/23 14:01 Temperature 98.2 F Pulse Rate 88 Respiratory Rate 16 Blood Pressure 126/75 Pulse Oximetry 98 Oxygen Delivery Method Room Air BMI result Body Mass Index 25.3 Course Course Course Narrative: This is an RME: Additional HPI, ROS, PE not included below will be deferred to primary provider. 67 y/o F, history of liver transplant currently on transplant list, anemia, CHF, pancytopenia, anxiety, hypertension, chronic diarrhea, ascites with bi-weekly paracentesis (last paracentesis 03/07) presenting to ED due to left lower paracentesis leakage. She had paracentesis done yesterday has been draining profusely and onto her clothes. Reevaluation(s) Reevaluation #1: pt eloped prior to completing treatment Medical Decision Making Lab Data 03/07/23 16:24 03/07/23 16:24 Labs: Lab Results 03/07/23 Range/Units 16:24 WBC 5.6 (4.8-10.8) X10*3/uL RBC 3.91 L (4.20-5.50) X10*6/uL Hgb 11.8 L (12.0-16.0) g/dl Hct 37.1 (37.0-47.0) % MCV 94.9 (80.0-98.0) fL MCH 30.2 (27.0-33.0) pg MCHC 31.8 (31.0-35.0) g/dl RDW 15.8 (11.0-16.0) % Plt Count 146 L (160-400) X10*3/uL MPV 10.3 (9.4-12.3) fL Immature Gran % (Auto) 0.4 (0.0-0.4) % Neut % (Auto) 72.7 (45-73) % Lymph % (Auto) 13.9 L (20-40) % [place] % (Auto) 8.9 (2-11) % Eos % (Auto) 3.6 (0-4) % Baso % (Auto) 0.5 (0-2) % Lymph # (Auto) 0.8 L (1.2-4.9) X10*3/uL [place] # (Auto) 0.5 (0.1-1.2) X10*3/uL Eos # (Auto) 0.2 (0.0-0.4) X10*3/uL Baso # (Auto) 0.0 (0.0-0.2) X10*3/uL Abs Immat Gran (auto) 0.02 (0.00-0.03) X10*3/uL Absolute Neuts (auto) 4.1 (2.0-8.3) x10*3/uL Absolute Nucleated RBC 0.000 (0.0-0.012) X10*3/uL Nucleated RBC % (auto) 0.0 (0.0-0.2) /100WBC PT 14.9 H (11.1-13.3) SEC INR 1.2 H (0.9-1.1) APTT 33.5 (26.0-36.4) SEC Sodium 139 (135-145) mmol/L Potassium 3.5 (3.3-5.1) mmol/L Chloride 107 (96-108) mmol/L Carbon Dioxide 25 (22-29) mmol/L Anion Gap 11 L (12-20) BUN 13 (9-16) mg/dL Creatinine 0.72 (0.5-1.4) mg/dL Estim Creat Clear Calc 57.5 Estimated GFR > 60 Random Glucose 95 (60-115) mg/dL Calcium 8.1 L D (8.4-10.2) mg/dL Total Bilirubin 1.8 H (0.0-1.0) mg/dL Direct Bilirubin 1.3 H (0.0-0.5) mg/dL AST 47 H (5-31) U/L ALT 29 (0-31) U/L Alkaline Phosphatase 219 H (39-117) U/L Total Protein 6.2 L (6.5-8.0) g/dL Albumin 2.6 L (3.5-5.0) g/dL Discharge Plan Discharge Clinical Impression: Status post abdominal paracentesis Patient Disposition: Left W/O Completing Treatment Prescriptions: No Action alendronate [Fosamax] 70 mg tablet 70 mg PO QWEEK Qty: 14 4RF cholecalciferol (vitamin D3) [Vitamin D3] 25 mcg (1,000 unit) Capsule 25 mcg PO DAILY cyanocobalamin (vitamin B-12) [Vitamin B-12] 1,000 mcg Tablet 1,000 mcg PO DAILY Qty: 90 3RF ursodiol 500 mg tablet 1 tab PO BID pyridoxine (vitamin B6) 100 mg tablet 100 mg PO BID alprazolam 1 mg tablet 1 mg PO DAILY PRN (Reason: Anxiety) Rx Instructions: PRIOR TO PARACENTESIS (DME) Ultra-Light Rollator Misc See Rx Instructions .Route Qty: 1 0RF Rx Instructions: As directed albuterol sulfate 90 mcg/actuation HFA aerosol inhaler 2 puff inhalation Q4-6H PRN (Reason: shortness of breath or wheezing) Qty: 8.5 0RF benzonatate 200 mg capsule 200 mg PO BID PRN (Reason: cough) 5 Days Qty: 15 0RF Entyvio 300 mg recon soln 300 mg IV Q8W Rx Instructions: administer over 30 mins bupropion HCl 300 mg tablet extended release 24 hr 300 mg PO DAILY pantoprazole 40 mg tablet,delayed release (DR/EC) 40 mg PO DAILY colesevelam 625 mg tablet 1,250 mg PO BID doxycycline hyclate 100 mg tablet 100 mg PO BID 12 Days Qty: 24 0RF cefuroxime axetil 500 mg tablet 500 mg PO BID 12 Days Qty: 24 0RF furosemide 40 mg tablet 40 mg PO DAILY gabapentin 300 mg capsule 600 mg PO BEDTIME Qty: 180 2RF Galzin 50 mg (zinc) capsule 50 mg PO DAILY colesevelam 625 mg tablet 1,250 mg PO BID guaifenesin 100 mg/5 mL liquid 200 mg PO Q4H PRN tacrolimus 0.5 mg capsule 0.5 mg PO Q12H ondansetron 4 mg tablet,disintegrating 4 mg PO Q8H PRN (Reason: nausea and vomiting) Qty: 90 1RF Discharge Date/Time: 03/07/23 22:46
[2023-03-07 19:50] VITALS: BP 155/86; PULSE 95; RESP 18; TEMP 36.6; O2SAT 100
== END 2023-03-07 22:46 | disposition left against medical advice (07) ==
LOC: HO.ED 22:42
PROVIDERS: Physician Assistant Medical; Emergency Provider Emergency Medicine; PCP Internal Medicine
DX: R18.8 Other ascites (principal); Z98.890 Other specified postprocedural states; Z94.4 Liver transplant status; I11.0 Hypertensive heart disease with heart failure; I50.9 Heart failure, unspecified; Z79.899 Other long term (current) drug therapy; Z53.21 Procedure and treatment not carried out due to patient leaving prior to being seen by health care provider
CPT/HCPCS: 36415; 80048; 80076; 85025; 85610; 85730; 99281; 99283

== ENCOUNTER 2023-03-08 11:23 | Outpatient (AMB) | payer MEDICARE, OTHER, SELFPAY ==
--- NOTE | 2023-03-08 11:52 | MHC.PC.OV ---
Vital Signs 03/08/23 11:53 Height 4 ft 11 in Weight 125 lb BMI 25.2 BP 102/64 Blood Pressure Location Lt brachial Position Sitting Pulse 92 Pulse Source Pulse Oximeter Pulse Oximetry (%) 95 Oxygen Delivery Method Room Air Intake Visit Reasons: TCM Pleural effusion and pneu Intake Note: Pt is here today for a TCM visit. Pt states that [facility] put her on Bupropion and they told her to ask her PCP if she is willing to continue prescribing it. Allergies hydromorphone [From Dilaudid] Allergy (Severe, Verified 03/08/23 11:57) Hallucinations losartan Allergy (Intermediate, Verified 03/08/23 11:57) Facial Swelling Sulfa (Sulfonamide Antibiotics) Adverse Reaction (Severe, Verified 03/08/23 11:57) Rash Medication List - Last Reconciled 03/08/23 by Taylor Zapata MD albuterol sulfate 90 mcg/actuation 2 puffs inhalation Q4-6H PRN alendronate (Fosamax) 70 mg PO QWEEK alprazolam 1 mg PO DAILY PRN benzonatate 200 mg PO BID PRN 5 days bupropion HCl 300 mg PO DAILY cefuroxime axetil 500 mg PO BID 12 days cholecalciferol (vitamin D3) (Vitamin D3) 25 mcg PO DAILY colesevelam 1,250 mg PO BID colesevelam 1,250 mg PO BID cyanocobalamin (vitamin B-12) (Vitamin B-12) 1,000 mcg PO DAILY doxycycline hyclate 100 mg PO BID 12 days furosemide 40 mg PO DAILY gabapentin 600 mg (2 x 300 mg) PO BEDTIME guaifenesin 200 mg PO Q4H PRN ondansetron 4 mg PO Q8H PRN pantoprazole 40 mg PO DAILY pyridoxine (vitamin B6) 100 mg PO BID tacrolimus 0.5 mg PO Q12H ursodiol 1 tab PO BID vedolizumab (Entyvio) 300 mg IV Q8W walker (Ultra-Light Rollator misc) As directed zinc acetate (Galzin) 50 mg PO DAILY Tobacco use date assessed: 12/19/22 HPI TCM Pleural effusion and pneu HPI Details Pt presents for f/u hospitalization for pneumonia/ascites. Pt feels weak but denies cough,fever. Pt f/u with GI/liver transplant team for end stage liver cirrhosis. TCM TCM Information Date of Discharge 03/03/23 Discharged From [facility] Interactive Contact Date (Reference documentation from this date) 03/05/23 PFSH Medical History Shakes Frequent falls Ascites Anemia CHF (congestive heart failure) Pancytopenia Anxiety HTN (hypertension) Tremor Chronic diarrhea Primary biliary cholangitis Breast cancer Surgical History H/O wrist surgery Transplant recipient Hx of colonoscopy Hx of esophagogastroduodenoscopy H/O: hysterectomy S/P hip replacement Liver transplant recipient Family History Mother CAD (coronary artery disease) Sister Ovarian cancer Mental health disorder Social History Household Members: Spouse Household Members Other:: , children Housing: House Do you presently have visiting nurse or other home services: No Alcohol intake: never Patient Tobacco Use Status: Never used Tobacco Tobacco use type: Cigarette e-Cigarette/Vaping Use: Never Used Second Hand Smoke Exposure: No Advance Directives Date on File: 12/15/22 service: No Current occupational status: retired Cognitive needs: No Hearing needs: No Vision needs: Yes Questionnaire Thrive Questionnaire Date Thrive assessed: 03/02/23 VICENTA-7 AMB Questionnaire VICENTA-7 Date VICENTA - 7 assessed: 11/09/21 Source: Developed by Drs. Howard Dillon, Shobha Casas, Armando Gaspar and colleagues, with an educational aleah from [employer]. Review of Systems Const All systems reviewed & are unremarkable except as noted in HPI and below Reports no additional complaints Eyes Reports no additional complaints ENT Reports no additional complaints Card Reports no additional complaints Resp Reports no additional complaints GI Reports no additional complaints Reports no additional complaints Physical exam (Primary Care) Vital Signs: Last Vital Signs Pulse 92 03/08/23 11:53 BP 102/64 03/08/23 11:53 Pulse Ox 95 03/08/23 11:53 Oxygen Delivery Method Room Air 03/08/23 11:53 BMI result Body Mass Index 25.2 Tobacco/Smoking Status: Tobacco use Status Tobacco use date assessed 12/19/22 03/08/23 11:52 Patient Tobacco Use Status Never used Tobacco 03/08/23 11:52 Tobacco use type Cigarette 03/08/23 11:52 e-Cigarette/Vaping Use Never Used 03/08/23 11:52 Thrive Assessment: Date of Thrive Assessment Date Thrive assessed 03/02/23 03/08/23 11:52 Const General: no acute distress HENMT Mouth: Normal oral and palatal mucosa present Neck Neck: Yes supple Resp Effort & Inspection: normal respiratory effort Auscultation: clear to auscultation bilaterally Cardio Rhythm: regular rhythm Heart sounds: S1 normal heart sound present and S2 normal heart sound present GI Palpation (GI): Soft to palpation, nontender and Ascites present Auscultation: normal bowel sounds Extrem Other: 3+pitting edema b/l Assessment and Plan Assessment & Plan (1) Pneumonia: Code(s): J18.9 - Pneumonia, unspecified organism Qualifiers: Laterality: right Lung location: upper lobe of lung Pneumonia type: due to unspecified organism Qualified Code(s): J18.9 - Pneumonia, unspecified organism Plan: cont antibiotic and repeat CXR (2) Hearing loss: Code(s): H91.90 - Unspecified hearing loss, unspecified ear Plan: REFER TO ENT (3) Primary biliary cholangitis: Comment: A very pleasant 66-year-old woman known to me from [facility] with history of liver transplant 2015- -PBC Recent liver biopsy shows recurrent PBC Code(s): K74.3 - Primary biliary cirrhosis Plan: F/U WITH GI Orders: Orders XR chest 1V Today J18.9 - Pneumonia, unspecified organism Referrals Ear/Nose/Throat Referral H91.90 - Unspecified hearing loss, unspecified ear Coding Level of Care Code Est Pt Level 4 (96990) Diagnoses Pneumonia of right upper lobe due to infectious organism J18.9 Laterality: right Lung location: upper lobe of lung Pneumonia type: due to unspecified organism Hearing loss H91.90 Primary biliary cholangitis K74.3
[2023-03-08 11:53] VITALS: BP 102/64; PULSE 92; O2SAT 95; BMI 25.2
== END 2023-03-08 13:09 | disposition home or self-care (01) ==
PROVIDERS: PCP Internal Medicine; Visit Provider Internal Medicine
DX: J18.9 Pneumonia, unspecified organism (principal); H91.90 Unspecified hearing loss, unspecified ear; K74.3 Primary biliary cirrhosis
CPT/HCPCS: 99214

== ENCOUNTER 2023-03-08 12:26 | Outpatient (REF) | payer MEDICARE, OTHER, SELFPAY ==
--- NOTE | ~2023-03-08 | XR_ITS ---
EXAMINATION: XR CHEST CLINICAL INFORMATION: Pneumonia. COMPARISON: Chest 02/28/2023 TECHNIQUE: Frontal view of the chest was obtained. FINDINGS: The lungs are well-expanded with elevated right hemidiaphragm. The heart size and pulmonary vascularity is normal. No gross bony abnormality seen. XR/XR chest 1V IMPRESSION: Elevated right hemidiaphragm. No acute process seen.
== END 2023-03-08 12:27 | disposition home or self-care (01) ==
LOC: HO.HMGCX 12:26
PROVIDERS: PCP Internal Medicine; Visit Provider Internal Medicine
DX: J18.9 Pneumonia, unspecified organism (principal)
CPT/HCPCS: 71045

== ENCOUNTER 2023-03-19 07:10 | Day surgery (SDC) | payer MEDICARE, OTHER, SELFPAY ==
--- NOTE | ~2023-03-19 | US_ITS ---
Ultrasound paracentesis History: Ascites. Risks and benefits and possible complications were discussed with the patient and consent form was signed. A safe pocket of ascitic fluid was identified using ultrasound guidance, and the overlying skin was marked. The abdomen prepped and draped in sterile fashion. 1% lidocaine was used as a local anesthetic. Using ultrasound guidance, a 5 fr catheter was placed into the ascitic pocket. 4.1 liters of yellow fluid was removed passively. The catheter was then removed. A few quality audit representative images from before and after the examination were obtained. The procedure was performed by Gabriel Tai PA-C and supervised by Dr. Polk. US/US paracentesis abd w/image Impression: Ultrasound-guided paracentesis as described above. No immediate complications
[2023-03-19 08:03] VITALS: BMI 26.7
[2023-03-19] MEDS: Lidocaine HCl 1 % MPF 5 ML VIAL SUBCUT (09:57)
[2023-03-19 10:00] VITALS: BP 108/65; PULSE 90; RESP 16; TEMP 37.1; O2SAT 96
[2023-03-19 10:15] VITALS: BP 127/74; PULSE 87; RESP 16; TEMP 37.2; O2SAT 99
== END 2023-03-19 10:24 | disposition home or self-care (01) ==
PROVIDERS: Student in an Organized Health Care Education/Training Program; PCP Internal Medicine; Visit Provider Internal Medicine Gastroenterology
DX: R18.8 Other ascites (principal); K76.9 Liver disease, unspecified; I11.0 Hypertensive heart disease with heart failure; I50.9 Heart failure, unspecified; J44.9 Chronic obstructive pulmonary disease, unspecified; K21.9 Gastro-esophageal reflux disease without esophagitis; Z87.891 Personal history of nicotine dependence
CPT/HCPCS: 49083

== ENCOUNTER → 2023-03-19 09:00 | Outpatient (BNV) | payer MEDICARE, OTHER, SELFPAY | PROVIDERS: PCP Internal Medicine; Visit Provider Student in an Organized Health Care Education/Training Program | DX: R18.8 Other ascites (principal) | CPT/HCPCS: 49083 ==

== ENCOUNTER 2023-03-21 11:00 | Outpatient (REF) | payer MEDICARE, OTHER, SELFPAY ==
--- NOTE | ~2023-03-21 | MR_ITS ---
MRI OF THE BRAIN WITHOUT IV CONTRAST INDICATION: Memory issues. Recurrent falls. COMPARISON: None available. TECHNIQUE: Multiplanar multisequence MR imaging of the brain was obtained without IV contrast. FINDINGS: There is no hydrocephalus, extra-axial surface collection, or herniation. There are T2 signal changes within the perirolandic white matter extending along the corticospinal tracts into the internal capsules and brainstem. While nonspecific, these findings can be seen in the setting of ALS, and should be clinically correlated. 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 No definite acute infarcts are identified accounting for artifact. The major flow voids at the skull base are preserved. There is no acute infarct on diffusion-weighted imaging. There is no intracranial hemorrhage on the gradient recalled echo acquisition. The midline structures are normal. The cerebellar tonsils are normally positioned. The cerebellum and brainstem are normal. The craniocervical junction is normal. Osseous marrow signal intensity is homogenous. 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 Large right and moderate left mastoid effusions. MR/MR head/brain wo con IMPRESSION: - There are T2 signal changes within the perirolandic white matter extending along the corticospinal tracts into the internal capsules and brainstem. While nonspecific, these findings can be seen in the setting of ALS, and should be clinically correlated. 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 Postcontrast imaging would be helpful in excluding alternative etiologies. - Large right and moderate left mastoid effusions.
== END 2023-03-21 11:01 | disposition home or self-care (01) ==
LOC: HO.MRI 11:00
PROVIDERS: PCP Internal Medicine; Visit Provider Internal Medicine Gastroenterology
DX: G93.89 Other specified disorders of brain (principal)
CPT/HCPCS: 70551

== ENCOUNTER 2023-04-03 08:45 | Outpatient (AMB) | payer MEDICARE, OTHER, SELFPAY ==
[2023-04-03 10:31] VITALS: BP 120/80; PULSE 87; TEMP 36.8; O2SAT 97; BMI 25.9
--- NOTE | 2023-04-03 10:31 | AM.OFFWIN_ITS ---
Intake Vital Signs 04/03/23 10:31 Height 4 ft 11 in Weight 128 lb BMI 25.9 BP 120/80 Blood Pressure Location Lt brachial Position Sitting Pulse 87 Pulse Source Pulse Oximeter Temp 98.2 F Temp Source Temporal Artery Scan Pulse Oximetry (%) 97 Oxygen Delivery Method Room Air Intake Visit Reasons: ESY/congestion/cough ([phone]) Intake Note: pt is here today for congestion started Patient Tobacco Use Status: Never used Tobacco Allergies hydromorphone [From Dilaudid] Allergy (Severe, Verified 04/03/23 10:53) Hallucinations losartan Allergy (Intermediate, Verified 04/03/23 10:53) Facial Swelling Sulfa (Sulfonamide Antibiotics) Adverse Reaction (Severe, Verified 04/03/23 10:53) Rash Medication List - Last Reconciled 04/03/23 by Demarcus Salguero MD albuterol sulfate 90 mcg/actuation 2 puffs inhalation Q4-6H PRN alendronate (Fosamax) 70 mg PO QWEEK alprazolam 1 mg PO DAILY PRN benzonatate 200 mg PO BID PRN 5 days bupropion HCl 300 mg PO DAILY cefuroxime axetil 500 mg PO BID 12 days cholecalciferol (vitamin D3) (Vitamin D3) 25 mcg PO DAILY colesevelam 1,250 mg (2 x 625 mg) PO BID 30 days colesevelam 1,250 mg (2 x 625 mg) PO BID cyanocobalamin (vitamin B-12) (Vitamin B-12) 1,000 mcg PO DAILY doxycycline hyclate 100 mg PO BID 12 days furosemide 40 mg PO DAILY gabapentin 600 mg (2 x 300 mg) PO BEDTIME guaifenesin 200 mg PO Q4H PRN ondansetron 4 mg PO Q8H PRN pantoprazole 40 mg PO DAILY pyridoxine (vitamin B6) 100 mg PO BID tacrolimus 0.5 mg PO Q12H ursodiol 1 tab PO BID vedolizumab (Entyvio) 300 mg IV Q8W walker (Ultra-Light Rollator misc) As directed zinc acetate (Galzin) 50 mg PO DAILY Do you need a note to return to daycare/school/sports/work: No HPI ESY/congestion/cough ([phone]) HPI Details 67-year-old female presents to the [facility] for a sick visit. Patient is complaining of increased congestion, wheezing and a nonproductive cough. Patient has multiple medical issues. She has ascites which is constantly drained every other week.. She was diagnosed with pleural effusion in the beginning of March which was drained. The cough is new in the past week with mild shortness of breath. [facility] Medical History Shakes Frequent falls Ascites Anemia CHF (congestive heart failure) Pancytopenia Anxiety HTN (hypertension) Tremor Chronic diarrhea Primary biliary cholangitis Breast cancer Surgical History H/O wrist surgery Transplant recipient Hx of colonoscopy Hx of esophagogastroduodenoscopy H/O: hysterectomy S/P hip replacement Liver transplant recipient Family History Mother CAD (coronary artery disease) Sister Ovarian cancer Mental health disorder Social History Household Members: Spouse Household Members Other:: , children Housing: House Do you presently have visiting nurse or other home services: No Alcohol intake: never Patient Tobacco Use Status: Never used Tobacco Tobacco use type: Cigarette e-Cigarette/Vaping Use: Never Used Second Hand Smoke Exposure: No Advance Directives Date on File: 12/15/22 service: No Current occupational status: retired Cognitive needs: No Hearing needs: No Vision needs: Yes Physical Exam Vital Signs: Last Vital Signs Temp 98.2 F 04/03/23 10:31 Pulse 87 04/03/23 10:31 BP 120/80 04/03/23 10:31 Pulse Ox 97 04/03/23 10:31 Oxygen Delivery Method Room Air 04/03/23 10:31 BMI result Body Mass Index 25.9 Const General: cooperative and healthy appearing Nutritional Appearance: well nourished Orientation/consciousness: patient oriented x3 Limitations: no limitations HEENT Head: Yes normal to inspection Eyes General: appearance normal, both eyes and all related structures Neck Neck: Yes normal visual inspection Chest Chest palpation & inspection: normal palpation of entire chest wall Resp Other: Diminished breath sounds bilaterally. Left more than the right lung. Effort & Inspection: normal respiratory effort Neuro General: patient oriented x3 Results AMB Rapid Strep AMB Rapid Strep Negative Last Edit by José Olivo CMA on 04/03/23 10 :51 Results Reviewed Results Reviewed: Laboratory Last Values Strep Scn Rapid Clinic Negative 04/03/23 10:50 Assessment & Plan Assessment & Plan (1) Pleural effusion: Code(s): J90 - Pleural effusion, not elsewhere classified Plan: Chest x-ray reviewed by me. X-ray show worsening pleural effusion. Patient also has significant Ascites on clinical exam. Cefuroxime has been restarted. She has an appointment for draining the fluid from the abdomen. A a note has b een sent to her primary care and pesticide use medical coordinator regarding patient's condition. Orders: Orders AMB Rapid Strep Screen Today Z13.9 - Encounter for screening, unspecified XR chest 2V Today R05.9 - Cough, unspecified Coding Level of Care Code Est Pt Level 4 (68885) Diagnoses Pleural effusion J90
== END 2023-04-03 11:21 | disposition home or self-care (01) ==
PROVIDERS: PCP Internal Medicine; Visit Provider Internal Medicine
DX: J90 Pleural effusion, not elsewhere classified (principal)
CPT/HCPCS: 87880; 99214

== ENCOUNTER 2023-04-03 10:53 | Outpatient (REF) | payer MEDICARE, OTHER, SELFPAY ==
--- NOTE | ~2023-04-03 | XR_ITS ---
EXAMINATION: XR CHEST CLINICAL INFORMATION: Cough. COMPARISON: 02/28/2023 and 03/08/2023 TECHNIQUE: 2 views of the chest were obtained. FINDINGS: Small right pleural effusion has slightly decreased in size compared to 03/08/2023. No acute pulmonary findings. No focal consolidation. Cardiac silhouette is normal in size. Pulmonary vascular pattern is normal. There is atherosclerotic calcification of the aortic arch. Mild multilevel discovertebral degenerative change of the thoracic spine. Cholecystectomy clips are present in the right upper abdomen. XR/XR chest 2V IMPRESSION: * No radiographic evidence of pneumonia. * Small right pleural effusion has decreased compared to 03/08/2023.
== END 2023-04-03 10:54 | disposition home or self-care (01) ==
LOC: HO.HMGCX 10:53
PROVIDERS: PCP Internal Medicine; Visit Provider Internal Medicine
DX: R05.9 Cough, unspecified (principal)
CPT/HCPCS: 71046

== ENCOUNTER 2023-04-04 08:49 | Day surgery (SDC) | payer MEDICARE, OTHER, SELFPAY ==
[2023-04-04 09:26] VITALS: BMI 26.5
[2023-04-04 12:05] VITALS: BP 131/81; PULSE 98; RESP 16; TEMP 36.1; O2SAT 100
[2023-04-04 12:19] VITALS: BP 134/81; PULSE 95; RESP 16; TEMP 36.1; O2SAT 96
[2023-04-05 07:35] LABS: Glucose Pleural Fluid 107
== END 2023-04-04 12:33 | disposition home or self-care (01) ==
LOC: HO.SSS 08:51
PROVIDERS: Internal Medicine Gastroenterology; PCP Internal Medicine; Visit Provider Physician Assistant Surgical
DX: J90 Pleural effusion, not elsewhere classified (principal); J94.8 Other specified pleural conditions; K76.9 Liver disease, unspecified; R18.8 Other ascites
CPT/HCPCS: 32557; 49083; 71045; 82042; 82945; 83615; 83986; 84157; 87070; 87073; 87205; 89051; P9047

== ENCOUNTER → 2023-04-04 09:56 | Outpatient (BNV) | payer MEDICARE, OTHER, SELFPAY | PROVIDERS: PCP Internal Medicine; Visit Provider Radiology Diagnostic Radiology | DX: J94.8 Other specified pleural conditions (principal); R18.8 Other ascites | CPT/HCPCS: 32557; 49083 ==

== ENCOUNTER 2023-04-25 08:46 | Day surgery (SDC) | payer MEDICARE, OTHER, SELFPAY ==
--- NOTE | ~2023-04-25 | US_ITS ---
ULTRASOUND PARACENTESIS HISTORY: Ascites. COMPARISON: 04/04/2023 Risks and benefits and possible complications were discussed with the patient and consent form was signed. A safe pocket of ascitic fluid was identified right lower quadrant using ultrasound guidance, and the overlying skin was marked, prepped and draped in sterile fashion. 1% lidocaine was used as a local anesthetic. Using ultrasound guidance, a 5 fr catheter was placed into the ascitic pocket. 4.7 liters of yellow fluid was removed passively. The catheter was then removed. A few sales representative sales manager images from before and after the examination were obtained. The procedure was performed by Gabriel Tai PA-C and supervised by Dr. Agarwal. US/US paracentesis abd w/image IMPRESSION: -Successful Ultrasound-guided paracentesis as described above. Drainage of 4.7 L yellow ascitic fluid. -No immediate complications
[2023-04-25 09:03] VITALS: BMI 26.3
[2023-04-25 09:09] VITALS: BP 122/72; PULSE 87; RESP 20; TEMP 37.1; O2SAT 94
--- NOTE | 2023-04-25 09:21 | PC.NURSE ---
gregoria hall cerda radiologist concerning pt cough and cold pt denies any fever/chills/bodyaches. sh had the cough for 1 week ls today coarse with scattered rales no sob noted pwd vss resp easy and reg awaiting response back pt aware nad
--- NOTE | 2023-04-25 09:32 | PC.NURSE ---
pt stated she was seen at [facility] NEUROLOGIST ORDERED MRI WHICH SHOWED AN OLD INFARCT. SHE HAS AN APPT WITH STROKE SPECIALIST TOMMOROW SHE WAS SENT TO A NEUROLOGIST BY THE TRANSPLANT TEAM AMADO MCCABE PT HAS NO S/SX STROKE NEUROS WNL
--- NOTE | 2023-04-25 10:20 | PC.NURSE ---
Shobha costuming supervisor made aware of patients recent health changes.
[2023-04-25 11:30] VITALS: BP 152/68; PULSE 89; RESP 20; TEMP 37.1; O2SAT 100
[2023-04-25] MEDS: Lidocaine HCl 1 % MPF 5 ML VIAL SUBCUT (11:36)
== END 2023-04-25 11:45 | disposition home or self-care (01) ==
PROVIDERS: PCP Internal Medicine; Visit Provider Physician Assistant Surgical
DX: K74.60 Unspecified cirrhosis of liver (principal); R18.8 Other ascites; Z94.4 Liver transplant status
CPT/HCPCS: 49083

== ENCOUNTER → 2023-04-25 10:40 | Outpatient (BNV) | payer MEDICARE, OTHER, SELFPAY | PROVIDERS: PCP Internal Medicine; Visit Provider Radiology Diagnostic Radiology | DX: R18.8 Other ascites (principal) | CPT/HCPCS: 49083 ==

== ENCOUNTER 2023-04-26 14:38 | Outpatient (AMB) | payer MEDICARE, OTHER, SELFPAY ==
[2023-04-26 14:42] VITALS: BP 128/70; PULSE 99; TEMP 36.8; O2SAT 99; BMI 25.0
--- NOTE | 2023-04-26 14:42 | AM.OFFWIN_ITS ---
Intake Vital Signs 04/26/23 14:42 Height 4 ft 11 in Weight 124 lb BMI 25.0 BP 128/70 Blood Pressure Location Lt brachial Position Sitting Pulse 99 Pulse Source Pulse Oximeter Temp 98.3 F Temp Source Temporal Artery Scan Pulse Oximetry (%) 99 Oxygen Delivery Method Room Air Intake Visit Reasons: EP fluid in lungs tested at [facility] Intake Note: pt is here today for fluid in lungs started 2 months Patient Tobacco Use Status: Never used Tobacco Allergies hydromorphone [From Dilaudid] Allergy (Severe, Verified 04/26/23 14:50) Hallucinations losartan Allergy (Intermediate, Verified 04/26/23 14:50) Facial Swelling Sulfa (Sulfonamide Antibiotics) Adverse Reaction (Severe, Verified 04/26/23 14:50) Rash Do you need a note to return to daycare/school/sports/work: No HPI HPI Comments History of Present Illness Details 67 y/o female who presents to walk in [facility] today with c/o fluid in the lungs. Pt with h/o Pleural effusion, abdominal Ascites due to Liver Cirrhosis. Currently receiving Paracentesis every other week at [facility]. Her last Paracentesis was 04/25/2023. Pt currently has productive cough. [facility] Medical History Shakes Frequent falls Ascites Anemia CHF (congestive heart failure) Pancytopenia Anxiety HTN (hypertension) Tremor Chronic diarrhea Primary biliary cholangitis Breast cancer Surgical History H/O wrist surgery Transplant recipient Hx of colonoscopy Hx of esophagogastroduodenoscopy H/O: hysterectomy S/P hip replacement Liver transplant recipient Family History Mother CAD (coronary artery disease) Sister Ovarian cancer Mental health disorder Social History Household Members: Spouse Household Members Other:: , children Housing: House Do you presently have visiting nurse or other home services: No Alcohol intake: never Patient Tobacco Use Status: Never used Tobacco Tobacco use type: Cigarette e-Cigarette/Vaping Use: Never Used Second Hand Smoke Exposure: No Advance Directives Date on File: 12/15/22 service: No Current occupational status: retired Cognitive needs: No Hearing needs: No Vision needs: Yes Review of Systems Const All systems reviewed & are unremarkable except as noted in HPI and below Physical Exam Vital Signs: Last Vital Signs Temp 98.3 F 04/26/23 14:42 Pulse 99 04/26/23 14:42 BP 128/70 04/26/23 14:42 Pulse Ox 99 04/26/23 14:42 Oxygen Delivery Method Room Air 04/26/23 14:42 BMI result Body Mass Index 25.0 Const General: comfortable and no acute distress Resp Effort & Inspection: Actively coughing Quality: actively coughing and respiratory effort not decreased Auscultation: crackles bilateral, rales bilateral and wheezes scattered wheezes Cardio Rate: regular rate Rhythm: regular rhythm Assessment & Plan Assessment & Plan (1) Pleural effusion: Code(s): J90 - Pleural effusion, not elsewhere classified Plan: - Continue f/u with PCP and Liver specialist - Next Paracentesis is next week. - Advised to try home remedies; warm fluids with honey, steam shower and cough drops. - Will try Albuterol inhaler, worked last time. (2) Abdominal ascites: Comment: Due to liver failure, status post liver transplant failure for primary biliary choleangitis Code(s): R18.8 - Other ascites Qualifiers: Ascites type: other type Qualified Code(s): R18.8 - Other ascites Plan: - F/u with Liver Specialist as scheduled. - Recommended Paracentesis for lungs. - Advised to go to ED; if experiencing severe SOB, wheezing, fevers and body chills. Medications: New albuterol sulfate 90 mcg/actuation 2 puffs inhalation Q4-6H PRN 6.7 grams 0RF shortness of breath or wheezing J90 - Pleural effusion, not elsewhere classified Coding Level of Care Code Est Pt Level 2 (96065) Diagnoses Pleural effusion J90 Other ascites R18.8 Ascites type: other type Time Spent (min) 10
== END 2023-04-26 15:53 | disposition home or self-care (01) ==
PROVIDERS: PCP Internal Medicine; Visit Provider Nurse Practitioner Family
DX: J90 Pleural effusion, not elsewhere classified (principal); R18.8 Other ascites
CPT/HCPCS: 99213

== ENCOUNTER 2023-05-03 09:53 | Outpatient (REF) | payer MEDICARE, OTHER, SELFPAY ==
--- NOTE | ~2023-05-03 | XR_ITS ---
EXAMINATION: XR CHEST CLINICAL INFORMATION: Pleural effusion, hydrothorax COMPARISON: Chest x-ray on 04/04/2023 TECHNIQUE: 2 views of the chest were obtained. FINDINGS: vascularity. LUNGS: Lungs are markedly hypoinflated. Horizontal fluid level is seen in the right lung base effacing the right hemidiaphragm and right posterior costophrenic angle. No pneumothorax is seen. Electronic device is seen external to the left lower chest. BONES: Bony skeleton is intact. XR/XR chest 2V IMPRESSION: 1. Interval marked decrease in lung expansion. 2. Interval recurrent small right pleural effusion.
== END 2023-05-03 09:54 | disposition home or self-care (01) ==
LOC: HO.XRAY 09:53
PROVIDERS: PCP Internal Medicine; Visit Provider Internal Medicine Gastroenterology
DX: J90 Pleural effusion, not elsewhere classified (principal)
CPT/HCPCS: 71046

== ENCOUNTER 2023-05-08 06:50 | Day surgery (SDC) | payer MEDICARE, OTHER, SELFPAY ==
--- NOTE | ~2023-05-08 | US_ITS ---
ULTRASOUND GUIDED PARACENTESIS HISTORY: Ascites. Risks and benefits and possible complications were discussed with the patient and consent form was signed. A safe pocket of ascitic fluid was identified right lower quadrant using ultrasound guidance, and the overlying skin was marked, prepped and draped in sterile fashion. 1% lidocaine was used as a local anesthetic. Using ultrasound guidance, a 5 fr catheter was placed into the ascitic pocket. 4.4 liters of yellow fluid was removed passively. The catheter was then removed. A few delivery representative images from before and after the examination were obtained. The procedure was performed by Gabriel Tai PA-C and supervised by Dr. Agarwal. US/US paracentesis abd w/image IMPRESSION: Ultrasound-guided paracentesis as described above. No immediate complications
[2023-05-08 07:07] VITALS: BMI 27.2
[2023-05-08] MEDS: Lidocaine HCl 1 % MPF 5 ML VIAL SUBCUT (09:15)
[2023-05-08 09:25] VITALS: BP 121/71; PULSE 90; RESP 16; TEMP 37.1; O2SAT 100
== END 2023-05-08 10:59 | disposition home or self-care (01) ==
LOC: HO.SSS 06:50
PROVIDERS: PCP Internal Medicine; Visit Provider Physician Assistant Surgical
DX: K74.60 Unspecified cirrhosis of liver (principal); R18.8 Other ascites; Z94.4 Liver transplant status; R06.02 Shortness of breath; J90 Pleural effusion, not elsewhere classified; R05.9 Cough, unspecified; I10 Essential (primary) hypertension; Z79.899 Other long term (current) drug therapy; Z88.2 Allergy status to sulfonamides; Z88.8 Allergy status to other drugs, medicaments and biological substances
CPT/HCPCS: 49083

== ENCOUNTER → 2023-05-08 08:30 | Outpatient (BNV) | payer MEDICARE, OTHER, SELFPAY | PROVIDERS: PCP Internal Medicine; Visit Provider Radiology Diagnostic Radiology | DX: R18.8 Other ascites (principal) | CPT/HCPCS: 49083 ==

== ENCOUNTER 2023-05-17 10:54 | Outpatient (REF) | payer MEDICARE, OTHER, SELFPAY ==
--- NOTE | ~2023-05-17 | XR_ITS ---
EXAMINATION: XR CHEST 2 VIEWS CLINICAL INFORMATION: Pleural effusion. COMPARISON: Chest radiographs dated 05/03/2023. TECHNIQUE: Frontal and lateral views of the chest were obtained. FINDINGS: The heart, great vessels, pulmonary vasculature and mediastinum are normal. There is a small to moderate right pleural effusion. No left pleural effusion is seen. The lungs show no focal infiltrate, effusion or pneumothorax. There is no acute osseous abnormality. XR/XR chest 2V IMPRESSION: A small to moderate right pleural effusion is seen.
== END 2023-05-17 10:55 | disposition home or self-care (01) ==
LOC: HO.XRAY 10:54
PROVIDERS: Visit Provider Internal Medicine Gastroenterology
DX: J90 Pleural effusion, not elsewhere classified (principal)
CPT/HCPCS: 71046

== ENCOUNTER 2023-05-18 10:41 | Outpatient (AMB) | payer MEDICARE, OTHER, SELFPAY ==
--- NOTE | 2023-05-18 10:47 | MHC.OFFVIS ---
Intake Vital Signs 05/18/23 10:49 Height 4 ft 11 in Weight 134 lb BMI 27.1 BP 117/63 Blood Pressure Location Lt brachial Position Sitting Pulse 86 Intake Visit Reasons: 6 month follow up Intake Note: Patient 6 month follow up for Ascites. Patient cc: chronic cough all date with white or green flame. Denies any GI issues.. 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 CTe suggested focal ileitis but capsule endoscopy was negative. Meantime Karen had reduced tacrolimus dose and I gave her colvesalam which helped her diarrhea a lot In the interim she was noted to have ascites and had been c/o LUQ pain for 1 year which was worse with food and position as well as breathing and coughing. Ascitic tap was arranged with 1.4 L removed. Studies revealed SAAG 1.8 and pos cell count for SBP with culture neg samples. She had no fever so she was given PO cipro but repeat labs revealed rising CRP and she had ongoing sx she was advised to come in for further treatment. Labs: WCC of 3.9, hemoglobin of 10.5, hematocrit of 32.8, INR of 1.2, CRP of 5.58, total bili of 1.4, AST of 40, alk-phos of 187, ALT of 27, albumin of 3.4. UA shows leukocyte Estrace Abdomen pelvic CT: no acute intra-abdominal process, cirrhosis and evidence of portal hypertension with splenomegaly and moderate volume ascites, small right pleural effusion She has been given albumin and IV rocephin Repeat labs with increasing CRP and increasing WCC in ascitic fluid despite meropenam use. cultures for bacteria, fungi and TB were negative, ID recommended stopping antibiotics. I suspected maybe she had worsening ileitis which may have been causing the ascitic fluid findings and high CRP, so she had CTe which was unrevealing. changed to flagyl anf d/c'ed on budesonide Stool PCR GI panel and c diff were negative she was admitted with cough and sputum 03/2022 Imaging revealed right sided pleural effusion, and moderate ascites. Paracentesis revealed possible SBP with pos cell count 365 but this has actually improved from before. She has been taking budesonide as well for possible enteritis, as previous raised ascitic cell count thought to be due to possible enteritis. Pleural fluid was neg for infection. I applied for entyvio and she is getting this INTERIM: she has been getting work up for stroke, had holter test checking for a-fib not been listed for liver transplant yet due to this issue memory has been good she has stopped entyvio now at her behest due to cost and no bowel complaints still needing paracentesis she has been having cough, using albuterol EXAM: GENERAL: The patient is tremulous, VITAL SIGNS:see workflow HEENT: Nonicteric sclerae, PERRLA, EOMI. Oropharynx clear. Moist mucous membranes. Conjunctivae appear well perfused. No thyroid mass. CHEST: Chest wall is nontender. HEART: Regular rate and rhythm without murmurs. LUNGS: Clear to auscultation bilaterally. ABDOMEN: Soft, positive bowel sounds, tender epigastrium, no organomegaly.no flank tenderness- bloated, shifting dullness --scar noted from transplant SKIN: No rash, + bruising, petechiae, or purpura. NEUROLOGIC: Cranial nerves II-XII intact without motor/sensory deficit. 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 3/ encephalopathy with tremor, slurred speech, blurred, vision --being Ix by neuro 4/ nutrition defcn, tashia severe Vit a and b6 defc--on supplements PLAN: 1/ cont lasix 40 mg 2/ cont to hold entyvio 3/ cont with zinc and other supplements, 4/ she saw Dr Desai in [place] in past and was told to hold on statin, as well as rifaximin for the meantime--has f/u may, I asked her to enquire about [place] shunt 5/ scheduled paracentesis q 2 weeks--will add thora due to moderate effusion and cough, also refer pulm 6/ US q 6 months [facility] Medical History (Updated 05/17/23 @ 12:19 by Soraya Reeder) Fracture of fifth metatarsal bone of right foot Shakes Frequent falls Ascites Anemia CHF (congestive heart failure) Pancytopenia Anxiety HTN (hypertension) Tremor Chronic diarrhea Primary biliary cholangitis Breast cancer Surgical History Hx of sigmoidoscopy H/O wrist surgery Transplant recipient Hx of colonoscopy Hx of esophagogastroduodenoscopy H/O: hysterectomy S/P hip replacement Liver transplant recipient Family History Mother CAD (coronary artery disease) Sister Ovarian cancer Mental health disorder Social History Household Members: Spouse Household Members Other:: , children Housing: House Do you presently have visiting nurse or other home services: No Alcohol intake: never Patient Tobacco Use Status: Never used Tobacco Tobacco use type: Cigarette e-Cigarette/Vaping Use: Never Used Second Hand Smoke Exposure: No Advance Directives Date on File: 12/15/22 service: No Current occupational status: retired Cognitive needs: No Hearing needs: No Vision needs: Yes Physical Exam Vital Signs: Last Vital Signs Pulse 86 05/18/23 10:49 BP 117/63 05/18/23 10:49 BMI result Body Mass Index 27.1 Assessment & Plan Assessment & Plan (1) Pleural effusion: Code(s): J90 - Pleural effusion, not elsewhere classified Plan: 1/ fraility, decompensation related to her liver disease 2/ recurrent ascites, with high SAAG supportive of portal HTN, maybe causing her poor appetite, maybe worse due to 1/ above and also maybe causing 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 3/ encephalopathy with tremor, slurred speech, blurred, vision --being Ix by neuro 4/ nutrition defcn, tashia severe Vit a and b6 defc--on supplements PLAN: 1/ cont lasix 40 mg 2/ cont to hold entyvio 3/ cont with zinc and other supplements, 4/ she saw Dr Desai in [place] in past and was told to hold on statin, as well as rifaximin for the meantime--has f/u may, I asked her to enquire about [place] shunt 5/ scheduled paracentesis q 2 weeks--will add thora due to moderate effusion and cough, also refer pulm 6/ US q 6 months Orders: Referrals Pulmonary Medicine Referral J90 - Pleural effusion, not elsewhere classified Coding Level of Care Code Est Pt Level 4 (76729) Diagnoses Pleural effusion J90
[2023-05-18 10:49] VITALS: BP 117/63; PULSE 86; BMI 27.1
== END 2023-05-18 11:30 | disposition home or self-care (01) ==
PROVIDERS: PCP Internal Medicine; Visit Provider Internal Medicine Gastroenterology
DX: J90 Pleural effusion, not elsewhere classified (principal)
CPT/HCPCS: 99214

== ENCOUNTER → 2023-05-18 10:41 | Outpatient (BNVA) | payer MEDICARE, OTHER, SELFPAY | PROVIDERS: PCP Internal Medicine; Visit Provider Internal Medicine Gastroenterology | DX: J90 Pleural effusion, not elsewhere classified (principal) | CPT/HCPCS: 99212 ==

== ENCOUNTER 2023-05-22 07:01 | Day surgery (SDC) | payer MEDICARE, OTHER, SELFPAY ==
--- NOTE | ~2023-05-22 | US_ITS ---
Ultrasound paracentesis/Limited ultrasound of right chest History: Ascites. Right pleural effusion Risks and benefits and possible complications were discussed with the patient and consent form was signed. A safe pocket of ascitic fluid was identified using ultrasound guidance, and the overlying skin was marked. The abdomen prepped and draped in sterile fashion. 1% lidocaine was used as a local anesthetic. Using ultrasound guidance, a 5 fr catheter was placed into the ascitic pocket. 5.0 liters of yellow fluid was removed passively. The catheter was then removed. Limited ultrasound of the right chest demonstrates a small amount of pleural fluid confined to one intercostal space. Due to the small volume of fluid and the significant improvement in the patient's breathing after the paracentesis, a thoracentesis was not performed A few b2b outside sales representative images from before and after the examination were obtained. The procedure was performed by Gabriel Tai PA-C and supervised by Dr. Rivera. US/US paracentesis abd w/image Impression: Ultrasound-guided paracentesis as described above. Small right pleural effusion. No thoracentesis was performed. No immediate complications
--- NOTE | ~2023-05-22 | US_ITS ---
Ultrasound paracentesis/Limited ultrasound of right chest History: Ascites. Right pleural effusion Risks and benefits and possible complications were discussed with the patient and consent form was signed. A safe pocket of ascitic fluid was identified using ultrasound guidance, and the overlying skin was marked. The abdomen prepped and draped in sterile fashion. 1% lidocaine was used as a local anesthetic. Using ultrasound guidance, a 5 fr catheter was placed into the ascitic pocket. 5.0 liters of yellow fluid was removed passively. The catheter was then removed. Limited ultrasound of the right chest demonstrates a small amount of pleural fluid confined to one intercostal space. Due to the small volume of fluid and the significant improvement in the patient's breathing after the paracentesis, a thoracentesis was not performed A few scheduling representative images from before and after the examination were obtained. The procedure was performed by Gabriel Tai PA-C and supervised by Dr. Rivera. US/US chest Impression: Ultrasound-guided paracentesis as described above. Small right pleural effusion. No thoracentesis was performed. No immediate complications
[2023-05-22 08:34] VITALS: BMI 32.1
[2023-05-22 10:10] VITALS: BP 139/73; PULSE 88; RESP 15; TEMP 36.3; O2SAT 100
[2023-05-22] MEDS: Lidocaine HCl 1 % MPF 5 ML VIAL SUBCUT (10:13)
[2023-05-22 10:25] VITALS: BP 131/81; PULSE 83; RESP 14; TEMP 36.6; O2SAT 99
== END 2023-05-22 10:36 | disposition home or self-care (01) ==
PROVIDERS: Physician Assistant Surgical; PCP Internal Medicine; Visit Provider Internal Medicine Gastroenterology
DX: R18.8 Other ascites (principal); K74.3 Primary biliary cirrhosis; Z94.4 Liver transplant status; J90 Pleural effusion, not elsewhere classified; D64.9 Anemia, unspecified; I11.0 Hypertensive heart disease with heart failure; I50.9 Heart failure, unspecified; Z79.899 Other long term (current) drug therapy; Z88.2 Allergy status to sulfonamides; Z88.8 Allergy status to other drugs, medicaments and biological substances
CPT/HCPCS: 49083; 76604

== ENCOUNTER → 2023-05-22 08:30 | Outpatient (BNV) | payer MEDICARE, OTHER, SELFPAY | PROVIDERS: PCP Internal Medicine; Visit Provider Radiology Vascular & Interventional Radiology | DX: R18.8 Other ascites (principal) | CPT/HCPCS: 49083 ==

== ENCOUNTER 2023-06-07 07:34 | Outpatient (REF) | payer MEDICARE, OTHER, SELFPAY ==
[2023-06-07 07:52] LABS: MANUAL DIFF FLAG NO
[2023-06-07 08:49] LABS: Basophils Percent Auto 0.8 % (0-2); Eosinophils Absolute Auto 0.2 X10*3/uL (0.0-0.4); Eosinophils Percent Auto 4.5 % (0-4); Hemoglobin 10.7 g/dl (12.0-16.0); Imm Gran Abs Auto 0.01 X10*3/uL (0.00-0.03); Imm Gran Pct Auto 0.2 % (0.0-0.4); Lymphocytes Absolute Auto 0.7 X10*3/uL (1.2-4.9); Lymphocytes Percent Auto 13.6 % (20-40); Mean Corpuscular HGB Conc 31.5 g/dl (31.0-35.0); Mean Corpuscular Hemoglobin 30.2 pg (27.0-33.0); Mean Platelet Volume 10.4 fL (9.4-12.3); Monocytes Absolute Auto 0.6 X10*3/uL (0.1-1.2); Monocytes Percent Auto 11.2 % (2-11); Neutrophils Absolute Auto 3.5 x10*3/uL (2.0-8.3); Neutrophils Percent Auto 69.7 % (45-73); Platelet Count 164 X10*3/uL (160-400); Red Blood Count 3.54 X10*6/uL (4.20-5.50); Red Cell Distribution Width 16.4 % (11.0-16.0); White Blood Count 5.1 X10*3/uL (4.8-10.8)
[2023-06-07 09:41] LABS: Alanine Aminotransferase 34 U/L (0-31); Albumin Level 2.6 g/dL (3.5-5.0); Alkaline Phosphatase 190 U/L (39-117); Anion Gap 8 (12-20); Aspartate Amino Transferase 39 U/L (5-31); Bilirubin Total 1.2 mg/dL (0.0-1.0); Blood Urea Nitrogen 14 mg/dL (9-16); Calcium 8.3 mg/dL (8.4-10.2); Carbon Dioxide 27 mmol/L (22-29); Chloride 108 mmol/L (96-108); Estimated Glomerular Filt Rate > 60; Glucose Random 112 mg/dL (60-115); Iron 46 mcg/dL (30-160); Magnesium 1.7 mg/dL (1.6-2.6); Percent Iron Saturation 21 % (15-50); Potassium 3.3 mmol/L (3.3-5.1); Sodium 140 mmol/L (135-145); Total Iron Binding Capacity 214 mcg/dL (228-428); Total Protein 6.4 g/dL (6.5-8.0); Unsaturated Iron Binding 168 ug/dL
[2023-06-07 09:58] LABS: Ferritin 76 ng/mL (10-250); Vitamin D 25-OH Total 17.6 ng/mL (>30)
[2023-06-07 10:21] LABS: Folate 5.9 ng/mL (> or = 4.0); Vitamin B12 > 2000 pg/mL (200-900)
[2023-06-10 13:23] LABS: Zinc 30 mcg/dL (60-130)
[2023-06-12 15:13] LABS: Vitamin B6 22.7 ng/mL (2.1-21.7)
[2023-06-12 15:28] LABS: Vitamin B1 12 nmol/L (8-30)
[2023-06-12 18:24] LABS: Vitamin A 22 mcg/dL (38-98)
[2023-06-12 19:58] LABS: Alpha-Tocopherol 8.4 mg/L (5.7-19.9); Beta-Gamma Tocopherol <1.0 mg/L (<=4.3)
[2023-06-13 21:28] LABS: Vitamin K1 156 pg/mL (130-1500)
[2023-06-14 00:37] LABS: Vitamin B5 (Pantothenic Acid) <40 ng/mL (<275)
[2023-06-14 03:34] LABS: Vitamin C 1.4 mg/dL (0.3-2.7)
[2023-06-15 12:48] LABS: Nicotinamide 27 ng/mL; Vit B3 - Nicotinic Acid <20 ng/mL
== END 2023-06-07 07:35 | disposition home or self-care (01) ==
LOC: HO.LAB 07:34
PROVIDERS: PCP Internal Medicine; Visit Provider Internal Medicine Gastroenterology
DX: Z13.89 Encounter for screening for other disorder (principal)
CPT/HCPCS: 36415; 80053; 82180; 82306; 82607; 82728; 82746; 83540; 83735; 84207; 84425; 84446; 84590; 84591; 84597; 84630; 85025; 86140

== ENCOUNTER 2023-06-07 07:53 | Day surgery (SDC) | payer MEDICARE, OTHER, SELFPAY ==
--- NOTE | ~2023-06-07 | US_ITS ---
ULTRASOUND GUIDED PARACENTESIS HISTORY: Ascites. Therapeutic drainage. Risks and benefits and possible complications were discussed with the patient and consent form was signed. A safe pocket of ascitic fluid was identified left lower quadrant using ultrasound guidance, and the overlying skin was marked, prepped and draped in sterile fashion. 1% lidocaine was used as a local anesthetic. Using ultrasound guidance, a 5 fr catheter was placed into the ascitic pocket. 5.5 liters of yellow fluid was removed passively. The catheter was then removed. A few direct marketing representative images from before and after the examination were obtained. The procedure was performed by Gabriel Tai PA-C and supervised by Dr. Agarwal. US/US paracentesis abd w/image IMPRESSION: Successful Ultrasound-guided paracentesis as described above. No immediate complications
[2023-06-07 09:09] VITALS: BMI 27.3
[2023-06-07 09:12] VITALS: BP 114/74; PULSE 97; RESP 18; TEMP 36.6; O2SAT 98
[2023-06-07] MEDS: Lidocaine HCl 1 % MPF 5 ML VIAL SUBCUT (11:14)
[2023-06-07 11:15] VITALS: BP 118/71; PULSE 98; RESP 14; TEMP 36.1; O2SAT 100
[2023-06-07 11:30] VITALS: BP 124/74; PULSE 90; RESP 15; TEMP 36.1; O2SAT 100
[2023-06-07 11:45] VITALS: BP 120/75; PULSE 89; RESP 14; TEMP 36.1; O2SAT 100
== END 2023-06-07 12:08 | disposition home or self-care (01) ==
LOC: HO.SSS 07:55
PROVIDERS: Physician Assistant Surgical; PCP Internal Medicine; Visit Provider Internal Medicine Gastroenterology
DX: R18.8 Other ascites (principal); K76.9 Liver disease, unspecified; G93.89 Other specified disorders of brain; K50.10 Crohn's disease of large intestine without complications; D69.6 Thrombocytopenia, unspecified; R29.6 Repeated falls; I11.0 Hypertensive heart disease with heart failure; I50.9 Heart failure, unspecified; Z85.3 Personal history of malignant neoplasm of breast
CPT/HCPCS: 36415; 49083; 80053; 82180; 82306; 82607; 82728; 82746; 83540; 83735; 84207; 84425; 84446; 84590; 84591; 84597; 84630; 85025; 86140; P9047

== ENCOUNTER → 2023-06-07 09:48 | Outpatient (BNV) | payer MEDICARE, OTHER, SELFPAY | PROVIDERS: PCP Internal Medicine; Visit Provider Physician Assistant Surgical | DX: R18.8 Other ascites (principal) | CPT/HCPCS: 49083 ==

== ENCOUNTER 2023-06-11 14:18 | Outpatient (REF) | payer MEDICARE, OTHER, SELFPAY ==
--- NOTE | ~2023-06-11 | US_ITS ---
EXAMINATION: US CHEST CLINICAL INFORMATION: Pleural effusion COMPARISON: Ultrasound chest from 05/22/2023. TECHNIQUE: Sonographic imaging of the chest was performed by the pet technologist and a few images are saved in the electronic picture archive for review. FINDINGS: Ascitic fluid is visualized in the right upper quadrant the abdomen. There is a small right pleural effusion. This appears decreased compared to 05/22/2023. A left pleural effusion is noted. On images 5-7, the pleural fluid is seen at a depth of at least 1 cm from the skin surface with center of pocket of fluid at a depth of approximately 4 cm from the skin surface. US/US chest IMPRESSION: * There is moderate ascites of the partially visualized right upper quadrant of the abdomen. * Bilateral pleural effusions are present (left larger than right).
== END 2023-06-11 14:19 | disposition home or self-care (01) ==
LOC: HO.US 14:18
PROVIDERS: PCP Internal Medicine; Visit Provider Internal Medicine Gastroenterology
DX: J90 Pleural effusion, not elsewhere classified (principal); R18.8 Other ascites
CPT/HCPCS: 76604

== ENCOUNTER 2023-06-13 08:44 | Outpatient (AMB) | payer MEDICARE, OTHER, SELFPAY ==
--- NOTE | 2023-06-13 08:45 | A.OFFPC_ITS ---
Vital Signs 06/13/23 08:46 Height 4 ft 11 in Weight 128 lb BMI 25.9 BP 118/74 Blood Pressure Location Lt brachial Position Sitting Pulse 94 Pulse Source Pulse Oximeter Pulse Oximetry (%) 99 Oxygen Delivery Method Room Air Intake Visit Reasons: Ongoing cough Intake Note: Pt is here today for a follow up visit on cough. Pt states that she was hospitalized for it twice. Allergies hydromorphone [From Dilaudid] Allergy (Severe, Verified 06/13/23 08:50) Hallucinations losartan Allergy (Intermediate, Verified 06/13/23 08:50) Facial Swelling Sulfa (Sulfonamide Antibiotics) Adverse Reaction (Severe, Verified 06/13/23 08:50) Rash Medication List - Last Reconciled 06/13/23 by Taylor Zapata MD albuterol sulfate 90 mcg/actuation 2 puffs inhalation Q4-6H PRN alprazolam 1 mg PO DAILY PRN aspirin 81 mg PO DAILY bupropion HCl 300 mg PO DAILY cholecalciferol (vitamin D3) (Vitamin D3) 25 mcg PO DAILY colesevelam 1,250 mg (2 x 625 mg) PO BID 30 days cyanocobalamin (vitamin B-12) (Vitamin B-12) 1,000 mcg PO DAILY esomeprazole magnesium 40 mg PO DAILY fluticasone propionate 50 mcg/actuation (Flonase Allergy Relief) 1 spray intranasal DAILY furosemide 40 mg PO DAILY gabapentin 600 mg (2 x 300 mg) PO BEDTIME guaifenesin 200 mg PO Q4H PRN inhalational spacing device (Alex Aerosol [place] Enhancer spacer) USE DIRECTED ondansetron 4 mg PO Q8H PRN pyridoxine (vitamin B6) 100 mg PO BID tacrolimus 0.5 mg PO Q12H ursodiol 1 tab PO BID walker (Ultra-Light Rollator misc) As directed zinc acetate (Galzin) 50 mg PO DAILY Tobacco use date assessed: 06/13/23 Fall risk assessment: 2 + Falls in past year Last assessed Fall Risk: 06/13/23 Dental Screening Dental Screen Date: 06/13/23 Did you have a dental visit in the last 12 months?: Yes Did you have a dental problem in the last 6 months where you did not have access to dental care?: No Was dental information given to patient?: Patient has dentist HPI Ongoing cough HPI Details Pt presents for f/u. Pt c/o chronic cough, with white sputum for a few months, worse when at night, chronic postnasal drip, nasal congestion. Patient has been hospitalized twice with a complaint of the cough as well as recurrent ascites. She would extensive workup and was treated with multiple antibiotics for possible spontaneous peritonitis ileitis as well as pneumonia. Pt has been taking Marlena and Flonase nasal spray for few months and guaifenesin for at least a month. Patient has an appointment with pulmonology next week. Pt follows up with GI at [facility] and [facility] for end stage liver failure and recurrent ascites, getting paracentesis every 2 weeks. Patient has been taking Fosamax for osteoporosis but because of possible GI side effects she was recommended by [facility] to switch to Reclast infusion. [facility] Medical History (Updated 06/13/23 @ 10:04 by Taylor Zapata MD) Fracture of fifth metatarsal bone of right foot Shakes Frequent falls Ascites Anemia CHF (congestive heart failure) Pancytopenia Anxiety HTN (hypertension) Tremor Chronic diarrhea Primary biliary cholangitis Breast cancer Surgical History Hx of sigmoidoscopy H/O wrist surgery Transplant recipient Hx of colonoscopy Hx of esophagogastroduodenoscopy H/O: hysterectomy S/P hip replacement Liver transplant recipient Family History Mother CAD (coronary artery disease) Sister Ovarian cancer Mental health disorder Social History Household Members: Spouse Household Members Other:: , children Housing: House Do you presently have visiting nurse or other home services: No Alcohol intake: never Patient Tobacco Use Status: Never used Tobacco Tobacco use type: Cigarette e-Cigarette/Vaping Use: Never Used Second Hand Smoke Exposure: No Advance Directives Date on File: 12/15/22 service: No Current occupational status: retired Cognitive needs: No Hearing needs: No Vision needs: Yes Questionnaire PHQ-9 Over the last 2 weeks, how often have you been bothered by any of the following problems? 1. Little interest or pleasure in doing things: not at all 2. Feeling down, depressed, or hopeless: not at all 3. Trouble falling or staying asleep, or sleeping too much: not at all 4. Feeling tired or having little energy: several days 5. Poor appetite or overeating: not at all 6. Feeling bad about yourself - or that you are a failure or have let yourself or your family down: not at all 7. Trouble concentrating on things, such as reading the newspaper or watching television: not at all 8. Moving or speaking so slowly that other people could have noticed. Or the opposite - being so fidgety or restless that you have been moving around a lot more than usual: not at all 9. Thoughts that you would be better off or of hurting yourself in some way: not at all Total score: 1 Depression Screening Interpretation: Negative Depression Screening Done: Yes Source: Developed by Drs. Howard Dillon, Shobha Casas, Armando Gaspar and colleagues, with an educational aleah from [employer]. Thrive Questionnaire Date Thrive assessed: 06/13/23 I am a: Patient What is your living situation today?: I have a steady place to live Within the past 12 months, did the food you bought not last and you didn't have the money to get more?: Never true Within the past 12 months, did you worry whether your food would run out before you got money to buy more?: Never true Do you have trouble paying for medicines?: No Do you have trouble getting transportation to medical appointments?: No Do you have trouble paying your heating and electricity bill?: No Do you have trouble taking care of your child, family member or friend?: No Do you have trouble with day-to-day activities such as bathing, preparing meals, shopping, managing finances, etc.?: No Are you currently unemployed and looking for a job?: No Are you interested in more education?: No Please select the resources that you would like help with: None THRIVE Score: 0 AUDIT C Alcohol Use Questionnaire (AUDIT-C) 1. How often do you have a drink containing alcohol?: Never 3. How often do you have six or more drinks on one occasion?: Never Total Score: 0 VICENTA-7 AMB Questionnaire VICENTA-7 Date VICENTA - 7 assessed: 06/13/23 Feeling nervous, anxious, or on edge: 0 = Not at all Not being able to stop or control worryin = Not at all Worrying too much about different things: 0 = Not at all Trouble relaxin = Not at all Being so restless that it is hard to sit still: 0 = Not at all Becoming easily annoyed or irritable: 0 = Not at all Feeling afraid as if something awful might happen: 0 = Not at all Total VICENTA-7 score (0-4 normal; 5-9 mild; 10-14 moderate; 15-21 severe): 0 Source: Developed by Drs. Howard Dillon, Shobha Casas, Armando Gaspar and colleagues, with an educational aleah from [employer]. Review of Systems Const All systems reviewed & are unremarkable except as noted in HPI and below Reports no additional complaints Eyes Reports no additional complaints ENT Reports no additional complaints Card Reports no additional complaints Resp Reports no additional complaints GI Reports no additional complaints Reports no additional complaints Physical exam (Primary Care) Vital Signs: Last Vital Signs Pulse 94 06/13/23 08:46 BP 118/74 06/13/23 08:46 Pulse Ox 99 06/13/23 08:46 Oxygen Delivery Method Room Air 06/13/23 08:46 BMI result Body Mass Index 25.9 Tobacco/Smoking Status: Tobacco use Status Tobacco use date assessed 06/13/23 06/13/23 08:52 Patient Tobacco Use Status Never used Tobacco 06/13/23 08:52 Tobacco use type Cigarette 06/13/23 08:52 e-Cigarette/Vaping Use Never Used 06/13/23 08:52 PHQ-9: PHQ-9 Score PHQ-9: Total score 1 06/13/23 08:56 Depression Screening Interpretation: Negative Thrive Assessment: Date of Thrive Assessment Date Thrive assessed 06/13/23 06/13/23 08:56 Const General: no acute distress HENMT Head: Yes normal to inspection Ears: TM's normal bilaterally Face and sinus: Yes normal facial exam Mouth: Normal oral and palatal mucosa present Throat: Yes posterior oropharynx normal Neck Neck: Yes no lymphadenopathy and Yes supple Resp Effort & Inspection: normal respiratory effort Auscultation: clear to auscultation bilaterally and diminished lung sounds on the right (base) Cardio Rhythm: regular rhythm Heart sounds: S1 normal heart sound present and S2 normal heart sound present GI Inspection: Yes distended (ascites) Palpation (GI): nontender Auscultation: normal bowel sounds Extrem Other: 1+ pitting edema bilaterally Assessment and Plan Assessment & Plan (1) Hearing loss: Code(s): H91.90 - Unspecified hearing loss, unspecified ear Plan: refer for hearing test (2) Pleural effusion: Comment: Status post therapeutic pleurocentesis 03/23 Code(s): J90 - Pleural effusion, not elsewhere classified Plan: Continue furosemide (3) Abdominal ascites: Comment: Due to liver failure, status post liver transplant failure for primary biliary choleangitis Code(s): R18.8 - Other ascites Qualifiers: Ascites type: other type Qualified Code(s): R18.8 - Other ascites Plan: Follow-up with GI (4) Chronic cough: Code(s): R05.3 - Chronic cough Plan: Continue Flonase and Marlena for chronic postnasal drip. Patient was advised to stop taking guaifenesin and albuterol as they have not been effective. She has an appointment with spring tacker next week (5) Osteoporosis: Comment: DEXA 12/23 , change Fosamax to Reclast infusion 06/23 Code(s): M81.0 - Age-related osteoporosis without current pathological fracture Plan: Switch to Reclast infusion because of GI effects from Fosamax Orders: Orders SARS-CoV2/FLU/RSV Today R09.89 - Other specified symptoms and signs involving the circulatory and respiratory systems Referrals Speech and Hearing Referral H91.90 - Unspecified hearing loss, unspecified ear Medications: New zoledronic idmd-joydhnmr-dxnnn 5 mg/100 mL (Reclast) 1 ea IV ONCE 100 mL 0RF zoledronic xmjp-edbtsked-wxfxp 5 mg/100 mL (Reclast) 1 ea IV ONCE 100 mL 0RF Coding Level of Care Code Est Pt Level 4 (29736) Diagnoses Hearing loss H91.90 Pleural effusion J90 Other ascites R18.8 Ascites type: other type Chronic cough R05.3 Osteoporosis M81.0
[2023-06-13 08:46] VITALS: BP 118/74; PULSE 94; O2SAT 99; BMI 25.9
== END 2023-06-13 10:05 | disposition home or self-care (01) ==
PROVIDERS: PCP Internal Medicine; Visit Provider Internal Medicine
DX: J90 Pleural effusion, not elsewhere classified (principal); R18.8 Other ascites; R05.3 Chronic cough; M81.0 Age-related osteoporosis without current pathological fracture; H91.90 Unspecified hearing loss, unspecified ear
CPT/HCPCS: 99214

== ENCOUNTER 2023-06-13 09:44 | Outpatient (REF) | payer MEDICARE, OTHER, SELFPAY ==
[2023-06-13 14:26] LABS: Influenza A PCR NEGATIVE (Negative); Influenza B PCR NEGATIVE (Negative); Resp Syncy Virus RNA Qual PCR NEGATIVE (Negative); SARS COV2 PCR INHOUSE NEGATIVE (Negative)
== END 2023-06-13 09:45 | disposition home or self-care (01) ==
LOC: HO.LAB 09:44
PROVIDERS: Visit Provider Internal Medicine
DX: R09.89 Other specified symptoms and signs involving the circulatory and respiratory systems (principal); Z11.52 Encounter for screening for COVID-19; Z20.828 Contact with and (suspected) exposure to other viral communicable diseases
CPT/HCPCS: 0241U

== ENCOUNTER 2023-06-18 09:06 | Outpatient (AMB) | payer MEDICARE, OTHER, SELFPAY ==
--- NOTE | 2023-06-18 09:08 | MHC.OFFVIS ---
Intake Vital Signs 06/18/23 09:10 Height 4 ft 11 in Weight 136 lb 10.986 oz BMI 27.6 BP 108/62 Blood Pressure Location Lt brachial Position Sitting Pulse 102 H Pulse Source Pulse Oximeter Pulse Oximetry (%) 99 Oxygen Delivery Method Room Air Intake Visit Reasons: Pleural effusion Exterior Interior Specialist Required: No Salesperson Pets And Pet Supplies: Salesperson Pets And Pet Supplies offered & declined Accompanied by: Daughter Allergies hydromorphone [From Dilaudid] Allergy (Severe, Verified 06/19/23 08:51) Hallucinations losartan Allergy (Intermediate, Verified 06/19/23 08:51) Facial Swelling Sulfa (Sulfonamide Antibiotics) Adverse Reaction (Severe, Verified 06/19/23 08:51) Rash Medication List - Last Reconciled 06/18/23 by Jessy Alonso LPN albuterol sulfate 90 mcg/actuation 2 puffs inhalation Q4-6H PRN alprazolam 1 mg PO DAILY PRN aspirin 81 mg PO DAILY bupropion HCl 300 mg PO DAILY cholecalciferol (vitamin D3) (Vitamin D3) 25 mcg PO DAILY colesevelam 1,250 mg (2 x 625 mg) PO BID 30 days cyanocobalamin (vitamin B-12) (Vitamin B-12) 1,000 mcg PO DAILY esomeprazole magnesium 40 mg PO DAILY fluticasone propionate 50 mcg/actuation (Flonase Allergy Relief) 1 spray intranasal DAILY furosemide 40 mg PO DAILY gabapentin 600 mg (2 x 300 mg) PO BEDTIME guaifenesin 200 mg PO Q4H PRN inhalational spacing device (Alex Aerosol [place] Enhancer spacer) USE DIRECTED ondansetron 4 mg PO Q8H PRN pyridoxine (vitamin B6) 100 mg PO BID tacrolimus 0.5 mg PO Q12H ursodiol 1 tab PO BID walker (Ultra-Light Rollator misc) As directed zinc acetate (Galzin) 50 mg PO DAILY zoledronic wwkd-apgozkqd-oezkc 5 mg/100 mL (Reclast) 1 ea IV ONCE HPI Pleural effusion HPI Details Praveena is pleasant 67 year old female, minimal former smoker, with underlying primary biliary cholangitis, cirrhosis s/p liver transplant 2016 on tacrolimus now with failing transplant, HTN, and h/o right breast cancer s/p lumpectomy/radiation 20 yrs ago. She is under the care of [facility] and has been cleared to go back on the liver transplant list. Unfortunately, she has developed significant ascites and more recently pleural effusions. She is maintained on lasix 40 mg qd, previously tried 80 mg but resulted in hypokalemia. Providers at [facility] recommended against spironolactone due to possible hyperkalemia while on tacrolimus. She is under the care of [facility] and undergoes therapeutic paracentesis q 2 weeks and per GI note, will likely be undergoing combined parencentesis and thoracentesis. Prior chest US on 06/10 revealed bilateral pleural effusions. 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 Her cough has been productive with yellow sputum since January, had been evaluated at [facility] on two seaparate occasions ultimately being treated with levaquin and augmentin in January then admitted treated with IV antibiotics as well as doxycyline. She reports moderate improvements, however still reports productive cough, wheezing at night and dyspnea on exertion. She was prescribed albuterol with no effect. She denies any prior history of asthma. She denies any pertinent family history. Recent echo and CT performed at [facility] reportedly unremarkable. [facility] Medical History (Updated 06/19/23 @ 12:22 by Julissa Campos NP) Fracture of fifth metatarsal bone of right foot Shakes Frequent falls Ascites Anemia CHF (congestive heart failure) Pancytopenia Anxiety HTN (hypertension) Tremor Chronic diarrhea Primary biliary cholangitis Breast cancer Surgical History Hx of sigmoidoscopy H/O wrist surgery Transplant recipient Hx of colonoscopy Hx of esophagogastroduodenoscopy H/O: hysterectomy S/P hip replacement Liver transplant recipient Family History Mother CAD (coronary artery disease) Sister Ovarian cancer Mental health disorder Social History Household Members: Spouse Household Members Other:: , children Housing: House Do you presently have visiting nurse or other home services: No Alcohol intake: never Patient Tobacco Use Status: Tobacco use Unknown Tobacco use type: Cigarette e-Cigarette/Vaping Use: Never Used Second Hand Smoke Exposure: No Advance Directives: No Advance Directives Information Provided: Yes Advance Directives Date on File: 12/15/22 service: No Current occupational status: retired Cognitive needs: No Hearing needs: No Vision needs: Yes Review of Systems Const Denies chills, Denies excessive sweating, Denies fever(s), Denies headache(s) and Denies night sweats Eyes Denies dry eyes, Denies irritation and Denies itchy eyes ENT Reports Normal hearing present, Denies headache(s), Denies nasal congestion, Denies nasal discharge, Denies post nasal drip and Denies sore throat Card Denies chest pain, Denies chest pain at rest, Denies chest pain with activity, Denies claudication, Denies orthopnea and Denies paroxysmal nocturnal dyspnea Resp Denies chest congestion, Denies excessive phlegm production, Denies pain on inspiration, Denies pain with cough and Denies stridor Musc Denies myalgias Neuro Reports Normal hearing present and Denies headache(s) Endo Denies excessive sweating Aller/Immun Denies itchy eyes and Denies seasonal rhinorrhea Physical Exam Vital Signs: Last Vital Signs Pulse 102 H 06/18/23 09:10 BP 108/62 06/18/23 09:10 Pulse Ox 99 06/18/23 09:10 Oxygen Delivery Method Room Air 06/18/23 09:10 BMI result Body Mass Index 27.6 Const General: cooperative, comfortable, no acute distress, well developed and alert Orientation/consciousness: patient oriented x3 Limitations: no limitations HEENT Head: Yes normal to inspection, Yes normocephalic and Yes atraumatic Ears: hearing grossly normal bilaterally and external ears normal Eyes General: appearance normal, both eyes and all related structures Eyelids: Yes eyelids normal EOM: EOMs intact bilaterally Neck Neck: Yes normal visual inspection Chest Chest palpation & inspection: normal inspection of the chest Resp Effort & Inspection: normal respiratory effort, able to speak in complete sentences, no audible wheezes, no stridor, not tachypneic, no tripod positioning and no use of accessory muscles Cardio Rate: regular rate Rhythm: regular rhythm Skin Other: warm, dry General skin exam: no rashes or lesions noted Neuro General: patient oriented x3 Cranial nerves: Yes Normal hearing present Cognition (Neuro): normal cognition Gait exam (Neuro): Normal gait present Extrem Other: BLE edema 2-3+ Psych Appearance: grossly normal and well kempt Speech and movement: Normal speech and movement present and Clear speech present Affect: normal affect Attitude: cooperative Thought process: Normal thought process present Thought content: Normal thought content present Insight: Good insight present (Psych) Judgement: Good judgement present (Psych) Assessment & Plan Assessment & Plan (1) Pleural effusion: Code(s): J90 - Pleural effusion, not elsewhere classified (2) Chronic cough: Code(s): R05.3 - Chronic cough (3) Dyspnea: Code(s): R06.00 - Dyspnea, unspecified (4) Abdominal ascites: Comment: Due to liver failure, status post liver transplant failure for primary biliary choleangitis Code(s): R18.8 - Other ascites Qualifiers: Ascites type: other type Qualified Code(s): R18.8 - Other ascites Plan Praveena's symptoms are likely related to underlying liver failure with hepatic hydrothorax. There may be an infectious component as she reports productive cough with yellow sputum. Since patient has had multiple antibiotics and persistent cough, will attempt sputum culture. Would recommend further diuresis, however patient unable to tolerate increased lasix and recommendations were made against spironolactone due to possibility of hyperkalemia with associated tacrolimus use. Reviewed importance of low sodium diet and adherence to medications. GI recommended possible [place] shunt and patient will be discussing with [facility], ultimately patient is in need of second liver transplant. Patient is scheduled for parencetesis tomorrow and chest US will be performed, therefore will hold off on ordering additional imaging at this time.Will follow up with patient after sputum results. All questions were answered and patient is in agreement of plan. Orders: Orders Sputum Cult + Gram stain 06/18/23 R05.3 - Chronic cough Coding Level of Care Code New Pt Level 4 (33531) Diagnoses Pleural effusion J90 Chronic cough R05.3 Dyspnea R06.00 Other ascites R18.8 Ascites type: other type
[2023-06-18 09:10] VITALS: BP 108/62; PULSE 102; O2SAT 99; BMI 27.6
== END 2023-06-18 10:02 | disposition home or self-care (01) ==
PROVIDERS: PCP Internal Medicine; Referring Provider Internal Medicine Gastroenterology; Visit Provider Nurse Practitioner Family
DX: J90 Pleural effusion, not elsewhere classified (principal); R05.3 Chronic cough; R06.00 Dyspnea, unspecified; R18.8 Other ascites
CPT/HCPCS: 99204

== ENCOUNTER → 2023-06-18 09:06 | Outpatient (BNVA) | payer MEDICARE, OTHER, SELFPAY | PROVIDERS: PCP Internal Medicine; Referring Provider Internal Medicine Gastroenterology; Visit Provider Nurse Practitioner Family | DX: J90 Pleural effusion, not elsewhere classified (principal); R05.3 Chronic cough; R06.00 Dyspnea, unspecified; R18.8 Other ascites | CPT/HCPCS: 99202 ==

== ENCOUNTER 2023-06-19 08:03 | Day surgery (SDC) | payer MEDICARE, OTHER, SELFPAY ==
--- NOTE | ~2023-06-19 | US_ITS ---
ULTRASOUND GUIDED PARACENTESIS HISTORY: Ascites. Therapeutic drainage Risks and benefits and possible complications were discussed with the patient and consent form was signed. A safe pocket of ascitic fluid was identified using ultrasound guidance, and the overlying skin was marked. The abdomen prepped and draped in sterile fashion. 1% lidocaine was used as a local anesthetic. Using ultrasound guidance, a 5 fr catheter was placed into the ascitic pocket. 5.2 liters of yellow fluid was removed passively. The catheter was then removed. A few quality audit representative images from before and after the examination were obtained. The procedure was performed by Gabriel Tai PA-C and supervised by Dr. Agarwal. US/US paracentesis abd w/image IMPRESSION: Ultrasound-guided paracentesis as described above. No immediate complications
[2023-06-19 08:26] VITALS: BMI 27.3
[2023-06-19] MEDS: Lidocaine HCl 1 % MPF 5 ML VIAL SUBCUT (10:13)
[2023-06-19 10:20] VITALS: BP 142/77; PULSE 89; RESP 18; TEMP 36.2; O2SAT 99
[2023-06-19] MEDS: Albumin Human 25 % 100 ML IV (10:30)
[2023-06-19 10:35] VITALS: BP 115/73; PULSE 96; RESP 16; O2SAT 99
[2023-06-19 10:50] VITALS: BP 123/72; PULSE 91; RESP 16; O2SAT 99
[2023-06-19] MEDS: Albumin Human 25 % 50 ML 100 ML IV (10:54)
[2023-06-19 11:05] VITALS: BP 133/77; PULSE 94; RESP 16; TEMP 37; O2SAT 99
== END 2023-06-19 11:23 | disposition home or self-care (01) ==
PROVIDERS: Student in an Organized Health Care Education/Training Program; PCP Internal Medicine; Visit Provider Internal Medicine Gastroenterology
DX: R18.8 Other ascites (principal); K76.9 Liver disease, unspecified
CPT/HCPCS: 49083; P9047

== ENCOUNTER → 2023-06-19 09:23 | Outpatient (BNV) | payer MEDICARE, OTHER, SELFPAY | PROVIDERS: PCP Internal Medicine; Visit Provider Physician Assistant Surgical | DX: K76.9 Liver disease, unspecified (principal) | CPT/HCPCS: 49083 ==

== ENCOUNTER 2023-06-20 11:58 | Outpatient (REF) | payer MEDICARE, OTHER, SELFPAY | END 2023-06-20 11:59 | disposition home or self-care (01) | LOC: HO.LNP 11:58 | PROVIDERS: Visit Provider Nurse Practitioner Family | DX: R05.3 Chronic cough (principal) | CPT/HCPCS: 87070; 87205 ==

== ENCOUNTER 2023-06-29 09:03 | Outpatient (REF) | payer MEDICARE, OTHER, SELFPAY ==
[2023-06-29 10:21] LABS: INTERNATIONAL NORM RATIO 1.4 (0.9-1.1); Prothrombin Time 16.5 SEC (11.1-13.3)
[2023-06-29 11:17] LABS: Alanine Aminotransferase 35 U/L (0-31); Albumin Level 2.7 g/dL (3.5-5.0); Alkaline Phosphatase 211 U/L (39-117); Aspartate Amino Transferase 40 U/L (5-31); Bilirubin Direct 0.9 mg/dL (0.0-0.5); Bilirubin Total 1.3 mg/dL (0.0-1.0); Total Protein 6.1 g/dL (6.5-8.0)
[2023-06-29 12:42] LABS: Anion Gap 11 (12-20)
[2023-06-29 12:45] LABS: Blood Urea Nitrogen 10 mg/dL (9-16); Calcium 7.9 mg/dL (8.4-10.2); Carbon Dioxide 22 mmol/L (22-29); Chloride 109 mmol/L (96-108); Estimated Glomerular Filt Rate > 60; Glucose Random 97 mg/dL (60-115); Potassium 3.1 mmol/L (3.3-5.1); Sodium 139 mmol/L (135-145)
== END 2023-06-29 09:04 | disposition home or self-care (01) ==
LOC: HO.LAB 09:03
PROVIDERS: Visit Provider Internal Medicine Gastroenterology
DX: R94.5 Abnormal results of liver function studies (principal)
CPT/HCPCS: 36415; 80048; 80076; 85610

== ENCOUNTER 2023-07-05 07:46 | Day surgery (SDC) | payer MEDICARE, OTHER, SELFPAY ==
--- NOTE | ~2023-07-05 | US_ITS ---
ULTRASOUND GUIDED PARACENTESIS HISTORY: Ascites. Therapeutic drainage. Risks and benefits and possible complications were discussed with the patient and consent form was signed. A safe pocket of ascitic fluid right lower quadrant was identified using ultrasound guidance, and the overlying skin was marked, prepped and draped in sterile fashion. 1% lidocaine was used as a local anesthetic. Using ultrasound guidance, a 5 fr catheter was placed into the ascitic pocket. 5.2 liters of yellow fluid was removed passively. The catheter was then removed. A few claims representative images from before and after the examination were obtained. The procedure was performed by Gabriel Tai PA-C and supervised by Dr. Agarwal. US/US paracentesis abd w/image IMPRESSION: Ultrasound-guided paracentesis as described above. No immediate complications
[2023-07-05 07:58] VITALS: BMI 27.5
[2023-07-05 10:27] VITALS: BP 112/56; PULSE 89; RESP 16; TEMP 37.2; O2SAT 99
[2023-07-05 10:40] VITALS: BP 110/73; PULSE 93; RESP 16; O2SAT 100
[2023-07-05] MEDS: Lidocaine HCl 1 % MPF 5 ML VIAL SUBCUT (10:41)
[2023-07-05 10:42] VITALS: BP 104/77; PULSE 93; RESP 18; O2SAT 100
[2023-07-05 10:55] VITALS: BP 131/69; PULSE 89; RESP 16; O2SAT 100
[2023-07-05 11:10] VITALS: BP 127/70; PULSE 92; RESP 16; TEMP 37; O2SAT 100
== END 2023-07-05 11:34 | disposition home or self-care (01) ==
PROVIDERS: Physician Assistant Surgical; PCP Internal Medicine; Visit Provider Internal Medicine Gastroenterology
DX: K76.9 Liver disease, unspecified (principal); R18.8 Other ascites; Z94.4 Liver transplant status; K52.9 Noninfective gastroenteritis and colitis, unspecified; I11.0 Hypertensive heart disease with heart failure; I50.9 Heart failure, unspecified; F41.9 Anxiety disorder, unspecified; D64.9 Anemia, unspecified; R25.1 Tremor, unspecified; Z85.3 Personal history of malignant neoplasm of breast; Z91.81 History of falling; Z88.2 Allergy status to sulfonamides; Z88.8 Allergy status to other drugs, medicaments and biological substances
CPT/HCPCS: 49083; P9047

== ENCOUNTER → 2023-07-05 09:32 | Outpatient (BNV) | payer MEDICARE, OTHER, SELFPAY | PROVIDERS: PCP Internal Medicine; Visit Provider Physician Assistant Surgical | DX: R18.8 Other ascites (principal) | CPT/HCPCS: 49083 ==

== ENCOUNTER 2023-07-06 12:21 | Outpatient (REF) | payer MEDICARE, SELFPAY ==
--- NOTE | 2023-07-06 12:42 | PM.EVENT ---
Event Note Date of Service: 07/06/23 Event Note: Patient is 1 day s/p paracentesis who presents with leaking of ascites from her puncture site. Procedure: Right abdomen was prepped steriley. 1% lidocaine administered to puncture site. A single 3-0 figure of eight suture was placed. No further leaking was observed. A dry dressing and tegaderm was applied. Patient will return in 10 days for her next paracentesis, in which her suture will be removed at that time. Gabriel KAPOOR Interventional Radiology Time Spent With Patient Time: Total time managing care of this patient today 15minutes.
== END 2023-07-06 12:22 | disposition home or self-care (01) ==
LOC: HO.RADIR 12:21
PROVIDERS: Visit Provider Physician Assistant Surgical
DX: Z13.89 Encounter for screening for other disorder (principal)
CPT/HCPCS: 92950

== ENCOUNTER 2023-07-11 13:58 | Outpatient (REF) | payer MEDICARE, OTHER, SELFPAY ==
[2023-07-11 08:50] VITALS: PULSE 93; RESP 16; O2SAT 100
--- NOTE | 2023-07-11 15:14 | PFT_ITS ---
Flows: FEV1: 65 % of predicted at 1.2 to L FVC: 69 % of predicted at 1.65 L FEV1/FVC: 74 % Bronchodilator response: Present in small to medium airways only Volumes: Total lung capacity: 66 % of predicted at 2.77 L Residual volume: 65 % of predicted at 1.04 L Slow vital capacity: 67 % of predicted at 1.72 L Expiratory reserve volume: 63 % of predicted at 0.37 L Diffusion capacity: Moderately decreased, adjusts to being mildly decreased after correction for alveolar ventilation. Impression: Moderate restrictive ventilatory defect with bronchodilator response in small to medium airways only. Combination of restrictive ventilatory defect with decreased diffusion capacity suggests underlying pulmonary parenchymal disease. Clinical correlation is advised. MTDD
== END 2023-07-11 13:59 | disposition home or self-care (01) ==
LOC: HO.RESP 13:58
PROVIDERS: PCP Internal Medicine; Visit Provider Nurse Practitioner Family
DX: R05.9 Cough, unspecified (principal)
CPT/HCPCS: 94010; 94640; 94727; 94729

== ENCOUNTER → 2023-07-11 15:14 | Outpatient (BNV) | payer MEDICARE, OTHER, SELFPAY | PROVIDERS: PCP Internal Medicine; Visit Provider Internal Medicine Pulmonary Disease | DX: R05.9 Cough, unspecified (principal) | CPT/HCPCS: 94060; 94727; 94729 ==

== ENCOUNTER 2023-07-17 10:59 | Day surgery (SDC) | payer MEDICARE, OTHER, SELFPAY ==
--- NOTE | ~2023-07-17 | US_ITS ---
History: Ascites Procedure performed: Ultrasound-guided paracentesis Manager Equity: Mario Causey MD FSIR Anesthesia: 8 mL 1% lidocaine Specimen: 5.8 L of clear yellow fluid Drain: 5 Japanese Yueh needle catheter Estimated blood loss: Minimal Consultations: None Procedure in detail: Informed and written consent. Ultrasound revealed diffuse ascites with the largest pocket in the left lower quadrant. The overlying skin was prepped and draped. Under ultrasound, 1% lidocaine was injected subcutaneously and extended to the peritoneum. A small incision was made in the skin with a #11 blade. Through the incision and under ultrasound guidance with permanent recordings and direct visualization of needle entry into the peritoneum, a Yueh needle catheter was advanced into the peritoneum. The needle was removed and the catheter was connected to suction yielding 5.8 L of clear yellow fluid. A sterile dressing was applied after removing the catheter. The patient tolerated the procedure well. Summary: Successful ultrasound-guided paracentesis.
[2023-07-17 12:00] VITALS: BMI 27.0
[2023-07-17 14:20] VITALS: BP 137/80; PULSE 87; RESP 15; TEMP 36.6; O2SAT 99
[2023-07-17] MEDS: Lidocaine HCl 1 % MPF 5 ML VIAL SUBCUT (14:22)
[2023-07-17 14:35] VITALS: BP 153/87; PULSE 85; RESP 16; O2SAT 99
[2023-07-17 14:50] VITALS: BP 145/93; PULSE 89; RESP 15; O2SAT 98
[2023-07-17 15:05] VITALS: BP 155/90; PULSE 88; RESP 14; O2SAT 100
[2023-07-17 15:20] VITALS: BP 136/79; PULSE 90; RESP 18; O2SAT 100
[2023-07-17 15:35] VITALS: BP 149/80; PULSE 88; RESP 15; TEMP 36.4; O2SAT 100
== END 2023-07-17 15:38 | disposition home or self-care (01) ==
PROVIDERS: Physician Assistant Surgical; PCP Internal Medicine; Visit Provider Internal Medicine Gastroenterology
DX: R18.8 Other ascites (principal); K76.9 Liver disease, unspecified
CPT/HCPCS: 49083; P9047

== ENCOUNTER → 2023-07-17 13:21 | Outpatient (BNV) | payer MEDICARE, OTHER, SELFPAY | PROVIDERS: PCP Internal Medicine; Visit Provider Radiology Vascular & Interventional Radiology | DX: R18.8 Other ascites (principal) | CPT/HCPCS: 49083 ==

== ENCOUNTER 2023-07-30 10:28 | Outpatient (AMB) | payer MEDICARE, OTHER, SELFPAY ==
--- NOTE | 2023-07-30 10:29 | MHC.OFFVIS ---
Vital Signs 07/30/23 10:30 Height 4 ft 11 in Weight 133 lb 6.075 oz BMI 26.9 BP 110/64 Blood Pressure Location Lt brachial Position Sitting Pulse 96 Pulse Source Pulse Oximeter Pulse Oximetry (%) 100 Oxygen Delivery Method Room Air Intake Visit Reasons: Pleural effusion Allergies hydromorphone [From Dilaudid] Allergy (Severe, Verified 07/30/23 10:34) Hallucinations losartan Allergy (Intermediate, Verified 07/30/23 10:34) Facial Swelling Sulfa (Sulfonamide Antibiotics) Adverse Reaction (Severe, Verified 07/30/23 10:34) Rash HPI HPI Pleural effusion: Details: Praveena is pleasant 67 year old female, minimal former smoker, with underlying primary biliary cholangitis, cirrhosis s/p liver transplant 2016 on tacrolimus now with failing transplant, HTN, and h/o right breast cancer s/p lumpectomy/radiation 20 yrs ago. She is under the care of [facility] and has been cleared to go back on the liver transplant list. Unfortunately, she has developed significant ascites and more recently pleural effusions. She is maintained on lasix 40 mg qd, previously tried 80 mg but resulted in hypokalemia. Providers at [facility] recommended against spironolactone due to possible hyperkalemia while on tacrolimus. She is under the care of [facility] and undergoes therapeutic paracentesis q 2 weeks and per GI note, she is scheduled for paracentesis tomorrow. 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 Today she presents to review PFT. [facility] Medical History Fracture of fifth metatarsal bone of right foot Shakes Frequent falls Ascites Anemia CHF (congestive heart failure) Pancytopenia Anxiety HTN (hypertension) Tremor Chronic diarrhea Primary biliary cholangitis Breast cancer Surgical History Hx of sigmoidoscopy H/O wrist surgery Transplant recipient Hx of colonoscopy Hx of esophagogastroduodenoscopy H/O: hysterectomy S/P hip replacement Liver transplant recipient Family History Mother CAD (coronary artery disease) Sister Ovarian cancer Mental health disorder Social History Household Members: Spouse Household Members Other:: , children Housing: House Do you presently have visiting nurse or other home services: No Alcohol intake: never Patient Tobacco Use Status: Tobacco use Unknown Tobacco use type: Cigarette e-Cigarette/Vaping Use: Never Used Second Hand Smoke Exposure: No Advance Directives Date on File: 12/15/22 service: No Current occupational status: retired Cognitive needs: No Hearing needs: No Vision needs: Yes Review of Systems Const Denies chills, Denies excessive sweating, Denies fever(s), Denies headache(s) and Denies night sweats Eyes Denies dry eyes, Denies irritation and Denies itchy eyes ENT Reports Normal hearing present, Denies headache(s), Denies nasal congestion, Denies nasal discharge, Denies post nasal drip and Denies sore throat Card Denies chest pain, Denies chest pain at rest, Denies chest pain with activity, Denies claudication, Denies leg edema, Denies dyspnea, Denies dyspnea on exertion, Denies orthopnea and Denies paroxysmal nocturnal dyspnea Resp Denies chest congestion, Denies cough, Denies excessive phlegm production, Denies pain on inspiration, Denies pain with cough, Denies dyspnea, Denies dyspnea on exertion, Denies stridor and Denies wheezing Musc Denies myalgias Neuro Reports Normal hearing present and Denies headache(s) Endo Denies excessive sweating Aller/Immun Denies itchy eyes, Denies seasonal rhinorrhea and Denies wheezing Physical Exam Vital Signs: Last Vital Signs Pulse 96 07/30/23 10:30 BP 110/64 07/30/23 10:30 Pulse Ox 100 07/30/23 10:30 Oxygen Delivery Method Room Air 07/30/23 10:30 BMI result Body Mass Index 26.9 Const General: cooperative, healthy appearing, comfortable, no acute distress, well developed and alert Orientation/consciousness: patient oriented x3 Limitations: no limitations HEENT Head: Yes normal to inspection, Yes normocephalic and Yes atraumatic Ears: hearing grossly normal bilaterally and external ears normal Eyes General: appearance normal, both eyes and all related structures Eyelids: Yes eyelids normal Sclerae: sclerae normal EOM: EOMs intact bilaterally Neck Neck: Yes normal visual inspection and Yes no lymphadenopathy Lymphatic: no lymphadenopathy noted Chest Chest palpation & inspection: normal inspection of the chest Resp Effort & Inspection: normal respiratory effort, able to speak in complete sentences, no audible wheezes, no cough, no stridor, not tachypneic, no tripod positioning and no use of accessory muscles Auscultation: clear to auscultation bilaterally Cardio Jugular venous distension: no JVD Rate: regular rate Rhythm: regular rhythm GI Palpation (GI): Ascites present Skin Other: warm, dry General skin exam: no rashes or lesions noted Neuro General: patient oriented x3 Cranial nerves: Yes Normal hearing present Cognition (Neuro): normal cognition Gait exam (Neuro): Normal gait present Extrem General: Yes normal to inspection, Yes capillary refill normal, Yes no clubbing, cyanosis or edema and Yes no pedal edema Psych Appearance: grossly normal and well kempt Speech and movement: Normal speech and movement present and Clear speech present Affect: normal affect Attitude: cooperative Thought process: Normal thought process present Thought content: Normal thought content present Insight: Good insight present (Psych) Judgement: Good judgement present (Psych) Assessment & Plan Assessment & Plan (1) Pleural effusion: Code(s): J90 - Pleural effusion, not elsewhere classified Category: Medical (2) Dyspnea: Code(s): R06.00 - Dyspnea, unspecified Category: Medical (3) Abdominal ascites: Comment: Due to liver failure, status post liver transplant failure for primary biliary choleangitis Code(s): R18.8 - Other ascites Category: Medical Qualifiers: Ascites type: other type Qualified Code(s): R18.8 - Other ascites Plan Praveena's prior symptoms were likely related to underlying liver failure with hepatic hydrothorax. At this time, she denies any respiratory symptoms and has been relatively active with no symptoms. Reviewed PFT which revealed moderate restrictive ventilatory defect with bronchodilator response in small to medium airways only. Combination of restrictive ventilatory defect with decreased diffusion capacity suggests underlying pulmonary parenchymal disease. She is scheduled for a paracentesis tomorrow, will obtain CXR after procedure to assess for pleural effusions. Will follow up in 3-6 months or sooner if needed. All questions were answered and patient is in agreement of plan. Orders: Orders XR chest 2V Today J90 - Pleural effusion, not elsewhere classified Coding Level of Care Code Est Pt Level 4 (48676) Diagnoses Pleural effusion J90 Dyspnea R06.00 Other ascites R18.8 Ascites type: other type
[2023-07-30 10:30] VITALS: BP 110/64; PULSE 96; O2SAT 100; BMI 26.9
== END 2023-07-30 10:56 | disposition home or self-care (01) ==
PROVIDERS: PCP Internal Medicine; Visit Provider Nurse Practitioner Family
DX: J90 Pleural effusion, not elsewhere classified (principal); R06.00 Dyspnea, unspecified; R18.8 Other ascites
CPT/HCPCS: 99214

== ENCOUNTER → 2023-07-30 10:28 | Outpatient (BNVA) | payer MEDICARE, OTHER, SELFPAY | PROVIDERS: PCP Internal Medicine; Visit Provider Nurse Practitioner Family | DX: J90 Pleural effusion, not elsewhere classified (principal); R06.00 Dyspnea, unspecified; R18.8 Other ascites | CPT/HCPCS: 99212 ==

== ENCOUNTER 2023-07-31 07:56 | Day surgery (SDC) | payer MEDICARE, OTHER, SELFPAY ==
--- NOTE | ~2023-07-31 | US_ITS ---
ULTRASOUND GUIDED PARACENTESIS HISTORY: Ascites. Therapeutic drainage. Risks and benefits and possible complications were discussed with the patient and consent form was signed. A safe pocket of ascitic fluid was identified left lower quadrant using ultrasound guidance, and the overlying skin was marked, prepped and draped in sterile fashion. 1% lidocaine was used as a local anesthetic. Using ultrasound guidance, a 5 fr catheter was placed into the ascitic pocket. 5.0 liters of yellow fluid was removed passively. The catheter was then removed. A few used equipment sales representative images from before and after the examination were obtained. The procedure was performed by Gabriel Tai PA-C and supervised by Dr. Agarwal. US/US paracentesis abd w/image IMPRESSION: Ultrasound-guided paracentesis as described above. No immediate complications
--- NOTE | ~2023-07-31 | XR_ITS ---
EXAMINATION: XR CHEST CLINICAL INFORMATION: Pleural effusion, not elsewhere classified Postop COMPARISON: Chest 05/17/2023 TECHNIQUE: 2 views of the chest were obtained. 10:56 AM FINDINGS: There is blunting of the right costophrenic angle. The left posterior sulcus appears sharp on the lateral view. Mild bibasilar linear density consistent with atelectasis and/or pneumonia. The cardiomediastinal silhouette is within normal limits. No acute bony abnormality. XR/XR chest 2V IMPRESSION: 1. Small right pleural effusion. No left pleural effusion. 2. Mild bibasilar atelectasis and/or pneumonia.
[2023-07-31 08:46] VITALS: BP 138/85; PULSE 82; RESP 16; TEMP 36.5; O2SAT 98; BMI 26.9
[2023-07-31] MEDS: Lidocaine HCl 1 % MPF 5 ML VIAL SUBCUT (10:16)
[2023-07-31 10:20] VITALS: BP 137/58; PULSE 83; RESP 16; TEMP 36.6; O2SAT 99
[2023-07-31 10:35] VITALS: BP 135/82; PULSE 89; RESP 15; TEMP 36.4; O2SAT 100
== END 2023-07-31 10:50 | disposition home or self-care (01) ==
PROVIDERS: Physician Assistant Surgical; PCP Internal Medicine; Visit Provider Internal Medicine Gastroenterology
DX: K76.9 Liver disease, unspecified (principal); R18.8 Other ascites; J90 Pleural effusion, not elsewhere classified; I11.0 Hypertensive heart disease with heart failure; I50.9 Heart failure, unspecified; Z88.8 Allergy status to other drugs, medicaments and biological substances; Z88.2 Allergy status to sulfonamides
CPT/HCPCS: 49083; 71046

== ENCOUNTER → 2023-07-31 09:30 | Outpatient (BNV) | payer MEDICARE, OTHER, SELFPAY | PROVIDERS: PCP Internal Medicine; Visit Provider Physician Assistant Surgical | DX: R18.8 Other ascites (principal) | CPT/HCPCS: 49083 ==

== ENCOUNTER 2023-08-10 10:26 | Outpatient (REF) | payer MEDICARE, OTHER, SELFPAY | END 2023-08-10 10:27 | disposition home or self-care (01) | LOC: HO.SH 10:26 | PROVIDERS: Visit Provider Internal Medicine | DX: Z01.118 Encounter for examination of ears and hearing with other abnormal findings (principal); H90.3 Sensorineural hearing loss, bilateral | CPT/HCPCS: 92557; 92567 ==

== ENCOUNTER 2023-08-14 07:57 | Day surgery (SDC) | payer MEDICARE, OTHER, SELFPAY ==
--- NOTE | ~2023-08-14 | US_ITS ---
ULTRASOUND GUIDED PARACENTESIS HISTORY: Ascites. Therapeutic drainage. Risks and benefits and possible complications were discussed with the patient and consent form was signed. A safe pocket of ascitic fluid was identified right lower quadrant using ultrasound guidance, and the overlying skin was marked, prepped and draped in sterile fashion. 1% lidocaine was used as a local anesthetic. Using ultrasound guidance, a 5 fr catheter was placed into the ascitic pocket. 4.9 liters of yellow fluid was removed passively. The catheter was then removed. A few appeals representative images from before and after the examination were obtained. The procedure was performed by Gabriel Tai PA-C and supervised by Dr. Agarwal. US/US paracentesis abd w/image IMPRESSION: Ultrasound-guided paracentesis as described above. No immediate complications
[2023-08-14 08:29] VITALS: BP 134/82; PULSE 90; RESP 16; TEMP 37.4; O2SAT 98
[2023-08-14 10:05] VITALS: BP 146/83; PULSE 88; TEMP 36.4; O2SAT 100
[2023-08-14] MEDS: Lidocaine HCl 1 % MPF 5 ML VIAL SUBCUT (10:14)
[2023-08-14 10:20] VITALS: BP 144/80; PULSE 86; RESP 17; O2SAT 100
[2023-08-14 10:40] VITALS: BP 142/82; PULSE 82; RESP 18; TEMP 36.3; O2SAT 100
== END 2023-08-14 10:46 | disposition home or self-care (01) ==
LOC: HO.SSS 07:58
PROVIDERS: Physician Assistant Surgical; PCP Internal Medicine; Visit Provider Internal Medicine Gastroenterology
DX: K76.9 Liver disease, unspecified (principal); R18.8 Other ascites; Z94.4 Liver transplant status; I11.0 Hypertensive heart disease with heart failure; I50.9 Heart failure, unspecified; D64.9 Anemia, unspecified; R25.1 Tremor, unspecified; Z79.899 Other long term (current) drug therapy; Z88.2 Allergy status to sulfonamides; Z88.5 Allergy status to narcotic agent; Z88.8 Allergy status to other drugs, medicaments and biological substances
CPT/HCPCS: 49083

== ENCOUNTER → 2023-08-14 09:30 | Outpatient (BNV) | payer MEDICARE, OTHER, SELFPAY | PROVIDERS: PCP Internal Medicine; Visit Provider Physician Assistant Surgical | DX: R18.8 Other ascites (principal) | CPT/HCPCS: 49083 ==

== ENCOUNTER 2023-08-15 10:49 | Outpatient (REF) | payer MEDICARE, OTHER, SELFPAY ==
--- NOTE | 2023-08-15 13:24 | PM.EVENT ---
Event Note Date of Service: 08/15/23 Event Note: Patient presents 24 hours after her paracentesis with leaking of ascites. A 3-0 figure of eight suture was placed at the leaking right abdomen puncture site. No further leaking of ascites was observed. Dry dressing applied. Will remove suture at her next scheduled paracentesis appointment. Gabriel KAPOOR Interventional Radiology Time Spent With Patient Time: Total time managing care of this patient today ____ minutes.
== END 2023-08-15 10:50 | disposition home or self-care (01) ==
LOC: HO.RADIR 10:49
PROVIDERS: Visit Provider Physician Assistant Surgical
DX: Z13.89 Encounter for screening for other disorder (principal)

== ENCOUNTER 2023-08-28 07:58 | Day surgery (SDC) | payer MEDICARE, OTHER, SELFPAY ==
--- NOTE | ~2023-08-28 | US_ITS ---
Ultrasound paracentesis History: Ascites. Risks and benefits and possible complications were discussed with the patient and consent form was signed. A safe pocket of ascitic fluid was identified using ultrasound guidance, and the overlying skin was marked. The abdomen prepped and draped in sterile fashion. 1% lidocaine was used as a local anesthetic. Using ultrasound guidance, a 5 fr catheter was placed into the ascitic pocket. 5.0 liters of yellow fluid was removed passively. The catheter was then removed. A 3-0 nylon suture was placed. A few statement services representative images from before and after the examination were obtained. The procedure was performed by Gabriel Tai PA-C and supervised by Dr. Polk. US/US paracentesis abd w/image Impression: Ultrasound-guided paracentesis as described above. No immediate complications
[2023-08-28 08:28] VITALS: BP 135/91; PULSE 99; RESP 16; TEMP 36.3; O2SAT 98
[2023-08-28 08:32] VITALS: BMI 26.3
[2023-08-28 10:39] VITALS: BP 140/73; PULSE 89; RESP 16; TEMP 36.1; O2SAT 99
[2023-08-28] MEDS: Lidocaine HCl 1 % MPF 5 ML VIAL SUBCUT (10:42)
[2023-08-28 10:54] VITALS: BP 136/84; PULSE 86; RESP 16; O2SAT 99
[2023-08-28 11:09] VITALS: BP 144/83; PULSE 86; RESP 16; TEMP 36.1; O2SAT 99
== END 2023-08-28 11:41 | disposition home or self-care (01) ==
PROVIDERS: Physician Assistant Surgical; PCP Internal Medicine; Visit Provider Internal Medicine Gastroenterology
DX: R18.8 Other ascites (principal); K76.9 Liver disease, unspecified; I10 Essential (primary) hypertension
CPT/HCPCS: 49083

== ENCOUNTER → 2023-08-28 09:30 | Outpatient (BNV) | payer MEDICARE, OTHER, SELFPAY | PROVIDERS: PCP Internal Medicine; Visit Provider Physician Assistant Surgical | DX: R18.8 Other ascites (principal) | CPT/HCPCS: 49083 ==

== ENCOUNTER 2023-08-30 08:52 | Day surgery (SDC) | payer MEDICARE, OTHER, SELFPAY ==
--- NOTE | 2023-08-29 08:39 | P.CONAN_ITS ---
Documented by User: Shyann Griffin NP 08/29/23 08:52 HPI - Anesthesia Eval Consult details Narrative: 67yo F for Upper Endoscopy Ascites with para [id number]. Last para 08/28/23 with 5L removed s/p thoracentesis 04/2023 with 7L removed. Per 07/2023 pulmo note, symptoms improved. F/u CXR 07/2023 shows only small right pleural effusion Biliary cholangitis, decomp cirrhosis, previous liver transplant 2015 [facility] Active Problems Active Problems: All Active Problems Cough (Acute) Dyspnea (Acute) Osteoporosis (Acute) Chronic cough (Acute) Hearing loss (Acute) Pneumonia (Acute) Fracture of fourth metatarsal bone of right foot (Acute) Encephalomalacia on imaging study (Acute) Abdominal ascites (Acute) Postmenopausal (Acute) Vitamin B6 deficiency (Acute) Annual physical exam (Acute) Contusion of left elbow (Acute) Malnutrition (Acute) Crohn's colitis (Acute) Thrombocytopenia (Chronic) Swollen breast (Acute) Diarrhea (Acute) Ascites (Acute) Pleural effusion (Acute) Pneumonia (Acute) Neck pain (Acute) Allergic reaction caused by a drug (Acute) Acute respiratory failure with hypoxia (Acute) Aspiration pneumonitis (Acute) Primary biliary cholangitis (Acute) Past Medical History Medical History Fracture of fifth metatarsal bone of right foot Shakes Frequent falls Ascites Anemia CHF (congestive heart failure) Pancytopenia Anxiety HTN (hypertension) Tremor Chronic diarrhea Primary biliary cholangitis Breast cancer Family History Family History Mother CAD (coronary artery disease) Sister Ovarian cancer Mental health disorder Family history of problems with anesthesia: No Surgical History Surgical History Hx of sigmoidoscopy H/O wrist surgery Transplant recipient Hx of colonoscopy Hx of esophagogastroduodenoscopy H/O: hysterectomy S/P hip replacement Liver transplant recipient History of Problems with Anesthesia: No Social History Social History Household Members: Spouse Household Members Other:: , children Housing: House Do you presently have visiting nurse or other home services: No Alcohol intake: never Patient Tobacco Use Status: Tobacco use Unknown Tobacco use type: Cigarette e-Cigarette/Vaping Use: Never Used Second Hand Smoke Exposure: No Advance Directives Date on File: 12/15/22 service: No Current occupational status: retired Cognitive needs: No Hearing needs: No Vision needs: Yes Meds Allergies Allergy/AdvReac Type Severity Reaction Status Date / Time hydromorphone [From Dilaudid] Allergy Severe Hallucinati Verified 08/28/23 08:31 ons losartan Allergy Intermediate Facial Verified 08/28/23 08:31 Swelling Sulfa (Sulfonamide AdvReac Severe Rash Verified 08/28/23 08:31 Antibiotics) Home Medications ?Medication ?Instructions ?Recorded ?Confirmed ?Last Taken ?Type cholecalciferol (vitamin D3) 25 25 mcg PO DAILY 04/25/22 06/18/23 02/27/23 History mcg (1,000 unit) capsule (Vitamin D3) tacrolimus 0.5 mg capsule, 0.5 mg PO Q12H 08/22/22 06/18/23 02/27/23 History immediate-release alprazolam 1 mg tablet 1 mg PO DAILY PRN Anxiety 09/04/22 06/18/23 02/27/23 History bupropion HCl 300 mg 24 hr tablet, 300 mg PO DAILY 02/28/23 06/18/23 02/27/23 History extended release guaifenesin 100 mg/5 mL oral liquid 200 mg PO Q4H PRN Cough 03/08/23 06/18/23 Unknown History zinc acetate 50 mg (zinc) capsule 50 mg PO DAILY 03/08/23 06/18/23 Unknown History (Galzin) aspirin 81 mg tablet,delayed 81 mg PO DAILY 06/13/23 06/18/23 Unknown History release Exam Pertinent Lab Results Pertinent Lab Results: Laboratory Tests 06/07/23 06/29/23 07:51 09:26 WBC 5.1 Hgb 10.7 L Hct 34.0 L Plt Count 164 Sodium 139 Potassium 3.1 L Chloride 109 H Carbon Dioxide 22 BUN 10 Creatinine 0.78 Laboratory Tests 06/29/23 09:26 PT 16.5 H INR 1.4 H Laboratory Tests 06/29/23 09:26 Total Bilirubin 1.3 H Direct Bilirubin 0.9 H AST 40 H ALT 35 H Alkaline Phosphatase 211 H Total Protein 6.1 L Albumin 2.7 L Narrative Narrative: ECHO 2022 Conclusions: - Normal left ventricular size and systolic function. There is mildly increased left ventricular wall thickness. The visually estimated ejection fraction is between 60-65%. - Normal right ventricular cavity size and systolic function. - Both atria are normal in size. - There is mild dilatation of the ascending aorta measuring 3.40 cm. Assessment and Plan Assessment Anesthesia Assessment: Chart Reviewed Final Anesthetic Review Family History of Problems with Anesthesia: No History of Problems with Anesthesia: No Documented by User: Stefani Dickerson MD 08/30/23 11:27 [facility] Past Medical History Medical History Fracture of fifth metatarsal bone of right foot Shakes Frequent falls Ascites Anemia CHF (congestive heart failure) Pancytopenia Anxiety HTN (hypertension) Tremor Chronic diarrhea Primary biliary cholangitis Breast cancer Family History Family History Mother CAD (coronary artery disease) Sister Ovarian cancer Mental health disorder Family history of problems with anesthesia: No Surgical History Surgical History Hx of sigmoidoscopy H/O wrist surgery Transplant recipient Hx of colonoscopy Hx of esophagogastroduodenoscopy H/O: hysterectomy S/P hip replacement Liver transplant recipient History of Problems with Anesthesia: No Social History Social History Household Members: Spouse Household Members Other:: , children Housing: House Do you presently have visiting nurse or other home services: No Alcohol intake: never Patient Tobacco Use Status: Tobacco use Unknown Tobacco use type: Cigarette e-Cigarette/Vaping Use: Never Used Second Hand Smoke Exposure: No Advance Directives Date on File: 12/15/22 service: No Current occupational status: retired Cognitive needs: No Hearing needs: No Vision needs: Yes Meds Allergies Allergy/AdvReac Type Severity Reaction Status Date / Time hydromorphone [From Dilaudid] Allergy Severe Hallucinati Verified 08/28/23 08:31 ons losartan Allergy Intermediate Facial Verified 08/28/23 08:31 Swelling Sulfa (Sulfonamide AdvReac Severe Rash Verified 08/28/23 08:31 Antibiotics) Home Medications ?Medication ?Instructions ?Recorded ?Confirmed ?Last Taken ?Type cholecalciferol (vitamin D3) 25 25 mcg PO DAILY 04/25/22 06/18/23 02/27/23 History mcg (1,000 unit) capsule (Vitamin D3) tacrolimus 0.5 mg capsule, 0.5 mg PO Q12H 08/22/22 06/18/23 02/27/23 History immediate-release alprazolam 1 mg tablet 1 mg PO DAILY PRN Anxiety 09/04/22 06/18/23 02/27/23 History bupropion HCl 300 mg 24 hr tablet, 300 mg PO DAILY 02/28/23 06/18/23 02/27/23 History extended release guaifenesin 100 mg/5 mL oral liquid 200 mg PO Q4H PRN Cough 03/08/23 06/18/23 Unknown History zinc acetate 50 mg (zinc) capsule 50 mg PO DAILY 03/08/23 06/18/23 Unknown History (Galzin) aspirin 81 mg tablet,delayed 81 mg PO DAILY 06/13/23 06/18/23 Unknown History release Exam Height,Weight and Vital Signs: Height 4 ft 11 in Weight 58.967 kg Vital Signs Temp Pulse Resp BP Pulse Ox O2 Del Method 08/30/23 09:37 98.7 F 83 16 143/83 H 100 Room Air Pertinent Lab Results Pertinent Lab Results: Laboratory Tests 06/07/23 06/29/23 07:51 09:26 WBC 5.1 Hgb 10.7 L Hct 34.0 L Plt Count 164 Sodium 139 Potassium 3.1 L Chloride 109 H Carbon Dioxide 22 BUN 10 Creatinine 0.78 Laboratory Tests 06/29/23 09:26 PT 16.5 H INR 1.4 H Laboratory Tests 06/29/23 09:26 Total Bilirubin 1.3 H Direct Bilirubin 0.9 H AST 40 H ALT 35 H Alkaline Phosphatase 211 H Total Protein 6.1 L Albumin 2.7 L Lab Results 08/30/23 Range/Units 09:44 WBC 3.9 L (4.8-10.8) X10*3/uL RBC 3.63 L (4.20-5.50) X10*6/uL Hgb 10.7 L (12.0-16.0) g/dl Hct 33.5 L (37.0-47.0) % MCV 92.3 (80.0-98.0) fL MCH 29.5 (27.0-33.0) pg MCHC 31.9 (31.0-35.0) g/dl RDW 16.0 (11.0-16.0) % Plt Count 132 L (160-400) X10*3/uL MPV 10.0 (9.4-12.3) fL Absolute Nucleated RBC 0.000 (0.0-0.012) X10*3/uL Nucleated RBC % (auto) 0.0 (0.0-0.2) /100WBC PT 15.0 H (11.1-13.3) SEC INR 1.2 H (0.9-1.1) Sodium 141 (135-145) mmol/L Potassium 3.7 (3.3-5.1) mmol/L Chloride 112 H (96-108) mmol/L Carbon Dioxide 21 L (22-29) mmol/L Anion Gap 12 (12-20) BUN 11 (9-16) mg/dL Creatinine 0.72 (0.5-1.4) mg/dL Estim Creat Clear Calc 58.4 Estimated GFR > 60 Fasting Glucose 92 (60-99) mg/dL Calcium 7.7 L (8.4-10.2) mg/dL Total Bilirubin 1.2 H (0.0-1.0) mg/dL AST 41 H (5-31) U/L ALT 36 H (0-31) U/L Alkaline Phosphatase 222 H (39-117) U/L Total Protein 6.2 L (6.5-8.0) g/dL Albumin 2.7 L (3.5-5.0) g/dL Airway Mallampati Class: III TM Dist: >3cm Neck ROM: Limited (Neck stiff) Loose/Missing/Broken Teeth: No Heart: RRR Lungs: CTAB Assessment and Plan Assessment Anesthesia Assessment: Anesthesia Plan Discussed and Chart Reviewed Final Anesthetic Review Family History of Problems with Anesthesia: No History of Problems with Anesthesia: No NPO: Yes ASA Class: IV Final Preanesthetic Review: No Changes in Pt Med Stat, Meds/Allgs Chart Reviewed, Consent Obtained/Reviewed and Anes Risks/Benef Reviewed Patient Risk: Intermediate Procedure Risk: Intermediate Assessment/Block/Sedation in SS: Assess/Block/Sedation-SS Anesthetic Plan Anesthetic Plan: TIVA Disposition: Standard PACU
[2023-08-30 09:35] VITALS: BMI 26.3
[2023-08-30 09:37] VITALS: BP 143/83; PULSE 83; RESP 16; TEMP 37.1; O2SAT 100
--- NOTE | 2023-08-30 09:47 | P.HPSUR_ITS ---
Pre-Procedural Eval Section A - 24 Hr Update-Section A only Date of Service: 08/30/23 Section B - Complete if H&P > 30 days Chief Complaint: Esophageal varices without bleeding Relevant Family History (Specify if Yes): No Relevant Social History: None Present Medications: see Short Stay Collaborative assessment Medical History: Significant History (Fracture of fifth metatarsal bone of right foot Shakes Frequent falls Ascites Anemia CHF (congestive heart failure) Pancytopenia Anxiety HTN (hypertension) Tremor Chronic diarrhea Primary biliary cholangitis Breast cancer) History of Previous Operations: Relevant previous surgery/procedure and date(s) (Hx of sigmoidoscopy H/O wrist surgery Transplant recipient Hx of colonoscopy Hx of esophagogastroduodenoscopy H/O: hysterectomy S/P hip replacement Liver transplant recipient) Allergies: Allergies Allergy/AdvReac Type Severity Reaction Status Date / Time hydromorphone [From Dilaudid] Allergy Severe Hallucinati Verified 08/28/23 08:31 ons losartan Allergy Intermediate Facial Verified 08/28/23 08:31 Swelling Sulfa (Sulfonamide AdvReac Severe Rash Verified 08/28/23 08:31 Antibiotics) Review of Systems Sugical H&P ROS: Negative: Constitution, Cardiovascular, Respiratory, Neurologic al, Psychiatric, Hem-Onc, Allergic/Immunologic, Gastrointestinal, Genitourinary, Musculoskeletal, Integumentary, Endocrine and Eyes/Ears/Nose/Throat Exam Surgical H&P Exam: Normal: HEENT, Normal: Heart, Normal: Lungs, Normal: Extremities, Normal: Abdomen, Normal: Skin and Normal: Neurological Plan Diagnosis/Plan: Unchanged I have reviewed the history and physical and performed a pertinent physical examination on my patient. No changes have occurred unless specified. Time Spent With Patient Time: Total time managing care of this patient today ____ minutes.
[2023-08-30 09:50] LABS: Hematocrit 33.5 % (37.0-47.0); Hemoglobin 10.7 g/dl (12.0-16.0); Mean Corpuscular HGB Conc 31.9 g/dl (31.0-35.0); Mean Corpuscular Hemoglobin 29.5 pg (27.0-33.0); Mean Corpuscular Volume 92.3 fL (80.0-98.0); Platelet Count 132 X10*3/uL (160-400); Red Blood Count 3.63 X10*6/uL (4.20-5.50); White Blood Count 3.9 X10*3/uL (4.8-10.8)
[2023-08-30 09:56] LABS: INTERNATIONAL NORM RATIO 1.2 (0.9-1.1)
[2023-08-30] MEDS: Lactated Ringers 1,000 ML 50 ML IVCONT (10:04)
[2023-08-30 10:22] LABS: Alanine Aminotransferase 36 U/L (0-31); Albumin Level 2.7 g/dL (3.5-5.0); Alkaline Phosphatase 222 U/L (39-117); Anion Gap 12 (12-20); Aspartate Amino Transferase 41 U/L (5-31); Bilirubin Total 1.2 mg/dL (0.0-1.0); Blood Urea Nitrogen 11 mg/dL (9-16); Calcium 7.7 mg/dL (8.4-10.2); Carbon Dioxide 21 mmol/L (22-29); Chloride 112 mmol/L (96-108); Creatinine Clr Calc Pharmacy 58.4; Estimated Glomerular Filt Rate > 60; Glucose Fasting 92 mg/dL (60-99); Potassium 3.7 mmol/L (3.3-5.1); Sodium 141 mmol/L (135-145); Total Protein 6.2 g/dL (6.5-8.0)
--- NOTE | 2023-08-30 10:46 | W.PM.OPN ---
Operative Note Operative Note Date of Service: 08/30/23 Narrative: Procedure Description: EGD Indication: variceal screening Anesthesia: MAC FLEXIBLE TRANSORAL UPPER GASTROINTESTINAL ENDOSCOPY UPPER ENDOSCOPY Consent: Indications for the procedure and potential complications of bleeding, perforation, reaction to medications and missed diagnosis were discussed with the patient and informed consent was obtained. Instrument: Olympus GIF H 190 J mid size upper endoscope Monitoring: Vital signs and clinical assessment, continuous EKG monitoring, Pulse oximetry, Carbon Dioxide monitoring and blood pressure monitoring were done throughout the procedure. Procedure: The patient was placed in the left lateral decubitis position and pre-procedure medications were administered and a bite block was placed. The endoscope was inserted into the mouth and advanced under direct vision to the third part of duodenum. A careful inspection was made as the upper endoscope was withdrawn including a retroflexed examination of the proximal stomach; Findings and interventions are described below. Findings: Larynx:normal Esophagus: GE junction at 35 cm, diaphragm hiatus at 35 cm, one cord grade II varix and x 2 cords of grade I varices, x 2 bands applied with good collapse Stomach: mosaic pattern consistent with portal hypertensive gastropathy. Grade 2 flap valve on retroflexed examination of the cardia. Duodenum: Normal bulb and descending duodenum, Intervention: Variceal banding Impression/Findings: portal hypertensive gastropathy esophageal varices PLAN: soft diet today and advance tomorrow GERD precautions
[2023-08-30 11:05] VITALS: BP 100/71; PULSE 89; RESP 19; TEMP 36.5; O2SAT 96
[2023-08-30 11:20] VITALS: BP 129/78; PULSE 94; RESP 19; O2SAT 98
[2023-08-30 11:35] VITALS: BP 117/76; PULSE 86; RESP 16; O2SAT 99
[2023-08-30 11:50] VITALS: BP 135/84; PULSE 85; RESP 16; TEMP 36.5; O2SAT 100
== END 2023-08-30 12:15 | disposition home or self-care (01) ==
PROVIDERS: Nurse Practitioner; PCP Internal Medicine; Visit Provider Internal Medicine Gastroenterology
PROC: 0DJ08ZZ Inspection of Upper Intestinal Tract, Via Natural or Artificial Opening Endoscopic (ICD-10-PCS; CPT 43235; principal; 2023-08-30 10:50)
DX: I85.00 Esophageal varices without bleeding (principal); K76.6 Portal hypertension; K31.89 Other diseases of stomach and duodenum; I10 Essential (primary) hypertension; Z88.5 Allergy status to narcotic agent; Z88.8 Allergy status to other drugs, medicaments and biological substances
CPT/HCPCS: 43244; 36415; 80053; 85027; 85610; J2704

== ENCOUNTER → 2023-08-30 08:52 | Outpatient (BNV) | payer MEDICARE, OTHER, SELFPAY | PROVIDERS: PCP Internal Medicine; Visit Provider Internal Medicine Gastroenterology | DX: I85.00 Esophageal varices without bleeding (principal); K31.89 Other diseases of stomach and duodenum | CPT/HCPCS: 43244 ==

== ENCOUNTER 2023-09-06 08:57 | Outpatient (REF) | payer MEDICARE, OTHER, SELFPAY ==
[2023-09-06 09:49] LABS: INTERNATIONAL NORM RATIO 1.2 (0.9-1.1); Prothrombin Time 14.9 SEC (11.1-13.3)
[2023-09-06 10:21] LABS: Alanine Aminotransferase 30 U/L (0-31); Albumin Level 2.9 g/dL (3.5-5.0); Alkaline Phosphatase 217 U/L (39-117); Anion Gap 9 (12-20); Aspartate Amino Transferase 38 U/L (5-31); Bilirubin Direct 0.7 mg/dL (0.0-0.5); Bilirubin Total 1.2 mg/dL (0.0-1.0); Blood Urea Nitrogen 14 mg/dL (9-16); Calcium 8.4 mg/dL (8.4-10.2); Carbon Dioxide 27 mmol/L (22-29); Chloride 108 mmol/L (96-108); Estimated Glomerular Filt Rate > 60; Glucose Random 85 mg/dL (60-115); Potassium 3.3 mmol/L (3.3-5.1); Sodium 141 mmol/L (135-145); Total Protein 6.6 g/dL (6.5-8.0)
== END 2023-09-06 08:58 | disposition home or self-care (01) ==
LOC: HO.LAB 08:57
PROVIDERS: Visit Provider Internal Medicine Gastroenterology
DX: R94.5 Abnormal results of liver function studies (principal)
CPT/HCPCS: 36415; 80048; 80076; 85610

== ENCOUNTER 2023-09-11 12:50 | Day surgery (SDC) | payer MEDICARE, OTHER, SELFPAY ==
[2023-09-11] VITALS (7 sets, daily range): BP systolic 109–128; BP diastolic 60–72; PULSE 83–93; RESP 16–18; TEMP 37–37.6; O2SAT 99–100; BMI 27.3
--- NOTE | ~2023-09-11 | US_ITS ---
Ultrasound paracentesis History: Ascites. Risks and benefits and possible complications were discussed with the patient and consent form was signed. A safe pocket of ascitic fluid was identified using ultrasound guidance, and the overlying skin was marked. The abdomen prepped and draped in sterile fashion. 1% lidocaine was used as a local anesthetic. Using ultrasound guidance, a 5 fr catheter was placed into the ascitic pocket. 6.6 liters of yellow fluid was removed passively. The catheter was then removed. A few quality control representative images from before and after the examination were obtained. The procedure was performed by Gabriel Tai PA-C and supervised by Dr. Champion. US/US paracentesis abd w/image Impression: Ultrasound-guided paracentesis as described above. No immediate complications
--- OUTSIDE RECORDS SUMMARY | 2023-09-11 12:52 | XMS_ITS | Continuity of Care Document ---
Author Organization [facility] Address [address] [place] [address]- Care Team Providers Care Dry Wall Installer Name Role Phone Taylor Zapata MD Primary Care Physician Encounter 04/17/23 - 04/24/23 [facility] [address], [address] [place] [address]- Attending Physician: Jacquie Rodgers Admitting Physician: Jacquie [...] tetanus/diphtheria/pertussis, acel(Tdap) 06/02/11 Recorded 1Result Comment: [facility] [id number] Medications Alprazolam By Mouth, Refills 0, Maintenance, [...] Exam Date Time Procedure Performing Provider Status 04/17/23 11:36 AM MM Digital Mammo Bilateral Stan Sanders; Modified Notes: (MM Digital Mammo Bilateral) Reason For Exam: 6 month follow up on the left/right breast screening ADDENDUM: MM Digital Mammo Bilateral The patient's ordering clinician should be changed to Shyann Samuel Nurse Practitioner. WSN: [id number] Ordering Physician: Jacquie Davis Dictated By: Malvin Felipe MD Dictated Date/Time: 04/17/23 4:02 pm Reviewed By: Malvin Felipe MD Signed By: Malvin Felipe MD Signed Date/Time: 04/17/23 4:02 pm Transcribed By: GUERA Executive Director Of Marketing Date/Time: 04/17/23 4:02 pm Birads: RESULT: MM Digital Mammo Bilateral PROCEDURE: MM Digital Mammo Bilateral INDICATION: Screening examination right breast. 6 month follow-up left breast. History of right breast lumpectomy 2000. There are failure awaiting possible transplant. Biopsy right breast for skin thickening with benign results. TECHNIQUE: Routine images of each breast with 3-D tomography and computer-aided detection. Spot magnification views of each breast. FINDINGS: The breast tissue is heterogeneously dense, which may obscure masses. RIGHT BREAST: Stable posttreatment changes. There is generalized skin thickening. It is worse than on the prior examination. There is no worrisome mass. There is no new area of architectural distortion. On the right MLO view is a small new grouping of microcalcifications present near the nipple line 8.5 cm from the nipple. There cannot be identified on CC view. On magnification lateral view they do not represent a worrisome grouping. LEFT BREAST: There is no architectural distortion. There is no worrisome mass. There is generalized skin thickening the breast worse than on the prior exam. Microcalcifications laterally and superiorly in the left breast has shown little interval change since prior exam. They are of indeterminate morphology. There is an additional small grouping of increasing microcalcifications in the left breast. On the cc view it is located slightly lateral to the nipple line 7.5 cm from the nipple. On the lateral view it is located near the level of the nipple. It is of indeterminate morphology. IMPRESSION: RIGHT BREAST: 1. Stable post treatment changes. 2. No new worrisome abnormality. 3. There is some generalized worsening in skin thickening which may be related to patient's underlying liver disease. I note that the patient has had a punch biopsy of the skin for assessment of the skin thickening with benign result 04/30/2022. 4. No further evaluation the right breast is indicated other than routine screening. LEFT BREAST: 1. There is some generalized skin thickening left breast which is worse than on the prior examination. It is most likely related to the patient's liver disease, as noted previously. 2. There are 2 different groupings of microcalcifications in left breast which are of indeterminatemorphology. Further evaluation is recommended by stereotactic guided biopsy of both of both of these. 3. The results and recommendations were discussed with the patient at the conclusion of the exam. RECOMMENDATION: Stereotactic biopsy left breast BI-RADS: 4 (Suspicious) Lay letter mailed to patient WSN: [id number] Ordering Physician: Jacquie Davis Dictated By: Malvin Felipe MD Dictated Date/Time: 04/17/23 12:23 pm Reviewed By: Malvin Felipe MD Signed By: Malvin Felipe MD Signed Date/Time: 04/17/23 12:23 pm Transcribed By: GUERA Executive Director Of Marketing Date/Time: 04/17/23 12:00 pm Birads: Social History Social History Type Response Smoking Status Former smoker entered on: 12/02/14 Sex Patient Care team information Care Team Personnel Name: Praveena Ladd RN Position: [facility] RN Member Role: Primary Care Nurse Name: Lyric Adames RN Position: [facility] SN RN Member Role: Primary Care Nurse Name: Taylor Zapata MD Position: [facility] Physician - Primary Care Member Role: PCP Address: Address: [address] [place], [place] [address] Name: Lesvia Louie RN Position: [facility] OB RN Member Role: Primary Care Nurse Care Team Related Persons Name: QUINTON KELLEY Address: home [address] [id number] Name: SALINA KELLEY Address: home [address] [id number]
--- OUTSIDE RECORDS SUMMARY | 2023-09-11 12:52 | XMS_ITS | Continuity of Care Document ---
Author Organization [facility] Address [address] [place] [address]- Care Team Providers Care Shells Inspector Name Role Phone Taylor Zapata MD Primary Care Physician [phone] Encounter [facility] Date(s): 04/19/23 - 04/26/23 [facility] [address] [place] [address]- Attending Physician: Shyann Samuel NP Referring Physician: Taylor Zapata MD Allergies, Adverse Reactions, Alerts Substance Reaction [...] 06/02/11 Recorded 1Result Comment: [facility] [id number] Medications Alprazolam By Mouth, Refills 0, Maintenance, [...] Confirmed Active Major depression, recurrent Confirmed Active Vital Signs Most recent to oldest [Reference Range]: 1 Height 152 cm (04/19/23 11:07 AM) Weight 69.2 kg (04/19/23 11:07 AM) Oxygen Saturation [94-100 %] 97 % (04/19/23 11:07 AM) Pulse Rate [55-90 bpm] 93 bpm *H* (04/19/23 11:07 AM) Body Mass Index [18.5-24.99 kg/m2] 29.95 kg/m2 *H* (04/19/23 11:07 AM) Blood Pressure [90-138/55-84 mm Hg] 135/ 92mm Hg (04/19/23 11:07 AM) Temperature [96.8-100.4 DegF] 97.7 DegF (04/19/23 11:07 AM) Mode of Delivery (Oxygen) Room air (04/19/23 11:07 AM) Blood pressure sites Arm, left (04/19/23 11:07 AM) Temperature Route Temporal (04/19/23 11:07 AM) Dry Weight 69.2 kg (04/19/23 11:07 AM) Weight Obtained Via Standing scale (04/19/23 11:07 AM) Social History Social History Type Response Smoking Status Former smoker entered on: 12/02/14 Sex Patient Care team information Care Team Personnel Name: Praveena Ladd RN Position: S RN Member Role: Primary Care Nurse Name: Lyric Adames RN Position: [facility] SN RN Member Role: Primary Care Nurse Name: Taylor Zapata MD Position: [facility] Physician - Primary Care Member Role: PCP Address: Address: [address] [place], [place] [address] Name: Lesvia Louie RN Position: [facility] OB RN Member Role: Primary Care Nurse Care Team Related Persons Name: QUINTON KELLEY Address: [address] [place] [address] Name: SALINA KELLEY Address: [address] [place] [address]
--- OUTSIDE RECORDS SUMMARY | 2023-09-11 12:53 | XMS_ITS | Continuity of Care Document ---
Author Organization [facility] ter Address [address] [place] [address]- Care Team Providers Care Residential Builder Name Role Phone Taylor Zapata MD Primary Care Physician Encounter [facility] Date(s): 04/17/23 - 06/15/[address] [address] Attending Physician: Jimmie BORDEN, Shyann Admitting Physician: Jimmie BORDEN, Shyann Referring Physician: Not on Staff, Referring MD [...] Melvin rded influenza virus vaccine, inactivated 02/28/11 Mlevin rded influenza virus vaccine, inactivated 01/13/10 Melvin rded Zoster Vaccine Live 06/03/15 Recorded pneumococcal 23-valent vaccine 03/12/15 Given Flu Vaccine 12/14/13 Recorded tetanus/diphtheria/pertussis, acel(Tdap) 06/02/11 Recorded 1Result Comment: [facility][NOTE 2] 82322-350-87 Medications Alprazolam By Mouth, Refills 0, Maintenance, [...] Daily, # 30 tablet, 3 Refills, Maintenance, 02/22/16 8:30:19, 1 tablet By Mouth Daily,x30 days [...] Care Nurse Name: Lyric Adames RN Position: [facility] SN RN Member Role: Primary Care Nurse Name: Taylor Zapata MD Position: [facility] Physician - Primary Care Member Role: PCP Address: Address: [address] Name: Lesvia Louie RN Position: [facility] OB RN Member Role: Primary Care Nurse Care Team Related Persons Name: QUINTON KELLEY Address: [address] [place] [address] Name: SALINA KELLEY Address: [address] [place] [address]
--- OUTSIDE RECORDS SUMMARY | 2023-09-11 12:54 | XMS_ITS | Continuity of Care Document ---
Author Organization [facility] Address [address] [place] [address]- Care Team Providers Care Postal Transportation Clerk Name Role Phone Taylor Zapata MD Primary Care Physician Encounter [facility] Date(s): 05/22/23 - 06/21/23 [facility] [address] [place] [address]- Allergies, Adverse Reactions, Alerts Substance Reaction Severity [...] tetanus/diphtheria/pertussis, acel(Tdap) 06/02/11 Recorded 1Result Comment: [facility] 49726-838-88 Medications Alprazolam By Mouth, Refills 0, Maintenance, [...] team information Care Team Personnel Name: Praveena Ldad RN Position: S RN Member Role: Primary Care Nurse Name: Lyric Adames RN Position: [facility] SN RN Member Role: Primary Care Nurse Name: Taylor Zapata MD Position: [facility] Physician - Primary Care Member Role: PCP Address: Address: [address] Name: Lesvia Louie RN Position: [facility] OB RN Member Role: Primary Care Nurse Care Team Related Persons Name: QUINTON KELLEY Address: [address] [place] [address] Name: SALINA KELLEY Address: [address] [place] [address]
--- OUTSIDE RECORDS SUMMARY | 2023-09-11 12:54 | XMS_ITS | Continuity of Care Document ---
Author Organization [facility] Address [address] [facility] [place] [address]- Care Team Providers Care Director Cardiology Name Role Phone Taylor Zapata MD Primary Care Physician [phone] En[place] [facility] Date[place]s): 04/19/23 - 05/19/23 [facility] [address] [place] [address]- Attending Physician: Admtr, Ar8 Admitting Physician: Admtr, Ar8 Referring Physician: Admtr, [...] 1Result Comment: [facility] [id number] Medications Alprazolam By Mouth, Refills 0, Maintenance, [...] Care Nurse Name: Lyric Adames RN Position: [facility] SN RN Member Role: Primary Care Nurse Name: Taylor Zapata MD Position: [facility] Physician - Primary Care Member Role: PCP Address: Address: [address] Name: Lesvia Louie RN Position: [facility] OB RN Member Role: Primary Care Nurse Care Team Related Persons Name: QUINTON KELLEY Address: home [address] [place] [address] Name: SALINA KELLEY Address: [address] [place] [address]
--- NOTE | 2023-09-11 14:02 | PC.NURSE ---
Patient in [facility]. 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 Patient scheduled to get PET scan. [facility] clinic also found that one of patients lower lung lobes is deflated. No new orders at this time.
[2023-09-11] MEDS: Lidocaine HCl 1 % MPF 5 ML VIAL SUBCUT (15:07)
[2023-09-11] MEDS: Albumin Human 25 % 100 ML IV (15:37)
== END 2023-09-11 16:56 | disposition home or self-care (01) ==
LOC: HO.SSS 12:51
PROVIDERS: Physician Assistant Surgical; PCP Internal Medicine; Visit Provider Internal Medicine Gastroenterology
DX: R18.8 Other ascites (principal); K76.9 Liver disease, unspecified; I11.0 Hypertensive heart disease with heart failure; I50.9 Heart failure, unspecified; Z88.5 Allergy status to narcotic agent; Z88.8 Allergy status to other drugs, medicaments and biological substances
CPT/HCPCS: 49083; P9047

== ENCOUNTER → 2023-09-11 14:04 | Outpatient (BNV) | payer MEDICARE, OTHER, SELFPAY | PROVIDERS: PCP Internal Medicine; Visit Provider Physician Assistant Surgical | DX: R18.8 Other ascites (principal) | CPT/HCPCS: 49083 ==

== ENCOUNTER 2023-09-26 12:24 | Day surgery (SDC) | payer MEDICARE, OTHER, SELFPAY ==
--- NOTE | ~2023-09-26 | US_ITS ---
Ultrasound paracentesis History: Ascites. Risks and benefits and possible complications were discussed with the patient and consent form was signed. A safe pocket of ascitic fluid was identified using ultrasound guidance, and the overlying skin was marked. The abdomen prepped and draped in sterile fashion. 1% lidocaine was used as a local anesthetic. Using ultrasound guidance, a 5 fr catheter was placed into the ascitic pocket. 5.4 liters of gia fluid was removed passively. The catheter was then removed. A few retail field representative images from before and after the examination were obtained. The procedure was performed by Gabriel Tai PA-C and supervised by Dr. Polk. US/US paracentesis abd w/image Impression: Ultrasound-guided paracentesis as described above. No immediate complications
[2023-09-26 13:17] VITALS: BMI 27.3
[2023-09-26 15:05] VITALS: BP 130/71; PULSE 89; RESP 16; TEMP 36.7; O2SAT 100
[2023-09-26] MEDS: Lidocaine HCl 1 % MPF 5 ML VIAL SUBCUT (15:07)
== END 2023-09-26 15:31 | disposition home or self-care (01) ==
PROVIDERS: Physician Assistant Surgical; PCP Internal Medicine; Visit Provider Internal Medicine Gastroenterology
DX: R18.8 Other ascites (principal); K76.9 Liver disease, unspecified; Z94.4 Liver transplant status; I11.0 Hypertensive heart disease with heart failure; I50.9 Heart failure, unspecified
CPT/HCPCS: 49083; P9047

== ENCOUNTER → 2023-09-26 14:00 | Outpatient (BNV) | payer MEDICARE, OTHER, SELFPAY | PROVIDERS: PCP Internal Medicine; Visit Provider Physician Assistant Surgical | DX: R18.8 Other ascites (principal) | CPT/HCPCS: 49083 ==

== ENCOUNTER 2023-10-01 16:33 | Emergency (ER) | payer MEDICARE, OTHER, SELFPAY ==
--- NOTE | ~2023-10-01 | XR_ITS ---
Examination: XR forearm RT 2V, XR wrist RT 2V Indication: fall Comparison: No pertinent prior studies are currently available for comparison. Technique: 2 views of the right forearm and 4 views of the right ankle Findings: Bones are in normal anatomic alignment. I do not appreciate any acute fracture or dislocation to the forearm more visualized wrist. Overlying bandage material is in place. No radiopaque foreign body or soft tissue gas. XR/XR forearm RT 2V Impression: No acute fracture or dislocation.
--- NOTE | ~2023-10-01 | XR_ITS ---
Examination: XR forearm RT 2V, XR wrist RT 2V Indication: fall Comparison: No pertinent prior studies are currently available for comparison. Technique: 2 views of the right forearm and 4 views of the right ankle Findings: Bones are in normal anatomic alignment. I do not appreciate any acute fracture or dislocation to the forearm more visualized wrist. Overlying bandage material is in place. No radiopaque foreign body or soft tissue gas. XR/XR wrist RT 2V Impression: No acute fracture or dislocation.
--- NOTE | ~2023-10-01 | CT_ITS ---
EXAMINATION: CT HEAD WITHOUT CONTRAST CT CERVICAL SPINE WITHOUT CONTRAST CLINICAL INFORMATION: Fall. Injury. COMPARISON: CT head December 15, 2022 TECHNIQUE: Imaging was performed from the skull base to vertex without intravenous administration of contrast. In addition, helical noncontrast CT imaging was acquired through the cervical spine and source images were reviewed along with axial reconstructions and sagittal and coronal MPRs. [This CT examination was performed using dose optimization techniques as appropriate, variously including the following: *Automated exposure control *Adjustment of mA and/or kV according to patient size (this includes techniques or standardized protocols for targeted exams where dose is matched to indication/reason for exam; i.e. extremities or head) *Use of iterative reconstruction technique] DLP: 745 mGy-cm FINDINGS: HEAD: No intracranial mass, hemorrhage, or midline shift is visualized. There is generalized global volume loss. There is moderate prominence of the ventricles and the sulci . There is mild hypodensity of the periventricular white matter due to chronic small vessel ischemic disease. There are vascular calcifications of the internal carotid arteries bilaterally. No extra-axial collections are identified. 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 This is unchanged since CAT scan December 15, 2022. The paranasal sinuses and mastoid air cells are well aerated. CERVICAL SPINE: There is no evidence of acute cervical spine fracture. Vertebral bodies remain normal in height. Cervical vertebrae have normal alignment. There is multilevel degenerative spondylosis of the cervical spine with disc height narrowing and endplate spurs and facet joint arthrosis No pre- or paravertebral soft tissue abnormality is identified. There is dependent right pleural effusion extending to the right lung apex. CT/CT cervical spine wo IV con IMPRESSION: 1. No acute intracranial pathology. 2. No CT evidence of acute cervical spine fracture or traumatic subluxation
[2023-10-01 16:42] VITALS: BP 130/75; PULSE 107; RESP 16; TEMP 36.1; O2SAT 97; BMI 28.3
--- NOTE | 2023-10-01 16:56 | ED.GENADULT ---
HPI - General Adult General Chief complaint: Fall Stated complaint: lac r arm Time Seen by Provider: 10/01/23 17:51 Source: patient Mode of arrival: ambulatory Limitations: no limitations History of Present Illness HPI narrative: Patient is a 68-year-old female who presents emergency department for evaluation after mechanical trip and fall. Reports she was outside working in her garden when she accidentally tripped falling into a rock wall sustaining lacerations to posterior right forearm and dorsum of the hand. She admits to head strike but denies loss of consciousness. Admits to daily aspirin no additional anticoagulants or known coagulation disorder. She reports that she is up-to-date on her tetanus vaccination. Denies dizziness, lightheadedness, headache, vision changes, neck pain, chest pain or shortness of breath, numbness or tingling of her extremities. Related Data Home Medications ?Medication ?Instructions ?Recorded ?Confirmed cholecalciferol (vitamin D3) 25 25 mcg PO DAILY 04/25/22 09/11/23 mcg (1,000 unit) capsule (Vitamin D3) tacrolimus 0.5 mg capsule, 0.5 mg PO Q12H 08/22/22 09/11/23 immediate-release bupropion HCl 300 mg 24 hr tablet, 300 mg PO DAILY 02/28/23 09/11/23 extended release guaifenesin 100 mg/5 mL oral liquid 200 mg PO Q4H PRN Cough 03/08/23 09/11/23 aspirin 81 mg tablet,delayed 81 mg PO DAILY 06/13/23 09/11/23 release fluticasone propionate 50 1 spray intranasal DAILY PRN 09/11/23 09/11/23 mcg/actuation nasal allergies spray,suspension furosemide 40 mg tablet 60 mg PO DAILY 09/11/23 09/11/23 Previous Rx's ?Medication ?Instructions ?Recorded walker (Ultra-Light Rollator misc) #1 ea 12/16/22 colesevelam 625 mg tablet 1,250 mg (2 x 625 mg) PO BID 30 03/22/23 days #120 tabs inhalational spacing device (Alex #90 ea 05/28/23 Aerosol [place] Enhancer spacer) ondansetron 4 mg disintegrating 4 mg PO Q8H PRN for 05/28/23 tablet nausea/vomiting #270 tabs pyridoxine (vitamin B6) 100 mg 100 mg PO BID #180 tabs 05/28/23 tablet esomeprazole magnesium 40 mg 40 mg PO DAILY #90 caps 06/20/23 capsule,delayed release cyanocobalamin (vitamin B-12) 1,000 mcg PO DAILY #90 tabs 06/22/23 1,000 mcg tablet (Vitamin B-12) gabapentin 300 mg capsule 600 mg (2 x 300 mg) PO BEDTIME 07/01/23 #180 caps ursodiol 500 mg tablet 500 mg PO BID #180 tabs 08/13/23 albuterol sulfate 90 mcg/actuation 2 puff inhalation Q4-6H PRN for 08/20/23 aerosol inhaler wheezing #6.7 grams zinc acetate 50 mg (zinc) capsule 50 mg PO DAILY 90 days #90 caps 10/01/23 (Galzin) Allergies Allergy/AdvReac Type Severity Reaction Status Date / Time hydromorphone [From Dilaudid] Allergy Severe Hallucinati Verified 10/01/23 16:43 ons losartan Allergy Intermediate Facial Verified 10/01/23 16:43 Swelling Sulfa (Sulfonamide AdvReac Severe Rash Verified 10/01/23 16:43 Antibiotics) Review of Systems Review of Systems: Yes all other systems are reviewed and are negative PMFSH Past Medical History Attestation statement: The following information was validated with the patient. Medical History Fracture of fifth metatarsal bone of right foot Shakes Frequent falls Ascites Anemia CHF (congestive heart failure) Pancytopenia Anxiety HTN (hypertension) Tremor Chronic diarrhea Primary biliary cholangitis Breast cancer Surgical History Hx of sigmoidoscopy H/O wrist surgery Transplant recipient Hx of colonoscopy Hx of esophagogastroduodenoscopy H/O: hysterectomy S/P hip replacement Liver transplant recipient Family History Family History Mother CAD (coronary artery disease) Sister Ovarian cancer Mental health disorder Social History Social History Household Members: Spouse Household Members Other:: , children Housing: House Do you presently have visiting nurse or other home services: No Alcohol intake: never Patient Tobacco Use Status: Former Tobacco user Tobacco use type: Cigarette e-Cigarette/Vaping Use: Never Used Second Hand Smoke Exposure: No Advance Directives: No Advance Directives Information Provided: No Advance Directives Date on File: 12/15/22 Do you have a plan to hurt others: No Plan service: No Current occupational status: retired Cognitive needs: No Hearing needs: No Vision needs: Yes Physical Exam ED Vital Signs: Vital Signs - 24 hr 10/01/23 16:42 Temperature 96.9 F Pulse Rate 107 H Respiratory Rate 16 Blood Pressure 130/75 Pulse Oximetry 97 Oxygen Delivery Method Room Air BMI result Body Mass Index 28.3 Appearance: Alert.?Oriented to person, place and time. No acute distress.?Normal affect. Head: Normocephalic, atraumatic Eyes: Pupils equal, round and reactive to light.? EOMI. No nystagmus. ENT: Pharynx normal.?? Neck: Normal inspection.? Neck supple.??No midline cervical spine tenderness, step-offs, deformities CVS: Heart sounds normal. Normal heart rate and rhythm.? Pulses normal.?? Respiratory: No respiratory distress.? Lung sounds clear to auscultation bilaterally?? Abdomen: Soft and non-tender. Normoactive bowel sounds. Skin: Skin warm and dry.? Normal skin color.? Multiple skin tears to the right posterior forearm and dorsum of the right hand. Diffuse tenderness upon palpation to the forearm. No obvious deformity. Extremities: No extremity edema.? Neuro: Moves all extremities spontaneously. Sensation intact bilaterally. CN II-XII intact. No focal neuro deficits. Ambulates with normal steady gait. Course Course Course Narrative: RME performed by Mikaela Arciniega PA-C. Patient is a 68 year old assigned female at presenting to the emergency department with right arm pain / lacerations. Patient states that she tripped and fell, landing on a rock wall. Patient states that she did hit her head but did not have any loss of consciousness. Detailed physical exam and review of systems are deferred to the jukebox checker. Imaging ordered. Patient placed back in the waiting room pending room availability and results. Medical Decision Making Medical Decision Making MDM Narrative: Patient is a 68-year-old female with past medical history of liver transplant currently on transplant list, anemia, CHF, pancytopenia, anxiety, hypertension, chronic diarrhea, ascites, who presents to the emergency department for evaluation after a mechanical fall as per HPI. She admits to head strike but there was no loss of consciousness, on examination she has no focal neurological deficits. CT of the head and cervical spine was obtained, no evidence of ICH, fracture, subluxation. She has ambulatory with a steady gait. Has superficial avulsion skin tears to the right posterior forearm and dorsum of the hand which were irrigated extensively with normal saline and Betadine. Repaired with Steri-Strips and clean dry dressing applied. Stable for discharge home, outpatient follow-up with primary care provider, topical bacitracin to the remainder of the open wound. Differential Diagnosis Differential Diagnoses: The differential diagnosis associated with the presentation includes (See narrative above) Admission/Observation Consideration of admission/observation: Escalation of care including admission/observation considered Independent Interpretation I performed an independent interpretation of an: Plain X-Ray (No acute fracture to right forearm/wrist) and CT Scan (No ICH or fracture) Radiology Impression Discussion of test interpretation with radiology: I have reviewed the radiologist's reading. Radiologist Impression: XR/XR forearm RT 2V Impression: No acute fracture or dislocation. Independent Historian Clinical information obtained from an independent historian. History obtained from or confirmed by: Spouse External Record Review External record reviewed: Outpatient record Discharge Plan Discharge Clinical Impression: Laceration of forearm, right Qualifiers: Encounter type: initial encounter Qualified Code(s): S51.811A - Laceration without foreign body of right forearm, initial encounter Patient Disposition: Home, Self-Care Instructions: Laceration (ED), Steristrips (ED) Prescriptions: No Action colesevelam 625 mg tablet 1,250 mg PO BID 30 Days Qty: 120 3RF ondansetron 4 mg tablet,disintegrating 4 mg PO Q8H PRN (Reason: for nausea/vomiting) Qty: 270 0RF (DME) Alex Aerosol [place] Enhancer Spacer See Rx Instructions .ROUTE .COMPLEX Qty: 90 0RF Dose Instruction: USE DIRECTED Rx Instructions: USE DIRECTED pyridoxine (vitamin B6) 100 mg tablet 100 mg PO BID Qty: 180 0RF esomeprazole magnesium 40 mg capsule,delayed release(DR/EC) 40 mg PO DAILY Qty: 90 2RF cyanocobalamin (vitamin B-12) [Vitamin B-12] 1,000 mcg tablet 1,000 mcg PO DAILY Qty: 90 3RF gabapentin 300 mg capsule 600 mg PO BEDTIME Qty: 180 2RF ursodiol 500 mg tablet 500 mg PO BID Qty: 180 1RF albuterol sulfate 90 mcg/actuation HFA aerosol inhaler 2 puff inhalation Q4-6H PRN (Reason: for wheezing) Qty: 6.7 1RF Galzin 50 mg (zinc) capsule 50 mg PO DAILY 90 Days Qty: 90 1RF cholecalciferol (vitamin D3) [Vitamin D3] 25 mcg (1,000 unit) Capsule 25 mcg PO DAILY (DME) Ultra-Light Rollator Misc See Rx Instructions .Route Qty: 1 0RF Rx Instructions: As directed bupropion HCl 300 mg tablet extended release 24 hr 300 mg PO DAILY furosemide 40 mg tablet 60 mg PO DAILY fluticasone propionate 50 mcg/actuation spray,suspension 1 spray intranasal DAILY PRN (Reason: allergies) guaifenesin 100 mg/5 mL liquid 200 mg PO Q4H PRN (Reason: Cough) tacrolimus 0.5 mg capsule 0.5 mg PO Q12H aspirin 81 mg tablet,delayed release (DR/EC) 81 mg PO DAILY Referrals: Taylor Zapata MD [Primary Care Provider] - Print Language: Comoran
[2023-10-01] MEDS: Bacitracin Oint 0.9 GM PACKET 1 APPL TOPICAL (19:33)
[2023-10-01 19:44] VITALS: BP 107/69; PULSE 78; RESP 16; TEMP 36.6; O2SAT 97
== END 2023-10-01 19:44 | disposition home or self-care (01) ==
PROVIDERS: Emergency Provider Internal Medicine; PCP Internal Medicine
DX: S51.811A Laceration without foreign body of right forearm, initial encounter (principal); R51.9 Headache, unspecified; M54.2 Cervicalgia; M25.531 Pain in right wrist; W01.0XXA Fall on same level from slipping, tripping and stumbling without subsequent striking against object, initial encounter; Y93.9 Activity, unspecified; Y92.007 Garden or yard of unspecified non-institutional (private) residence as the place of occurrence of the external cause; Y99.8 Other external cause status; Z79.899 Other long term (current) drug therapy
CPT/HCPCS: 70450; 72125; 73090; 73100; 99283; 99284

== ENCOUNTER 2023-10-05 08:17 | Outpatient (AMB) | payer MEDICARE, OTHER, SELFPAY ==
[2023-10-05 09:08] VITALS: BP 112/70; PULSE 83; TEMP 36.5; O2SAT 100; BMI 23.4
--- NOTE | 2023-10-05 09:08 | AM.OFFWIN_ITS ---
Intake Vital Signs 3 10/05/23 09:08 Height 5 ft Weight 120 lb BMI 23.4 BP 112/70 Blood Pressure Location Rt brachial Position Sitting Pulse 83 Pulse Source Pulse Oximeter Temp 97.7 F Temp Source Oral Pulse Oximetry (%) 100 Oxygen Delivery Method Room Air Intake Visit Reasons: EP RT arm injury/ED wanted it rechecked Intake Note: pt is here for right arm injury, went to ED and would like it checked to make sure its not infected Patient Tobacco Use Status: Former Tobacco user Allergies hydromorphone [From Dilaudid] Allergy (Severe, Verified 10/05/23 09:09) Hallucinations losartan Allergy (Intermediate, Verified 10/05/23 09:09) Facial Swelling Sulfa (Sulfonamide Antibiotics) Adverse Reaction (Severe, Verified 10/05/23 09:09) Rash Do you need a note to return to daycare/school/sports/work: No HPI HPI Comments 2 History of Present Illness0 Details 68 y/o female patient who presents to [facility] in clinic with c/o mechanical trip and fall. Reports she was outside working in her garden when she accidentally tripped falling into a rock wall sustaining lacerations to posterior right forearm and dorsum of the hand. Pt was seen and evaluated at ED 10/01/23, imaging negative for Fracture. The wounds were cleaned and dressed up. Today Pt would like to be referred to wound clinic for wound care. [facility] Medical History Fracture of fifth metatarsal bone of right foot Shakes Frequent falls Ascites Anemia CHF (congestive heart failure) Pancytopenia Anxiety HTN (hypertension) Tremor Chronic diarrhea Primary biliary cholangitis Breast cancer Surgical History Hx of sigmoidoscopy H/O wrist surgery Transplant recipient Hx of colonoscopy Hx of esophagogastroduodenoscopy H/O: hysterectomy S/P hip replacement Liver transplant recipient Family History Mother CAD (coronary artery disease) Sister Ovarian cancer Mental health disorder Social History Household Members: Spouse Household Members Other:: , children Housing: House Do you presently have visiting nurse or other home services: No Alcohol intake: never Patient Tobacco Use Status: Former Tobacco user Tobacco use type: Cigarette e-Cigarette/Vaping Use: Never Used Second Hand Smoke Exposure: No Advance Directives Date on File: 12/15/22 service: No Current occupational status: retired Cognitive needs: No Hearing needs: No Vision needs: Yes Review of Systems Const All systems reviewed & are unremarkable except as noted in HPI and below Physical Exam Vital Signs: Last Vital Signs Temp 97.7 F 10/05/23 09:08 Pulse 83 10/05/23 09:08 BP 112/70 10/05/23 09:08 Pulse Ox 100 10/05/23 09:08 Oxygen Delivery Method Room Air 10/05/23 09:08 BMI result Body Mass Index 23.4 Const General: comfortable and no acute distress Nutritional Appearance: well nourished Orientation/consciousness: patient oriented x3 Skin Other: Skin warm and dry.? Normal skin color.? Multiple skin tears to the right posterior forearm and dorsum of the right hand. Diffuse tenderness upon palpation to the forearm. No signs of infection, early stages of healing. Trauma: abrasion and laceration (right Arm/hand) Full body images: 2 1. Skin warm and dry. Normal skin color. Multiple skin tears to the right posterior forearm and dorsum of the right hand. Diffuse tenderness upon palpation to the forearm. Neuro General: patient oriented x3, gait normal and moves all extremities Psych Speech and movement: Normal speech and movement present Assessment & Plan Assessment & Plan (1) Laceration of right upper arm: Code(s): S41.111A - Laceration without foreign body of right upper arm, initial encounter Qualifiers: Encounter type: initial encounter Qualified Code(s): S41.111A - Laceration without foreign body of right upper arm, initial encounter Plan: Re-dressed the wounds with clean Gauze, Xeroform and wrapped with Alex Will message PCP and request wound Care referral No need for Abx, no infection, skin color normal. Coding Level of Care Code Est Pt Level 3 (16839) Diagnoses Laceration of right upper arm, initial encounter S41.111A Encounter type: initial encounter Time Spent (min) 15
== END 2023-10-05 09:43 | disposition home or self-care (01) ==
PROVIDERS: PCP Internal Medicine; Visit Provider Nurse Practitioner Family
DX: S41.111A Laceration without foreign body of right upper arm, initial encounter (principal)
CPT/HCPCS: 99213

== ENCOUNTER 2023-10-11 08:03 | Outpatient (RCR) | payer MEDICARE, OTHER, SELFPAY | END 2023-11-23 10:35 | disposition home or self-care (01) | LOC: HO.WCC 08:03 | PROVIDERS: Visit Provider Surgery | DX: S51.811A Laceration without foreign body of right forearm, initial encounter (principal); S61.411A Laceration without foreign body of right hand, initial encounter; Z79.01 Long term (current) use of anticoagulants; Z79.899 Other long term (current) drug therapy; Z92.3 Personal history of irradiation; Z87.891 Personal history of nicotine dependence | CPT/HCPCS: 11042; 99213 ==

== ENCOUNTER 2023-10-15 07:35 | Day surgery (SDC) | payer MEDICARE, OTHER, SELFPAY ==
--- NOTE | ~2023-10-15 | US_ITS ---
Ultrasound paracentesis History: Ascites. Risks and benefits and possible complications were discussed with the patient and consent form was signed. A safe pocket of ascitic fluid was identified using ultrasound guidance, and the overlying skin was marked. The abdomen prepped and draped in sterile fashion. 1% lidocaine was used as a local anesthetic. Using ultrasound guidance, a 5 fr catheter was placed into the ascitic pocket. 4.0 liters of gia fluid was removed passively. The catheter was then removed. A few route service representative images from before and after the examination were obtained. The procedure was performed by Gabriel Tai PA-C and supervised by Dr. Polk. US/US paracentesis abd w/image Impression: Ultrasound-guided paracentesis as described above. No immediate complications
[2023-10-15 07:52] VITALS: BMI 26.0
[2023-10-15 10:20] VITALS: BP 141/82; PULSE 91; RESP 16; TEMP 36.7; O2SAT 100
[2023-10-15] MEDS: Lidocaine HCl 1 % MPF 5 ML VIAL SUBCUT (10:26)
[2023-10-15 10:35] VITALS: BP 140/74; PULSE 88; RESP 15; TEMP 36.7; O2SAT 100
== END 2023-10-15 10:46 | disposition home or self-care (01) ==
PROVIDERS: Physician Assistant Surgical; PCP Internal Medicine; Visit Provider Internal Medicine Gastroenterology
DX: R18.8 Other ascites (principal); K74.3 Primary biliary cirrhosis; Z94.4 Liver transplant status; I85.00 Esophageal varices without bleeding; I11.0 Hypertensive heart disease with heart failure; I50.9 Heart failure, unspecified; Z88.2 Allergy status to sulfonamides; Z88.8 Allergy status to other drugs, medicaments and biological substances; Z91.81 History of falling; Z87.891 Personal history of nicotine dependence
CPT/HCPCS: 49083

== ENCOUNTER → 2023-10-15 09:26 | Outpatient (BNV) | payer MEDICARE, OTHER, SELFPAY | PROVIDERS: PCP Internal Medicine; Visit Provider Physician Assistant Surgical | DX: R18.8 Other ascites (principal) | CPT/HCPCS: 49083 ==

== ENCOUNTER 2023-10-23 07:31 | Day surgery (SDC) | payer MEDICARE, OTHER, SELFPAY ==
--- NOTE | ~2023-10-23 | US_ITS ---
ULTRASOUND GUIDED PARACENTESIS HISTORY: Ascites. TECHNIQUE: Risks and benefits and possible complications were discussed with the patient and consent form was signed. A safe pocket of ascitic fluid was identified using ultrasound guidance, and the overlying skin was marked, prepped and draped in sterile fashion. 1% lidocaine was used as a local anesthetic. Using ultrasound guidance, a 5 fr catheter was placed into the ascitic pocket. 4.4 liters of gia fluid was removed passively. The catheter was then removed. A few client representative images from before and after the examination were obtained. The procedure was performed by Gabriel Tai PA-C and supervised by Dr. Agarwal. US/US paracentesis abd w/image IMPRESSION: Ultrasound-guided paracentesis as described above. No immediate complications
[2023-10-23 07:49] VITALS: BMI 25.9
[2023-10-23 10:20] VITALS: BP 128/77; PULSE 86; RESP 16; TEMP 36.9; O2SAT 100
[2023-10-23] MEDS: Lidocaine HCl 1 % MPF 5 ML VIAL SUBCUT (10:26)
[2023-10-23 10:35] VITALS: BP 121/83; PULSE 88; RESP 16; O2SAT 100
[2023-10-23 10:50] VITALS: BP 131/77; PULSE 84; RESP 16; O2SAT 100
[2023-10-23 11:05] VITALS: BP 125/75; PULSE 90; RESP 16; TEMP 37.3; O2SAT 100
[2023-10-23 11:22] VITALS: BP 134/83; PULSE 89; RESP 16; TEMP 36.6; O2SAT 100
== END 2023-10-23 11:31 | disposition home or self-care (01) ==
PROVIDERS: Physician Assistant Surgical; PCP Internal Medicine; Visit Provider Internal Medicine Gastroenterology
DX: R18.8 Other ascites (principal); Z94.4 Liver transplant status; K74.3 Primary biliary cirrhosis; I11.0 Hypertensive heart disease with heart failure; I50.9 Heart failure, unspecified; D61.818 Other pancytopenia; Z91.81 History of falling; Z87.891 Personal history of nicotine dependence; Z88.2 Allergy status to sulfonamides; Z88.8 Allergy status to other drugs, medicaments and biological substances
CPT/HCPCS: 49083

== ENCOUNTER → 2023-10-23 09:30 | Outpatient (BNV) | payer MEDICARE, OTHER, SELFPAY | PROVIDERS: PCP Internal Medicine; Visit Provider Physician Assistant Surgical | DX: R18.8 Other ascites (principal) | CPT/HCPCS: 49083 ==

== ENCOUNTER 2023-11-01 07:30 | Day surgery (SDC) | payer MEDICARE, OTHER, SELFPAY ==
--- NOTE | ~2023-11-01 | US_ITS ---
Ultrasound paracentesis History: Ascites. Risks and benefits and possible complications were discussed with the patient and consent form was signed. A safe pocket of ascitic fluid was identified using ultrasound guidance, and the overlying skin was marked. The abdomen prepped and draped in sterile fashion. 1% lidocaine was used as a local anesthetic. Using ultrasound guidance, a 5 fr catheter was placed into the ascitic pocket. 5.1 liters of yellow fluid was removed passively. The catheter was then removed. A few sales representative printing images from before and after the examination were obtained. The procedure was performed by Gabriel Tai PA-C and supervised by Dr. Champion. US/US paracentesis abd w/image Impression: Ultrasound-guided paracentesis as described above. No immediate complications
[2023-11-01 08:03] VITALS: BMI 25.0
[2023-11-01 08:04] VITALS: BP 142/84; PULSE 89; RESP 16; TEMP 36.8; O2SAT 100
[2023-11-01] MEDS: Lidocaine HCl 1 % MPF 5 ML VIAL SUBCUT (10:24)
[2023-11-01 10:27] VITALS: BP 130/78; PULSE 88; RESP 16; TEMP 37.6
== END 2023-11-01 10:36 | disposition home or self-care (01) ==
PROVIDERS: Physician Assistant Surgical; PCP Internal Medicine; Visit Provider Internal Medicine Gastroenterology
DX: R18.8 Other ascites (principal); I11.0 Hypertensive heart disease with heart failure; I50.9 Heart failure, unspecified; R25.1 Tremor, unspecified; Z86.73 Personal history of transient ischemic attack (TIA), and cerebral infarction without residual deficits; Z87.891 Personal history of nicotine dependence; Z88.2 Allergy status to sulfonamides; Z88.8 Allergy status to other drugs, medicaments and biological substances
CPT/HCPCS: 49083

== ENCOUNTER → 2023-11-01 09:30 | Outpatient (BNV) | payer MEDICARE, OTHER, SELFPAY | PROVIDERS: PCP Internal Medicine; Visit Provider Physician Assistant Surgical | DX: R18.8 Other ascites (principal) | CPT/HCPCS: 49083 ==

== ENCOUNTER 2023-11-12 07:29 | Day surgery (SDC) | payer MEDICARE, OTHER, SELFPAY ==
--- NOTE | ~2023-11-12 | US_ITS ---
ULTRASOUND GUIDED PARACENTESIS HISTORY: Ascites. TECHNIQUE: Risks and benefits and possible complications were discussed with the patient and consent form was signed. A safe pocket of ascitic fluid was identified right lower quadrant using ultrasound guidance, and the overlying skin was marked, prepped and draped in sterile fashion. 1% lidocaine was used as a local anesthetic. Using ultrasound guidance, a 5 fr catheter was placed into the ascitic pocket. 3.6 liters of yellow fluid was removed passively. The catheter was then removed. A few client representative images from before and after the examination were obtained. The procedure was performed by Gabriel Tai PA-C and supervised by Dr. Agarwal. US/US paracentesis abd w/image IMPRESSION: Ultrasound-guided paracentesis as described above. No immediate complications
[2023-11-12 07:46] VITALS: BMI 24.8
[2023-11-12] MEDS: Lidocaine HCl 1 % MPF 5 ML VIAL SUBCUT (10:19)
[2023-11-12 10:40] VITALS: BP 142/70; PULSE 88; RESP 16; TEMP 36.8; O2SAT 100
[2023-11-12 10:55] VITALS: BP 120/75; PULSE 86; RESP 15; TEMP 36.8; O2SAT 99
== END 2023-11-12 11:05 | disposition home or self-care (01) ==
PROVIDERS: Physician Assistant Surgical; PCP Internal Medicine; Visit Provider Internal Medicine Gastroenterology
DX: R18.8 Other ascites (principal); K76.9 Liver disease, unspecified; Z94.4 Liver transplant status; I10 Essential (primary) hypertension; Z88.2 Allergy status to sulfonamides; Z88.8 Allergy status to other drugs, medicaments and biological substances
CPT/HCPCS: 49083

== ENCOUNTER → 2023-11-12 09:30 | Outpatient (BNV) | payer MEDICARE, OTHER, SELFPAY | PROVIDERS: PCP Internal Medicine; Visit Provider Physician Assistant Surgical | DX: R18.8 Other ascites (principal) | CPT/HCPCS: 49083 ==

== ENCOUNTER 2023-11-26 07:29 | Day surgery (SDC) | payer MEDICARE, OTHER, SELFPAY ==
--- NOTE | ~2023-11-26 | US_ITS ---
EXAMINATION: US ABDOMEN LIMITED CLINICAL INFORMATION: Liver disease. COMPARISON: Abdominal ultrasound 11/12/2023 TECHNIQUE: Real-time imaging of the abdomen. FINDINGS: Moderate to large volume ascites. US/US abdomen limited IMPRESSION: Moderate to large volume ascites. Electronically signed by: Jacque Macario MD 12/10/2023 06:33 PM EDT
[2023-11-26 08:05] VITALS: BMI 21.9
[2023-11-26 08:06] VITALS: BP 117/74; PULSE 90; RESP 16; TEMP 37.1; O2SAT 100
[2023-11-26 08:13] LABS: MANUAL DIFF FLAG NO
[2023-11-26 08:15] LABS: Basophils Percent Auto 0.6 % (0-2); Eosinophils Absolute Auto 0.1 X10*3/uL (0.0-0.4); Eosinophils Percent Auto 3.4 % (0-4); Hemoglobin 10.7 g/dl (12.0-16.0); Imm Gran Abs Auto 0.01 X10*3/uL (0.00-0.03); Imm Gran Pct Auto 0.3 % (0.0-0.4); Lymphocytes Absolute Auto 0.5 X10*3/uL (1.2-4.9); Lymphocytes Percent Auto 14.1 % (20-40); Mean Corpuscular HGB Conc 31.5 g/dl (31.0-35.0); Mean Corpuscular Hemoglobin 28.5 pg (27.0-33.0); Mean Corpuscular Volume 90.7 fL (80.0-98.0); Mean Platelet Volume 9.2 fL (9.4-12.3); Monocytes Absolute Auto 0.5 X10*3/uL (0.1-1.2); Monocytes Percent Auto 14.1 % (2-11); Neutrophils Absolute Auto 2.2 x10*3/uL (2.0-8.3); Neutrophils Percent Auto 67.5 % (45-73); Platelet Count 116 X10*3/uL (160-400); Red Blood Count 3.75 X10*6/uL (4.20-5.50); Red Cell Distribution Width 16.5 % (11.0-16.0); White Blood Count 3.3 X10*3/uL (4.8-10.8)
[2023-11-26 08:35] LABS: INTERNATIONAL NORM RATIO 1.2 (0.9-1.1); Prothrombin Time 14.1 SEC (11.1-13.3)
[2023-11-26 08:39] LABS: Partial Thromboplastin Time 33.3 SEC (26.0-36.8)
[2023-11-26 08:41] LABS: Anion Gap 11 (12-20); Blood Urea Nitrogen 22 mg/dL (9-16); Calcium 8.3 mg/dL (8.4-10.2); Carbon Dioxide 25 mmol/L (22-29); Chloride 108 mmol/L (96-108); Creatinine Clr Calc Pharmacy 36.2; Estimated Glomerular Filt Rate 55; Glucose Random 95 mg/dL (60-115); Sodium 140 mmol/L (135-145)
--- NOTE | 2023-11-26 10:17 | PC.NURSE ---
Ultrasound showed that paracentesis not needed at this time. Pt dressing in PACU p IV removed. No sedation was given.
== END 2023-11-26 10:20 | disposition home or self-care (01) ==
LOC: HO.SSS 07:30
PROVIDERS: Physician Assistant Surgical; PCP Internal Medicine; Visit Provider Internal Medicine Gastroenterology
DX: R18.8 Other ascites (principal); Z53.8 Procedure and treatment not carried out for other reasons; K74.3 Primary biliary cirrhosis; Z94.4 Liver transplant status; I10 Essential (primary) hypertension
CPT/HCPCS: 36415; 76705; 80048; 85025; 85610; 85730

== ENCOUNTER 2023-12-06 07:23 | Day surgery (SDC) | payer MEDICARE, OTHER, SELFPAY ==
--- NOTE | ~2023-12-06 | US_ITS ---
EXAMINATION: US ABDOMEN LIMITED CLINICAL INFORMATION: Liver disease. Assess for ascites. COMPARISON: None available. TECHNIQUE: Real-time imaging of the 4 quadrants of the abdomen. FINDINGS: Moderate ascites is present. US/US abdomen limited pre post IMPRESSION: Moderate ascites. Electronically signed by: Kolton Calvert MD 12/08/2023 09:14 AM EDT
[2023-12-06 07:24] VITALS: BMI 22.0
[2023-12-06 07:51] VITALS: BP 105/74; PULSE 92; RESP 18; TEMP 36.8; O2SAT 100
--- NOTE | 2023-12-06 08:31 | PC.NURSE ---
IV was not placed in preop. IR RN will place IV if needed. Patient did not have enough fluid last visit to have procedure and felt the same way today. Author updated IR dept. and decision was made to wait on IV until after ultrasound.
[2023-12-06 08:46] VITALS: BP 115/68; PULSE 89; RESP 16; TEMP 36.6; O2SAT 99
== END 2023-12-06 08:54 | disposition home or self-care (01) ==
LOC: HO.SSS 07:23
PROVIDERS: Physician Assistant Surgical; PCP Internal Medicine; Visit Provider Internal Medicine Gastroenterology
DX: R18.8 Other ascites (principal); Z53.8 Procedure and treatment not carried out for other reasons; K76.9 Liver disease, unspecified
CPT/HCPCS: 76705

== ENCOUNTER 2023-12-18 08:20 | Outpatient (AMB) | payer MEDICARE, OTHER, SELFPAY ==
--- NOTE | 2023-12-18 08:21 | AM.OFFVISMDC ---
Intake Vital Signs 12/18/23 08:22 Height 4 ft 11 in Weight 108 lb BMI 21.8 BP 96/66 Blood Pressure Location Rt brachial Position Sitting Pulse 81 Pulse Source Pulse Oximeter Pulse Oximetry (%) 94 Oxygen Delivery Method Room Air Intake Visit Reasons: SWV G0439 Allergies hydromorphone [From Dilaudid] Allergy (Severe, Verified 12/18/23 08:24) Hallucinations losartan Allergy (Intermediate, Verified 12/18/23 08:24) Facial Swelling Sulfa (Sulfonamide Antibiotics) Adverse Reaction (Severe, Verified 12/18/23 08:24) Rash HPI SWV G0439 HPI Details Patient presents for annual visit. She is going to [facility] tomorrow to discuss another liver transplant. She was rejected by [facility] and [facility]. Ascites is better controlled since spironolactone was added to furosemide. Patient follows up with the GI. Anxiety and depression are stable on current medications and patient is established with a counselor. Initiated the conversation about Advanced Directives. Advanced Directives help? patients prepare for current and future decisions about their medical treatment? and place of care. Discussed with patient that it is a process where a patients? current condition and prognosis are reviewed, their wishes for information? regarding their illness are elicited, and likely medical dilemmas are presented? and options discussed. The form can be amended as needed, reviewed yearly and? make changes as needed IPPE/AWV ? year old presents? for her ? Annual? Wellness Visit, initial visit.? Medical / Social History Reviewed? Past Medical History ?Yes? . ? [place]? of Care / Care Team list updated ?Yes . ? Surgical/Hospitalization? History ?Yes . ? Current Medications? (including OTC and supplements) ?Yes . ? Family History ?Yes? . ? Tobacco? Control form ?Yes . ? AUDIT-C (Alcohol use) form? ?Yes . ? Illicit drug use in Social? History ?Yes . ? Current diagnosis of? depression? ?No ? Appropriate PHQ2/PHQ9? completed ?Yes . ? Data entered by ?Medical? [employer] and reviewed by provider ? Fall Risk ? Fall? History? Have you had any falls with? injury in the past year? ?No . ? Have you had two or more? falls in the past year? ?No . ? Fall Risk Assessment: ?No? falls in the past year . ? HRA filled out by? the patient, reviewed by Provider and scanned. ? IPPE/AWV ? Balance? [place]? ?Yes . ? Tandem? walk ?Yes . ? Walk and? Turn ?Yes . ? Rise from? sit to stand ?Yes . ?Vision? Corrective? lens ?Yes ? Vision? screen ? Up-to-date, has an appointment [] for vision? screening and glaucoma screening ?Hearing? Whisper? test ?pass .? Initiated the conversation about Advanced Directives. Advanced Directives help? patients prepare for current and future decisions about their medical treatment? and place of care. Discussed with patient that it is a process where a patients? current condition and prognosis are reviewed, their wishes for information? regarding their illness are elicited, and likely medical dilemmas are presented? and options discussed. The form can be amended as needed, reviewed yearly and? make changes as needed Written? Plan?Completed. See Patient? Documents. [facility] Medical History (Updated 12/18/23 @ 09:06 by Taylor Zapata MD) Fracture of fourth metatarsal bone of right foot Anxiety Stroke Fracture of fifth metatarsal bone of right foot Shakes Frequent falls Ascites Anemia CHF (congestive heart failure) Pancytopenia HTN (hypertension) Tremor Chronic diarrhea Primary biliary cholangitis Breast cancer Surgical History Hx of sigmoidoscopy H/O wrist surgery Transplant recipient Hx of colonoscopy Hx of esophagogastroduodenoscopy H/O: hysterectomy S/P hip replacement Liver transplant recipient Family History Mother CAD (coronary artery disease) Sister Ovarian cancer Mental health disorder Social History Household Members: Spouse Household Members Other:: , children Housing: House Do you presently have visiting nurse or other home services: No Alcohol intake: never Patient Tobacco Use Status: Former Tobacco user Tobacco use type: Cigarette e-Cigarette/Vaping Use: Never Used Second Hand Smoke Exposure: No Advance Directives Date on File: 12/15/22 service: No Current occupational status: retired Cognitive needs: No Hearing needs: No Vision needs: Yes Questionnaire Medicare Wellness Checkup [age] What gender do you identify with?: female During the past 4 weeks, how much have you been bothered by emotional problems such as feeling anxious, depressed, irritable, sad or downhearted, and blue?: slightly During the past 4 weeks, has your physical & emotional health limited your social activities with family, friends, neighbors, or groups?: not at all During the past 4 weeks, how much bodily pain have you generally had?: no pain During the past 4 weeks, was someone available to help you if you needed & wanted help?: yes, as much as I wanted During the past 4 weeks, what was the hardest physical activity you could do for at least 2 minutes?: very heavy Can you get to places out of walking distance without help? (For eg., can you travel alone on buses, taxis or drive your car?): Yes Can you go shopping for groceries or clothes without someone's help?: Yes Can you prepare your own meals?: Yes Can you do your housework without help?: Yes Because of any health problems, do you need the help of another person with your personal care needs such as eating, bathing, dressing or getting around the house?: No Can you handle your own money without help?: Yes During the past 4 weeks, how would you rate your health in general?: fair During the past 4 weeks how have things been going for you?: pretty well Are you having difficulties driving your car?: no Do you always fasten your seat belt when you are in a car?: yes, usually During past 4 weeks, have you been bothered by the following: never: Sexual problems?, Trouble eating well?, Teeth or denture problems? and Problems using the telephone? and seldom: Falling or dizzy when standing up and Tiredness or fatigue? Have you fallen 2 or more times in the past year?: Yes Are you afraid of falling?: Yes Are you a smoker?: no During the past 4 weeks, how many drinks of wine, beer, or other alcoholic beverages did you have?: no alcohol at all Do you exercise for about 20 minutes 3 or more times a week?: yes, most of the time Have you been given information to help with the following?: yes: Keeping track of your medications? and no: Hazards in your house that might hurt you? How often do you have trouble taking medicines the way you have been told to take them?: I always take medicine as prescribed How confident are you that you can control & manage most of your health problems?: somewhat confident What is your race?: White Mini Mental State Exam (MMSE) Orientation What is the (year) (season) (date) (day) (month)?: year, season, date, day and month Where are we (state) (county) (town or city) (hospital) (floor)?: state, county, town or city, hospital/clinic and floor Registration Name of 3 unrelated objects clearly and slowly, then ask patient to repeat all 3 of them. (1st repeat determines score. Make sure they can repeat all three): object 1, object 2 and object 3 Attention & Calculation (CHOOSE ONE) Spell WORLD backwards (DLROW): 5 letters Recall Ask patient to repeat the 3 items from question #3.: object 1, object 2 and object 3 Language Show patient a wristwatch & ask what it is. Repeat for pencil.: watch and pencil Ask the patient to repeat the phrase 'No ifs, ands, or buts' after you.: correct Ask the patient to 'take a piece of paper with their right hand' 'fold paper in half' 'place paper on floor': take paper in right hand, fold paper in half and place paper on floor Print the sentence 'CLOSE YOUR EYES' on a piece. If patient actually closes eyes then score.: followed written direction Give patient a blank piece of paper & ask to write a sentence. Score if it contains a noun & verb.: sentence contains subject and verb Score Score: 29 Activity of Daily Living Bathing - sponge bath, tub bath or shower: receives no assistance (gets in/out by self, if usual bathing means Dressing - getting clothes from closets & drawers, including inner/outer garments & fasteners.: gets clothes & gets completely dressed without help Toileting - going to the 'toilet room' for urine/bowel elimination & cleaning self/arranging clothes: goes to toilet room, cleans self, arranges clothes without help Transfer: moves in & out of bed and chair without help (may use support object) Continence: controls urination/bowel movements completely by self Feeding: feeds self without help Total Score: 0 Information obtained from: patient Using telephone: independent Traveling: independent Shopping: independent Preparing meals: independent Housework: independent Taking medicine: independent Managing money: independent PHQ-9 Over the last 2 weeks, how often have you been bothered by any of the following problems? 1. Little interest or pleasure in doing things: not at all 2. Feeling down, depressed, or hopeless: not at all 3. Trouble falling or staying asleep, or sleeping too much: not at all 4. Feeling tired or having little energy: not at all 5. Poor appetite or overeating: not at all 6. Feeling bad about yourself - or that you are a failure or have let yourself or your family down: not at all 7. Trouble concentrating on things, such as reading the newspaper or watching television: not at all 8. Moving or speaking so slowly that other people could have noticed. Or the opposite - being so fidgety or restless that you have been moving around a lot more than usual: not at all 9. Thoughts that you would be better off or of hurting yourself in some way: not at all Total score: 0 Depression Screening Interpretation: Negative Depression Screening Done: Yes 66433 - PHQ-9 Billing: Yes Source: Developed by Drs. Howard Dillon, Shobha Casas, rAmando Gaspar and colleagues, with an educational aleah from [employer]. Review of Systems Const All systems reviewed & are unremarkable except as noted in HPI and below Eyes Reports no additional complaints ENT Reports no additional complaints Card Reports no additional complaints Resp Reports no additional complaints GI Reports no additional complaints Reports no additional complaints Physical Exam Vital Signs: Last Vital Signs Pulse 81 12/18/23 08:22 BP 96/66 12/18/23 08:22 Pulse Ox 94 12/18/23 08:22 Oxygen Delivery Method Room Air 12/18/23 08:22 BMI result Body Mass Index 21.8 Const General: no acute distress HEENT Head: Yes normal to inspection Ears: hearing grossly normal bilaterally Eyes General: appearance normal, both eyes and all related structures Neck Neck: Yes no lymphadenopathy and Yes supple Resp Effort & Inspection: normal respiratory effort Auscultation: clear to auscultation bilaterally Cardio Rhythm: regular rhythm Heart sounds: S1 normal heart sound present and S2 normal heart sound present GI Inspection: Yes normal to inspection Palpation (GI): Soft to palpation Auscultation: normal bowel sounds Extrem General: Yes no clubbing, cyanosis or edema Assessment & Plan Assessment & Plan (1) Anxiety: Code(s): F41.9 - Anxiety disorder, unspecified Plan: Continue current medications follow-up with a counselor (2) Annual physical exam: Code(s): Z00.00 - Encounter for general adult medical examination without abnormal findings Plan: Well-balanced diet regular physical activity discussed with the patient (3) Malnutrition: Code(s): E46 - Unspecified protein-calorie malnutrition Plan: Continue nutritional supplements (4) Primary biliary cholangitis: Comment: A very pleasant 66-year-old woman known to me from 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 Plan: Continue current medications, follow-up with the GI and being evaluated for another liver transplant by [facility] (5) Ascites: Code(s): R18.8 - Other ascites Plan: Improved since spironolactone was added, follow-up with the GI Quality Reporting (2019) Depression/Bipolar (159/160/161/177) PHQ-9: Total score: 0 Coding Level of Care Code Medicare Subsequent (G0439) Diagnoses Anxiety F41.9 Annual physical exam Z00.00 Malnutrition E46 Primary biliary cholangitis K74.3 Ascites R18.8 CPT Codes Advance Care Planning - Advance Care Planning discussion: On file, no changes ([id number]) Advance Care Planning - Time spent: 1-15 minutes, on File ([id number]) Advance Care Planning Advance Care Planning discussion: On file, no changes Forms completed: Health Care Proxy Time spent: 1-15 minutes, on File Did not discuss due to Cultural/Spiritual beliefs: Yes
[2023-12-18 08:22] VITALS: BP 96/66; PULSE 81; O2SAT 94; BMI 21.8
== END 2023-12-18 09:08 | disposition home or self-care (01) ==
PROVIDERS: PCP Internal Medicine; Visit Provider Internal Medicine
DX: Z00.00 Encounter for general adult medical examination without abnormal findings (principal); E46 Unspecified protein-calorie malnutrition; K74.3 Primary biliary cirrhosis; F41.9 Anxiety disorder, unspecified; R18.8 Other ascites

== ENCOUNTER → 2023-12-18 08:20 | Outpatient (BNVA) | payer MEDICARE, OTHER, SELFPAY | PROVIDERS: PCP Internal Medicine; Visit Provider Internal Medicine ==

== ENCOUNTER → 2023-12-27 07:35 | Day surgery (SDC) | payer MEDICARE, OTHER, SELFPAY ==
--- NOTE | ~2023-12-27 | US_ITS ---
EXAMINATION: US ABDOMEN LIMITED CLINICAL INFORMATION: Liver disease. COMPARISON: None available. TECHNIQUE: Real-time imaging of the 4 quadrants of the abdomen. FINDINGS: A moderate amount of ascites is present, most marked in the left lower quadrant. US/US abdomen limited IMPRESSION: Moderate ascites. Electronically signed by: Kolton Calvert MD 01/04/2024 12:45 AM EDT
--- NOTE | 2023-12-27 08:32 | PC.NURSE ---
PT INTO PREOP STATING FEELS REALLY WELL AND DOES NOT THINK SHE NEEDS THIS APPT. TC TO [facility] PA US ORDERED AND DONE PT CX FOR TODAY 2 LOW FLUID NOTED
== END ==
PROVIDERS: PCP Internal Medicine; Visit Provider Internal Medicine Gastroenterology
DX: R18.8 Other ascites (principal); K76.9 Liver disease, unspecified; Z53.8 Procedure and treatment not carried out for other reasons
CPT/HCPCS: 76705

== ENCOUNTER 2024-01-24 09:27 | Day surgery (SDC) | payer MEDICARE, OTHER, SELFPAY ==
--- NOTE | 2024-01-23 09:02 | P.CONAN_ITS ---
Documented by User: Shyann Griffin NP 01/23/24 09:05 HPI - Anesthesia Eval Consult details Narrative: 68yo F for Upper Endoscopy Cirrhosis s/p liver tx 2016. Now recurring with ascites and thrombocytopenia. Aborted second transplant d/t DVT's. Following with [facility] heme PMFSH Active Problems Active Problems: All Active Problems Grieving (Acute) Osteoporosis (Acute) Hearing loss (Acute) Encephalomalacia on imaging study (Acute) Abdominal ascites (Acute) Postmenopausal (Acute) Vitamin B6 deficiency (Acute) Annual physical exam (Acute) Malnutrition (Acute) Thrombocytopenia (Chronic) Diarrhea (Acute) Ascites (Acute) Neck pain (Acute) Anxiety (Acute) Primary biliary cholangitis (Acute) Past Medical History Medical History Stroke Fracture of fifth metatarsal bone of right foot Fracture of fourth metatarsal bone of right foot Shakes Frequent falls Ascites Anemia CHF (congestive heart failure) Pancytopenia Anxiety HTN (hypertension) Tremor Chronic diarrhea Primary biliary cholangitis Breast cancer Family History Family History Mother CAD (coronary artery disease) Sister Ovarian cancer Mental health disorder Family history of problems with anesthesia: No Surgical History Surgical History History of abdominal paracentesis Hx of sigmoidoscopy H/O wrist surgery Transplant recipient Hx of colonoscopy Hx of esophagogastroduodenoscopy H/O: hysterectomy S/P hip replacement Liver transplant recipient History of Problems with Anesthesia: No Social History Social History Household Members: Spouse Household Members Other:: , children Housing: House Do you presently have visiting nurse or other home services: No Alcohol intake: never Patient Tobacco Use Status: Former Tobacco user Tobacco use type: Cigarette e-Cigarette/Vaping Use: Never Used Second Hand Smoke Exposure: No Use of substances other than those prescribed or required for medical reasons: No Are you DNR?: No Advance Directives: No Advance Directives Information Provided: Yes Advance Directives Date on File: 12/15/22 service: No Current occupational status: retired Cognitive needs: No Hearing needs: No Vision needs: Yes Meds Allergies Allergy/AdvReac Type Severity Reaction Status Date / Time hydromorphone [From Dilaudid] Allergy Severe Hallucinati Verified 01/24/24 10:36 ons losartan Allergy Intermediate Facial Verified 01/24/24 10:36 Swelling Sulfa (Sulfonamide AdvReac Severe Rash Verified 01/24/24 10:36 Antibiotics) Home Medications ?Medication ?Instructions ?Recorded ?Confirmed ?Last Taken ?Type cholecalciferol (vitamin D3) 25 25 mcg PO DAILY 04/25/22 01/22/24 09/11/23 History mcg (1,000 unit) capsule (Vitamin D3) tacrolimus 0.5 mg capsule, 0.5 mg PO Q12H 08/22/22 01/22/24 09/11/23 History immediate-release aspirin 81 mg tablet,delayed 81 mg PO DAILY 06/13/23 01/22/24 09/11/23 History release spironolactone 50 mg tablet 50 mg PO BID 12/06/23 01/22/24 Unknown History bupropion HCl 300 mg 24 hr tablet, 450 mg PO DAILY 12/18/23 01/22/24 Unknown Hi story extended release hydroxyzine HCl 10 mg tablet 10 mg PO TID 12/18/23 01/22/24 Unknown History Exam Height,Weight and Vital Signs: Height 4 ft 11 in Pertinent Lab Results Pertinent Lab Results: Laboratory Tests 11/26/23 08:08 WBC 3.3 L Hgb 10.7 L Hct 34.0 L Plt Count 116 L Sodium 140 Potassium 4.0 D Chloride 108 Carbon Dioxide 25 BUN 22 H Creatinine 1.00 Narrative Narrative: US abdomen limited 12/2023 IMPRESSION: Moderate ascites. Assessment and Plan Assessment Anesthesia Assessment: Chart Reviewed Final Anesthetic Review Family History of Problems with Anesthesia: No History of Problems with Anesthesia: No Documented by User: Yahaira Vogel MD 01/24/24 11:44 PMFSH Past Medical History Medical History Stroke Fracture of fifth metatarsal bone of right foot Fracture of fourth metatarsal bone of right foot Shakes Frequent falls Ascites Anemia CHF (congestive heart failure) Pancytopenia Anxiety HTN (hypertension) Tremor Chronic diarrhea Primary biliary cholangitis Breast cancer Family History Family History Mother CAD (coronary artery disease) Sister Ovarian cancer Mental health disorder Surgical History Surgical History History of abdominal paracentesis Hx of sigmoidoscopy H/O wrist surgery Transplant recipient Hx of colonoscopy Hx of esophagogastroduodenoscopy H/O: hysterectomy S/P hip replacement Liver transplant recipient Social History Social History Household Members: Spouse Household Members Other:: , children Housing: House Do you presently have visiting nurse or other home services: No Alcohol intake: never Patient Tobacco Use Status: Former Tobacco user Tobacco use type: Cigarette e-Cigarette/Vaping Use: Never Used Second Hand Smoke Exposure: No Use of substances other than those prescribed or required for medical reasons: No Are you DNR?: No Advance Directives: No Advance Directives Information Provided: Yes Advance Directives Date on File: 12/15/22 service: No Current occupational status: retired Cognitive needs: No Hearing needs: No Vision needs: Yes Meds Allergies Allergy/AdvReac Type Severity Reaction Status Date / Time hydromorphone [From Dilaudid] Allergy Severe Hallucinati Verified 01/24/24 10:36 ons losartan Allergy Intermediate Facial Verified 01/24/24 10:36 Swelling Sulfa (Sulfonamide AdvReac Severe Rash Verified 01/24/24 10:36 Antibiotics) Home Medications ?Medication ?Instructions ?Recorded ?Confirmed ?Last Taken ?Type cholecalciferol (vitamin D3) 25 25 mcg PO DAILY 04/25/22 01/22/24 09/11/23 History mcg (1,000 unit) capsule (Vitamin D3) tacrolimus 0.5 mg capsule, 0.5 mg PO Q12H 08/22/22 01/22/24 09/11/23 History immediate-release aspirin 81 mg tablet,delayed 81 mg PO DAILY 06/13/23 01/22/24 09/11/23 History release spironolactone 50 mg tablet 50 mg PO BID 12/06/23 01/22/24 Unknown History bupropion HCl 300 mg 24 hr tablet, 450 mg PO DAILY 12/18/23 01/22/24 Unknown History extended release hydroxyzine HCl 10 mg tablet 10 mg PO TID 12/18/23 01/22/24 Unknown History Exam Airway Mallampati Class: II TM Dist: >3cm Heart: rrr Lungs: cta Assessment and Plan Assessment Anesthesia Assessment: Anesthesia Plan Discussed Final Anesthetic Review NPO: Yes ASA Class: III Final Preanesthetic Review: No Changes in Pt Med Stat, Meds/Allgs Chart Reviewed, Consent Obtained/Reviewed and Anes Risks/Benef Reviewed Patient Risk: Intermediate Procedure Risk: Low Anesthetic Plan Anesthetic Plan: MAC: Disposition: Standard PACU
[2024-01-24 10:37] VITALS: BMI 21.2
[2024-01-24 10:45] VITALS: BP 129/77; PULSE 83; RESP 16; TEMP 36.9; O2SAT 100
--- NOTE | 2024-01-24 10:52 | MHC.SHP ---
Pre-Procedural Eval Section A - 24 Hr Update-Section A only Date of Service: 01/24/24 Section B - Complete if H&P > 30 days Chief Complaint: Esophageal varices without bleeding Relevant Family History (Specify if Yes): No Relevant Social History: None Present Medications: see Short Stay Collaborative assessment Medical History: Significant History (Stroke Fracture of fifth metatarsal bone of right foot Fracture of fourth metatarsal bone of right foot Shakes Frequent falls Ascites Anemia CHF (congestive heart failure) Pancytopenia Anxiety HTN (hypertension) Tremor Chronic diarrhea Primary biliary cholangitis Breast cancer) History of Previous Operations: Relevant previous surgery/procedure and date(s) (History of abdominal paracentesis Hx of sigmoidoscopy H/O wrist surgery Transplant recipient Hx of colonoscopy Hx of esophagogastroduodenoscopy H/O: hysterectomy S/P hip replacement Liver transplant recipient) Allergies: Allergies Allergy/AdvReac Type Severity Reaction Status Date / Time hydromorphone [From Dilaudid] Allergy Severe Hallucinati Verified 01/24/24 10:36 ons losartan Allergy Intermediate Facial Verified 01/24/24 10:36 Swelling Sulfa (Sulfonamide AdvReac Severe Rash Verified 01/24/24 10:36 Antibiotics) Review of Systems Sugical H&P ROS: Negative: Constitution, Cardiovascular, Respiratory, Neurological, Psychiatric, Hem-Onc, Allergic/Immunologic, Gastrointestinal, Genitourinary, Musculoskeletal, Integumentary, Endocrine and Eyes/Ears/Nose/Throat Exam Surgical H&P Exam: Normal: HEENT, Normal: Heart, Normal: Lungs, Normal: Extremities, Normal: Abdomen, Normal: Skin and Normal: Neurological Plan Diagnosis/Plan: Unchanged I have reviewed the history and physical and performed a pertinent physical examination on my patient. No changes have occurred unless specified. Time Spent With Patient Time: Total time managing care of this patient today ____ minutes.
[2024-01-24] MEDS: Lactated Ringers 1,000 ML 100 ML IVCONT (11:04)
--- NOTE | 2024-01-24 12:13 | W.PM.OPN ---
Operative Note Operative Note Date of Service: 01/24/24 Narrative: Procedure Description: EGD Indication: Varices-esophageal Anesthesia: MAC FLEXIBLE TRANSORAL UPPER GASTROINTESTINAL ENDOSCOPY UPPER ENDOSCOPY Consent: Indications for the procedure and potential complications of bleeding, perforation, reaction to medications and missed diagnosis were discussed with the patient and informed consent was obtained. Instrument: Olympus GIF H 190 J mid size upper endoscope Monitoring: Vital signs and clinical assessment, continuous EKG monitoring, Pulse oximetry, Carbon Dioxide monitoring and blood pressure monitoring were done throughout the procedure. Procedure: The patient was placed in the left lateral decubitis position and pre-procedure medications were administered and a bite block was placed. The endoscope was inserted into the mouth and advanced under direct vision to the third part of duodenum. A careful inspection was made as the upper endoscope was withdrawn including a retroflexed examination of the proximal stomach; Findings and interventions are described below. Findings: Larynx:normal Esophagus: GE junction at 35 cm, diaphragm hiatus at 35 cm, one cord grade II varix and x 2 cords of grade I varices, x 2 bands applied with good collapse to the grade II varix as it had some red markings Stomach: mosaic pattern consistent with portal hypertensive gastropathy. Grade 2 flap valve on retroflexed examination of the cardia. There were also scattered erosions, bx were taken. Duodenum: Normal bulb and descending duodenum, Intervention: Variceal banding, cold forceps bx Impression/Findings: portal hypertensive gastropathy esophageal varices erosive gastritis PLAN: soft diet today and advance tomorrow GERD precautions check nsaid hx repeat EGD in about 6 weeks
[2024-01-24 12:32] VITALS: BP 122/69; PULSE 96; RESP 16; TEMP 36.3; O2SAT 100
[2024-01-24 12:47] VITALS: BP 126/85; PULSE 96; RESP 16; TEMP 36.9; O2SAT 98
== END 2024-01-24 13:22 | disposition home or self-care (01) ==
PROVIDERS: PCP Internal Medicine; Visit Provider Internal Medicine Gastroenterology
PROC: 0DJ08ZZ Inspection of Upper Intestinal Tract, Via Natural or Artificial Opening Endoscopic (ICD-10-PCS; CPT 43235; principal; 2024-01-24 12:10)
DX: I85.00 Esophageal varices without bleeding (principal); K74.60 Unspecified cirrhosis of liver; R18.8 Other ascites; Z94.4 Liver transplant status; K29.50 Unspecified chronic gastritis without bleeding; K76.6 Portal hypertension; K31.89 Other diseases of stomach and duodenum; K44.9 Diaphragmatic hernia without obstruction or gangrene; D61.818 Other pancytopenia; I11.0 Hypertensive heart disease with heart failure; I50.9 Heart failure, unspecified; Z86.73 Personal history of transient ischemic attack (TIA), and cerebral infarction without residual deficits; Z85.3 Personal history of malignant neoplasm of breast; Z91.81 History of falling; Z79.82 Long term (current) use of aspirin; Z79.899 Other long term (current) drug therapy; Z88.2 Allergy status to sulfonamides; Z88.8 Allergy status to other drugs, medicaments and biological substances; Z87.891 Personal history of nicotine dependence; Z98.890 Other specified postprocedural states
CPT/HCPCS: 43244; 43239; 88305; 88313; 88342; J2003; J2704

== ENCOUNTER → 2024-01-24 09:27 | Outpatient (BNV) | payer MEDICARE, OTHER, SELFPAY | PROVIDERS: PCP Internal Medicine; Visit Provider Internal Medicine Gastroenterology | DX: K74.60 Unspecified cirrhosis of liver (principal); I85.00 Esophageal varices without bleeding; K29.70 Gastritis, unspecified, without bleeding | CPT/HCPCS: 43239; 43244 ==

== ENCOUNTER 2024-02-08 09:01 | Outpatient (AMB) | payer MEDICARE, OTHER, SELFPAY ==
--- NOTE | 2024-02-08 09:04 | A.OFFVIS_ITS ---
Vital Signs 02/08/24 09:07 Height 4 ft 11 in Weight 149 lb 14.629 oz BMI 30.3 BP 111/73 Blood Pressure Location Lt brachial Position Sitting Pulse 84 Intake Visit Reasons: S/P EGD; Dr. Galloway Intake Note: Praveena presents in the office as a follow up EGD. CC: She is here today for EGD results - does not need paracentesis as much as before and feels a lot better. Press Cutter Required: No Allergies hydromorphone [From Dilaudid] Allergy (Severe, Verified 02/08/24 09:08) Hallucinations losartan Allergy (Intermediate, Verified 02/08/24 09:08) Facial Swelling Sulfa (Sulfonamide Antibiotics) Adverse Reaction (Severe, Verified 02/08/24 09:08) Rash HPI HPI S/P EGD; Dr. Galloway: Details: 68 yr old f here for follow up RECAP: She had been seen In GI clinic for investigation of diarrhea with negative studies,including endoscopies and pathology, stool tests, lab work. CTe suggested focal ileitis but capsule endoscopy was negative. Meantime Karen had reduced tacrolimus dose and I gave her colvesalam which helped her diarrhea a lot In the interim she was noted to have ascites and had been c/o LUQ pain for 1 year which was worse with food and position as well as breathing and coughing. Ascitic tap was arranged with 1.4 L removed. Studies revealed SAAG 1.8 and pos cell count for SBP with culture neg samples. She had no fever so she was given PO cipro but repeat labs revealed rising CRP and she had ongoing sx she was advised to come in for further treatment. Labs: WCC of 3.9, hemoglobin of 10.5, hematocrit of 32.8, INR of 1.2, CRP of 5.58, total bili of 1.4, AST of 40, alk-phos of 187, ALT of 27, albumin of 3.4. UA shows leukocyte Estrace Abdomen pelvic CT: no acute intra-abdominal process, cirrhosis and evidence of portal hypertension with splenomegaly and moderate volume ascites, small right pleural effusion She has been given albumin and IV rocephin Repeat labs with increasing CRP and increasing WCC in ascitic fluid despite meropenam use. cultures for bacteria, fungi and TB were negative, ID recommended stopping antibiotics. I suspected maybe she had worsening ileitis which may have been causing the ascitic fluid findings and high CRP, so she had CTe which was unrevealing. changed to [facility] d/c'ed on budesonide Stool PCR GI panel and c diff were negative she was admitted with cough and sputum 03/2022 Imaging revealed right sided pleural effusion, and moderate ascites. Paracentesis revealed possible SBP with pos cell count 365 but this has actually improved from before. She has been taking budesonide as well for possible enteritis, as previous raised ascitic cell count thought to be due to possible enteritis. Pleural fluid was neg for infection. I applied for entyvio and she got it for short while INTERIM: she is doing much better with aldactone not requiring further paracentesis she is eating a lot, good appetite no bowel complaints no abdominal pain she is seeing [facility], going to see vascular and get venogram EXAM: GENERAL: The patient is tremulous, VITAL SIGNS:see workflow HEENT: Nonicteric sclerae, PERRLA, EOMI. Oropharynx clear. Moist mucous membranes. Conjunctivae appear well perfused. No thyroid mass. CHEST: Chest wall is nontender. HEART: Regular rate and rhythm without murmurs. LUNGS: Clear to auscultation bilaterally. ABDOMEN: Soft, positive bowel sounds, tender epigastrium, no organomegaly.no flank tenderness- --scar noted from transplant SKIN: No rash, + bruising, petechiae, or purpura. NEUROLOGIC: Cranial nerves II-XII intact without motor/sensory deficit. tremor, nystagmus A/P: 1/ fraility, decompensation related to her liver disease 2/ recurrent ascites, with high SAAG supportive of portal HTN, improved with aldactone and lasix, 3/ encephalopathy with tremor, slurred speech, blurred, vision --being Ix by neuro 4/ nutrition defcn, tashia severe Vit a and b6 defc--on supplements PLAN: 1/ cont lasix 40 mg and aldactone 50 mg 2/ cont to hold entyvio 3/ cont with zinc and other supplements, 4/ varices-- needs f/u EGD 5/ f/u [facility] 6/ US q 6 months [facility] Medical History Stroke Fracture of fifth metatarsal bone of right foot Fracture of fourth metatarsal bone of right foot Shakes Frequent falls Ascites Anemia CHF (congestive heart failure) Pancytopenia Anxiety HTN (hypertension) Tremor Chronic diarrhea Primary biliary cholangitis Breast cancer Surgical History History of abdominal paracentesis Hx of sigmoidoscopy H/O wrist surgery Transplant recipient Hx of colonoscopy Hx of esophagogastroduodenoscopy H/O: hysterectomy S/P hip replacement Liver transplant recipient Family History Mother CAD (coronary artery disease) Sister Ovarian cancer Mental health disorder Social History Household Members: Spouse Household Members Other:: , children Housing: House Do you presently have visiting nurse or other home services: No Alcohol intake: never Patient Tobacco Use Status: Former Tobacco user Tobacco use type: Cigarette e-Cigarette/Vaping Use: Never Used Second Hand Smoke Exposure: No Advance Directives Date on File: 12/15/22 service: No Current occupational status: retired Cognitive needs: No Hearing needs: No Vision needs: Yes Physical Exam Vital Signs: Last Vital Signs Pulse 84 02/08/24 09:07 BP 111/73 02/08/24 09:07 BMI result Body Mass Index 30.3 Assessment & Plan Assessment & Plan (1) Ascites: Code(s): R18.8 - Other ascites Category: Medical Qualifiers: Ascites type: other type Qualified Code(s): R18.8 - Other ascites Plan: see above Coding Level of Care Code Est Pt Level 3 (37686) Diagnoses Other ascites R18.8 Ascites type: other type
[2024-02-08 09:07] VITALS: BP 111/73; PULSE 84; BMI 30.3
== END 2024-02-08 09:42 | disposition home or self-care (01) ==
PROVIDERS: PCP Internal Medicine; Visit Provider Internal Medicine Gastroenterology
DX: R18.8 Other ascites (principal)
CPT/HCPCS: 99213

== ENCOUNTER → 2024-02-08 09:01 | Outpatient (BNVA) | payer MEDICARE, OTHER, SELFPAY | PROVIDERS: PCP Internal Medicine; Visit Provider Internal Medicine Gastroenterology | DX: R18.8 Other ascites (principal) | CPT/HCPCS: 99212 ==

== ENCOUNTER 2024-02-18 12:22 | Day surgery (SDC) | payer MEDICARE, OTHER, SELFPAY ==
[2024-02-18 13:22] VITALS: BP 127/76; PULSE 88; RESP 18; TEMP 36.7; O2SAT 97
--- NOTE | 2024-02-18 13:25 | P.CONAN_ITS ---
Documented by User: Shyann Griffin NP 02/14/24 12:19 HPI - Anesthesia Eval Consult details Narrative: 68yo F for Upper Endoscopy s/p EGD with variceal banding 01/2024 with TIVA Cirrhosis s/p liver tx 2015. Now recurring with ascites and thrombocytopenia. Aborted second transplant d/t DVT's. Following with [facility] heme PMFSH Active Problems Active Problems: All Active Problems Grieving (Acute) Osteoporosis (Acute) Hearing loss (Acute) Encephalomalacia on imaging study (Acute) Abdominal ascites (Acute) Postmenopausal (Acute) Vitamin B6 deficiency (Acute) Annual physical exam (Acute) Malnutrition (Acute) Thrombocytopenia (Chronic) Diarrhea (Acute) Ascites (Acute) Neck pain (Acute) Anxiety (Acute) Primary biliary cholangitis (Acute) Past Medical History Medical History Stroke Fracture of fifth metatarsal bone of right foot Fracture of fourth metatarsal bone of right foot Shakes Frequent falls Ascites Anemia CHF (congestive heart failure) Pancytopenia Anxiety HTN (hypertension) Tremor Chronic diarrhea Primary biliary cholangitis Breast cancer Family History Family History Mother CAD (coronary artery disease) Sister Ovarian cancer Mental health disorder Family history of problems with anesthesia: No Surgical History Surgical History History of abdominal paracentesis Hx of sigmoidoscopy H/O wrist surgery Transplant recipient Hx of colonoscopy Hx of esophagogastroduodenoscopy H/O: hysterectomy S/P hip replacement Liver transplant recipient History of Problems with Anesthesia: No Social History Social History Household Members: Spouse Household Members Other:: , children Housing: House Do you presently have visiting nurse or other home services: No Alcohol intake: never Patient Tobacco Use Status: Former Tobacco user Tobacco use type: Cigarette e-Cigarette/Vaping Use: Never Used Second Hand Smoke Exposure: No Advance Directives: No Advance Directives Information Provided: Yes Advance Directives Date on File: 12/15/22 service: No Current occupational status: retired Cognitive needs: No Hearing needs: No Vision needs: Yes Meds Allergies Allergy/AdvReac Type Severity Reaction Status Date / Time hydromorphone [From Dilaudid] Allergy Severe Hallucinati Verified 02/08/24 09:08 ons losartan Allergy Intermediate Facial Verified 02/08/24 09:08 Swelling Sulfa (Sulfonamide AdvReac Severe Rash Verified 02/08/24 09:08 Antibiotics) Home Medications ?Medication ?Instructions ?Recorded ?Confirmed ?Last Taken ?Type cholecalciferol (vitamin D3) 25 25 mcg PO DAILY 04/25/22 01/22/24 09/11/23 History mcg (1,000 unit) capsule (Vitamin D3) tacrolimus 0.5 mg capsule, 0.5 mg PO Q12H 08/22/22 01/22/24 09/11/23 History immediate-release aspirin 81 mg tablet,delayed 81 mg PO DAILY 06/13/23 01/22/24 09/11/23 History release spironolactone 50 mg tablet 50 mg PO BID 12/06/23 01/22/24 Unknown History bupropion HCl 300 mg 24 hr tablet, 450 mg PO DAILY 12/18/23 01/22/24 Unknown History extended release hydroxyzine HCl 10 mg tablet 10 mg PO TID 12/18/23 01/22/24 Unknown History Exam Pertinent Lab Results Pertinent Lab Results: Laboratory Tests 11/26/23 08:08 WBC 3.3 L Hgb 10.7 L Hct 34.0 L Plt Count 116 L Sodium 140 Potassium 4.0 D Chloride 108 Carbon Dioxide 25 BUN 22 H Creatinine 1.00 Laboratory Tests 11/26/23 08:08 PT 14.1 H INR 1.2 H Narrative Narrative: US abdomen limited 12/2023 IMPRESSION: Moderate ascites. Assessment and Plan Assessment Anesthesia Assessment: Chart Reviewed Final Anesthetic Review Family History of Problems with Anesthesia: No History of Problems with Anesthesia: No Documented by User: Stefanie Davey DO 02/18/24 13:27 [facility] Past Medical History Medical History Stroke Fracture of fifth metatarsal bone of right foot Fracture of fourth metatarsal bone of right foot Shakes Frequent falls Ascites Anemia CHF (congestive heart failure) Pancytopenia Anxiety HTN (hypertension) Tremor Chronic diarrhea Primary biliary cholangitis Breast cancer Family History Family History Mother CAD (coronary artery disease) Sister Ovarian cancer Mental health disorder Family history of problems with anesthesia: No Surgical History Surgical History History of abdominal paracentesis Hx of sigmoidoscopy H/O wrist surgery Transplant recipient Hx of colonoscopy Hx of esophagogastroduodenoscopy H/O: hysterectomy S/P hip replacement Liver transplant recipient History of Problems with Anesthesia: No Social History Social History Household Members: Spouse Household Members Other:: , children Housing: House Do you presently have visiting nurse or other home services: No Alcohol intake: never Patient Tobacco Use Status: Former Tobacco user Tobacco use type: Cigarette e-Cigarette/Vaping Use: Never Used Second Hand Smoke Exposure: No Advance Directives: No Advance Directives Information Provided: Yes Advance Directives Date on File: 12/15/22 service: No Current occupational status: retired Cognitive needs: No Hearing needs: No Vision needs: Yes Meds Allergies Allergy/AdvReac Type Severity Reaction Status Date / Time hydromorphone [From Dilaudid] Allergy Severe Hallucinati Verified 02/08/24 09:08 ons losartan Allergy Intermediate Facial Verified 02/08/24 09:08 Swelling Sulfa (Sulfonamide AdvReac Severe Rash Verified 02/08/24 09:08 Antibiotics) Home Medications ?Medication ?Instructions ?Recorded ?Confirmed ?Last Taken ?Type cholecalciferol (vitamin D3) 25 25 mcg PO DAILY 04/25/22 01/22/24 09/11/23 History mcg (1,000 unit) capsule (Vitamin D3) tacrolimus 0.5 mg capsule, 0.5 mg PO Q12H 08/22/22 01/22/24 09/11/23 History immediate-release aspirin 81 mg tablet,delayed 81 mg PO DAILY 06/13/23 01/22/24 09/11/23 History release spironolactone 50 mg tablet 50 mg PO BID 12/06/23 01/22/24 Unknown History bupropion HCl 300 mg 24 hr tablet, 450 mg PO DAILY 12/18/23 01/22/24 Unknown History extended release hydroxyzine HCl 10 mg tablet 10 mg PO TID 12/18/23 01/22/24 Unknown History Exam Exam Date and Time: 02/18/24 1325 Height,Weight and Vital Signs: Vital Signs Temperature 98.1 F 02/18/24 13:22 Pulse Rate 88 02/18/24 13:22 Respiratory Rate 18 02/18/24 13:22 Blood Pressure 127/76 02/18/24 13:22 Pulse Oximetry 97 02/18/24 13:22 Oxygen Delivery Method Room Air 02/18/24 13:22 Temperature 98.1 F 02/18/24 13:22 Pulse Rate 88 02/18/24 13:22 Respiratory Rate 18 02/18/24 13:22 Blood Pressure 127/76 02/18/24 13:22 Pulse Oximetry 97 02/18/24 13:22 Oxygen Delivery Method Room Air 02/18/24 13:22 Airway Mallampati Class: II TM Dist: >3cm Neck ROM: Full Loose/Missing/Broken Teeth: No (patient denies any loose or broken teeth) Heart: S1S2 Lungs: CTAB Assessment and Plan Assessment Anesthesia Assessment: Anesthesia Plan Discussed and Chart Reviewed Final Anesthetic Review Family History of Problems with Anesthesia: No History of Problems with Anesthesia: No NPO: Yes ASA Class: III Final Preanesthetic Review: No Changes in Pt Med Stat, Meds/Allgs Chart Reviewed, Consent Obtained/Reviewed and Anes Risks/Benef Reviewed Patient Risk: Intermediate Procedure Risk: Low Anesthetic Plan Anesthetic Plan: MAC: and Agree w/ Assess. and Plan Disposition: Standard PACU
--- NOTE | 2024-02-18 13:41 | MHC.SHP ---
Pre-Procedural Eval Section A - 24 Hr Update-Section A only Date of Service: 02/18/24 The patient is an INPATIENT: No The patient has been examined within 24 hours of the surgical procedure. The History & Physical has been completed within 30 days and I have reviewed it.: Yes Section B - Complete if H&P > 30 days Chief Complaint: Esophageal varices without bleeding Allergies: Allergies Allergy/AdvReac Type Severity Reaction Status Date / Time hydromorphone [From Dilaudid] Allergy Severe Hallucinati Verified 02/18/24 13:37 ons losartan Allergy Intermediate Facial Verified 02/18/24 13:37 Swelling Sulfa (Sulfonamide AdvReac Severe Rash Verified 02/18/24 13:37 Antibiotics) Plan I have reviewed the history and physical and performed a pertinent physical examination on my patient. No changes have occurred unless specified. Time Spent With Patient Time: Total time managing care of this patient today ____ minutes.
[2024-02-18] MEDS: Lactated Ringers 1,000 ML 50 ML IVCONT (13:46)
[2024-02-18 13:47] VITALS: BMI 22.2
--- NOTE | 2024-02-18 14:05 | W.PM.OPN ---
Operative Note Operative Note Date of Service: 02/18/24 Narrative: Procedure Description: EGD Indication: [] Anesthesia: MAC FLEXIBLE TRANSORAL UPPER GASTROINTESTINAL ENDOSCOPY UPPER ENDOSCOPY Consent: Indications for the procedure and potential complications of bleeding, perforation, reaction to medications and missed diagnosis were discussed with the patient and informed consent was obtained. Instrument: Olympus GIF H 190 J mid size upper endoscope Monitoring: Vital signs and clinical assessment, continuous EKG monitoring, Pulse oximetry, Carbon Dioxide monitoring and blood pressure monitoring were done throughout the procedure. Procedure: The patient was placed in the left lateral decubitis position and pre-procedure medications were administered and a bite block was placed. The endoscope was inserted into the mouth and advanced under direct vision to the third part of duodenum. A careful inspection was made as the upper endoscope was withdrawn including a retroflexed examination of the proximal stomach; Findings and interventions are described below. Findings: Larynx:normal Esophagus: GE junction at 35 cm, diaphragm hiatus at 35 cm, x 2 cords of grade I varices without high risk gutiérrez Stomach: mosaic pattern consistent with portal hypertensive gastropathy. Retained food noted. Duodenum: not intubated Intervention: none Impression/Findings: portal hypertensive gastropathy esophageal varices PLAN: repeat EGD in about 3-6 months
[2024-02-18 14:06] VITALS: BP 108/62; PULSE 90; RESP 16; TEMP 37; O2SAT 96
[2024-02-18 14:23] VITALS: BP 113/65; PULSE 103; RESP 17; TEMP 36.7; O2SAT 100
== END 2024-02-18 14:52 | disposition home or self-care (01) ==
PROVIDERS: PCP Internal Medicine; Visit Provider Internal Medicine Gastroenterology
PROC: 0DJ08ZZ Inspection of Upper Intestinal Tract, Via Natural or Artificial Opening Endoscopic (ICD-10-PCS; CPT 43235; principal; 2024-02-18 13:30)
DX: I85.00 Esophageal varices without bleeding (principal); K52.9 Noninfective gastroenteritis and colitis, unspecified; R18.8 Other ascites; Z94.4 Liver transplant status; K76.6 Portal hypertension; K31.89 Other diseases of stomach and duodenum; K74.3 Primary biliary cirrhosis; K44.9 Diaphragmatic hernia without obstruction or gangrene; R79.82 Elevated C-reactive protein (CRP); I11.0 Hypertensive heart disease with heart failure; I50.9 Heart failure, unspecified; J90 Pleural effusion, not elsewhere classified; D64.9 Anemia, unspecified; F41.8 Other specified anxiety disorders; Z86.73 Personal history of transient ischemic attack (TIA), and cerebral infarction without residual deficits; Z85.3 Personal history of malignant neoplasm of breast; Z79.899 Other long term (current) drug therapy; Z88.2 Allergy status to sulfonamides; Z88.8 Allergy status to other drugs, medicaments and biological substances; Z98.890 Other specified postprocedural states; Z96.643 Presence of artificial hip joint, bilateral; Z87.891 Personal history of nicotine dependence
CPT/HCPCS: 43235; J2003; J2704

== ENCOUNTER → 2024-02-18 12:22 | Outpatient (BNV) | payer MEDICARE, OTHER, SELFPAY | PROVIDERS: PCP Internal Medicine; Visit Provider Internal Medicine Gastroenterology | DX: K31.89 Other diseases of stomach and duodenum (principal); I85.00 Esophageal varices without bleeding | CPT/HCPCS: 43235 ==

== ENCOUNTER 2024-02-25 08:56 | Outpatient (AMB) | payer MEDICARE, OTHER, SELFPAY ==
--- NOTE | 2024-02-25 09:02 | AM.OFFVISNUR ---
Intake Visit Reasons: HPYLORI Intake Note: Patient presents for collection of H Pylori breath test. Patient has been fasting for 1 hour (nothing to eat, drink, no chewing gum or smoking) has not taken any antacid medication for at least 2 weeks and has no allergies to artificial sweeteners.?? Allergies hydromorphone [From Dilaudid] Allergy (Severe, Verified 02/18/24 13:37) Hallucinations losartan Allergy (Intermediate, Verified 02/18/24 13:37) Facial Swelling Sulfa (Sulfonamide Antibiotics) Adverse Reaction (Severe, Verified 02/18/24 13:37) Rash Assessment & Plan Assessment & Plan (1) Abdominal ascites: Comment: Due to liver failure, status post liver transplant failure for primary biliary choleangitis Code(s): R18.8 - Other ascites Category: Medical Qualifiers: Ascites type: other type Qualified Code(s): R18.8 - Other ascites (2) Ascites: Code(s): R18.8 - Other ascites Category: Medical Qualifiers: Ascites type: other type Qualified Code(s): R18.8 - Other ascites (3) Diarrhea: Code(s): R19.7 - Diarrhea, unspecified Category: Medical Plan Patient presents for collection of H Pylori breath test. Patient has been fasting for 1 hour (nothing to eat, drink, no chewing gum or smoking) has not taken any antacid medication for at least 2 weeks and has no allergies to artificial sweeteners.???This test checks for an overgrowth of bacteria in your stomach. We all have bacteria but some may have more than others. It is treatable. if the test comes back negative there is nothing else to do. If the test result is positive we will treat you with 2 antibiotics and a medication to decrease the acid in your stomach (PPI) for 2 weeks. Two weeks after you have completed the treatment we will retest you to make sure the overgrowth has resolved. Patient Instructions: Process for specimen collection and reason for testing was explained to the patient. Specimen collection. Patient instructed to take a deep breath and then exhale into the blue bag, filling it up as much as possible. Patient instructed to drink a mixture of water and the artificial sweetener with a straw. A 15 minute wait period was observed. Patient instructed to take a deep breath and then exhale into the pink bag, filling it up as much as possible.??
== END 2024-02-25 09:26 | disposition home or self-care (01) ==
PROVIDERS: PCP Internal Medicine; Visit Provider Internal Medicine Gastroenterology
DX: R18.8 Other ascites (principal); R19.7 Diarrhea, unspecified

== ENCOUNTER 2024-02-25 08:56 | Outpatient (REF) | payer MEDICARE, OTHER, SELFPAY ==
[2024-02-27 15:16] LABS: H Pylori Breath Test Positive (Negative)
== END 2024-02-25 08:57 | disposition home or self-care (01) ==
LOC: HO.LNP 08:56
PROVIDERS: PCP Internal Medicine; Visit Provider Internal Medicine Gastroenterology
DX: R19.7 Diarrhea, unspecified (principal)
CPT/HCPCS: 83013; 99211

== ENCOUNTER 2024-03-03 12:52 | Outpatient (AMB) | payer MEDICARE, OTHER, SELFPAY ==
--- NOTE | 2024-03-03 13:14 | MHC.OFFVIS ---
Vital Signs 03/03/24 13:21 Height 4 ft 11 in Weight 108 lb 0.424 oz BMI 21.8 BP 115/63 Blood Pressure Location Lt brachial Position Sitting Pulse 91 Intake Visit Reasons: S/P EGD; Dr. Galloway Intake Note: Praveena presents in the office as a follow up EGD. CC: She states that her stomach is still bothering her and its hard to eat. Her stomach gets upset all the time and after thanksgiving she has been having a cramping/squeezing type of feeling. Sql Server Bi Developer Required: No Allergies hydromorphone [From Dilaudid] Allergy (Severe, Verified 03/03/24 13:21) Hallucinations losartan Allergy (Intermediate, Verified 03/03/24 13:21) Facial Swelling Sulfa (Sulfonamide Antibiotics) Adverse Reaction (Severe, Verified 03/03/24 13:21) Rash HPI HPI S/P EGD; Dr. Galloway: Details: 68 yr old f here for follow up RECAP: She had been seen In GI clinic for investigation of diarrhea with negative studies,including endoscopies and pathology, stool tests, lab work. CTe suggested focal ileitis but capsule endoscopy was negative. Meantime Karen had reduced tacrolimus dose and I gave her colvesalam which helped her diarrhea a lot In the interim she was noted to have ascites and had been c/o LUQ pain for 1 year which was worse with food and position as well as breathing and coughing. Ascitic tap was arranged with 1.4 L removed. Studies revealed SAAG 1.8 and pos cell count for SBP with culture neg samples. She had no fever so she was given PO cipro but repeat labs revealed rising CRP and she had ongoing sx she was advised to come in for further treatment. Labs: WCC of 3.9, hemoglobin of 10.5, hematocrit of 32.8, INR of 1.2, CRP of 5.58, total bili of 1.4, AST of 40, alk-phos of 187, ALT of 27, albumin of 3.4. UA shows leukocyte Estrace Abdomen pelvic CT: no acute intra-abdominal process, cirrhosis and evidence of portal hypertension with splenomegaly and moderate volume ascites, small right pleural effusion She has been given albumin and IV rocephin Repeat labs with increasing CRP and increasing WCC in ascitic fluid despite meropenam use. cultures for bacteria, fungi and TB were negative, ID recommended stopping antibiotics. I suspected maybe she had worsening ileitis which may have been causing the ascitic fluid findings and high CRP, so she had CTe which was unrevealing. changed to [facility] d/c'ed on budesonide Stool PCR GI panel and c diff were negative she was admitted with cough and sputum 03/2022 Imaging revealed right sided pleural effusion, and moderate ascites. Paracentesis revealed possible SBP with pos cell count 365 but this has actually improved from before. She has been taking budesonide as well for possible enteritis, as previous raised ascitic cell count thought to be due to possible enteritis. Pleural fluid was neg for infection. I applied for entyvio and she got it for short while but then stopped She went to [facility] for second opinion, being reassessed, got aldactone whcih helped her ascites! Recent EGD 02/23- no sig varices, gastritis, H plyori pos INTERIM: she is doing much better with aldactone not requiring further paracentesis as before she does have nausea and epigastric pain discussed h pylori treatment following up with [facility] EXAM: GENERAL: The patient is tremulous, VITAL SIGNS:see workflow HEENT: Nonicteric sclerae, PERRLA, EOMI. Oropharynx clear. Moist mucous membranes. Conjunctivae appear well perfused. No thyroid mass. CHEST: Chest wall is nontender. HEART: Regular rate and rhythm without murmurs. LUNGS: Clear to auscultation bilaterally. ABDOMEN: Soft, positive bowel sounds, tender epigastrium, no organomegaly.no flank tenderness- --scar noted from transplant SKIN: No rash, + bruising, petechiae, or purpura. NEUROLOGIC: Cranial nerves II-XII intact without motor/sensory deficit. tremor, nystagmus A/P: 1/ fraility, decompensation related to her liver disease 2/ recurrent ascites, with high SAAG supportive of portal HTN, improved with aldactone and lasix, 3/ encephalopathy with tremor, slurred speech, blurred, vision --better 4/ nutrition defcn, tashia severe Vit a and b6 defc--on supplements PLAN: 1/ cont lasix 40 mg and aldactone 50 mg 2/ h pylori triple therapy for 2 weeks then ELLIOT 3/ cont with zinc and other supplements, 4/ varices-- needs f/u EGD in 6 months 5/ f/u [facility] 6/ US q 6 months [facility] Medical History Stroke Fracture of fifth metatarsal bone of right foot Fracture of fourth metatarsal bone of right foot Shakes Frequent falls Ascites Anemia CHF (congestive heart failure) Pancytopenia Anxiety HTN (hypertension) Tremor Chronic diarrhea Primary biliary cholangitis Breast cancer Surgical History History of abdominal paracentesis Hx of sigmoidoscopy H/O wrist surgery Transplant recipient Hx of colonoscopy Hx of esophagogastroduodenoscopy H/O: hysterectomy S/P hip replacement Liver transplant recipient Family History Mother CAD (coronary artery disease) Sister Ovarian cancer Mental health disorder Social History Household Members: Spouse Household Members Other:: , children Housing: House Are you a primary career technology teacher to a significant other at home: No Do you presently have visiting nurse or other home services: No Alcohol intake: never Patient Tobacco Use Status: Former Tobacco user Tobacco use type: Cigarette e-Cigarette/Vaping Use: Never Used Second Hand Smoke Exposure: No Advance Directives Date on File: 12/15/22 service: No Current occupational status: retired Cognitive needs: No Hearing needs: No Vision needs: Yes Physical Exam Vital Signs: Last Vital Signs Pulse 91 03/03/24 13:21 BP 115/63 03/03/24 13:21 BMI result Body Mass Index 21.8 Assessment & Plan Assessment & Plan (1) Primary biliary cholangitis: Comment: A very pleasant 66-year-old woman known to me from [facility] with history of liver transplant -PBC Recent liver biopsy shows recurrent PBC Code(s): K74.3 - Primary biliary cirrhosis Category: Medical Plan: see above Medications: New amoxicillin 1,000 mg (2 x 500 mg) PO BID 2 weeks 56 caps 0RF levofloxacin 500 mg PO DAILY 14 tabs 0RF Coding Level of Care Code Est Pt Level 4 (75785) Diagnoses Primary biliary cholangitis K74.3
[2024-03-03 13:21] VITALS: BP 115/63; PULSE 91; BMI 21.8
== END 2024-03-03 13:56 | disposition home or self-care (01) ==
PROVIDERS: PCP Internal Medicine; Visit Provider Internal Medicine Gastroenterology
DX: K74.3 Primary biliary cirrhosis (principal)
CPT/HCPCS: 99214

== ENCOUNTER → 2024-03-03 12:52 | Outpatient (BNVA) | payer MEDICARE, OTHER, SELFPAY | PROVIDERS: PCP Internal Medicine; Visit Provider Internal Medicine Gastroenterology | DX: K74.3 Primary biliary cirrhosis (principal); R19.7 Diarrhea, unspecified | CPT/HCPCS: 99212 ==

== ENCOUNTER 2024-03-27 12:26 | Emergency (ER) | payer MEDICARE, OTHER, SELFPAY ==
[2024-03-27] VITALS (7 sets, daily range): BP systolic 116–141; BP diastolic 63–77; PULSE 85–104; RESP 16–18; TEMP 36.5–36.7; O2SAT 95–100; BMI 22.8
--- NOTE | ~2024-03-27 | CT_ITS ---
EXAMINATION: CTA NECK WITH CONTRAST (STROKE) CTA BRAIN WITH CONTRAST (STROKE) CLINICAL INFORMATION: ? Indeterminate infarct on CT brain COMPARISON: MRI brain on 03/21/2023 TECHNIQUE: CTA of the head and neck was performed in the axial plane from the mediastinum to the skull vertex using 70 mL Omnipaque 350 intravenous contrast. Additional reformatted multiplanar images including maximum intensity projection MIP images are generated on the CT workstation. This CT examination was performed using dose optimization techniques as appropriate, variously including the following: *Automated exposure control *Adjustment of mA and/or kV according to patient size (this includes techniques or standardized protocols for targeted exams where dose is matched to indication/reason for exam; i.e. extremities or head) *Use of iterative reconstruction technique DLP: 1406 mGy-cm FINDINGS: The degree of stenosis determined by criteria similar to NASCET. CTA NECK: Three-vessel aortic arch. The innominate and bilateral subclavian arteries are patent. The origins and cervical segments of the common carotid arteries as well as the common carotid artery bifurcations are patent bilaterally. The cervical segments of the internal carotid arteries are also patent bilaterally. The origins and cervical segments of the vertebral arteries are patent bilaterally. No hemodynamically significant stenosis, dissection, or aneurysm. The visualized branches of the external carotid arteries are unremarkable. CTA HEAD: Mild atherosclerotic calcifications of the bilateral carotid siphons. Anterior circulation: The petrous, cavernous, and supraclinoid segments of the internal carotid arteries are patent bilaterally. Hypoplastic left A1. Otherwise, the major branches of the anterior and middle cerebral arteries as well as anterior communicating artery complex are patent. No large vessel occlusion, saccular aneurysm, or dissection. Posterior circulation: The intracranial vertebral arteries are patent bilaterally. The basilar artery is normal in course and caliber. The posterior cerebral and superior cerebellar arteries arise normally from the basilar summit. Left posterior cerebral artery. No aneurysm. On delayed imaging, the venous structures demonstrate normal contrast opacification. No filling defect. No abnormal intracranial enhancement. Soft tissues: No suspicious neck mass or cervical adenopathy. Lungs: Partially imaged bilateral pleural effusions, left greater than right. Bilateral mosaic attenuation, nonspecific Bones: No acute osseous abnormality. No lytic or blastic osseous lesions. Degenerative changes of the visualized spine. CT/CT angio head neck STROKE IMPRESSION: 1. CTA head demonstrates no large vessel occlusion, saccular aneurysm, or dissection. 2. CTA neck demonstrates no hemodynamically significant stenosis, dissection, or aneurysm. Partially imaged bilateral pleural effusions with nonspecific mosaic attenuation. Electronically signed by: Kaushal Corrigan MD 03/27/2024 06:59 PM [facility]
--- NOTE | ~2024-03-27 | CT_ITS ---
EXAMINATION: CT HEAD WITHOUT CONTRAST CLINICAL INFORMATION: Dizziness, confusion. 68-year-old female. COMPARISON: 10/01/2023. TECHNIQUE: Contiguous axial imaging was performed from the skull base to vertex without intravenous administration of contrast. This CT examination was performed using dose optimization techniques as appropriate, variously including the following: *Automated exposure control *Adjustment of mA and/or kV according to patient size (this includes techniques or standardized protocols for targeted exams where dose is matched to indication/reason for exam; i.e. extremities or head) *Use of iterative reconstruction technique DLP: 570 mGy-cm FINDINGS: There is no evidence of intracranial hemorrhage or extra-axial fluid collection. There is no mass effect, or edema. No CT evidence of acute territorial infarct. Ventricles, sulci, and cisterns mildly diffusely prominent, reflecting age-related cerebral and cerebellar volume loss. No hydrocephalus. No midline shift. Mildly prominent extra-axial spaces overlying the frontal lobes, nonspecific. Negative hyperdense MCA sign. No insular ribbon sign. 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 Linear white matter infarct in the right posterior frontal lobe near the vertex, new from prior (series 2, image 36).] Of There are mild foci of periventricular, subcortical, and hemispheric deep white matter white matter hypoattenuation, in keeping with small vessel ischemic changes. The sella appears normal. Mild atheromatous calcification of the bilateral carotid siphons and V4 segments vertebral arteries bilaterally. Globes and orbital contents image normally. Bilateral lens replacements. No extracranial soft tissue abnormalities. The paranasal sinuses, mastoid air cells, and tympanic cavities are normally aerated. No suspicious bony abnormalities. Moderate degenerative changes in the right greater than left TM joints. CT/CT head/brain wo IV con IMPRESSION: 1. There is no acute intracranial abnormality. No intracranial hemorrhage or mass effect. There is no CT evidence of acute territorial infarct. 2. There is a new small linear appearing region of white matter infarction in the high right frontal lobe, not present previously in suspect for a infarct occurring since 10/01/2023. Embolic phenomenon not excluded. 3. There is an old right parietal infarct, unchanged. 3. There is age-related cerebral and cerebellar involutional changes. There are prominent extra-axial spaces overlying the frontal convexities. Electronically signed by: Jaron Agarwal MD 03/27/2024 01:24 PM [facility]
--- OUTSIDE RECORDS SUMMARY | 2024-03-27 12:29 | XMS_ITS | Continuity of Care Document ---
Author Name [facility] Organization [facility] Care Team Providers Care Tube Rebuilder Name Role Phone [facility] Unavailable Unavailable Medications Combined list of outpatient medications from Department of Defense and Veterans Affairs facilities.Medications provided include 1) outpatient medications from the last 15 months, and 2) patient-reported medications. Medication Details Route Status Patient Instructions Prescription Expires Prescription Number Last Dispense Date Ordering Provider Order Date Order Qty Source NICHELLE AEROSOL CLOUD ENHANCER (inhaler, assist devices), SPACER, MISCELL, MYLAN SPECIALTY, 1 ea. BOX Cancele d [id number] : 2023 0 Pharmac y Data Transac tion Service Facilit y NICHELLE AEROSOL CLOUD ENHANCER (inhaler, assist devices), SPACER, MISCELL, MYLAN SPECIALTY, 1 ea. BOX Cancele d [id number] : 2023 0 Pharmac y Data Transac tion Service Facilit y NICHELLE AEROSOL CLOUD ENHANCER (inhaler, assist devices), SPACER, MISCELL, MYLAN SPECIALTY, 1 ea. BOX Active [id number] 2023 1 Pharmac y Data Transac tion Service Facilit y ALBUTEROL SULFATE HFA (albuterol sulfate), 90 MCG, HFA AER AD, INHALATION, [employer] 6.7 g CANISTER Cancele d [id number] : 2023 0 Pharmac y Data Transac tion Service Facilit y ALBUTEROL SULFATE HFA (albuterol sulfate), 90 MCG, HFA AER AD, INHALATION, [employer] 6.7 g CANISTER Active [id number] 2023 6.7 Pharmac y Data Transac tion Service Facilit y ALBUTEROL SULFATE HFA (albuterol sulfate), 90 MCG, HFA AER AD, INHALATION, [facility], 6.7 g CANISTER Cancele d [id number] : 2023 0 Pharmac y Data Transac tion Service Facilit y ALENDRONATE SODIUM (alendronat e sodium), 70 MG, TABLET, ORAL, RISING PHARM, 4 ea. BLIST PACK Active [id number] 2023 12 Pharmac y Data Transac tion Service Facilit y AMOXICILLIN (AMOXICILLI N), 500 MG, CAPSULE, ORAL, AUROBINDO PHARM, 500 ea. BOTTLE Cancele d [id number] : 2023 0 Pharmac y Data Transac tion Service Facilit y AMOXICILLIN (AMOXICILLI N), 500 MG, CAPSULE, ORAL, AUROBINDO PHARM, 500 ea. BOTTLE Active [id number] 2023 4 Pharmac y Data Transac tion Service Facilit y BUPROPION XL (bupropion HCl), 300 MG, TAB ER 24H, ORAL, LUPIN PHARMACEU, 500 ea. BOTTLE Cancele d [id number] : 2023 0 Pharmac y Data Transac tion Service Facilit y BUPROPION XL (bupropion HCl), 300 MG, TAB ER 24H, ORAL, LUPIN PHARMACEU, 500 ea. BOTTLE Active [id number] 2023 90 Pharmac y Data Transac tion Service Facilit y BUPROPION XL (bupropion HCl), 300 MG, TAB ER 24H, ORAL, LUPIN PHARMACEU, 500 ea. BOTTLE Cancele d [id number] : 2022 0 Pharmac y Data Transac tion Service Facilit y BUPROPION XL (bupropion HCl), 300 MG, TAB ER 24H, ORAL, [place] [employer]ARM, 500 ea. BOTTLE Cancele d [id number] : 2022 0 Pharmac y Data Transac tion Service Facilit y CEFUROXIME (CEFUROXIME AXETIL), 500 MG, TABLET, ORAL, AUROBINDO PHARM, 20 ea. BOTTLE Active [id number] 2023 24 Pharmac y Data Transac tion Service Facilit y COLESEVELAM HCL (colesevela m HCl), 625 MG, TABLET, ORAL, JAEL PHARMAC, 180 ea. BOTTLE Cancele d [id number] : 2023 0 Pharmac y Data Transac tion Service Facilit y COLESEVELAM HCL (colesevela m HCl), 625 MG, TABLET, ORAL, JAEL PHARMAC, 180 ea. BOTTLE Cancele d [id number] : 2022 0 Pharmac y Data Transac tion Service Facilit y COLESEVELAM HCL (colesevela m HCl), 625 MG, TABLET, ORAL, JAEL PHARMAC, 180 ea. BOTTLE Active [id number] 2022 360 Pharmac y Data Transac tion Service Facilit y COLESEVELAM HCL (colesevela m HCl), 625 MG, TABLET, ORAL, JAEL PHARMAC, 180 ea. BOTTLE Active [id number] 2023 360 Pharmac y Data Transac tion Service Facilit y ESOMEPRAZOL E MAGNESIUM (esomeprazo le magnesium), 40 MG, CAPSULE , ORAL, AUROBINDO PHARM, 90 ea. BOTTLE Cancele d [id number] : 2023 0 Pharmac y Data Transac tion Service Facilit y ESOMEPRAZOL E MAGNESIUM (esomeprazo le magnesium), 40 MG, CAPSULE , ORAL, AUROBINDO PHARM, 90 ea. BOTTLE Active [id number] 2023 90 Pharmac y Data Transac tion Service Facilit y ESOMEPRAZOL E MAGNESIUM (esomeprazo le magnesium), 40 MG, CAPSULE , ORAL, AUROBINDO PHARM, 90 ea. BOTTLE Active [id number] 2023 90 Pharmac y Data Transac tion Service Facilit y FLUTICASONE PROPIONATE (FLUTICASON E PROPIONATE) , 50MCG, SPRAY SUSP, NASAL, APOTEX LINDSEY, 16 g AER W/ADAP Cancele d [id number] : 2023 0 Pharmac y Data Transac tion Service Facilit y GABAPENTIN (gabapentin ), 300 MG, CAPSULE, ORAL, XLCARE PHARMACE, 270 ea. BOTTLE Active [id number] 2023 180 Pharmac y Data Transac tion Service Facilit y GALZIN (ZINC ACETATE), 50MG, CAPSULE, ORAL, GATE PHARM, 250 ea. BOTTLE Cancele d [id number] : 2023 0 Pharmac y Data Transac tion Service Facilit y GALZIN (ZINC ACETATE), 50MG, CAPSULE, ORAL, GATE PHARM, 250 ea. BOTTLE Cancele d [id number] : 2023 0 Pharmac y Data Transac tion Service Facilit y GALZIN (ZINC ACETATE), 50MG, CAPSULE, ORAL, GATE PHARM, 250 ea. BOTTLE Cancele d [id number] : 2023 0 Pharmac y Data Transac tion Service Facilit y GALZIN (ZINC ACETATE), 50MG, CAPSULE, ORAL, GATE PHARM, 250 ea. BOTTLE Cancele d [id number] : 2023 0 Pharmac y Data Transac tion Service Facilit y GALZIN (ZINC ACETATE), 50MG, CAPSULE, ORAL, GATE PHARM, 250 ea. BOTTLE Cancele d [id number] : 2023 0 Pharmac y Data Transac tion Service Facilit y ONDANSETRON ODT (ONDANSETRO N), 4 MG, TAB RAPDIS, ORAL, CITRON PHARMA L, 30 ea. BLIST PACK Cancele d [id number] : 2023 0 Pharmac y Data Transac tion Service Facilit y TACROLIMUS (tacrolimus ), 0.5 MG, CAPSULE, ORAL, [employer] 100 ea. BOTTLE Active [id number] 2023 180 Pharmac y Data Transac tion Service Facilit y URSODIOL (URSODIOL), 500 MG, TABLET, ORAL, PAR PHARM., 100 ea. BOTTLE Cancele d [id number] : 2023 0 Pharmac y Data Transac tion Service Facilit y URSODIOL (URSODIOL), 500 MG, TABLET, ORAL, PAR PHARM., 100 ea. BOTTLE Cancele d [id number] : 2023 0 Pharmac y Data Transac tion Service Facilit y URSODIOL (ursodiol), 500 MG, TABLET, ORAL, ZYDUS PHARMACEU, 100 ea. BOTTLE Active [id number] 2023 180 Pharmac y Data Transac tion Service Facilit y Immunizations Combined list of available immunizations from the Department of Defense and Veterans Affairs facilities. Immunization Series Date Given Administered By Site Reaction Lot Number CVX Code Drug Security Systems Technician Status Comments Source COVID-19, mRNA, LNP-S, PF, 100 mcg or 50 mcg dose 2021 [employer] (MOD) Not Given COVID-19, mRNA, LNP-S, PF, 100 mcg or 50 mcg dose [facility] Influenza vaccine, quadrivalent, adjuvanted 2020 BOGDASARIAN, () Not Given Influenza vaccine, quadrival ent, adjuvante d [facility] Social History Combined list of available smoking, tobacco, and other social history from Department of Defense and Veterans Affairs facilities. Social History Type Response Date Comment Sour e This section is an empty social history section. [facility]
--- NOTE | 2024-03-27 12:30 | ED_ITS ---
HPI - General Adult General Chief complaint: Dizziness Stated complaint: dizzy weak Time Seen by Provider: 03/27/24 17:39 Source: patient Limitations: no limitations History of Present Illness ED Provider: Geri Edmonds PA-C HPI narrative: 68-year-old female with a history of primary biliary cholangitis now status post liver transplant on anti rejection medication, presents with dizziness over the past 2-3 weeks. Patient states she has been having intermittent episodes of dizziness, her symptoms will worsen at times with position changes. Associated ataxia, listing to the right at times. Over the past 2-3 days, patient has had more frequent episodes, with nausea and vomiting. In addition, her daughter who is at bedside, notes she has had intermittent slurred speech. Lastly, the patient has developed weakness of the right upper extremity, she will randomly drop objects. Denies headache, visual changes or history of vertigo. Denies confusion or altered mental status. Related Data Home Medications ?Medication ?Instructions ?Recorded ?Confirmed cholecalciferol (vitamin D3) 25 25 mcg PO DAILY 04/25/22 02/18/24 mcg (1,000 unit) capsule (Vitamin D3) tacrolimus 0.5 mg capsule, 0.5 mg PO Q12H 08/22/22 02/18/24 immediate-release spironolactone 50 mg tablet 50 mg PO BID 12/06/23 02/18/24 bupropion HCl 300 mg 24 hr tablet, 450 mg PO DAILY 12/18/23 02/18/24 extended release hydroxyzine HCl 10 mg tablet 10 mg PO TID 12/18/23 02/18/24 Previous Rx's ?Medication ?Instructions ?Recorded walker (Ultra-Light Rollator misc) #1 ea 12/16/22 colesevelam 625 mg tablet 1,250 mg (2 x 625 mg) PO BID 30 03/22/23 days #120 tabs inhalational spacing device (Alex #90 ea 05/28/23 Aerosol Mcpherson Enhancer spacer) ondansetron 4 mg disintegrating 4 mg PO Q8H PRN for 05/28/23 tablet nausea/vomiting #270 tabs pyridoxine (vitamin B6) 100 mg 100 mg PO BID #180 tabs 05/28/23 tablet esomeprazole magnesium 40 mg 40 mg PO DAILY #90 caps 06/20/23 capsule,delayed release cyanocobalamin (vitamin B-12) 1,000 mcg PO DAILY #90 tabs 06/22/23 1,000 mcg tablet (Vitamin B-12) zinc acetate 50 mg (zinc) capsule 50 mg PO DAILY 90 days #90 caps 10/01/23 (Galzin) gabapentin 300 mg capsule 600 mg (2 x 300 mg) PO BEDTIME 01/11/24 #180 caps furosemide 40 mg tablet 40 mg PO DAILY 90 days #90 tabs 01/23/24 ursodiol 500 mg tablet 500 mg PO BID #180 tabs 02/15/24 amoxicillin 500 mg capsule 1,000 mg (2 x 500 mg) PO BID 2 03/03/24 weeks #56 caps levofloxacin 500 mg tablet 500 mg PO DAILY #14 tabs 03/03/24 Allergies Allergy/AdvReac Type Severity Reaction Status Date / Time hydromorphone [From Dilaudid] Allergy Severe Hallucinati Verified 03/27/24 12:37 ons losartan Allergy Intermediate Facial Verified 03/27/24 12:37 Swelling Sulfa (Sulfonamide AdvReac Severe Rash Verified 03/27/24 12:37 Antibiotics) Review of Systems 2 Review of Systems: Yes all other systems are reviewed and are negative Constitutional: Constitutional: Denies fatigue, Denies fever(s) and Denies headache(s) ENT: Denies vertigo, Reports dizziness and Denies headache(s) Cardiovascular: Cardiovascular: Denies chest pain and Denies dyspnea Respiratory: Respiratory: Denies cough and Denies dyspnea Gastrointestinal: Gastrointestinal: Denies abdominal pain, Reports nausea and Reports vomiting Musculoskeletal: Musculoskeletal: Reports abnormal gait, Reports muscle weakness, Denies numbness and Denies tingling Neurologic: Reports abnormal gait, Denies confusion, Denies vertigo, Reports dizziness, Denies headache(s), Denies numbness and Denies tingling Psychiatric: Psychiatric: Denies confusion Endocrine: Endocrine: Denies fatigue [facility] Past Medical History Attestation statement: The following information was validated with the patient. Medical History Stroke Fracture of fifth metatarsal bone of right foot Fracture of fourth metatarsal bone of right foot Shakes Frequent falls Ascites Anemia CHF (congestive heart failure) Pancytopenia Anxiety HTN (hypertension) Tremor Chronic diarrhea Primary biliary cholangitis Breast cancer Surgical History History of abdominal paracentesis Hx of sigmoidoscopy H/O wrist surgery Transplant recipient Hx of colonoscopy Hx of esophagogastroduodenoscopy H/O: hysterectomy S/P hip replacement Liver transplant recipient Family History Family History Mother CAD (coronary artery disease) Sister Ovarian cancer Mental health disorder Social History Social History Household Members: Spouse Household Members Other:: , children Housing: House Are you a primary personal care home administrator to a significant other at home: No Do you presently have visiting nurse or other home services: No Alcohol intake: former Patient Tobacco Use Status: Former Tobacco user Tobacco use type: Cigarette Smoked in Last 30 Days: No e-Cigarette/Vaping Use: Never Used Second Hand Smoke Exposure: No Use of substances other than those prescribed or required for medical reasons: No Advance Directives: Yes Advance Directives on File: Yes Advance Directives Date on File: 12/15/22 service: No Current occupational status: retired Cognitive needs: No Hearing needs: No Vision needs: Yes Physical Exam ED Vital Signs: Vital Signs - 24 hr 03/27/24 12:28 03/27/24 17:33 03/27/24 21:02 Temperature 97.7 F 98.1 F 97.9 F Pulse Rate 95 85 87 Respiratory Rate 18 16 16 Blood Pressure 141/75 H 127/72 118/63 Pulse Oximetry 95 97 100 Oxygen Delivery Method Room Air Room Air 03/27/24 21:57 03/27/24 21:58 03/27/24 21:58 Temperature Pulse Rate 92 102 H 104 H Respiratory Rate Blood Pressure 119/63 116/74 117/77 Pulse Oximetry Oxygen Delivery Method BMI result Body Mass Index 22.8 Const Other: Alert, appears older than stated age, cachectic General: No confusion Orientation/consciousness: patient oriented x3 and No confusion Eyes Other: No nystagmus noted Resp Other: Nonlabored respirations Cardio Other: Normal peripheral perfusion Skin Other: Warm dry no rash Neuro Other: Patient walks with a antalgic gait, no ataxia noted, Romberg negative, strength 5/5 bilateral upper and lower extremities with resistance General: patient oriented x3, gait normal, no focal motor deficits and No confusion Psych Other: Calm cooperative NIH Stroke Scale Internal: Initial- Upon Arrival Level of Consciousness: Alert Level of Consciousness Questions: Answers both questions correctly Level of Consciousness Commands: Performs both tasks correctly Best Gaze: Normal Visual: No visual loss Facial Palsy: Normal Motor Arm (Right): No drift Motor Arm (Left): No drift Motor Leg (Right): No drift Motor Leg (Left): No drift Limb Ataxia: Absent Sensory: Normal Best Language: No aphasia Dysarthia: Normal Extinction and Inattention: No abnormality Score: 0 Course Course Course Narrative: RME, this is a rapid medical exam performed by Thaddeus Trejo please refer to primary provider for complete H&P- 68-year-old female past medical history significant for a liver transplant presenting for evaluation of dizziness, confusion. Your symptoms started on Sunday and worsened yesterday. Her family reports that she had slurred speech yesterday but not today. The patient feels somewhat better today. NIH stroke score of 0 currently. Plan for labs, ammonia, EKG, CT scan of the brain without contrast. Reevaluation(s) Reevaluation #1: I spoke with the hospitalist about the need for hospital admission, neurology consult and potential MRI. Given the infarct is old, is not new per the angiograms, and there are no other acute findings, the patient can follow up as an outpatient with her providers. We will obtain orthostatic vitals, if she does have orthostasis, she would be admitted for a cardiovascular workup. Reevaluation #2: Orthostatics are appropriate with normal variance Medications Administered Discontinued Medications Generic Name Dose Route Start Last Admin Trade Name Freq PRN Reason Stop Dose Admin Iohexol 100 ml 03/27/24 18:05 03/27/24 18:07 Iohexol 350 Mg/Ml 100 Ml Infus..Btl IV 03/27/24 18:06 70 ml ONCE ONE Administration Medical Decision Making Medical Decision Making MDM Narrative: 68-year-old female with a history of primary biliary cholangitis now status post liver transplant on anti rejection medication, presents with dizziness over the past 2-3 weeks. Patient states she has been having intermittent episodes of dizziness, her symptoms will worsen at times with position changes. Associated ataxia, listing to the right at times. Over the past 2-3 days, patient has had more frequent episodes, with nausea and vomiting. In addition, her daughter who is at bedside, notes she has had intermittent slurred speech. Lastly, the patient has developed weakness of the right upper extremity, she will randomly drop objects. Denies headache, visual changes or history of vertigo. Denies confusion or altered mental status. Problem: Liver transplant History: Per patient and her daughter I have considered the following differential diagnoses: Hepatic encephalopathy, CVA, TIA, vertigo Plan: The patient is not altered and has not been confused, and ammonia was checked, this is not hepatic encephalopathy. I am concerned for posterior circulation involvement, that she is having TIA. There is evidence of old infarct on her non-con CT scan, that was new as of October 2023, from her prior studies. The distribution of the old infarct would not coincide with her current symptoms. Given intermittent symptoms, we will be obtaining angiograms to rule out the presence of CVA. I do not believe her symptoms are vertiginous in nature, no nystagmus on exam, she has no history. Labs: Stable pancytopenia, no electrolyte abnormality, LFTs at baseline, ammonia 44 CT brain: CT/CT head/brain wo IV con IMPRESSION: 1. There is no acute intracranial abnormality. No intracranial hemorrhage or mass effect. There is no CT evidence of acute territorial infarct. 2. There is a new small linear appearing region of white matter infarction in the high right frontal lobe, not present previously in suspect for a infarct occurring since 10/01/2023. Embolic phenomenon not excluded. 3. There is an old right parietal infarct, unchanged. 3. There is age-related cerebral and cerebellar involutional changes. There are prominent extra-axial spaces overlying the frontal convexities. Electronically signed by: Jaron Agarwal MD 03/27/2024 01:24 PM EST RP CTA head/neck: CT/CT angio head neck STROKE IMPRESSION: 1. CTA head demonstrates no large vessel occlusion, saccular aneurysm, or dissection. 2. CTA neck demonstrates no hemodynamically significant stenosis, dissection, or aneurysm. Partially imaged bilateral pleural effusions with nonspecific mosaic attenuation. Electronically signed by: Kaushal Corrigan MD 03/27/2024 06:59 PM EST RP Lab Data 03/27/24 13:27 03/27/24 13:27 Labs: Lab Results 03/27/24 03/27/24 03/27/24 Range/Units 13:27 15:06 17:36 WBC 3.7 L (4.8-10.8) X10*3/uL RBC 3.62 L (4.20-5.50) X10*6/uL Hgb 10.3 L (12.0-16.0) g/dl Hct 32.2 L (37.0-47.0) % MCV 89.0 (80.0-98.0) fL MCH 28.5 (27.0-33.0) pg MCHC 32.0 (31.0-35.0) g/dl RDW 15.6 (11.0-16.0) % Plt Count 83 L D (160-400) X10*3/uL MPV 10.0 (9.4-12.3) fL Immature Gran % (Auto) 0.3 (0.0-0.4) % Neut % (Auto) 69.5 (45-73) % Lymph % (Auto) 13.9 L (20-40) % [place] % (Auto) 13.1 H (2-11) % Eos % (Auto) 2.7 (0-4) % Baso % (Auto) 0.5 (0-2) % Lymph # (Auto) 0.5 L (1.2-4.9) X10*3/uL [place] # (Auto) 0.5 (0.1-1.2) X10*3/uL Eos # (Auto) 0.1 (0.0-0.4) X10*3/uL Baso # (Auto) 0.0 (0.0-0.2) X10*3/uL Abs Immat Gran (auto) 0.01 (0.00-0.03) X10*3/uL Absolute Neuts (auto) 2.5 (2.0-8.3) x10*3/uL Absolute Nucleated RBC 0.000 (0.0-0.012) X10*3/uL Nucleated RBC % (auto) 0.0 (0.0-0.2) /100WBC PT 14.9 H (10.9-12.4) SEC INR 1.3 H (0.9-1.1) Sodium 137 (135-145) mmol/L Potassium 4.8 (3.3-5.1) mmol/L Chloride 111 H (96-108) mmol/L Carbon Dioxide 23 (22-29) mmol/L Anion Gap 8 L (12-20) BUN 34 H (9-16) mg/dL Creatinine 1.03 (0.5-1.4) mg/dL Estim Creat Clear Calc 35.1 Estimated GFR 53 Random Glucose 128 H (60-115) mg/dL Calcium 8.3 L (8.4-10.2) mg/dL Total Bilirubin 1.0 (0.0-1.0) mg/dL AST 35 H (5-31) U/L ALT 27 (0-31) U/L Alkaline Phosphatase 142 H (39-117) U/L Ammonia 44 (13-55) umol/L Total Protein 6.9 (6.5-8.0) g/dL Albumin 3.3 L (3.5-5.0) g/dL Lipase 48 (8-78) U/L Urine Color Dark Yellow Urine Appearance Clear Urine pH 6.0 (5.0-9.0) Ur Specific [place] 1.025 (1.005-1.025) Urine Protein Negative (Neg-Trace) mg/dL Urine Glucose (UA) Negative (Negative) mg/dL Urine Ketones Negative (Negative) mg/dL Urine Blood Negative (Negative) Urine Nitrite Negative (Negative) Ur Leukocyte Esterase Negative (Negative) Urine RBC 0-2 (0-2) /HPF Urine WBC 0-5 (0-5) /HPF Ur Squamous Epith Cells 0-2 (0-2) /HPF Urine Bacteria None Seen (None Seen) Hyaline Casts 0-2 (0-2) /LPF Influenza Type A (PCR) NEGATIVE (Negative) Influenza Type B (PCR) NEGATIVE (Negative) RSV RNA Qual (PCR) NEGATIVE (Negative) SARS-CoV-2 RNA (RT-PCR) NEGATIVE (Negative) Discharge Plan Discharge Clinical Impression: Dizziness Patient Disposition: Home, Self-Care Instructions: Dizziness (ED) Additional Instructions: There was evidence of old strokes on your CT scan of the brain. The CT angiogram of your head and neck were both normal. You are not having a stroke. You also had no lab abnormalities. You can follow up with your primary care provider for further assessment. Prescriptions: No Action colesevelam 625 mg tablet 1,250 mg PO BID 30 Days Qty: 120 3RF ondansetron 4 mg tablet,disintegrating 4 mg PO Q8H PRN (Reason: for nausea/vomiting) Qty: 270 0RF (DME) Alex Aerosol Mcpherson Enhancer Spacer See Rx Instructions .ROUTE .COMPLEX Qty: 90 0RF Dose Instruction: USE DIRECTED Rx Instructions: USE DIRECTED pyridoxine (vitamin B6) 100 mg tablet 100 mg PO BID Qty: 180 0RF esomeprazole magnesium 40 mg capsule,delayed release(DR/EC) 40 mg PO DAILY Qty: 90 2RF cyanocobalamin (vitamin B-12) [Vitamin B-12] 1,000 mcg tablet 1,000 mcg PO DAILY Qty: 90 3RF Galzin 50 mg (zinc) capsule 50 mg PO DAILY 90 Days Qty: 90 1RF gabapentin 300 mg capsule 600 mg PO BEDTIME Qty: 180 2RF furosemide 40 mg tablet 40 mg PO DAILY 90 Days Qty: 90 3RF ursodiol 500 mg tablet 500 mg PO BID Qty: 180 3RF cholecalciferol (vitamin D3) [Vitamin D3] 25 mcg (1,000 unit) Capsule 25 mcg PO DAILY (DME) Ultra-Light Rollator Misc See Rx Instructions .Route Qty: 1 0RF Rx Instructions: As directed bupropion HCl 300 mg tablet extended release 24 hr 450 mg PO DAILY spironolactone 50 mg tablet 50 mg PO BID tacrolimus 0.5 mg capsule 0.5 mg PO Q12H hydroxyzine HCl 10 mg tablet 10 mg PO TID amoxicillin 500 mg capsule 1,000 mg PO BID 14 Days Qty: 56 0RF levofloxacin 500 mg tablet 500 mg PO DAILY Qty: 14 0RF Print Language: Azeri
--- NOTE | 2024-03-27 12:30 | ECG_ITS ---
Test Reason : dizzy Blood Pressure : / mmHG Vent. Rate : 088 BPM Atrial Rate : 088 BPM P-R Int : 156 ms QRS Dur : 068 ms QT Int : 358 ms P-R-T Axes : 056 009 037 degrees QTc Int : 433 ms Normal sinus rhythm Low voltage QRS Septal infarct (cited on or before 15-DEC-2022) Abnormal ECG When compared with ECG of 02-MAR-2023 17:52, Criteria for Inferior infarct are no longer Present Questionable change in initial forces of Anteroseptal leads Nonspecific T wave abnormality no longer evident in Inferior leads Referred By: Gabriel Trejo Electronically Signed By:JESSICA KEMP MD
[2024-03-27 13:33] LABS: MANUAL DIFF FLAG NO
[2024-03-27 13:40] LABS: Basophils Percent Auto 0.5 % (0-2); Eosinophils Absolute Auto 0.1 X10*3/uL (0.0-0.4); Eosinophils Percent Auto 2.7 % (0-4); Hematocrit 32.2 % (37.0-47.0); Hemoglobin 10.3 g/dl (12.0-16.0); Imm Gran Abs Auto 0.01 X10*3/uL (0.00-0.03); Imm Gran Pct Auto 0.3 % (0.0-0.4); Lymphocytes Absolute Auto 0.5 X10*3/uL (1.2-4.9); Lymphocytes Percent Auto 13.9 % (20-40); Mean Corpuscular Hemoglobin 28.5 pg (27.0-33.0); Monocytes Absolute Auto 0.5 X10*3/uL (0.1-1.2); Monocytes Percent Auto 13.1 % (2-11); Neutrophils Absolute Auto 2.5 x10*3/uL (2.0-8.3); Neutrophils Percent Auto 69.5 % (45-73); Red Blood Count 3.62 X10*6/uL (4.20-5.50); Red Cell Distribution Width 15.6 % (11.0-16.0); White Blood Count 3.7 X10*3/uL (4.8-10.8)
[2024-03-27 13:43] LABS: Platelet Count 83 X10*3/uL (160-400)
[2024-03-27 13:48] LABS: INTERNATIONAL NORM RATIO 1.3 (0.9-1.1); Prothrombin Time 14.9 SEC (10.9-12.4)
[2024-03-27 13:50] LABS: Alanine Aminotransferase 27 U/L (0-31); Albumin Level 3.3 g/dL (3.5-5.0); Alkaline Phosphatase 142 U/L (39-117); Anion Gap 8 (12-20); Aspartate Amino Transferase 35 U/L (5-31); Blood Urea Nitrogen 34 mg/dL (9-16); Calcium 8.3 mg/dL (8.4-10.2); Carbon Dioxide 23 mmol/L (22-29); Chloride 111 mmol/L (96-108); Creatinine Clr Calc Pharmacy 35.1; Estimated Glomerular Filt Rate 53; Glucose Random 128 mg/dL (60-115); Lipase 48 U/L (8-78); Potassium 4.8 mmol/L (3.3-5.1); Sodium 137 mmol/L (135-145); Total Protein 6.9 g/dL (6.5-8.0)
[2024-03-27 14:11] LABS: Influenza A PCR NEGATIVE (Negative); Influenza B PCR NEGATIVE (Negative); Resp Syncy Virus RNA Qual PCR NEGATIVE (Negative); SARS COV2 PCR INHOUSE NEGATIVE (Negative)
[2024-03-27 15:27] LABS: Ammonia 44 umol/L (13-55)
--- OUTSIDE RECORDS SUMMARY | 2024-03-27 16:18 | XMS_ITS | Continuity of Care Document ---
Author Name [facility] Organization [facility] Care Team Providers Care Associate Chief Nurse Name Role Phone [facility] Unavailable Unavailable Medications Combined list of outpatient [...] MYLAN SPECIALTY, 1 ea. BOX Cancele d [id number] : 2023 0 Pharmac y Data Transac tion Service Facilit y NICHELLE AEROSOL CLOUD ENHANCER (inhaler, assist devices), SPACER, MISCELL, MYLAN SPECIALTY, 1 ea. BOX Cancele d [id number] : 2023 0 Pharmac y Data Transac tion Service Facilit y NICHELLE AEROSOL CLOUD ENHANCER (inhaler, assist devices), SPACER, MISCELL, MYLAN SPECIALTY, 1 ea. BOX Active [id number] 4 2023 1 Pharmac y Data Transac tion Service Facilit y ALBUTEROL SULFATE HFA (albuterol sulfate), 90 MCG, HFA AER AD, INHALATION, [employer] 6.7 g CANISTER Cancele d [id number] : 2023 0 Pharmac y Data Transac tion Service Facilit y ALBUTEROL SULFATE HFA (albuterol sulfate), 90 MCG, HFA AER AD, INHALATION, [employer] 6.7 g CANISTER Active [id number] 4 2023 6.7 Pharmac y Data Transac tion Service Facilit y ALBUTEROL SULFATE HFA (albuterol sulfate), 90 MCG, HFA AER AD, INHALATION, [facility], 6.7 g CANISTER Cancele d [id number] : 2023 0 Pharmac y Data Transac tion Service Facilit y ALENDRONATE SODIUM (alendronat e sodium), 70 MG, TABLET, ORAL, RISING PHARM, 4 ea. BLIST PACK Active [id number] 2023 12 Pharmac y Data Transac tion Service Facilit y AMOXICILLIN (AMOXICILLI N), 500 MG, CAPSULE, ORAL, AUROBINDO PHARM, 500 ea. BOTTLE Cancele d [id number] : 2023 0 Pharmac y Data Transac tion Service Facilit y AMOXICILLIN (AMOXICILLI N), 500 MG, CAPSULE, ORAL, AUROBINDO PHARM, 500 ea. BOTTLE Active [id number] 4 2023 4 Pharmac y Data Transac tion Service Facilit y BUPROPION XL (bupropion HCl), 300 MG, TAB ER 24H, ORAL, LUPIN PHARMACEU, 500 ea. BOTTLE Cancele d [id number] : 2023 0 Pharmac y Data Transac tion Service Facilit y BUPROPION XL (bupropion HCl), 300 MG, TAB ER 24H, ORAL, LUPIN PHARMACEU, 500 ea. BOTTLE Active [id number] 4 2023 90 Pharmac y Data Transac tion Service Facilit y BUPROPION XL (bupropion HCl), 300 MG, TAB ER 24H, ORAL, LUPIN PHARMACEU, 500 ea. BOTTLE Cancele d [id number] : 2022 0 Pharmac y Data Transac tion Service Facilit y BUPROPION XL (bupropion HCl), 300 MG, TAB ER 24H, ORAL, SLATE RUN PHARM, 500 ea. BOTTLE Cancele d [id number] : 2022 0 Pharmac y Data Transac tion Service Facilit y CEFUROXIME (CEFUROXIME AXETIL), 500 MG, TABLET, ORAL, AUROBINDO PHARM, 20 ea. BOTTLE Active [id number] 2023 24 Pharmac y Data Transac tion Service Facilit y COLESEVELAM HCL (colesevela m HCl), 625 MG, TABLET, ORAL, JAEL PHARMAC, 180 ea. BOTTLE Cancele d [id number] : 2023 0 Pharmac y Data Transac tion Service Facilit y COLESEVELAM HCL (colesevela m HCl), 625 MG, TABLET, ORAL, JAEL PHARMAC, 180 ea. BOTTLE Cancele d [id number] : 2022 0 Pharmac y Data Transac tion Service Facilit y COLESEVELAM HCL (colesevela m HCl), 625 MG, TABLET, ORAL, JAEL PHARMAC, 180 ea. BOTTLE Active [id number] 2022 360 Pharmac y Data Transac tion Service Facilit y COLESEVELAM HCL (colesevela m HCl), 625 MG, TABLET, ORAL, JAEL PHARMAC, 180 ea. BOTTLE Active [id number] 2023 360 Pharmac y Data Transac tion Service Facilit y ESOMEPRAZOL E MAGNESIUM (esomeprazo le magnesium), 40 MG, CAPSULE , ORAL, AUROBINDO PHARM, 90 ea. BOTTLE Cancele d [id number] : 2023 0 Pharmac y Data Transac tion Service Facilit y ESOMEPRAZOL E MAGNESIUM (esomeprazo le magnesium), 40 MG, CAPSULE , ORAL, AUROBINDO PHARM, 90 ea. BOTTLE Active [id number] 2023 90 Pharmac y Data Transac tion Service Facilit y ESOMEPRAZOL E MAGNESIUM (esomeprazo le magnesium), 40 MG, CAPSULE , ORAL, AUROBINDO PHARM, 90 ea. BOTTLE Active [id number] 4 2023 90 Pharmac y Data Transac tion Service Facilit y FLUTICASONE PROPIONATE (FLUTICASON E PROPIONATE) , 50MCG, SPRAY SUSP, NASAL, APOTEX LINDSEY, 16 g AER W/ADAP Cancele d [id number] : 2023 0 Pharmac y Data Transac tion Service Facilit y GABAPENTIN (gabapentin ), 300 MG, CAPSULE, ORAL, XLCARE PHARMACE, 270 ea. BOTTLE Active [id number] 4 2023 180 Pharmac y Data Transac tion Service Facilit y GALZIN (ZINC ACETATE), 50MG, CAPSULE, ORAL, GATE PHARM, 250 ea. BOTTLE Cancele d [id number] : 2023 0 Pharmac y Data Transac tion Service Facilit y GALZIN (ZINC ACETATE), 50MG, CAPSULE, ORAL, GATE PHARM, 250 ea. BOTTLE Cancele d [id number] : 2023 0 Pharmac y Data Transac tion Service Facilit y GALZIN (ZINC ACETATE), 50MG, CAPSULE, ORAL, GATE PHARM, 250 ea. BOTTLE Cancele d [id number] : 2023 0 Pharmac y Data Transac tion Service Facilit y GALZIN (ZINC ACETATE), 50MG, CAPSULE, ORAL, GATE PHARM, 250 ea. BOTTLE Cancele d [id number] : 2023 0 Pharmac y Data Transac tion Service Facilit y GALZIN (ZINC ACETATE), 50MG, CAPSULE, ORAL, GATE PHARM, 250 ea. BOTTLE Cancele d [id number] : 2023 0 Pharmac y Data Transac tion Service Facilit y ONDANSETRON ODT (ONDANSETRO N), 4 MG, TAB RAPDIS, ORAL, CITRON PHARMA L, 30 ea. BLIST PACK Cancele d [id number] : 2023 0 Pharmac y Data Transac tion Service Facilit y TACROLIMUS (tacrolimus ), 0.5 MG, CAPSULE, ORAL, [employer] 100 ea. BOTTLE Active [id number] 2023 180 Pharmac y Data Transac tion Service Facilit y URSODIOL (URSODIOL), 500 MG, TABLET, ORAL, PAR PHARM., 100 ea. BOTTLE Cancele d [id number] : 2023 0 Pharmac y Data Transac tion Service Facilit y URSODIOL (URSODIOL), 500 MG, TABLET, ORAL, PAR PHARM., 100 ea. BOTTLE Cancele d [id number] : 2023 0 Pharmac y Data Transac tion Service Facilit y URSODIOL (ursodiol), 500 MG, TABLET, ORAL, ZYDUS PHARMACEU, 100 ea. BOTTLE Active [id number] 2023 180 Pharmac y Data Transac tion Service Facilit y Immunizations Combined list of available immunizations from the Department of Defense and Veterans Affairs facilities. Immunization Series Date Given Administered By Site Reaction Lot Number CVX Code Drug Museum Technician Status Comments Source COVID-19, mRNA, LNP-S, PF, 100 mcg or 50 mcg dose [address] [place] [facility] [employer] (MOD) Not Given COVID-19, mRNA, LNP-S, PF, 100 mcg or 50 mcg dose [facility] Influenza vaccine, quadrivalent, adjuvanted 2020 BOGDASARIAN, () Not Given Influenza vaccine, quadrival ent, adjuvante d [facility] Social History Combined list of available smoking, tobacco, and other social history from Department of Defense and Veterans Affairs facilities. Social History Type Response Date Comment Sour e This section is an empty social history section. [facility]
[2024-03-27 17:46] LABS: Appearance Urine Clear; Color Urine Dark Yellow; Glucose Urine UA Negative (Negative); Leukocyte Esterase Urine Negative (Negative); Nitrite Urine Negative (Negative); Specific Gravity - Urine 1.025 (1.005-1.025); Urine Blood Negative (Negative); Urine Ketones Negative (Negative); Urine Protein Negative (Neg-Trace)
[2024-03-27 17:49] LABS: Bacteria Urine None Seen (None Seen); Hyaline Casts Urine 0-2 /LPF (0-2); RBC Urine 0-2 /HPF (0-2); Squamous Epithelial Cell Urine 0-2 /HPF (0-2); WBC Urine 0-5 /HPF (0-5)
[2024-03-27] MEDS: iohexoL 350 MG/ML 100 ML INFUS..BTL IV (18:07)
== END 2024-03-27 23:43 | disposition home or self-care (01) ==
PROVIDERS: Physician Assistant; Emergency Provider Emergency Medicine; PCP Internal Medicine
DX: R42 Dizziness and giddiness (principal); R11.2 Nausea with vomiting, unspecified; R29.700 NIHSS score 0; I11.0 Hypertensive heart disease with heart failure; I50.9 Heart failure, unspecified; Z94.4 Liver transplant status; Z86.73 Personal history of transient ischemic attack (TIA), and cerebral infarction without residual deficits; Z79.899 Other long term (current) drug therapy; Z87.891 Personal history of nicotine dependence; Z03.818 Encounter for observation for suspected exposure to other biological agents ruled out
CPT/HCPCS: 0241U; 70450; 70496; 70498; 80053; 81001; 82140; 83690; 85025; 85610; 93005; 99284; 99285; Q9967

== ENCOUNTER → 2024-03-27 12:30 | Outpatient (BNV) | payer MEDICARE, OTHER, SELFPAY | PROVIDERS: Emergency Provider Emergency Medicine; PCP Internal Medicine; Visit Provider Internal Medicine Cardiovascular Disease | DX: R94.31 Abnormal electrocardiogram [ECG] [EKG] (principal) | CPT/HCPCS: 93010 ==

== ENCOUNTER → 2024-03-27 12:30 | Outpatient (BNV) | payer MEDICARE, OTHER, SELFPAY | PROVIDERS: PCP Internal Medicine; Visit Provider Radiology Diagnostic Radiology | DX: R42 Dizziness and giddiness (principal) | CPT/HCPCS: 70450 ==

== ENCOUNTER 2024-04-16 10:09 | Outpatient (REF) | payer MEDICARE, OTHER, SELFPAY ==
--- OUTSIDE RECORDS SUMMARY | 2024-04-16 17:28 | XMS_ITS | Continuity of Care Document ---
Author Name [facility] Organization [facility] Care Team Providers Care Smoke Jumper Supervisor Name Role Phone [facility] Unavailable Unavailable Medications Combined list of outpatient [...] MYLAN SPECIALTY, 1 ea. BOX Cancele d [id number] : 2023 0 Pharmac y Data Transac tion Service Facilit y NICHELLE AEROSOL CLOUD ENHANCER (inhaler, assist devices), SPACER, MISCELL, MYLAN SPECIALTY, 1 ea. BOX Cancele d [id number] : 2023 0 Pharmac y Data Transac tion Service Facilit y NICHELLE AEROSOL CLOUD ENHANCER (inhaler, assist devices), SPACER, MISCELL, MYLAN SPECIALTY, 1 ea. BOX Active [id number] 2023 1 Pharmac y Data Transac tion Service Facilit y ALBUTEROL SULFATE HFA (albuterol sulfate), 90 MCG, HFA AER AD, INHALATION, [employer] 6.7 g CANISTER Cancele d [id number] : 2023 0 Pharmac y Data Transac tion Service Facilit y ALBUTEROL SULFATE HFA (albuterol sulfate), 90 MCG, HFA AER AD, INHALATION, [employer] 6.7 g CANISTER Active [id number] 4 2023 6.7 Pharmac y Data Transac tion Service Facilit y ALBUTEROL SULFATE HFA (albuterol sulfate), 90 MCG, HFA AER AD, INHALATION, [facility], 6.7 g CANISTER Cancele d [id number] : 2023 0 Pharmac y Data Transac tion Service Facilit y ALENDRONATE SODIUM (alendronat e sodium), 70 MG, TABLET, ORAL, RISING PHARM, 4 ea. BLIST PACK Active [id number] 2023 12 Pharmac y Data Transac tion Service Facilit y AMOXICILLIN (AMOXICILLI N), 500 MG, CAPSULE, ORAL, AUROBINDO PHARM, 500 ea. BOTTLE Cancele d [id number] : 2023 0 Pharmac y Data Transac tion Service Facilit y AMOXICILLIN (AMOXICILLI N), 500 MG, CAPSULE, ORAL, AUROBINDO PHARM, 500 ea. BOTTLE Active [id number] 2023 4 Pharmac y Data Transac tion Service Facilit y BUPROPION XL (bupropion HCl), 300 MG, TAB ER 24H, ORAL, LUPIN PHARMACEU, 500 ea. BOTTLE Cancele d [id number] : 2023 0 Pharmac y Data Transac tion Service Facilit y BUPROPION XL (bupropion HCl), 300 MG, TAB ER 24H, ORAL, LUPIN PHARMACEU, 500 ea. BOTTLE Active [id number] 4 2023 90 Pharmac y Data Transac tion Service Facilit y BUPROPION XL (bupropion HCl), 300 MG, TAB ER 24H, ORAL, LUPIN PHARMACEU, 500 ea. BOTTLE Cancele d [id number] : 2022 0 Pharmac y Data Transac tion Service Facilit y BUPROPION XL (bupropion HCl), 300 MG, TAB ER 24H, ORAL, SLATE RUN PHARM, 500 ea. BOTTLE Cancele d [id number] : 2022 0 Pharmac y Data Transac tion Service Facilit y CEFUROXIME (CEFUROXIME AXETIL), 500 MG, TABLET, ORAL, AUROBINDO PHARM, 20 ea. BOTTLE Active [id number] 2023 24 Pharmac y Data Transac tion Service Facilit y COLESEVELAM HCL (colesevela m HCl), 625 MG, TABLET, ORAL, JAEL PHARMAC, 180 ea. BOTTLE Cancele d [id number] : 2023 0 Pharmac y Data Transac tion Service Facilit y COLESEVELAM HCL (colesevela m HCl), 625 MG, TABLET, ORAL, JAEL PHARMAC, 180 ea. BOTTLE Cancele d [id number] : 2022 0 Pharmac y Data Transac tion Service Facilit y COLESEVELAM HCL (colesevela m HCl), 625 MG, TABLET, ORAL, JAEL PHARMAC, 180 ea. BOTTLE Active [id number] 2022 360 Pharmac y Data Transac tion Service Facilit y COLESEVELAM HCL (colesevela m HCl), 625 MG, TABLET, ORAL, JAEL PHARMAC, 180 ea. BOTTLE Active [id number] 2023 360 Pharmac y Data Transac tion Service Facilit y ESOMEPRAZOL E MAGNESIUM (esomeprazo le magnesium), 40 MG, CAPSULE , ORAL, AUROBINDO PHARM, 90 ea. BOTTLE Cancele d [id number] : 2023 0 Pharmac y Data Transac tion Service Facilit y ESOMEPRAZOL E MAGNESIUM (esomeprazo le magnesium), 40 MG, CAPSULE , ORAL, AUROBINDO PHARM, 90 ea. BOTTLE Active [id number] 2023 90 Pharmac y Data Transac tion Service Facilit y ESOMEPRAZOL E MAGNESIUM (esomeprazo le magnesium), 40 MG, CAPSULE , ORAL, AUROBINDO PHARM, 90 ea. BOTTLE Active [id number] 4 2023 90 Pharmac y Data Transac tion Service Facilit y FLUTICASONE PROPIONATE (FLUTICASON E PROPIONATE) , 50MCG, SPRAY SUSP, NASAL, APOTEX LINDSEY, 16 g AER W/ADAP Cancele d [id number] : 2023 0 Pharmac y Data Transac tion Service Facilit y GABAPENTIN (gabapentin ), 300 MG, CAPSULE, ORAL, XLCARE PHARMACE, 270 ea. BOTTLE Active [id number] 2023 180 Pharmac y Data Transac tion Service Facilit y GALZIN (ZINC ACETATE), 50MG, CAPSULE, ORAL, GATE PHARM, 250 ea. BOTTLE Cancele d [id number] : 2023 0 Pharmac y Data Transac tion Service Facilit y GALZIN (ZINC ACETATE), 50MG, CAPSULE, ORAL, GATE PHARM, 250 ea. BOTTLE Cancele d [id number] : 2023 0 Pharmac y Data Transac tion Service Facilit y GALZIN (ZINC ACETATE), 50MG, CAPSULE, ORAL, GATE PHARM, 250 ea. BOTTLE Cancele d [id number] : 2023 0 Pharmac y Data Transac tion Service Facilit y GALZIN (ZINC ACETATE), 50MG, CAPSULE, ORAL, GATE PHARM, 250 ea. BOTTLE Cancele d [id number] : 2023 0 Pharmac y Data Transac tion Service Facilit y GALZIN (ZINC ACETATE), 50MG, CAPSULE, ORAL, GATE PHARM, 250 ea. BOTTLE Cancele d [id number] : 2023 0 Pharmac y Data Transac tion Service Facilit y ONDANSETRON ODT (ONDANSETRO N), 4 MG, TAB RAPDIS, ORAL, CITRON PHARMA L, 30 ea. BLIST PACK Cancele d [id number] : 2023 0 Pharmac y Data Transac tion Service Facilit y TACROLIMUS (tacrolimus ), 0.5 MG, CAPSULE, ORAL, [employer] 100 ea. BOTTLE Active [id number] 2023 180 Pharmac y Data Transac tion Service Facilit y URSODIOL (URSODIOL), 500 MG, TABLET, ORAL, PAR PHARM., 100 ea. BOTTLE Cancele d [id number] : 2023 0 Pharmac y Data Transac tion Service Facilit y URSODIOL (URSODIOL), 500 MG, TABLET, ORAL, PAR PHARM., 100 ea. BOTTLE Cancele d [id number] : 2023 0 Pharmac y Data Transac tion Service Facilit y URSODIOL (ursodiol), 500 MG, TABLET, ORAL, ZYDUS PHARMACEU, 100 ea. BOTTLE Active [id number] 2023 180 Pharmac y Data Transac tion Service Facilit y Immunizations Combined list of available immunizations from the Department of Defense and Veterans Affairs facilities. Immunization Series Date Given Administered By Site Reaction Lot Number CVX Code Drug Forensic Sergeant Status Comments Source COVID-19, mRNA, LNP-S, PF, 100 mcg or 50 mcg dose 2021 SMABRIANJdguanjia [employer] (MOD) Not Given COVID-19, mRNA, LNP-S, PF, 100 mcg or 50 mcg dose [facility] Influenza vaccine, quadrivalent, adjuvanted 2020 BOGDASARIAN, () Not Given Influenza vaccine, quadrival ent, adjuvante d [facility] Social History Combined list of available smoking, tobacco, and other social history from Department of Defense and Veterans Affairs facilities. Social History Type Response Date Comment Sour e This section is an empty social history section. [facility]
[2024-04-18 14:26] LABS: H Pylori Breath Test Negative (Negative)
== END 2024-04-16 10:10 | disposition home or self-care (01) ==
LOC: HO.LNP 10:09
PROVIDERS: PCP Internal Medicine; Visit Provider Internal Medicine Gastroenterology
DX: K21.9 Gastro-esophageal reflux disease without esophagitis (principal)
CPT/HCPCS: 83013; 99211

== ENCOUNTER 2024-04-16 10:09 | Outpatient (AMB) | payer MEDICARE, OTHER, SELFPAY ==
--- NOTE | 2024-04-16 10:21 | AM.OFFVISNUR ---
Intake Visit Reasons: H Pylori Allergies hydromorphone [From Dilaudid] Allergy (Severe, Verified 03/27/24 12:37) Hallucinations losartan Allergy (Intermediate, Verified 03/27/24 12:37) Facial Swelling Sulfa (Sulfonamide Antibiotics) Adverse Reaction (Severe, Verified 03/27/24 12:37) Rash Nursing Note Patient presents for collection of H Pylori breath test. Patient has been fasting for 1 hour (nothing to eat, drink, no chewing gum or smoking) has not taken any antacid medication for at least 2 weeks and has no allergies to artificial sweeteners.?? Assessment & Plan Assessment & Plan (1) GERD (gastroesophageal reflux disease): Code(s): K21.9 - Gastro-esophageal reflux disease without esophagitis Plan Patient presents for collection of H Pylori breath test. Patient has been fasting for 1 hour (nothing to eat, drink, no chewing gum or smoking) has not taken any antacid medication for at least 2 weeks and has no allergies to artificial sweeteners.???This test checks for an overgrowth of bacteria in your stomach. We all have bacteria but some may have more than others. It is treatable. if the test comes back negative there is nothing else to do. If the test result is positive we will treat you with 2 antibiotics and a medication to decrease the acid in your stomach (PPI) for 2 weeks. Two weeks after you have completed the treatment we will retest you to make sure the overgrowth has resolved. Orders: Orders H Pylori Breath Test Today Patient Instructions: Process for specimen collection and reason for testing was explained to the patient. Specimen collection. Patient instructed to take a deep breath and then exhale into the blue bag, filling it up as much as possible. Patient instructed to drink a mixture of water and the artificial sweetener with a straw. A 15 minute wait period was observed. Patient instructed to take a deep breath and then exhale into the pink bag, filling it up as much as possible.??
== END 2024-04-16 10:32 | disposition home or self-care (01) ==
PROVIDERS: PCP Internal Medicine; Visit Provider Internal Medicine Gastroenterology
DX: K21.9 Gastro-esophageal reflux disease without esophagitis (principal)

== ENCOUNTER 2024-04-25 10:41 | Outpatient (REF) | payer MEDICARE, OTHER, SELFPAY ==
--- OUTSIDE RECORDS SUMMARY | 2024-04-25 12:14 | XMS_ITS | Encounter Summary ---
Author Organization [facility] Address [address] [place] [address] Care Team Providers Care Restaurant Recruiter Name Role Phone Ninonataliebabatunde Taylor Primary Care Provider [phone] Encounter Details Date Type Department Care Team (Late st Contact Info) Description 04/25/2024 myChart Message [facility] [address] [place] [address] Joycelyn Becerra MD [address] [place] [address] 03/27 ER Visit Social History Tobacco Use Types Packs/Day Years Used Date Smoking Tobacco: Former Cigarettes Smokeless Tobacco: Never Alcohol Use Standard Drinks/Week Comments Never 0 (1 standard drink = 0.6 oz pur e alcohol) Comments Unknown Sex and Gender Information Value Date Recorded Sex Assigned at Female 12/01/2023 12:25 PM EDT Legal Sex Female 12:06 AM EDT Gender Identity Female 12/19/2023 8:48 AM EDT Sexual Orientation Straight 12/19/2023 8: 48 AM EDT documented as of this encounter Plan of Treatment Upcoming Encounters Date Type Department Care Team (Late st Contact Info) Description 06/18/2024 10:30 AM EDT Follow-Up [facility] [address] [place] [address] Joycelyn Becerra MD [address], [place] [id number] 06/18/2024 11:00 AM EDT Nutrition [facility] [address] [place] [address] [facility] NUTRITION [place], [place] documented as of this encounter Visit Diagnoses Not on filedocumented in this encounter Care Teams Restaurant Recruiter Relationship Specialty Start Date End Date Taylor Zapata [place] [address] PCP - General Internal Medicine 12/01/23 documented as of this encounter
--- OUTSIDE RECORDS SUMMARY | 2024-04-25 12:14 | XMS_ITS | Referral Summary ---
Author Organization [facility] Address [address] [place] [address] Care Team Providers Care Chyron Operator Name Role Phone Taylor Zapata Primary Care Provider [phone] Encounters Date Type Department Care Team Description 04/25/2024 myChart Message [facility] Liver Transplant Services [address] [place] [address] Joycelyn Becerra MD 03/27 ER Visit 03/27/2024 Telephone [facility] Transplant Department [address] [place] [address] Ida Coon RN 03/19/2024 12:00 PM EST Nutrition [facility] Renal Transplant [address] [place] [address] Jacquie Galloway, CARTER 03/19/2024 11:30 AM EST Follow-Up [facility] Liver Transplant Services [address] [place] [address] Joycelyn Becerra MD Liver fibrosis, transplanted liver (CMS/HCC) (HCC) (Primary Dx); Primary biliary cholangitis (HCC); Bilateral subclavian vein occlusion (HCC) 03/07/2024 Telephone [facility] Transplant Department [address] [place] [address] Carin Berrios, LASHANDA 02/22/2024 12:17 PM EST - 02/22/2024 1:25 PM EST Surgery [facility] Heart and Vascular Interventional Lab [address] [place] [address] Sis Velazquez MD Venogram with possible use of Moderate Sedation 02/22/2024 12:29 PM EST - 02/22/2024 5:38 PM EST Hospital Encounter [facility] Heart and Vascular Interventional Lab [address] [place] [address] Sis Velazquez MD Chronic superior vena cava occlusion Discharge Disposition: Home or Self Care (01) 02/21/2024 Buckt Message [facility] Vascular Surgery [address] [place] [phone] System Manager: Laura Chow NP Venogram Instructions 02/20/2024 11:00 AM EST Follow-Up [facility] Liver Transplant Services [address] [place] [address] Joycelyn Becerra MD Encounter for pre-transplant evaluation for liver transplant (Primary Dx); Hyperkalemia; Primary biliary cholangitis (HCC); Biliary cirrhosis (CMS/HCC) (HCC); History of liver transplant (CMS/HCC) (HCC) 01/30/2024 3:00 PM EDT Office Visit [facility] Vascular Surgery [address] [place] [address] System Manager: Sis Ruvalcaba MD Venous obstruction (Primary Dx) 01/28/2024 [employer] Message [facility] Liver Transplant Services [address] [place] [address] Ida Coon, RN Labs 01/28/2024 Orders Only [facility] Transplant Department [address] [place] [address] Ida Coon, RN History of liver transplant (CMS/HCC) (HCC) (Primary Dx); Encounter for immunosuppression management after liver transplant (HCC) 01/24/2024 Orders Only [facility] Transplant Department [address] [place] [address] Ida Coon, RN History of liver transplant (CMS/HCC) (HCC) (Primary Dx); Encounter for immunosuppression management after liver transplant (HCC) from Last 3 Months Allergies Active Allergy Reactions Criticality Noted Date Comments Hydromorphone Hallucinations,Oth er (see comments) Medium 04/23/2015 MS changes -- hallucination Losartan Rash Low 09/28/2023 Sulfa (Sulfonamide Antibiotics) Rash Low 04/23/2015 Medications gabapentin (NEURONTIN) 300 mg capsule Orally Active ondansetron (ZOFRAN ODT) 4 mg disintegrating tablet SMARTSI Tablet(s) By Mouth Every 8 Hours PRN 03/03/20 23 Active colesevelam (WELCHOL) 625 mg tablet 03/22/20 23 Active tacrolimus (PROGRAF) 0.5 mg capsule 07/30/19 24 Active furosemide (LASIX) 40 mg tablet 06/30/19 24 Active furosemide (LASIX) 20 mg tablet 1 tablet every 24 hours. Active magnesium gluconate (MAGONATE) 27.5 mg magne- sium (500 mg) tablet Take 500 mg by mouth once a day. Active Galzin 50 mg (zinc) capsule 11/30/19 23 Active esomeprazole (NexIUM) 40 mg capsule ON HOLD. 06/20/19 24 Active cyanocobalamin 1,000 mcg tablet Take 1,000 mcg by mouth once a day. Active cholecalciferol (VITAMIN D3) 1,000 unit tablet Take 1,000 Units by mouth once a day. Active simethicone (MYLICON) 80 mg chewable tablet Chew and swallow 80 mg by mouth every 6 hours as needed for flatulence. Active pyridoxine (VITAMIN B6) 25 mg tablet Take 25 mg by mouth once a day. Active spironolactone (ALDACTONE) 50 mg tablet Take 2 tablets (100 mg total) by mouth once a day. 60 tablet 11 11/07/19 24 025 Active hydrOXYzine HCL (ATARAX) 10 mg tablet SMARTSI Tablet(s) By Mouth 3 Times Daily PRN 12/05/19 24 Active ursodioL (ACTIGALL) 500 mg tablet 11/11/19 24 Active amoxicillin (AMOXIL) 500 mg capsule Amoxicillin Active buPROPion XL (WELLBUTRIN XL) 150 mg tablet TAKE 1 TABLET BY MOUTH EVERY DAY WITH 300 MG DOSE TO MAKE 450 MG DAILY 02/13/20 Active buPROPion XL (WELLBUTRIN XL) 300 mg tablet 01/27/20 Active Active Problems Problem Noted Date Diagnosed Date Chronic superior vena cava occlusion 12/25/2023 Social History Tobacco Use Types Packs/Day Years Used Date Smoking Tobacco: Former Cigarettes Smokeless Tobacco: Never Tobacco Cessation:Counseling Given: Not Answered Alcohol Use Standard Drinks/Week Comments Never 0 (1 standard drink = 0.6 oz pur e alcohol) Comments Unknown Sex and Gender Information Value Date Recorded Sex Assigned at Female 12/01/2023 12:25 PM EDT Legal Sex Female 12:06 AM EDT Gender Identity Female 12/19/2023 8:48 AM EDT Sexual Orientation Straight 12/19/2023 8: 48 AM EDT Last Filed Vital Signs Vital Sign Reading Time Taken Comments Blood Pressure 110/73 03/19/2024 11:23 AM EST Pulse 96 03/19/2024 11:23 AM EST Temperature 37.3 ??C (99.1 ??F) 03/19/2024 11:[address] Respiratory Rate 20 03/19/2024 11:23 AM EST Oxygen Saturation 99% 03/19/2024 11:23 AM EST Inhaled Oxygen Concentration - - Weight 50.6 kg (111 lb 8.8 oz) 03/19/2024 11:23 AM EST Height 149.9 cm (4' 11 ) 02/22/2024 2:33 PM EST Body Mass Index 22.53 02/22/2024 2:33 PM EST Plan of Treatment Upcoming Encounters Date Type Department Care Team (Late st Contact Info) Description 06/18/2024 10:30 AM EDT Follow-Up [facility] Liver Transplant Services [address] [place] [address] Joycelyn Becerra MD [address] [place] [address] 06/18/2024 11:00 AM EDT Nutrition [facility] Renal Transplant [address] [place] [address] [facility] [employer] [place], [place] Procedures * Due to [place] state law, this organization might not be sharing negative HIV tests. Procedure Name Priority Date/Time Associated Diagnosis Comments CBC Routine 03/19/2024 1:10 PM EST Primary biliary cholangitis (HCC) COMPREHENSIVE METABOLIC PANEL Routine 03/19/2024 1:10 PM EST Primary biliary cholangitis (HCC) PROTIME-INR Routine 03/19/2024 1:10 PM EST Primary biliary cholangitis (HCC) MAGNESIUM Routine 03/19/2024 1:10 PM EST Primary biliary cholangitis (HCC) VITAMIN A (RETINOL) Routine 03/19/2024 1 :10 PM EST Primary biliary cholangitis (HCC) VITAMIN D, 25-HYDROXY, TOTAL, IMMUNOASSAY Routine 03/19/2024 1:10 PM EST Primary biliary cholangitis (HCC) INVASIVE VASCULAR PROCEDURE Routine 02/22/2024 4:00 PM EST Chronic superior vena cava occlusion POCT I-STAT CHEMISTRY 8 PANEL Routine 02/22/2024 2:42 PM EST CBC Routine 02/20/2024 12:08 PM EST Encounter for pre-transplant evaluation for liver transplant Hyperkalemia COMPREHENSIVE METABOLIC PANEL Routine 02/20/2024 12:08 PM EST Encounter for pre-transplant evaluation for liver transplant Hyperkalemia PROTIME-INR Routine 02/20/2024 12:08 PM EST Encounter for pre-transplant evaluation for liver transplant Hyperkalemia TACROLIMUS LEVEL Routine 02/01/2024 8:57 AM EDT History of liver transplant (CMS/HCC) (HCC) Encounter for immunosuppression management after liver transplant (HCC) MAGNESIUM Routine 02/01/2024 8:57 AM EDT History of liver transplant (CMS/HCC) (HCC) COMPREHENSIVE METABOLIC PANEL Routine 02/01/2024 8:57 AM EDT History of liver transplant (CMS/HCC) (HCC) CBC AUTO DIFFERENTIAL Routine 02/01/2024 8:57 AM EDT History of liver transplant (CMS/HCC) (HCC) from Last 3 Months Results * Due to [place] state law, this organization might not be sharing negative HIV tests. * Vitamin A (Retinol) (03/19/2024 1:10 PM EST) Vitamin A (Retinol) 44 38 - 98 mcg/dL 03/22/2024 5:19 PM EST [facility] TOWNSEND) Comment: Vitamin supplementation within 24 hours prior to blood draw may affect the accuracy of the results. This test was developed and its analytical performance characteristics have been determined by [email or web address] [place], [place]. It has not been cleared or approved by the U.S. Food and Drug Administration. This assay has been validated pursuant to the CLIA regulations and is used for clinical purposes. Blood Structure of peripheral vein / Unknown Venipuncture / Unknown 03/19/2024 1:10 PM EST 03/19/2024 1:50 PM EST Narrative [facility] TOWNSEND) - 03/22/2024 5:19 PM EST [facility] Received Date: us Joycelyn Becerra MD LAB BLOOD ORDERABLES Final Resul t IDA BRAVO (YADI) [address] [place], [place] , [place] * (ABNORMAL) Vitamin D, 25-Hydroxy, Total, Immunoassay (03/19/2024 1:10 PM EST) Calcidiol+ercalc idiol 29(L) 30 - 100 ng/mL 03/19/2024 11:16 PM EST [facility] Comment: Vitamin D Status ? 25-OH Vitamin D: Deficiency: ?<20 ng/mL Insufficiency: ? 20 - 29 ng/mL Optimal: ? > or = 30 ng/mL For 25-OH Vitamin D testing on patients on D2-supplementation and patients for whom quantitation of D2 and D3 fractions is required, the QuestAssureD(TM) 25-OH VIT D, (D2,D3), LC/MS/MS is recommended: order code 80878 (patients >2yrs). See Note 1 Note 1 For additional information, please refer to http://education.[employer]/faq/INN721 (This link is being provided for informational/ educational purposes only.) Blood Structure of peripheral vein / Unknown Venipuncture / Unknown 03/19/2024 1:10 PM EST 03/19/2024 1:53 PM EST Narrative [facility] - 03/19/2024 11:16 PM EST [facility] Received Date: us Joycelyn Becerra MD LAB BLOOD ORDERABLES Final Resul t [address], [place] [address], [place] [phone] [facility] [address], [place] [address], [place] [phone] * Protime-INR (03/19/2024 1:10 PM EST) Only the most recent of2 resultswithin the time period is included. PT 12.2 9.6 - 12.4 Seconds 03/19/2024 2:12 PM EST [facility] INR 1.1 0.9 - 1.1 03/19/2024 2:12 PM EST [facility] Comment:The optimal therapeu tic INR range for patients treated with Vitamin K antagonists (VKAS, e.g., Warfarin) is 2.0 to 3.5. Discuss the desired range with your doctor/care team. Blood Structure of peripheral vein / Unknown Venipuncture / Unknown 03/19/2024 1:10 PM EST 03/19/2024 1:53 PM EST us Joycelyn Becerra MD LAB BLOOD ORDERABLES Final Resul t [facility] [address] [place] [address], [place] * (ABNORMAL) CBC (03/19/2024 1:10 PM EST) Only the most recent of2 resultswithin the time period is included. WBC 3.6(L) 3.8 - 10.8 10*3/uL 03/19/2024 2:09 PM EST [facility] RBC 3.62(L) 3.80 - 5.10 10*6/uL 03/19/2024 2:09 PM EST [facility] Hemoglobin 10.0(L) 11.7 - 15.5 g/dL 03/19/2024 2:09 PM EST [facility] Hematocrit 32.4(L) 35.0 - 45.0 % 03/19/2024 2:09 PM EST [facility] MCV 89.5 80.0 - 100.0 fL 03/19/2024 2:09 PM EST [facility] MCH 27.6 27.0 - 33.0 pg 03/19/2024 2:09 PM EST [facility] MCHC 30.9(L) 32.0 - 36.0 g/dL 03/19/2024 2:09 PM EST [facility] RDW 15.9(H) 11.0 - 15.0 % 03/19/2024 2:09 PM EST [facility] Platelets 82(L) 140 - 400 10*3/uL 03/19/2024 2:09 PM EST [facility] MPV 10.7 7.5 - 12.5 fL 03/19/2024 2:09 PM EST [facility] Blood Structure of peripheral vein / Unknown Venipuncture / Unknown 03/19/2024 1:10 PM EST 03/19/2024 1:53 PM EST Joycelyn Becerra MD LAB BLOOD ORDERABLES Final Resul t Performing Organization Address City/[facility]/ZIP Co de Phone Number [facility] [address] [place] [address], * Magnesium (03/19/2024 1:10 PM EST) Only the most recent of2 resultswithin the time period is included. MG 2.0 1.6 - 2.4 mg/dL 03/19/2024 2:24 PM EST [facility] Blood Structure of peripheral vein / Unknown Venipuncture / Unknown 03/19/2024 1:10 PM EST 03/19/2024 1:53 PM EST Joycelyn Becerra MD LAB BLOOD ORDERABLES Final Resul t Performing Organization Address City/[facility]/ZIP Co de Phone Number [facility] [address] [place] [address], * (ABNORMAL) Comprehensive Metabolic Panel (03/19/2024 1:10 PM EST) Only the most recent of3 resultswithin the time period is included. NA 136 135 - 145 mmol/L 03/19/2024 2:24 PM EST [facility] K 4.6 3.5 - 5.3 mmol/L 03/19/2024 2:24 PM EST [employer] [place] [facility] Cl 105 98 - 107 mmol/L 03/19/2024 2:24 PM EST [facility] CO2 21(L) 22 - 32 mmol/L 03/19/2024 2:24 PM EST [facility] Anion Gap 10 5 - 15 03/19/2024 2:24 PM EST [facility] Glucose 107(H) 65 - 99 mg/dL 03/19/2024 2:24 PM EST [facility] Creatinine 1.05 0.50 - 1.20 mg/dL 03/19/2024 2:24 PM EST [facility] Calcium 9.2 8.6 - 10.5 mg/dL 03/19/2024 2:24 PM EST [facility] Total Protein 7.4 6.0 - 8.0 g/dL 03/19/2024 2:24 PM EST [facility] Albumin 3.6 3.5 - 5.2 g/dL 03/19/2024 2:24 PM EST [facility] Bilirubin, Total 0.8 0.2 - 1.2 mg/dL 03/19/2024 2:24 PM EST [facility] Alkaline Phosphatase 162(H) 35 - 129 U/L 03/19/2024 2:24 PM EST [facility] AST 35 10 - 40 U/L 03/19/2024 2:24 PM EST [facility] ALT 22 10 - 40 U/L 03/19/2024 2:24 PM EST [facility] BUN 50(H) 7 - 23 mg/dL 03/19/2024 2:24 PM EST [facility] eGFR 58(L) >=60 mL/min/1. 73m2 03/19/2024 2:24 PM EST [facility] Comment:The estimated glomer ular filtration rate (eGFR) is calculated using a new formula developed by the NKF-ASN task force to eliminate race-based correction factors. The new formula uses serum/plasma creatinine, age, and gender to determine eGFR. A value below 60mls/min might indicate kidney disease and will be flagged. For additional information, see Debra et al, Am J Kidney Dis. 2021;79(2):268- 288, A Unifying Approach for GFR estimation: Recommendations of the NKF-ASN Task Force on Reassessing the Inclusion of Race in Diagnosing Kidney Disease . Globulin, Total 3.8 2.1 - 4.2 g/dL 03/19/2024 2:24 PM EST [facility] A/G Ratio 0.9(L) 1.5 - 3.0 03/19/2024 2:24 PM EST [facility] Blood Structure of peripheral vein / Unknown Venipuncture / Unknown 03/19/2024 1:10 PM EST 03/19/2024 1:53 PM EST us Joycelyn Becerra MD LAB BLOOD ORDERABLES Final Resul t Performing Organization Address City/State/[facility] Co de Phone Number [facility] [address] [place] [phone], * VENOGRAM (02/22/2024 4:00 PM EST) Anatomical Region Laterality Modality X-Ray Angiograph y Narrative 02/22/2024 5:55 PM EST Diagnostic bilateral upper extremity venogram Procedure Details [facility] Invasive Laboratory Vascular Procedure Report Clinical History/Reason for Exam: Praveena Douglass is a 68 y.o. female who presents for venography and intravascular ultrasound with possible endovascular intervention for attempt at recanalization of proximal central venous system to determine if there is an outflow option for possible anesthesia support for redo liver transplant. She has a history of liver transplant and occlusions of her IJ veins, we therefore planned for upper extremity access to determine if there was a central venous pathway that drained into the SVC. Risk minutes were explained the patient wished to proceed. 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 Ultrasound-guided access to right basilic vein with images saved and uploaded to PACS 2. Right upper extremity venogram 3. Ultrasound-guided access to left basilic vein with images saved and uploaded PACS 4. Left upper extremity venogram Surgeons and Role: * Sis Velazquez MD - Primary * Jaron Baker MD - Resident - Assisting Resident Surgeon: As above. Statement of Attending Surgeon's Presence: The attending surgeon, Sis Velazquez MD, was present during the entire procedure. Staff: HV X-Ray Technologist: Fay Sears; Leslie Rodriguez, RT(R) HV Cash Van Salesperson: Kristopher Laguerre RN HV Documenter: Sydnie Aguilar RN Anesthesia and Moderate Sedation: Moderate sedation was utilized during this procedure. Pre-sedation history and evaluation revealed no contraindications to moderate sedation. The patient received lidocaine, benzodiazepines and/or opioids, the dosing of which is documented in the patient's permanent medical record. The procedural nursing staff and Sis Velazquez MD monitored the patient's level of consciousness and physiologic status continuously throughout the procedure. Total intra-service moderate sedation time was 0 Hr 28 Min 28 Sec minutes. ASA: ASA status not filed in the log. Estimated Blood Loss: 10 mL Implants: * No implants in log * Radiographic Findings: Bilateral axillary and subclavian veins are chronically occluded. Drainage is via chest wall collaterals that ultimately drained via the azygos vein. Procedure in detail: The patient was placed in a supine position on the angiography table. Physiologic monitoring was initiated. Moderate sedation for patient comfort and analgesia was provided at the direction and constant supervision of the attending surgeon. The bilateral upper extremitieswere prepped and draped utilizing CHG. A time out was called. With ultrasound guidance, the right basilic vein was then accessed with a micropuncture needle and image was saved and uploaded to PACS. Micropuncture wire was advanced and the micropuncture needle was exchanged out for micropuncture sheath. We then shot a right upper extremity venogram. This delineated the basilic vein draining into a collateral vein. I then upsized to a short 4 Bengali sheath. I then advanced a glide catheter and a Glidewire. I was unable to advance into any central system. We then removed the catheter and sheath and manual pressure was held. We then turned attention to his left arm. Again under ultrasound guidance left side vein was accessed with a micropuncture needle and image was saved and uploaded to PACS. Micropuncture wire was advanced micropuncture needle was exchanged for micropuncture sheath. We then shot a left upper extremity venogram. This also delineated the basilic vein draining to left collateral vein along the chest wall. Interestingly enough, this vein then drained into the azygous vein. There were no branches or collateral access points. The sheath was removed and manual pressure was held. A sterile dressing was applied. The patient was transferred to the recovery area in satisfactory condition. Impression: Venogram of the bilateral upper extremities. Complications: None Post Procedure Plan/Follow up: I will reach out to my transplant and anesthesia colleagues, she will follow-up with them for further evaluation. No vascular surgery follow-up as needed. us Sis Velazquez MD CV INVASIVE VASCULAR PROCED URES Final Result * (ABNORMAL) POCT I-STAT Chemistry 8 Panel, interfaced (02/22/2024 2:42 PM EST) Sample Type, POCT Venous 024 2:46 PM EST [facility] Sodium, POCT 141 135 - 145 mmol/L 02/22/2024 2:46 PM EST [facility] Potassium, POCT 4.5 3.5 - 5.3 mmol/L 02/22/2024 2:46 PM EST [facility] Chloride, POCT 107 97 - 110 mmol/L 02/22/2024 2:46 PM EST [facility] TCO2, POCT 23(L) 24 - 32 mmol/L 02/22/2024 2:46 PM EST [facility] Anion Gap, POCT 11 5 - 15 mmol/L 02/22/2024 2:46 PM EST [facility] iCA, POCT 4.8 4.6 - 5.3 mg/dL 02/22/2024 2:46 PM EST [facility] Glucose, POCT 71 70 - 99 mg/dL 02/22/2024 2:46 PM EST [facility] BUN, POCT 27(H) 7 - 23 mg/dL 02/22/2024 2:46 PM EST [facility] Creatinine, POCT 1.0 0.5 - 1.2 mg/dL 02/22/2024 2:46 PM EST [facility] eGFR 61 >=60 mL/min/1. 73m2 02/22/2024 2:46 PM EST [facility] Comment:The estimated glomer ular filtration rate (eGFR) is calculated using a new formula developed by the NKF-ASN task force to eliminate race-based correction factors. The new formula uses serum/plasma creatinine, age, and gender to determine eGFR. A value below 60mls/min might indicate kidney disease and will be flagged. For additional information, see Debra et al, Am J Kidney Dis. 2021;79(2):268- 288, A Unifying Approach for GFR estimation: Recommendations of the NKF-ASN Task Force on Reassessing the Inclusion of Race in Diagnosing Kidney Disease . HCT, POCT 32(L) 37 - 42 % 02/22/2024 2:46 PM EST [facility] Blood 02/22/2024 2:42 PM EST 02/22/2024 2:46 PM EST Narrative [facility] - 02/22/2024 2:46 PM EST i-STAT analyzer cannot determine presence of hemolysis in sample us Sis Velazquez MD LAB POCT ORDERABLES - DEVIC E Final Result [facility] [address] [place] [address], * (ABNORMAL) CBC Auto Differential (02/01/2024 8:57 AM EDT) White Blood Cell Count 4.9 3.8 - 10.8 Thousand/ uL 02/01/2024 11:00 PM EDT [facility] Red Blood Cell Count 3.85 3.80 - 5.10 Million/u L 02/01/2024 11:00 PM EDT [facility] Hemoglobin 10.9(L) 11.7 - 15.5 g/dL 02/01/2024 11:00 PM EDT [facility] Hematocrit 34.0(L) 35.0 - 45.0 % 02/01/2024 11:00 PM [employer] [facility] MCV 88.3 80.0 - 100.0 fL 02/01/2024 11:00 PM [facility] MCH 28.3 27.0 - 33.0 pg 02/01/2024 11:00 PM [employer] [facility] MCHC 32.1 32.0 - 36.0 g/dL 02/01/2024 11:00 PM [employer] [facility] Comment: For adults, a slight decrease in the calculated MCHC value (in the range of 30 to 32 g/dL) is most likely not clinically significant; however, it should be interpreted with caution in correlation with other red cell parameters and the patient's clinical condition. RDW 16.3(H) 11.0 - 15.0 % 02/01/2024 11:00 PM [employer] [facility] Platelet Count 131(L) 140 - 400 Thousand/ uL 02/01/2024 11:00 PM [employer] [facility] MPV 10.8 7.5 - 12.5 fL 02/01/2024 11:00 PM [employer] [facility] Absolute Neutrophils 3,420 1,500 - 7,800 cells/uL 02/01/2024 11:00 PM [employer] [facility] Absolute Lymphocytes 637(L) 850 - 3,900 cells/uL 02/01/2024 11:00 PM [facility] [facility] Absolute Monocytes 666 200 - 950 cells/uL 02/01/2024 11:00 PM [facility]al [facility] Absolute Eosinophils 147 15 - 500 cells/uL 02/01/2024 11:00 PM [facility] Absolute Basophils 29 0 - 200 cells/uL 02/01/2024 11:00 PM [facility] Neutrophils 69.8 % 02/01/2024 11:00 PM [facility] Lymphocytes 13.0 % 02/01/2024 11:00 PM [facility] Monocytes 13.6 % 02/01/2024 11:00 PM [facility] Eosinophils 3.0 % 02/01/2024 11:00 PM EDT [facility] Basophils 0.6 % 02/01/2024 11:00 PM EDT [facility] Blood Structure of peripheral vein / Unknown 02/01/2024 8:57 AM EDT 02/01/2024 8:55 PM EDT us Joycelyn Becerra MD LAB BLOOD ORDERABLES Final Resul t Performing Organization Address City/[facility]/ZIP Co de Phone Number [facility] [address], [place] [address], [place] [phone] [facility] [address] [place] [address] * (ABNORMAL) Tacrolimus level (02/01/2024 8:57 AM EDT) [facility] Tacrolimus, Highly Sensitive 3.6(L) mcg/L 02/02/2024 9:02 AM EDT [facility] Comment: No definitive therapeutic or toxic ranges have been established. Optimal blood drug levels are influenced by type of transplant, patient response, time post- transplant, co-administration of other drugs, and drug formulation. The following trough range is a suggested guideline: 5.0-20.0 mcg/L. This test was developed and its analytical performance characteristics have been determined by [employer]. It has not been cleared or approved by the FDA. This assay has been validated pursuant to the CLIA regulations and is used for clinical purposes. Blood Structure of peripheral vein / Unknown 02/01/2024 8:57 AM EDT 02/01/2024 8:45 PM EDT us Joycelyn Becerra MD LAB BLOOD ORDERABLES Final Resul t Performing Organization Address City/[facility]/ZIP Co de Phone Number [facility] [address], [place] [address], [place] [phone] [facility] [address] [place] [address] from Last 3 Months Insurance [employer] MEDICARE Member Subscriber Plan / Payer (Ef fective 2017-Present) Name:Rafat Praveena Owen Member ID:[id number] Relation to Subscriber:Self Name:Praveena Douglass Subscriber ID:[id number] Payer ID:[id number] Group ID:Not on file Type:Not on file Address: [address] MEDICARE FOR LIFE Advance Directives Documents on File Type Date Recorded Patient Wicker M[employer] [facility] Proxy 11/21/2023 2:03 PM 06-19 * Full Code (Latest Code Status on File) Date Activated Date Inactivated Comments 02/22/2024 5:17 PM 02/22/2024 7:43 PM * Full Code Date Activated Date Inactivated Comments 02/22/2024 2:16 PM 02/22/2024 5:17 PM Care Teams Chyron Operator Relationship Specialty Start Date End Date Taylor [place]ata [place] [address] PCP - General Internal Medicine 12/01/23
--- OUTSIDE RECORDS SUMMARY | 2024-04-25 12:14 | XMS_ITS ---
Author Organization [facility] Address [address] [place] [address] Care Team Providers Care Cash Teller Name Role Phone Taylor Zapata Primary Care Provider [phone] Transplant Episode Liver Recipient [facility] ([place], [place]) - [facility] Transplanted on 09/30/2015 Marked as Active Follow-up on 09/30/2015 Liver CoordinatorIda Coon RN Phone: N/A Fax: N/A Email: N/A Transplanted Elsewhere: [facility] ([place], [place]) - [facility] Coordinator: Phone: Fax: [place] Organ Diagnosis Organ Primary Contributory Liver Primary Biliary Cirrhosis (PBC) Care Team Name Role Phone Fax Email Ida Coon RN Liver Coordinator N/A N/A N/A Events Post-Transplant Pre-Transplant Transplanted: 09/30/2015
--- OUTSIDE RECORDS SUMMARY | 2024-04-25 12:14 | XMS_ITS | Encounter Summary ---
Author Organization [facility] Address [address] [place] [address] Care Team Providers Care Hospital Mortician Name Role Phone Taylor Zapata Primary Care Provider [phone] Encounter Details Date Type Department Care Team (Late st Contact Info) Description 03/27/2024 Telephone [facility] Transplant Department [address] [place] [address] Ida Coon, RN Social History Tobacco Use Types Packs/Day Years [...] AM EDT documented as of this encounter Miscellaneous Notes * Telephone Encounter - Ida Coon RN - 03/27/2024 10:43 AM EST Spoke with pt's daughter Denice. She states that since Sunday her mother has not been able to walk straight and her balance is off. She states that she is shaking so much that she cannot hold a cup andshe is dropping things. She states that she had a few slurred words but just seems out of it. I encouraged Denice to take her mother to the ER. She states that her mother wouldn't go yesterday but she will do her best to get her to go today. She will let me know where they end up going. ----- Message from Nae E sent at 03/27/2024 10:06 AM EST ----- Sukumar Solis, Pt's daughter calling Denice she said that her mom is acting differently. For the past couple of daysromeo has noticed she is shaky, her gait is not right, slurred speech a bit foggy. She had her mom count 10-0 backwards and she did good, her memory is ok. She is calling wanting to know if you can send an order to check her amonia and prograff levels. To start to see if that is the problem. Denice [phone] Nae documented in this encounter Plan of Treatment Upcoming Encounters Date Type Department Care Team (Late st Contact Info) Description 06/18/2024 10:30 AM EDT Follow-Up [facility] Liver Transplant Services [address] [place] [address] Joycelyn Becerra MD [address] [place] [address] 06/18/2024 11:00 AM EDT Nutrition [facility] Renal Transplant [address] [place] [address] [facility] [place], [place] documented as of this encounter Visit Diagnoses Not on filedocumented in this encounter Care Teams Hospital Mortician Relationship Specialty Start Date End Date Taylor Zapata [address] [place] [address] PCP - General Internal Medicine 12/01/23 documented as of this encounter
--- OUTSIDE RECORDS SUMMARY | 2024-04-25 12:14 | XMS_ITS | Continuity of Care Document ---
Author Name [facility] Organization [facility] Care Team Providers Care Digital Publishing Specialist Name Role Phone [facility] Unavailable Unavailable Medications Combined list of outpatient [...] [facility]AN [facility], 1 ea. BOX Cancele d [id number] : 2023 0 Pharmac y Data Transac tion Service Facilit y NICHELLE AEROSOL CLOUD ENHANCER (inhaler, assist devices), SPACER, MISCELL, [facility], 1 ea. BOX Cancele d [id number] : 2023 0 Pharmac y Data Transac tion Service Facilit y NICHELLE AEROSOL CLOUD ENHANCER (inhaler, assist devices), SPACER, MISCELL, MYLAN SPECIALTY, 1 ea. BOX Active [id number] 2023 1 Pharmac y Data Transac tion Service Facilit y ALBUTEROL SULFATE HFA (albuterol sulfate), 90 MCG, HFA AER AD, INHALATION, [employer] 6.7 g CANISTER Cancele d [id number] : 2023 0 Pharmac y Data Transac tion Service Facilit y ALBUTEROL SULFATE HFA (albuterol sulfate), 90 MCG, HFA AER AD, INHALATION, [employer] 6.7 g CANISTER Active [id number] 2023 6.7 Pharmac y Data Transac tion Service Facilit y ALBUTEROL SULFATE HFA (albuterol sulfate), 90 MCG, HFA AER AD, INHALATION, [facility], 6.7 g CANISTER Cancele d [id number] : 2023 0 Pharmac y Data Transac tion Service Facilit y ALENDRONATE SODIUM (alendronat e sodium), 70 MG, TABLET, ORAL, RISING PHARM, 4 ea. BLIST PACK Active [id number] 2023 12 Pharmac y Data Transac tion Service Facilit y AMOXICILLIN (AMOXICILLI N), 500 MG, CAPSULE, ORAL, AUROBINDO PHARM, 500 ea. BOTTLE Cancele d [id number] : 2023 0 Pharmac y Data Transac tion Service Facilit y AMOXICILLIN (AMOXICILLI N), 500 MG, CAPSULE, ORAL, AUROBINDO PHARM, 500 ea. BOTTLE Active [id number] 2023 4 Pharmac y Data Transac tion Service Facilit y BUPROPION XL (bupropion HCl), 300 MG, TAB ER 24H, ORAL, LUPIN PHARMACEU, 500 ea. BOTTLE Cancele d [id number] : 2023 0 Pharmac y Data Transac tion Service Facilit y BUPROPION XL (bupropion HCl), 300 MG, TAB ER 24H, ORAL, LUPIN PHARMACEU, 500 ea. BOTTLE Active [id number] 2023 90 Pharmac y Data Transac tion Service Facilit y BUPROPION XL (bupropion HCl), 300 MG, TAB ER 24H, ORAL, LUPIN PHARMACEU, 500 ea. BOTTLE Cancele d [id number] : 2022 0 Pharmac y Data Transac tion Service Facilit y BUPROPION XL (bupropion HCl), 300 MG, TAB ER 24H, ORAL, SLATE RUN PHARM, 500 ea. BOTTLE Cancele d [id number] : 2022 0 Pharmac y Data Transac tion Service Facilit y CEFUROXIME (CEFUROXIME AXETIL), 500 MG, TABLET, ORAL, AUROBINDO PHARM, 20 ea. BOTTLE Active [id number] 2023 24 Pharmac y Data Transac tion Service Facilit y COLESEVELAM HCL (colesevela m HCl), 625 MG, TABLET, ORAL, JAEL PHARMAC, 180 ea. BOTTLE Cancele d [id number] : 2023 0 Pharmac y Data Transac tion Service Facilit y COLESEVELAM HCL (colesevela m HCl), 625 MG, TABLET, ORAL, JAEL PHARMAC, 180 ea. BOTTLE Cancele d [id number] : 2022 0 Pharmac y Data Transac tion Service Facilit y COLESEVELAM HCL (colesevela m HCl), 625 MG, TABLET, ORAL, JAEL PHARMAC, 180 ea. BOTTLE Active [id number] 2022 360 Pharmac y Data Transac tion Service Facilit y COLESEVELAM HCL (colesevela m HCl), 625 MG, TABLET, ORAL, JAEL PHARMAC, 180 ea. BOTTLE Active [id number] 2023 360 Pharmac y Data Transac tion Service Facilit y ESOMEPRAZOL E MAGNESIUM (esomeprazo le magnesium), 40 MG, CAPSULE , ORAL, AUROBINDO PHARM, 90 ea. BOTTLE Cancele d [id number] : 2023 0 Pharmac y Data Transac tion Service Facilit y ESOMEPRAZOL E MAGNESIUM (esomeprazo le magnesium), 40 MG, CAPSULE , ORAL, AUROBINDO PHARM, 90 ea. BOTTLE Active [id number] 2023 90 Pharmac y Data Transac tion Service Facilit y ESOMEPRAZOL E MAGNESIUM (esomeprazo le magnesium), 40 MG, CAPSULE , ORAL, AUROBINDO PHARM, 90 ea. BOTTLE Active [id number] 2023 90 Pharmac y Data Transac tion Service Facilit y FLUTICASONE PROPIONATE (FLUTICASON E PROPIONATE) , 50MCG, SPRAY SUSP, NASAL, APOTEX LINDSEY, 16 g AER W/ADAP Cancele d [id number] : 2023 0 Pharmac y Data Transac tion Service Facilit y GABAPENTIN (gabapentin ), 300 MG, CAPSULE, ORAL, XLCARE PHARMACE, 270 ea. BOTTLE Active [id number] 2023 180 Pharmac y Data Transac tion Service Facilit y GALZIN (ZINC ACETATE), 50MG, CAPSULE, ORAL, GATE PHARM, 250 ea. BOTTLE Cancele d [id number] : 2023 0 Pharmac y Data Transac tion Service Facilit y GALZIN (ZINC ACETATE), 50MG, CAPSULE, ORAL, GATE PHARM, 250 ea. BOTTLE Cancele d [id number] : 2023 0 Pharmac y Data Transac tion Service Facilit y GALZIN (ZINC ACETATE), 50MG, CAPSULE, ORAL, GATE PHARM, 250 ea. BOTTLE Cancele d [id number] : 2023 0 Pharmac y Data Transac tion Service Facilit y GALZIN (ZINC ACETATE), 50MG, CAPSULE, ORAL, GATE PHARM, 250 ea. BOTTLE Cancele d [id number] : 2023 0 Pharmac y Data Transac tion Service Facilit y GALZIN (ZINC ACETATE), 50MG, CAPSULE, ORAL, GATE PHARM, 250 ea. BOTTLE Cancele d [id number] : 2023 0 Pharmac y Data Transac tion Service Facilit y ONDANSETRON ODT (ONDANSETRO N), 4 MG, TAB RAPDIS, ORAL, CITRON PHARMA L, 30 ea. BLIST PACK Cancele d [id number] : 2023 0 Pharmac y Data Transac tion Service Facilit y TACROLIMUS (tacrolimus ), 0.5 MG, CAPSULE, ORAL, [employer] 100 ea. BOTTLE Active [id number] 2023 180 Pharmac y Data Transac tion Service Facilit y URSODIOL (URSODIOL), 500 MG, TABLET, ORAL, PAR PHARM., 100 ea. BOTTLE Cancele d [id number] : 2023 0 Pharmac y Data Transac tion Service Facilit y URSODIOL (URSODIOL), 500 MG, TABLET, ORAL, PAR PHARM., 100 ea. BOTTLE Cancele d [id number] : 2023 0 Pharmac y Data Transac tion Service Facilit y URSODIOL (ursodiol), 500 MG, TABLET, ORAL, ZYDUS PHARMACEU, 100 ea. BOTTLE Active [id number] 2023 180 Pharmac y Data Transac tion Service Facilit y Immunizations Combined list of available immunizations from the Department of Defense and Veterans Affairs facilities. Immunization Series Date Given Administered By Site Reaction Lot Number CVX Code Drug Import And Export Clerk Status Comments Source COVID-19, mRNA, LNP-S, PF, 100 mcg or 50 mcg dose 2021 [place] [employer] (MOD) Not Given COVID-19, mRNA, LNP-S, PF, 100 mcg or 50 mcg dose [facility] Influenza vaccine, quadrivalent, adjuvanted 2020 BOGDASARIAN, () Not Given Influenza vaccine, quadrival ent, adjuvante d [facility] Social History Combined list of available smoking, tobacco, and other social history from Department of Defense and Veterans Affairs facilities. Social History Type Response Date Comment Sour e This section is an empty social history section. [facility]
--- OUTSIDE RECORDS SUMMARY | 2024-04-25 12:14 | XMS_ITS | Clinical Summary ---
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 Encounters Date Type Department Care Team Description 04/25/2024 myChart Message [facility] [address] [place] [address] Joycelyn Becerra MD 03/27 ER Visit 03/27/2024 Telephone [facility] Transplant Department [address] [place] [address]149 Ida Coon RN 03/19/2024 12:00 PM EST Nutrition [facility] Renal Transplant [address] [place] [address] 03/19/2024 11:30 AM EST Follow-Up [facility] [address] [place] [address] Joycelyn Becerra MD Liver fibrosis, transplanted liver (CMS/HCC) (HCC) (Primary Dx); Primary biliary cholangitis (HCC); Bilateral subclavian vein occlusion (HCC) 03/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 Telephone [facility] Trans[facility] [address] [place] [address] Carin Berrios, LASHANDA 02/22/2024 12:29 PM EST - 02/22/2024 5:38 PM EST Hospital Encounter [facility] [address] [place] [address]197 Sis Velazquez MD Chronic superior vena cava occlusion Discharge Disposition: Home or Self Care (01) 02/22/2024 12:17 PM EST - 02/22/2024 1:25 PM EST Surgery [facility] [address] [place] [address] Sis Velazquez MD Venogram with possible use of Moderate Sedation 02/21/2024 OnStatehart Message [facility] Surgery [address] [place] [address] Robot Technician: Laura Chow, SALES CONSULTANT Venogram Instructions 02/20/2024 11:00 AM EST Follow-Up [facility] [address] [place] [address] Joycelyn Becerra MD Encounter for pre-transplant evaluation for liver transplant (Primary Dx); Hyperkalemia; Primary biliary cholangitis (HCC); Biliary cirrhosis (CMS/HCC) (HCC); History of liver transplant (CMS/HCC) (HCC) 01/30/2024 3:00 PM EDT Office Visit [facility] [address] [place] [address] Robot Technician: Sis Ruvalcaba MD Venous obstruction (Primary Dx) 01/28/2024 New[facility]ulu USAt Message [facility] [address] [place] [address] Ida Coon, RN Labs 01/28/2024 Orders Only [facility] [address] [place] [address]64 Ida Coon, RN History of liver transplant (CMS/HCC) (HCC) (Primary Dx); Encounter for immunosuppression management after liver transplant (HCC) 01/24/2024 Orders Only [facility] Trans[facility] [address] [place] [address] Ida Coon RN History of liver transplant (CMS/HCC) (HCC) (Primary Dx); Encounter for immunosuppression management after liver transplant (HCC) from Last 3 Months Social History Tobacco Use Types Packs/Day Years [...] Info) Description 06/18/2024 10:30 AM EDT Follow-Up [facility] [address] [place] [address] Joycelyn Becerra MD [address] [place] [address] 06/18/2024 11:00 AM EDT Nutrition [facility] [address] [place] [address] [facility] [place], [place] Health Maintenance Due Date Last Done Comments Cologuard 1954 Colon Cancer Screening 1954 Colonoscopy 1954 FOBT / Fit Test 1954 Sigmoidoscopy 1954 Osteoporosis Screening 2004 Hepatitis B Vaccines (1 of 3 - Risk 3-dose series) 2014 DTaP,Tdap,and Td Vaccines (2 - Td or Tdap) 06/01/2021 06/02/2011 COVID-19 Vaccine (2023-2 5 season) 2024 12/21/2023, 12/29/2022, 03/16/2022, Additional history exists Alcohol/Substance Use Screening 04/02/2024 Depression Screening and Follow-Up 04/02/2024 Fall Risk Screening 04/02/2024 Health Care Proxy Review 04/02/2024 Social Drivers of Health Sarah ual Screening 04/02/2024 CT Lung Cancer Screening (Baseline) 08/30/2024 08/31/2023 Basic Metabolic Panel 03/19/2025 03/19/2024 , 02/20/2024, 02/01/2024, Additional history exists Tobacco Screening 04/02/2042 03/19/2024 Pneumococcal Vaccine: 65+ Years Completed , 03/12/2015 RSV Vaccine (60+ years old a nd patients) Completed 12/29/2022 Zoster Vaccines Completed 12/29/2022, 10/01, 06/03/2015 Hepatitis C Screening Completed 08/18/2023, 024 Influenza Vaccine Completed 12/21/2023, , 01/12/2022, Additional history exists Procedures * Due to [place] state law, this organization might not be [...] Last 3 Months Results * Due to [place] state law, this organization might not be sharing negative HIV tests. * Vitamin A (Retinol) (03/19/2024 1:10 PM EST) Vitamin A (Retinol) 44 38 - 98 mcg/dL 03/22/2024 5:19 PM EST IDA FORMANOLS) Comment: Vitamin supplementation within 24 hours prior to blood draw may affect the accuracy of the results. This test was developed and its analytical performance characteristics have been determined by [facility] [place], [place]. It has not been cleared or approved by the U.S. Food and Drug Administration. This assay has been validated pursuant to the CLIA regulations and is used for clinical purposes. Blood Structure of peripheral vein / Unknown Venipuncture / Unknown 03/19/2024 1:10 PM EST 03/19/2024 1:50 PM EST Narrative IDA LAWRENCE KRISTIAN) - 03/22/2024 5:19 PM EST [facility] Received Date: us Joycelyn Becerra MD LAB BLOOD ORDERABLES Final Resul t IDA TOWNSEND) [address] [place], [place] , [place] * (ABNORMAL) Vitamin D, 25-Hydroxy, Total, Immunoassay (03/19/2024 1:10 PM EST) Calcidiol+ercalc idiol 29(L) 30 - 100 ng/mL 03/19/2024 11:16 PM EST [facility] Comment: Vitamin D Status ? 25-OH Vitamin D: Deficiency: ?<20 ng/mL Insufficiency: ? 20 - 29 ng/mL Optimal: ? > or = 30 ng/mL For 25-OH Vitamin D testing on patients on D2-supplementation and patients for whom quantitation of D2 and D3 fractions is required, the QuestAssureD(TM) 25-OH VIT D, (D2,D3), LC/MS/MS is recommended: order code 81949 (patients >2yrs). See Note 1 Note 1 For additional information, please refer to http://education.ContextWeb/faq/KFN861 (This link is being provided for informational/ educational purposes only.) Blood Structure of peripheral vein / Unknown Venipuncture / Unknown 03/19/2024 1:10 PM EST 03/19/2024 1:53 PM EST Narrative [facility] 03/19/2024 11:16 PM EST [facility] Received Date: us Joycelyn Becerra MD LAB BLOOD ORDERABLES Final Resul t Performing Organization Address City/[facility]/ZIP Co de Phone Number [facility] [address] [facility] [address] [facility], [place] [address], [place] [phone] [facility] [address], [place] [address], [place] [phone] * Protime-INR (03/19/2024 1:10 PM EST) Only the most recent of2 resultswithin the time period is included. PT 12.2 9.6 - 12.4 Seconds 03/19/2024 2:12 PM EST [facility] INR 1.1 0.9 - 1.1 03/19/2024 2:12 PM EST [facility] Comment:The optimal therapeu tic INR range for patients treated with Vitamin K antagonists (VKAS, e.g., Warfarin) is 2.0 to 3.5. Discuss the desired range with your doctor/care team. Blood Structure of peripheral vein / Unknown Venipuncture / Unknown 03/19/2024 1:10 PM EST 03/19/2024 1:53 PM EST us Joycelyn Becerra MD LAB BLOOD ORDERABLES Final Resul t [facility] [address] [place] [address], * (ABNORMAL) CBC (03/19/2024 1:10 PM EST) Only the most recent of2 resultswithin the time period is included. WBC 3.6(L) 3.8 - 10.8 10*3/uL 03/19/2024 2:09 PM EST [facility] RBC 3.62(L) 3.80 - 5.10 10*6/uL 03/19/2024 2:09 PM EST [facility] Hemoglobin 10.0(L) 11.7 - 15.5 g/dL 03/19/2024 2:09 PM EST [facility] Hematocrit 32.4(L) 35.0 - 45.0 % 03/19/2024 2:09 PM EST [facility] MCV 89.5 80.0 - 100.0 fL 03/19/2024 2:09 PM EST [facility] MCH 27.6 27.0 - 33.0 pg 03/19/2024 2:09 PM EST [facility] MCHC 30.9(L) 32.0 - 36.0 g/dL 03/19/2024 2:09 PM EST [facility] RDW 15.9(H) 11.0 - 15.0 % 03/19/2024 2:09 PM EST [facility] Platelets 82(L) 140 - 400 10*3/uL 03/19/2024 2:09 PM EST [facility] MPV 10.7 7.5 - 12.5 fL 03/19/2024 2:09 PM EST [facility] Blood Structure of peripheral vein / Unknown Venipuncture / Unknown 03/19/2024 1:10 PM EST 03/19/2024 1:53 PM EST us Joycelyn Becerra MD LAB BLOOD ORDERABLES Final Resul t Performing Organization Address [facility] Co de Phone Number [facility] [address] [place] [address], * Magnesium (03/19/2024 1:10 PM EST) Only the most recent of2 resultswithin the time period is included. MG 2.0 1.6 - 2.4 mg/dL 03/19/2024 2:24 PM EST [facility] Blood Structure of peripheral vein / Unknown Venipuncture / Unknown 03/19/2024 1:10 PM EST 03/19/2024 1:53 PM EST us Joycelyn Becerra MD LAB BLOOD ORDERABLES Final Resul t Performing Organization Address [facility] Co de Phone Number [facility] [address] [place] [address], * (ABNORMAL) Comprehensive Metabolic Panel (03/19/2024 1:10 PM EST) Only the most recent of3 resultswithin the time period is included. NA 136 135 - 145 mmol/L 03/19/2024 2:24 PM EST [facility] K 4.6 3.5 - 5.3 mmol/L 03/19/2024 2:24 PM EST [facility] Cl 105 98 - 107 mmol/L 03/19/2024 2:24 PM EST [facility] CO2 21(L) 22 - 32 mmol/L 03/19/2024 2:24 PM EST [facility] Anion Gap 10 5 - 15 03/19/2024 2:24 PM EST [facility] Glucose 107(H) 65 - 99 mg/dL 03/19/2024 2:24 PM EST [facility] Creatinine 1.05 0.50 - 1.20 mg/dL 03/19/2024 2:24 PM EST [facility] Calcium 9.2 8.6 - 10.5 mg/dL 03/19/2024 2:24 PM EST [facility] Total Protein 7.4 6.0 - 8.0 g/dL 03/19/2024 2:24 PM EST [facility] Albumin 3.6 3.5 - 5.2 g/dL 03/19/2024 2:24 PM EST [facility] Bilirubin, Total 0.8 0.2 - 1.2 mg/dL 03/19/2024 2:24 PM EST [facility] Alkaline Phosphatase 162(H) 35 - 129 U/L 03/19/2024 2:24 PM EST [facility] AST 35 10 - 40 U/L 03/19/2024 2:24 PM EST [facility] ALT 22 10 - 40 U/L 03/19/2024 2:24 PM EST [facility] BUN 50(H) 7 - 23 mg/dL 03/19/2024 2:24 PM EST [facility] eGFR 58(L) >=60 mL/min/1. 73m2 03/19/2024 2:24 PM EST [facility] Comment:The estimated glomer ular [...] - 4.2 g/dL 03/19/2024 2:24 PM EST [facility] A/G Ratio 0.9(L) 1.5 - 3.0 03/19/2024 2:24 PM EST [facility] Blood Structure of peripheral vein / Unknown Venipuncture / Unknown 03/19/2024 1:10 PM EST 03/19/2024 1:53 PM EST us Joycelyn Becerra MD LAB BLOOD ORDERABLES Final Resul t [facility] [address] [place] [address], * VENOGRAM (02/22/2024 4:00 PM EST) Anatomical Region Laterality Modality X-Ray Angiograph y Narrative 02/22/2024 5:55 PM EST Diagnostic bilateral upper extremity venogram Procedure Details [facility] Heart [...] was present during the entire procedure. Staff: X-Ray Technologist: Fay Sears; RT Ruby(R) HV Measurement Superintendent: Kristopher Laguerre RN Documenter: Sydnie Aguilar RN Anesthesia and Moderate [...] I then upsized to a short 4 Peruvian sheath. I then advanced a glide catheter [...] Type, POCT Venous 024 2:46 PM EST [facility] Sodium, POCT 141 135 - 145 mmol/L 02/22/2024 2:46 PM EST [facility], [facility] Potassium, POCT 4.5 3.5 - 5.3 mmol/L 02/22/2024 2:46 PM EST [facility] Chloride, POCT 107 97 - 110 mmol/L 02/22/2024 2:46 PM EST [facility] TCO2, POCT 23(L) 24 - 32 mmol/L 02/22/2024 2:46 PM EST [facility] Anion Gap, POCT 11 5 - 15 mmol/L 02/22/2024 2:46 PM EST [facility] iCA, POCT 4.8 4.6 - 5.3 mg/dL 02/22/2024 2:46 PM EST [facility] Glucose, POCT 71 70 - 99 mg/dL 02/22/2024 2:46 PM EST [facility] BUN, POCT 27(H) 7 - 23 mg/dL 02/22/2024 2:46 PM EST [facility] Creatinine, POCT 1.0 0.5 - 1.2 mg/dL 02/22/2024 2:46 PM EST [facility] eGFR 61 >=60 mL/min/1. 73m2 02/22/2024 2:46 PM EST [facility] Comment:The estimated glomer ular filtration rate [...] - 42 % 02/22/2024 2:46 PM EST [facility] Blood 02/22/2024 2:42 PM EST 02/22/2024 2:46 PM EST [facility], [facility] - 02/22/2024 2:46 PM EST i-STAT analyzer cannot determine presence of hemolysis in sample us Sis Velazquez MD LAB POCT ORDERABLES - DEVIC E Final Result [facility], [facility] [address] [place] [address], * (ABNORMAL) CBC Auto Differential (02/01/2024 8:57 AM EDT) White Blood Cell Count 4.9 3.8 - 10.8 Thousand/ uL 02/01/2024 11:00 PM EDT [facility] Red Blood Cell Count 3.85 3.80 - 5.10 Million/u L 02/01/2024 11:00 PM EDT [facility] Hemoglobin 10.9(L) 11.7 - 15.5 g/dL 02/01/2024 11:00 PM EDT [facility] Hematocrit 34.0(L) 35.0 - 45.0 % 02/01/2024 11:00 PM EDT [facility] MCV 88.3 80.0 - 100.0 fL 02/01/2024 11:00 PM EDT [facility] MCH 28.3 27.0 - 33.0 pg 02/01/2024 11:00 PM EDT [facility] MCHC 32.1 32.0 - 36.0 g/dL 02/01/2024 11:00 PM EDT [facility] Comment: For adults, a slight decrease in the calculated MCHC value (in the range of 30 to 32 g/dL) is most likely not clinically significant; however, it should be interpreted with caution in correlation with other red cell parameters and the patient's clinical condition. RDW 16.3(H) 11.0 - 15.0 % 02/01/2024 11:00 PM EDT [facility] Platelet Count 131(L) 140 - 400 Thousand/ uL 02/01/2024 11:00 PM EDT [facility] MPV 10.8 7.5 - 12.5 fL 02/01/2024 11:00 PM EDT [facility] Absolute Neutrophils 3,420 1,500 - 7,800 cells/uL 02/01/2024 11:00 PM EDT [facility] Absolute Lymphocytes 637(L) 850 - 3,900 cells/uL 02/01/2024 11:00 PM EDT [facility] Absolute Monocytes 666 200 - 950 cells/uL 02/01/2024 11:00 PM EDT [email or web address] Absolute Eosinophils 147 15 - 500 cells/uL 02/01/2024 11:00 PM EDT [facility] Absolute Basophils 29 0 - 200 cells/uL 02/01/2024 11:00 PM EDT [email or web address] Neutrophils 69.8 % 02/01/2024 11:00 PM EDT [email or web address] [facility] Lymphocytes 13.0 % 02/01/2024 11:00 PM EDT [email or web address] [facility] Monocytes 13.6 % 02/01/2024 11:00 PM EDT [facility] [facility] Eosinophils 3.0 % 02/01/2024 11:00 PM EDT [facility] [facility] [facility] Basophils 0.6 % 02/01/2024 11:00 PM EDT [facility] Blood Structure of peripheral vein / Unknown 02/01/2024 8:57 AM EDT 02/01/2024 8:55 PM EDT Joycelyn Becerra MD LAB BLOOD ORDERABLES Final Resul t [facility] [address] [facility] 3rd Floor, [place] [address], [place] [phone] [facility] [address] [place] [address] * (ABNORMAL) Tacrolimus level (02/01/2024 8:57 AM EDT) Tacrolimus, Highly Sensitive 3.6(L) mcg/L 02/02/2024 9:02 AM EDT [facility] Comment: No definitive therapeutic or toxic ranges have been established. Optimal blood drug levels are influenced by type of transplant, patient response, time post- transplant, co-administration of other drugs, and drug formulation. The following trough range is a suggested guideline: 5.0-20.0 mcg/L. This test was developed and its analytical performance characteristics have been determined by [facility]. It has not been cleared or approved by the FDA. This assay has been validated pursuant to the CLIA regulations and is used for clinical purposes. Blood Structure of peripheral vein / Unknown 02/01/2024 8:57 AM EDT 02/01/2024 8:45 PM EDT us Joycelyn Becerra MD LAB BLOOD ORDERABLES Final Resul t [facility] [address], [place] [address], [place] [phone] [facility] [address] [place] [address] from Last 3 Months Insurance [employer] MEDICARE MEDICARE Member Subscriber Plan / Payer (Ef fective 2017-Present) Name:Praveena Douglass Member ID:[id number] Relation to Subscriber:Self Name:Praveena Douglass Subscriber ID:[id number] Payer ID:[id number] Group ID:Not on file Type:Not on file Address: [place] [id number] [employer] Advance Directives Documents on File Type Date Recorded Patient Scientific Manager Expl anation Health Care Proxy 11/21/2023 2:03 PM 06-19 * Full Code (Latest Code Status on File) Date Activated Date Inactivated Comments 02/22/2024 5:17 PM 02/22/2024 7:43 PM * Full Code Date Activated Date Inactivated Comments 02/22/2024 2:16 PM 02/22/2024 5:17 PM Care Teams Elevated Guard Relationship Specialty Start Date End Date Taylor Zapata [address] [place] [address] PCP - General Internal Medicine 12/01/23
--- OUTSIDE RECORDS SUMMARY | 2024-04-25 12:15 | XMS_ITS | Encounter Summary ---
Author Organization [facility] Address [address] [place] [address] Care Team Providers Care Metal Mold Dresser Name Role Phone [email or web address] Primary Care Provider [phone] Encounter Details Date Type Department Care Team (Late st Contact Info) Description 11/07/2023 Orders Only [facility] XRay [address] [place] [address] Adi Suazo MD [address] [place] [address] Social History Tobacco Use Types Packs/Day Years Used Date Smoking Tobacco: Former Cigarettes Smokeless Tobacco: Never Comments Unknown Sex and Gender Information Value Date Recorded Sex Assigned at Female 12/01/2023 12:25 PM EDT Legal Sex Female 12:06 AM EDT Gender Identity Female 12/19/2023 8:48 AM EDT Sexual Orientation Straight 12/19/2023 8: 48 AM EDT documented as of this encounter Plan of Treatment Upcoming Encounters Date Type Department Care Team (Late st Contact Info) Description 06/18/2024 10:30 AM EDT Follow-Up [facility] Transplant Services [address] [place] [address] Joycelyn Becerra MD [address] [place] [address] 06/18/2024 11:00 AM EDT Nutrition [facility] Renal Transplant [address] [place] [address] [facility] [place] documented as of this encounter Visit Diagnoses Not on filedocumented in this encounter Care Teams Metal Mold Dresser Relationship Specialty Start Date End Date Taylor Zapata [address] [place] [address] PCP - General Internal Medicine 12/01/23 documented as of this encounter
--- OUTSIDE RECORDS SUMMARY | 2024-04-25 12:15 | XMS_ITS ---
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 Name Role Phone Taylor Zapata MD Primary Care Provider HORACIO Dubois Unavailable [phone] Allergies Allergen (clinical drug ingredient) Drug/Non Drug Allergy documented on EMR Reaction Allergy Type Onset Date Status hydromorphone Dilaudid hallucinations Drug Allergy Active Substance with sulfonamide structure and antibacterial mechanism of action (substance) Sulfa Antibiotics Skin Rash Drug Allergy Active REASON FOR VISIT LR MEDICARE PE Medications Medication SIG (Take, Route, Frequency, Duration) Notes Start Date End Date Status Metoprolol Succinate ER 25 MG Orally Not-Taking Dicyclomine HCl 20 MG 1 tablet Orally Three times a day for 30 day(s) Not-Taking Amoxicillin Not-Taki ng Gabapentin 300 MG Orally Ac tive Acetaminophen 325 MG Orally Active Lisinopril 10 MG 1 tablet Orally Active Calcium Active Citalopram Hydrobromide 40 MG 1 tablet Orally Once a day 10mg daily as well Active Vitamin D3 1000 IU ORAL daily for -3 [facility] 04/03/2013 Active Ursodiol 300MG 2 ORAL daily for -3 [facility] 01/23/2011 Active Spironolactone 50 MG 1 tablet Orally Once a day for 30 day(s) Active Budesonide 3 MG 2 capsules Orally Once a day for 30 day(s) Not-Taking Furosemide 20 MG 1 tablet Orally Once a day for 30 day(s) Active Colesevelam HCl 625 MG 3 tablets with meals Orally Twice a day for 30 day(s) Active Tacrolimus 0.5 MG as directed Orally Active Vitamin B 12 Active Vitamin C Active Esomeprazole Sodium 40 MG as directed Intravenous Active Vitamin B6 100 MG 1 tablet Orally Once a day Active Zinc Active Simethicone-80 Activ e hydrOXYzine HCl 10 MG 1 tablet as needed Orally Once a day Active buPROPion HCl Active Ondansetron 4 MG 1 tablet on the tongue and allow to dissolve Orally Once a day Active Social History Tobacco Use: Social History Observation Description Date Details (start date - stop date) Never Smoker NA - NA Tobacco Use/Smoking Question Answer Notes Are you a nonsmoker Alcohol Screen (Audit-C) Question Answer Notes Did you have a drink containing alcohol in the p ast year? No Points 0 Tobacco use other than smoking: Question Answer Notes Are you an other tobacco user? No Problems Problem Type SNOMED Code ICD Code Onset Dates Problem Status W/U Status Risk Notes Problem Personal history of primary malignant neoplasm of female genital organ (124787934) Personal history of malignant neoplasm of other parts of uterus (Z85.42) Active confirmed Vital Signs Temperature 97.7 degrees Fahrenheit 03/11/20 24 Blood pressure systolic 118 mm Hg 03/11/20 24 Blood pressure diastolic 68 mm Hg 024 Height 59 in 03/11/2024 Weight 110 lbs 03/11/2024 BMI 22.21 kg/m2 03/11/2024 Encounters Encounter Location Date Provider Diagnosis [address] [place] [address] 03/11/2024 HORACIO DOW Encounter for gynecological examination (general) (routine) without abnormal findings Z01.419 and Encounter for screening mammogram for malignant neoplasm of breast Z12.31 Assessments Encounter Date Diagnosis (ICD Code) Assessment Notes Treatment Notes Treatment Clinical Notes Section Notes 03/11/2024 Encounter for gynecological examination (general) (routine) without abnormal findings (ICD-10 - Z01.419) During the visit, the following areas of concern were addressed: Discussed sstopping cervical cancer screening as per ASCCP guidelines. Advised continued annual pelvic exams. Patient encouraged to increase her level of exercise. SBE technique encouraged/tau ght. Patient reminded when annual mammogram is due. Patient encouraged to keep colon screening up to date. 03/11/2024 Encounter for screening mammogram for malignant neoplasm of breast (ICD-10 - Z12.31) Plan Of Treatment Treatment Notes Assessment Notes Encounter for gynecological examination (general) (routine) without abnormal findings During the visit, the following areas of concern were addressed: Discussed sstopping cervical cancer screening as per ASCCP guidelines. Advised continued annual pelvic exams. Patient encouraged to increase her level of exercise. SBE technique encouraged/taught. Patient reminded when annual mammogram is due. Patient encouraged to keep colon screening up to date. Pending Test Test Name Order Date MM Digital Screening Mammogram 3D 2023 Next Appt Details Follow Up: 2 Year, Reason: R outine Process Treater Exam Progress Notes * ISRA KELLEYADOB:1955 ( 68 yo F)Acc No.[id number]:03/11/2024 PROGRESS NOTES Patient:?PRAVEENA KELLEY Provider:?HORACIO DOW MD :1955???Age:68 Y???Sex:Female D ate:03/11/2024 Address:[address] [place], [place] [id number] Pcp:Taylor Zapata MD Subjective: * Chief Complaints: * ???LR MEDICARE PE * HPI: ???Constitutional:?Praveena is a 68yo s/p LISETTE/BSO for endometrial cancer 1989 who presents for her yearly book jogger exam. ?She has been in state of fair health since her last exam - She has biliary cirrhosis and underwent liver transplant in 2016, but it failed and she was on a list for a new liver transplant, but was taken off the transplant list because she was diagnosed with a stroke. She had been having dizziness and was falling a lot and had a brain MRI which revealed the stroke.??She undergoes paracentesis q 2 weeks for abdominal ascites. She is now going to [facility] - sees a Dr Becerra. She is being evaluated for a possible transplant. Karen had attempted another transplant, but they found that she had veins that were clotted, so she has transferred to [facility]. She is now on spironolactone, and since then she has not needed paracentses.??She also reports that she was diagnosed with Crohn's disease.?Her daughter got 2 years ago. She has the following concerns: none ?She has received the Moderna Covid-19 vaccine and booster. ?Relationship status: for 48 years. She is still sexually active. Sexual partner(s): male. She does not wish to have STI testing. ?She does report vaginal dryness - using lubricant with good effect. She does not have hot flashes/night sweats. ?The patient has not had an abnormal pap smear within the last 5 years. Her most recent pap smear was 2013 - NIL. Pap smears are no longer indicated. ?She has been diagnosed with breast cancer. She does not have a family history of breast cancer. Her last mammogram was 04/17/23, she had a left breast biopsy in 05/2023 with benign results, and a follow up left mammo in 11/2023. These are ordered by Shay Samuel NP, at [facility]. ?She does not have a family history of colon cancer. She a has had a colonoscopy. The last colonoscopy was 12/2021. ?The patient does not exercise. She uses weights every now and again. * ROS:?Annual Process Treater Exam ROS:?Bowel habit changes?denies.?Bladder symptoms?denies.?Vaginal discharge, unusual?denies.?Vaginal itch or odor?denies.?weight or appetite changes?denies.?Chest pains, SOB?denies.?depression? admits,?denies HI/SI.?Breast:?Denies?Breast lump.?Denies?Nipple discharge.?Hematology:?Denies?Swollen glands.?Skin:?Patient denies?changing moles.?Psychiatric:?Admits?Anxiety,?Sees a mental health clinic (med nurse).?Denies?Suicidal thoughts,?Also denies HI.? * Medical History:? * Process Treater History:?/ Para?2/2.?Sexual activity?currently sexually active.?Last Pap Smear:?09/13 NIL.?Mammogram:?04/17/23 < 50% density, ; left breast bx 05/2023 benign ; left breast lul 11/2023, 04/15/2021 < 50% density, 03/20/19 < 50% density, 03/2018.?Abnormal Pap Smear:?none.?LMP and menses?hyst.?History of STD's:?none.? Control:?none.?Endoscopy *?YES EARLY DECEMBER/2021 @ [facility]..?Colonoscopy?YES EARLY DECEMBER/2021 @ [facility], yes, 12/2018.?Bone Density:?01/2015 T score total forearm (R) -2.5, spine -1.2. FN was not measured.? * OB History:?Total pregnancies?.? # 1:?normal spontaneous vaginal delivery (), 06/24/77, Davi, 6lb, PIH, induced at 36 wks.? # 2:?normal spontaneous vaginal delivery (), 05/21/79, Denice, 8lb, no complications.? * Surgical History:?LISETTE/BSO for bleeding, fallopian tube rupture. no hormones since 1994 Left hip replacement 2010Right hip replacement 2012R lumpectomy, radiation therapy and tamoxifen Liver Transplant 09/2015Hernia Repair 07/2016Colonoscopy Left Eye Cataract 1Right Eye Cataract 1Right Eye Retina Removal 02/15/21SWALLOWED CAPSULE W/ CAMERA 01/25/2022Upper endoscopy 02/2024 * Hospitalization/Major Diagno stic Procedure:?2 Vaginal Deliveries See Surgical Hx FILLING UP WITH FLUID, LIVER 12/2021 * Family History:?Mother: dece ased 67 yrs, high cholesterol. depression. diabetes. hypertension. obesity.?Father: 93 yrs, Alzheimer.?Daughter(s): alive 44 yrs, Afib.?Son(s): alive 46 yrs, lupus dx'd 44.?Spouse: alive 69 yrs, lower back pain, difficulty walking s/p MVA.?Grandson Daniel: alive 5 yrs, High functioning autism.? sister Nehal ( at age 63): of ovarian >dx'ed age 50 NO other cancers Brother - Isra - 02/14/60 - heart disease. * Social History:?Tobacco Use:?Tobacco Use/Smoking?Are you a?nonsmoker ?Tobacco use other than smoking?Are you an other tobacco user??No ???Sexual History:?Details of Sexual History?Are you sexually active??Yes ???Drugs/Alcohol:?Drugs?Have you used drugs other than those for medical reasons in the past 12 months??No ?Alcohol Screen (Audit-C)?Did you have a drink containing alcohol in the past year??No ?Points?0 ???Miscellaneous:?Children: yes. ?Domestic violence: no. ?Exercise: yes. ?Home smoke detector use: smoke detectors, carbon monoxide detector. ?Housing: owns a home. ?Living with: spouse. ?Marital status: , Edward. 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 ?Pets: [facility] (1) [facility], born 2005. ?Sexual abuse: no. ?Sexually active: no. ?Verbal abuse: no. * Medications:?TakinghydrOXYzi ne HCl 10 MG Tablet 1 tablet as needed Orally Once a day Simethicone-80 Ondansetron 4 MG Tablet Disintegrating 1 tablet on the tongue and allow to dissolve Orally Once a day buPROPion HCl Vitamin C Vitamin B 12 Vitamin B6 100 MG Tablet 1 tablet Orally Once a day Esomeprazole Sodium 40 MG Solution Reconstituted as directed Intravenous Zinc Tacrolimus 0.5 MG Capsule as directed Orally Spironolactone 50 MG Tablet 1 tablet Orally Once a day Furosemide 20 MG Tablet 1 tablet Orally Once a day Colesevelam HCl 625 MG Tablet 3 tablets with meals Orally Twice a day Lisinopril 10 MG Tablet 1 tablet Orally Citalopram Hydrobromide 40 MG Tablet 1 tablet Orally Once a day , Notes to Pharmacist: 10mg daily as wellCalcium Ursodiol 300MG 2 ORAL daily , [facility] IU 30 ORAL daily , Notes to Pharmacist: [facility] 325 MG Capsule Orally Gabapentin 300 MG Capsule Orally Taking hydrOXYzine HCl 10 MG Tablet 1 tablet as needed Orally Once a day Taking Simethicone-80 Taking Ondansetron 4 MG Tablet Disintegrating 1 tablet on the tongue and allow to dissolve Orally Once a day Taking buPROPion HCl Taking Vitamin C Taking Vitamin B 12 Taking Vitamin B6 100 MG Tablet 1 tablet Orally Once a day Taking Esomeprazole Sodium 40 MG Solution Reconstituted as directed Intravenous Taking Zinc Taking Tacrolimus 0.5 MG Capsule as directed Orally Taking Spironolactone 50 MG Tablet 1 tablet Orally Once a day Taking Furosemide 20 MG Tablet 1 tablet Orally Once a day Taking Colesevelam HCl 625 MG Tablet 3 tablets with meals Orally Twice a day Taking Lisinopril 10 MG Tablet 1 tablet Orally Taking Citalopram Hydrobromide 40 MG Tablet 1 tablet Orally Once a day , Notes to Pharmacist: 10mg daily as wellTaking Calcium Taking Ursodiol 300MG 2 ORAL daily , [facility] 1000 IU 30 ORAL daily , Notes to Pharmacist: [facility]- Taking Acetaminophen 325 MG Capsule Orally Taking Gabapentin 300 MG Capsule Orally Not-TakingBudesonide 3 MG Capsule Delayed Release Particles 2 capsules Orally Once a day Dicyclomine HCl 20 MG Tablet 1 tablet Orally Three times a day Metoprolol Succinate ER 25 MG Tablet Extended Release 24 Hour Orally Amoxicillin Medication List reviewed and reconciled with the patientNot-Taking Budesonide 3 MG Capsule Delayed Release Particles 2 capsules Orally Once a day Not-Taking Dicyclomine HCl 20 MG Tablet 1 tablet Orally Three times a day Not-Taking Metoprolol Succinate ER 25 MG Tablet Extended Release 24 Hour Orally Not-Taking Amoxicillin Medication List reviewed and reconciled with the patient * Allergies:?Sulfa Antibiotics : Skin Rash - AllergyDilaudid: hallucinationsno[Allergies Verified] Objective: * Vitals:?Ht: 59 in, Wt: 110 l bs, BMI:22.21Index, BP: 118/68 mm Hg, Temp: 97.7 F. * Examination: ???General Examination: ?GENERAL APPEARANCE:?in no acute distress, well developed, well nourished, flap lining binder present in room.?HEAD:?normocephalic, atraumatic.?NECK/THYROID:?neck supple, full range of motion, thyroid normal.?LYMPH NODES:?no axillary or supraclavicular adenopathy.?SKIN:?poor turgor, ecchymoses,?no rashes, no suspicious lesions.?BREASTS:? normal, no dimpling, no discharge, no drainage, no masses palpable bilaterally, nontender.?ABDOMEN:? soft, non-tender, non distended without masses or hepatosplenomegay.?RECTAL:? normal tone, no masses palpable.?BACK:? no costovertebral angle tenderness.?FEMALE GENITOURINARY:?Vulva without lesions or masses, vagina pink without abnormal discharge, lesions or masses, cervix, uterus and ovaries are surgically absent.?NEUROLOGIC:? alert and oriented, gait normal.?PSYCH:? alert, oriented, cognitive function intact, cooperative with exam, good eye contact, mood/affect full range, speech clear.? Assessment: * Assessment: 1.?Encounter for gynecologic al examination (general) (routine) without abnormal findings - Z01.419 (Primary)???2.?Encounter for screening mammogram for malignant neoplasm of breast - Z12.31??? Plan: * Treatment: 2.?Encounter for screening m ammogram for malignant neoplasm of breast?Imaging: MM Digital Screening Mammogram 3D * Procedure Codes:? * Follow Up:?2 Year (Reason: R outine Process Treater Exam) * Images: Billing Information: * Visit Code:? 13935 Preventive Care Est Pt. Age 65 and over. * Procedure Codes:? * Sign off status: Completed true * Provider:?HORACIO DOW MD Date:?2023 Generated for Dionna scott/Marco A/Rachid on:?04/25/2024 12:14 PM EST History and Physical Notes * HPI (History of Present Illness) Category Sub-Category Detail Notes Category Not es Constitutional Praveena is a 68yo s/p LISETTE/BSO for endometrial cancer 1989 who presents for her yearly book jogger exam. She has been in state of fair health since her last exam - She has biliary cirrhosis and underwent liver transplant in 2016, but it failed and she was on a list for a new liver transplant, but was taken off the transplant list because she was diagnosed with a stroke. She had been having dizziness and was falling a lot and had a brain MRI which revealed the stroke. She undergoes paracentesis q 2 weeks for abdominal ascites. She is now going to [facility] - sees a Dr Becerra. She is being evaluated for a possible transplant. Karen had attempted another transplant, but they found that she had veins that were clotted, so she has transferred to [facility]. She is now on spironolactone, and since then she has not needed paracentses. She also reports that she was diagnosed with Crohn's disease. Her daughter got 2 years ago. She has the following concerns: none She has received the Moderna Covid-19 vaccine and booster. Relationship status: for 48 years. She is still sexually active. Sexual partner(s): male. She does not wish to have STI testing. She does report vaginal dryness - using lubricant with good effect. She does not have hot flashes/night sweats. The patient has not had an abnormal pap smear within the last 5 years. Her most recent pap smear was 2013 - NIL. Pap smears are no longer indicated. She has been diagnosed with breast cancer. She does not have a family history of breast cancer. Her last mammogram was 04/17/23, she had a left breast biopsy in 05/2023 with benign results, and a follow up left mammo in 11/2023. These are ordered by Shay Samuel NP, at [facility]. She does not have a family history of colon cancer. She a has had a colonoscopy. The last colonoscopy was 12/2021. The patient does not exercise. She uses weights every now and again. Examination Category Sub-Category Detail Notes Category Not es General Examination GENERAL APPEARANCE: in no ac jovany distress, well developed, well nourished, flap lining binder present in room HEAD: normocephalic, atrau matic NECK/THYROID: neck supple, full ra nge of motion, thyroid normal ABDOMEN: soft, non-tender, no n distended without masses or hepatosplenomegay NEUROLOGIC: alert and oriented, gait normal SKIN: poor turgor, ecchymo ses, no rashes, no suspicious lesions BACK: no costovertebral an gle tenderness BREASTS: normal, no dimpling, no discharge, no drainage, no masses palpable bilaterally, nontender LYMPH NODES: no axillary or supra clavicular adenopathy RECTAL: normal tone, no mass es palpable PSYCH: alert, oriented, cog nitive function intact, cooperative with exam, good eye contact, mood/affect full range, speech clear FEMALE GENITOURINARY: Vulva without lesi ons or masses, vagina pink without abnormal discharge, lesions or masses, cervix, uterus and ovaries are surgically absent
--- OUTSIDE RECORDS SUMMARY | 2024-04-25 12:15 | XMS_ITS | Patient Health Record ---
Author Organization [employer] [facility] Address [address] [address] Care Team Providers Care Hot Repairman Name Role Phone Taylor Zapata MD Primary Care Provider HORACIO Dubois Unavailable [phone] Allergies Allergen (clinical drug ingredient) Drug/Non Drug Allergy documented on EMR Reaction Allergy Type Onset Date Status hydromorphone Dilaudid hallucinations Drug Allergy Active Substance with sulfonamide structure and antibacterial mechanism of action (substance) Sulfa Antibiotics Skin Rash Drug Allergy Active Reason For Referral No Information Medications Medication SIG (Take, Route, Frequency, Duration) Notes Start Date End Date Status Simethicone-80 Activ e Amoxicillin Not-Taki ng hydrOXYzine HCl 10 MG 1 tablet as needed Orally Once a day Active buPROPion HCl Active Lisinopril 10 MG 1 tablet Orally Active Ondansetron 4 MG 1 tablet on the tongue and allow to dissolve Orally Once a day Active Colesevelam HCl 625 MG 3 tablets with meals Orally Twice a day for 30 day(s) Active Vitamin B 12 Active Calcium Active Vitamin C Active Citalopram Hydrobromide 40 MG 1 tablet Orally Once a day 10mg daily as well Active Esomeprazole Sodium 40 MG as directed Intravenous Active Vitamin D3 1000 IU ORAL daily for -3 [facility] 04/03/2013 Active Vitamin B6 100 MG 1 tablet Orally Once a day Active Ursodiol 300MG 2 ORAL daily for -3 [facility] 01/23/2011 Active Tacrolimus 0.5 MG as directed Orally Active Gabapentin 300 MG Orally Ac tive Zinc Active Acetaminophen 325 MG Orally Active Spironolactone 50 MG 1 tablet Orally Once a day for 30 day(s) Active Metoprolol Succinate ER 25 MG Orally Not-Taking Budesonide 3 MG 2 capsules Orally Once a day for 30 day(s) Not-Taking Dicyclomine HCl 20 MG 1 tablet Orally Three times a day for 30 day(s) Not-Taking Furosemide 20 MG 1 tablet Orally Once a day for 30 day(s) Active Immunizations Vaccine Route Administration Date Status Comme nts Influenza, live, intranasal Intramuscular 02/28/2011 Pendi ng Tdap Intramuscular 02/28/2011 Pending Social History Tobacco Use: Social History Observation [...] Are you an other tobacco user? No Section Notes: Marital status: Children: 2 kids Lives with: spouse Occupation: employed part-time Nutrition: good diet Exercise: none Sexual activity: monogamous relationship. Contraception: hysterectomy .CE: Smoking: none .CE: Alcohol: rare alcohol Illicit drugs: no Seatbelt: yes Marital status: Children: 2 kids Lives with: spouse Occupation: employed part-time Nutrition: good diet Exercise: none Sexual activity: monogamous relationship. Contraception: hysterectomy .CE: Smoking: none .CE: Alcohol: rare alcohol Illicit drugs: no Seatbelt: yes Marital status: Children: 2 kids Lives with: spouse Occupation: employed part-time Nutrition: good diet Exercise: none Sexual activity: monogamous relationship. Contraception: hysterectomy .CE: Smoking: none .CE: Alcohol: rare alcohol Illicit drugs: no Seatbelt: yes Marital status: Children: 2 kids Lives with: spouse Occupation: employed part-time Nutrition: good diet Exercise: none Sexual activity: monogamous relationship. Contraception: hysterectomy .CE: Smoking: none .CE: Alcohol: rare alcohol Illicit drugs: no Seatbelt: yes Marital status: Children: 2 kids Lives with: spouse Occupation: employed part-time Nutrition: good diet Exercise: none Sexual activity: monogamous relationship. Contraception: hysterectomy .CE: Smoking: none .CE: Alcohol: rare alcohol Illicit drugs: no Seatbelt: yes Marital status: Children: 2 kids Lives with: spouse Occupation: employed part-time Nutrition: good diet Exercise: none Sexual activity: monogamous relationship. Contraception: hysterectomy .CE: Smoking: none .CE: Alcohol: rare alcohol Illicit drugs: no Seatbelt: yes Granchildren - 08/31/2018 - Scotty yce Granchildren - 08/31/2018 - Scotty yce Granchildren - 08/31/2018 - Scotty yce Granchildren - 08/31/2018 - Scotty yce Problems Problem Type SNOMED Code ICD Code Onset Dates Problem Status W/U Status Risk Notes Problem Malignant neoplasm of female breast (351769389) Malignant neoplasm of breast (female), unspecified site (174.9) Active confirmed Problem Tension-type headache (disorder) (635326992) Tension type headache, unspecified (339.10) Active confirmed Problem Biliary cirrhosis (8324116) Biliary cirrhosis (571.6) Active confirmed Problem Age-related osteoporosis (435340148) Age-related osteoporosis without current pathological fracture (M81.0) Active confirmed Problem Malignant neoplasm of female breast (588512965) Malignant neoplasm of unspecified site of unspecified female breast (C50.919) Active confirmed Problem Irritable bowel syndrome with diarrhea (729375425) Irritable bowel syndrome with diarrhea (K58.0) Active confirmed Problem Primary biliary cirrhosis (48729700) Primary biliary cirrhosis (K74.3) Active confirmed Problem Family history of malignant neoplasm of ovary (413752517) Family history of malignant neoplasm of ovary (Z80.41) Active confirmed Problem Personal history of primary malignant neoplasm of breast (608088680) Personal history of malignant neoplasm of breast (Z85.3) Active confirmed Problem Personal history of primary malignant neoplasm of female genital organ (884837838) Personal history of malignant neoplasm of other parts of uterus (Z85.42) Active confirmed Vital Signs Temperature 97.7 degrees Fahrenheit 03/11/2024 Blood pressure diastolic 68 mm Hg 03/11/2024 Height 59 in 03/11/2024 Blood pressure systolic 118 mm Hg 03/11/2024 Weight 110 lbs 03/11/2024 BMI 22.21 kg/m2 03/11/2024 Encounters Encounter Location Date Provider Diagnosis [address] [place] [address] 03/11/2024 HORACIO DOW Encounter for gynecological examination [...] breast (ICD-10 - Z12.31) Plan Of Treatment Pending Test Test Name Order Date Ultrasound : Pelvic 02/19/2018 DIAGNOSTIC MAMMOGRAM, RIGHT BREAST 03/06 1,25OH VITAMIN D 02/08/2016 1,25OH VITAMIN D 03/02/2015 ALK PHOS 03/02/2015 ALK PHOS ISO 03/02/2015 CALCIUM 03/02/2015 N-TELOPEPTIDE CROSS 03/02/2015 PTH, INTACT 03/02/2015 TSH 03/02/2015 BONE DENSITY 12/30/2014 MM Digital Mammo Screening 12/30/2014 MM Digital Mammo Screening 02/13/2017 MM Digital Mammo Screening 02/19/2018 Right Breast Ultrasound 03/06/2022 MM Digital Screening Mammogram 3D 2023 MM Digital Screening Mammogram 3D 2020 MM Digital Screening Mammogram 3D 2021 Insurance Providers Payer Name Payer Address Payer Phone Subscriber Number Group Number Insured Name Patient Relationship to Insured Coverage Start Date Coverage End Date MEDICARE [address] [place], [place] [id number] JESSICA KELLEY Self - patient is the insured /[address] [place] [address] [id number] JESSICA KELLEY Self - patient is the insured Medical (General) History Medical History History ICD Code Essential (primary) hypertension I10 Primary biliary cirrhosis K74.3 Malignant neoplasm of unspecified site o f unspecified female breast C50.919 Age-related osteoporosis without current pathological fracture M81.0 Personal history of malignant neoplasm o f breast Z85.3 Nausea R11.0 Disorder of bone density and structure, unspecified M85.9 Vulvar cyst N90.7 Irritable bowel syndrome with diarrhea K 58.0 COVID-19 U07.1 Personal history of malignant neoplasm o f other parts of uterus Z85.42 Surgical History Surgery Date(Month/Year) LISETTE/BSO 1989 for bleeding, f allopian tube rupture. no hormones since 1994 Left hip replacement 2010 Right hip replacement 2012 R lumpectomy, radiation therapy and tamo xifen Liver Transplant 09/2015 Hernia Repair 07/2016 Colonoscopy Left Eye Cataract 12/2020 Right Eye Cataract 12/2020 Right Eye Retina Removal 02/15/21 SWALLOWED CAPSULE W/ CAMERA 01/25/2022 Upper endoscopy 02/2024 Hospitalization History Reason Date(Month/Year) FILLING UP WITH FLUID, LIVER 12/2021 See Surgical Hx 2 Vaginal Deliveries
--- OUTSIDE RECORDS SUMMARY | 2024-04-25 12:15 | XMS_ITS | Encounter Summary ---
Author Organization [facility] Address [address] [place] [address] Care Team Providers Care Cook Fry Name Role Phone Taylor Zapata Primary Care Provider [phone] Encounter Details Date Type Department Care Team (Late st Contact Info) Description 01/02/2024 Orders Only [facility] Interventional Radiology [address] [place] [address] Vanessa Comer PA [address] [place] [address] Social History Tobacco Use Types Packs/Day Years [...] Info) Description 06/18/2024 10:30 AM EDT Follow-Up [facility] Liver Transplant Services [address] [place] [address] Joycelyn Becerra MD [address] [place] [address] 06/18/2024 11:00 AM EDT Nutrition [facility] Renal Transplant [address] [place] [address] [facility] R.[place], [place] documented as of this encounter Visit Diagnoses Not on filedocumented in this encounter Care Teams Cook Fry Relationship Specialty Start Date End Date Taylor Zapata [facility] [place] [address] PCP - General Internal Medicine 12/01/23 documented as of this encounter
[2024-04-28 21:03] LABS: Zinc 58 mcg/dL (60-130)
== END 2024-04-25 10:42 | disposition home or self-care (01) ==
LOC: HO.LAB 10:41
PROVIDERS: PCP Internal Medicine; Visit Provider Internal Medicine Gastroenterology
DX: E46 Unspecified protein-calorie malnutrition (principal)
CPT/HCPCS: 36415; 84630

== ENCOUNTER 2024-08-05 06:21 | Day surgery (SDC) | payer MEDICARE, OTHER, SELFPAY ==
[2024-08-01 11:29] VITALS: BMI 21.8
--- OUTSIDE RECORDS SUMMARY | 2024-08-01 14:47 | XMS_ITS | Encounter Summary ---
Author Organization [facility] Address [address] [place] [address] Care Team Providers Care Electric Spot Welder Name Role Phone Taylor Zapata Primary Care Provider [phone] Encounter Details Date Type Department Care Team (Late st Contact Info) Description 11/07/2023 Orders Only [facility] XRay [address] [place] [address] Adi Suazo MD [address] [place] [address] Social History Tobacco Use Types Packs/Day Years [...] Care Team (Late st Contact Info) Description 09/03/2024 9:30 AM EDT Follow-Up [facility] Liver Transplant Services [address] [place] [address] Joycelyn Becerra MD [address] [place] [address] 09/03/2024 10:00 AM EDT Nutrition [facility] Liver Transplant Services [address] [place] [address] Joycelyn Becerra MD [address] [place] [address] [facility] N[facility] R[place], [place] 10/16/2024 8:30 AM EDT Office Visit [facility] Building Neurology [facility] [address] [place] [address] Carin Starkey MD [address] [place] [address] documented as of this encounter Visit Diagnoses Not on filedocumented in this encounter Care Teams Electric Spot Welder Relationship Specialty Start Date End Date Taylor aZpata [address] [place] [address] PCP - General Internal Medicine 12/01/23 documented as of this encounter
--- OUTSIDE RECORDS SUMMARY | 2024-08-01 14:47 | XMS_ITS | Encounter Summary ---
Author Organization [facility] Address [address] [place] [address] Care Team Providers Care Technical Documentation Specialist Name Role Phone Taylor Zapata Primary Care Provider [phone] Encounter Details Date Type Department Care Team (Late st Contact Info) Description 01/02/2024 Orders Only [facility] Interventional Radiology [address] [place] [address] Vanessa Comer PA [address] [place] [address] Social History Tobacco Use Types Packs/Day Years [...] Info) Description 09/03/2024 9:30 AM EDT Follow-Up [facility] Liver Transplant Services [address] [place] [address] Joycelyn Becerra MD [address] [place] [address] 09/03/2024 10:00 AM EDT Nutrition [facility] Liver Transplant Services [address] [place] [address] Joycelyn Becerra MD [address] [place] [address] [facility] NUTRITION R[place], [place] 10/16/2024 8:30 AM EDT Office Visit [facility] Building Neurology Clinic [address] [place] [address] Carin Starkey MD [address] [place] [id number] documented as of this encounter Visit Diagnoses Not on filedocumented in this encounter Care Teams Technical Documentation Specialist Relationship Specialty Start Date End Date Taylor Zapata [address] [place] [address] PCP - General Internal Medicine 12/01/23 documented as of this encounter
--- OUTSIDE RECORDS SUMMARY | 2024-08-01 14:47 | XMS_ITS | Referral Summary ---
Author Organization [facility] Address [address] [place] [address] Care Team Providers Care Sewing Room Supervisor Name Role Phone Taylor Zapata Primary Care Provider Encounters Date Type Department Care Team Description 07/25/2024 Refill [facility] Liver Transplant Services [address] [place] [address] Joycelyn Becerra MD 07/18/2024 Orders Only [facility] Transplant Department [address] [place] [address] Ida Coon RN History of liver transplant (HCC) (Primary Dx); Encounter for immunosuppression management after liver transplant (HCC) 07/03/2024 Orders Only [facility] Transplant Department [address] [place] [address] Joycelyn Becerra MD 07/01/2024 myChart Message [facility] Transplant Services [address] [place] [address] Scan 06/18/2024 Orders Only [facility] ACC Building Mammography [address] [place] [address] 5th [place] [address] Pablito Taveras MD 06/18/2024 11:00 AM EDT Nutrition [facility] Renal Transplant [address] [place] [address] 06/18/2024 10:30 AM EDT Follow-Up [facility] Liver Transplant Services [address] [place] [address] Joycelyn Becerra MD Cirrhosis of liver with ascites, unspecified hepatic cirrhosis type (Primary Dx); Tremor; History of liver transplant; Primary biliary cholangitis from Last 3 Months Allergies Active Allergy Reactions Criticality Noted Date Comments Hydromorphone Hallucinations,Oth er (see comments) Medium 04/23/2015 MS changes -- hallucination Losartan Rash Low 09/28/2023 Sulfa (Sulfonamide Antibiotics) Rash Low 04/23/2015 Medications gabapentin (NEURONTIN) 300 mg capsule Orally Active ondansetron (ZOFRAN ODT) 4 mg disintegrating tablet SMARTSI Tablet(s) By Mouth Every 8 Hours PRN 023 Active colesevelam (WELCHOL) 625 mg tablet 023 Active magnesium gluconate (MAGONATE) 27.5 mg magne- sium (500 mg) tablet Take 500 mg by mouth once a day. Active Galzin 50 mg (zinc) capsule 023 Active esomeprazole (NexIUM) 40 mg capsule ON HOLD. 024 Active cyanocobalamin 1,000 mcg tablet Take 1,000 [...] mg by mouth once a day. Active hydrOXYzine HCL (ATARAX) 10 mg tablet SMARTSI Tablet(s) By Mouth 3 Times Daily PRN 024 Active amoxicillin (AMOXIL) 500 mg capsule Amoxicillin Active buPROPion XL (WELLBUTRIN XL) 150 mg tablet TAKE 1 TABLET BY MOUTH EVERY DAY WITH 300 MG DOSE TO MAKE 450 MG DAILY 024 Active buPROPion XL (WELLBUTRIN XL) 300 mg tablet Active escitalopram (LEXAPRO) 10 mg tablet Take 10 mg by mouth once a day. Active furosemide (LASIX) 40 mg tablet Take 1.5 tablets (60 mg total) by mouth once a day. 45 tablet 2025 Active tacrolimus (PROGRAF) 0.5 mg capsule Take 1 capsule (0.5 mg total) by mouth 2 times a day. 60 capsule 2025 Active ursodioL (ACTIGALL) 500 mg tablet Take 1 tablet (500 mg total) by mouth 2 times a day. 60 tablet 2025 Active spironolactone (ALDACTONE) 50 mg tablet TAKE 2 TABLETS(100 MG) BY MOUTH DAILY 60 tablet Active spironolactone (ALDACTONE) 50 mg tablet Take 2 tablets (100 mg total) by mouth once a day. 60 tablet 2024 Discontinued lactulose 20 gram/30 mL solution Take 15 mL (10 g total) by mouth once a day. Try to target 2-3 bowel movements a day so you can increase this as needed 450 mL 2 2024 Additional Information Patient not taking.Reported on 06/18/2024 Active Problems Problem Noted Date Diagnosed Date [...] Sign Reading Time Taken Comments Blood Pressure 116/74 06/18/2024 10:15 AM EDT Pulse 64 06/18/2024 10:15 AM EDT Temperature 36.7 ??C (98 ??F) 06/18/2024 10:15 AM EDT Respiratory Rate 20 03/19/2024 11:23 AM EST Oxygen Saturation 100% 06/18/2024 10:15 AM EDT Inhaled Oxygen Concentration - - Weight 52.7 kg (116 lb 2.9 oz) 06/18/2024 10:15 AM EDT Height 149.9 cm (4' 11 ) 02/22/2024 2:33 PM EST Body Mass Index 23.47 02/22/2024 2:33 PM EST Plan of Treatment Upcoming Encounters Date Type Department Care Team (Late st Contact Info) Description 09/03/2024 9:30 AM EDT Follow-Up [facility] Liver Transplant Services [address] [place] [address] Joycelyn Becerra MD [address] [place] [address] 09/03/2024 10:00 AM EDT Nutrition [facility] Liver Transplant Services [address] [place] [address] Joycelyn Becerra MD [address] [place] [address] [facility] [place] 10/16/2024 8:30 AM EDT Office Visit [facility] Building Neurology Clinic [address] [place] [address] Carin Starkey MD [address] [place] [address] Procedures * Due to [place] state law, this organization might not be sharing negative HIV tests. Procedure Name Priority Date/Time Associated Diagnosis Comments DIFFERENTIAL,MANUAL- [id number] Routine 06/12/2024 10:01 AM EDT TACROLIMUS LEVEL Routine 06/12/2024 10:0 1 AM EDT History of liver transplant Encounter for immunosuppression management after liver transplant MAGNESIUM Routine 06/12/2024 10:01 AM EDT History of liver transplant COMPREHENSIVE METABOLIC PANEL Routine 06/12/2024 10:01 AM EDT History of liver transplant CBC AUTO DIFFERENTIAL Routine 06/12/2024 10:01 AM EDT History of liver transplant from Last 3 Months Results * Due to [place] state law, this organization might not be sharing negative HIV tests. * (ABNORMAL) Differential, Manual (06/12/2024 10:01 AM EDT) Absolute Neutrophils 2,074 1,500 - 7,800 cells/uL 06/12/2024 10:47 PM EDT [facility] Absolute Band Neutrophils 71 0 - 750 cells/uL 06/12/2024 10:47 PM EDT [facility] Absolute Metamyelocytes 37(H) 0 cells/uL 06/12/2024 10:47 PM EDT [facility] Absolute Lymphocytes 680(L) 850 - 3,900 cells/uL 06/12/2024 10:47 PM EDT [facility] Absolute Monocytes 394 200 - 950 cells/uL 06/12/2024 10:47 PM EDT [facility] Absolute Eosinophils 109 15 - 500 cells/uL 06/12/2024 10:47 PM EDT [facility] Absolute Basophils 34 0 - 200 cells/uL 06/12/2024 10:47 PM EDT [facility] Neutrophils 61.0 % 06/12/2024 10:47 PM EDT [facility] Band Neutrophils 2.1 % 06/13/19 25 10:47 PM EDT [facility] Metamyelocytes 1.1(H) % 06/12/2024 10:47 PM EDT [facility] Lymphocytes 20.0 % 06/12/2024 10:47 PM EDT [facility] Monocytes 11.6 % 06/12/2024 10:47 PM EDT [facility] Eosinophils 3.2 % 06/12/2024 10:47 PM EDT [facility] Basophils 1.0 % 06/12/2024 10:47 PM EDT [facility] Platelet Estimation DECREASED(A ) ADEQUATE 06/12/2024 10:47 PM EDT [facility] Note See Comments 06/12/2024 10:47 PM EDT [facility] Comment: Although an automated CBC was ordered, our instrumentation detected an abnormality on your patient's specimen requiring us to perform a manual review. 06/12/2024 10:0 1 AM EDT 06/12/2024 10:02 AM EDT Narrative [facility] AMBULATORY - 06/13/2024 12:57 AM EDT FASTING:YES ?? CONTACT HISTORY: DATE ?TIME ? CONTACT 06/13/2024 ?12:50 AM ? TEST NAME ?ACTION TAKEN ?DO NOT NOTIFY CLIENT WHEN RESULTS RELEASED us Joycelyn Becerra MD LAB BLOOD ORDERABLES Final Resul t [facility] [address] [facility] 3rd Floor, [place] [address], [facility] [address] [place] [address] * (ABNORMAL) CBC Auto Differential (06/12/2024 10:01 AM EDT) Pathologist [facility] White Blood Cell Count 3.4(L) 3.8 - 10.8 Thousand/ uL 06/12/2024 10:47 PM EDT [facility] Red Blood Cell Count 3.73(L) 3.80 - 5.10 Million/u L 06/12/2024 10:47 PM EDT [facility] Hemoglobin 10.7(L) 11.7 - 15.5 g/dL 06/12/2024 10:47 PM [facility] Hematocrit 33.3(L) 35.0 - 45.0 % 06/12/2024 10:47 PM [employer] MCV 89.3 80.0 - 100.0 fL 06/12/2024 10:47 PM [employer] [facility] MCH 28.7 27.0 - 33.0 pg 06/12/2024 10:47 PM [employer] [facility] MCHC 32.1 32.0 - 36.0 g/dL 06/12/2024 10:47 PM [employer] [facility] Comment: For adults, a slight decrease in the calculated MCHC value (in the range of 30 to 32 g/dL) is most likely not clinically significant; however, it should be interpreted with caution in correlation with other red cell parameters and the patient's clinical condition. RDW 15.8(H) 11.0 - 15.0 % 06/12/2024 10:47 PM [employer] [facility] Platelet Count 83(L) 140 - 400 Thousand/ uL 06/12/2024 10:47 PM [employer] [facility] MPV 11.5 7.5 - 12.5 fL 06/12/2024 10:47 PM [employer] [facility] Blood Structure of peripheral vein / Unknown 06/12/2024 10:01 AM EDT 06/12/2024 8:56 PM EDT [facility] AMBULATORY - 06/13/2024 12:57 AM EDT FASTING:YES ?? CONTACT HISTORY: DATE ?TIME ? CONTACT 06/13/2024 ?12:50 AM ? TEST NAME ?ACTION TAKEN ?DO NOT NOTIFY CLIENT WHEN RESULTS RELEASED us Joycelyn Becerra MD LAB BLOOD ORDERABLES Final Resul t Performing Organization Address [facility] [place]/[facility]/[employer] Co de Phone Number [facility] [address], [place] [address], [facility] [address] [place] [address] * (ABNORMAL) Tacrolimus level (06/12/2024 10:01 AM EDT) Tacrolimus, Highly Sensitive 4.6(L) mcg/L 06/13/2024 12:50 AM EDT [facility] Comment: No definitive therapeutic or toxic ranges have been established. Optimal blood drug levels are influenced by type of transplant, patient response, time post- transplant, co-administration of other drugs, and drug formulation. The following trough range is a suggested guideline: 5.0-20.0 mcg/L. This test was developed and its analytical performance characteristics have been determined by [employer]. It has not been cleared or approved by the FDA. This assay has been validated pursuant to the CLIA regulations and is used for clinical purposes. Blood Structure of peripheral vein / Unknown 06/12/2024 10:01 AM EDT 06/12/2024 8:15 PM EDT Narrative [facility] - 06/13/2024 12:57 AM EDT FASTING:YES ?? CONTACT HISTORY: DATE ?TIME ? CONTACT 06/13/2024 ?12:50 AM ? TEST NAME ?ACTION TAKEN ?DO NOT NOTIFY CLIENT WHEN RESULTS RELEASED Joycelyn Becerra MD LAB BLOOD ORDERABLES Final Resul t Performing Organization Address City/[facility]/ZIP Co de Phone Number [facility] [address], [place] [address], [facility] [address] [place] [address] * Magnesium (06/12/2024 10:01 AM EDT) Pathologist [facility] Magnesium 2.0 1.5 - 2.5 mg/dL 06/12/2024 11:32 PM EDT [facility] Blood Structure of peripheral vein / Unknown 06/12/2024 10:01 AM EDT 06/12/2024 9:50 PM EDT Narrative [facility] - 06/13/2024 12:57 AM EDT FASTING:YES ?? CONTACT HISTORY: DATE ?TIME ? CONTACT 06/13/2024 ?12:50 AM ? TEST NAME ?ACTION TAKEN ?DO NOT NOTIFY CLIENT WHEN RESULTS RELEASED us Joycelyn Becerra MD LAB BLOOD ORDERABLES Final Resul t [facility] [address], [place] [address], [facility] [address] [place] [address] * (ABNORMAL) Comprehensive Metabolic Panel (06/12/2024 10:01 AM EDT) Pathologist [facility] Glucose 91 65 - 99 mg/dL 06/12/2024 11:32 PM EDT [facility] Comment: ? Fasting reference interval BUN 26(H) 7 - 25 mg/dL 06/12/2024 11:32 PM EDT [employer] Creatinine 1.15(H) 0.50 - 1.05 mg/dL 06/12/2024 11:32 PM [employer] [facility] eGFR 52(L) > OR = 60 mL/min/1. 73m2 06/12/2024 11:32 PM [employer] [facility] Bun/Creatinine Ratio 23(H) 6 - 22 (calc) 06/12/2024 11:32 PM [employer] [facility] Sodium 138 135 - 146 mmol/L 06/12/2024 11:32 PM [employer] [facility] Potassium 4.8 3.5 - 5.3 mmol/L 06/12/2024 11:32 PM [employer] [facility] Chloride 110 98 - 110 mmol/L 06/12/2024 11:32 PM [employer] [facility] Carbon Dioxide 24 20 - 32 mmol/L 06/12/2024 11:32 PM [employer] [facility] Calcium 8.4(L) 8.6 - 10.4 mg/dL 06/12/2024 11:32 PM [employer] [facility] Protein, Total 6.7 6.1 - 8.1 g/dL 06/12/2024 11:32 PM [employer] [facility] Albumin 3.5(L) 3.6 - 5.1 g/dL 06/12/2024 11:32 PM [employer] [facility] Globulin 3.2 1.9 - 3.7 g/dL (calc) 06/12/2024 11:32 PM [employer] [facility] Albumin/Globuli n Ratio 1.1 1.0 - 2.5 (calc) 06/12/2024 11:32 PM [employer] [facility] Bilirubin, Total 1.1 0.2 - 1.2 mg/dL 06/12/2024 11:32 PM [employer] [facility] Alkaline Phosphatase 105 37 - 153 U/L 06/12/2024 11:32 PM [employer] [facility] AST 24 10 - 35 U/L 06/12/2024 11:32 PM [employer] [facility] ALT 21 6 - 29 U/L 06/12/2024 11:32 PM [employer] [facility] Blood Structure of peripheral vein / Unknown 06/12/2024 10:01 AM EDT 06/12/2024 9:50 PM EDT N[facility] - 06/13/2024 12:57 AM EDT FASTING:YES ?? CONTACT HISTORY: DATE ?TIME ? CONTACT 06/13/2024 ?12:50 AM ? TEST NAME ?ACTION TAKEN ?DO NOT NOTIFY CLIENT WHEN RESULTS RELEASED us Joycelyn Becerra MD LAB BLOOD ORDERABLES [facility] t [facility] [address] [facility] [address], [place] [address], [facility] [address] [place] [address] from Last 3 Months Insurance [employer] MEDICARE MEDICARE FOR LIFE Advance Directives Documents on File Type Date Recorded Patient Box [facility] Care Proxy 11/21/2023 2:03 PM 06-19 * Full Code (Latest Code Status on File) Date Activated Date Inactivated Comments 02/22/2024 5:17 PM 02/22/2024 7:43 PM * Full Code Date Activated Date Inactivated Comments 02/22/2024 2:16 PM 02/22/2024 5:17 PM Care Teams Sewing Room Supervisor Relationship Specialty Start Date End Date Taylor Zapata 1962 [place] [address] PCP - General Internal Medicine 12/01/23
--- OUTSIDE RECORDS SUMMARY | 2024-08-01 14:47 | XMS_ITS | Encounter Summary ---
Author Organization [facility] Address [address] [place] [address] Care Team Providers Care Associate Director Of Nursing Name Role Phone Taylor Zapata Primary Care Provider [phone] Reason for Visit * Reason Comments Med Refill Encounter Details Date Type Department Care Team (Late st Contact Info) Description 07/25/2024 Refill [facility] Liver Transplant Services [address] [place] [address] Joycelyn Becerra MD [address] [place] [address] Social History Tobacco Use Types Packs/Day Years [...] Info) Description 09/03/2024 9:30 AM EDT Follow-Up [facility] Liver Transplant Services [address] [place] [address] Joycelyn Becerra MD [address] [place] [address] 09/03/2024 10:00 AM EDT Nutrition [facility] Liver Transplant Services [address] [place] [address] Joycelyn Becerra MD [address] [place] [address] [facility] NUTRITION [place], [place] 10/16/2024 8:30 AM EDT Office Visit [facility] Building Neurology Clinic [address] [place] [address] Carin Starkey MD [address] [place] [address] documented as of this encounter Visit Diagnoses Not on filedocumented in this encounter Care Teams Associate Director Of Nursing Relationship Specialty Start Date End Date Taylor Zapata [address] [place] [address] PCP - General Internal Medicine 12/01/23 documented as of this encounter
--- OUTSIDE RECORDS SUMMARY | 2024-08-01 14:47 | XMS_ITS | Continuity of Care Document ---
Author Name [facility] Organization [facility] Care Team Providers Care Supervisor Respiratory Name Role Phone [facility] Unavailable Unavailable Medications Combined list of outpatient [...] [facility], 1 ea. BOX Cancele d [id number] : 2023 0 Pharmac y Data Transac tion Service Facilit y NICHELLE AEROSOL CLOUD ENHANCER (inhaler, assist devices), SPACER, MISCELL, [facility], 1 ea. BOX Cancele d [id number] : 2023 0 Pharmac y Data Transac tion Service Facilit y NICHELLE AEROSOL CLOUD ENHANCER (inhaler, assist devices), SPACER, MISCELL, [facility], 1 ea. BOX Active [id number] 2023 1 Pharmac y Data Transac tion Service Facilit y ALBUTEROL SULFATE HFA (albuterol sulfate), 90 MCG, HFA AER AD, INHALATION, CIPLA [employer] 6.7 g CANISTER Cancele d [id number] : 2023 0 Pharmac y Data Transac tion Service Facilit y ALBUTEROL SULFATE HFA (albuterol sulfate), 90 MCG, HFA AER AD, INHALATION, CIPLA [employer] 6.7 g CANISTER Active [id number] 4 2023 6.7 Pharmac y Data Transac tion Service Facilit y AMOXICILLIN (AMOXICILLI N), 500 MG, CAPSULE, ORAL, AUROBINDO PHARM, 500 ea. BOTTLE Cancele d [id number] : 2023 0 Pharmac y Data Transac tion Service Facilit y BUPROPION XL (bupropion HCl), 300 MG, TAB ER 24H, ORAL, LUPIN PHARMACEU, 500 ea. BOTTLE Cancele d [id number] : 2023 0 Pharmac y Data Transac tion Service Facilit y BUPROPION XL (bupropion HCl), 300 MG, TAB ER 24H, ORAL, LUPIN PHARMACEU, 500 ea. BOTTLE Active [id number] 2023 90 Pharmac y Data Transac tion Service Facilit y COLESEVELAM HCL (colesevela m HCl), 625 MG, TABLET, ORAL, JAEL PHARMAC, 180 ea. BOTTLE Cancele d [id number] : 2023 0 Pharmac y Data Transac tion Service Facilit y ESOMEPRAZOL E MAGNESIUM (esomeprazo le magnesium), 40 MG, CAPSULE DR, ORAL, AUROBINDO PHARM, 90 ea. BOTTLE Cancele d [id number] : 2023 0 Pharmac y Data Transac tion Service Facilit y ESOMEPRAZOL E MAGNESIUM (esomeprazo le magnesium), 40 MG, CAPSULE DR, ORAL, AUROBINDO PHARM, 90 ea. BOTTLE Active [id number] 2023 90 Pharmac y Data Transac tion Service Facilit y ESOMEPRAZOL E MAGNESIUM (esomeprazo le magnesium), 40 MG, CAPSULE DR, ORAL, AUROBINDO PHARM, 90 ea. BOTTLE Active [id number] 2023 90 Pharmac y Data Transac tion Service Facilit y FLUTICASONE PROPIONATE (FLUTICASON E PROPIONATE) , 50MCG, SPRAY SUSP, NASAL, APOTEX LINDSEY, 16 g AER W/ADAP Cancele d [id number] : 2023 0 Pharmac y Data Transac tion Service Facilit y GABAPENTIN (gabapentin ), 300 MG, CAPSULE, ORAL, XLCARE PHARMACE, 270 ea. BOTTLE Active [id number] 2023 180 Pharmac y Data Transac tion Service Facilit y GALZIN (ZINC ACETATE), 50MG, CAPSULE, ORAL, GATE PHARM, 250 ea. BOTTLE Cancele d [id number] : 2023 0 Pharmac y Data Transac tion Service Facilit y GALZIN (ZINC ACETATE), 50MG, CAPSULE, ORAL, GATE PHARM, 250 ea. BOTTLE Cancele d [id number] : 2023 0 Pharmac y Data Transac tion Service Facilit y GALZIN (ZINC ACETATE), 50MG, CAPSULE, ORAL, GATE PHARM, 250 ea. BOTTLE Cancele d [id number] : 2023 0 Pharmac y Data Transac tion Service Facilit y GALZIN (ZINC ACETATE), 50MG, CAPSULE, ORAL, GATE PHARM, 250 ea. BOTTLE Cancele d [id number] : 2023 0 Pharmac y Data Transac tion Service Facilit y GALZIN (ZINC ACETATE), 50MG, CAPSULE, ORAL, GATE PHARM, 250 ea. BOTTLE Cancele d [id number] : 2023 0 Pharmac y Data Transac tion Service Facilit y ONDANSETRON ODT (ONDANSETRO N), 4 MG, TAB RAPDIS, ORAL, CITRON PHARMA L, 30 ea. BLIST PACK Cancele d [id number] : 2023 0 Pharmac y Data Transac tion Service Facilit y TACROLIMUS (tacrolimus ), 0.5 MG, CAPSULE, ORAL, [employer] 100 ea. BOTTLE Active [id number] 2023 180 Pharmac y Data Transac tion Service Facilit y URSODIOL (URSODIOL), 500 MG, TABLET, ORAL, PAR PHARM., 100 ea. BOTTLE Cancele d [id number] : 2023 0 Pharmac y Data Transac tion Service Facilit y URSODIOL (URSODIOL), 500 MG, TABLET, ORAL, PAR PHARM., 100 ea. BOTTLE Cancele d [id number] : 2023 0 Pharmac y Data Transac tion Service Facilit y URSODIOL (ursodiol), 500 MG, TABLET, ORAL, ZYDUS PHARMACEU, 100 ea. BOTTLE Active [id number] 2023 180 Pharmac y Data Transac tion Service Facilit y Immunizations Combined list of available immunizations from the Department of Defense and Veterans Affairs facilities. Immunization Series Date Given Administered By Site Reaction Lot Number CVX Code Drug Airline Operations Agent Status Comments Source COVID-19, mRNA, LNP-S, PF, 100 mcg or 50 mcg dose 2021 [employer]. (MOD) Not Given COVID-19, mRNA, LNP-S, PF, 100 mcg or 50 mcg dose [facility] Influenza vaccine, quadrivalent, adjuvanted 2020 [employer], () Not Given Influenza vaccine, quadrival ent, adjuvante d [facility] Social History Combined list of available smoking, tobacco, and other social history from Department of Defense and Veterans Affairs facilities. Social History Type Response Date Comment Sour e This section is an empty social history section. DoD
--- OUTSIDE RECORDS SUMMARY | 2024-08-01 14:47 | XMS_ITS | Encounter Summary ---
Author Organization [facility] Address [address] [place] [address] Care Team Providers Care Airflight Attendants Supervisor Name Role Phone Taylor Zapata Primary Care Provider [phone] Encounter Details Date Type Department Care Team (Late st Contact Info) Description 06/18/2024 Orders Only [facility] ACC Building Mammography [address] [facility], 5th [place] [address] Pablito Taveras MD [address] [place] [address] Social History Tobacco Use Types Packs/Day Years [...] Info) Description 09/03/2024 9:30 AM EDT Follow-Up [facility] Liver Transplant Services [address] [place] [address] Joycelyn Becerra MD [address] [place] [address] 09/03/2024 10:00 AM EDT Nutrition [facility] Liver Transplant Services [address] [place] [address] Joycelyn Becerra MD [address] [place] [address] [facility] NUTRITION [place], [place] 10/16/2024 8:30 AM EDT Office Visit [facility] Building Neurology Clinic [address] [place] [address] Carin Starkey MD [address] [place] [address] documented as of this encounter Visit Diagnoses Not on filedocumented in this encounter Care Teams Airflight Attendants Supervisor Relationship Specialty Start Date End Date Taylor Zapata 1962 [place] [address] PCP - General Internal Medicine 12/01/23 documented as of this encounter
--- OUTSIDE RECORDS SUMMARY | 2024-08-01 14:47 | XMS_ITS ---
Author Organization [facility] Address [address] [place] [address] Care Team Providers Care Plant Attendant Or Assistant Operator Name Role Phone Taylor Zapata Primary Care Provider [phone] Transplant Episode Liver Recipient [facility] ([place], [place]) - [facility] Transplanted on 09/30/2015 Marked as Active Follow-up on 09/30/2015 Liver CoordinatorIda Coon RN Phone: N/A Fax: N/A Email: N/A Transplanted Elsewhere: [facility] ([place], [place]) - [facility] Coordinator: Phone: Fax: [place] Organ Diagnosis Organ Primary Contributory Liver Primary Biliary Cirrhosis (PBC) Care Team Name Role Phone Fax Email Ida Coon RN Liver Coordinator N/A N/A N/A Events Post-Transplant Pre-Transplant Transplanted: 09/30/2015
--- OUTSIDE RECORDS SUMMARY | 2024-08-01 14:47 | XMS_ITS | Encounter Summary ---
Author Organization [facility] Address [address] [place] [address] Care Team Providers Care Wardrobe Attendant Name Role Phone Taylor Zapata Primary Care Provider [phone] Encounter Details Date Type Department Care Team (Late st Contact Info) Description 07/01/2024 myChart Message [facility] Liver Transplant Services [address] [place] [address] Joycelyn Becerra MD [address] [place] [address] CT Scan Social History Tobacco Use Types Packs/Day Years [...] Description 09/03/2024 9:30 AM EDT Follow-Up [facility]plant [facility] [address] [place] [address] Joycelyn Becerra MD [address] [place] [address] 09/03/2024 10:00 AM EDT Nutrition [facility] Transplant [facility] [address] [place] [address] Joycelyn Becerra MD [address] [place] [address] [facility] NUTRITION [place], [place] 10/16/2024 8:30 AM EDT Office Visit [facility] Building Neurology Clinic [address] [place] [address] Carin Starkey MD [address] [place] [phone] documented as of this encounter Visit Diagnoses Not on filedocumented in this encounter Care Teams Wardrobe Attendant Relationship Specialty Start Date End Date Taylor Zapata [address] [place] [address] PCP - General Internal Medicine 12/01/23 documented as of this encounter
--- OUTSIDE RECORDS SUMMARY | 2024-08-01 14:47 | XMS_ITS | Clinical Summary ---
Author Organization [facility] Address [address] [place] [address] Care Team Providers Care Cardiovascular Surgical Tech Name Role Phone JodiTaylor Primary Care Provider [phone] Allergies Active Allergy Reactions Criticality Noted Date [...] Tablet(s) By Mouth 3 Times Daily PRN Active amoxicillin (AMOXIL) 500 mg capsule Amoxicillin Active buPROPion XL (WELLBUTRIN XL) 150 mg tablet TAKE 1 TABLET BY MOUTH EVERY DAY WITH 300 MG DOSE TO MAKE 450 MG DAILY Active buPROPion XL (WELLBUTRIN XL) 300 mg [...] by mouth once a day. 60 tablet 024 2024 Discontinued lactulose 20 gram/30 mL solution [...] Type Department Care Team Description 07/25/2024 Refill [facility] Liver Transplant Services [address] [place] [address] Joycelyn Becerra MD 07/18/2024 Orders Only [facility] Transplant Department [address] [place] [address] Ida Coon RN History of liver transplant (HCC) (Primary Dx); Encounter for immunosuppression management after liver transplant (HCC) 07/03/2024 Orders Only [facility] Transplant Department [address] [place] [address] Joycelyn Becerra MD 07/01/2024 myChart Message [facility] Liver Transplant Services [address] [place] [address] [address] Scan 06/18/2024 11:00 AM EDT Nutrition [facility] Renal Transplant [address] [place] [address] 06/18/2024 10:30 AM EDT Follow-Up [facility] Liver Transplant Services [address] [place] [address] Joycelyn Becerra MD Cirrhosis of liver with ascites, unspecified hepatic cirrhosis type (Primary Dx); Tremor; History of liver transplant; Primary biliary cholangitis 06/18/2024 Orders Only [facility] ACC Building Mammography [address] [place] [address], 5th floor [facility] [place] [address] Pablito Taveras MD from Last 3 Months Social History Tobacco [...] Info) Description 09/03/2024 9:30 AM EDT Follow-Up [facility] Liver Transplant Services [address] [place] [address] Joycelyn Becerra MD [address] [place] [address] 09/03/2024 10:00 AM EDT Nutrition [facility] Liver Transplant Services [address] [place] [address] Joycelyn Becerra MD [address] [place] [address] [facility] [place] 10/16/2024 8:30 AM EDT Office Visit [facility] Building Neurology Clinic [address] [place] [address] Carin Starkey MD [address] [place] [address] Health Maintenance Due Date Last Done Comments Cologuard 1954 Colon Cancer Screening 1954 Colonoscopy 1954 FOBT / Fit Test 1954 Sigmoidoscopy 1954 Medicare AWV 09/15/1955 Osteoporosis Screening 2004 Hepatitis B Vaccines (1 of 3 - Risk 3-dose series) 2014 DTaP,Tdap,and Td Vaccines (2 - Td or Tdap) 06/01/2021 06/02/2011 Depression Screening and Follow-Up 04/02/2024 Health Care Proxy Review 04/02/2024 Social Drivers of Health Sarah ual Screening 04/02/2024 COVID-19 Vaccine (8 - Modern a risk season) 2024 12/21/2023, 12/29/2022, 03/16/2022, Additional history exists CT Lung Cancer Screening (Baseline) 08/30/2024 08/31/2023, 08/31/2023 Basic Metabolic Panel 06/12/2025 06/12/2024 , 03/19/2024, 02/20/2024, Additional history exists Fall Risk Screening 06/18/2025 06/18/2024 Tobacco Screening 04/02/2042 06/18/2024 Pneumococcal Vaccine: 50+ Years Completed , 03/12/2015 RSV Vaccine (60+ years old a nd patients) Completed 12/29/2022 Zoster Vaccines Completed 12/29/2022, 07, 06/03/2015 Hepatitis C Screening Completed 08/18/2023, 024 Influenza Vaccine Completed 12/21/2023, , 01/12/2022, Additional history exists Alcohol/Substance Use Screening Completed 5 Procedures * Due to [place] state law, this organization might not be sharing negative HIV tests. Procedure Name Priority Date/Time Associated Diagnosis Comments DIFFERENTIAL,MANUAL- [id number] Routine 06/12/2024 10:01 AM EDT TACROLIMUS LEVEL [...] Last 3 Months Results * Due to [place] state law, this organization might not be sharing negative HIV tests. * (ABNORMAL) Differential, Manual (06/12/2024 10:01 AM EDT) Absolute Neutrophils 2,074 1,500 - 7,800 cells/uL 06/12/2024 10:47 PM EDT [facility] Absolute Band Neutrophils 71 0 - 750 cells/uL 06/12/2024 10:47 PM EDT [facility] Absolute Metamyelocytes 37(H) 0 cells/uL 06/12/2024 10:47 PM EDT [facility] Absolute Lymphocytes 680(L) 850 - 3,900 cells/uL 06/12/2024 10:47 PM EDT [facility] Absolute Monocytes 394 200 - 950 cells/uL 06/12/2024 10:47 PM EDT [facility] Absolute Eosinophils 109 15 - 500 cells/uL 06/12/2024 10:47 PM EDT [facility] Absolute Basophils 34 0 - 200 cells/uL 06/12/2024 10:47 PM EDT [facility] Neutrophils 61.0 % 06/12/2024 10:47 PM EDT [facility] Band Neutrophils 2.1 % 06/13/19 10:47 PM EDT [facility] Metamyelocytes 1.1(H) % 06/12/2024 10:47 PM EDT [facility] Lymphocytes 20.0 % 06/12/2024 10:47 PM EDT [facility] Monocytes 11.6 % 06/12/2024 10:47 PM EDT [facility] Eosinophils 3.2 % 06/12/2024 10:47 PM EDT [facility] Basophils 1.0 % 06/12/2024 10:47 PM EDT [facility] Platelet Estimation DECREASED(A ) ADEQUATE 06/12/2024 10:47 PM EDT [facility] Note See Comments 06/12/2024 10:47 PM EDT [facility] Comment: Although an automated CBC was ordered, our instrumentation detected an abnormality on your patient's specimen requiring us to perform a manual review. 06/12/2024 10:0 1 AM EDT 06/12/2024 10:02 AM EDT Narrative [facility] - 06/13/2024 12:57 AM EDT FASTING:YES ?? CONTACT HISTORY: DATE ?TIME ? CONTACT 06/13/2024 ?12:50 AM ? TEST NAME ?ACTION TAKEN ?DO NOT NOTIFY CLIENT WHEN RESULTS RELEASED us Joycelyn Becerra MD LAB BLOOD ORDERABLES Final Resul t [facility] [address] [facility] [address], [place] [address], [facility] [address] [place] [address] * (ABNORMAL) CBC Auto Differential (06/12/2024 10:01 AM EDT) White Blood Cell Count 3.4(L) 3.8 - 10.8 Thousand/ uL 06/12/2024 10:47 PM EDT [facility] Red Blood Cell Count 3.73(L) 3.80 - 5.10 Million/u L 06/12/2024 10:47 PM EDT [facility] Hemoglobin 10.7(L) 11.7 - 15.5 g/dL 06/12/2024 10:47 PM EDT [facility] Hematocrit 33.3(L) 35.0 - 45.0 % 06/12/2024 10:47 PM EDT [facility] MCV 89.3 80.0 - 100.0 fL 06/12/2024 10:47 PM EDT [facility] MCH 28.7 27.0 - 33.0 pg 06/12/2024 10:47 PM EDT [facility] MCHC 32.1 32.0 - 36.0 g/dL 06/12/2024 10:47 PM EDT [facility] Comment: For adults, a slight decrease in the calculated MCHC value (in the range of 30 to 32 g/dL) is most likely not clinically significant; however, it should be interpreted with caution in correlation with other red cell parameters and the patient's clinical condition. RDW 15.8(H) 11.0 - 15.0 % 06/12/2024 10:47 PM EDT [facility] Platelet Count 83(L) 140 - 400 Thousand/ uL 06/12/2024 10:47 PM EDT [facility] MPV 11.5 7.5 - 12.5 fL 06/12/2024 10:47 PM EDT [facility] Blood Structure of peripheral vein / Unknown 06/12/2024 10:01 AM EDT 06/12/2024 8:56 PM EDT Narrative [facility] - 06/13/2024 12:57 AM EDT FASTING:YES ?? CONTACT HISTORY: DATE ?TIME ? CONTACT 06/13/2024 ?12:50 AM ? TEST NAME ?ACTION TAKEN ?DO NOT NOTIFY CLIENT WHEN RESULTS RELEASED us Joycelyn Becerra MD LAB BLOOD ORDERABLES Final Resul t [facility] [address] [facility] [address], [place] [address], [place] [phone] [facility] [address] [place] [address] * (ABNORMAL) Tacrolimus level (06/12/2024 10:01 AM EDT) [facility] Tacrolimus, Highly Sensitive 4.6(L) mcg/L 06/13/2024 12:50 AM EDT [facility] Comment: No definitive therapeutic or toxic ranges have been established. Optimal blood drug levels are influenced by type of transplant, patient response, time post- transplant, co-administration of other drugs, and drug formulation. The following trough range is a suggested guideline: 5.0-20.0 mcg/L. This test was developed and its analytical performance characteristics have been determined by [employer]. It has not been cleared or approved [...] ORDERABLES Final Resul t [facility] [address] [facility] [address], [place] [address], [place] [phone] [facility] [address] [place] [address] * Magnesium (06/12/2024 10:01 AM EDT) [facility] Magnesium 2.0 1.5 - 2.5 mg/dL 06/12/2024 11:32 PM EDT [facility] Blood Structure of peripheral vein / Unknown 06/12/2024 10:01 AM EDT 06/12/2024 9:50 PM EDT Narrative [facility] - 06/13/2024 12:57 AM EDT FASTING:YES ?? CONTACT HISTORY: DATE ?TIME ? CONTACT 06/13/2024 ?12:50 AM ? TEST NAME ?ACTION TAKEN ?DO NOT NOTIFY CLIENT WHEN RESULTS RELEASED us Joycelyn Becerra MD LAB BLOOD ORDERABLES Final Resul t [facility] [address] [facility] [address], [place] [address], [facility] [address] [place] [address] * (ABNORMAL) Comprehensive Metabolic Panel (06/12/2024 10:01 AM EDT) Glucose 91 65 - 99 mg/dL 06/12/2024 11:32 PM EDT [facility] Comment: ? Fasting reference interval BUN 26(H) 7 - 25 mg/dL 06/12/2024 11:32 PM EDT [facility] Creatinine 1.15(H) 0.50 - 1.05 mg/dL 06/12/2024 11:32 PM EDT [facility] eGFR 52(L) > OR = 60 mL/min/1. 73m2 06/12/2024 11:32 PM EDT [facility] Bun/Creatinine Ratio 23(H) 6 - 22 (calc) 06/12/2024 11:32 PM EDT [facility] Sodium 138 135 - 146 mmol/L 06/12/2024 11:32 PM [facility] Potassium 4.8 3.5 - 5.3 mmol/L 06/12/2024 11:32 PM [facility] Chloride 110 98 - 110 mmol/L 06/12/2024 11:32 PM [facility] Carbon Dioxide 24 20 - 32 mmol/L 06/12/2024 11:32 PM [facility] Calcium 8.4(L) 8.6 - 10.4 mg/dL 06/12/2024 11:32 PM [facility] Protein, Total 6.7 6.1 - 8.1 g/dL 06/12/2024 11:32 PM [facility] Albumin 3.5(L) 3.6 - 5.1 g/dL 06/12/2024 11:32 PM [facility] Globulin 3.2 1.9 - 3.7 g/dL (calc) 06/12/2024 11:32 PM [facility] Albumin/Globuli n Ratio 1.1 1.0 - 2.5 (calc) 06/12/2024 11:32 PM [facility] Bilirubin, Total 1.1 0.2 - 1.2 mg/dL 06/12/2024 11:32 PM [facility] Alkaline Phosphatase 105 37 - 153 U/L 06/12/2024 11:32 PM [facility] AST 24 10 - 35 U/L 06/12/2024 11:32 PM [facility] ALT 21 6 - 29 U/L 06/12/2024 11:32 PM [facility] Blood Structure of peripheral vein / Unknown 06/12/2024 10:01 AM EDT 06/12/2024 9:50 PM EDT Narrative [facility] - 06/13/2024 12:57 AM EDT FASTING:YES ?? CONTACT HISTORY: DATE ?TIME ? CONTACT 06/13/2024 ?12:50 AM ? TEST NAME ?ACTION TAKEN ?DO NOT NOTIFY CLIENT WHEN RESULTS RELEASED us Joycelyn Becerra MD LAB BLOOD ORDERABLES Final Resul t [facility] [address] [facility] [address], [place] [address], [place] [phone] [facility] [address] [place] [address] from Last 3 Months Insurance [employer] MEDICARE MEDICARE FOR LIFE Advance Directives Documents on File Type Date Recorded Patient Director Of Clinical Services Expl [facility] Health Care Proxy 11/21/2023 2:03 PM 06-19 * Full Code (Latest Code Status on File) Date Activated Date Inactivated Comments 02/22/2024 5:17 PM 02/22/2024 7:43 PM * Full Code Date Activated Date Inactivated Comments 02/22/2024 2:16 PM 02/22/2024 5:17 PM Care Teams Cardiovascular Surgical Tech Relationship Specialty Start Date End Date Taylor Zapata 1962 [place] [address] PCP - General Internal Medicine 12/01/23
--- NOTE | 2024-08-04 12:37 | P.CONAN_ITS ---
Documented by User: Shyann Griffin NP 08/04/24 12:40 HPI - Anesthesia Eval Consult details Narrative: 68yo F for Upper Endoscopy s/p same 02/2024 with MAC Cirrhosis s/p liver tx 2015. Now recurring with ascites and thrombocytopenia. Aborted second transplant d/t DVT's. Following with [facility] heme Last paracentesis on record here, 11/2023 PMF[facility] Active Problems Active Problems: All Active Problems Grieving (Acute) Osteoporosis (Acute) Hearing loss (Acute) Encephalomalacia on imaging study (Acute) Abdominal ascites (Acute) Postmenopausal (Acute) Vitamin B6 deficiency (Acute) Annual physical exam (Acute) Malnutrition (Acute) Thrombocytopenia (Chronic) Diarrhea (Acute) Ascites (Acute) Neck pain (Acute) Anxiety (Acute) Primary biliary cholangitis (Acute) Past Medical History Medical History (Updated 08/01/24 @ 11:28 by Geri Humphrey RN) Stroke Frequent falls Ascites Anemia CHF (congestive heart failure) Pancytopenia Anxiety HTN (hypertension) Tremor Chronic diarrhea Primary biliary cholangitis Breast cancer Family History Family History Mother CAD (coronary artery disease) Sister Ovarian cancer Mental health disorder Family history of problems with anesthesia: No Surgical History Surgical History (Updated 08/01/24 @ 11:29 by Geri Humphrey RN) History of abdominal paracentesis Hx of sigmoidoscopy H/O wrist surgery Transplant recipient Hx of colonoscopy Hx of esophagogastroduodenoscopy H/O: hysterectomy S/P hip replacement Liver transplant recipient History of Problems with Anesthesia: No Social History Social History Household Members: Spouse Household Members Other:: , children Housing: House Are you a primary care coordination manager to a significant other at home: No Do you presently have visiting nurse or other home services: No Alcohol intake: former Patient Tobacco Use Status: Former Tobacco user Tobacco use type: Cigarette e-Cigarette/Vaping Use: Never Used Second Hand Smoke Exposure: No Have you been hit, kicked, punched, or otherwise hurt by someone within the past year? If so, by whom?: No Are you DNR?: No Advance Directives: No Advance Directives Information Provided: Yes Advance Directives Date on File: 12/15/22 service: No Current occupational status: retired Cognitive needs: No Hearing needs: No Vision needs: Yes Meds Allergies Allergy/AdvReac Type Severity Reaction Status Date / Time hydromorphone [From Dilaudid] Allergy Severe Hallucinati Verified 03/27/24 12:37 ons losartan Allergy Intermediate Facial Verified 03/27/24 12:37 Swelling Sulfa (Sulfonamide AdvReac Severe Rash Verified 03/27/24 12:37 Antibiotics) Home Medications ?Medication ?Instructions ?Recorded ?Confirmed ?Last Taken ?Type cholecalciferol (vitamin D3) 25 25 mcg PO DAILY 04/25/22 08/01/24 09/11/23 History mcg (1,000 unit) capsule (Vitamin D3) tacrolimus 0.5 mg capsule, 0.5 mg PO Q12H 08/22/22 08/01/24 09/11/23 History immediate-release spironolactone 50 mg tablet 50 mg PO BID 12/06/23 08/01/24 Unknown History bupropion HCl 300 mg 24 hr tablet, 450 mg PO DAILY 12/18/23 08/01/24 Unknown History extended release hydroxyzine HCl 10 mg tablet 10 mg PO TID 12/18/23 08/01/24 Unknown History Exam Height,Weight and Vital Signs: Height 4 ft 11 in Weight 48.988 kg Pertinent Lab Results Pertinent Lab Results: Laboratory Tests 03/27/24 13:27 Sodium 137 Potassium 4.8 Chloride 111 H Carbon Dioxide 23 BUN 34 H Creatinine 1.03 Assessment and Plan Assessment Anesthesia Assessment: Chart Reviewed Final Anesthetic Review Family History of Problems with Anesthesia: No History of Problems with Anesthesia: No Documented by User: Ryder Lux MD 08/05/24 07:43 [facility] Past Medical History Medical History (Updated 08/01/24 @ 11:28 by Geri Humphrey RN) Stroke Frequent falls Ascites Anemia CHF (congestive heart failure) Pancytopenia Anxiety HTN (hypertension) Tremor Chronic diarrhea Primary biliary cholangitis Breast cancer Family History Family History Mother CAD (coronary artery disease) Sister Ovarian cancer Mental health disorder Surgical History Surgical History (Updated 08/01/24 @ 11:29 by Geri Humphrey RN) History of abdominal paracentesis Hx of sigmoidoscopy H/O wrist surgery Transplant recipient Hx of colonoscopy Hx of esophagogastroduodenoscopy H/O: hysterectomy S/P hip replacement Liver transplant recipient Social History Social History Household Members: Spouse Household Members Other:: , children Housing: House Are you a primary care coordination manager to a significant other at home: No Do you presently have visiting nurse or other home services: No Alcohol intake: former Patient Tobacco Use Status: Former Tobacco user Tobacco use type: Cigarette e-Cigarette/Vaping Use: Never Used Second Hand Smoke Exposure: No Have you been hit, kicked, punched, or otherwise hurt by someone within the past year? If so, by whom?: No Are you DNR?: No Advance Directives: No Advance Directives Information Provided: Yes Advance Directives Date on File: 12/15/22 service: No Current occupational status: retired Cognitive needs: No Hearing needs: No Vision needs: Yes Meds Allergies Allergy/AdvReac Type Severity Reaction Status Date / Time hydromorphone [From Dilaudid] Allergy Severe Hallucinati Verified 03/27/24 12:37 ons losartan Allergy Intermediate Facial Verified 03/27/24 12:37 Swelling Sulfa (Sulfonamide AdvReac Severe Rash Verified 03/27/24 12:37 Antibiotics) Home Medications ?Medication ?Instructions ?Recorded ?Confirmed ?Last Taken ?Type cholecalciferol (vitamin D3) 25 25 mcg PO DAILY 04/25/22 08/01/24 09/11/23 History mcg (1,000 unit) capsule (Vitamin D3) tacrolimus 0.5 mg capsule, 0.5 mg PO Q12H 08/22/22 08/01/24 09/11/23 History immediate-release spironolactone 50 mg tablet 50 mg PO BID 12/06/23 08/01/24 Unknown History bupropion HCl 300 mg 24 hr tablet, 450 mg PO DAILY 12/18/23 08/01/24 Unknown History extended release hydroxyzine HCl 10 mg tablet 10 mg PO TID 12/18/23 08/01/24 Unknown History Exam Airway Mallampati Class: II TM Dist: <=3cm Neck ROM: Full Loose/Missing/Broken Teeth: No Heart: ok Lungs: ok Assessment and Plan Assessment Anesthesia Assessment: Anesthesia Plan Discussed Final Anesthetic Review NPO: Yes ASA Class: IV Final Preanesthetic Review: No Changes in Pt Med Stat, Meds/Allgs Chart Reviewed, Consent Obtained/Reviewed and Anes Risks/Benef Reviewed Patient Risk: High Procedure Risk: Intermediate Anesthetic Plan Anesthetic Plan: Agree w/ Assess. and Plan and TIVA Disposition: Standard PACU
[2024-08-05 06:31] VITALS: BP 122/67; PULSE 93; RESP 18; TEMP 37; O2SAT 96; BMI 23.1
[2024-08-05] MEDS: Lactated Ringers 1,000 ML 50 ML IVCONT (06:48)
[2024-08-05 07:01] LABS: Hematocrit 31.9 % (37.0-47.0); Hemoglobin 10.2 g/dl (12.0-16.0); Mean Corpuscular Hemoglobin 28.3 pg (27.0-33.0); Mean Corpuscular Volume 88.4 fL (80.0-98.0); Mean Platelet Volume 9.9 fL (9.4-12.3); Platelet Count 85 X10*3/uL (160-400); Red Blood Count 3.61 X10*6/uL (4.20-5.50); Red Cell Distribution Width 15.9 % (11.0-16.0); White Blood Count 3.9 X10*3/uL (4.8-10.8)
[2024-08-05 07:14] LABS: INTERNATIONAL NORM RATIO 1.3 (0.9-1.1); Prothrombin Time 15.2 SEC (10.9-12.4)
--- NOTE | 2024-08-05 07:38 | MHC.SHP ---
Pre-Procedural Eval Section A - 24 Hr Update-Section A only Date of Service: 08/05/24 Section B - Complete if H&P > 30 days Chief Complaint: Esophageal varices without bleeding Relevant Family History (Specify if Yes): No Relevant Social History: None Present Medications: see Short Stay Collaborative assessment Medical History: Significant History (cirrhosis, PBC, GERD) History of Previous Operations: Relevant previous surgery/procedure and date(s) (liver transplant ) Allergies: Allergies Allergy/AdvReac Type Severity Reaction Status Date / Time hydromorphone [From Dilaudid] Allergy Severe Hallucinati Verified 03/27/24 12:37 ons losartan Allergy Intermediate Facial Verified 03/27/24 12:37 Swelling Sulfa (Sulfonamide AdvReac Severe Rash Verified 03/27/24 12:37 Antibiotics) Review of Systems Sugical H&P ROS: Negative: Constitution, Cardiovascular, Respiratory, Neurological, Psychiatric, Hem-Onc, Allergic/Immunologic, Gastrointestinal, Genitourinary, Musculoskeletal, Integumentary, Endocrine and Eyes/Ears/Nose/Throat Exam Surgical H&P Exam: Normal: HEENT, Normal: Heart, Normal: Lungs, Normal: Extremities, Normal: Abdomen, Normal: Skin and Normal: Neurological Plan Diagnosis/Plan: Unchanged I have reviewed the history and physical and performed a pertinent physical examination on my patient. No changes have occurred unless specified. Time Spent With Patient Time: Total time managing care of this patient today ____ minutes.
--- NOTE | 2024-08-05 07:53 | W.PM.OPN ---
Operative Note Operative Note Date of Service: 08/05/24 Narrative: Procedure Description: EGD Indication: hx of h pylori and varices Anesthesia: MAC FLEXIBLE TRANSORAL UPPER GASTROINTESTINAL ENDOSCOPY UPPER ENDOSCOPY Consent: Indications for the procedure and potential complications of bleeding, perforation, reaction to medications and missed diagnosis were discussed with the patient and informed consent was obtained. Instrument: Olympus GIF H 190 J mid size upper endoscope Monitoring: Vital signs and clinical assessment, continuous EKG monitoring, Pulse oximetry, Carbon Dioxide monitoring and blood pressure monitoring were done throughout the procedure. Procedure: The patient was placed in the left lateral decubitis position and pre-procedure medications were administered and a bite block was placed. The endoscope was inserted into the mouth and advanced under direct vision to the third part of duodenum. A careful inspection was made as the upper endoscope was withdrawn including a retroflexed examination of the proximal stomach; Findings and interventions are described below. Findings: Larynx:normal Esophagus: GE junction at 35 cm, diaphragm hiatus at 35 cm, x 2 cords of grade I varices without high risk gutiérrez Stomach: mosaic pattern consistent with portal hypertensive gastropathy. no gastric varices, bx taken to r/o h pylori Duodenum: normal Intervention: biopsy Impression/Findings: portal hypertensive gastropathy esophageal varices PLAN: repeat EGD in about 6-12 months or earlier if clinically indicated
[2024-08-05 07:58] VITALS: BP 114/68; PULSE 86; RESP 17; TEMP 36.9; O2SAT 95
[2024-08-05 08:15] VITALS: BP 124/79; PULSE 82; RESP 18; TEMP 37; O2SAT 98
== END 2024-08-05 08:28 | disposition home or self-care (01) ==
PROVIDERS: Nurse Practitioner; PCP Internal Medicine; Visit Provider Internal Medicine Gastroenterology
PROC: 0DJ08ZZ Inspection of Upper Intestinal Tract, Via Natural or Artificial Opening Endoscopic (ICD-10-PCS; CPT 43235; principal; 2024-08-05 07:30)
DX: I85.00 Esophageal varices without bleeding (principal); Z86.19 Personal history of other infectious and parasitic diseases; K74.3 Primary biliary cirrhosis; K76.6 Portal hypertension; K31.89 Other diseases of stomach and duodenum; K44.9 Diaphragmatic hernia without obstruction or gangrene; Z94.4 Liver transplant status; R18.8 Other ascites; Z79.899 Other long term (current) drug therapy; Z88.2 Allergy status to sulfonamides; Z88.8 Allergy status to other drugs, medicaments and biological substances; Z87.891 Personal history of nicotine dependence
CPT/HCPCS: 43239; 36415; 85027; 85610; 88305; 88313; 88342; J2003; J2704; J3010

== ENCOUNTER → 2024-08-05 06:21 | Outpatient (BNV) | payer MEDICARE, OTHER, SELFPAY | PROVIDERS: PCP Internal Medicine; Visit Provider Internal Medicine Gastroenterology | DX: I85.00 Esophageal varices without bleeding (principal); K31.89 Other diseases of stomach and duodenum | CPT/HCPCS: 43239 ==

== ENCOUNTER 2024-08-18 09:48 | Outpatient (AMB) | payer MEDICARE, OTHER, SELFPAY ==
--- NOTE | 2024-08-18 10:04 | A.OFFVIS_ITS ---
Vital Signs 08/18/24 10:06 Height 4 ft 11 in Weight 112 lb 6.972 oz BMI 22.7 BP 121/57 L Blood Pressure Location Lt brachial Position Sitting Pulse 80 Intake Visit Reasons: S/P EGD Intake Note: Praveena presents in the office as a follow up for her EGD. CC: Stomach pains after eating. She feels at times she is gargly. Appointment Specialist Required: No Allergies hydromorphone [From Dilaudid] Allergy (Severe, Verified 03/27/24 12:37) Hallucinations losartan Allergy (Intermediate, Verified 03/27/24 12:37) Facial Swelling Sulfa (Sulfonamide Antibiotics) Adverse Reaction (Severe, Verified 03/27/24 12:37) Rash HPI HPI S/P EGD: Details: 68 yr old f here for follow up RECAP: She had been seen In GI clinic for investigation of diarrhea with negative studies,including endoscopies and pathology, stool tests, lab work. CTe suggested focal ileitis but capsule endoscopy was negative. Meantime Karen had reduced tacrolimus dose and I gave her colvesalam which helped her diarrhea a lot In the interim she was noted to have ascites and had been c/o LUQ pain for 1 year which was worse with food and position as well as breathing and coughing. Ascitic tap was arranged with 1.4 L removed. Studies revealed SAAG 1.8 and pos cell count for SBP with culture neg samples. She had no fever so she was given PO cipro but repeat labs revealed rising CRP and she had ongoing sx she was advised to come in for further treatment. Labs: WCC of 3.9, hemoglobin of 10.5, hematocrit of 32.8, INR of 1.2, CRP of 5.58, total bili of 1.4, AST of 40, alk-phos of 187, ALT of 27, albumin of 3.4. UA shows leukocyte Estrace Abdomen pelvic CT: no acute intra-abdominal process, cirrhosis and evidence of portal hypertension with splenomegaly and moderate volume ascites, small right pleural effusion She has been given albumin and IV rocephin Repeat labs with increasing CRP and increasing WCC in ascitic fluid despite meropenam use. cultures for bacteria, fungi and TB were negative, ID recommended stopping antibiotics. I suspected maybe she had worsening ileitis which may have been causing the ascitic fluid findings and high CRP, so she had CTe which was unrevealing. changed to [facility] d/c'ed on budesonide Stool PCR GI panel and c diff were negative she was admitted with cough and sputum 03/2022 Imaging revealed right sided pleural effusion, and moderate ascites. Paracentesis revealed possible SBP with pos cell count 365 but this has actually improved from before. She has been taking budesonide as well for possible enteritis, as previous raised ascitic cell count thought to be due to possible enteritis. Pleural fluid was neg for infection. I applied for entyvio and she got it for short while but then stopped She went to [facility] for second opinion, being reassessed, got aldactone whcih helped her ascites! EGD 02/23- no sig varices, gastritis, H plyori pos EGD: 08/24/- varices - small gastritis INTERIM: she is noting pain after eating, more epigastric and just above umbilicus no nausea or vomiting she can have pain after about 10-15 mins of eating she does have satiety still taking aldactone, she had h pylori treatment she denies diarrhea or constipation no blood in stools EXAM: GENERAL: The patient is tremulous, VITAL SIGNS:see workflow HEENT: Nonicteric sclerae, PERRLA, EOMI. Oropharynx clear. Moist mucous membranes. Conjunctivae appear well perfused. No thyroid mass. CHEST: Chest wall is nontender. HEART: Regular rate and rhythm without murmurs. LUNGS: Clear to auscultation bilaterally. ABDOMEN: Soft, positive bowel sounds, tender epigastrium, no organomegaly.no flank tenderness- --scar noted from transplant SKIN: No rash, + bruising, petechiae, or purpura. NEUROLOGIC: Cranial nerves II-XII intact without motor/sensory deficit. tremor, A/P: 1/ fraility, decompensation related to her liver disease--stable 2/ recurrent ascites, with high SAAG supportive of portal HTN, improved with aldactone and lasix, now resolved 3/ encephalopathy with tremor, slurred speech, blurred, vision --better 4/ nutrition defcn, tashia severe Vit a and b6 defc--on supplements 5/ post prandial pain, ?gastroparesis PLAN: 1/ cont lasix 40 mg and aldactone 50 mg 2/ trial of carafate and change nexium to lansoprazole 3/ cont with zinc and other supplements, 4/ varices-- needs f/u EGD in 6 months or so 5/ f/u [facility]--has CT coming up 6/ GES 7/ check nutrients later date 8/ consider lactulose if worsening tremor PFSH Medical History Stroke Frequent falls Ascites Anemia CHF (congestive heart failure) Pancytopenia Anxiety HTN (hypertension) Tremor Chronic diarrhea Primary biliary cholangitis Breast cancer Surgical History History of abdominal paracentesis Hx of sigmoidoscopy H/O wrist surgery Transplant recipient Hx of colonoscopy Hx of esophagogastroduodenoscopy H/O: hysterectomy S/P hip replacement Liver transplant recipient Family History Mother CAD (coronary artery disease) Sister Ovarian cancer Mental health disorder Social History Household Members: Spouse Household Members Other:: , children Housing: House Are you a primary director of critical care to a significant other at home: No Do you presently have visiting nurse or other home services: No Alcohol intake: former Patient Tobacco Use Status: Former Tobacco user Tobacco use type: Cigarette e-Cigarette/Vaping Use: Never Used Second Hand Smoke Exposure: No Advance Directives Date on File: 12/15/22 service: No Current occupational status: retired Cognitive needs: No Hearing needs: No Vision needs: Yes Physical Exam Vital Signs: Last Vital Signs Pulse 80 08/18/24 10:06 BP 121/57 L 08/18/24 10:06 BMI result Body Mass Index 22.7 Assessment & Plan Assessment & Plan (1) Primary biliary cholangitis: Comment: A very pleasant 66-year-old woman known to me from [facility] with history of liver transplant -PBC Recent liver biopsy shows recurrent PBC Code(s): K74.3 - Primary biliary cirrhosis Category: Medical Plan: as above Orders: Orders NM gastric emptying study Today R68.81 - Early satiety Medications: New sucralfate (Carafate) 1 g PO BID 60 tabs 1RF lansoprazole 30 mg PO DAILY 30 caps 2RF Discontinued esomeprazole magnesium Discontinued Reason: Doctor's Order 40 mg PO DAILY 90 caps 2RF Coding Level of Care Code Est Pt Level 3 (03243) Diagnoses Primary biliary cholangitis K74.3
[2024-08-18 10:06] VITALS: BP 121/57; PULSE 80; BMI 22.7
--- OUTSIDE RECORDS SUMMARY | 2024-08-18 10:09 | XMS_ITS | Encounter Summary ---
Author Organization [facility] Address [address] [place] [address] Care Team Providers Care Document Management Analyst Name Role Phone Taylor Zapata Primary Care Provider [phone] Encounter Details Date Type Department Care Team (Late st Contact Info) Description 11/07/2023 Orders Only [facility] XRay [address] [place] [address] Adi Suazo MD [address] [place] [address] Social History Tobacco Use Types Packs/Day Years [...] Info) Description 09/03/2024 9:30 AM EDT Follow-Up [facility] Liver Transplant Services [address] [place] [address] Joycelyn Becerra MD [address] [place] [address] 09/03/2024 10:00 AM EDT Nutrition [facility] Liver Transplant Services [address] [place] [address] Joycelyn Becerra MD [address] [place] [address] [facility] [place] 10/16/2024 8:30 AM EDT Office Visit [facility] Building Neurology Clinic [address] [place] [address] Carin Starkey MD [address] [place] [address] documented as of this encounter Visit Diagnoses Not on filedocumented in this encounter Care Teams Document Management Analyst Relationship Specialty Start Date End Date Taylor Zapata 1962 [place] [address] PCP - General Internal Medicine 12/01/23 documented as of this encounter
--- OUTSIDE RECORDS SUMMARY | 2024-08-18 10:09 | XMS_ITS | Referral Summary ---
Author Organization [facility] Address [address] [place] [address] Care Team Providers Care Insurance Counsel Name Role Phone Taylor Zapata Primary Care Provider [phone] Encounters Date Type Department Care Team Description 07/25/2024 Refill [facility] Liver Transplant Services [address] [place] [address] Joycelyn Becerra MD 07/18/2024 Orders Only [facility] Transplant Department [address] [place] [id number] Ida Coon RN History of liver transplant (HCC) (Primary Dx); Encounter for immunosuppression management after liver transplant (HCC) 07/03/2024 Orders Only [facility] Transplant Department [address] [place] [address] Joycelyn Becerra MD 07/01/2024 myChart Message [facility] Liver Transplant Services [address] [place] [address] [address] Scan 06/18/2024 Orders Only [facility] ACC Building Mammography [address] [place] [address] 5th [place] [address] Pablito Taveras MD 06/18/2024 11:00 AM EDT Nutrition [facility] Renal Transplant [address] [place] [address] Liver replaced by transplant (Primary Dx) 06/18/2024 10:30 AM EDT Follow-Up [facility] Liver Transplant Services [address] [place] [address] Joycelyn Becerra MD Cirrhosis of liver with [...] MG DOSE TO MAKE 450 MG DAILY 11/13/2 024 Active buPROPion XL (WELLBUTRIN XL) 300 [...] Info) Description 09/03/2024 9:30 AM EDT Follow-Up [facility] Liver Transplant Services [address] [place] [address] Joycelyn Becerra MD [address] [place] [address] 09/03/2024 10:00 AM EDT Nutrition [facility] Liver Transplant Services [address] [place] [address] Joycelyn Becerra MD [address] [place] [address] [facility] [place] 10/16/2024 8:30 AM EDT Office Visit [facility] Building Neurology Clinic [address] [place] [address] Carin Starkey MD [address] [place] [phone] Procedures * Due to [place] state law, this organization might not be sharing negative HIV tests. Procedure Name Priority Date/Time Associated Diagnosis Comments DIFFERENTIAL,MANUAL- [id number] Routine 06/12/2024 10:01 AM EDT TACROLIMUS LEVEL [...] cells/uL 06/12/2024 10:47 PM EDT [facility] Absolute Band Neutrophils 71 0 - 750 cells/uL 06/12/2024 10:47 PM EDT [facility] Absolute Metamyelocytes 37(H) 0 cells/uL 06/12/2024 10:47 PM EDT [facility] Absolute Lymphocytes 680(L) 850 - 3,900 cells/uL 06/12/2024 10:47 PM EDT [facility] Absolute Monocytes 394 200 - 950 cells/uL 06/12/2024 10:47 PM EDT [facility] Absolute Eosinophils 109 15 - 500 cells/uL 06/12/2024 10:47 PM EDT [facility] Absolute Basophils 34 0 - 200 cells/uL 06/12/2024 10:47 PM EDT [facility] Neutrophils 61.0 % 06/12/2024 10:47 PM EDT [facility] Band Neutrophils 2.1 % 06/13/19 25 10:47 PM EDT [facility] Metamyelocytes 1.1(H) % 06/12/2024 10:47 PM EDT [facility] Lymphocytes 20.0 % 06/12/2024 10:47 PM EDT [facility] Monocytes 11.6 % 06/12/2024 10:47 PM EDT [facility] Eosinophils 3.2 % 06/12/2024 10:47 PM EDT [facility] Basophils 1.0 % 06/12/2024 10:47 PM EDT [facility] Platelet Estimation DECREASED(A ) ADEQUATE 06/12/2024 10:47 PM EDT [facility] Note See Comments 06/12/2024 10:47 PM EDT [facility] Comment: Although an automated CBC was ordered, [...] ORDERABLES Final Resul t [facility] [address] [facility] [address], [place] [address], [facility] [address] [place] [address] * (ABNORMAL) CBC Auto Differential (06/12/2024 10:01 AM EDT) [facility] White Blood Cell Count 3.4(L) 3.8 - 10.8 Thousand/ uL 06/12/2024 10:47 PM EDT [facility] Red Blood Cell Count 3.73(L) 3.80 - 5.10 Million/u L 06/12/2024 10:47 PM EDT [facility] Hemoglobin 10.7(L) 11.7 - 15.5 g/dL 06/12/2024 10:47 PM EDT [facility] Hematocrit 33.3(L) 35.0 - 45.0 % 06/12/2024 10:47 PM [facility] MCV 89.3 80.0 - 100.0 fL 06/12/2024 10:47 PM [facility] MCH 28.7 27.0 - 33.0 pg 06/12/2024 10:47 PM [facility] MCHC 32.1 32.0 - 36.0 g/dL 06/12/2024 10:47 PM [facility] Comment: For adults, a slight decrease in the calculated MCHC value (in the range of 30 to 32 g/dL) is most likely not clinically significant; however, it should be interpreted with caution in correlation with other red cell parameters and the patient's clinical condition. RDW 15.8(H) 11.0 - 15.0 % 06/12/2024 10:47 PM [facility] Platelet Count 83(L) 140 - 400 Thousand/ uL 06/12/2024 10:47 PM [facility] MPV 11.5 7.5 - 12.5 fL 06/12/2024 10:47 PM [facility] Blood Structure of peripheral vein / Unknown 06/12/2024 10:01 AM EDT 06/12/2024 8:56 PM EDT Narrative [facility] - 06/13/2024 12:57 AM EDT FASTING:YES ?? CONTACT HISTORY: DATE ?TIME ? CONTACT 06/13/2024 ?12:50 AM ? TEST NAME ?ACTION TAKEN ?DO NOT NOTIFY CLIENT WHEN RESULTS RELEASED Joycelyn Becerra MD LAB BLOOD ORDERABLES Final Resul t Performing Organization Address [facility] Co de Phone Number [facility] [address] [address], [place] [address], [place] [phone] [facility] [address] [place] [address] * (ABNORMAL) Tacrolimus level (06/12/2024 10:01 AM EDT) Tacrolimus, Highly Sensitive 4.6(L) mcg/L 06/13/2024 12:50 AM EDT [facility] Comment: No definitive therapeutic or toxic ranges have been established. Optimal blood drug levels are influenced by type of transplant, patient response, time post- transplant, co-administration of other drugs, and drug formulation. The following trough range is a suggested guideline: 5.0-20.0 mcg/L. This test was developed and its analytical performance characteristics have been determined by [facility]. It has not been cleared or approved [...] ORDERABLES Final Resul t Performing Organization Address City/[facility]/ZIP Co de Phone Number [facility] [address], [place] [address], [facility] [address] [place] [address] * Magnesium (06/12/2024 10:01 AM EDT) Pathologist [facility] Magnesium 2.0 1.5 - 2.5 mg/dL 06/12/2024 11:32 PM EDT [facility] Blood Structure of peripheral vein / Unknown 06/12/2024 10:01 AM EDT 06/12/2024 9:50 PM EDT Narrative [facility] - 06/13/2024 12:57 AM EDT FASTING:YES ?? CONTACT HISTORY: DATE ?TIME ? CONTACT 06/13/2024 ?12:50 AM ? TEST NAME ?ACTION TAKEN ?DO NOT NOTIFY CLIENT WHEN RESULTS RELEASED us Joycelyn Becerra MD LAB BLOOD ORDERABLES Final Resul t [facility] [address] [place] [address], [facility] [address] [place] [address] * (ABNORMAL) Comprehensive Metabolic Panel (06/12/2024 10:01 AM EDT) Glucose 91 65 - 99 mg/dL 06/12/2024 11:32 PM EDT [facility] Comment: ? Fasting reference interval BUN 26(H) 7 - 25 mg/dL 06/12/2024 11:32 PM EDT [facility] Creatinine 1.15(H) 0.50 - 1.05 mg/dL 06/12/2024 11:32 PM [facility] eGFR 52(L) > OR = 60 mL/min/1. 73m2 06/12/2024 11:32 PM [facility] Bun/Creatinine Ratio 23(H) 6 - 22 (calc) 06/12/2024 11:32 PM [facility] Sodium 138 135 - 146 mmol/L 06/12/2024 11:32 PM [facility] Potassium 4.8 3.5 - 5.3 mmol/L 06/12/2024 11:32 PM [facility] Chloride 110 98 - 110 mmol/L 06/12/2024 11:32 PM [facility] Carbon Dioxide 24 20 - 32 mmol/L 06/12/2024 11:32 PM [facility] Calcium 8.4(L) 8.6 - 10.4 mg/dL 06/12/2024 11:32 PM [facility] Protein, Total 6.7 6.1 - 8.1 g/dL 06/12/2024 11:32 PM [facility] Albumin 3.5(L) 3.6 - 5.1 g/dL 06/12/2024 11:32 PM [facility] Globulin 3.2 1.9 - 3.7 g/dL (calc) 06/12/2024 11:32 PM [facility] Albumin/Globuli n Ratio 1.1 1.0 - 2.5 (calc) 06/12/2024 11:32 PM [facility] Bilirubin, Total 1.1 0.2 - 1.2 mg/dL 06/12/2024 11:32 PM [facility] Alkaline Phosphatase 105 37 - 153 U/L 06/12/2024 11:32 PM [facility] AST 24 10 - 35 U/L 06/12/2024 11:32 PM [facility] ALT 21 6 - 29 U/L 06/12/2024 11:32 PM [facility] Blood Structure of peripheral vein / Unknown 06/12/2024 10:01 AM EDT 06/12/2024 9:50 PM EDT Narrative [facility] - 06/13/2024 12:57 AM EDT FASTING:YES ?? CONTACT HISTORY: DATE ?TIME ? CONTACT 06/13/2024 ?12:50 AM ? TEST NAME ?ACTION TAKEN ?DO NOT NOTIFY CLIENT WHEN RESULTS RELEASED us Joycelyn Becerra MD LAB BLOOD ORDERABLES Final Resul t [facility] [address] [facility] [address], [place] [address], [facility] [address] [place] [address] from Last 3 Months Insurance [employer] MEDICARE MEDICARE FOR LIFE Advance Directives Documents on File Type Date Recorded Patient Fig Washer Expl [facility] Health Care Proxy 11/21/2023 2:03 PM 06-19 * Full Code (Latest Code Status on File) Date Activated Date Inactivated Comments 02/22/2024 5:17 PM 02/22/2024 7:43 PM * Full Code Date Activated Date Inactivated Comments 02/22/2024 2:16 PM 02/22/2024 5:17 PM Care Teams Insurance Counsel Relationship Specialty Start Date End Date Taylor Zapata 1962 [place] [address] PCP - General Internal Medicine 12/01/23
--- OUTSIDE RECORDS SUMMARY | 2024-08-18 10:09 | XMS_ITS | Clinical Summary ---
Author Organization [facility] Address [address] [place] [address] Care Team Providers Care Pigs Feet Finisher Name Role Phone JodiTaylor Primary Care Provider [phone] Allergies Active Allergy Reactions Criticality Noted Date [...] Type Department Care Team Description 07/25/2024 Refill [facility] Liver Transplant Services [address] [place] [address] Joycelyn Becerra MD 07/18/2024 Orders Only [facility] Transplant Department [address] [place] [address] Ida Coon RN History of liver transplant (HCC) (Primary Dx); Encounter for immunosuppression management after liver transplant (HCC) 07/03/2024 Orders Only [facility] Transplant Department [address] [place] [address] Joycelyn Becerra MD 07/01/2024 myChart Message [facility] Liver Transplant Services [address] [place] [address] [address] Scan 06/18/2024 11:00 AM EDT Nutrition [facility] Renal Transplant [address] [place] [address] Liver replaced by transplant (Primary Dx) 06/18/2024 10:30 AM EDT Follow-Up [facility] Transplant Services [address] [place] [address] Joycelyn Becerra MD Cirrhosis of liver with ascites, unspecified hepatic cirrhosis type (Primary Dx); Tremor; History of liver transplant; Primary biliary cholangitis 06/18/2024 Orders Only [facility] ACC Building [address], 5th floor [facility] [place] [address] Pablito Taveras MD from Last 3 Months [...] Info) Description 09/03/2024 9:30 AM EDT Follow-Up [facility] Liver Transplant Services [address] [place] [address] Joycelyn Becerra MD [address] [place] [address] 09/03/2024 10:00 AM EDT Nutrition [facility] Liver Transplant Services [address] [place] [address] Joycelyn Becerra MD [address] [place] [address] [facility] NUTRITION [place], [place] 10/16/2024 8:30 AM EDT Office Visit [facility] Building Neurology Clinic [address] [place] [address] Carin Starkey MD [address] [place] [address] Health Maintenance Due Date Last Done Comments [...] Screening Completed 5 Procedures * Due to [place] state law, this organization might not be sharing negative HIV tests. Procedure Name Priority Date/Time Associated Diagnosis Comments DIFFERENTIAL,MANUAL- [id number] Routine 06/12/2024 10:01 AM EDT TACROLIMUS LEVEL [...] Last 3 Months Results * Due to [place] state law, this organization might not be sharing negative HIV tests. * (ABNORMAL) Differential, Manual (06/12/2024 10:01 AM EDT) Absolute Neutrophils 2,074 1,500 - 7,800 cells/uL 06/12/2024 10:47 PM EDT [facility] Absolute Band Neutrophils 71 0 - 750 cells/uL 06/12/2024 10:47 PM EDT [facility] Absolute Metamyelocytes 37(H) 0 cells/uL 06/12/2024 10:47 PM EDT [facility] Absolute Lymphocytes 680(L) 850 - 3,900 cells/uL 06/12/2024 10:47 PM EDT [facility] Absolute Monocytes 394 200 - 950 cells/uL 06/12/2024 10:47 PM EDT [facility] Absolute Eosinophils 109 15 - 500 cells/uL 06/12/2024 10:47 PM EDT [facility] Absolute Basophils 34 0 - 200 cells/uL 06/12/2024 10:47 PM EDT [facility] Neutrophils 61.0 % 06/12/2024 10:47 PM EDT [facility] Band Neutrophils 2.1 % 06/13/19 10:47 PM EDT [facility] Metamyelocytes 1.1(H) % 06/12/2024 10:47 PM EDT [facility] Lymphocytes 20.0 % 06/12/2024 10:47 PM EDT [facility] Monocytes 11.6 % 06/12/2024 10:47 PM EDT [facility] Eosinophils 3.2 % 06/12/2024 10:47 PM EDT [facility] Basophils 1.0 % 06/12/2024 10:47 PM EDT [facility] Platelet Estimation DECREASED(A ) ADEQUATE 06/12/2024 10:47 PM EDT [facility] Note See Comments 06/12/2024 10:47 PM EDT [facility] Comment: Although an automated CBC was [...] [address], [place] [address], [place] [phone] [facility] [address] [place] [address] * (ABNORMAL) CBC Auto Differential (06/12/2024 10:01 AM EDT) White Blood Cell Count 3.4(L) 3.8 - 10.8 Thousand/ uL 06/12/2024 10:47 PM EDT [facility] Red Blood Cell Count 3.73(L) 3.80 - 5.10 Million/u L 06/12/2024 10:47 PM EDT [facility] Hemoglobin 10.7(L) 11.7 - 15.5 g/dL 06/12/2024 10:47 PM EDT [facility] Hematocrit 33.3(L) 35.0 - 45.0 % 06/12/2024 10:47 PM EDT [facility] MCV 89.3 80.0 - 100.0 fL 06/12/2024 10:47 PM EDT [facility] MCH 28.7 27.0 - 33.0 pg 06/12/2024 10:47 PM EDT [facility] MCHC 32.1 32.0 - 36.0 g/dL 06/12/2024 10:47 PM EDT [facility] Comment: For adults, a slight decrease in the calculated MCHC value (in the range of 30 to 32 g/dL) is most likely not clinically significant; however, it should be interpreted with caution in correlation with other red cell parameters and the patient's clinical condition. RDW 15.8(H) 11.0 - 15.0 % 06/12/2024 10:47 PM EDT [facility] Platelet Count 83(L) 140 - 400 Thousand/ uL 06/12/2024 10:47 PM EDT [facility] MPV 11.5 7.5 - 12.5 fL 06/12/2024 10:47 PM EDT [facility] Blood Structure of peripheral vein / Unknown 06/12/2024 10:01 AM EDT 06/12/2024 8:56 PM EDT Narrative [facility] - 06/13/2024 12:57 AM EDT FASTING:YES ?? CONTACT HISTORY: DATE ?TIME ? CONTACT 06/13/2024 ?12:50 AM ? TEST NAME ?ACTION TAKEN ?DO NOT NOTIFY CLIENT WHEN RESULTS RELEASED us Joycelyn Becerra MD LAB BLOOD ORDERABLES Final Resul t [facility] [address], [place] [address], [place] [phone] [employer] [facility] [address] [place] [address] * (ABNORMAL) Tacrolimus level (06/12/2024 10:01 AM EDT) Pathologist [facility] Tacrolimus, Highly Sensitive 4.6(L) mcg/L 06/13/2024 12:50 AM EDT [facility] Comment: No definitive therapeutic or toxic ranges have been established. Optimal blood drug levels are influenced by type of transplant, patient response, time post- transplant, co-administration of other drugs, and drug formulation. The following trough range is a suggested guideline: 5.0-20.0 mcg/L. This test was developed and its analytical performance characteristics have been determined by [employer]. It has not been cleared or approved [...] [address], [place] [address], [facility] [address] [place] [address] * Magnesium (06/12/2024 10:01 AM EDT) [facility] Magnesium 2.0 1.5 - 2.5 mg/dL 06/12/2024 11:32 PM EDT [facility] Blood Structure of peripheral vein / Unknown [...] [address], [place] [address], [employer] [facility] [address] [place] [address] * (ABNORMAL) Comprehensive Metabolic Panel (06/12/2024 10:01 AM EDT) Glucose 91 65 - 99 mg/dL 06/12/2024 11:32 PM EDT [employer] [facility] Comment: ? Fasting reference interval BUN 26(H) 7 - 25 mg/dL 06/12/2024 11:32 PM EDT [facility] Creatinine 1.15(H) 0.50 - 1.05 mg/dL 06/12/2024 11:32 PM EDT [facility] eGFR 52(L) > OR = 60 mL/min/1. 73m2 06/12/2024 11:32 PM EDT [facility] [place] [facility] Bun/Creatinine Ratio 23(H) 6 - 22 (calc) 06/12/2024 11:32 PM EDT [facility] Sodium 138 135 - 146 mmol/L 06/12/2024 11:32 PM [facility] Potassium 4.8 3.5 - 5.3 mmol/L 06/12/2024 11:32 PM [facility] Chloride 110 98 - 110 mmol/L 06/12/2024 11:32 PM [facility] Carbon Dioxide 24 20 - 32 mmol/L 06/12/2024 11:32 PM [facility] Calcium 8.4(L) 8.6 - 10.4 mg/dL 06/12/2024 11:32 PM [facility] Protein, Total 6.7 6.1 - 8.1 g/dL 06/12/2024 11:32 PM [facility] Albumin 3.5(L) 3.6 - 5.1 g/dL 06/12/2024 11:32 PM [facility] Globulin 3.2 1.9 - 3.7 g/dL (calc) 06/12/2024 11:32 PM [facility] Albumin/Globuli n Ratio 1.1 1.0 - 2.5 (calc) 06/12/2024 11:32 PM [facility] Bilirubin, Total 1.1 0.2 - 1.2 mg/dL 06/12/2024 11:32 PM [facility] Alkaline Phosphatase 105 37 - 153 U/L 06/12/2024 11:32 PM [facility] AST 24 10 - 35 U/L 06/12/2024 11:32 PM [facility] ALT 21 6 - 29 U/L 06/12/2024 11:32 PM [facility] Blood Structure of peripheral vein / [...] [address] [address], [place] [address], [place] [phone] [facility] [address] [place] [address] from Last 3 Months Insurance [email or web address] MEDICARE MEDICARE [facility] Advance Directives Documents on File Type Date Recorded Patient Trumpet Player Expl [facility] Health Care Proxy 11/21/2023 2:03 PM 06-19 * Full Code (Latest Code Status on File) Date Activated Date Inactivated Comments 02/22/2024 5:17 PM 02/22/2024 7:43 PM * Full Code Date Activated Date Inactivated Comments 02/22/2024 2:16 PM 02/22/2024 5:17 PM Care Teams Pigs Feet Finisher Relationship Specialty Start Date End Date Taylor Zapata [address] [place] [address] PCP - General Internal Medicine 12/01/23
--- OUTSIDE RECORDS SUMMARY | 2024-08-18 10:09 | XMS_ITS | Encounter Summary ---
Author Organization [facility] Address [address] [place] [address] Care Team Providers Care Medical Van Driver Name Role Phone Taylor Zapata Primary Care Provider [phone] Encounter Details Date Type Department Care Team (Late st Contact Info) Description 01/02/2024 Orders Only [facility] Interventional Radiology [address] [place] [address] Vanessa Comer PA [address] [place] [address] Social History Tobacco Use Types Packs/Day Years [...] Info) Description 09/03/2024 9:30 AM EDT Follow-Up [facility] Liver Transplant Services [address] [place] [address] Joycelyn Becerra MD [address] [place] [address] 09/03/2024 10:00 AM EDT Nutrition [facility] Liver Transplant Services [address] [place] [address] Joycelyn Becerra MD [address] [place] [address] [facility] [place]ITION [place], [place] 10/16/2024 8:30 AM EDT Office Visit [facility] Building Neurology Clinic [address] [place] [address] Carin Starkey MD [address] [place] [address] documented as of this encounter Visit Diagnoses Not on filedocumented in this encounter Care Teams Medical Van Driver Relationship Specialty Start Date End Date Taylor Zapata [address] [place] [address] PCP - General Internal Medicine 12/01/23 documented as of this encounter
--- OUTSIDE RECORDS SUMMARY | 2024-08-18 10:09 | XMS_ITS | Encounter Summary ---
Author Organization [facility] Address [address] [place] [address] Care Team Providers Care Thread Dresser Name Role Phone Taylor Zapata Primary Care Provider [phone] Encounter Details Date Type Department Care Team (Late st Contact Info) Description 06/18/2024 Orders Only [facility] ACC Building Mammography [address] [facility], 5th [place] [address] Pablito Taveras MD [address] [place] [address] Social History Tobacco Use Types Packs/Day Years [...] Info) Description 09/03/2024 9:30 AM EDT Follow-Up [facility] Liver Transplant Services [address] [place] [address] Joycelyn Becerra MD [address] [place] [address] 09/03/2024 10:00 AM EDT Nutrition [facility] Liver Transplant Services [address] [place] [address] Joycelyn Becerra MD [address] [place] [address] [facility] NUTRITION [place], [place] 10/16/2024 8:30 AM EDT Office Visit [facility] Building Neurology Clinic [address] [place] [address] Carin Starkey MD [address] [place] [address] documented as of this encounter Visit Diagnoses Not on filedocumented in this encounter Care Teams Thread Dresser Relationship Specialty Start Date End Date Taylor Zapata [address] [place] [address] PCP - General Internal Medicine 12/01/23 documented as of this encounter
--- OUTSIDE RECORDS SUMMARY | 2024-08-18 10:09 | XMS_ITS | Patient Health Record ---
Author Organization [employer] [facility] Address [address] [address] Care Team Providers Care Senior Power Plant Operator Name Role Phone Taylor Zapata MD Primary Care Provider HORACIO Dubois Unavailable [phone] Allergies Allergen (clinical drug ingredient) Drug/Non Drug [...] D3 1000 IU ORAL daily for -3 [facility] 04/03/2013 Active Vitamin B6 100 MG 1 tablet Orally Once a day Active Ursodiol 300MG 2 ORAL daily for -3 [facility] 01/23/2011 Active Tacrolimus 0.5 MG as directed [...] Notes Problem Malignant neoplasm of female breast (948721698) Malignant neoplasm of breast (female), unspecified site (174.9) Active confirmed Problem Tension-type headache (disorder) (648023641) Tension type headache, unspecified (339.10) Active confirmed Problem Biliary cirrhosis (9413479) Biliary cirrhosis (571.6) Active confirmed Problem Age-related osteoporosis (162529304) Age-related osteoporosis without current pathological fracture (M81.0) Active confirmed Problem Malignant neoplasm of female breast (125077006) Malignant neoplasm of unspecified site of unspecified female breast (C50.919) Active confirmed Problem Irritable bowel syndrome with diarrhea (633777516) Irritable bowel syndrome with diarrhea (K58.0) Active confirmed Problem Primary biliary cirrhosis (66636117) Primary biliary cirrhosis (K74.3) Active confirmed Problem Family history of malignant neoplasm of ovary (015754895) Family history of malignant neoplasm of ovary (Z80.41) Active confirmed Problem Personal history of primary malignant neoplasm of breast (512426569) Personal history of malignant neoplasm of breast (Z85.3) Active confirmed Problem Personal history of primary malignant neoplasm of female genital organ (035346002) Personal history of malignant neoplasm of other parts of uterus (Z85.42) Active confirmed Vital Signs Temperature 97.7 degrees Fahrenheit 03/11/2024 Blood pressure diastolic 68 mm Hg 03/11/2024 Height 59 in 03/11/2024 Blood pressure systolic 118 mm Hg 03/11/2024 Weight 110 lbs 03/11/2024 BMI 22.21 kg/m2 03/11/2024 Encounters Encounter Location Date Provider Diagnosis [address] [place] [address] 03/11/2024 HORACIO DOW Encounter for gynecological examination [...] MAMMOGRAM, RIGHT BREAST 03/06 1,25OH VITAMIN D 03/02/2015 1,25OH VITAMIN D 02/08/2016 ALK PHOS 03/02/2015 ALK PHOS ISO 03/02/2015 [...] Coverage End Date MEDICARE [address] [place], [place] [id number] JESSICA KELLEY Self - patient is the insured / [employer] [address] [place] [address] [id number] JESSICA KELLEY Self - patient is the [...]
--- OUTSIDE RECORDS SUMMARY | 2024-08-18 10:09 | XMS_ITS | Continuity of Care Document ---
Author Name [facility] Organization [facility] Care Team Providers Care Organ Assembler Name Role Phone [facility] Unavailable Unavailable Medications Combined list of outpatient [...] [facility], [address] [place] [id number] : 2023 0 Pharmac y Data Transac tion Service Facilit y ALBUTEROL SULFATE HFA (albuterol sulfate), 90 MCG, HFA AER AD, INHALATION, [employer] 6.7 g CANISTER Cancele d [id number] : 2023 0 Pharmac y Data Transac tion Service Facilit y ALBUTEROL SULFATE HFA (albuterol sulfate), 90 MCG, HFA AER AD, INHALATION, [employer] 6.7 g CANISTER Active [id number] 4 2023 6.7 Pharmac y Data Transac tion Service Facilit y BUPROPION XL (bupropion HCl), 300 MG, TAB ER 24H, ORAL, LUPIN PHARMACEU, 500 ea. BOTTLE Cance[place] d [id number] : 2023 0 Pharmac y Data Transac tion Service Facilit y BUPROPION XL (bupropion HCl), 300 MG, TAB ER 24H, ORAL, LUPIN PHARMACEU, 500 ea. BOTTLE Active [id number] 4 2023 90 Pharmac y Data Transac tion Service Facilit y COLESEVELAM HCL (colesevela m HCl), 625 MG, TABLET, ORAL, JAEL PHARMAC, 180 ea. BOTTLE Cancele d [id number] : 2023 0 Pharmac y Data Transac tion Service Facilit y ESOMEPRAZOL E MAGNESIUM (esomeprazo le magnesium), 40 MG, CAPSULE DR, ORAL, AUROBINDO PHARM, 90 ea. BOTTLE Cancele d [id number] : 2023 0 Pharmac y Data Transac tion Service Facilit y ESOMEPRAZOL E MAGNESIUM (esomeprazo le magnesium), 40 MG, CAPSULE DR, ORAL, AUROBINDO PHARM, 90 ea. BOTTLE Active [id number] 4 2023 90 Pharmac y Data Transac tion Service Facilit y ESOMEPRAZOL E MAGNESIUM (esomeprazo le magnesium), 40 MG, CAPSULE DR, ORAL, AUROBINDO PHARM, 90 ea. BOTTLE Active [id number] 4 2023 90 Pharmac y Data Transac tion Service Facilit y FLUTICASONE PROPIONATE (FLUTICASON E PROPIONATE) , 50MCG, SPRAY SUSP, NASAL, APOTEX LINDSEY, 16 g AER W/ADAP Cancele d [id number] : 2023 0 Pharmac y Data Transac tion Service Facilit y GABAPENTIN (gabapentin ), 300 MG, CAPSULE, ORAL, XLCARE PHARMACE, 270 ea. BOTTLE Active [id number] 4 2023 180 Pharmac y Data Transac tion Service Facilit y GALZIN (ZINC ACETATE), 50MG, CAPSULE, ORAL, GATE PHARM, 250 ea. BOTTLE Cancele d [id number] : 2023 0 Pharmac y Data Transac tion Service Facilit y GALZIN (ZINC ACETATE), 50MG, CAPSULE, ORAL, GATE PHARM, 250 ea. BOTTLE Cancele d [id number] : 2023 0 Pharmac y Data Transac tion Service Facilit y GALZIN (ZINC ACETATE), 50MG, CAPSULE, ORAL, GATE PHARM, 250 ea. BOTTLE Cancele d [id number] : 2023 0 Pharmac y Data Transac tion Service Facilit y GALZIN (ZINC ACETATE), 50MG, CAPSULE, ORAL, GATE PHARM, 250 ea. BOTTLE Cancele d [id number] : 2023 0 Pharmac y Data Transac tion Service Facilit y GALZIN (ZINC ACETATE), 50MG, CAPSULE, ORAL, GATE PHARM, 250 ea. BOTTLE Cancele d [id number] : 2023 0 Pharmac y Data Transac tion Service Facilit y ONDANSETRON ODT (ONDANSETRO N), 4 MG, TAB RAPDIS, ORAL, CITRON PHARMA L, 30 ea. BLIST PACK Cancele d [id number] : 2023 0 Pharmac y Data Transac tion Service Facilit y TACROLIMUS (tacrolimus ), 0.5 MG, CAPSULE, ORAL, [employer] 100 ea. BOTTLE Active [id number] 4 2023 180 Pharmac y Data Transac tion Service Facilit y URSODIOL (URSODIOL), 500 MG, TABLET, ORAL, PAR PHARM., 100 ea. BOTTLE Cancele d [id number] : 2023 0 Pharmac y Data Transac tion Service Facilit y URSODIOL (URSODIOL), 500 MG, TABLET, ORAL, PAR PHARM., 100 ea. BOTTLE Cancele d [id number] : 2023 0 Pharmac y Data Transac tion Service Facilit y URSODIOL (ursodiol), 500 MG, TABLET, ORAL, ZYDUS PHARMACEU, 100 ea. BOTTLE Active [id number] 2023 180 Pharmac y Data Transac tion Service Facilit y Immunizations Combined list of available immunizations from the Department of Defense and Veterans Affairs facilities. Immunization Series Date Given Administered By Site Reaction Lot Number CVX Code Drug Personal Injury Law Specialist Status Comments Source COVID-19, mRNA, LNP-S, PF, 100 mcg or 50 mcg dose 2021 SMABRIAN, Modern[employer] (MOD) Not Given COVID-19, mRNA, LNP-S, PF, 100 mcg or 50 mcg dose DoD Influenza vaccine, quadrivalent, adjuvanted 2020 NING, () Not Given Influenza vaccine, quadrival ent, adjuvante d DoD Social History Combined list of available smoking, tobacco, and other social history from Department of Defense and Veterans Affairs facilities. Social History Type Response Date Comment Sour e This section is an empty social history section. DoD
--- OUTSIDE RECORDS SUMMARY | 2024-08-18 10:09 | XMS_ITS ---
Author Organization [facility] Address [address] [place] [address] Care Team Providers Care Auto Accessories Installer Name Role Phone Taylor Zapata Primary Care Provider [phone] Transplant Episode Liver Recipient [facility] ([place], [place]) - [facility] Transplanted on 09/30/2015 Marked as Active Follow-up on 09/30/2015 Liver CoordinatorIda Coon RN Phone: N/A Fax: N/A Email: N/A Transplanted Elsewhere: [facility] ([place], [place]) - [facility] Coordinator: Phone: Fax: [place] Organ Diagnosis Organ Primary Contributory Liver Primary Biliary Cirrhosis (PBC) Care Team Name Role Phone Fax Email Ida Coon RN Liver Coordinator N/A N/A N/A Events Post-Transplant Pre-Transplant Transplanted: 09/30/2015 Appointments (07/19/2024 - 09/18/2024) When With Visit Type Description 09/03/2024 Transplant - Lukas Galloway Follow Up 09/03/2024 Transplant - Lukas Becerra Follow Up
== END 2024-08-18 10:31 | disposition home or self-care (01) ==
LOC: HO.HGI 09:49
PROVIDERS: PCP Internal Medicine; Visit Provider Internal Medicine Gastroenterology
DX: K74.3 Primary biliary cirrhosis (principal)
CPT/HCPCS: 99213

== ENCOUNTER → 2024-08-18 09:48 | Outpatient (BNVA) | payer MEDICARE, OTHER, SELFPAY | PROVIDERS: PCP Internal Medicine; Visit Provider Internal Medicine Gastroenterology | DX: K74.3 Primary biliary cirrhosis (principal) | CPT/HCPCS: 99212 ==

== ENCOUNTER 2024-08-21 08:05 | Outpatient (REF) | payer MEDICARE, OTHER, SELFPAY ==
--- NOTE | ~2024-08-21 | CT_ITS ---
EXAMINATION: CT ABDOMEN PELVIS WITH IV CONTRAST HISTORY: HEPATIC CIRRHOSIS WITH ASCITES COMPARISON: Comparison is made with prior examinations dated 03/30/2022 and 11 at 22. TECHNIQUE: CT scan of the abdomen and pelvis was performed following administration of 85 mL Omnipaque 350 using standard departmental protocol. Delayed images through the upper abdomen were also obtained. Coronal and sagittal reformatted images were generated and reviewed. Oral contrast material was not administered at the request of the referring physician. This CT exam was performed with one or more of the following dose reduction techniques: automated exposure control, adjustment of the mA and/or kV according to patient size, use of iterative reconstruction technique. DLP: 649 mGy-cm FINDINGS: LOWER CHEST: There are moderate bilateral pleural effusions with adjacent compressive atelectasis. CARDIOVASCULATURE: The heart is normal in size. There is no pericardial effusion. LIVER: The liver again demonstrates a nodular contour, consistent with cirrhosis. No liver mass is identified. The hepatic and portal veins are patent. GALLBLADDER / BILE DUCTS: The gallbladder is surgically absent. Mild prominence of the common bile duct is unchanged, likely related to prior cholecystectomy.. SPLEEN: The spleen is markedly enlarged. No focal splenic lesion is identified. PANCREAS: The pancreas is unremarkable in appearance. ADRENAL GLANDS: Within normal limits. KIDNEYS/RETROPERITONEUM: No renal calculi are identified. There is no hydronephrosis. No renal masses are identified. LYMPH NODES: There are scattered para-aortic lymph nodes which are more notable for number than size. VASCULATURE: The abdominal aorta demonstrates atherosclerotic calcification, but is normal in caliber. MESENTERY/PERITONEUM: There is a small amount of ascites around the spleen and in the pelvis. There is omental soft tissue thickening in the upper abdomen which is unchanged and may represent postsurgical scarring. There is no free intraperitoneal gas. STOMACH: The stomach is collapsed, limiting evaluation. SMALL BOWEL: There is a large amount of stool throughout the colon. COLON: The colon is unremarkable. APPENDIX: Normal. URINARY BLADDER/PELVIC ORGANS: The urinary bladder is obscured by streak artifact from bilateral total hip arthroplasties. The patient is status post hysterectomy. BONES / SOFT TISSUES: There is degenerative disc disease of the spine. CT/CT abdomen pelvis w IV con IMPRESSION: 1. Cirrhosis of the liver with splenomegaly and a small amount of abdominal ascites. 2. Moderate bilateral pleural effusions. 3. Large amount of stool throughout the colon. Electronically signed by: Howard Palomo MD 08/21/2024 09:25 AM EDT
--- OUTSIDE RECORDS SUMMARY | 2024-08-21 08:08 | XMS_ITS | Encounter Summary ---
Author Organization [facility] Address [address] [place] [address] Care Team Providers Care Furnace Caretaker Name Role Phone Taylor Zapata Primary Care Provider [phone] Encounter Details Date Type Department Care Team (Late st Contact Info) Description 11/07/2023 Orders Only [facility] XRay [address] [place] [address] Adi Suazo MD [address] [place] [address] Social History Tobacco Use Types Packs/Day Years [...] Info) Description 09/03/2024 9:30 AM EDT Follow-Up [facility] Liver Transplant Services [address] [place] [address] Joycelyn Becerra MD [address] [place] [address] 09/03/2024 10:00 AM EDT Nutrition [facility] Liver Transplant Services [address] [place] [address] Joycelyn Becerra MD [address] [place] [address] [facility] NUTRITION [place], [place] 10/16/2024 8:30 AM EDT Office Visit [facility] Building Neurology Clinic [address] [place] [address] Carin Starkey MD [address] [place] [address] documented as of this encounter Visit Diagnoses Not on filedocumented in this encounter Care Teams Furnace Caretaker Relationship Specialty Start Date End Date Taylor Zapata [address] [place] [address] PCP - General Internal Medicine 12/01/23 documented as of this encounter
--- OUTSIDE RECORDS SUMMARY | 2024-08-21 08:08 | XMS_ITS | Encounter Summary ---
Author Organization [facility] Address [address] [place] [address] Care Team Providers Care Automated Logistics Specialist Name Role Phone Taylor Zapata Primary Care Provider [phone] Encounter Details Date Type Department Care Team (Late st Contact Info) Description 06/18/2024 Orders Only [facility] ACC Building Mammography 55 [facility], 5th [place] [address] Pablito Taveras MD [address] [place] [address] Social History Tobacco Use Types Packs/Day Years [...] Info) Description 09/03/2024 9:30 AM EDT Follow-Up [facility] Liver Transplant Services [address] [place] [address] Joycelyn Becerra MD [address] [place] [address] 09/03/2024 10:00 AM EDT Nutrition [facility] Liver Transplant Services [address] [place] [address] Joycelyn Becerra MD [address] [place] [address] [facility] NUTRITION [place], [place] 10/16/2024 8:30 AM EDT Office Visit [facility] Building Neurology Clinic [address] [place] [address] Carin Starkey MD [address] [place] [address] documented as of this encounter Visit Diagnoses Not on filedocumented in this encounter Care Teams Automated Logistics Specialist Relationship Specialty Start Date End Date Taylor Zapata [address] [place] [address] PCP - General Internal Medicine 12/01/23 documented as of this encounter
--- OUTSIDE RECORDS SUMMARY | 2024-08-21 08:08 | XMS_ITS | Continuity of Care Document ---
Author Name [facility] Organization [facility] Care Team Providers Care Hand Grinder Name Role Phone [facility] Unavailable Unavailable Medications Combined list of outpatient [...] [facility], 1 ea. BOX Cancele d [id number] : 2023 0 Pharmac y Data Transac tion Service Facilit y ALBUTEROL SULFATE HFA (albuterol sulfate), 90 MCG, HFA AER AD, INHALATION, [employer] 6.7 g CANISTER Cancele d [id number] : 2023 0 Pharmac y Data Transac tion Service Facilit y ALBUTEROL SULFATE HFA (albuterol sulfate), 90 MCG, HFA AER AD, INHALATION, [employer] 6.7 g CANISTER Active [id number] 4 2023 6.7 Pharmac y Data Transac tion Service Facilit y BUPROPION XL (bupropion HCl), 300 MG, TAB ER 24H, ORAL, LUPIN PHARMACEU, 500 ea. BOTTLE Cancele d [id number] : 2023 0 Pharmac y Data Transac tion Service Facilit y BUPROPION XL (bupropion HCl), 300 MG, TAB ER 24H, ORAL, LUPIN PHARMACEU, 500 ea. BOTTLE Active [id number] 2023 90 Pharmac y Data Transac tion Service Facilit y COLESEVELAM HCL (colesevela m HCl), 625 MG, TABLET, ORAL, JAEL PHARMAC, 180 ea. BOTTLE Cancele d [id number] : 2023 0 Pharmac y Data Transac tion Service Facilit y ESOMEPRAZOL E MAGNESIUM (esomeprazo le magnesium), 40 MG, CAPSULE DR, ORAL, AUROBINDO PHARM, 90 ea. BOTTLE Cancele d [id number] : 2023 0 Pharmac y Data Transac tion Service Facilit y ESOMEPRAZOL E MAGNESIUM (esomeprazo le magnesium), 40 MG, CAPSULE DR, ORAL, AUROBINDO PHARM, 90 ea. BOTTLE Active [id number] 2023 90 Pharmac y Data Transac tion Service Facilit y ESOMEPRAZOL E MAGNESIUM (esomeprazo le magnesium), 40 MG, CAPSULE DR, ORAL, AUROBINDO PHARM, 90 ea. BOTTLE Active [id number] 2023 90 Pharmac y Data Transac tion Service Facilit y FLUTICASONE PROPIONATE (FLUTICASON E PROPIONATE) , 50MCG, SPRAY SUSP, NASAL, APOTEX LINDSEY, 16 g AER W/ADAP Cancele d [id number] : 2023 0 Pharmac y Data Transac tion Service Facilit y GABAPENTIN (gabapentin ), 300 MG, CAPSULE, ORAL, XLCARE PHARMACE, 270 ea. BOTTLE Active [id number] 2023 180 Pharmac y Data Transac tion Service Facilit y GALZIN (ZINC ACETATE), 50MG, CAPSULE, ORAL, GATE PHARM, 250 ea. BOTTLE Cancele d [id number] : 2023 0 Pharmac y Data Transac tion Service Facilit y GALZIN (ZINC ACETATE), 50MG, CAPSULE, ORAL, GATE PHARM, 250 ea. BOTTLE Cancele d [id number] : 2023 0 Pharmac y Data Transac tion Service Facilit y GALZIN (ZINC ACETATE), 50MG, CAPSULE, ORAL, GATE PHARM, 250 ea. BOTTLE Cancele d [id number] : 2023 0 Pharmac y Data Transac tion Service Facilit y GALZIN (ZINC ACETATE), 50MG, CAPSULE, ORAL, GATE PHARM, 250 ea. BOTTLE Cancele d [id number] : 2023 0 Pharmac y Data Transac tion Service Facilit y GALZIN (ZINC ACETATE), 50MG, CAPSULE, ORAL, GATE PHARM, 250 ea. BOTTLE Cancele d [id number] : 2023 0 Pharmac y Data Transac tion Service Facilit y ONDANSETRON ODT (ONDANSETRO N), 4 MG, TAB RAPDIS, ORAL, CITRON PHARMA L, 30 ea. BLIST PACK Cancele d [id number] : 2023 0 Pharmac y Data Transac tion Service Facilit y TACROLIMUS (tacrolimus ), 0.5 MG, CAPSULE, ORAL, [employer] 100 ea. BOTTLE Active [id number] 2023 180 Pharmac y Data Transac tion Service Facilit y URSODIOL (URSODIOL), 500 MG, TABLET, ORAL, PAR PHARM., 100 ea. BOTTLE Cancele d [id number] : 2023 0 Pharmac y Data Transac tion Service Facilit y URSODIOL (URSODIOL), 500 MG, TABLET, ORAL, PAR PHARM., 100 ea. BOTTLE Cancele d [id number] : 2023 0 Pharmac y Data Transac tion Service Facilit y URSODIOL (ursodiol), 500 MG, TABLET, ORAL, ZYDUS PHARMACEU, 100 ea. BOTTLE Active [id number] 4 2023 180 Pharmac y Data Transac tion Service Facilit y Immunizations Combined list of available immunizations from the Department of Defense and Veterans Affairs facilities. Immunization Series Date Given Administered By Site Reaction Lot Number CVX Code Drug Guest Service Host Status Comments Source COVID-19, mRNA, LNP-S, PF, 100 mcg or 50 mcg dose 2021 SMABRIAN, Moderna [employer] (MOD) Not Given COVID-19, mRNA, LNP-S, PF, 100 mcg or 50 mcg dose DoD Influenza vaccine, quadrivalent, adjuvanted 2020 NING, () Not Given Influenza vaccine, quadrival ent, adjuvante d DoD Procedures Combined list of: 1) Procedures from Department of Veterans Affairs facilities going back up to thelast 18 months, not all VA non-surgical procedures are included; 2) All procedures from the Department of Defense facilities. Procedure Procedure Type Code Date Perfomer Comments Sourc e No data is provided for this section because a DoD internal system error occurred when retrieving data. A future request for this document may succe fully include data for this section if the system i ue has been resolved. [facility] Social History Combined list of available smoking, tobacco, and other social history from Department of Defense and Veterans Affairs facilities. Social History Type Response Date Comment Sourc e This section is an empty social history section. [facility]
--- OUTSIDE RECORDS SUMMARY | 2024-08-21 08:08 | XMS_ITS | Clinical Summary ---
Author Organization [facility] Address [address] [place] [address] Care Team Providers Care [employer] Artistic Director Name Role Phone JodiTaylor Primary Care Provider [phone] Allergies Active Allergy Reactions Criticality Noted Date [...] Type Department Care Team Description 07/25/2024 Refill [facility] [address] [place] [address] Joycelyn Becerra MD 07/18/2024 Orders Only [facility] [address] [place] [address] Ida Coon RN History of liver transplant (HCC) (Primary Dx); Encounter for immunosuppression management after liver transplant (HCC) 07/03/2024 Orders Only [facility] [address] [place] [address] Joycelyn Becerra MD 07/01/2024 myChart Message [facility] [address] [place] [address] Scan 06/18/2024 11:00 AM EDT Nutrition [facility] [address] [place] [address] Liver replaced by transplant (Primary Dx) 06/18/2024 10:30 AM EDT Follow-Up [facility] [address] [place] [address] Joycelyn Becerra MD Cirrhosis of liver with ascites, unspecified hepatic cirrhosis type (Primary Dx); Tremor; History of liver transplant; Primary biliary cholangitis 06/18/2024 Orders Only [facility] Building [address], 5th floor [facility] [place] [address] Pablito Taveras MD from Last 3 Months [...] Info) Description 09/03/2024 9:30 AM EDT Follow-Up [facility] [address] [place] [address] Joycelyn Becerra MD [address] [place] [address] 09/03/2024 10:00 AM EDT Nutrition [facility] [address] [place] [address] Joycelyn Becerra MD [address] [place] [address] [facility] [place] 10/16/2024 8:30 AM EDT Office Visit [facility] Building Neurology Clinic [address] [place] [address] Carin Starkey MD [address] [place] [address] Health Maintenance Due Date Last Done Comments [...] Name Priority Date/Time Associated Diagnosis Comments DIFFERENTIAL,MANUAL- [id number] Routine 06/12/2024 10:01 AM EDT TACROLIMUS LEVEL [...] - 7,800 cells/uL 06/12/2024 10:47 PM EDT [facility] Absolute Band Neutrophils 71 0 - 750 cells/uL 06/12/2024 10:47 PM EDT [facility] Absolute Metamyelocytes 37(H) 0 cells/uL 06/12/2024 10:47 PM EDT [facility] Absolute Lymphocytes 680(L) 850 - 3,900 cells/uL 06/12/2024 10:47 PM EDT [facility] Absolute Monocytes 394 200 - 950 cells/uL 06/12/2024 10:47 PM EDT [facility] Absolute Eosinophils 109 15 - 500 cells/uL 06/12/2024 10:47 PM EDT [facility] Absolute Basophils 34 0 - 200 cells/uL 06/12/2024 10:47 PM EDT [facility] Neutrophils 61.0 % 06/12/2024 10:47 PM EDT [facility] Band Neutrophils 2.1 % 06/13/19 10:47 PM EDT [facility] Metamyelocytes 1.1(H) % 06/12/2024 10:47 PM EDT [facility] Lymphocytes 20.0 % 06/12/2024 10:47 PM EDT [facility] Monocytes 11.6 % 06/12/2024 10:47 PM EDT [facility] Eosinophils 3.2 % 06/12/2024 10:47 PM EDT [facility] Basophils 1.0 % 06/12/2024 10:47 PM EDT [facility] Platelet Estimation DECREASED(A ) ADEQUATE 06/12/2024 10:47 PM EDT [facility] Note See Comments 06/12/2024 10:47 PM EDT [facility] Comment: Although an automated CBC [...] ORDERABLES Final Resul t [facility] [address], [place] [address], [place] [phone] [facility] [address] [place] [address] * (ABNORMAL) CBC Auto Differential (06/12/2024 10:01 AM EDT) White Blood Cell Count 3.4(L) 3.8 - 10.8 Thousand/ uL 06/12/2024 10:47 PM EDT [facility] Red Blood Cell Count 3.73(L) 3.80 - 5.10 Million/u L 06/12/2024 10:47 PM EDT [facility] Hemoglobin 10.7(L) 11.7 - 15.5 g/dL 06/12/2024 10:47 PM EDT [facility] Hematocrit 33.3(L) 35.0 - 45.0 % 06/12/2024 10:47 PM EDT [facility] MCV 89.3 80.0 - 100.0 fL 06/12/2024 10:47 PM EDT [facility] MCH 28.7 27.0 - 33.0 pg 06/12/2024 10:47 PM EDT [facility] MCHC 32.1 32.0 - 36.0 g/dL 06/12/2024 10:47 PM EDT [facility] Comment: For adults, a slight decrease in the calculated MCHC value (in the range of 30 to 32 g/dL) is most likely not clinically significant; however, it should be interpreted with caution in correlation with other red cell parameters and the patient's clinical condition. RDW 15.8(H) 11.0 - 15.0 % 06/12/2024 10:47 PM EDT [facility] Platelet Count 83(L) 140 - 400 Thousand/ uL 06/12/2024 10:47 PM EDT [facility] MPV 11.5 7.5 - 12.5 fL 06/12/2024 10:47 PM EDT [facility] Blood Structure of peripheral vein / Unknown 06/12/2024 10:01 AM EDT 06/12/2024 8:56 PM EDT Narrative [facility] - 06/13/2024 12:57 AM EDT FASTING:YES ?? CONTACT HISTORY: DATE ?TIME ? CONTACT 06/13/2024 ?12:50 AM ? TEST NAME ?ACTION TAKEN ?DO NOT NOTIFY CLIENT WHEN RESULTS RELEASED us Joycelyn Becerra MD LAB BLOOD ORDERABLES Final Resul t [facility] [address], [place] [address], [place] [phone] [employer] [facility] [address] [place] [address] * (ABNORMAL) Tacrolimus level (06/12/2024 10:01 AM EDT) Pathologist [facility] Tacrolimus, Highly Sensitive 4.6(L) mcg/L 06/13/2024 12:50 AM EDT [facility] Comment: No definitive therapeutic or toxic ranges have been established. Optimal blood drug levels are influenced by type of transplant, patient response, time post- transplant, co-administration of other drugs, and drug formulation. The following trough range is a suggested guideline: 5.0-20.0 mcg/L. This test was developed and its analytical performance characteristics have been determined by [employer]. It has not been cleared or approved [...] ORDERABLES Final Resul t [facility] [address], [place] [address], [facility] [address] [place] [address] * Magnesium (06/12/2024 10:01 AM EDT) [facility] Magnesium 2.0 1.5 - 2.5 mg/dL 06/12/2024 11:32 PM EDT [facility] Blood Structure of peripheral vein / Unknown 06/12/2024 10:01 AM EDT 06/12/2024 9:50 PM EDT Narrative [facility] - 06/13/2024 12:57 AM EDT FASTING:YES ?? CONTACT HISTORY: DATE ?TIME ? CONTACT 06/13/2024 ?12:50 AM ? TEST NAME ?ACTION TAKEN ?DO NOT NOTIFY CLIENT WHEN RESULTS RELEASED us Joycelyn Becerra MD LAB BLOOD ORDERABLES Final Resul t [facility] [address], [place] [address], [employer] [facility] [address] [place] [address] * (ABNORMAL) Comprehensive Metabolic Panel (06/12/2024 10:01 AM EDT) Glucose 91 65 - 99 mg/dL 06/12/2024 11:32 PM EDT [employer] [facility] Comment: ? Fasting reference interval BUN 26(H) 7 - 25 mg/dL 06/12/2024 11:32 PM EDT [facility] Creatinine 1.15(H) 0.50 - 1.05 mg/dL 06/12/2024 11:32 PM EDT [facility] eGFR 52(L) > OR = 60 mL/min/1. 73m2 06/12/2024 11:32 PM EDT [facility] [place] Orders Bun/Creatinine Ratio 23(H) 6 - 22 (calc) 06/12/2024 11:32 PM EDT [facility] Sodium 138 135 - 146 mmol/L 06/12/2024 11:32 PM [facility] Potassium 4.8 3.5 - 5.3 mmol/L 06/12/2024 11:32 PM [facility] Chloride 110 98 - 110 mmol/L 06/12/2024 11:32 PM [facility] Carbon Dioxide 24 20 - 32 mmol/L 06/12/2024 11:32 PM [facility] Calcium 8.4(L) 8.6 - 10.4 mg/dL 06/12/2024 11:32 PM [facility] Protein, Total 6.7 6.1 - 8.1 g/dL 06/12/2024 11:32 PM [facility] Albumin 3.5(L) 3.6 - 5.1 g/dL 06/12/2024 11:32 PM [facility] Globulin 3.2 1.9 - 3.7 g/dL (calc) 06/12/2024 11:32 PM [facility] Albumin/Globuli n Ratio 1.1 1.0 - 2.5 (calc) 06/12/2024 11:32 PM [facility] Bilirubin, Total 1.1 0.2 - 1.2 mg/dL 06/12/2024 11:32 PM [employer] [facility] Alkaline Phosphatase 105 37 - 153 U/L 06/12/2024 11:32 PM [employer] [facility] AST 24 10 - 35 U/L 06/12/2024 11:32 PM [employer] [facility] ALT 21 6 - 29 U/L 06/12/2024 11:32 PM [employer] [facility] Blood Structure of peripheral vein / Unknown 06/12/2024 10:01 AM EDT 06/12/2024 9:50 PM EDT Narrative [facility] - 06/13/2024 12:57 AM EDT FASTING:YES ?? CONTACT HISTORY: DATE ?TIME ? CONTACT 06/13/2024 ?12:50 AM ? TEST NAME ?ACTION TAKEN ?DO NOT NOTIFY CLIENT WHEN RESULTS RELEASED Joycelyn Becerra MD LAB BLOOD ORDERABLES Final Resul t [facility] [address], [place] [address], [place] [phone] [facility] [address] [place] [address] from Last 3 Months Insurance Locality MEDICARE MEDICARE [facility] Advance Directives Documents on File Type Date Recorded Patient Emergency Medical Dispatcher Expl [facility] Health Care Proxy 11/21/2023 2:03 PM 06-19 * Full Code (Latest Code Status on File) Date Activated Date Inactivated Comments 02/22/2024 5:17 PM 02/22/2024 7:43 PM * Full Code Date Activated Date Inactivated Comments 02/22/2024 2:16 PM 02/22/2024 5:17 PM Care Teams [employer] Artistic Director Relationship Specialty Start Date End Date Taylor Zapata [address] [place] [phone] PCP - General Internal Medicine 12/01/23
--- OUTSIDE RECORDS SUMMARY | 2024-08-21 08:08 | XMS_ITS | Encounter Summary ---
Author Organization [facility] Address [address] [place] [address] Care Team Providers Care Tug Boat Engineer Name Role Phone Taylor Zapata Primary Care Provider [phone] Encounter Details Date Type Department Care Team (Late st Contact Info) Description 01/02/2024 Orders Only [facility] Interventional Radiology [address] [place] [address] Vanessa Comer PA [address] [place] [address] Social History Tobacco Use Types Packs/Day Years [...] Info) Description 09/03/2024 9:30 AM EDT Follow-Up [facility] Transplant Services [address] [place] [address] Joycelyn Becerra MD [address] [place] [address] 09/03/2024 10:00 AM EDT Nutrition [facility] Transplant Services [address] [place] [address] Joycelyn Becerra MD [address] [place] [address] [facility] [place], [place] 10/16/2024 8:30 AM EDT Office Visit [facility] Building Neurology Clinic [address] [place] [address] Carin Starkey MD [address] [place] [address] documented as of this encounter Visit Diagnoses Not on filedocumented in this encounter Care Teams Tug Boat Engineer Relationship Specialty Start Date End Date Taylor Zapata [address] [place] [address] PCP - General Internal Medicine 12/01/23 documented as of this encounter
--- OUTSIDE RECORDS SUMMARY | 2024-08-21 08:08 | XMS_ITS ---
Author Organization [facility] Address [address] [place] [address] Care Team Providers Care Home Health Caregiver Name Role Phone Tayolr Zapata Primary Care Provider [phone] Transplant Episode Liver Recipient [facility] ([place], [place]) - [facility] Transplanted on 09/30/2015 Marked as Active Follow-up on 09/30/2015 Liver CoordinatorIda Coon RN Phone: N/A Fax: N/A Email: N/A Transplanted Elsewhere: [facility] ([place], [place]) - [facility] Coordinator: Phone: Fax: [facility] [place] Organ Diagnosis Organ Primary Contributory Liver Primary Biliary Cirrhosis (PBC) Care Team Name Role Phone Fax Email Ida Coon RN Liver Coordinator N/A N/A N/A Events Post-Transplant Pre-Transplant Transplanted: 09/30/2015 Appointments (07/22/2024 - 09/21/2024) When With Visit Type Description 09/03/2024 Transplant - Lukas Galloway Follow Up 09/03/2024 Transplant - Lukas Becerra Follow Up
--- OUTSIDE RECORDS SUMMARY | 2024-08-21 08:08 | XMS_ITS | Referral Summary ---
Author Organization [facility] Address [address] [place] [address] Care Team Providers Care Malter Operator Name Role Phone Taylor Zapata Primary Care Provider [phone] Encounters Date Type Department Care Team Description 07/25/2024 Refill [facility] Liver Transplant Services [address] [place] [address] Joycelyn Becerra MD 07/18/2024 Orders Only [facility] Transplant Department [address] [place] [phone] Ida Coon RN History of liver transplant (HCC) (Primary Dx); Encounter for immunosuppression management after liver transplant (HCC) 07/03/2024 Orders Only [facility] Transplant Department [address] [place] [phone] Joycelyn Becerra MD 07/01/2024 myChart Message [facility] Liver Transplant Services [address] [place] [address] [phone] Scan 06/18/2024 Orders Only [facility] ACC Building Mammography [address] [place] [address] 5th [place] [address] Pablito Taveras MD 06/18/2024 11:00 AM EDT Nutrition [facility] Renal Transplant [address] [place] [address] Liver replaced by transplant (Primary Dx) 06/18/2024 10:30 AM EDT Follow-Up [facility] Liver Transplant Services [address] [place] [address] Joycelyn Becerra MD Cirrhosis of liver with [...] Info) Description 09/03/2024 9:30 AM EDT Follow-Up [facility] Liver Transplant Services [address] [place] [phone] Joycelyn Becerra MD [address] [place] [phone] 09/03/2024 10:00 AM EDT Nutrition [facility] Liver Transplant Services [address] [place] [phone] Joycelyn Becerra MD [address] [place] [phone] [facility] [place] 10/16/2024 8:30 AM EDT Office Visit [facility] [address] [place] [phone] Carin Starkey MD [address] [place] [phone] Procedures * Due to [place] state law, this organization might not be sharing negative HIV tests. Procedure Name Priority Date/Time Associated Diagnosis Comments DIFFERENTIAL,MANUAL- [id number] Routine 06/12/2024 10:01 AM EDT TACROLIMUS LEVEL [...] Last 3 Months Results * Due to [place] state law, this organization might not be sharing negative HIV tests. * (ABNORMAL) Differential, Manual (06/12/2024 10:01 AM EDT) Absolute Neutrophils 2,074 1,500 - 7,800 cells/uL 06/12/2024 10:47 PM EDT [facility] Absolute Band Neutrophils 71 0 - 750 cells/uL 06/12/2024 10:47 PM EDT [facility] Absolute Metamyelocytes 37(H) 0 cells/uL 06/12/2024 10:47 PM EDT [facility] Absolute Lymphocytes 680(L) 850 - 3,900 cells/uL 06/12/2024 10:47 PM EDT [facility] Absolute Monocytes 394 200 - 950 cells/uL 06/12/2024 10:47 PM EDT [facility] Absolute Eosinophils 109 15 - 500 cells/uL 06/12/2024 10:47 PM EDT [facility] Absolute Basophils 34 0 - 200 cells/uL 06/12/2024 10:47 PM EDT [facility] Neutrophils 61.0 % 06/12/2024 10:47 PM EDT [facility] Band Neutrophils 2.1 % 06/13/19 25 10:47 PM EDT [facility] Metamyelocytes 1.1(H) % 06/12/2024 10:47 PM EDT [facility] Lymphocytes 20.0 % 06/12/2024 10:47 PM EDT [facility] Monocytes 11.6 % 06/12/2024 10:47 PM EDT [facility] Eosinophils 3.2 % 06/12/2024 10:47 PM EDT [facility] Basophils 1.0 % 06/12/2024 10:47 PM EDT [facility] Platelet Estimation DECREASED(A ) ADEQUATE 06/12/2024 10:47 PM EDT [facility] Note See Comments 06/12/2024 10:47 PM EDT [facility] Comment: Although an automated CBC was [...] ORDERABLES Final Resul t [facility] [address] [facility] [address], [place] [address], [facility] [address] [place] [address] * (ABNORMAL) CBC Auto Differential (06/12/2024 10:01 AM EDT) [facility] White Blood Cell Count 3.4(L) 3.8 - 10.8 Thousand/ uL 06/12/2024 10:47 PM EDT [facility] Red Blood Cell Count 3.73(L) 3.80 - 5.10 Million/u L 06/12/2024 10:47 PM EDT [facility] Hemoglobin 10.7(L) 11.7 - 15.5 g/dL 06/12/2024 10:47 PM EDT [facility] Hematocrit 33.3(L) 35.0 - 45.0 % 06/12/2024 10:47 PM [facility] MCV 89.3 80.0 - 100.0 fL 06/12/2024 10:47 PM [facility] MCH 28.7 27.0 - 33.0 pg 06/12/2024 10:47 PM [facility] MCHC 32.1 32.0 - 36.0 g/dL 06/12/2024 10:47 PM [facility] Comment: For adults, a slight decrease in the calculated MCHC value (in the range of 30 to 32 g/dL) is most likely not clinically significant; however, it should be interpreted with caution in correlation with other red cell parameters and the patient's clinical condition. RDW 15.8(H) 11.0 - 15.0 % 06/12/2024 10:47 PM [facility] Platelet Count 83(L) 140 - 400 Thousand/ uL 06/12/2024 10:47 PM [facility] MPV 11.5 7.5 - 12.5 fL 06/12/2024 10:47 PM [facility] Blood Structure of peripheral vein / Unknown 06/12/2024 10:01 AM EDT 06/12/2024 8:56 PM EDT Narrative [facility] AMBULATORY - 06/13/2024 12:57 AM EDT FASTING:YES ?? CONTACT HISTORY: DATE ?TIME ? CONTACT 06/13/2024 ?12:50 AM ? TEST NAME ?ACTION TAKEN ?DO NOT NOTIFY CLIENT WHEN RESULTS RELEASED Joycelyn Becerra MD LAB BLOOD ORDERABLES Final Resul t Performing Organization Address [facility] Co de Phone Number [facility] [address] [facility] [address], [place] [address], [place] [phone] [facility] [address] [place] [address] * (ABNORMAL) Tacrolimus level (06/12/2024 10:01 AM EDT) Tacrolimus, Highly Sensitive 4.6(L) mcg/L 06/13/2024 12:50 AM EDT [facility] Comment: No definitive therapeutic or toxic ranges have been established. Optimal blood drug levels are influenced by type of transplant, patient response, time post- transplant, co-administration of other drugs, and drug formulation. The following trough range is a suggested guideline: 5.0-20.0 mcg/L. This test was developed and its analytical performance characteristics have been determined by [employer]. It has not been cleared or approved [...] ORDERABLES Final Resul t Performing Organization Address City/[facility]/ZIP Co de Phone Number [facility] [address], [place] [address], [facility] [address] [place] [address] * Magnesium (06/12/2024 10:01 AM EDT) Pathologist [facility] Magnesium 2.0 1.5 - 2.5 mg/dL 06/12/2024 11:32 PM EDT [facility] Blood Structure of peripheral vein / Unknown 06/12/2024 10:01 AM EDT 06/12/2024 9:50 PM EDT Narrative [facility] AMBULATORY - 06/13/2024 12:57 AM EDT FASTING:YES ?? CONTACT HISTORY: DATE ?TIME ? CONTACT 06/13/2024 ?12:50 AM ? TEST NAME ?ACTION TAKEN ?DO NOT NOTIFY CLIENT WHEN RESULTS RELEASED us Joycelyn Becerra MD LAB BLOOD ORDERABLES Final Resul t [facility] [address], [place] [address], [facility] [address] [place] [address] * (ABNORMAL) Comprehensive Metabolic Panel (06/12/2024 10:01 AM EDT) Glucose 91 65 - 99 mg/dL 06/12/2024 11:32 PM EDT [facility] Comment: ? Fasting reference interval BUN 26(H) 7 - 25 mg/dL 06/12/2024 11:32 PM EDT [facility] Creatinine 1.15(H) 0.50 - 1.05 mg/dL 06/12/2024 11:32 PM [facility] eGFR 52(L) > OR = 60 mL/min/1. 73m2 06/12/2024 11:32 PM [facility] Bun/Creatinine Ratio 23(H) 6 - 22 (calc) 06/12/2024 11:32 PM [facility] Sodium 138 135 - 146 mmol/L 06/12/2024 11:32 PM [facility] Potassium 4.8 3.5 - 5.3 mmol/L 06/12/2024 11:32 PM [facility] Chloride 110 98 - 110 mmol/L 06/12/2024 11:32 PM [facility] Carbon Dioxide 24 20 - 32 mmol/L 06/12/2024 11:32 PM [facility] Calcium 8.4(L) 8.6 - 10.4 mg/dL 06/12/2024 11:32 PM [facility] Protein, Total 6.7 6.1 - 8.1 g/dL 06/12/2024 11:32 PM [facility] Albumin 3.5(L) 3.6 - 5.1 g/dL 06/12/2024 11:32 PM [facility] Globulin 3.2 1.9 - 3.7 g/dL (calc) 06/12/2024 11:32 PM [facility] Albumin/Globuli n Ratio 1.1 1.0 - 2.5 (calc) 06/12/2024 11:32 PM [facility] Bilirubin, Total 1.1 0.2 - 1.2 mg/dL 06/12/2024 11:32 PM [facility] Alkaline Phosphatase 105 37 - 153 U/L 06/12/2024 11:32 PM [facility] AST 24 10 - 35 U/L 06/12/2024 11:32 PM [facility] ALT 21 6 - 29 U/L 06/12/2024 11:32 PM [facility] Blood Structure of peripheral vein / Unknown 06/12/2024 10:01 AM EDT 06/12/2024 9:50 PM EDT Narrative [facility] - 06/13/2024 12:57 AM EDT FASTING:YES ?? CONTACT HISTORY: DATE ?TIME ? CONTACT 06/13/2024 ?12:50 AM ? TEST NAME ?ACTION TAKEN ?DO NOT NOTIFY CLIENT WHEN RESULTS RELEASED us Joycelyn Becerra MD LAB BLOOD ORDERABLES Final Resul t [facility] [address] [facility] [address], [place] [address], [facility] [address] [place] [address] from Last 3 Months Insurance [email or web address] MEDICARE MEDICARE FOR LIFE Advance Directives Documents on File Type Date Recorded Patient Video Intern Expl [facility] Health Care Proxy 11/21/2023 2:03 PM 06-19 * Full Code (Latest Code Status on File) Date Activated Date Inactivated Comments 02/22/2024 5:17 PM 02/22/2024 7:43 PM * Full Code Date Activated Date Inactivated Comments 02/22/2024 2:16 PM 02/22/2024 5:17 PM Care Teams Malter Operator Relationship Specialty Start Date End Date Taylor Zapata 1962 [place] [address] PCP - General Internal Medicine 12/01/23
[2024-08-21] MEDS: iohexoL 350 MG/ML 100 ML INFUS..BTL IV (09:13)
[2024-08-21 17:15] LABS: Creatinine POC 1.1 mg/dL (0.5-1.4); GFR POC 50
== END 2024-08-21 08:06 | disposition home or self-care (01) ==
LOC: HO.CT 08:05
PROVIDERS: PCP Internal Medicine; Visit Provider Internal Medicine Gastroenterology
DX: K74.60 Unspecified cirrhosis of liver (principal); R18.8 Other ascites
CPT/HCPCS: 74177; 82565; Q9967

== ENCOUNTER → 2024-08-21 08:08 | Outpatient (BNV) | payer MEDICARE, OTHER, SELFPAY | PROVIDERS: PCP Internal Medicine; Visit Provider Radiology Diagnostic Radiology | DX: K74.60 Unspecified cirrhosis of liver (principal); K56.41 Fecal impaction; R16.1 Splenomegaly, not elsewhere classified; J90 Pleural effusion, not elsewhere classified; R18.8 Other ascites | CPT/HCPCS: 74177 ==

== ENCOUNTER → 2024-09-10 07:40 | Outpatient (REF) | payer MEDICARE, OTHER, SELFPAY ==
--- NOTE | ~2024-09-10 | NM_ITS ---
EXAMINATION: RI RADIONUCLIDE SOLID FOOD GASTRIC EMPTYING 4-HOUR STUDY CLINICAL INFORMATION: R68.81 - Early satiety COMPARISON: There are no prior studies available for comparison. TECHNIQUE: A standard meal consisting of 4 oz of Egg Beaters brand tagged with 0.9 mCi Tc-99m Sulfur Colloid, 6 oz water and 2 slices of toast with jelly was administered orally to the patient. Images were obtained using a dual head gamma camera in the anterior and posterior projections over of the stomach immediately post ingestion and at hourly intervals up to 4 hours post ingestion. The anterior and posterior counts at each time interval were averaged using the geometric mean and expressed as percentage of the immediate post ingestion counts. FINDINGS: There is visualization of activity in the stomach immediately post ingestion. As the study progresses, there is clearance of activity from the stomach and visualization of progressively increasing small bowel activity. By the end of the study, there is almost no retention noted in the stomach. Retention in the stomach at each time interval was: 1 hour 74% (normal 37%-90%) 2 hours 56% (normal 30%-60%) 3 hours 26% 4 hours 14% (normal 0%-10%) RI/RI gastric emptying study IMPRESSION: Mildly delayed gastric emptying. For solid meal, rapid gastric emptying is less than 30% at 60 minutes. Delayed gastric emptying criteria is more than 60% remaining at 120 minutes or more than 10% at 240 minutes. The 4-hour value is the best discriminator of a normal or abnormal result). Gastric emptying study grading per JNMT Consensus Recommendations in 2008 (https://tech.snmjournals.org/content/36/1/44) Grade 1 (mild retention): 11-20% at 4h Grade 2 (moderate retention): 21-35% at 4h Grade 3 (severe retention): 36-50% at 4h Grade 4 (very severe retention): >50% retention at 4h Electronically signed by: Howard Palomo MD 09/10/2024 01:25 PM EDT
== END ==
LOC: HO.NUCMED 07:40
PROVIDERS: PCP Internal Medicine; Visit Provider Internal Medicine Gastroenterology
DX: R68.81 Early satiety (principal)
CPT/HCPCS: 78264; A9541

== ENCOUNTER → 2024-09-10 07:43 | Outpatient (BNV) | payer MEDICARE, OTHER, SELFPAY | PROVIDERS: PCP Internal Medicine; Visit Provider Radiology Diagnostic Radiology | DX: R68.81 Early satiety (principal) | CPT/HCPCS: 78264 ==

== ENCOUNTER 2024-09-29 13:05 | Outpatient (REF) | payer MEDICARE, OTHER, SELFPAY ==
--- NOTE | ~2024-09-29 | XR_ITS ---
CLINICAL HISTORY: J90 - Pleural effusion, not elsewhere classified 1 view chest Comparison: None Findings: Low inspiration. Resultant mild vascular crowding centrally with subsegmental atelectasis. Mild interstitial thickening. Retrocardiac atelectasis versus infiltrate. Small left pleural effusion. Heart size difficult to assess.Passive venous congestion. No acute fractures. Impression: 1. Low inspiration with central vascular crowding and subsegmental atelectasis. 2. Suspect passive venous congestion with interstitial thickening and retrocardiac atelectasis versus infiltrate. Small left pleural effusion. This document has been electronically signed by: Kennedy Muhammad MD on 09/30/2024 11:56:12
--- OUTSIDE RECORDS SUMMARY | 2024-09-29 13:31 | XMS_ITS | Continuity of Care Document ---
Author Name [facility] Organization [facility] Care Team Providers Care Health Outreach Worker Name Role Phone [facility] Unavailable Unavailable Medications Combined list of outpatient medications from Department of Defense and Veterans Affairs facilities.Medications provided include 1) outpatient medications from the last 15 months, and 2) patient-reported medications. Medication Details Route Status Patient Instructions Prescription Expires Prescription Number Last Dispense Date Ordering Provider Order Date Order Qty Source BUPROPION XL (bupropion HCl), 300 MG, TAB ER 24H, ORAL, LUPIN PHARMACEU, 500 ea. BOTTLE Cancele d [id number] : 2023 0 Pharmac y Data Transac tion Service Facilit y BUPROPION XL (bupropion HCl), 300 MG, TAB ER 24H, ORAL, LUPIN PHARMACEU, 500 ea. BOTTLE Active [id number] 2023 90 Pharmac y Data Transac tion Service Facilit y ESOMEPRAZOL E MAGNESIUM (esomeprazo le magnesium), 40 MG, CAPSULE DR, ORAL, AUROBINDO PHARM, 90 ea. BOTTLE Cancele d [id number] : 2023 0 Pharmac y Data Transac tion Service Facilit y FLUTICASONE PROPIONATE (FLUTICASON E PROPIONATE) , 50MCG, SPRAY SUSP, NASAL, APOTEX LINDSEY, 16 g AER W/ADAP Cancele d [id number] : 2023 0 Pharmac y Data Transac tion Service Facilit y GABAPENTIN (gabapentin ), 300 MG, CAPSULE, ORAL, XLCARE PHARMACE, 270 ea. BOTTLE Active [id number] 4 2023 180 Pharmac y Data Transac tion Service Facilit y GALZIN (ZINC ACETATE), 50MG, CAPSULE, ORAL, GATE PHARM, 250 ea. BOTTLE Cancele d [id number] : 2023 0 Pharmac y Data Transac tion Service Facilit y GALZIN (ZINC ACETATE), 50MG, CAPSULE, ORAL, GATE PHARM, 250 ea. BOTTLE Cancele d [id number] : 2023 0 Pharmac y Data Transac tion Service Facilit y GALZIN (ZINC ACETATE), 50MG, CAPSULE, ORAL, GATE PHARM, 250 ea. BOTTLE Cancele d [id number] : 2023 0 Pharmac y Data Transac tion Service Facilit y GALZIN (ZINC ACETATE), 50MG, CAPSULE, ORAL, GATE PHARM, 250 ea. BOTTLE Cancele d [id number] : 2023 0 Pharmac y Data Transac tion Service Facilit y TACROLIMUS (tacrolimus ), 0.5 MG, CAPSULE, ORAL, [employer] 100 ea. BOTTLE Active [id number] 2023 180 Pharmac y Data Transac tion Service Facilit y URSODIOL (URSODIOL), 500 MG, TABLET, ORAL, PAR PHARM., 100 ea. BOTTLE Cancele d [id number] : 2023 0 Pharmac y Data Transac tion Service Facilit y URSODIOL (URSODIOL), 500 MG, TABLET, ORAL, PAR PHARM., 100 ea. BOTTLE Cancele d [id number] : 2023 0 Pharmac y Data Transac tion Service Facilit y URSODIOL (ursodiol), 500 MG, TABLET, ORAL, ZYDUS PHARMACEU, 100 ea. BOTTLE Active [id number] 4 2023 180 Pharmac y Data Transac tion Service Facilit y Immunizations Combined list of available immunizations from the Department of Defense and Veterans Affairs facilities. Immunization Series Date Given Administered By Site Reaction Lot Number CVX Code Drug Churn Tender Status Comments Source COVID-19, mRNA, LNP-S, PF, 100 mcg or 50 mcg dose 2021 SMAILI, [employer] (MOD) Not Given COVID-19, mRNA, LNP-S, [...]
== END 2024-09-29 13:06 | disposition home or self-care (01) ==
LOC: HO.XRAY 13:05
PROVIDERS: PCP Internal Medicine; Visit Provider Internal Medicine
DX: J90 Pleural effusion, not elsewhere classified (principal)
CPT/HCPCS: 71045

== ENCOUNTER 2024-10-13 13:47 | Outpatient (AMB) | payer MEDICARE, OTHER, SELFPAY ==
--- NOTE | 2024-10-13 14:00 | A.OFFVIS_ITS ---
Vital Signs 10/13/24 14:04 Height 4 ft 11 in Weight 105 lb 13.15 oz BMI 21.4 BP 133/73 Blood Pressure Location Lt brachial Position Sitting Pulse 97 Intake Visit Reasons: f/u left effusion Intake Note: Praveena presents in the office as a follow up for left effusion. CC: Recently was seen in the ED and needed a left effusion. 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 CTe suggested focal ileitis but capsule endoscopy was negative. Meantime Karen had reduced tacrolimus dose and I gave her colvesalam which helped her diarrhea a lot In the interim she was noted to have ascites and had been c/o LUQ pain for 1 year which was worse with food and position as well as breathing and coughing. Ascitic tap was arranged with 1.4 L removed. Studies revealed SAAG 1.8 and pos cell count for SBP with culture neg samples. She had no fever so she was given PO cipro but repeat labs revealed rising CRP and she had ongoing sx she was advised to come in for further treatment. Labs: WCC of 3.9, hemoglobin of 10.5, hematocrit of 32.8, INR of 1.2, CRP of 5.58, total bili of 1.4, AST of 40, alk-phos of 187, ALT of 27, albumin of 3.4. UA shows leukocyte Estrace Abdomen pelvic CT: no acute intra-abdominal process, cirrhosis and evidence of portal hypertension with splenomegaly and moderate volume ascites, small right pleural effusion She has been given albumin and IV rocephin Repeat labs with increasing CRP and increasing WCC in ascitic fluid despite meropenam use. cultures for bacteria, fungi and TB were negative, ID recommended stopping antibiotics. I suspected maybe she had worsening ileitis which may have been causing the ascitic fluid findings and high CRP, so she had CTe which was unrevealing. changed to flagyl anf d/c'ed on budesonide Stool PCR GI panel and c diff were negative she was admitted with cough and sputum 03/2022 Imaging revealed right sided pleural effusion, and moderate ascites. Paracentesis revealed possible SBP with pos cell count 365 but this has actually improved from before. She has been taking budesonide as well for possible enteritis, as previous raised ascitic cell count thought to be due to possible enteritis. Pleural fluid was neg for infection. I applied for entyvio and she got it for short while but then stopped She went to [facility] for second opinion, being reassessed, got aldactone whcih helped her ascites! EGD 02/23- no sig varices, gastritis, H plyori pos EGD: 08/24/- varices - small gastritis INTERIM: she had admission for Hyper K and penumonia with pleural fluid needed tapping and now back on diuretics no abdominal pain waiting to see neuro for her tremor, she has weird attacks where she freezes she has bloating and discomfort US at [facility], no masses EXAM: GENERAL: The patient is tremulous, VITAL SIGNS:see workflow HEENT: Nonicteric sclerae, PERRLA, EOMI. Oropharynx clear. Moist mucous membranes. Conjunctivae appear well perfused. No thyroid mass. CHEST: Chest wall is nontender. HEART: Regular rate and rhythm without murmurs. LUNGS: Clear to auscultation bilaterally. ABDOMEN: Soft, positive bowel sounds, tender epigastrium, no organomegaly.no flank tenderness- --scar noted from transplant--superficial veins on abdominal wall SKIN: No rash, + bruising, petechiae, or purpura. NEUROLOGIC: Cranial nerves II-XII intact without motor/sensory deficit. tremor, A/P: 1/ fraility, decompensation related to her liver disease--stable 2/ recurrent ascites, with high SAAG supportive of portal HTN, improved with aldactone and lasix, now resolved 3/ encephalopathy with tremor, slurred speech, blurred, vision --better--maybe PD 4/ nutrition defcn, tashia severe Vit a and b6 defc--on supplements 5/ post prandial pain, ?gastroparesis PLAN: 1/ cont lasix 60 mg and aldactone 100 mg 2/ stop carafate, trial of rifaximin TID for 2 weeks 3/ cont with zinc and other supplements, 4/ varices-- hold on EGD for the moment 5/ f/u [facility] 6/ daughter worried abt recurrence of hydrothorax, advised to check pulse ox, can check breathing as well, if concern can go for CXR, standing order in [facility] Medical History (Updated 10/13/24 @ 14:01 by MIKAYLA Chun) Hx of pleural effusion Pleural effusion Stroke Frequent falls Ascites Anemia CHF (congestive heart failure) Pancytopenia Anxiety HTN (hypertension) Tremor Chronic diarrhea Primary biliary cholangitis Breast cancer Surgical History History of abdominal paracentesis Hx of sigmoidoscopy H/O wrist surgery Transplant recipient Hx of colonoscopy Hx of esophagogastroduodenoscopy H/O: hysterectomy S/P hip replacement Liver transplant recipient Family History Mother CAD (coronary artery disease) Sister Ovarian cancer Mental health disorder Social History Household Members: Spouse Household Members Other:: , children Housing: House Are you a primary resident care assistant to a significant other at home: No Do you presently have visiting nurse or other home services: No Alcohol intake: former Patient Tobacco Use Status: Former Tobacco user Tobacco use type: Cigarette e-Cigarette/Vaping Use: Never Used Second Hand Smoke Exposure: No Advance Directives Date on File: 12/15/22 service: No Current occupational status: retired Cognitive needs: No Hearing needs: No Vision needs: Yes Physical Exam Vital Signs: Last Vital Signs Pulse 97 10/13/24 14:04 BP 133/73 10/13/24 14:04 BMI result Body Mass Index 21.4 Assessment & Plan Assessment & Plan (1) Abdominal ascites: Comment: Due to liver failure, status post liver transplant failure for primary biliary choleangitis Code(s): R18.8 - Other ascites Category: Medical Qualifiers: Ascites type: other type Qualified Code(s): R18.8 - Other ascites Plan: as above Orders: Orders XR chest 2V Today R18.8 - Other ascites Medications: New albuterol sulfate 90 mcg/actuation (Ventolin HFA) 1 inh inhalation QID 6.7 grams 0RF rifaximin 550 mg PO TID 270 tabs 1RF 90 days Coding Level of Care Code Est Pt Level 4 (21442) Diagnoses Other ascites R18.8 Ascites type: other type
[2024-10-13 14:04] VITALS: BP 133/73; PULSE 97; BMI 21.4
--- OUTSIDE RECORDS SUMMARY | 2024-10-13 14:59 | XMS_ITS | Continuity of Care Document ---
Author Name [facility] Organization [facility] Care Team Providers Care Fiber Optics Engineer Name Role Phone [facility] Unavailable Unavailable Medications Combined list of outpatient [...] LUPIN PHARMACEU, 500 ea. BOTTLE Cancele d [id number] 4 [id number] : 2023 0 Pharmac y Data Transac tion Service Facilit y BUPROPION XL (bupropion HCl), 300 MG, TAB ER 24H, ORAL, LUPIN PHARMACEU, 500 ea. BOTTLE Active [id number] 4 2023 90 Pharmac y Data Transac tion Service Facilit y ESOMEPRAZOL E MAGNESIUM (esomeprazo le magnesium), 40 MG, CAPSULE DR, ORAL, AUROBINDO PHARM, 90 ea. BOTTLE Cancele d [id number] : 2023 0 Pharmac y Data Transac tion Service Facilit y FLUTICASONE PROPIONATE (FLUTICASON E PROPIONATE) , 50MCG, SPRAY SUSP, NASAL, APOTEX LINDSEY, 16 g AER W/ADAP Cancele d [id number] 4 [id number] : 2023 0 Pharmac y Data Transac tion Service Facilit y GALZIN (ZINC ACETATE), 50MG, CAPSULE, ORAL, GATE PHARM, 250 ea. BOTTLE Cancele d [id number] : 2023 0 Pharmac y Data Transac tion Service Facilit y GALZIN (ZINC ACETATE), 50MG, CAPSULE, ORAL, GATE PHARM, 250 ea. BOTTLE Cancele d [id number] 4 [id number] : 2023 0 Pharmac y Data Transac tion Service Facilit y GALZIN (ZINC ACETATE), 50MG, CAPSULE, ORAL, GATE PHARM, 250 ea. BOTTLE Cancele d [id number] 4 [id number] : 2023 0 Pharmac y Data Transac tion Service Facilit y GALZIN (ZINC ACETATE), 50MG, CAPSULE, ORAL, GATE PHARM, 250 ea. BOTTLE Cancele d [id number] 4 [id number] : 2023 0 Pharmac y Data Transac tion Service Facilit y TACROLIMUS (tacrolimus ), 0.5 MG, CAPSULE, ORAL, [employer] 100 ea. BOTTLE Active [id number] 4 2023 180 Pharmac y Data Transac tion Service Facilit y URSODIOL (URSODIOL), 500 MG, TABLET, ORAL, PAR PHARM., 100 ea. BOTTLE Cancele d [id number] 4 [id number] : 2023 0 Pharmac y Data Transac tion Service Facilit y URSODIOL (URSODIOL), 500 MG, TABLET, ORAL, PAR PHARM., 100 ea. BOTTLE Cancele d [id number] : 2023 0 Pharmac y Data Transac tion Service Facilit y URSODIOL (ursodiol), 500 MG, TABLET, ORAL, ZYDUS PHARMACEU, 100 ea. BOTTLE Active [id number] 4 2023 180 Pharmac y Data Transac tion Service Facilit y Immunizations Combined list of available immunizations from the Department of Defense and Veterans Affairs facilities. Immunization Series Date Given Administered By Site Reaction Lot Number CVX Code Drug Playground Director Status Comments Source COVID-19, mRNA, LNP-S, PF, 100 mcg or 50 mcg dose 2021 SMABRIAN, Modern[employer] (MOD) Not Given COVID-19, mRNA, LNP-S, PF, 100 mcg or 50 mcg dose DoD Influenza vaccine, quadrivalent, adjuvanted 2020 BOGDASARIAN, () Not Given Influenza vaccine, quadrival ent, adjuvante d DoD Social History Combined list of available smoking, tobacco, and other social history from Department of Defense and Veterans Affairs facilities. Social History Type Response Date Comment Sourc e This section is an empty social history section. DoD
--- OUTSIDE RECORDS SUMMARY | 2024-10-13 15:01 | XMS_ITS | Encounter Summary ---
Author Organization [facility] Address [address] [place] [address] Care Team Providers Care Medical Center Manager Name Role Phone Taylor Zapata Primary Care Provider [phone] Encounter Details Date Type Department Care Team (Late st Contact Info) Description 06/18/2024 Orders Only [address], [address] [place] [address] Pablito Taveras MD [address] [place] [phone] Social History Tobacco Use Types Packs/Day Years [...] Care Team (Late st Contact Info) Description 10/16/2024 8:30 AM EDT Office Visit [facility] [address] [place] [phone] Carin Starkey MD [address] [place] [phone] 01/14/2025 10:30 AM EDT Follow-Up [facility] [address] [place] [phone] Joycelyn Becerra MD [address] [place] [phone] 03/04/2025 11:00 AM EST Nutrition [facility] [address] [place] [phone] Joycelyn Becerra MD [address] [place] [phone] Jacquie Galloway, [facility] [place], [place] documented as of this encounter Visit Diagnoses Not on filedocumented in this encounter Additional Health Concerns Infection Onset Date Last Indicated Resolved Time R/O Respiratory Virus Infection 09/24/2024 09/24/2024 8:00 PM EDT R/O Influenza 09/24/2024 09/24/2024 09/24/2024 8:0 0 PM EDT COVID-19 - Suspected infection 09/24/2024 09/24/2024 09/24/2024 8:00 PM EDT documented as of this encounter Care Teams Medical Center Manager Relationship Specialty Start Date End Date Taylor Zapata [address] [place] [address] PCP - General Internal Medicine 12/01/23 documented as of this encounter
== END 2024-10-13 14:57 | disposition home or self-care (01) ==
LOC: HO.HGI 13:48
PROVIDERS: PCP Internal Medicine; Visit Provider Internal Medicine Gastroenterology
DX: R18.8 Other ascites (principal)
CPT/HCPCS: 99214

== ENCOUNTER → 2024-10-13 13:47 | Outpatient (BNVA) | payer MEDICARE, OTHER, SELFPAY | PROVIDERS: PCP Internal Medicine; Visit Provider Internal Medicine Gastroenterology | DX: R18.8 Other ascites (principal); Z79.899 Other long term (current) drug therapy | CPT/HCPCS: 99212 ==

== ENCOUNTER 2024-11-04 09:56 | Outpatient (AMB) | payer MEDICARE, OTHER, SELFPAY ==
--- OUTSIDE RECORDS SUMMARY | 2024-11-04 09:41 | XMS_ITS | Continuity of Care Document ---
Author Name [facility] Organization [facility] Care Team Providers Care Banana Room Cutter Name Role Phone [facility] Unavailable Unavailable Medications Combined list of outpatient medications from Department of Defense and Veterans Affairs facilities.Medications provided include 1) outpatient medications from the last 15 months, and 2) patient-reported medications. Medication Details Route Status Patient Instructions Prescription Expires Prescription Number Last Dispense Date Ordering Provider Order Date Order Qty Source ESOMEPRAZOL E MAGNESIUM (esomeprazo le magnesium), 40 MG, CAPSULE DR, ORAL, AUROBINDO PHARM, 90 ea. BOTTLE Cancele d [id number] : 2023 0 Pharmac y Data Transac tion Service Facilit y GALZIN (ZINC ACETATE), 50MG, CAPSULE, ORAL, GATE PHARM, 250 ea. BOTTLE Cancele d [id number] 4 [id number] : 2023 0 Pharmac y Data Transac tion Service Facilit y GALZIN (ZINC ACETATE), 50MG, CAPSULE, ORAL, GATE PHARM, 250 ea. BOTTLE Cancele d [id number] 4 [id number] : 2023 0 Pharmac y Data Transac tion Service Facilit y GALZIN (ZINC ACETATE), 50MG, CAPSULE, ORAL, GATE PHARM, 250 ea. BOTTLE Cancele d [id number] 4 [id number] : 2023 0 Pharmac y Data Transac tion Service Facilit y GALZIN (ZINC ACETATE), 50MG, CAPSULE, ORAL, GATE PHARM, 250 ea. BOTTLE Cancele d [id number] 4 [id number] : 2023 0 Pharmac y Data Transac tion Service Facilit y URSODIOL (URSODIOL), 500 MG, TABLET, ORAL, PAR PHARM., 100 ea. BOTTLE Cancele d [id number] 4 [id number] : 2023 0 Pharmac y Data Transac tion Service Facilit y URSODIOL (URSODIOL), 500 MG, TABLET, ORAL, PAR PHARM., 100 ea. BOTTLE Cancele d [id number] 4 [id number] : 2023 0 Pharmac y Data Transac tion Service Facilit y URSODIOL (ursodiol), 500 MG, TABLET, ORAL, ZYDUS PHARMACEU, 100 ea. BOTTLE Active [id number] 4 2023 180 Pharmac y Data Transac tion Service Facilit y Immunizations Combined list of available immunizations from the Department of Defense and Veterans Affairs facilities. Immunization Series Date Given Administered By Site Reaction Lot Number CVX Code Drug Aquarium Tank Attendant Status Comments Source COVID-19, mRNA, LNP-S, PF, 100 mcg or 50 mcg dose 2021 SMABRIAN, [employer] (MOD) Not Given COVID-19, mRNA, LNP-S, PF, 100 mcg or 50 mcg dose [facility] Influenza vaccine, quadrivalent, adjuvanted 2020 NING, () Not Given Influenza vaccine, quadrival ent, adjuvante d [facility] Social History Combined list of available smoking, tobacco, and other social history from Department of Defense and Veterans Affairs facilities. Social History Type Response Date Comment Sour e This section is an empty social history section. [facility]
[2024-11-04 10:00] VITALS: BP 120/68; PULSE 94; RESP 18; TEMP 36.7; O2SAT 95; BMI 22.4
--- NOTE | 2024-11-04 10:00 | A.OFFPC_ITS ---
Vital Signs 11/04/24 10:00 Height 4 ft 11 in Weight 111 lb BMI 22.4 BP 120/68 Blood Pressure Location Lt brachial Position Sitting Respiration 18 Pulse 94 Pulse Source Pulse Oximeter Temp 98.1 F Temp Source Oral Pulse Oximetry (%) 95 Oxygen Delivery Method Room Air Intake Visit Reasons: Hospital follow up Intake Note: Pt is here today for Hospital follow up visit. Allergies hydromorphone (From Dilaudid) Allergy (Severe, Verified 11/04/24 10:04) Hallucinations losartan Allergy (Intermediate, Verified 11/04/24 10:04) Facial Swelling Sulfa (Sulfonamide Antibiotics) Adverse Reaction (Severe, Verified 11/04/24 10:04) Rash Tobacco use date assessed: 11/04/24 Fall risk assessment: 2 + Falls in past year Last assessed Fall Risk: 11/04/24 Dental Screening Dental Screen Date: 11/04/24 Did you have a dental visit in the last 12 months?: Yes Did you have a dental problem in the last 6 months where you did not have access to dental care?: No Was dental information given to patient?: Patient has dentist HPI Hospital follow up HPI Details Patient presents for the follow-up of hospitalization at [facility] on 10/25/2024 after fall was diagnosed with bilateral subdural hematoma and underwent MMA embolization. patient is doing well. She denies headaches but reports poor balance and will be starting home physical therapy. She has been using walker at home to ambulate. She denies any recurrent fall. Patient is established with GI for liver cirrhosis controlled on current medications. [facility] Medical History (Updated 11/04/24 @ 15:51 by Taylor Zapata MD) Hx of pleural effusion Pleural effusion Frequent falls Ascites Anemia CHF (congestive heart failure) Pancytopenia Anxiety HTN (hypertension) Tremor Chronic diarrhea Primary biliary cholangitis Breast cancer Surgical History History of abdominal paracentesis Hx of sigmoidoscopy H/O wrist surgery Transplant recipient Hx of colonoscopy Hx of esophagogastroduodenoscopy H/O: hysterectomy S/P hip replacement Liver transplant recipient Family History Mother CAD (coronary artery disease) Sister Ovarian cancer Mental health disorder Social History (Reviewed 11/04/24 @ 10:12 by CAREY Ho Household Members: Spouse Household Members Other:: , children Housing: House Are you a primary director of managed care to a significant other at home: No Do you presently have visiting nurse or other home services: No Alcohol intake: former Patient Tobacco Use Status: Former Tobacco user Tobacco use type: Cigarette e-Cigarette/Vaping Use: Never Used Second Hand Smoke Exposure: No Advance Directives Date on File: 12/15/22 service: No Current occupational status: retired Cognitive needs: No Hearing needs: No Vision needs: Yes Questionnaire PHQ-9 Over the last 2 weeks, how often have you been bothered by any of the following problems? 1. Little interest or pleasure in doing things: nearly every day 2. Feeling down, depressed, or hopeless: nearly every day 3. Trouble falling or staying asleep, or sleeping too much: several days 4. Feeling tired or having little energy: several days 5. Poor appetite or overeating: several days 6. Feeling bad about yourself - or that you are a failure or have let yourself or your family down: several days 7. Trouble concentrating on things, such as reading the newspaper or watching television: nearly every day 8. Moving or speaking so slowly that other people could have noticed. Or the opposite - being so fidgety or restless that you have been moving around a lot more than usual: nearly every day 9. Thoughts that you would be better off or of hurting yourself in some way: nearly every day Total score: 19 Depression Screening Interpretation: Positive (Established with psychiatrist on citalopram) Depression Screening Follow-up: Existing condition and In treatment Depression Screening Done: Yes 35464 - PHQ-9 Billing: Yes Source: Developed by Drs. Howard Dillon, Shobha Casas, Armando Gaspar and colleagues, with an educational aleah from [employer]. Thrive Questionnaire Date Thrive assessed: 11/04/24 I am a: Patient What is your living situation today?: I have a steady place to live Within the past 12 months, did the food you bought not last and you didn't have the money to get more?: Never true Within the past 12 months, did you worry whether your food would run out before you got money to buy more?: Never true Do you have trouble paying for medicines?: No Do you have trouble getting transportation to medical appointments?: No Do you have trouble paying your heating and electricity bill?: No Do you have trouble taking care of your child, family member or friend?: No Do you have trouble with day-to-day activities such as bathing, preparing meals, shopping, managing finances, etc.?: No Are you currently unemployed and looking for a job?: No Are you interested in more education?: No Please select the resources that you would like help with: None Currently or been in a relationship where the following occur: No concerns reported THRIVE Score: 0 AUDIT C Alcohol Use Questionnaire (AUDIT-C) 1. How often do you have a drink containing alcohol?: Never 3. How often do you have six or more drinks on one occasion?: Never Total Score: 0 VICENTA-7 AMB Questionnaire VICENTA-7 Date VICENTA - 7 assessed: 11/04/24 Feeling nervous, anxious, or on edge: 1 = Several days Not being able to stop or control worryin = Several days Worrying too much about different things: 1 = Several days Trouble relaxin = Several days Being so restless that it is hard to sit still: 2 = More than half the days Becoming easily annoyed or irritable: 0 = Not at all Feeling afraid as if something awful might happen: 0 = Not at all Total VICENTA-7 score (0-4 normal; 5-9 mild; 10-14 moderate; 15-21 severe): 6 Source: Developed by Drs. Howard Dillon, Shobha Casas, Armando Gaspar and colleagues, with an educational aleah from [employer]. VICENTA-7 Assessment Billing VICENTA-7 Assessment Tool: VICENTA-7 Assessment 99570 Review of Systems Const All systems reviewed & are unremarkable except as noted in HPI and below Eyes Reports no additional complaints ENT Reports no additional complaints Card Reports no additional complaints Resp Reports no additional complaints GI Reports no additional complaints Reports no additional complaints Physical exam (Primary Care) Vital Signs: Last Vital Signs Temp 98.1 F 11/04/24 10:00 Pulse 94 11/04/24 10:00 Resp 18 11/04/24 10:00 BP 120/68 11/04/24 10:00 Pulse Ox 95 11/04/24 10:00 Oxygen Delivery Method Room Air 11/04/24 10:00 BMI result Body Mass Index 22.4 Tobacco/Smoking Status: Tobacco use Status Tobacco use date assessed 11/04/24 11/04/24 10:14 Patient Tobacco Use Status Former Tobacco user 11/04/24 10:14 Tobacco use type Cigarette 11/04/24 10:14 e-Cigarette/Vaping Use Never Used 11/04/24 10:14 PHQ-9: PHQ-9 Score PHQ-9: Total score 19 11/04/24 10:14 Depression Screening Interpretation: Positive (Established with psychiatrist on citalopram) Depression Screening Follow-up: Existing condition and In treatment Thrive Assessment: Date of Thrive Assessment Date Thrive assessed 11/04/24 11/04/24 10:14 Currently or been in a relationship where the following occur: No concerns reported Const General: no acute distress HENMT Head: Yes normal to inspection Eyes General: appearance normal, both eyes and all related structures Resp Effort & Inspection: normal respiratory effort Auscultation: clear to auscultation bilaterally Cardio Rhythm: regular rhythm Heart sounds: S1 normal heart sound present and S2 normal heart sound present GI Inspection: Yes normal to inspection Palpation (GI): Soft to palpation Percussion: Yes normal to percussion Auscultation: normal bowel sounds Coding Level of Care Code Est Pt Level 4 (23126) Diagnoses Thrombocytopenia D69.6 Primary biliary cholangitis K74.3 Anxiety F41.9 Additional Codes VICENTA-7 Assessment Billing - VICENTA-7 Assessment Tool: VICENTA-7 Assessment 17632 ([id number]) PHQ-9 - 07209 - PHQ-9 Billing: Yes ([id number]) Assessment & Plan Assessment & Plan (1) Thrombocytopenia: Comment: Due to liver cirrhosis Code(s): D69.6 - Thrombocytopenia, unspecified Category: Medical Plan: Monitor CBC (2) Primary biliary cholangitis: Comment: A very pleasant 66-year-old woman known to me from [facility] with history of liver transplant 2015- -PBC Recent liver biopsy shows recurrent PBC Code(s): K74.3 - Primary biliary cirrhosis Category: Medical Plan: Continue current medications follow-up with SHEKHAR a Charlie (3) Anxiety: Code(s): F41.9 - Anxiety disorder, unspecified Category: Medical Plan: Continue current medications and follow-up with counseling
--- OUTSIDE RECORDS SUMMARY | 2024-11-04 10:26 | XMS_ITS | Clinical Summary ---
Author Organization [facility] Address [facility] [address] [place] [address] Phone Care Team Providers Care Medical Instrument Cable Fabricator Name Role Phone Taylor Zapata MD Primary Care Provider [phone] Encounters Date Type Department Care Team Description 10/20/2024 Orders Only [facility] [address] [place] [address] Homehealth, Interface Provider, from Last 3 Months Social History Tobacco Use Types Packs/Day Years Used Date Smoking Tobacco: Never Assessed Education Answer Date Recorded Are you interested in more education? Not on jody e 09/21/2023 Are you concerned about learning? Not on file 09/21/2023 No 09/21/2023 No 09/21/2023 Digital Access Answer Date Recorded No 09/21/2023 No 09/21/2023 Reliable internet access at home? Not on file 09/21/2023 Device with a working camera? Not on file Comments Unknown Sex and Gender Information Value Date Recorded Sex Assigned at Female 10/09/2023 7:28 PM EDT Legal Sex Female 9:56 PM EDT Gender Identity Female 10/09/2023 7:28 PM EDT Sexual Orientation Straight 10/09/2023 7: 28 PM EDT Plan of Treatment Upcoming Encounters Date Type Department Care Team (Late st Contact Info) Description 01/27/2025 4:45 PM EDT Office Visit [facility] [address] [place] [address] Aline Elizabeth MD [address] [facility], [address] [place] [address] [email or web address] Health Maintenance Due Date Last Done Comments Adult Td,Tdap Booster 1954 LIPID PANEL 1954 DEPRESSION SCREENING 1966 SMOKING Hx and SMOKELESS TOBACCO SCREENING 09/15/1967 MAMMOGRAM 1994 COLOGUARD 09/15/1999 COLONOSCOPY 09/15/1999 COLORECTAL CANCER SCREENING 09/15/1999 FIT TEST 09/15/1999 FOBT 09/15/1999 SIGMOIDOSCOPY 09/15/1999 VIRTUAL COLONOSCOPY 09/15/1999 PNEUMOCOCCAL VACCINES (50+ years) (1 of 1 - PCV) 2004 ZOSTER VACCINES (1 of 2) 2004 OSTEOPOROSIS SCREENING INITI AL (ONE-TIME) 09/15/2019 COVID-19 VACCINE ( - 2023-2 5 season) 2023 RSV VACCINE (1 - 1-dose 75+ series) 2029 HEPATITIS C SCREENING Completed 08/18/2023 , 10/19/2022 HEPATITIS A VACCINES Aged Out No long er eligible based on patient's age to complete this topic HIB VACCINES Aged Out No longer eligi ble based on patient's age to complete this topic MENINGOCOCCAL VACCINES (ACWY) Aged Out No longer eligible based on patient's age to complete this topic MENINGOCOCCAL VACCINES (B) Aged Out N o longer eligible based on patient's age to complete this topic Medical Devices Not on file Insurance MEDICARE PART A & B FOR LIFE MEDICARE SUPPLEMENT Member Subscriber Plan / Payer (Ef fective 2023-Present) Name:DouglassIsraa Relation to Subscriber:Self Name:Praveena Douglass Payer ID:[id number] (NAIC) Group ID:Not on file Type:[facility] Address: [place] [phone] MEDICARE PART A & B FOR LIFE MEDICARE SUPPLEMENT MEDICARE PART A & B FOR LIFE MEDICARE SUPPLEMENT MEDICARE PART A & B [facility] FOR LIFE MEDICARE SUPPLEMENT MEDICARE PART A & B [facility] FOR LIFE MEDICARE SUPPLEMENT MEDICARE PART A & B [facility] FOR LIFE MEDICARE SUPPLEMENT Care Teams Medical Instrument Cable Fabricator Relationship Specialty Start Date End Date Taylor Zapata MD [address] [place] [address] PCP - General Internal Medicine 09/14/23 Additional Source Comments The information contained in this document represents components of the legal health record. It is not the complete legal health record.[facility]
--- OUTSIDE RECORDS SUMMARY | 2024-11-04 10:26 | XMS_ITS | Encounter Summary ---
Author Organization [facility] Address [address] [place] [address] Care Team Providers Care Export Agent Name Role Phone Jodi Taylor Primary Care Provider [phone] Encounter Details Date Type Department Care Team (Late st Contact Info) Description 10/14/2024 Results Follow-Up [facility] Transplant Services [address] [place] [address] [phone] Ida Coon, LASHANDA Social History Tobacco Use Types Packs/Day Years Used Date Smoking Tobacco: Former Cigarettes Smokeless Tobacco: Never Alcohol Use Standard Drinks/Week Comments Never 0 (1 standard drink = 0.6 oz pur e alcohol) [facility] Utilities Answer Date Recorded In the past 12 months has e electric, gas, oil, or water company threatened to shut off services in your home? No 09/03/2024 Hunger Vital Sign Answer Date Recorded Within the past 12 months, y ou worried that your food would run out before you got the money to buy more. Never true 09/04/19 25 Within the past 12 months, t he food you bought just didn't last and you didn't have money to get more. Never true 09/03/2024 Transportation Answer Date Recorded In the past 12 months, has l ack of reliable transportation kept you from medical appointments, meetings, work or from getting things needed for daily living? No 09/03/2024 Housing Answer Date Recorded Housing Risk Low 2 09/03/2024 Housing Risk Medium Not on file 09/03/2024 Housing Risk High Not on file 09/03/2024 What is your living situation today? LSSTEADY 09/03/2024 Comments Unknown Sex and Gender Information Value Date Recorded Sex Assigned at Female 12/01/2023 12:25 PM EDT Legal Sex Female 12:06 AM EDT Gender Identity Female 12/19/2023 8:48 AM EDT Sexual Orientation Straight 12/19/2023 8: 48 AM EDT documented as of this encounter Plan of Treatment Upcoming Encounters Date Type Department Care Team (Late st Contact Info) Description 12/16/2024 3:20 PM EDT Office Visit [facility]iology at [facility] [address] [facility] [address] [place] [address] Nic Yen MD [address] [place] [address] 01/14/2025 10:30 AM EDT Follow-Up [facility] Transplant Services [address] [place] [address] Joycelyn Becerra MD [address] [place] [address] 03/04/2025 11:00 AM EST Nutrition [facility] [address] [place] [address] Joycelyn Becerra MD [address] [place] [address] [facility], [place] 04/10/2025 3:30 PM EST Office Visit [facility]rology [facility] [address] [place] [address] Ascencion Bowden MD [address] [place] [address] 04/23/2025 11:00 AM EST Office Visit [facility] [address] [place] [address] Carin Starkey MD [address] [place] [address] 10/14/2025 10:00 AM EDT Office Visit [facility] [address] [facility] Department [address] [facility] [place] [address] Lupe Ron NP [address] [place] [address] documented as of this encounter Visit Diagnoses Not on filedocumented in this encounter Care Teams Export Agent Relationship Specialty Start Date End Date Taylor Zapata [address] [place] [address] PCP - General Internal Medicine 12/01/23 documented as of this encounter
== END 2024-11-04 12:29 | disposition home or self-care (01) ==
LOC: HO.HMCC 09:57
PROVIDERS: PCP Internal Medicine; Visit Provider Internal Medicine
DX: D69.6 Thrombocytopenia, unspecified (principal); K74.3 Primary biliary cirrhosis; F41.9 Anxiety disorder, unspecified

== ENCOUNTER → 2024-11-04 09:56 | Outpatient (BNVA) | payer MEDICARE, OTHER, SELFPAY | PROVIDERS: PCP Internal Medicine; Visit Provider Internal Medicine | DX: D69.6 Thrombocytopenia, unspecified (principal); K74.3 Primary biliary cirrhosis; F41.9 Anxiety disorder, unspecified | CPT/HCPCS: 96127; 99212 ==

== ENCOUNTER 2024-12-23 12:09 | Outpatient (REF) | payer MEDICARE, OTHER, SELFPAY ==
--- OUTSIDE RECORDS SUMMARY | 2024-12-22 07:29 | XMS_ITS | Encounter Summary ---
Author Organization [facility] Address [address] [place] [address] Care Team Providers Care Administrative Support Assistant Name Role Phone Jodi Taylor Primary Care Provider Encounter Details Date Type Department Care Team (Latest Contact Info) Description 12/22/2024 7:29 AM EDT - 12/22/2024 11:59 PM EDT Hospital Encounter [facility] Ultrasound [address] [place] [address] Abdominal distention Discharge Disposition: Home or Self Care () Social History Tobacco Use Types Packs/Day Years Used Date Smoking Tobacco: Former Cigarettes Smokeless Tobacco: Never Alcohol Use Standard Drinks/Week Comments Never 0 (1 standard drink = 0.6 oz pur e alcohol) [facility] Utilities Answer Date Recorded In the past 12 months has th e electric, gas, oil, or water [employer] threatened to shut off services in your [...] your living situation today? LSSTEADY 09/03/2024 Comments No Sex and Gender Information Value Date Recorded Sex Assigned at Female 12/01/2023 12:25 PM EDT Legal Sex Female 12:06 AM EDT Gender Identity Female 12/19/2023 8:48 AM EDT Sexual Orientation Straight 12/19/2023 8: 48 AM EDT documented as of this encounter Last Filed Vital Signs Vital Sign Reading Time Taken Comments Blood Pressure 113/71 12/22/2024 9:15 AM EDT Pulse 88 12/22/2024 9:15 AM EDT Temperature 36.6 C (97.8 F) 12/22/2024 8:13 AM EDT Respiratory Rate 20 12/22/2024 9:15 AM EDT Oxygen Saturation 96% 12/22/2024 9:15 AM EDT Inhaled Oxygen Concentration - - Weight - - Height - - Body Mass Index - - documented in this encounter Medications at Time of Discharge albuterol (PROAIR HFA,VENTOLIN HFA) 90 mcg inhaler Inhale 2 puffs by mouth every 6 hours as needed for shortness of breath or wheezing. 5 buPROPion XL (WELLBUTRIN XL) 150 mg tablet Take 300 mg by mouth every morning. 4 cholecalciferol (VITAMIN D3) 1,000 unit tablet Take 1,000 Units by mouth once a day. colesevelam (WELCHOL) 625 mg tablet Take 1,250 mg by mouth 2 times a day with meals. 3 cyanocobalamin 1,000 mcg tablet Take 1,000 mcg by mouth once a day. escitalopram (LEXAPRO) 10 mg tablet Take 10 mg by mouth once a day. 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 45 tablet 11 5 12/12/19 26 gabapentin (NEURONTIN) 300 mg capsule Take 600 mg by mouth every night. Galzin 50 mg (zinc) capsule Take 1 capsule by mouth once a day. 3 lansoprazole (PREVACID) 30 mg capsule SMARTSI Capsule(s) By Mouth Daily 5 LORazepam (ATIVAN) 0.5 mg tablet Take 2 tablets (1 mg total) by mouth once as needed for anxiety for up to 1 dose. Take 1 to 2 tablets about 1 hour before procedure 2 tablet 5 magnesium gluconate (MAGONATE) 27.5 mg magne- sium (500 mg) tablet Take 500 mg by mouth once a day. ondansetron (ZOFRAN ODT) 4 mg disintegrating tablet SMARTSI Tablet(s) By Mouth Every 8 Hours PRN 3 pyridoxine (VITAMIN B6) 25 mg tablet Take 8 tablets (200 mg total) by mouth 2 (two) times a day. 5 rifAXIMin (XIFAXAN) 550 mg tabletIndications:Hepa tic encephalopathy (HCC) Take 1 tablet (550 mg total) by mouth every 12 hours. 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 120 tablet 3 5 sucralfate (CARAFATE) 1 gram tablet Take 1 g by mouth daily. 5 tacrolimus (PROGRAF) 0.5 mg capsule Take 1 capsule (0.5 mg total) by mouth 2 times a day. 60 capsule 11 5 12/19/19 26 ursodioL (ACTIGALL) 500 mg tablet Take 1 tablet (500 mg total) by mouth 2 times a day. 60 tablet 11 5 06/19/19 26 documented as of this encounter Nursing Notes * Deng Ramirez, LASHANDA - 12/22/2024 9:12 AM EDT PT ARRIVED TO [facility] EXTREMELY SLEEPY PT STATES SHE TOOK ATIVAN THIS AM. SON WITH PT AND HE WAS USED FOR CONSENT PT IS UNABLE TO CONSENT AT THIS TIME. POST SCAN PT HAS SCANT AMT OF FLUID, PROCEDURE ABORTED. documented in this encounter Miscellaneous Notes * Post-Procedure Note - Twin Carlos NP - 12/22/2024 9:00 AM EDT PROCEDURE: Diagnostic and therapeutic paracentesis. Procedure not performed. INDICATION: 69 y.o. year old female with cirrhosis and recurrent ascites. ATTENDING: Dr. Steve Sevilla MD, the Attending physician, was on site and immediately available for assistance throughout the entire procedure. FILM SOUND COORDINATOR: Twin Carlos NP SEDATION: None GUIDANCE: Ultrasound. COMPLICATIONS: None. TECHNIQUE: Informed consent was obtained from the patient after discussion of risks, benefits, and alternatives. Limited ultrasound examination of the all four quadrants demonstrated no ascites amenable to paracentesis. An ultrasound image was stored for the permanent record. Paracentesis not performed. FINDINGS: Targeted ultrasound of the abdomen showed no ascites amenable to paracentesis. Paracentesis not performed. IMPRESSION: Paracentesis not performed. documented in this encounter Plan of Treatment Upcoming Encounters Date Type Department Care Team (Late st Contact Info) Description 01/02/2025 10:00 AM EDT Appointment [facility] Cardiology Ultrasound [address] [place] [address] 01/14/2025 8:00 AM EDT Office Visit [facility] [address] [place] [address] Floral Designer: Uriel Garcia MD [address] [place] [address] 01/14/2025 10:30 AM EDT Follow-Up [facility] [address] [place] [address] Joycelyn Becerra MD [address] [place] [address] 03/04/2025 11:00 AM EST Nutrition [facility] [address] [place] [address] Joycelyn Becerra MD [address] [place] [address] [facility] [place], [place] 04/10/2025 3:30 PM EST Office Visit [facility] Neurology Clinic [address] [place] [address] Ascencion Bowden MD [address] [place] [address] 04/23/2025 11:00 AM EST Office Visit [facility] Neurology Clinic [address] [place] [address] Carin Starkey MD [address] [place] [address] 10/14/2025 10:00 AM EDT Office Visit [address] Department [address] [place] [address] [place] [address] Lupe Ron NP [address] [place] [address] documented as of this encounter Procedures * Due to [place] [employer] law, this organization might not be sharing negative HIV tests. Procedure Name Priority Date/Time Associated Diagnosis Comments US GUIDED PARACENTESIS ABDOMEN DIAGNOSTIC OR THERAPEUTIC Routine 12/22/2024 9:27 AM EDT Abdominal distention documented in this encounter Results * Due to [facility] law, this organization might not be sharing negative HIV tests. * US Abdomen Paracentesis Diagnostic or Therapeutic (12/22/2024 9:27 AM EDT) Anatomical Region Laterality Modality Body N/A Ultrasound Impressions 12/22/2024 9:31 AM EDT Paracentesis not performed. Narrative 12/22/2024 9:31 AM EDT PROCEDURE: Diagnostic and therapeutic paracentesis. Procedure not performed. INDICATION: 69 y.o. year old female with cirrhosis and recurrent ascites. ATTENDING: Dr. Steve Sevilla MD, the Attending physician, was on site and immediately available for assistance throughout the entire procedure. FILM SOUND COORDINATOR: Twin Carlos NP SEDATION: None GUIDANCE: Ultrasound. COMPLICATIONS: None. TECHNIQUE: Informed consent was obtained from the patient after discussion of risks, benefits, and alternatives. Limited ultrasound examination of the all four quadrants demonstrated no ascites amenable to paracentesis. An ultrasound image was stored for the permanent record. Paracentesis not performed. FINDINGS: Targeted ultrasound of the abdomen showed no ascites amenable to paracentesis. Paracentesis not performed. us Joycelyn Becerra MD IMG US PROCEDURES Final Result documented in this encounter Visit Diagnoses Diagnosis Abdominal distention Flatulence, eructation, and gas pain documented in this encounter Care Teams Administrative Support Assistant Relationship Specialty Start Date End Date Taylor Zapata [address] [place] [address] PCP - General Internal Medicine 12/01/23 documented as of this encounter
[2024-12-23 13:14] LABS: MANUAL DIFF FLAG NO
[2024-12-23 13:23] LABS: Hematocrit 33.7 % (37.0-47.0); Hemoglobin 10.5 g/dl (12.0-16.0); Imm Gran Abs Auto 0.01 X10*3/uL (0.00-0.03); Imm Gran Pct Auto 0.2 % (0.0-0.4); Lymphocytes Absolute Auto 0.7 X10*3/uL (1.2-4.9); Mean Corpuscular HGB Conc 31.2 g/dl (31.0-35.0); Mean Corpuscular Hemoglobin 26.6 pg (27.0-33.0); Mean Corpuscular Volume 85.5 fL (80.0-98.0); NRBC Abs Auto 0.000 X10*3/uL (0.0-0.012); NRBC Pct Auto 0.0 /100WBC (0.0-0.2); Platelet Count 133 X10*3/uL (160-400); Red Blood Count 3.94 X10*6/uL (4.20-5.50); White Blood Count 5.2 X10*3/uL (4.8-10.8)
[2024-12-23 14:13] LABS: Alanine Aminotransferase 24 U/L (0-31); Albumin Level 3.3 g/dL (3.5-5.0); Alkaline Phosphatase 175 U/L (39-117); Anion Gap 11 (12-20); Aspartate Amino Transferase 37 U/L (5-31); Blood Urea Nitrogen 25 mg/dL (9-16); Calcium 8.6 mg/dL (8.4-10.2); Carbon Dioxide 27 mmol/L (22-29); Chloride 108 mmol/L (96-108); Estimated Glomerular Filt Rate 57; Iron 46 mcg/dL (30-160); Percent Iron Saturation 20 % (15-50); Potassium 4.3 mmol/L (3.3-5.1); Sodium 142 mmol/L (135-145); Total Iron Binding Capacity 227 mcg/dL (228-428); Total Protein 6.9 g/dL (6.5-8.0); Unsaturated Iron Binding 181 ug/dL
--- OUTSIDE RECORDS SUMMARY | 2024-12-23 15:04 | XMS_ITS | Encounter Summary ---
Author Organization [facility] Address [address] [place] [address] Care Team Providers Care Microsoft Exchange Architect Name Role Phone Jodi Taylor Primary Care Provider [phone] Encounter Details Date Type Department Care Team (Late st Contact Info) Description 12/23/2024 Telephone [facility] Transplant Department [address] [place] [address] Ida Coon, RN Social History Tobacco Use Types Packs/Day Years Used Date Smoking Tobacco: Former Cigarettes Smokeless Tobacco: Never Alcohol Use Standard Drinks/Week Comments Never 0 (1 standard drink = 0.6 oz pur e alcohol) [facility] Utilities Answer Date Recorded In the [...] Telephone Encounter - Ida Coon RN - 12/23/2024 12:33 PM EDT Spoke with Denice. She was told by her brother and mother that they did not do the paracentesis and that a repeat scan was not done. Advised her that they use ultrasound to do the paracentesis and theydid not see with the ultrasound fluid to drain. She is aware that her mother should continue on lasix 60 mg. She was appreciative of the information as her mother was extremely sleepy and she wasn't able to go with her yesterday. ----- Message from Joycelyn Becerra MD sent at 12/23/2024 12:26 PM EDT ----- I sent you a message yesterday about her. Either they couldn't find a safe pocket to tap or the higher dose of fluid pill is working. ----- Message ----- From: Ida Coon RN Sent: 12/23/2024 11:23 AM EDT To: Joycelyn Becerra MD ----- Message ----- From: Nae Meraz Sent: 12/23/2024 9:05 AM EDT To: Ida Coon RN Abdias, Pt's daughter calling because the ultrasound was done but the paracentisis was scheduled for Yesterday and the doctor said she did not have enough fluid to have. She wants to know why was it scheduled then. Denice Kennedy Daughter [phone] Nae documented in this encounter Plan of Treatment Upcoming Encounters Date Type Department Care Team (Late st Contact Info) Description 01/02/2025 10:00 AM EDT Appointment [facility] Cardiology Ultrasound [address] [place] [address] 01/14/2025 8:00 AM EDT Office Visit [facility] [address] [place] [address] Engine Lathe Set Up Operator: Uriel Garcia MD [address] [place] [address] 01/14/2025 10:30 AM EDT Follow-Up [facility] Liver Transplant Services [address] [place] [address] Joycelyn Becerra MD [address] [place] [address] 03/04/2025 11:00 AM EST Nutrition [facility] Transplant Services [address] [place] [address] Joycelyn Becerra MD [address] [place] [address] [facility] NUTRITION R[place], [place] 04/10/2025 3:30 PM EST Office Visit [facility] Building Neurology Clinic [address] [place] [address] Ascencion Bowden MD [address] [place] [address] 04/23/2025 11:00 AM EST Office Visit [facility] Building Neurology Clinic [address] [place] [address] Carin Starkey MD [address] [place] [address] 10/14/2025 10:00 AM EDT Office Visit [facility] [address] [facility] Department [address] [place] [address] [place] [address] Lupe Ron NP [address] [place] [address] documented as of this encounter Visit Diagnoses Not on filedocumented in this encounter Care Teams Microsoft Exchange Architect Relationship Specialty Start Date End Date Taylor Zapata [address] [place] [address] PCP - General Internal Medicine 12/01/23 documented as of this encounter
--- OUTSIDE RECORDS SUMMARY | 2024-12-23 15:04 | XMS_ITS | Encounter Summary ---
Author Organization [facility] Address [address] [place] [address] Care Team Providers Care Contract Coordinator Name Role Phone NinonataliebabatundeTaylor Primary Care Provider [phone] Encounter Details Date Type Department Care Team (Late st Contact Info) Description 11/24/2024 myChart Message [facility] Liver Transplant Services [address] [place] [address] Joycelyn Becerra MD [address] [place], [place] [phone] Recent Lab Work Social History Tobacco Use Types Packs/Day Years Used Date Smoking Tobacco: Former Cigarettes Smokeless Tobacco: Never Alcohol Use Standard Drinks/Week Comments Never 0 (1 standard drink = 0.6 oz pur e alcohol) [facility] Utilities Answer Date Recorded In the past 12 months has th e [employer], gas, oil, or water [employer] threatened to shut off services in your [...] Info) Description 01/02/2025 10:00 AM EDT Appointment [facility] Cardiology Ultrasound [address] [place] [address] 01/14/2025 8:00 AM EDT Office Visit [facility] [address] [place] [address] Stevedoring Supervisor: Uriel Garcia MD [address] [place] [address] 01/14/2025 10:30 AM EDT Follow-Up [facility] Liver Transplant Services [address] [place] [address] Joycelyn Becerra MD [address] [place] [address] 03/04/2025 11:00 AM EST Nutrition [facility] Liver Transplant Services [address] [place] [address] Joycelyn Becerra MD [address] [place] [address] [facility] NUTRITION [place], [place] 04/10/2025 3:30 PM EST Office Visit [facility] Neurology Clinic [address] [place] [address] Ascencion Bowden MD [address] [place] [address] 04/23/2025 11:00 AM EST Office Visit [facility] Neurology Clinic [address] [place] [address] Carin Starkey MD [address] [place] [address] 10/14/2025 10:00 AM EDT Office Visit [facility] [address] [facility] Department [address] [place] [address] [place] [address] Lupe Ron NP [address] [place] [address] documented as of this encounter Visit Diagnoses Not on filedocumented in this encounter Care Teams Contract Coordinator Relationship Specialty Start Date End Date Taylor Zapata [address] [place] [address] PCP - General Internal Medicine 12/01/23 documented as of this encounter
--- OUTSIDE RECORDS SUMMARY | 2024-12-23 15:04 | XMS_ITS | Encounter Summary ---
Author Organization [facility] Address [address] [place] [address] Care Team Providers Care Bobbin Sorter Name Role Phone Jodi Taylor Primary Care Provider [phone] Encounter Details Date Type Department Care Team (Late st Contact Info) Description 12/19/2024 Telephone [facility] Interventional Radiology [address], [place] [phone] Guillermina Luna RN Social History Tobacco Use Types Packs/Day Years Used Date Smoking Tobacco: Former Cigarettes Smokeless Tobacco: Never Alcohol Use Standard Drinks/Week Comments Never 0 (1 standard drink = 0.6 oz pur e alcohol) [facility] Utilities Answer Date Recorded In the past 12 months has th e electric, gas, oil, or water company [...] encounter Miscellaneous Notes * Telephone Encounter - Guillermina Luna RN - 12/19/2024 11:38 AM EDT Message left for pt. Reminded of appt on Friday 12/22 at 0830 for paracentesis. Address and phone number of [facility] IR dept left on . documented in this encounter Plan of Treatment Upcoming Encounters Date Type Department Care Team (Late st Contact Info) Description 01/02/2025 10:00 AM EDT Appointment [facility] Cardiology Ultrasound [address] [place] [address] 01/14/2025 8:00 AM EDT Office Visit [facility] [address] [place] [address] Dye Winch Operator: Uriel Garcia MD [address] [place] [address] 01/14/2025 10:30 AM EDT Follow-Up [facility] Trans[facility] [address] [place] [address] Joycelyn Becerra MD [address] [place] [address] 03/04/2025 11:00 AM EST Nutrition [facility] [address] [place] [address] Joycelyn Becerra MD [address] [place] [address] [facility] [place], [place] 04/10/2025 3:30 PM EST Office Visit [facility] Neurology [facility] [address] [place] [address] Ascencion Bowden MD [address] [place] [address] 04/23/2025 11:00 AM EST Office Visit [facility] [address] [place] [address] Carin Starkey MD [address] [place] [address] 10/14/2025 10:00 AM EDT Office Visit [facility] Department [address] [place] [phone] Lupe Ron NP [address] [place] [address] documented as of this encounter Visit Diagnoses Not on filedocumented in this encounter Care Teams Bobbin Sorter Relationship Specialty Start Date End Date Taylor Zapata [address] [place] [address] PCP - General Internal Medicine 12/01/23 documented as of this encounter
--- OUTSIDE RECORDS SUMMARY | 2024-12-23 15:04 | XMS_ITS | Encounter Summary ---
Author Organization [facility] Address [address] [place] [address] Care Team Providers Care Spoilage Worker Name Role Phone JodiTaylor Primary Care Provider [phone] Encounter Details Date Type Department Care Team (Late st Contact Info) Description 10/27/2024 Results Follow-Up [facility] Liver Transplant Services [address] [place], [place] [phone] Joycelyn Becerra MD [address] [place], [place] [phone] Social History Tobacco Use Types Packs/Day Years Used Date Smoking Tobacco: Former Cigarettes Smokeless Tobacco: Never Alcohol Use Standard Drinks/Week Comments Never 0 (1 standard drink = 0.6 oz pur e alcohol) [facility] Utilities Answer Date Recorded In the past 12 months has [employer], gas, oil, or water [employer] threatened to shut off services in your [...] Info) Description 01/02/2025 10:00 AM EDT Appointment [facility] Cardiology Ultrasound [address] [place] [address] 01/14/2025 8:00 AM EDT Office Visit [facility] [address] [place] [address] Document Coordinator: Uriel Garcia MD [address] [place] [address] 01/14/2025 10:30 AM EDT Follow-Up [facility] Liver Transplant Services [address] [place] [address] Joycelyn Becerra MD [address] [place] [address] 03/04/2025 11:00 AM EST Nutrition [facility] Liver Transplant Services [address] [place] [address] Joycelyn Becerra MD [address] [place] [address] [facility] NUTRITION [place], [place] 04/10/2025 3:30 PM EST Office Visit [facility] [address] [place] [address] Ascencion Bowden MD [address] [place] [address] 04/23/2025 11:00 AM EST Office Visit [facility] [address] [place] [address] Carin Starkey MD [address] [place] [address] 10/14/2025 10:00 AM EDT Office Visit [facility] 10 [facility] Department [address] [place] [phone] Lupe Ron NP [address] [place] [address] documented as of this encounter Visit Diagnoses Not on filedocumented in this encounter Care Teams Spoilage Worker Relationship Specialty Start Date End Date Taylor Zapata [address] [place] [address] PCP - General Internal Medicine 12/01/23 documented as of this encounter
--- OUTSIDE RECORDS SUMMARY | 2024-12-23 15:04 | XMS_ITS | Encounter Summary ---
Author Organization [facility] Address [address] [place] [address] Care Team Providers Care Phlebotomy Manager Name Role Phone Jodi Taylor Primary Care Provider [phone] Encounter Details Date Type Department Care Team (Late st Contact Info) Description 12/15/2024 Earlier Mediat Message [facility] Liver Transplant Services [address] [place] [address] Joycelyn Becerra MD [address] [place], [place] [phone] Follow up to 12/10 call Social History Tobacco Use Types Packs/Day Years Used Date Smoking Tobacco: Former Cigarettes Smokeless Tobacco: Never Alcohol Use Standard Drinks/Week Comments Never 0 (1 standard drink = 0.6 oz pur e alcohol) [facility] Utilities Answer Date Recorded In the past 12 months has th e [employer], gas, oil, or water [employer] threatened to shut off services in your [...] Info) Description 01/02/2025 10:00 AM EDT Appointment [facility] Cardiology Ultrasound [address] [place] [address] 01/14/2025 8:00 AM EDT Office Visit [facility] [address] [place] [address] Search Engine Optimizer: Uriel Garcia MD [address] [place] [address] 01/14/2025 10:30 AM EDT Follow-Up [facility] Liver Transplant Services [address] [place] [address] Joycelyn Becerra MD [address] [place] [address] 03/04/2025 11:00 AM EST Nutrition [facility] Liver Transplant Services [address] [place] [address] Joycelyn Becerra MD [address] [place] [address] [facility] NUTRITION [place] 04/10/2025 3:30 PM EST Office Visit [facility] Neurology Clinic [address] [place] [address] Ascencion Bowden MD [address] [place] [address] 04/23/2025 11:00 AM EST Office Visit [facility] Neurology Clinic [address] [place] [address]17 Carin Starkey MD [address] [place] [address] 10/14/2025 10:00 AM EDT Office Visit [facility] Department [address] [place] [phone] Lupe Ron NP [address] [place] [address] documented as of this encounter Visit Diagnoses Not on filedocumented in this encounter Care Teams Phlebotomy Manager Relationship Specialty Start Date End Date Taylor Zapata [address] [place] [address] PCP - General Internal Medicine 12/01/23 documented as of this encounter
--- OUTSIDE RECORDS SUMMARY | 2024-12-23 15:04 | XMS_ITS | Encounter Summary ---
Author Organization [facility] Address [address] [place] [address] Care Team Providers Care Brush Maker Machine Name Role Phone NinonataliebabatundeTaylor Primary Care Provider [phone] Reason for Visit * Reason Onset Date Comments Med Refill 12/18/2024 Encounter Details Date Type Department Care Team (Late st Contact Info) Description 12/18/2024 Refill [facility] Liver Transplant Services [address] [place], [place] [phone] Joycelyn Becerra MD [address] [place], [place] [phone] Social History Tobacco Use Types Packs/Day Years Used Date Smoking Tobacco: Former Cigarettes Smokeless Tobacco: Never Alcohol Use Standard Drinks/Week Comments Never 0 (1 standard drink = 0.6 oz pur e alcohol) [facility] Utilities Answer Date Recorded In the past 12 months has e electric, gas, oil, or water [employer] threatened to shut off services in your [...] Info) Description 01/02/2025 10:00 AM EDT Appointment [facility] Cardiology Ultrasound [address] [place] [address] 01/14/2025 8:00 AM EDT Office Visit [facility] [address] [place] [address] Die Inspector: Uriel Garcia MD [address] [place] [address] 01/14/2025 10:30 AM EDT Follow-Up [facility] Liver Transplant Services [address] [place] [address] Joycelyn Becerra MD [address] [place] [address] 03/04/2025 11:00 AM EST Nutrition [facility] Liver Transplant Services [address] [place] [address] Joycelyn Becerra MD [address] [place] [address] [facility] NUTRITION [place], [place] 04/10/2025 3:30 PM EST Office Visit [facility] Neurology Clinic [address] [place] [address] Ascencion Bowden MD [address] [place] [address] 04/23/2025 11:00 AM EST Office Visit [facility] [address] [place] [address] Carin Starkey MD [address] [place] [address] 10/14/2025 10:00 AM EDT Office Visit [facility] Department [address] [place] [phone] Lupe Ron NP [address] [place] [address] documented as of this encounter Visit Diagnoses Not on filedocumented in this encounter Care Teams Brush Maker Machine Relationship Specialty Start Date End Date Taylor Zapata [address] [place] [address] PCP - General Internal Medicine 12/01/23 documented as of this encounter
--- OUTSIDE RECORDS SUMMARY | 2024-12-23 15:04 | XMS_ITS | Encounter Summary ---
Author Organization [facility] Address [address] [place] [address] Care Team Providers Care Recycling Coordinator Name Role Phone Jodi Taylor Primary Care Provider [phone] Encounter Details Date Type Department Care Team (Late st Contact Info) Description 11/21/2024 Results Follow-Up [facility] Liver Transplant Services [address] [place] [address] [phone] Ida Coon, LASHANDA Social History Tobacco Use Types Packs/Day Years Used Date Smoking Tobacco: Former Cigarettes Smokeless Tobacco: Never Alcohol Use Standard Drinks/Week Comments Never 0 (1 standard drink = 0.6 oz pur e alcohol) [facility] Utilities Answer Date Recorded In the past [...] Info) Description 01/02/2025 10:[address] [facility] Cardiology Ultrasound [address] [place] [address] 01/14/2025 8:00 AM EDT Office Visit [facility] [address] [place] [address] Coutierier: Uriel Garcia MD [address] [place] [address] 01/14/2025 10:30 AM EDT Follow-Up [facility] Transplant Services [address] [place] [address] Joycelyn Becerra MD [address] [place] [address] 03/04/2025 11:00 AM EST Nutrition [facility] Transplant Services [address] [place] [address] Joycelyn Becerra MD [address] [place] [address] [facility] NUTRITION [place], [place] 04/10/2025 3:30 PM EST Office Visit [facility] Neurology Clinic [address] [place] [address] Ascencion Bowden MD [address] [place] [address] 04/23/2025 11:00 AM EST Office Visit [facility] Neurology Clinic [address] [place] [address] Carin Starkey MD [address] [place] [address] 10/14/2025 10:00 AM EDT Office Visit [facility] [address] [facility] Department 10 [place] [phone] Lupe Ron NP [address] [place] [address] documented as of this encounter Visit Diagnoses Not on filedocumented in this encounter Care Teams Recycling Coordinator Relationship Specialty Start Date End Date Taylor Zapata [address] [place] [address] PCP - General Internal Medicine 12/01/23 documented as of this encounter
--- OUTSIDE RECORDS SUMMARY | 2024-12-23 15:05 | XMS_ITS | Clinical Summary ---
Author Organization [facility] Address [address] [place] [address] Care Team Providers Care Foreign Language Teacher Name Role Phone Jodi Taylor Primary Care Provider [phone] Allergies Active Allergy Reactions Criticality Noted Date Comments Hydromorphone Hallucinations,Oth er (see comments) Medium 04/23/2015 MS changes -- hallucination Losartan Rash Low 09/28/2023 Sulfa (Sulfonamide Antibiotics) Rash Low 04/23/2015 Medications gabapentin (NEURONTIN) 300 mg capsule Take 600 mg by mouth every night. Active ondansetron (ZOFRAN ODT) 4 mg disintegrating tablet SMARTSI Tablet(s) By Mouth Every 8 Hours PRN 023 Active colesevelam (WELCHOL) 625 mg tablet Take 1,250 mg by mouth 2 times a day with meals. 023 Active magnesium gluconate (MAGONATE) 27.5 mg magne- sium (500 mg) tablet Take 500 mg by mouth once a day. Active Galzin 50 mg (zinc) capsule Take 1 capsule by mouth once a day. 023 Active cyanocobalamin 1,000 mcg tablet Take 1,000 mcg by mouth once a day. Active cholecalciferol (VITAMIN D3) 1,000 unit tablet Take 1,000 Units by mouth once a day. Active buPROPion XL (WELLBUTRIN XL) 150 mg tablet Take 300 mg by mouth every morning. 11/13/2 024 Active escitalopram (LEXAPRO) 10 mg tablet Take 10 mg by mouth once a day. Active ursodioL (ACTIGALL) 500 mg tablet Take 1 tablet (500 mg total) by mouth 2 times a day. 60 tablet 11 025 2025 Active lansoprazole (PREVACID) 30 mg capsule SMARTSI Capsule(s) By Mouth Daily Active sucralfate (CARAFATE) 1 gram tablet Take 1 g by mouth daily. Active pyridoxine (VITAMIN B6) 25 mg tablet Take 8 tablets (200 mg total) by mouth 2 (two) times a day. Active Additional Information Patient not taking.Reported on 12/22/2024 Lactobacillus rhamnosus GG (Culturelle) 10 billion cell capsule Take 1 capsule by mouth 2 times a day for 14 days. . 30 capsule Active Additional Information Patient not taking.Reported on 12/04/2024 albuterol (PROAIR HFA,VENTOLIN HFA) 90 mcg inhaler Inhale 2 puffs by mouth every 6 hours as needed for shortness of breath or wheezing. Active spironolactone (ALDACTONE) 25 mg tabletIndications:Li brigitte replaced by transplant (HCC),Encounter for immunosuppression management after liver transplant (HCC),Cirrhosis of liver with ascites, unspecified hepatic cirrhosis type (HCC),Abdominal distention Take 1 tablet (25 mg total) by mouth once a day. 120 tablet 3 Active rifAXIMin (XIFAXAN) 550 mg tabletIndications:He patic encephalopathy (HCC) Take 1 tablet (550 mg total) by mouth every 12 hours. 60 tablet 025 2025 Active Additional Information Patient not taking.Reported on 12/22/2024 furosemide (LASIX) 40 mg tabletIndications:Li brigitte replaced by transplant (HCC),Encounter for immunosuppression management after liver transplant (HCC),Abdominal distention,Portal hypertension (HCC) Take 1.5 tablets (60 mg total) by mouth once a day. 45 tablet 11 025 2025 Active LORazepam (ATIVAN) 0.5 mg tablet Take 2 tablets (1 mg total) by mouth once as needed for anxiety for up to 1 dose. Take 1 to 2 tablets about 1 hour before procedure 2 tablet Active tacrolimus (PROGRAF) 0.5 mg capsule Take 1 capsule (0.5 mg total) by mouth 2 times a day. 60 capsule 025 2025 Active cloNIDine (CATAPRES) 0.1 mg tablet SMARTSI Tablet(s) By Mouth 3 Times Daily PRN 2024 Discontinued furosemide (LASIX) 40 mg tabletIndications:Li brigitte replaced by transplant (HCC),Encounter for immunosuppression management after liver transplant (HCC),Abdominal distention,Portal hypertension (HCC) Take 1 tablet (40 mg total) by mouth once a day. 30 tablet 025 2024 Discontinued LORazepam (ATIVAN) 0.5 mg tablet Take 2 tablets (1 mg total) by mouth once as needed for anxiety for up to 1 dose. Take 1 to 2 tablets about 1 hour before procedure 2 tablet 025 2024 Discontinued Active Problems Problem Noted Date Diagnosed Date CAP (community acquired pneumonia) 09/25/2024 Assessment & Plan (09/25/2024 11:59 AM EDT): Continue on broad spectrum antibiotics Immunocompromised state due to drug therapy 09/01 Assessment & Plan (09/25/2024 12:02 PM EDT): On tacrolimus Pleural effusion 09/24/2024 Assessment & Plan (09/25/2024 11:59 AM EDT): C.c. shortness of breath x week There has been dose changes on Spironolactone due to recent admission s/t MANDA and hyperkalemia Recently resumed on Spironolactone at significantly reduced dose 25 mg x 5 days ago, Has been compliant with daily po Lasix 60 mg, Worsening MONTOYA x [address] shows Large left and moderate right pleural effusions. Near-complete atelectasis of the left lower lobe. S/p IV Lasix 40 mg in the ED, PLAN IR consulted for thoracentesis Also thoracic surgery consult Tele, prn oxygen (Currently saturating 98-99% on RA). Check I/O Resume diuresis Started on broad spectrum antibiotics Pancytopenia 09/24/2024 Assessment & Plan (09/25/2024 11:54 AM EDT): Close to baseline- PLT 75k, H/H 9.4/28.7 on admission Elevated d-dimer 09/24/2024 Assessment & Plan (09/25/2024 11:54 AM EDT): D-Dimer elevated to 5.59, Chest CT PE negative BLE US was negative. 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 Found to have bilateral subclavian vein thrombosis with numerous established vein collaterals. Unclear etiology for occlusions. Per Dr. Becerra, plan to follow with vascular. Due to chronicity and high bleeding risk due to cirrhosis and esophageal varices requiring banding, no anticoagulation. Assessment & Plan (09/04/2024 3:22 AM EDT): Patient underwent CT venogram of her neck and chest to better assess access prior to re-activation of liver transplant. Found to have bilateral subclavian vein thrombosis with numerous established vein collaterals. Patient reports that she has had a blood clot before. Patient noted to have history of Former tobacco use very limited and isolated as a teenager and Hx of breast cancer in the s/p surgical excision and radiation therapy on the right. Review of the chart reveals that in 2015 the patient was noted to have a left upper extremity clot at the site of an IV on ultrasound in the axillary, brachial and basilic veins. On October 15, 2015 the patient underwent a venogram which revealed a subclavian total occlusion. The above CT findings as well as this history and the presence of collateralization this is really a chronic process and not acute. Dr. BecerraReviewed her diagnostic venogram as multi-disciplinary team with transplant surgery and vascular surgery colleagues and, unfortunately, she would not have sufficient access for transplant so is not a re-do transplant candidate. Unclear etiology for occlusions. Follow with vascular. Plan: - Given also history of varices requiring banding, high bleeding risk, would defer anticoagulation at this time. - An operation to bypass the clot would be extensive and with risks outweighing benefits. -outpatient follow up with vascular surgery/medicine Crohn disease 09/04/2024 Assessment & Plan (09/24/2024 11:49 PM EDT): Diagnosed 2021, used to be on Entyvio Assessment & Plan (09/04/2024 3:43 PM EDT): Diagnosed 2021, on Entyvio as per [facility] d/c summary. She received Entyvio infusions at home every 6-8 weeks for Crohn's disease, through a visiting nurse. Unable to find further information in chart or what the status of her CD is. Patient follows with Dr. Kathy Galloway at [place]. Had recent abdominal pain. CT 3 phase ordered outpatient. Workup ongoing. -Plan for outpatient follow up Assessment & Plan (09/04/2024 3:22 AM EDT): Diagnosed 2021, on Entyvio as per [facility] d/c summary. She received Entyvio infusions at home every 6-8 weeks for Crohn's disease, through a visiting nurse. Unable to find further information in chart or what the status of her CD is. -obtain records from Dr. Galloway Anxiety 09/04/2024 Assessment & Plan (09/04/2024 3:43 PM EDT): Home medication(s): wellbutrin 300 mg qAM, clonidine 0.1mg 3 times a day PRN for anxiety, ecitalopram 10mg every day -Continue home wellbutrin and lexapro Assessment & Plan (09/04/2024 3:22 AM EDT): Home medication(s): wellbutrin 450 mg qAM, clonidine 0.1mg 3 times a day prn for anxiety attacks, ecitalopram 10mg every day, hydroxyzine 10 mg daily as needed for anxiety -Continue wellbutrin and lexapro -hold clonidine and atarax Peripheral neuropathy 09/04/2024 Assessment & Plan (09/24/2024 11:20 PM EDT): On Gabapentin Assessment & Plan (09/04/2024 3:43 PM EDT): Home medication(s): gabapentin 600 mg nightly -Continue home medication Assessment & Plan (09/04/2024 3:22 AM EDT): Home medication(s): gabapentin 600 mg qHS -Continue home medication GERD (gastroesophageal reflux disease) Assessment & Plan (09/04/2024 3:43 PM EDT): Home medication(s): lansoprazole 30 mg every day -Pantoprazole 40 mg daily while inpatient Assessment & Plan (09/04/2024 3:22 AM EDT): Home medication(s): Esomeprazole 40 mg daily, lansoprazole 30 mg every day - pantoprazole 40 mg daily MANDA (acute kidney injury) 09/04/2024 Assessment & Plan (09/04/2024 3:43 PM EDT): Baseline Cr ~ 1.0. Creatinine on admission was 1.4. May be pre-renal in the setting of poor PO intake. -Albumin 25mg x 1 6/ -Monitor BMP Assessment & Plan (09/04/2024 3:22 AM EDT): Baseline is around 1.0. Creatinine on admission was 1.4 now 1.25. Could be prerenal as patient to get better with 1 L LR and patient has poor p.o. intake -follow up FeNa - Continue to monitor Tremor 09/04/2024 Assessment & Plan (09/04/2024 3:43 PM EDT): Patient with resting tremor. Reported ?old stroke on CT head from [place]. Outpatient referral to neurology placed already. Assessment & Plan (09/04/2024 3:22 AM EDT): worsening resting tremor. reports concern for old stroke on CT head from [place]. Referral to neuro placed roldan -follow up outpatient Shortness of breath 09/04/2024 Assessment & Plan (09/04/2024 3:43 PM EDT): Patient endorsed dyspnea on exertion, lightheadedness/dizziness, ?orthostatic symptoms, generalized weakness for the past few months. Orthostatic vitals borderline, but negative. Patient endorsed dizziness with position changes. EKG unremarkable. 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 Becerra at [facility] On tacrolimus 0.5 mg twice daily, lasix 60mg every day ,aldactone 25 mg every day, ursodiol 500mg bid - Developed rapid cirrhosis over the past few years following liver transplant. Was requiring weekly/10d paracenteses for ascites, but has not required this in several months. Declined at [facility] for redo transplant given concerns of vascular access, bilateral subclavian vein occlusions with question of SVC involvement as well Assessment & Plan (09/04/2024 3:43 PM EDT): Home medication(s): tacrolimus 0.5 mg twice daily, lasix 60mg every day,aldactone 100mg every day, ursodiol 500mg bid Patient follows with Dr. Becerra for ongoing management of her liver condition. 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 Developed rapid cirrhosis over the past few years following liver transplant. Was requiring weekly/10d paracenteses for ascites, but has not required this in several months. Declined at [facility] for redo transplant given concerns of vascular access, bilateral subclavian vein occlusions with question of SVC involvement as well. Referred to [facility] for opinion regarding transplant candidacy. Unfortunately, not a candidate due to vascular access issues as per Dr. Becerra's note. with relisting for transplantation declined due to vascular access issues. Complications: Varices: non-bleeding esophageal varices (Varices required banding 12/2022); Patient reported EGD done by Dr. Galloway at [facility] in 07/2024 but no records in chart Ascites: diuretics, used to need large-volume paracentesis every 2 weeks, but has not in months SBP: No prior history Hepatic Hydrothorax: thoracentesis approximately 03/2024 Hepatic Encephalopathy: No prior history, has baseline tremor from stroke but does not appear to be asterixis Rejection history: none, biopsy from 2021 with graft cirrhosis and recurrent PBC, Immunosuppression at admission: tacrolimus 0.5 mg BID -Continue tacrolimus 0.5mg BID -Restart spironolactone at reduced dose 50mg (from home dose 100mg) -Resume home Lasix 60mg daily -Procedure team contacted for bedside US to evaluate for ascites and paracentesis if indicated -Miralax and rifaximin ordered Assessment & Plan (09/04/2024 3:22 AM EDT): Home medication(s): tacrolimus 0.5 mg twice daily, lasix 60mg every day,aldactone 100mg every day, ursodiol 500mg bid Background: 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 Galloway at [facility] in 07/2024 but no records in chart Last EGD:Varices required banding 12/2022. Last Colonoscopy: 2019 which revealed Non-bleeding internal hemorrhoids. It Business Systems Analyst: Dr. Becerra (last appt. Was technically 09/03/24 but last note is from 06/18/24) Complications: now with recurrent portal HTN (? recurrent PBC) c/b refractory ascites initially requiring weekly paracenteses and non-bleeding varices. Declined at [facility] for redo transplant given concerns over vascular access in light of findings of bilateral subclavian vein occlusions with question of SVC involvement as well. Referred to [facility] for opinion regarding transplant candidacy. Unfortunately, not a candidate due to vascular access issues as per Dr. Becerra's note. Ascites: diuretics, used to need large-volume paracentesis every 2 weeks, but has not in months SBP: No prior history Hepatic Hydrothorax: thoracentesis approximately 03/2024 Hepatic Encephalopathy: No prior history, has baseline tremor from stroke but does not appear to be asterixis Rejection history: none biopsy from 2021 with graft cirrhosis and recurrent PBC. Will defer liver biopsy with pressure measurements. Immunosuppression at admission: tacrolimus 0.5 mg twice daily Current immunosuppression: tacrolimus bid MELD 3.0: 14 at 09/03/2024 8:30 PM MELD-Na: 14 at 09/03/2024 8:30 PM Calculated from: Serum Creatinine: 1.25 mg/dL at 09/03/2024 8:30 PM Serum Sodium: 135 mmol/L at 09/03/2024 8:30 PM Total Bilirubin: 1.3 mg/dL at 09/03/2024 4:37 PM Serum Albumin: 3.6 g/dL (Using max of 3.5 g/dL) at 09/03/2024 4:37 PM INR(ratio): 1.2 at 09/03/2024 4:37 PM Age at listing (hypothetical): 68 years Sex: Female at 09/03/2024 8:30 PM Plan Continue tacrolimus Hold spironolactone iso hyperK Consider resuming lasix once MANDA gets better and BP improves Obtain records from [facility] Kathy Galloway MD CT 3 phase ordered outpatient 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 Becerra for ongoing management of her liver condition. 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 Developed rapid cirrhosis over the past few years following liver transplant. Was requiring weekly/10d paracenteses for ascites, but has not required this in several months. Declined at [facility] [place] redo [place] given concerns of vascular access, bilateral subclavian vein occlusions with question of SVC involvement as well. Referred to [facility] for opinion regarding transplant candidacy. Unfortunately, not a candidate due to vascular access issues as per Dr. Becerra's note. with relisting for transplantation declined due to vascular access issues. Complications: Varices: non-bleeding esophageal varices (Varices required banding 12/2022); Patient reported EGD done by Dr. Galloway at [facility] in 07/2024 but no records in chart Ascites: diuretics, used to need large-volume paracentesis every 2 weeks, but has not in months SBP: No prior history Hepatic Hydrothorax: thoracentesis approximately 03/2024 Hepatic Encephalopathy: No prior history, has baseline tremor from stroke but does not appear to be asterixis Rejection history: none, biopsy from 2021 with graft cirrhosis and recurrent PBC, Immunosuppression at admission: tacrolimus 0.5 mg BID -Continue tacrolimus 0.5mg BID -Restart spironolactone at reduced dose 50mg (from home dose 100mg) -Resume home Lasix 60mg daily -Procedure team contacted for bedside US to evaluate for ascites and paracentesis if indicated -Miralax and rifaximin ordered Assessment & Plan (09/04/2024 3:22 AM EDT): Home medication(s): tacrolimus 0.5 mg twice daily, lasix 60mg every day,aldactone 100mg every day, ursodiol 500mg bid Background: 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 Galloway at [facility] in 07/2024 but no records in chart Last EGD:Varices required banding 12/2022. Last Colonoscopy: 2019 which revealed Non-bleeding internal hemorrhoids. It Business Systems Analyst: Dr. Becerra (last appt. Was technically 09/03/24 but last note is from 06/18/24) Complications: now with recurrent portal HTN (? recurrent PBC) c/b refractory ascites initially requiring weekly paracenteses and non-bleeding varices. Declined at [facility] for redo transplant given concerns over vascular access in light of findings of bilateral subclavian vein occlusions with question of SVC involvement as well. Referred to [facility] for opinion regarding transplant candidacy. Unfortunately, not a candidate due to vascular access issues as per Dr. Becerra's note. Ascites: diuretics, used to need large-volume paracentesis every 2 weeks, but has not in months SBP: No prior history Hepatic Hydrothorax: thoracentesis approximately 03/2024 Hepatic Encephalopathy: No prior history, has baseline tremor from stroke but does not appear to be asterixis Rejection history: none biopsy from 2021 with graft cirrhosis and recurrent PBC. Will defer liver biopsy with pressure measurements. Immunosuppression at admission: tacrolimus 0.5 mg twice daily Current immunosuppression: tacrolimus bid MELD 3.0: 14 at 09/03/2024 8:30 PM MELD-Na: 14 at 09/03/2024 8:30 PM Calculated from: Serum Creatinine: 1.25 mg/dL at 09/03/2024 8:30 PM Serum Sodium: 135 mmol/L at 09/03/2024 8:30 PM Total Bilirubin: 1.3 mg/dL at 09/03/2024 4:37 PM Serum Albumin: 3.6 g/dL (Using max of 3.5 g/dL) at 09/03/2024 4:37 PM INR(ratio): 1.2 at 09/03/2024 4:37 PM Age at listing (hypothetical): 68 years Sex: Female at 09/03/2024 8:30 PM Plan Continue tacrolimus Hold spironolactone iso hyperK Consider resuming lasix once MANDA gets better and BP improves Obtain records from [facility] Kathy Galloway MD CT 3 phase ordered outpatient Resolved Problems Problem Noted Date Diagnosed Date Resolved Date Hyperkalemia 09/04/2024 09/05/2024 Assessment & Plan (09/04/2024 3:43 PM EDT): Praveena presented at the recommendation of her outpatient provider after labs showed hyperkalemia. Patient denied any recent changes in medications or diet, however did endorse decreased PO intake. Etiologies may include poor PO intake vs diuretic use. Patient was given 1L LR, albuterol, insulin and dextrose, and lokelma. EKG without peaked T waves, NSR. -Monitor BMP BID -Start Spironolactone 50mg daily (reduced from 100mg daily home dose) -Continue home lasix 40mg daily Assessment & Plan (09/04/2024 3:22 AM EDT): Rfaat presents with hyperkalemia and acute kidney injury (MANDA), likely due to hypovolemia and prerenal causes, exacerbated by limited oral intake and diuretic use. The patient was contacted to come to the ED after labs drawn earlier in the day, following a hepatology clinic visit, showed hyperkalemia. She is under the care of Dr. Becerra for ongoing management of her liver condition, with relisting for transplantation delayed due to vascular access issues. Over the past several months, she has experienced intermittent lightheadedness, particularly with ambulation, mild exertional dyspnea, minimal oral intake, and generalized weakness. These symptoms have been stable and unchanged over the last few days. She denies significant abdominal pain, urinary symptoms, leg swelling, chest pain, fevers, chills, or cough. Vital signs are stable. Treatment in the ED included 1 L of lactated Ringer's, an albuterol nebulizer, insulin with D50W, and Lokelma. The EKG did not show peaked T waves and indicated normal sinus rhythm. Laboratory results showed potassium levels decreasing from 6.7 to 6.3 to 5.1, and creatinine at 1.5, indicating MANDA. Monitor BMP bid Administer Lokelma daily. Collapse of right lung 09/04/202409/05 Assessment & Plan (09/04/2024 3:22 AM EDT): CT Chest 08/31/23: Moderate right pleural effusion, Minimal scattered mild ground-glass opacities likely representing edema, Near complete atelectasis of the right middle lobe Pt asymptomatic, on RA. Progressive atelectasis of the RML which has appeared to progress over time when reviewing CTA AP starting Partially Starting in September 2022. There is no definitve endobronchial lesion or obstruction causing the atelectasis and the proximal lumens of the RML are grossly patent. Noted no associated adenopathy. Patient noted to have history of Former tobacco use very limited and isolated as a teenager and Hx of breast cancer in the s/p surgical excision and radiation therapy on the right. Pulm bedside US 08/31: US Showing Pleural Effusions, the patient's consolidation is likely 2/2 pleural effusion especially with patient's history of prior thoracentesis which she was told was 2/2 cirrhosis (thus likely hepatic hydrothorax). Asymptomatic. No lesion on imaging. Neg PET. Seen by Pulmonology and given that no mass seen on imaging or PET bronch felt to be low yield. No further work up recommended. - Outpatient pulmonary follow up Encounters Date Type Department Care Team Description 12/23/2024 Telephone [facility] Transplant Department [address] [place] [address] Ida Coon RN 12/22/2024 7:29 AM EDT - 12/22/2024 11:59 PM EDT Hospital Encounter [facility] Ultrasound [address] [place] [address] Abdominal distention Discharge Disposition: Home or Self Care (01) 12/19/2024 Telephone [facility] Interventional Radiology [address] [place] [id number] Guillermina Luna, LASHANDA 12/18/2024 Refill [facility] Liver Transplant Services [address] [place] [address] Joycelyn Becerra MD 12/17/2024 Orders Only [facility] Gastroenterology Clinic [address] [place] [address] Academic Services Professional: Joycelyn Bolden MD 12/17/2024 Telephone [facility] Transplant Department [address] [place] [address] Ida Coon, LASHANDA 12/16/2024 Telephone [facility] Interventional Radiology [address] [place] [id number] Guillermina Luna, LASHANDA 12/15/2024 Orders Only [facility] Interventional Radiology [address] [place] [address] Cathryn Vaughan PA 12/15/2024 myChart Message [facility] Liver Transplant Services [address] [place] [address] Joycelyn Becerra MD Follow up to 12/10 call 12/13/2024 12:57 PM EDT - 12/13/2024 11:59 PM EDT Hospital Encounter [facility] [facility] [address] [place] [address] Abdominal distention Discharge Disposition: Home or Self Care () 12/11/2024 Telephone [facility] Transplant Department [address] [place] [address] Ida Coon RN 12/11/2024 Orders Only [facility] G[facility]ology [facility] [address] [place] [address] Academic Services Professional: Joycelyn Bolden MD Abdominal distention (Primary Dx) 12/11/2024 Telephone [facility] Transplant Department [address] [place] [address] Ida Coon RN 12/04/2024 11:38 AM EDT - 12/04/2024 11:59 PM EDT Hospital Encounter [facility] Xray [address] [place] [address] Shortness of breath Discharge Disposition: Home or Self Care () 12/04/2024 11:00 AM EDT Office Visit [facility] Cardiology at [facility] [address] [facility] [address] [place] [address] Nic Yen MD Shortness of breath (Primary Dx) 11/24/2024 myChart Message [facility] Liver Transplant Services [address] [place] [phone] Joycelyn Becerra MD Recent Lab Work 11/21/2024 Results Follow-Up [facility] Liver Transplant Services [address] [place] [phone] Ida Coon RN 11/08/2024 Refill [facility] [address] [place] [address] Academic Services Professional: Joycelyn Bolden MD Hepatic encephalopathy (HCC) 10/27/2024 Orders Only [facility] Transplant Department [address] [place] [phone] Ida Coon RN 10/27/2024 Orders Only [facility] Transplant Department [address] [place] [address] Ida Coon RN Liver replaced by transplant (HCC); Encounter for immunosuppression management after liver transplant (HCC); Cirrhosis of liver with ascites, unspecified hepatic cirrhosis type (HCC); Abdominal distention; Portal hypertension (HCC) 10/27/2024 Results Follow-Up [facility] Liver Transplant Services [address] [place] [address] [phone] Joycelyn Becerra MD 10/21/2024 Orders Only [facility] [address] [place] [phone] ProviderCathryn MD 10/21/2024 Telephone [facility] Transplant Department [address] [place] [phone] Ida Coon RN 10/20/2024 myChart Message [facility] [address] [place] [phone] Carin Starkey MD MRI results 10/20/2024 Telephone [facility] [address] [place] [address] [phone] Carin Starkey MD 10/19/2024 Orders Only External Imaging [address] [place] [address] Radiology, External 10/19/2024 Telephone [facility] [address] [place] [address] [phone] Lesvia Gutierrez MD 10/17/2024 Orders Only [facility] Neurology Clinic [address] [place] [phone] Provider, MD Cathryn 10/16/2024 8:30 AM EDT Office Visit [facility] Neurology Clinic [address] [place] [phone] Carin Starkey MD Tremor (Primary Dx); History of stroke; Abnormality of gait due to impairment of balance 10/14/2024 Results Follow-Up [facility] Liver Transplant Services [address] [place] [phone] Ida Coon RN 10/07/2024 Orders Only [facility] Transplant Department [address] [place] [phone] Ida Coon RN Liver replaced by transplant (HCC) (Primary Dx); Encounter for immunosuppression management after liver transplant (HCC); Portal hypertension (HCC); Abdominal distention 10/07/2024 [employer] Message [facility] Transplant Services [address] [place] [phone] Joycelyn Becerra MD Chest X-Ray Result 10/01/2024 Orders Only [facility] Transplant Department [address] [place] [phone] Ida Coon RN Liver replaced by transplant (HCC); Encounter for immunosuppression management after liver transplant (HCC); Cirrhosis of liver with ascites, unspecified hepatic cirrhosis type (HCC); Abdominal distention 09/28/2024 [employer] Message [facility] Liver Transplant Services [address] [place] [phone] Joycelyn Becerra MD Recent Inpt Hospitalization 09/25/2024 Telephone [facility] [address] [place] [phone] Amanda Augustin RN 09/24/2024 6:51 PM EDT - 09/26/2024 3:48 PM EDT Hospital Encounter [facility] [address] [place] [address] Don Cerda MD Devineni, Praveen, MD Duplan, Patrick A, MD Pleural effusion (Primary Dx); Liver replaced by transplant (HCC); Encounter for immunosuppression management after liver transplant (HCC); Cirrhosis of liver with ascites, unspecified hepatic cirrhosis type (HCC); Abdominal distention Discharge Disposition: Home or Self Care () 09/24/2024 6:07 PM EDT - 09/24/2024 6:50 PM EDT Hospital Encounter [facility] [address] [place] [address] Abdominal distention Discharge Disposition: Home or Self Care () from Last 3 Months Family History Medical History Relation Name Comments Stroke Mother Relation Name Status Comments Father Mother Social History Tobacco Use Types Packs/Day Years Used Date Smoking Tobacco: Former Cigarettes Smokeless Tobacco: Never Tobacco Cessation:Counseling Given: Not Answered Alcohol Use Standard Drinks/Week Comments Never 0 (1 standard drink = 0.6 oz pur e alcohol) [facility] Utilities Answer Date Recorded In the past 12 months has th e [employer], gas, oil, or water [employer] threatened to shut off services in your [...] EDT Inhaled Oxygen Concentration - - Weight 51.1 kg (112 lb 9.6 oz) 12/04/2024 10:31 AM EDT Height 149.9 cm (4' 11 ) 12/04/2024 10:31 AM EDT Body Mass Index 22.74 12/04/2024 10:31 AM EDT Plan of Treatment Upcoming Encounters Date Type Department Care Team (Late st Contact Info) Description 01/02/2025 10:00 AM EDT Appointment [facility]iology Ultrasound [address] [place] [address] 01/14/2025 8:00 AM EDT Office Visit [facility] [address] [place] [phone] Academic Services Professional: Uriel Garcia MD [address] [place] [phone] 01/14/2025 10:30 AM EDT Follow-Up [facility] Transplant Services [address] [place] [phone] Joycelyn Becerra MD [address] [place] [phone] 03/04/2025 11:00 AM EST Nutrition [facility] Transplant [facility] [address] [place] [phone] Joycelyn Becerra MD [address] [place] [phone] [facility] [place] 04/10/2025 3:30 PM EST Office Visit [facility] Clinic [address] [place] [phone] Ascencion Bowden MD [address] [place] [address] 04/23/2025 11:00 AM EST Office Visit [facility] Neurology Clinic [address] [place] [phone] Carin Starkey MD [address] [place] [phone] 10/14/2025 10:00 AM EDT Office Visit [facility] 10 [facility] Department [address] [place] [address] [place] [phone] Lupe Ron, MICHI [address] [place] [address] Health Maintenance Due Date Last Done Comments Cologuard 1954 Colon Cancer Screening 1954 Colonoscopy 1954 FOBT / Fit Test 1954 Sigmoidoscopy 1954 Medicare AWV 09/15/1955 Osteoporosis Screening 2004 Hepatitis B Vaccines (1 of 3 - Risk 3-dose series) 2014 Depression Screening and Follow-Up 04/02/2024 Health Care Proxy Review 04/02/2024 COVID-19 Vaccine (8 - Modern a risk season) 2024 12/21/2023, 12/29/2022, 03/16/2022, Additional history exists Influenza Vaccine (#1) 2024 , 12/29/2022, 01/12/2022, Additional history exists DTaP,Tdap,and Td Vaccines (3 - Td or Tdap) 05/20/2025 05/20/2015, 06/02/2011 [facility] ual Screening 09/03/2025 09/03/2024 CT Lung Cancer Screening (Baseline) 09/24/2025 09/24/2024, 08/31/2023, 08/31/2023 Basic Metabolic Panel 12/04/2025 12/04/2024 , 11/20/2024, 11/13/2024, Additional history exists Pneumococcal Vaccine: 50+ Years Completed 3, 03/12/2015 RSV Vaccine (60+ years old a nd patients) Completed 12/29/2022 Zoster Vaccines Completed 12/29/2022, 10/01, 06/03/2015 Hepatitis C Screening Completed 08/18/2023, 024 Alcohol/Substance Use Screening Completed 5 Procedures * Due to [place] state law, this organization might not be sharing negative HIV tests. Procedure Name Priority Date/Time Associated Diagnosis Comments US GUIDED PARACENTESIS ABDOMEN DIAGNOSTIC OR THERAPEUTIC Routine 12/22/2024 9:27 AM EDT Abdominal distention US LIVER SURVEILLANCE STAT 12/13/2024 1:20 PM EDT Abdominal distention XR CHEST 2 VW Routine 12/04/2024 12:05 PM EDT Shortness of breath COMPREHENSIVE METABOLIC PANEL Routine 12/04/2024 11:47 AM EDT Cirrhosis of liver with ascites, unspecified hepatic cirrhosis type (HCC) Hyperkalemia Primary biliary cholangitis (HCC) MAGNESIUM Routine 12/04/2024 11:47 AM EDT Cirrhosis of liver with ascites, unspecified hepatic cirrhosis type (HCC) Hyperkalemia Primary biliary cholangitis (HCC) CBC AUTO DIFFERENTIAL Routine 12/04/2024 11:47 AM EDT Cirrhosis of liver with ascites, unspecified hepatic cirrhosis type (HCC) Hyperkalemia Primary biliary cholangitis (HCC) TACROLIMUS LEVEL Routine 12/04/2024 11:4 7 AM EDT Cirrhosis of liver with ascites, unspecified hepatic cirrhosis type (HCC) Hyperkalemia Primary biliary cholangitis (HCC) ECG 12-LEAD Routine 12/04/2024 10:39 AM EDT Shortness of breath DIFFERENTIAL,MANUAL- [id number] Routine 11/20/2024 7:14 AM EDT TACROLIMUS LEVEL Routine 11/20/2024 7:14 AM EDT Liver replaced by transplant (HCC) Encounter for immunosuppression management after liver transplant (HCC) CBC AUTO DIFFERENTIAL Routine 11/20/2024 7:14 AM EDT Liver replaced by transplant (HCC) MAGNESIUM Routine 11/20/2024 7:14 AM EDT Liver replaced by transplant (HCC) COMPREHENSIVE METABOLIC PANEL Routine 11/20/2024 7:14 AM EDT Liver replaced by transplant (HCC) DIFFERENTIAL,MANUAL- [id number] Routine 11/13/2024 7:26 AM EDT TACROLIMUS LEVEL Routine 11/13/2024 7:26 AM EDT Liver replaced by transplant (HCC) Encounter for immunosuppression management after liver transplant (HCC) CBC AUTO DIFFERENTIAL Routine 11/13/2024 7:26 AM EDT Liver replaced by transplant (HCC) MAGNESIUM Routine 11/13/2024 7:26 AM EDT Liver replaced by transplant (HCC) COMPREHENSIVE METABOLIC PANEL Routine 11/13/2024 7:26 AM EDT Liver replaced by transplant (HCC) PLATELET [id number] Routine 11/06/2024 11:00 AM EDT TACROLIMUS LEVEL Routine 11/06/2024 11:0 0 AM EDT Liver replaced by transplant (HCC) Encounter for immunosuppression management after liver transplant (HCC) CBC AUTO DIFFERENTIAL Routine 11/06/2024 11:00 AM EDT Liver replaced by transplant (HCC) MAGNESIUM Routine 11/06/2024 11:00 AM EDT Liver replaced by transplant (HCC) COMPREHENSIVE METABOLIC PANEL Routine 11/06/2024 11:00 AM EDT Liver replaced by transplant (HCC) PLATELET [id number] Routine 10/30/2024 7:37 AM EDT TACROLIMUS LEVEL Routine 10/30/2024 7:37 AM EDT Liver replaced by transplant (HCC) Encounter for immunosuppression management after liver transplant (HCC) CBC AUTO DIFFERENTIAL Routine 10/30/2024 7:37 AM EDT Liver replaced by transplant (HCC) MAGNESIUM Routine 10/30/2024 7:37 AM EDT Liver replaced by transplant (HCC) COMPREHENSIVE METABOLIC PANEL Routine 10/30/2024 7:37 AM EDT Liver replaced by transplant (HCC) AMB EXTERNAL MRI BRAIN, OUTSIDE RESULT Routine 10/19/2024 2:23 PM EDT MRI BRAIN WO CONTRAST Routine 10/19/2024 8:30 AM EDT Tremor History of stroke AMB EXTERNAL MRI BRAIN, OUTSIDE RESULT Routine 10/17/2024 1:25 PM EDT AMB EXTERNAL CT HEAD, OUTSIDE RESULT Routine 10/17/2024 1:24 PM EDT DIFFERENTIAL,MANUAL- [id number] Routine 10/13/2024 7:25 AM EDT TACROLIMUS LEVEL Routine 10/13/2024 7:25 AM EDT Liver replaced by transplant (HCC) Encounter for immunosuppression management after liver transplant (HCC) CBC AUTO DIFFERENTIAL Routine 10/13/2024 7:25 AM EDT Liver replaced by transplant (HCC) MAGNESIUM Routine 10/13/2024 7:25 AM EDT Liver replaced by transplant (HCC) COMPREHENSIVE METABOLIC PANEL Routine 10/13/2024 7:25 AM EDT Liver replaced by transplant (HCC) TACROLIMUS LEVEL Routine 10/06/2024 7:13 AM EDT Liver replaced by transplant (HCC) Encounter for immunosuppression management after liver transplant (HCC) CBC AUTO DIFFERENTIAL Routine 10/06/2024 7:13 AM EDT Liver replaced by transplant (HCC) MAGNESIUM Routine 10/06/2024 7:13 AM EDT Liver replaced by transplant (HCC) COMPREHENSIVE METABOLIC PANEL Routine 10/06/2024 7:13 AM EDT Liver replaced by transplant (HCC) DIFFERENTIAL,MANUAL- [id number] Routine 09/29/2024 7:16 AM EDT TACROLIMUS LEVEL Routine 09/29/2024 7:16 AM EDT Liver replaced by transplant (HCC) Encounter for immunosuppression management after liver transplant (HCC) CBC AUTO DIFFERENTIAL Routine 09/29/2024 7:16 AM EDT Liver replaced by transplant (HCC) MAGNESIUM Routine 09/29/2024 7:16 AM EDT Liver replaced by transplant (HCC) COMPREHENSIVE METABOLIC PANEL Routine 09/29/2024 7:16 AM EDT Liver replaced by transplant (HCC) CBC AUTO DIFFERENTIAL Routine 09/26/2024 9:35 AM EDT XR CHEST 1 VW STAT 09/26/2024 8:00 AM EDT LAVENDER TOP Routine 09/26/2024 7:33 AM EDT EXTRA TUBES Routine 09/26/2024 7:33 AM EDT MYCOPLASMA PNEUMONIAE ANTIBODIES, IGG/IGM Routine 09/26/2024 6:33 AM EDT NON-GYNECOLOGIC CYTOLOGY - HERM[place]O ONLY Routine 09/25/2024 2:55 PM EDT Pleural effusion CELL COUNT W/DIFFERENTIAL, PLEURAL Routine 09/25/2024 2:55 PM EDT Pleural effusion PROTEIN, BODY FLUID Routine 09/25/2024 2 :55 PM EDT Pleural effusion LACTATE DEHYDROGENASE, BODY FLUID Routine 09/25/2024 2:55 PM EDT Pleural effusion GLUCOSE, BODY FLUID Routine 09/25/2024 2 :55 PM EDT Pleural effusion (DO NOT ORDER) ANAEROBIC CULTURE-QML Routine 09/25/2024 2:55 PM EDT Pleural effusion AEROBIC CULTURE W/GRAM STAIN Routine 09/25/2024 2:55 PM EDT Pleural effusion AEROBIC AND ANAEROBIC CULTURE W/GRAM STAIN Routine 09/25/2024 2:55 PM EDT Pleural effusion MYCOBACTERIA/AFB CULTURE AND STAIN Routine 09/25/2024 2:55 PM EDT Pleural effusion FUNGUS CULTURE W/STAIN Routine 09/25/2024 2:55 PM EDT Pleural effusion US GUIDED THORACENTESIS LEFT Routine 09/25/2024 2:52 PM EDT LEGIONELLA ANTIGEN, URINE STAT 09/25/2024 12:31 PM EDT ED/IP ONLY BLOOD CULTURE STAT 09/25/2024 11:38 AM EDT ED/IP ONLY BLOOD CULTURE STAT 09/25/2024 11:31 AM EDT US LOWER EXTREMITY VENOUS BILATERAL Routine 09/25/2024 8:12 AM EDT MANUAL DIFFERENTIAL Routine 09/25/2024 5 :11 AM EDT TICK BORNE DISEASE, ACUTE MOLECULAR [id number] Add-On 09/25/2024 5:11 AM EDT CBC AUTO DIFFERENTIAL Routine 09/25/2024 5:11 AM EDT BASIC METABOLIC PANEL Routine 09/25/2024 5:[address] CHEST PULMONARY EMBOLISM W CONTRAST STAT 09/24/2024 8:30 PM EDT XR CHEST 2 VW STAT 09/24/2024 8:13 PM EDT MANUAL DIFFERENTIAL STAT 09/24/2024 8 :00 PM EDT CBC AUTO DIFFERENTIAL STAT 09/24/2024 8:00 PM EDT RAPID COVID-19, FLU A, FLU B & RSV RNA PCR, SYMPTOMATIC (ED ONLY) STAT 09/24/2024 7:17 PM EDT D-DIMER, QUANTITATIVE STAT 09/24/2024 7:17 PM EDT MAGNESIUM STAT 09/24/2024 7:05 PM EDT PHOSPHORUS STAT 09/24/2024 7:05 PM EDT HEPATIC FUNCTION PANEL STAT 09/24/2024 7:05 PM EDT TROPONIN T HIGH SENSITIVITY Timed 09/24/2024 7:05 PM EDT N-TERMINAL PROBRAIN NATRIURETIC PEPTIDE STAT 09/24/2024 7:05 PM EDT BASIC METABOLIC PANEL STAT 09/24/2024 7:05 PM EDT ECG 12-LEAD STAT 09/24/2024 6:42 PM EDT US ABDOMEN SINGLE ORGAN Routine 09/24/2024 6:32 PM EDT Abdominal distention PATHOLOGY - SCANNED 09/24/2024 DIFFERENTIAL,MANUAL- [id number] Routine 09/22/2024 7:17 AM EDT TACROLIMUS LEVEL Routine 09/22/2024 7:17 AM EDT Liver replaced by transplant (HCC) Encounter for immunosuppression management after liver transplant (HCC) CBC AUTO DIFFERENTIAL Routine 09/22/2024 7:17 AM EDT Liver replaced by transplant (HCC) MAGNESIUM Routine 09/22/2024 7:17 AM EDT Liver replaced by transplant (HCC) COMPREHENSIVE METABOLIC PANEL Routine 09/22/2024 7:17 AM EDT Liver replaced by transplant (HCC) from Last 3 Months Results * Due to [place] state law, this organization might not be [...] available for assistance throughout the entire procedure. CHIEF CLERK: Twin Carlos NP SEDATION: None GUIDANCE: Ultrasound. [...] Becerra MD IMG US PROCEDURES Final Result * US Liver Surveillance (12/13/2024 1:20 PM EDT) Anatomical Region Laterality Modality Body N/A Ultrasound 12/13/2024 3:11 PM EDT Impressions 12/13/2024 3:13 PM EDT 1. Cirrhosis without focal liver lesion. 2. Moderate volume ascites, the largest pocket in the right lower quadrant. 3. Additional findings include moderate splenomegaly and bilateral pleural effusions. Ultrasound visualization score: VIS-B: Limitations may obscure small (<10 mm) observations. E.g. parenchymal heterogeneity that may impact the detection of small (<10 mm) observations, moderate beam attenuation or shadowing, some portions (<50%) of liver or diaphragm not visualized. US LI-RADS Category US-1: Negative, no ultrasound evidence for HCC. Follow-up LI-RADS surveillance US recommended in 6 months. Ultrasound LI-RADS 2023: [email or web address] [email or web address] If this radiology report contains a blank impression section, it is an incomplete radiology report. Please contact the interpreting radiologist or applicable radiology division as soon as possible to obtain the completed interpretation. Workstation ID: [id number] Narrative 12/13/2024 3:13 PM EDT EXAMINATION: Limited ultrasound of the abdomen (for surveillance of chronic liver disease). INDICATION: Cirrhosis with abdominal distention, evaluate for ascites. TECHNIQUE: Limited ultrasound evaluation of the abdomen. Multiple grayscale and color Doppler images were obtained. COMPARISON: None available. FINDINGS: LIVER: Cirrhotic liver morphology with coarsened hepatic parenchymal echotexture. No focal lesions. The portal vein is patent on color Doppler with hepatopetal flow. BILIARY: Surgically absent gallbladder. The common bile duct measures 2 mm. PERITONEUM: There is moderate volume ascites, the largest pocket in the right lower quadrant. SPLEEN: Splenomegaly to 17.2 cm. Bilateral pleural effusions noted. Resulting Agency Comment [id number] Procedure Note Warren Andre MD - 12/13/2024 EXAMINATION: Limited ultrasound of the abdomen (for surveillance ofchronic liver disease). INDICATION: Cirrhosis with abdominal distention, evaluate for ascites. TECHNIQUE: Limited ultrasound evaluation of the abdomen. Multiplegrayscale and color Doppler images were obtained. COMPARISON: None available. FINDINGS: LIVER: Cirrhotic liver morphology with coarsened hepatic parenchymalechotexture. No focal lesions. The portal vein is patent on color Dopplerwith hepatopetal flow. BILIARY: Surgically absent gallbladder. The common bile duct measures 2mm. PERITONEUM: There is moderate volume ascites, the largest pocket in theright lower quadrant. SPLEEN: Splenomegaly to 17.2 cm. Bilateral pleural effusions noted. IMPRESSION: 1. Cirrhosis without focal liver lesion. 2. Moderate volume ascites, the largest pocket in the right lowerquadrant. 3. Additional findings include moderate splenomegaly and bilateral pleuraleffusions. Ultrasound visualization score: VIS-B: Limitations may obscure small (<10mm) observations. E.g. parenchymal heterogeneity that may impact thedetection of small (<10 mm) observations, moderate beam attenuation orshadowing, some portions (<50%) of liver or diaphragm not visualized. US LI-RADS Category US-1: Negative, no ultrasound evidence for HCC.Follow-up LI- RADS surveillance US recommended in 6 months. Ultrasound LI-RADS 2023: [email or web address] [email or web address] [email or web address]://[email or web address] If this radiology report contains a blank impression section, it is anincomplete radiology report. Please contact the interpreting radiologistor applicable radiology division as soon as possible to obtain thecompleted interpretation. Workstation ID: [id number] us Joycelyn Becerra MD IMG US PROCEDURES Final Result * XR Chest 2 vw. Standard (12/04/2024 12:05 PM EDT) Only the most recent of2 resultswithin the time period is included. Anatomical Region Laterality Modality Body Computed Radiogr aphy 12/04/2024 3:00 PM EDT Impressions 12/04/2024 3:06 PM EDT Interval development sizable bilateral pleural effusions larger on the left. Heart size top normal. Otherwise negative. If this radiology report contains a blank impression section, it is an incomplete radiology report. Please contact the interpreting radiologist or applicable radiology division as soon as possible to obtain the completed interpretation. Workstation ID: [id number] Narrative 12/04/2024 3:06 PM EDT COMPARISON: 09/26/2024 FINDINGS AND Resulting Agency Comment [id number] Procedure Note Serge Crowell MD - 12/04/2024 COMPARISON: 09/26/2024 FINDINGS AND IMPRESSION: Interval development sizable bilateral pleural effusions larger on theleft. Heart size top normal. Otherwise negative. If this radiology report contains a blank impression section, it is anincomplete radiology report. Please contact the interpreting radiologistor applicable radiology division as soon as possible to obtain thecompleted interpretation. Workstation ID: [id number] Nic Yen MD IMG XR PROCEDURES Final Res ult * (ABNORMAL) CBC Auto Differential (12/04/2024 11:47 AM EDT) Only the most recent of12 resultswithin the time period is included. WBC 5.4 3.8 - 10.8 10*3/uL 12/04/2024 11:57 AM EDT [facility] RBC 3.62(L) 3.80 - 5.10 10*6/uL 12/04/2024 11:57 AM EDT [facility] Hemoglobin 9.9(L) 11.7 - 15.5 g/dL 12/04/2024 11:57 AM EDT [facility] Hematocrit 31.8(L) 35.0 - 45.0 % 12/04/2024 11:57 AM EDT [facility] MCV 87.8 80.0 - 100.0 fL 12/04/2024 11:57 AM EDT [facility] MCH 27.3 27.0 - 33.0 pg 12/04/2024 11:57 AM EDT [facility] MCHC 31.1(L) 32.0 - 36.0 g/dL 12/04/2024 11:57 AM EDT [facility] RDW 16.3(H) 11.0 - 15.0 % 12/04/2024 11:57 AM EDT [facility] Platelets 120(L) 140 - 400 10*3/uL 12/04/2024 11:57 AM EDT [facility] MPV 10.6 7.5 - 12.5 fL 12/04/2024 11:57 AM EDT [facility] Neutrophil % 71.4 % 12/04/2024 11:57 AM EDT [facility] Immature Grans % 0.2 0.0 - 0.9 % 12/04/2024 11:57 AM EDT [facility] Lymphocyte % 11.2 % 12/04/2024 11:57 AM EDT [facility] Monocyte % 14.2 % 12/04/2024 11:57 AM EDT [facility] Eosinophil % 2.4 % 12/04/2024 11:57 AM EDT [facility] Basophil % 0.6 % 12/04/2024 11:57 AM EDT [facility] Neutrophil # 3.83 1.50 - 7.80 10*3/uL 12/04/2024 11:57 AM EDT [facility] Immature Grans # <0.03 <=0.03 10*3/uL 12/04/2024 11:57 AM EDT [facility] Lymphocyte # 0.60(L) 0.85 - 3.90 10*3/uL 12/04/2024 11:57 AM EDT [facility] Monocyte # 0.80 0.20 - 0.95 10*3/uL 12/04/2024 11:57 AM EDT [facility] Eosinophil # 0.10 0.02 - 0.50 10*3/uL 12/04/2024 11:57 AM EDT [facility] Basophil # <0.03 0.00 - 0.20 10*3/uL 12/04/2024 11:57 AM EDT [facility] nRBC % 0.0 /100 WBCs 12/04/2024 11:57 AM EDT [facility] nRBC # <0.01 <0.01 10*3/uL 12/04/2024 11:57 AM EDT [facility] Blood Structure of peripheral vein / Unknown Venipuncture / Unknown 12/04/2024 11:47 AM EDT 12/04/2024 11:47 AM EDT us Joycelyn Becerra MD LAB BLOOD ORDERABLES Final Resul t [facility] [address] [place] [address], * (ABNORMAL) Tacrolimus Level (12/04/2024 11:47 AM EDT) Only the most recent of9 resultswithin the time period is included. Pathologist [facility] Tacrolimus, Highly Sensitive 4.1(L) mcg/L 12/05/2024 9:32 AM EDT [facility] Comment: No definitive therapeutic or toxic ranges have been established. Optimal blood drug levels are influenced by type of transplant, patient response, time post- transplant, co-administration of other drugs, and drug formulation. The following trough range is a suggested guideline: 5.0-20.0 mcg/L. This test was developed and its analytical performance characteristics have been determined by [employer]. It has not been cleared or approved by the FDA. This assay has been validated pursuant to the CLIA regulations and is used for clinical purposes. Blood Structure of peripheral vein / Unknown Venipuncture / Unknown 12/04/2024 11:47 AM EDT 12/04/2024 11:47 AM EDT Narrative [facility] 12/05/2024 9:32 AM EDT [facility] Received Date:[id number] Joycelyn Becerra MD LAB BLOOD ORDERABLES Final Resul t Performing Organization Address [facility] de Phone Number [facility] [address], [place] [address], [place] [phone] [employer] [facility] [address], [place] [address], [place] [phone] * Magnesium (12/04/2024 11:47 AM EDT) Only the most recent of10 resultswithin the time period is included. Pathologist [facility] MG 1.9 1.6 - 2.4 mg/dL 12/04/2024 12:25 PM EDT [facility] Blood Structure of peripheral vein / Unknown Venipuncture / Unknown 12/04/2024 11:47 AM EDT 12/04/2024 11:47 AM EDT Joycelyn Becerra MD LAB BLOOD ORDERABLES Final Resul t Performing Organization Address City/[facility]/ZIP Co de Phone Number [facility] [address] [place] [address], * (ABNORMAL) Comprehensive Metabolic Panel (12/04/2024 11:47 AM EDT) Only the most recent of9 resultswithin the time period is included. NA 139 135 - 145 mmol/L 12/04/2024 12:25 PM EDT [facility] K 4.8 3.5 - 5.3 mmol/L 12/04/2024 12:25 PM EDT [facility] Cl 108(H) 98 - 107 mmol/L 12/04/2024 12:25 PM EDT [facility] CO2 20(L) 22 - 32 mmol/L 12/04/2024 12:25 PM EDT [facility] Anion Gap 11 5 - 15 12/04/2024 12:25 PM EDT [facility] Glucose 115(H) 65 - 99 mg/dL 12/04/2024 12:25 PM EDT [facility] Creatinine 0.93 0.50 - 1.20 mg/dL 12/04/2024 12:25 PM EDT [facility] Calcium 8.7 8.6 - 10.5 mg/dL 12/04/2024 12:25 PM EDT [facility] Total Protein 7.1 6.0 - 8.0 g/dL 12/04/2024 12:25 PM EDT [facility] Albumin 3.6 3.5 - 5.2 g/dL 12/04/2024 12:25 PM EDT [facility] Bilirubin, Total 1.3(H) 0.2 - 1.2 mg/dL 12/04/2024 12:25 PM EDT [facility] Alkaline Phosphatase 172(H) 35 - 129 U/L 12/04/2024 12:25 PM EDT [facility] AST 30 10 - 40 U/L 12/04/2024 12:25 PM EDT [facility] ALT 24 10 - 40 U/L 12/04/2024 12:25 PM EDT [facility] BUN 21 7 - 23 mg/dL 12/04/2024 12:25 PM EDT [facility] eGFR 66 >=60 mL/min/1. 73m2 12/04/2024 12:25 PM EDT [facility] Comment:The estimated glomer ular filtration rate (eGFR) is calculated using a new formula developed by the NKF-ASN task force to eliminate race-based correction factors. The new formula uses serum/plasma creatinine, age, and gender to determine eGFR. A value below 60mls/min might indicate kidney disease and will be flagged. For additional information, see Richardson et al, Am J Kidney Dis. 2021;79(2):268- 288, A Unifying Approach for GFR estimation: Recommendations of the NKF-ASN Task Force on Reassessing the Inclusion of Race in Diagnosing Kidney Disease . Globulin, Total 3.5 2.1 - 4.2 g/dL 12/04/2024 12:25 PM EDT [facility] A/G Ratio 1.0(L) 1.5 - 3.0 12/04/2024 12:25 PM EDT [facility] Blood Structure of peripheral vein / Unknown Venipuncture / Unknown 12/04/2024 11:47 AM EDT 12/04/2024 11:47 AM EDT us Joycelyn Becerra MD LAB BLOOD ORDERABLES Final Resul t [facility] [address] [place] [address], * ECG 12 lead (12/04/2024 10:39 AM EDT) Only the most recent of2 resultswithin the time period is included. Ventricular Rate EKG 92 BPM MUSE EKG Atrial Rate 92 BPM MUSE EKG MT Interval 146 ms MUSE EKG QRS Interval 58 ms MUSE EKG QT Interval 344 ms MUSE EKG QTC Interval 425 ms MUSE EKG P Dawson 45 degrees MUSE EKG R Dawson 25 degrees MUSE EKG T Wave Dawson 24 degrees MUSE EKG 12/04/2024 10:3 9 AM EDT 12/04/2024 1:43 PM EDT Impressions MUSE EKG - 12/04/2024 1:43 PM EDT Normal sinus rhythm Low voltage QRS Possible Septal infarct , age undetermined Abnormal ECG Confirmed by Nic Yen ([id number]) on 12/04/2024 1:43:42 PM Narrative Procedure Note Nic Yen MD - 12/04/2024 IMPRESSION: Normal sinus rhythm Low voltage QRS Possible Septal infarct , age undetermined Abnormal ECG Confirmed by Nic Yen ([id number]) on 12/04/2024 1:43:42 PM us Nic Yen MD ECG ORDERABLES Final Resul t MUSE EKG * (ABNORMAL) Differential, Manual (11/20/2024 7:14 AM EDT) Only the most recent of5 resultswithin the time period is included. Absolute Neutrophils 2,144 1,500 - 7,800 cells/uL 11/21/2024 5:50 AM EDT [facility] Absolute Band Neutrophils 96 0 - 750 cells/uL 11/21/2024 5:50 AM EDT [employer] [facility] Absolute Myelocytes 32(H) 0 cells/uL 11/21/2024 5:50 AM EDT [facility] Absolute Lymphocytes 480(L) 850 - 3,900 cells/uL 11/21/2024 5:50 AM EDT [facility] Absolute Monocytes 288 200 - 950 cells/uL 11/21/2024 5:50 AM EDT [facility] Absolute Eosinophils 128 15 - 500 cells/uL 11/21/2024 5:50 AM EDT [facility] Absolute Basophils 32 0 - 200 cells/uL 11/21/2024 5:50 AM EDT [facility] Neutrophils 67.0 % 11/21/2024 5:50 AM EDT [facility] Band Neutrophils 3.0 % 11/21/2024 5:50 AM EDT [facility] Myelocytes 1.0(H) % 11/21/2024 5:50 AM EDT [employer] [facility] Lymphocytes 15.0 % 11/21/2024 5:50 AM EDT [employer] [facility] Monocytes 9.0 % 11/21/2024 5:50 AM EDT [facility] Eosinophils 4.0 % 11/21/2024 5:50 AM EDT [employer] [facility] Basophils 1.0 % 11/21/2024 5:50 AM EDT [employer] [facility] Note See Comments 11/21/2024 5:50 AM EDT [employer] [facility] Comment: Although an automated CBC was ordered, our instrumentation detected an abnormality on your patient's specimen requiring us to perform a manual review. 11/20/2024 7:14 AM EDT 11/20/2024 7:14 AM EDT Narrative [facility] - 11/21/2024 8:21 PM EDT FASTING:NO CONTACT HISTORY: DATE TIME CONTACT 11/21/2024 8:19 PM TEST NAME ACTION TAKEN See SF Joycelyn Becerra MD LAB BLOOD ORDERABLES Final Resul t [facility] [address] [facility] 3rd Floor, [place] [address], [place] [phone] [employer] [facility] [address] [place] [address] * (ABNORMAL) Platelet Estimation (11/06/2024 11:00 AM EDT) Only the most recent of2 resultswithin the time period is included. Platelet Estimation DECREASED (A) ADEQUATE 11/07/2024 1:03 AM EDT [employer] [facility] 11/06/2024 11:0 0 AM EDT 11/06/2024 11:01 AM EDT Joycelyn Becerra MD LAB BLOOD ORDERABLES Final Resul t [facility] [address] [facility] [address]rd Floor, [place] [address], [place] [phone] [facility] [address] [place] [address] * MRI Brain, Outside Result (10/19/2024 2:23 PM EDT) Anatomical Region Laterality Modality Other us Unknown Provider AMB EXTERNAL RESULT PROCEDUR ES Final Result * MRI brain without contrast (10/19/2024 8:30 AM EDT) Anatomical Region Laterality Modality Head and Neck Magnetic Resonan ce 10/19/2024 8:10 AM EDT Narrative 10/19/2024 10:04 AM EDT [facility] Accession Number: [id number] Patient Name: Praveena Douglass Date of : 1955 Date of Exam: 10-19-2024 Referring Physician: Carin Starkey [facility] [address] [place] [address] Exam: MR Brain (C-) CPT 62399 Room Description: [facility] 3T MR Brain (C-) CPT 56685 INDICATION: history of strokes, worsening tremor, balance, and cognition TECHNIQUE: Multiplanar, multisequence MRI of the brain was performed without contrast. COMPARISON: No prior FINDINGS: BRAIN and EXTRA-AXIAL SPACES: The midline structures, including sella, corpus callosum, and craniocervical junction, are unremarkable. There is no midline shift or effacement of the basal cisterns. On diffusion weighted imaging, there are no regions of restricted diffusion to indicate an acute or subacute infarct. There is no evidence of intraparenchymal hemorrhage on susceptibility sensitive sequence. Mild scattered foci of T2 prolongation are seen in the white matter. There are bilateral supratentorial holohemispheric subdural hemorrhages with slightly different signal intensity indicating evolving hemorrhage of different ages, the left subdural hemorrhage measures up to 13 mm at its maximum thickness while the right subdural hemorrhage measures up to 11 mm at its maximum thickness. There is minimal mass effect upon the adjacent brain parenchyma. There is minimal subdural hemorrhage in there interhemispheric fissure. Minimal subdural hemorrhage also layering in the bilateral tentorium cerebelli. Ventricles, cisterns, and sulci are otherwise normal in size and configuration, without hydrocephalus. Meningeal surfaces are otherwise unremarkable. Major intracranial flow voids are present. EXTRACRANIAL SOFT TISSUES: There have been lens replacements bilaterally. 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 BONES: There is mild anterolisthesis of C3 on C4. Otherwise, the bone marrow signal is unremarkable. IMPRESSION: Findings are most consistent with small bilateral subdural hemorrhages, left greater than right, resulting in minimal mass effect upon the adjacent brain parenchyma without midline shift or hydrocephalus at this time. No acute/subacute infarct or intraparenchymal hemorrhage. After 2 unsuccessful attempts to contact the referring clinician, I spoke to the patient and the patient was instructed to go directly to the [facility] emergency department for further evaluation including a neurosurgical consultation. The emergency department was also contacted by Dr. Pacheco, resident electronic integrated systems mechanic, and Dr. Jamari Gregory was informed of these findings. Electronically Signed By: Sharri Oneil MD Procedure Note Provider, Rose - 10/19/2024 [facility] Accession Number: [id number] Patient Name: Praveena Douglass Date of : 1955 Date of Exam: 10-19-2024 Referring Physician: Carin Starkey [facility] Neu[facility] Clinic [address] [place] [address] Exam: MR Brain (C-) CPT 23532 [facility] 20903 INDICATION: history of strokes, worsening tremor, balance, and cognition TECHNIQUE: Multiplanar, multisequence MRI of the brain was performed without contrast. COMPARISON: No prior FINDINGS: BRAIN and EXTRA-AXIAL SPACES: The midline structures, including sella, corpus callosum, and craniocervical junction, are unremarkable. There is no midline shift or effacement of the basal cisterns. On diffusion weighted imaging, there are no regions of restricted diffusion to indicate an acute or subacute infarct. There is no evidence of intraparenchymal hemorrhage on susceptibility sensitive sequence. Mild scattered foci of T2 prolongation are seen in the white matter. There are bilateral supratentorial holohemispheric subdural hemorrhages with slightly different signal intensity indicating evolving hemorrhage of different ages, the left subdural hemorrhage measures up to 13 mm at its maximum thickness while the right subdural hemorrhage measures up to 11 mm at its maximum thickness. There is minimal mass effect upon the adjacent brain parenchyma. There is minimal subdural hemorrhage in there interhemispheric fissure. Minimal subdural hemorrhage also layering in the bilateral tentorium cerebelli. Ventricles, cisterns, and sulci are otherwise normal in size and configuration, without hydrocephalus. Meningeal surfaces are otherwise unremarkable. Major intracranial flow voids are present. EXTRACRANIAL SOFT TISSUES: There have been lens replacements bilaterally. 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 BONES: There is mild anterolisthesis of C3 on C4. Otherwise, the bone marrow signal is unremarkable. IMPRESSION: Findings are most consistent with small bilateral subdural hemorrhages, left greater than right, resulting in minimal mass effect upon the adjacent brain parenchyma without midline shift or hydrocephalus at this time. No acute/subacute infarct or intraparenchymal hemorrhage. After 2 unsuccessful attempts to contact the referring clinician, I spoke to the patient and the patient was instructed to go directly to the [facility] emergency department for further evaluation including a neurosurgical consultation. The emergency department was also contacted by Dr. Pacheco, resident electronic integrated systems mechanic, and Dr. Jamari Gregory was informed of these findings. Electronically Signed By: Sharri Oneil MD us Carin Starkey MD IMG MRI PROCEDURES Final Res ult * MRI Brain, Outside Result (10/17/2024 1:25 PM EDT) Anatomical Region Laterality Modality Other us Unknown Provider AMB EXTERNAL RESULT PROCEDUR ES Final Result * CT Head, Outside Result (10/17/2024 1:24 PM EDT) Anatomical Region Laterality Modality Other us Unknown Provider AMB EXTERNAL RESULT PROCEDUR ES Final Result * X-Ray Chest 1 View (09/26/2024 8:00 AM EDT) Anatomical Region Laterality Modality Body Radiographic Dianne ging 09/28/2024 7:41 AM EDT Impressions 09/28/2024 7:42 AM EDT Interval clearing/removal most of the pleural fluid on the left. Trace residual remains with minor atelectasis remaining at both lung bases. Heart size normal. No pneumothorax. If this radiology report contains a blank impression section, it is an incomplete radiology report. Please contact the interpreting radiologist or applicable radiology division as soon as possible to obtain the completed interpretation. Workstation ID: [id number] Narrative 09/28/2024 7:42 AM EDT COMPARISON: 09/24/2024 FINDINGS AND Resulting Agency Comment [id number] Procedure Note Serge Crowell MD - 09/28/2024 COMPARISON: 09/24/2024 FINDINGS AND IMPRESSION: Interval clearing/removal most of the pleural fluid on the left. Traceresidual remains with minor atelectasis remaining at both lung bases.Heart size normal. No pneumothorax. If this radiology report contains a blank impression section, it is anincomplete radiology report. Please contact the interpreting radiologistor applicable radiology division as soon as possible to obtain thecompleted interpretation. Workstation ID: [id number] Raul White MD IMG XR PROCEDURES Final Resu lt * Lavender Top (09/26/2024 7:33 AM EDT) Extra Tube Hold for add-ons. 09/26/2024 12:05 PM EDT [facility] Comment:Auto resulted. Blood Structure of peripheral vein / Unknown 09/26/2024 7:33 AM EDT 09/26/2024 7:33 AM EDT us Raul White MD LAB BLOOD ORDERABLES Final R esult [facility] [address] [place] [address] [address] [place] [address], [place] [phone] * (ABNORMAL) Mycoplasma pneumoniae Antibodies, IgG/IgM (09/26/2024 6:33 AM EDT) M. pneumoniae Ab, IgG 2.67(H) <=0.90 10/01/2024 1:49 PM EDT [facility]) Comment: Reference Range: <=0.90 Negative 0.91-1.09 Equivocal >=1.10 Positive A positive IgG result indicates that the patient has antibody to Mycoplasma. It does not differentiate between an active or past infection. The clinical diagnosis must be interpreted in conjunction with the clinical signs and symptoms of the patient. M. pneumoniae Ab, IgM 225 <770 U/mL 10/01/2024 1:49 PM EDT [facility] Comment: Reference Range: <770 U/ml Negative 770-950 U/mL Low positive >950 U/mL Positive A positive IgM antibody result is consistent with recent infection. However, a negative result does not necessarily rule out recent infection as some individuals may not mount another IgM response, if previously infected. A positive IgM antibody result with or without a positive IgG antibody result, is consistent with recent infection. However, a negative result does not necessarily rule out recent infection as some individuals may not mount another IgM response, if previously infected. A positive IgG antibody result in the absence of a positive IgM antibody result, indicates that the patient has antibody to Mycoplasma. It does not differentiate between an active or past infection. The clinical diagnosis must be interpreted in conjunction with the clinical signs and symptoms of the patient. Blood Structure of peripheral vein / Unknown Venipuncture / Unknown 09/26/2024 6:33 AM EDT 09/26/2024 7:31 AM EDT Narrative [facility] - 10/01/2024 1:49 PM EDT [facility] Received Date: us Raul White MD LAB BLOOD ORDERABLES Final R esult [facility] [address] [place] [address] [address]rd Floor, [place] [address], [facility]) [address] [place] [address], [place] * Non-Gynecologic Cytology - [place] only (09/25/2024 2:55 PM EDT) Non-Gynecologic Cytology Result SEE DETAILS 09/29/2024 12:00 AM EDT [facility] Comment: FINAL DIAGNOSIS Pleural fluid, left (cytology and cell block): Negative for malignant cells. Ida Harris M.D. Electronic Signature: 09/29/2024 18:23 Screened by: BERT Mitchell (ASCP) Clinical History [id number], left pleural effusion Microscopic Description Examination of monolayer preparation slide and cell block slides show benign mesothelial cells, macrophages, and inflammatory cells. The mucin stain on the cell block is negative with appropriate control. Macroscopic Description Received fresh are 3 cc of cloudy yellow fluid from which a liquid based cyto-preparation and cell block are made. Grossing and technical work performed at [facility] ([facility], [address] [place] [address]; ; [id number]; CLIA #[id number]) All professional pathology services performed at [facility] ([address] [place] [address]; ; CLIA #[id number]) Note: Some or all of the tests utilized in this case may be laboratory developed tests (LDT's) and may use class I analyte specific reagents (ASR). These tests were developed for clinical purposes and their performance characteristics determined by [facility] on tissue fixed in 10% neutral buffered formalin. Other fixatives have not been validated, and therefore results on tissue with such fixation should be interpreted with caution and in the clinical context. [facility] are qualified under the CLIA 1988 documents to provide high-complexity clinical laboratory testing. All controls are reviewed and deemed appropriate. Pleural Fluid Structure of left half of chest wall / Unknown Non-Blood Collection / Unknown 09/25/2024 2:55 PM EDT 09/25/2024 3:12 PM EDT Comment:LT pleural fluid us Tr Aguillon [facility] PATH/CYTO (IBERIA) Final Result [facility] [address] [place] [address], [place] * (ABNORMAL) Cell Count w/Differential, Pleural (09/25/2024 2:55 PM EDT) Color, Pleural Straw Colorles s, Yellow, Straw 09/25/2024 3:25 PM EDT [facility] Appearance, Pleural Cloudy(A) Clear 09/25 3:25 PM EDT [facility] TNC/WBC, Pleural 1,445(H) <=250 cells/mm 3 09/25/2024 3:25 PM EDT [facility] Mononuclear %, Body Fluid 92.1 % 09/25/2024 3:25 PM EDT [facility] Polymorphonuclear %, Body Fluid 7.9 % 09/25/2024 3:25 PM EDT [facility] Mononuclear #, Body Fluid 776 x1000 09/25/2024 3:25 PM EDT [facility] Polymorphonuclear #, Body Fluid 67 x1000 09/25/2024 3:25 PM EDT [facility] Pleural Fluid Structure of left half of chest wall / Unknown 09/25/2024 2:55 PM EDT 09/25/2024 3:12 PM EDT Comment:LT pleural fluid Narrative [facility] - 09/25/2024 3:25 PM EDT The reference intervals and other method performance specifications are unavailable for this body fluid. Comparison of the result with concentration in the blood, serum or plasma is recommended. us Tr Aguillon [facility] BODY FLUIDS AND STOOLS ORDER GLORIA Final Result [facility] [address] [facility] [address] [place] [address], [place] [phone] * Anaerobic Culture (09/25/2024 2:55 PM EDT) Anaerobic Culture No anaerobes isolated. [facility] 09/28/2024 8:18 AM EDT [facility] Pleural Fluid Structure of left half of chest wall / Unknown 09/25/2024 2:55 PM EDT Comment:LT pleural fluid us Tr Pimentelashley [facility] MICROBIOLOGY - GENERAL ORDER GLORIA Final Result Performing Organization Address [facility] Co de Phone Number [facility] [address] [address], [place] [phone] * Aerobic Culture w/Gram Stain (09/25/2024 2:55 PM EDT) Aerobic Culture No growth after 3 days [facility] 09/28/2024 8:18 AM EDT [facility] Gram Stain Result Rare White Blood Cells Seen 09/28/2024 8:18 AM EDT [facility] Gram Stain Result No organisms seen 09/28/2024 8:18 AM EDT [facility] Pleural Fluid Structure of left half of chest wall / Unknown 09/25/2024 2:55 PM EDT Comment:LT pleural fluid Tr Aguillon NP LAB MICROBIOLOGY - GENERAL ORDER GLORIA Final Result Performing Organization Address [facility] Co de Phone Number [facility] [address] [address], [place] [phone] * Mycobacteria/AFB Culture and Stain (09/25/2024 2:55 PM EDT) Culture No Mycobacterium species isolated after 8 weeks incubation. 11/21/2024 2:36 PM EDT [employer] [facility] AFB Stain No acid-fast bacilli seen using the fluorochrome method. 11/21/2024 2:36 PM EDT [facility] Pleural Fluid Structure of left half of chest wall / Unknown 09/25/2024 2:55 PM EDT 09/25/2024 3:12 PM EDT Comment:LT pleural fluid Narrative [facility] - 11/21/2024 2:36 PM EDT [facility] Received Date: MICRO NUMBER: [id number] SPECIMEN QUALITY: Adequate SOURCE: PLEURAL FLUID CHEST, LEFT STATUS: FINAL us Tr Aguillon NP LAB MICROBIOLOGY - GENERAL ORDER GLORIA Final Result Performing Organization Address City/[facility]/ZIP Co de Phone Number IDA JACKSON [address] [facility] 3[address], [place] [address], [place] [phone] [facility] [address], [place] [address], [place] [phone] * Fungus Culture w/SAROJ Stain (09/25/2024 2:55 PM EDT) Culture No fungal growth at 4 Weeks 10/24/2024 8:45 AM EDT [employer] [facility] SAROJ Stain No Fungal Elements Seen 10/24/2024 8:45 AM EDT [facility] Pleural Fluid Structure of left half of chest wall / Unknown 09/25/2024 2:55 PM EDT 09/25/2024 3:12 PM EDT Comment:LT pleural fluid Narrative IDA JACKSON - 10/24/2024 8:45 AM EDT [facility] Received Date: MICRO NUMBER: [id number] SPECIMEN QUALITY: Adequate SOURCE: PLEURAL FLUID CHEST, LEFT STATUS: FINAL us Tr Aguillon NP LAB MICROBIOLOGY - GENERAL ORDER GLORIA Final Result Performing Organization Address City/[facility]/ZIP Co de Phone Number [facility] [address] [facility] [address], [place] [address], [place] [phone] [facility] [address], [place] [address], [place] [phone] * Protein, Body Fluid (09/25/2024 2:55 PM EDT) Protein, Fluid 2.9 g/dL 09/25/2024 8:51 PM EDT [facility] Comment: No reference range available. This test was developed and its performance characteristics determined by [facility] Clinical Labs. [facility] has not approved or cleared this test. FDA clearance or approval is not currently required for clinical use. The results are not intended to be used as the sole means for clinical diagnosis or patient management decisions. Pleural Fluid Structure of left half of chest wall / Unknown 09/25/2024 2:55 PM EDT 09/25/2024 3:12 PM EDT Comment:LT pleural fluid [facility] LAB BODY FLUIDS AND STOOLS ORDER GLORIA Final Result Performing Organization Address [facility] de Phone Number [facility] CLINICAL PATHOLOGY LABORATORY [address] [place] [address], [place] * Lactate Dehydrogenase, Body Fluid (09/25/2024 2:55 PM EDT) LDH, Fluid 93 U/L 09/25/2024 8:51 PM EDT [facility] [employer] CLINICAL PATHOLOGY LABORATORY Comment: No reference range available. This test was developed and its performance characteristics determined by [facility] Clinical Labs. FDA has not approved or cleared this test. FDA clearance or approval is not currently required for clinical use. The results are not intended to be used as the sole means for clinical diagnosis or patient management decisions. Pleural Fluid Structure of left half of chest wall / Unknown 09/25/2024 2:55 PM EDT 09/25/2024 3:12 PM EDT Comment:LT pleural fluid [facility] LAB BODY FLUIDS AND STOOLS ORDER GLORIA Final Result Performing Organization Address [facility] Co de Phone Number [facility] CLINICAL PATHOLOGY LABORATORY [address] [place] [address], [place] * Glucose, Body Fluid (09/25/2024 2:55 PM EDT) Glucose, Fluid 105 mg/dL 09/25/2024 8:51 PM EDT [facility] CLINICAL PATHOLOGY LABORATORY Comment: No reference range available. This test was developed and its performance characteristics determined by [facility] Clinical Labs. [employer] has not approved or cleared this test. FDA clearance or approval is not currently required for clinical use. The results are not intended to be used as the sole means for clinical diagnosis or patient management decisions. Pleural Fluid Structure of left half of chest wall / Unknown 09/25/2024 2:55 PM EDT 09/25/2024 3:12 PM EDT Comment:LT pleural fluid us Tr Aguillon [employer] LAB BODY FLUIDS AND STOOLS ORDER GLORIA Final Result [employer] CLINICAL PATHOLOGY LABORATORY [address] [place] [address], [place] * US Guided Thoracentesis Left (09/25/2024 2:52 PM EDT) Anatomical Region Laterality Modality Body Ultrasound 09/25/2024 2:48 PM EDT Impressions 09/25/2024 2:54 PM EDT Impression: Ultrasound guided therapeutic and diagnostic left thoracentesis. If this radiology report contains a blank impression section, it is an incomplete radiology report. Please contact the interpreting radiologist or applicable radiology division as soon as possible to obtain the completed interpretation. Workstation ID: [id number] Narrative 09/25/2024 2:54 PM EDT Ultrasound guided therapeutic and diagnostic or left thoracentesis. History: Large left pleural effusion. Operative report: Preparation: The procedure, risks, benefits, alternatives were discussed with the patient and written informed consent was obtained. Time-out was performed to verify patient identity and site of procedure. The patient's left chest was scanned in a sit up position. The fluid was localized and local area was prepped and draped in the usual sterile fashion. Local anesthesia was infiltrated with 1% lidocaine solution.. Procedure: Under real-time ultrasound guidance a 5 Nepali Yueh drainage catheter was introduced into the fluid pocket, and fluid was aspirated. Then catheter was connected to a vacuum suction device bottle. Total 950 cc fluid was removed during the procedure. 30 mL of fluid was sent for a variety labs tests required to the clinical team. No complications ensued. Myself Dr. Reid Dukes, was present and performed the procedure. Patient tolerated the procedure well and no immediate complications. Resulting Agency Comment [id number] Procedure Note Reid Dukes MD - 09/25/2024 Ultrasound guided therapeutic and diagnostic or left thoracentesis. History: Large left pleural effusion. Operative report: Preparation: The procedure, risks, benefits, alternatives were discussedwith the patient and written informed consent was obtained. Time-out wasperformed to verify patient identity and site of procedure. The patient'sleft chest was scanned in a sit up position. The fluid was localized andlocal area was prepped and draped in the usual sterile fashion. Localanesthesia was infiltrated with 1% lidocaine solution.. Procedure: Under real-time ultrasound guidance a 5 Nepali Yueh drainagecatheter was introduced into the fluid pocket, and fluid was aspirated. Then catheter was connected to a vacuum suction device bottle. Nrqyc262 cc fluid was removed during the procedure. 30 mL of fluid was sent for a variety labs tests required to the [facility]. No complications ensued. Myself Dr. Reid Dukes, was present andperformed the procedure. Patient tolerated the procedure well and noimmediate complications. IMPRESSION: Impression: Ultrasound guided therapeutic and diagnostic leftthoracentesis. If this radiology report contains a blank impression section, it is anincomplete radiology report. Please contact the interpreting radiologistor applicable radiology division as soon as possible to obtain thecompleted interpretation. Workstation ID: [id number] us Sang Lyndsey Aguillon [employer] IMG US PROCEDURES Final Result * Legionella Antigen, Urine (09/25/2024 12:31 PM EDT) Legionella pneumophila Urine Ag Negative Negative ASS MANUAL 09/25/2024 1:14 PM EDT [facility] Comment: INTERPRETATION: Presumptive negative for Legionella pneumophila serogroup 1 antigen in urine, suggesting no recent or current infection. Infection due to Legionella cannot be ruled out since other serogroups and species may cause disease, antigen may not be present in urine in early infection, and the level of antigen present in the urine may be below the detection limit of the test. Urine Urine specimen collection, clean catch / Unknown Non-Blood Collection / Unknown 09/25/2024 12:31 PM EDT 09/25/2024 12:35 PM EDT Narrative [facility] - 09/25/2024 1:14 PM EDT This assay is specific for Legionella pneumophila serogroup 1 which causes more than 50% of all Legionella infections. This assay will not detect infections caused by other Legionella species/serogroups. Antigenuria may persist for prolonged periods of time. Legionella pneumophila serogroup 1 antigen can be detected in urine within 2-3 days of infection and may persist even after treatment. This assay does not detect other Legionella species or serogroups. us Raul White MD LAB URINE ORDERABLES Final R esult Performing Organization Address [facility] Co de Phone Number [address] [address], [place] [phone] * Blood Culture, Peripheral #2 (09/25/2024 11:38 AM EDT) Only the most recent of2 resultswithin the time period is included. Blood Culture No growth after 5 days 09/30/2024 1:05 PM EDT [facility] Blood Structure of peripheral vein / Unknown Venipuncture / Unknown 09/25/2024 11:38 AM EDT 09/25/2024 11:54 AM EDT Raul White MD LAB MICROBIOLOGY - GENERAL O RDERABLES Final Result Performing Organization Address [facility] Co de Phone Number [facility] [address] [place] [address], [place] [phone] * [place] Lower Extremity Venous Bilateral ([facility]) (09/25/2024 8:12 AM EDT) Anatomical Region Laterality Modality Lower Extremities Bilateral Ultrasound 09/25/2024 9:18 AM EDT Impressions 09/25/2024 9:20 AM EDT No evidence of deep vein thrombosis in the bilateral lower extremity. If this radiology report contains a blank impression section, it is an incomplete radiology report. Please contact the interpreting radiologist or applicable radiology division as soon as possible to obtain the completed interpretation. Workstation ID: [id number] Narrative 09/25/2024 9:20 AM EDT EXAMINATION: Ultrasound Doppler veins of the bilateral lower extremity. INDICATION: Elevated d-dimer. TECHNIQUE: A duplex ultrasound examination of the lower extremity deep venous circulations are performed. The veins are examined using compression, pulsed Doppler and color Doppler. Augmentation of flow in the popliteal veins are examined with the calf squeeze maneuver. FINDINGS: Visualized the bilateral venous structures from the common femoral vein, great saphenous vein, femoral vein to the popliteal veins are patent and compressible and without filling defect. Limited images of the calf demonstrate demonstrated No filling defect is seen in the visualized posterior tibial and peroneal veins. No Izaguirre's cyst in the popliteal fossae. Resulting Agency Comment [id number] Procedure Note Reid Dukes MD - 09/25/2024 EXAMINATION: Ultrasound Doppler veins of the bilateral lower extremity. INDICATION: Elevated d-dimer. TECHNIQUE: A duplex ultrasound examination of the lower extremity deepvenous circulations are performed. The veins are examined usingcompression, pulsed Doppler and color Doppler. Augmentation of flow inthe popliteal veins are examined with the calf squeeze maneuver. FINDINGS: Visualized the bilateral venous structures from the commonfemoral vein, great saphenous vein, femoral vein to the popliteal veinsare patent and compressible and without filling defect. Limited images of the calf demonstrate demonstrated No filling defect isseen in the visualized posterior tibial and peroneal veins. No Izaguirre's cyst in the popliteal fossae. IMPRESSION: No evidence of deep vein thrombosis in the bilateral lower extremity. If this radiology report contains a blank impression section, it is anincomplete radiology report. Please contact the interpreting radiologistor applicable radiology division as soon as possible to obtain thecompleted interpretation. Workstation ID: [id number] us Sang Mi [place] [employer] IMG US PROCEDURES Final Result * Tick Born Disease, Acute Molecular Panel (09/25/2024 5:11 AM EDT) Anaplasma phagocytophilum DNA, QL Real Time PCR NOT DETECTED NOT DETECTED 09/26/2024 10:18 PM EDT [facility] Comment: This test was developed and its analytical performance characteristics have been determined by [employer]. It has not been cleared or approved by the FDA. This assay has been validated pursuant to the CLIA regulations and is used for clinical purposes. Babesia microti DNA, Real Time PCR NOT DETECTED NOT DETECTED 09/26/2024 10:18 PM EDT [employer] [facility] Comment: This test was developed and its analytical performance characteristics have been determined by [facility]. It has not been cleared or approved by the FDA. This assay has been validated pursuant to the CLIA regulations and is used for clinical purposes. B miyamotoi DNA PCR NOT DETECTED NOT DETECTED 09/26/2024 10:18 PM EDT [employer] [facility] Comment: This test was developed and its analytical performance characteristics have been determined by [employer]. It has not been cleared or approved by the FDA. This assay has been validated pursuant to the CLIA regulations and is used for clinical purposes. Ehrlichia chaffeensis DNA Real Time PCR NOT DETECTED NOT DETECTED 09/26/2024 10:18 PM EDT [facility] Comment: This test was developed and its analytical performance characteristics have been determined by [employer]. It has not been cleared or approved by the FDA. This assay has been validated pursuant to the CLIA regulations and is used for clinical purposes. Borrelia species DNA PCR NOT DETECTED NOT DETECTED 09/26/2024 10:18 PM EDT [facility] Comment: This test was developed and its analytical performance characteristics have been determined by [employer]. It has not been cleared or approved by the FDA. This assay has been validated pursuant to the CLIA regulations and is used for clinical purposes. Borrelia species DNA PCR Comment See Comments 09/26/2024 10:18 PM EDT [facility] Comment: A negative result does not exclude Borrelia infection as the concentration of the organism in blood may be low or non-existent in patients with Lyme disease, and may depend on timing of specimen collection from onset of symptoms. Clinical correlation is recommended and additional studies such as serologic testing may be indicated. For additional information, please refer to https://education.[employer]/faq/yrb697 (This link is being provided for informational/ educational purposes only.) Blood Structure of peripheral vein / Unknown Venipuncture / Unknown 09/25/2024 5:11 AM EDT 09/25/2024 5:14 AM EDT Narrative IDA JACKSON - 09/26/2024 10:18 PM EDT [facility] Received Date:[id number] us Raul White MD LAB BLOOD ORDERABLES Final R esult [facility] [address] [facility] [address], [place] [address], [place] [phone] [employer] [facility] [address] [facility] [address], [place] [address], [place] [phone] * (ABNORMAL) Manual Differential (09/25/2024 5:11 AM EDT) Only the most recent of2 resultswithin the time period is included. Neutrophil %, Manual 74 50 - 75 % 09/25/2024 5:57 AM EDT [facility] Lymphocyte %, Manual 16(L) 33 - 54 % 09/25/2024 5:57 AM EDT [facility] Monocyte %, Manual 7 0 - 14 % 09/25/2024 5:57 AM EDT [facility] Eosinophil %, Manual 2 0 - 5 % 09/25/2024 5:57 AM EDT [facility] Basophil %, Manual 0 0 - 2 % 09/25/2024 5:57 AM EDT [facility] Promyelocyte % 1(H) 0 % 09/25/2024 5:57 AM EDT [facility] Total Neutrophil #, Manual 2.15 1.80 - 7.70 10*3/uL 09/25/2024 5:57 AM EDT [facility] Total Lymph #, Manual 0.46(L) 1.00 - 4.75 10*3/uL 09/25/2024 5:57 AM EDT [facility] Monocyte #, Manual 0.20 0.00 - 0.60 10*3/uL 09/25/2024 5:57 AM EDT [facility] Eosinophil #, Manual 0.06 0.00 - 0.80 10*3/uL 09/25/2024 5:57 AM EDT [facility] Basophil #, Manual 0.00 0.00 - 0.20 10*3/uL 09/25/2024 5:57 AM EDT [facility] Promyelocyte # 0.03(H) 0.00 10*3/uL 09/26/19 5:57 AM EDT [facility] Platelet Estimate Decrease d(A) Adequate 09/25/2024 5:57 AM EDT [facility] RBC Morphology Present( A) Normal, No clinically significant RBC morphology present (ICSH guidelines, 2015). 09/25/2024 5:57 AM EDT [facility] Ovalocytes 1+(A) Not Present 09/25/2024 5:57 AM EDT [facility] Microcytes 1+(A) Not Present 09/25/2024 5:57 AM EDT [facility] Total Cells Counted 116 09/25/2024 5:57 AM EDT [facility] Blood Structure of peripheral vein / Unknown Venipuncture / Unknown 09/25/2024 5:11 AM EDT 09/25/2024 5:14 AM EDT us Tr Aguillon [employer] LAB BLOOD ORDERABLES Final Resul t Performing Organization Address City/State/[facility] Co de Phone Number [facility] [address] [place] [address], [place] [phone] * Basic Metabolic Panel (09/25/2024 5:11 AM EDT) Only the most recent of2 resultswithin the time period is included. NA 139 136 - 145 mmol/L 09/25/2024 5:38 AM EDT [facility] K 4.1 3.5 - 5.1 mmol/L 09/25/2024 5:38 AM EDT [facility] Cl 105 98 - 109 mmol/L 09/25/2024 5:38 AM EDT [facility] CO2 23 22 - 32 mmol/L 09/25/2024 5:38 AM EDT [facility] BUN 21 8 - 23 mg/dL 09/25/2024 5:38 AM EDT [facility] Creatinine 0.87 0.50 - 1.12 mg/dL 09/25/2024 5:38 AM EDT [facility] Glucose 96 60 - 99 mg/dL 09/25/2024 5:38 AM EDT [facility] Calcium 8.9 8.4 - 10.4 mg/dL 09/25/2024 5:38 AM EDT [facility] Anion Gap 15 >=0 09/25/2024 5:38 AM EDT [facility] eGFR 72 >=60 mL/min/1. 73m2 09/25/2024 5:38 AM EDT [facility] Comment:The estimated glomer ular filtration rate (eGFR) is calculated using a new formula developed by the NKF-ASN task force to eliminate race-based correction factors. The new formula uses serum/plasma creatinine, age, and gender to determine eGFR. A value below 60mls/min might indicate kidney disease and will be flagged. For additional information, see Richardson et al, Am J Kidney Dis. 2021;79(2):268- 288, A Unifying Approach for GFR estimation: Recommendations of the NKF-ASN Task Force on Reassessing the Inclusion of Race in Diagnosing Kidney Disease . Blood Structure of peripheral vein / Unknown Venipuncture / Unknown 09/25/2024 5:11 AM EDT 09/25/2024 5:14 AM EDT us Tr Aguillon [employer] LAB BLOOD ORDERABLES Final Resul t [facility] [address] [facility] [address] [place] [address], * CT Chest Pulmonary Embolism W Contrast (09/24/2024 8:30 PM EDT) Anatomical Region Laterality Modality Body Computed Tomogra phy 09/24/2024 8:48 PM EDT Impressions 09/24/2024 9:00 PM EDT Large left and moderate right pleural effusions. Near-complete atelectasis of the left lower lobe. Chronic atelectasis of the right middle lobe. If this radiology report contains a blank impression section, it is an incomplete radiology report. Please contact the interpreting radiologist or applicable radiology division as soon as possible to obtain the completed interpretation. Workstation ID: [id number] Up-to-date CT equipment and radiation dose reduction techniques were employed. CTDIvol: .8 - 6.3 mGy. DLP: 187 mGy-cm. Narrative 09/24/2024 9:00 PM EDT COMPARISON: Chest CT 12/01/2023 FINDINGS: PULMONARY ARTERIES: No pulmonary embolism. LUNGS AND AIRWAYS: Large left, moderate pleural effusions. Near-complete atelectasis of the left lower lobe. Chronic right middle lobe atelectasis. No pneumothorax. MEDIASTINUM: Normal heart size. Normal aortic caliber. NODES: No axiallary or mediastinal lymphadenopathy. UPPER ABDOMEN: Cirrhosis. Absent gallbladder. Multiple collateral vessels anteriorly. CHEST WALL: Vascular collaterals along the right chest wall. BONES: No acute abnormality. Resulting Agency Comment [id number] Procedure Note Mike Nava MD - 09/24/2024 COMPARISON: Chest CT 12/01/2023 FINDINGS: PULMONARY ARTERIES: No pulmonary embolism. LUNGS AND AIRWAYS: Large left, moderate pleural effusions. Near-complete atelectasis of theleft lower lobe. Chronic right middle lobe atelectasis. Nopneumothorax. MEDIASTINUM: Normal heart size. Normal aortic caliber. NODES: No axiallary or mediastinal lymphadenopathy. UPPER ABDOMEN: Cirrhosis. Absent gallbladder. Multiple collateral vessels anteriorly. CHEST WALL: Vascular collaterals along the right chest wall. BONES: No acute abnormality. IMPRESSION: Large left and moderate right pleural effusions. Near-complete atelectasis of the left lower lobe. Chronic atelectasis of the right middle lobe. If this radiology report contains a blank impression section, it is anincomplete radiology report. Please contact the interpreting radiologistor applicable radiology division as soon as possible to obtain thecompleted interpretation. Workstation ID: [id number] Up-to-date CT equipment and radiation dose reduction techniques wereemployed. CTDIvol: .8 - 6.3 mGy. DLP: 187 mGy-cm. Don Cerda MD IMG CT PROCEDURES Final Resu lt * Rapid COVID-19, FLU A, FLU B & RSV RNA PCR, Symptomatic (ED ONLY) (09/24/2024 7:17 PM EDT) [facility] PCR, SARS CoV-2 RNA Not Detected Not Detected [employer] 09/24/2024 8:00 PM EDT [facility] Flu A RNA PCR Not Detected Not Detected [employer] 09/24/2024 8:00 PM EDT [facility] Flu B RNA PCR Not Detected Not Detected [employer] 09/24/2024 8:00 PM EDT [facility] RSV RNA PCR Not Detected Not Detected [employer] 09/24/2024 8:00 PM EDT [facility] Comment: Limitations: This RSV test is suitable for the pediatric population (less than 19 years of age) only. Performance characteristics have not been established for use with patients older than 19 years of age and immunocompromised patients. Test results must be evaluated in conjuction with other clinical data available to the physician. Swab (Nares) Non-Blood Collection / Unknown 09/24/2024 7:17 PM EDT 09/24/2024 7:19 PM EDT [facility] - 09/24/2024 8:00 PM EDT Methodology: The [employer]pert CoV-2/Flu/RSV plus assay is For Use Under an Emergency Use Authorization (EUA) Only with [employer]. The CoV-2/Flu/RSV plus assay is a rapid, multiplexed real-time RT-PCR assay intended for the simultaneous qualitative detection and differentiation of RNA from SARS-CoV-2, influenza A, influenza B, and Respiratory Syncytial Virus (RSV) in specimens collected from individuals suspected of a respiratory viral infection, by their healthcare provider. A positive test result for SARS-CoV-2, influenza or RSV indicates that RNA from that virus was detected. A negative test result indicates that RNA virus was not present in the specimen above the limit of detection. Therefore, a negative result does not rule out SARS-CoV-2, influenza or RSV infection and should not be used as the sole basis for treatment or other patient management decisions. us Don Cerda MD LAB BODY FLUIDS AND STOOLS O RDERABLES Final Result Performing Organization Address [facility] de Phone Number [address] [address], [place] [phone] * (ABNORMAL) D-Dimer, Quantitative (for DVT/PE) (09/24/2024 7:17 PM EDT) [facility] D-Dimer, Quantitative 5.59(HH) 0.10 - 0.49 mg/L FEU 09/24/2024 7:42 PM EDT [facility] Comment:A D-DIMER VALUE OF < 0.50 ug/FEU/mL HAS A STRONG NEGATIVE PREDICTIVE VALUE FOR EXCLUSION OF PULMONARY EMBOLIC AND DEEP VEIN THROMBOSIS. CLINICAL CORRELATION IS INDICATED. Blood Structure of peripheral vein / Unknown Venipuncture / Unknown 09/24/2024 7:17 PM EDT 09/24/2024 7:19 PM EDT us Don Cerda MD LAB BLOOD ORDERABLES Final R esult Performing Organization Address [facility] Co de Phone Number [facility] [address] [place] [address], [place] [phone] * (ABNORMAL) Troponin T, High Sensitivity X2 (now + 2hrs) (09/24/2024 7:05 PM EDT) Troponin T High Sensitivity 17(H) 6 - 14 ng/L 09/24/2024 7:55 PM EDT [facility] Comment: Zz-Nnmksski-L level of 52 ng/L or higher at 0-hour at presentation is recommended by the ESC 0/1-hour algorithm for identifying patients at high risk for ruling in acute myocardial infarction (AMI) in the appropriate clinical context. Repeat troponin testing 1-3 hours after the initial sample may be helpful in assessing for ongoing myocardial injury. Troponin elevations can be seen in several other non-infarct conditions, and the change (delta) should be evaluated in line with the 4th [place] Definition of AMI. Troponin baseline and serial elevation for a significant delta should be interpreted with clinical presentation, history, signs and symptoms, ECG, and biomarker concentrations. For inpatient setting: Value <12ng/L is considered negative for all genders. 0-1hr: A delta change of <3 will be considered negative/flat if chest pain onset >3 hours 0-3hr: A delta change of <7 will be considered negative/flat Blood Structure of peripheral vein / Unknown Venipuncture / Unknown 09/24/2024 7:05 PM EDT 09/24/2024 7:16 PM EDT us Don Cerda MD LAB BLOOD ORDERABLES Final R esult [facility] [address] [facility] [address]ND [place] [address], * N-terminal ProBrain Natriuretic Peptide (09/24/2024 7:05 PM EDT) Pro-B-Type Natriuretic Peptide 56 <=900 pg/mL 09/24/2024 8:19 PM EDT [facility] Comment: RULE IN CHF >/= 450 pg/mL for patients <50 years old RULE IN CHF >/= 900 pg/mL for patients 50-75 years old RULE IN CHF >/= 1800 pg/mL for patients >75 years old RULE OUT CHF </= 300 pg/mL (not age specific) Blood Structure of peripheral vein / Unknown Venipuncture / Unknown 09/24/2024 7:05 PM EDT 09/24/2024 7:16 PM EDT us Don Cerda MD LAB BLOOD ORDERABLES Final R esult Performing Organization Address [facility] Co de Phone Number [facility] [address] [address], [place] [phone] * Phosphorus (09/24/2024 7:05 PM EDT) Pathologist [facility] Phosphorus 3.8 2.5 - 4.5 mg/dL 09/24/2024 7:55 PM EDT [facility] Blood Structure of peripheral vein / Unknown Venipuncture / Unknown 09/24/2024 7:05 PM EDT 09/24/2024 7:16 PM EDT us Don Cerda MD LAB BLOOD ORDERABLES Final R esult Performing Organization Address [facility] Co de Phone Number [facility] [address] [address], [place] [phone] * (ABNORMAL) Hepatic Function Panel (09/24/2024 7:05 PM EDT) Total Protein 7.0 6.6 - 8.7 g/dL 09/24/2024 7:39 PM EDT [facility] Albumin 3.8 3.5 - 5.0 g/dL 09/24/2024 7:39 PM EDT [facility] Globulin, Total 3.2 2.1 - 4.2 g/dL 09/24/2024 7:39 PM EDT [facility] Bilirubin, Total 1.4(H) 0.2 - 1.2 mg/dL 09/24/2024 7:39 PM EDT [facility] Bilirubin, Direct 1.0(H) <=0.3 mg/dL 09/24/2024 7:39 PM EDT [facility] Alkaline Phosphatase 189(H) 40 - 129 U/L 09/24/2024 7:39 PM EDT [facility] AST 31 0 - 33 U/L 09/24/2024 7:39 PM EDT [facility] ALT 21 <=33 U/L 09/24/2024 7:39 PM EDT [facility] Bilirubin, Indirect 0.40 <=0.70 mg/dL 09/24/2024 7:39 PM EDT [facility] A/G Ratio 1.2(L) 1.5 - 3.0 09/24/2024 7:39 PM EDT [facility] Blood Structure of peripheral vein / Unknown Venipuncture / Unknown 09/24/2024 7:05 PM EDT 09/24/2024 7:16 PM EDT us Don Cerda MD LAB BLOOD ORDERABLES Final R esult [facility] [address] [place] [address] [address] [place] [address], [place] [phone] * US Limited Abdomen Single Org (09/24/2024 6:32 PM EDT) Anatomical Region Laterality Modality Body N/A Ultrasound 09/25/2024 9:21 AM EDT Impressions 09/25/2024 9:38 AM EDT Liver is heterogeneous and nodular, compatible with history of cirrhosis. The portal vein is patent with hepatopedal flow. CBD is normal in size, 4.3 mm. Very small amount perihepatic ascites is present. Small left pleural effusion and trace amount of perisplenic fluid. No significant ascites is present in the rest of the abdomen. If this radiology report contains a blank impression section, it is an incomplete radiology report. Please contact the interpreting radiologist or applicable radiology division as soon as possible to obtain the completed interpretation. Workstation ID: [id number] Narrative 09/25/2024 9:38 AM EDT EXAMINATION: Ultrasound, limited abdomen. INDICATION: Cirrhosis with abdominal distention, evaluation of ascites.. TECHNIQUE: Real-time ultrasound of the abdomen was performed with focus for ascites evaluation. COMPARISON: None. FINDINGS: Resulting Agency Comment [id number] Procedure Note Reid Dukes MD - 09/25/2024 EXAMINATION: Ultrasound, limited abdomen. INDICATION: Cirrhosis with abdominal distention, evaluation of ascites.. TECHNIQUE: Real-time ultrasound of the abdomen was performed with focus for ascitesevaluation. COMPARISON: None. FINDINGS: IMPRESSION: Liver is heterogeneous and nodular, compatible with history ofcirrhosis. The portal vein is patent with hepatopedal flow. CBD is normal in size,4.3 mm. Very small amount perihepatic ascites is present. Small left pleural effusion and trace amount of perisplenic fluid. No significant ascites is present in the rest of the abdomen. If this radiology report contains a blank impression section, it is anincomplete radiology report. Please contact the interpreting radiologistor applicable radiology division as soon as possible to obtain thecompleted interpretation. Workstation ID: [id number] us Joycelyn Becerra MD IMG US PROCEDURES Final Result * PATHOLOGY - SCANNED (09/24/2024) us Onbase Scan Karel SCANNED PROCEDURES Final Resu lt from Last 3 Months Insurance Clue App MEDICARE MEDICARE FOR LIFE Advance Directives Documents on File Type Date Recorded Patient General Studies Program Chair Expl [facility] Health Care Proxy 11/21/2023 2:03 PM 06-19 * Full Code (Latest Code Status on File) Date Activated Date Inactivated Comments 09/24/2024 10:27 PM 09/26/2024 5:53 PM * Full Code Date Activated Date Inactivated Comments 09/04/2024 2:54 AM 09/05/2024 5:01 PM * Full Code Date Activated Date Inactivated Comments 09/03/2024 10:00 PM 09/04/2024 2:54 AM * Full Code Date Activated Date Inactivated Comments 02/22/2024 5:17 PM 02/22/2024 7:43 PM * Full Code Date Activated Date Inactivated Comments 02/22/2024 2:16 PM 02/22/2024 5:17 PM Care Teams 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
--- OUTSIDE RECORDS SUMMARY | 2024-12-23 15:05 | XMS_ITS ---
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
--- OUTSIDE RECORDS SUMMARY | 2024-12-23 15:05 | XMS_ITS | Encounter Summary ---
Author Organization [facility] Address [address] [place] [address] Care Team Providers Care Stock Letterer Name Role Phone Taylor Zapata Primary Care Provider [phone] Encounter Details Date Type Department Care Team (Late st Contact Info) Description 09/25/2024 Telephone [place] [facility] [address] [place] [address] Amanda Augustin, RN Social History Tobacco Use Types Packs/Day Years Used Date Smoking Tobacco: Former Cigarettes Smokeless Tobacco: Never Alcohol Use Standard Drinks/Week Comments Never 0 (1 standard drink = 0.6 oz pur e alcohol) [facility] Utilities Answer Date Recorded In the [...] Description 01/02/2025 10:[address] [facility] Cardiology Ultrasound [address] [place] [address] 01/14/2025 8:00 AM EDT Office Visit [facility] [address] [place] [address] Metalsmith Apprentice: Uriel Garcia MD [address] [place] [address] 01/14/2025 10:30 AM EDT Follow-Up [facility] Liver Transplant Services [address] [place] [address] Joycelyn Becerra MD [address] [place] [address] 03/04/2025 11:00 AM EST Nutrition [facility] Liver Transplant Services [address] [place] [address] Joycelyn Becerra MD [address] [place] [address] [facility] [place], [place] 04/10/2025 3:30 PM EST Office Visit [facility] Building Neurology Clinic [address] [place] [address] Ascencion Bowden MD [address] [place] [address] 04/23/2025 11:00 AM EST Office Visit [facility] Neurology Clinic [address] [place] [address] Carin Starkey MD [address] [place], [place] [phone] 10/14/2025 10:00 AM EDT Office Visit [facility] [address] [facility] Department [address] [facility] [place] [phone] Lupe Ron NP [address] [place] [address] documented as of this encounter Visit Diagnoses Not on filedocumented in this encounter Care Teams Stock Letterer Relationship Specialty Start Date End Date Taylor Zapata [address] [place] [address] PCP - General Internal Medicine 12/01/23 documented as of this encounter
--- OUTSIDE RECORDS SUMMARY | 2024-12-23 15:05 | XMS_ITS | Clinical Summary ---
Author Organization [facility] Address [facility] [employer] [address] [address] Phone Care Team Providers Care Primary Education Professor Name Role Phone Taylor Zapata MD Primary Care Provider [phone] Allergies Active Allergy Reactions Criticality Noted Date Comments Hydromorphone Hallucinations High 11/11/2024 Sulfa (Sulfonamide Antibiotics) Rash Low 10/31 Medications albuterol 90 mcg/actuation inhaler Inhale 2 puffs into the lungs every 6 (six) hours as needed for shortness of breath/dyspnea or wheezing. 5 Active buPROPion (WELLBUTRIN XL) 150 MG ER 24 hr tablet Take 300 mg by mouth every morning. 5 Active cholecalciferol (VITAMIN D3) 25 MCG (1,000 unit) tablet Take 1,000 Units by mouth daily. 5 Active cloNIDine HCL (CATAPRES) 0.1 MG tablet Take 0.1 mg by mouth 3 (three) times a day. 5 Active colesevelam (WELCHOL) 625 mg tablet Take 1,250 mg by mouth 2 (two) times a day with meals. 5 Active cyanocobalamin, vitamin B-12, 1000 MCG tablet Take 1,000 mcg by mouth daily. 5 Active escitalopram oxalate (LEXAPRO) 10 MG tablet Take 10 mg by mouth daily. 5 Active furosemide (LASIX) 20 MG tablet Take 20 mg by mouth daily. Active gabapentin (NEURONTIN) 300 MG capsule Take 600 mg by mouth nightly at bedtime. Active zinc acetate (GALZIN) 50 mg (zinc) Cap Take 50 mg by mouth daily. Active lactobacillus rhamnosus, GG, (CULTURELLE) 10 billion cell capsule Take 1 capsule by mouth 2 (two) times a day. Active lansoprazole (PREVACID) 30 MG capsule Take 30 mg by mouth daily. Active magnesium gluconate (MAGONATE) 27.5 mg magne- sium (500 mg) tablet Take 55 mg by mouth 2 (two) times a day. Active ondansetron (ZOFRAN) 4 MG tablet Take 4 mg by mouth every 8 (eight) hours as needed for nausea. Active pyridoxine, vitamin B6, (B-6) 25 MG tablet Take 200 mg by mouth 2 (two) times a day. Active rifAXIMin (XIFAXAN) 550 mg Tab Take 550 mg by mouth every 12 (twelve) hours. Active spironolactone (ALDACTONE) 25 MG tablet Take 100 mg by mouth daily. Active sucralfate (CARAFATE) 1 gram tablet Take 1 g by mouth daily. Active tacrolimus (PROGRAF) 0.5 MG capsule Take 0.5 mg by mouth 2 (two) times a day. Active ursodioL (ACTIGALL) 500 MG tablet Take 500 mg by mouth 2 (two) times a day. Active Encounters Date Type Department Care Team Description 12/11/2024 10:00 AM EDT Home Care Visit [facility] Hospice [address] [place] [address] Karla Bowman, OT OT OASIS DISCHARGE VISIT 12/11/2024 9:15 AM EDT Home Care Visit [facility] [address] [place] [address] Karla Dalal, PT PT DISCIPLINE DISCHARGE VISIT 12/09/2024 9:45 AM EDT Home Care Visit [facility] [address] [place], [place] [phone] Pat Glover, SHIFT SUPERINTENDENT CAUSTIC CRESYLATE SHIFT SUPERINTENDENT CAUSTIC CRESYLATE HOME VISIT 12/08/2024 10:30 AM EDT Home Care Visit [facility] [address] [place], [place] [phone] Karla Bowman, OT OT HOME VISIT 12/03/2024 10:15 AM EDT Home Care Visit [facility] [address] [place], [place] [phone] Pat Glover, SHIFT SUPERINTENDENT CAUSTIC CRESYLATE SHIFT SUPERINTENDENT CAUSTIC CRESYLATE HOME VISIT 12/02/2024 1:00 PM EDT Home Care Visit [facility] [address] [place], [place] [phone] Karla Bowman, OT OT HOME VISIT 11/28/2024 11:00 AM EDT Home Care Visit [facility] [address] [place], [place] [phone] Pat Glover, SHIFT SUPERINTENDENT CAUSTIC CRESYLATE SHIFT SUPERINTENDENT CAUSTIC CRESYLATE HOME VISIT 11/27/2024 2:30 PM EDT Home Care Visit [facility] [address] [place], [place] [phone] Karla Bowman, OT OT HOME VISIT 11/25/2024 2:45 PM EDT Home Care Visit [facility] [address] [place], [place] [phone] Karla Dalal, PT PT HOME VISIT 11/24/2024 8:45 AM EDT Home Care Visit [facility] [address] [place], [place] [phone] Karla Bowman, OT OT HOME VISIT 11/21/2024 1:15 PM EDT Home Care Visit [facility] [address] [place], [place] [phone] Karla Dalal, PT PT HOME VISIT 11/20/2024 1:30 PM EDT Home Care Visit [facility] [address] [place] [address] Karla Bowman, OT OT EVALUATION 11/17/2024 Home Care Visit [facility] [address] [place] [address] Karla Bowman, OT TELEPHONE ENCOUNTER 11/14/2024 10:30 AM EDT Home Care Visit [facility] [address] [place] [address] Karla Dalal, PT PT HOME VISIT 11/14/2024 Home Care Visit [facility] [address] [place] [address] Kelley Ross, PT TELEPHONE ENCOUNTER 11/11/2024 12:00 PM EDT Home Care Visit [facility] [address] [place] [address] Karla Dalal, PT PT OASIS START OF CARE (SOC) 11/11/2024 Plan of Care Documentation [facility] [address] [place] [address] 10/20/2024 Orders Only [facility] [address] [place] [address] Homehealth, Interface ProviderMD from Last 3 Months Social History Tobacco Use Types Packs/Day Years Used Date Smoking Tobacco: Never Assessed Home Health Assessment: Transportation Answer Date Recorded Lack of Transportation (Medical) No 12/11/2024 Lack of Transportation (Non-Medical) No 12/11/2024 Patient Unable or Declines to Respond No 12/11/2024 Education Answer Date Recorded Are you interested [...] Orientation Straight 10/09/2023 7: 28 PM EDT Last Filed Vital Signs Vital Sign Reading Time Taken Comments Blood Pressure 106/58 12/11/2024 10:33 AM EDT Pulse 86 12/11/2024 10:33 AM EDT Temperature 36.6 C (97.8 F) 12/11/2024 10:33 AM EDT Respiratory Rate 14 12/11/2024 10:33 AM EDT Oxygen Saturation 97% 12/11/2024 10:33 AM EDT Inhaled Oxygen Concentration - - Weight - - Height - - Body Mass Index - - Plan of Treatment Health Maintenance Due Date Last Done Comments Adult Td,Tdap Booster 1954 LIPID PANEL 1954 POTASSIUM LEVEL 1954 COVID-19 VACCINE (#1) 09/15/1959 DEPRESSION SCREENING 1966 SMOKING Hx and SMOKELESS TOBACCO SCREENING 09/15/1967 PNEUMOCOCCAL VACCINES (50+ years) (1 of 2 - PCV) 1973 ZOSTER VACCINES (1 of 2) 1973 MAMMOGRAM 1994 COLOGUARD 09/15/1999 COLONOSCOPY 09/15/1999 COLORECTAL CANCER SCREENING 09/15/1999 FIT TEST 09/15/1999 FOBT 09/15/1999 SIGMOIDOSCOPY 09/15/1999 VIRTUAL COLONOSCOPY 09/15/1999 RSV VACCINE (1 - Risk 60-74 years 1-dose series) 2014 OSTEOPOROSIS SCREENING INITI AL (ONE-TIME) 09/15/2019 INFLUENZA VACCINE (#1) 2024 HEPATITIS C SCREENING Completed 08/18/2023 , 10/19/2022 [...] file Insurance MEDICARE PART A & B [employer] MEDICARE SUPPLEMENT [facility] Address: [address] [address] MEDICARE PART A & B [employer] ([employer]) MEDICARE SUPPLEMENT MEDICARE PART A & B Member Subscriber Plan / Payer (Ef fective 2017-Present) Name:Praveena Douglass Member ID:[id number] Relation to Subscriber:Self Name:Praveena Douglass Subscriber ID:[id number] Payer ID:[id number] Group ID:Not on file Type:Medicare Address: [employer] [place] [employer] [address] [employer] ([employer]) MEDICARE SUPPLEMENT [facility] Address: [address] [address] MEDICARE PART A & B [employer] [facility] ([facility]) MEDICARE SUPPLEMENT [facility] Address: [address] [address] MEDICARE PART A & B Member Subscriber Plan / Payer (Ef fective 2017-) Name:Praveena Douglass Member ID:[id number] Relation to Subscriber:Self Name:Praveena Douglass Subscriber ID:[id number] Payer ID:[id number] Group ID:Not on file Type:Medicare Address: [employer] [place] [address] [place] [id number] [employer] ([facility]) MEDICARE SUPPLEMENT [facility] Address: [address] [address] MEDICARE PART A & B [employer] ([employer]) MEDICARE SUPPLEMENT Care Teams Primary Education Professor Relationship Specialty Start Date End Date Taylor Zapata MD [address] [facility] [place] [address] PCP - General Internal Medicine 09/14/23 Additional Source Comments The information contained in this document represents components of the legal health record. It is not the complete legal health record.[facility]
--- OUTSIDE RECORDS SUMMARY | 2024-12-23 15:05 | XMS_ITS | Encounter Summary ---
Author Organization [facility] Address [address] [place] [address] Care Team Providers Care Doubler Operator Name Role Phone Taylor Zapata Primary Care Provider [phone] Encounter Details Date Type Department Care Team (Late st Contact Info) Description 06/18/2024 Orders Only [address], 5th [place] [address] Pablito Taveras MD [address] [place] [address] Social History Tobacco Use Types Packs/Day Years [...] Info) Description 01/02/2025 10:00 AM EDT Appointment [facility] Cardiology Ultrasound [address] [place] [address] 01/14/2025 8:00 AM EDT Office Visit [facility] [address] [place] [address] Ticket Taker: Uriel Garcia MD [address] [place] [address] 01/14/2025 10:30 AM EDT Follow-Up [facility] Liver Transplant Services [address] [place] [address] Joycelyn Becerra MD [address] [place] [address] 03/04/2025 11:00 AM EST Nutrition [facility] [address] [place] [address] Joycelyn Becerra MD [address] [place] [address] [facility] [place], [place] 04/10/2025 3:30 PM EST Office Visit [facility] Building Neurology Clinic [address] [place] [address] Ascencion Bowden MD [address] [place] [address] 04/23/2025 11:00 AM EST Office Visit [facility] Building Neurology Clinic [address] [place] [address] Carin Starkey MD [address] [place] [address] 10/14/2025 10:00 AM EDT Office Visit [address] Department [address] [place] [address] [place] [phone] Lupe Ron, HEAD ANIMAL TRAINER [address] [place] [address] documented as of this encounter Visit Diagnoses Not on filedocumented in this encounter Additional Health Concerns Infection Onset Date Last Indicated Resolved Time R/O Respiratory Virus Infection 09/24/2024 09/24/2024 8:00 PM EDT R/O Influenza 09/24/2024 09/24/2024 09/24/2024 8:0 0 PM EDT COVID-19 - Suspected infection 09/24/2024 09/24/2024 09/24/2024 8:00 PM EDT documented as of this encounter Care Teams Doubler Operator Relationship Specialty Start Date End Date Taylor Zapata [address] [place] [address] PCP - General Internal Medicine 12/01/23 documented as of this encounter
--- OUTSIDE RECORDS SUMMARY | 2024-12-23 15:05 | XMS_ITS | Encounter Summary ---
Author Organization [facility] Address [address] [place] [address] Care Team Providers Care Blade Aligner Name Role Phone NinonataliebabatundeTaylor Primary Care Provider [phone] Encounter Details Date Type Department Care Team (Late st Contact Info) Description 11/07/2023 Orders Only [facility] Xray [address] [place] [address] Adi Suazo MD [address] [place] [address] Social History Tobacco Use Types Packs/Day Years [...] Info) Description 01/02/2025 10:00 AM EDT Appointment [facility] Cardiology Ultrasound [address] [place] [address] 01/14/2025 8:00 AM EDT Office Visit [facility] [address] [place] [address] Drying Tumbler Operator: Uriel Garcia MD [address] [place] [address] 01/14/2025 10:30 AM EDT Follow-Up [facility] Liver Transplant Services [address] [place] [address] Joycelyn Becerra MD [address] [place] [address] 03/04/2025 11:00 AM EST Nutrition [facility] Liver Transplant Services [address] [place] [address] Joycelyn Becerra MD [address] [place] [address] [facility] [place] [place] 04/10/2025 3:30 PM EST Office Visit [facility] Neurology Clinic [address] [place] [address] Ascencion Bowden MD [address] [place] [address] 04/23/2025 11:00 AM EST Office Visit [facility] Neurology Clinic [address] [place] [address] Carin Starkey MD [address] [place] [address] 10/14/2025 10:00 AM EDT Office Visit [facility] [address] Department [address] [place] [address] [place] [phone] Lupe Ron, MICHI [address] [place] [address] documented as of this encounter Visit Diagnoses Not on filedocumented in this encounter Additional Health Concerns Infection Onset Date Last Indicated Resolved Time R/O Respiratory Virus Infection 09/24/2024 09/24/2024 8:00 PM EDT R/O Influenza 09/24/2024 09/24/2024 09/24/2024 8:0 0 PM EDT COVID-19 - Suspected infection 09/24/2024 09/24/2024 09/24/2024 8:00 PM EDT documented as of this encounter Care Teams Blade Aligner Relationship Specialty Start Date End Date Taylor Zapata [facility] [place] [address] PCP - General Internal Medicine 12/01/23 documented as of this encounter
--- OUTSIDE RECORDS SUMMARY | 2024-12-23 15:05 | XMS_ITS | Encounter Summary ---
Author Organization [facility] Address [address] [place] [address] Care Team Providers Care Facsimile Machine Operator Name Role Phone [email or web address] Primary Care Provider [phone] Encounter Details Date Type Department Care Team (Late Contact Info) Description 01/02/2024 Orders Only [facility] Interventional Radiology [address] [place] [phone] Vanessa Comer, EMELIA [address] [place] [address] Social History Tobacco Use Types Packs/Day Years [...] Info) Description 01/02/2025 10:00 AM EDT Appointment [facility] Cardiology Ultrasound [address] [place] [address] 01/14/2025 8:00 AM EDT Office Visit [facility] [address] [place] [phone] Compliance Director: Uriel Garcia MD [address] [place] [phone] 01/14/2025 10:30 AM EDT Follow-Up [facility] [address] [place] [phone] Joycelyn Becerra MD [address] [place] [phone] 03/04/2025 11:00 AM EST Nutrition [facility] [address] [place] [phone] Joycelyn Becerra MD [address] [place] [phone] [facility] [place], [place] 04/10/2025 3:30 PM EST Office Visit [facility] [address] [place] [phone] Ascencion Bowden MD [address] [place] [phone] 04/23/2025 11:00 AM EST Office Visit [facility] [address] [place] [phone] Carin Starkey MD [address] [place] [phone] 10/14/2025 10:00 AM EDT Office Visit [facility] Department [address] [place] [address] [place] [phone] Lupe Ron NP [address] [place] [phone] documented as of this encounter Visit Diagnoses Not on filedocumented in this encounter Additional Health Concerns Infection Onset Date Last Indicated Resolved Time R/O Respiratory Virus Infection 09/24/2024 09/24/2024 8:00 PM EDT R/O Influenza 09/24/2024 09/24/2024 09/24/2024 8:0 0 PM EDT COVID-19 - Suspected infection 09/24/2024 09/24/2024 09/24/2024 8:00 PM EDT documented as of this encounter Care Teams Facsimile Machine Operator Relationship Specialty Start Date End Date Taylor Zapata [facility] [place] [address] PCP - General Internal Medicine 12/01/23 documented as of this encounter
== END 2024-12-23 12:10 | disposition home or self-care (01) ==
LOC: HO.HMGCLDS 12:09
PROVIDERS: PCP Internal Medicine; Visit Provider Internal Medicine
DX: K74.3 Primary biliary cirrhosis (principal); D69.6 Thrombocytopenia, unspecified
CPT/HCPCS: 36415; 80053; 83540; 85025

== ENCOUNTER 2024-12-25 10:56 | Outpatient (AMB) | payer MEDICARE, OTHER, SELFPAY ==
--- NOTE | 2024-12-25 11:02 | A.OFFPC_ITS ---
Vital Signs 12/25/24 11:03 Height 4 ft 11 in Weight 108 lb BMI 21.8 BP 96/58 L Blood Pressure Location Rt brachial Position Sitting Respiration 18 Pulse 96 Pulse Source Pulse Oximeter Temp 98.2 F Temp Source Oral Pulse Oximetry (%) 99 Oxygen Delivery Method Room Air Intake Visit Reasons: PE/secondary covers Intake Note: Pt is here today for PE. Allergies hydromorphone (From Dilaudid) Allergy (Severe, Verified 12/25/24 11:05) Hallucinations losartan Allergy (Intermediate, Verified 12/25/24 11:05) Facial Swelling Sulfa (Sulfonamide Antibiotics) Adverse Reaction (Severe, Verified 12/25/24 11:05) Rash Tobacco use date assessed: 12/25/24 Fall risk assessment: 2 + Falls in past year Last assessed Fall Risk: 12/25/24 Dental Screening Dental Screen Date: 11/04/24 HPI PE/secondary covers HPI Details Patient presents for a physical. She was seen in the ER last week after a fall and dislocation of left hip prosthesis when patient was running after dog. She did not have any head injury CT of the brain chest abdomen were without new acute findings. Orthopedic performed repositioning of the hip in the socket and she has a follow-up with ortho in 2 weeks. Patient is established with [facility] for liver cirrhosis and follows up with liver transplant team at [facility] Medical History (Updated 12/25/24 @ 11:40 by Taylor Zapata MD) Bilateral subdural hematomas Hx of pleural effusion Pleural effusion Frequent falls Ascites Anemia CHF (congestive heart failure) Pancytopenia Anxiety HTN (hypertension) Tremor Chronic diarrhea Primary biliary cholangitis Breast cancer Surgical History History of abdominal paracentesis Hx of sigmoidoscopy H/O wrist surgery Transplant recipient Hx of colonoscopy Hx of esophagogastroduodenoscopy H/O: hysterectomy S/P hip replacement Liver transplant recipient Family History Mother CAD (coronary artery disease) Sister Ovarian cancer Mental health disorder Social History Household Members: Spouse Household Members Other:: , children Housing: House Are you a primary health care liaison to a significant other at home: No Do you presently have visiting nurse or other home services: No Alcohol intake: former Patient Tobacco Use Status: Former Tobacco user Tobacco use type: Cigarette e-Cigarette/Vaping Use: Never Used Second Hand Smoke Exposure: No Advance Directives Date on File: 12/15/22 service: No Current occupational status: retired Cognitive needs: No Hearing needs: No Vision needs: Yes Questionnaire PHQ-9 Over the last 2 weeks, how often have you been bothered by any of the following problems? 1. Little interest or pleasure in doing things: nearly every day 2. Feeling down, depressed, or hopeless: nearly every day 3. Trouble falling or staying asleep, or sleeping too much: several days 4. Feeling tired or having little energy: several days 5. Poor appetite or overeating: several days 6. Feeling bad about yourself - or that you are a failure or have let yourself or your family down: several days 7. Trouble concentrating on things, such as reading the newspaper or watching television: nearly every day 8. Moving or speaking so slowly that other people could have noticed. Or the opposite - being so fidgety or restless that you have been moving around a lot more than usual: nearly every day 9. Thoughts that you would be better off or of hurting yourself in some way: nearly every day Total score: 19 Depression Screening Interpretation: Positive (Established with psychiatrist on citalopram and bupropion) Depression Screening Follow-up: Existing condition and In treatment Depression Screening Done: Yes Source: Developed by Drs. Howard Dillon, Shobha Casas, Armando Gaspar and colleagues, with an educational aleah from [employer]. Thrive Questionnaire Date Thrive assessed: 11/04/24 I am a: Patient What is your living situation today?: I have a steady place to live Within the past 12 months, did the food you bought not last and you didn't have the money to get more?: Never true Within the past 12 months, did you worry whether your food would run out before you got money to buy more?: Never true Do you have trouble paying for medicines?: No Do you have trouble getting transportation to medical appointments?: No Do you have trouble paying your heating and electricity bill?: No Do you have trouble taking care of your child, family member or friend?: No Do you have trouble with day-to-day activities such as bathing, preparing meals, shopping, managing finances, etc.?: No Are you currently unemployed and looking for a job?: No Are you interested in more education?: No Please select the resources that you would like help with: None Currently or been in a relationship where the following occur: No concerns reported THRIVE Score: 0 VICENTA-7 AMB Questionnaire VICENTA-7 Date VICENTA - 7 assessed: 11/04/24 Feeling nervous, anxious, or on edge: 1 = Several days Not being able to stop or control worryin = Several days Worrying too much about different things: 1 = Several days Trouble relaxin = Several days Being so restless that it is hard to sit still: 2 = More than half the days Becoming easily annoyed or irritable: 0 = Not at all Feeling afraid as if something awful might happen: 0 = Not at all Total VICENTA-7 score (0-4 normal; 5-9 mild; 10-14 moderate; 15-21 severe): 6 Source: Developed by Drs. Howard Dillon, Shobha Casas, Armando Gaspar and colleagues, with an educational aleah from [employer]. Review of Systems Const All systems reviewed & are unremarkable except as noted in HPI and below ENT Reports no additional complaints Card Reports no additional complaints Resp Reports no additional complaints GI Reports no additional complaints Reports no additional complaints Physical exam (Primary Care) Vital Signs: Last Vital Signs Temp 98.2 F 12/25/24 11:03 Pulse 96 12/25/24 11:03 Resp 18 12/25/24 11:03 BP 96/58 L 12/25/24 11:03 Pulse Ox 99 12/25/24 11:03 Oxygen Delivery Method Room Air 12/25/24 11:03 BMI result Body Mass Index 21.8 Tobacco/Smoking Status: Tobacco use Status Tobacco use date assessed 12/25/24 12/25/24 11:13 Patient Tobacco Use Status Former Tobacco user 12/25/24 11:03 Tobacco use type Cigarette 12/25/24 11:03 e-Cigarette/Vaping Use Never Used 12/25/24 11:03 PHQ-9: PHQ-9 Score PHQ-9: Total score 19 12/25/24 11:13 Depression Screening Interpretation: Positive (Established with psychiatrist on citalopram and bupropion) Depression Screening Follow-up: Existing condition and In treatment Thrive Assessment: Date of Thrive Assessment Date Thrive assessed 11/04/24 12/25/24 11:03 Currently or been in a relationship where the following occur: No concerns reported Const General: no acute distress HENMT Head: Yes normal to inspection Face and sinus: Yes normal facial exam Neck Neck: Yes no lymphadenopathy and Yes supple Resp Effort & Inspection: normal respiratory effort Auscultation: clear to auscultation bilaterally Cardio Rhythm: regular rhythm Heart sounds: S1 normal heart sound present and S2 normal heart sound present GI Inspection: Yes normal to inspection Palpation (GI): Soft to palpation Percussion: Yes normal to percussion Auscultation: normal bowel sounds Extrem General: Yes no clubbing, cyanosis or edema Coding Level of Care Code Est Pt Prev Care >65y(27087) Diagnoses Bilateral subdural hematomas S06.5XAA Primary biliary cholangitis K74.3 Annual physical exam Z00.00 Assessment & Plan Assessment & Plan (1) Bilateral subdural hematomas: Comment: Diagnosed on MRI 09/2024 s/p MMA embolization at [facility] Code(s): S06.5XAA - Traumatic subdural hemorrhage with loss of consciousness status unknown, initial encounter Category: Medical Plan: Follow-up with neurology at [facility] (2) Primary biliary cholangitis: Comment: A very pleasant 66-year-old woman known to me from [facility] with history of liver transplant 2015- -PBC Recent liver biopsy shows recurrent PBC Code(s): K74.3 - Primary biliary cirrhosis Category: Medical Plan: FOLLOW-UP WITH [facility] (3) Annual physical exam: Code(s): Z00.00 - Encounter for general adult medical examination without abnormal findings Category: Medical Plan: Well-balanced high-protein diet regular physical activity discussed with the patient.
[2024-12-25 11:03] VITALS: BP 96/58; PULSE 96; RESP 18; TEMP 36.8; O2SAT 99; BMI 21.8
== END 2024-12-25 11:42 | disposition home or self-care (01) ==
LOC: HO.HMCC 10:57
PROVIDERS: PCP Internal Medicine; Visit Provider Internal Medicine
DX: Z00.01 Encounter for general adult medical examination with abnormal findings (principal); S06.5XAA Traumatic subdural hemorrhage with loss of consciousness status unknown, initial encounter; K74.3 Primary biliary cirrhosis

== ENCOUNTER → 2024-12-25 10:56 | Outpatient (BNVA) | payer MEDICARE, OTHER, SELFPAY | PROVIDERS: PCP Internal Medicine; Visit Provider Internal Medicine | DX: Z00.00 Encounter for general adult medical examination without abnormal findings (principal); K74.3 Primary biliary cirrhosis; S06.5XAD Traumatic subdural hemorrhage with loss of consciousness status unknown, subsequent encounter; T84.021D Dislocation of internal left hip prosthesis, subsequent encounter; X58.XXXD Exposure to other specified factors, subsequent encounter | CPT/HCPCS: 96127; 99397 ==